=== PATIENT | female | born 1945 | race Caucasian/White ===

== ENCOUNTER 2017-06-16 07:43 | Inpatient (IN) | payer MEDICARE, MEDICAID ==
[~2017-06-16] VITALS: Ht 160 cm; Wt 81.2 kg
[2017-06-16] VITALS (10 sets, daily range): BP systolic 88–122; BP diastolic 35–71
[2017-06-16] MEDS ORDERED: Ipratropium 0.02% Inh Soln 2.5ml UD HHN ONE (08:00)
[2017-06-16] MEDS ORDERED: Vancomycin 1.5gm/D5W 250ml 325 ML IVPB ONE (08:00)
[2017-06-16] MEDS ORDERED: Cefepime HCl 2 GM in NS 110 ML IV SCH (08:00)
[2017-06-16] MEDS ORDERED: Acetaminophen 500mg (ES) tab ORAL ONE (08:00)
[2017-06-16] MEDS ORDERED: Albuterol ud Inhalation HHN ONE (08:00)
[2017-06-16] MEDS ORDERED: LORazepam Inj 2mg/ml 1ml IV ONE (08:30)
[2017-06-16 08:32] LABS: HEMATOCRIT 41.7 % (37.0-47.0); HEMOGLOBIN 13.7 G/DL (12.0-16.0); MEAN CORPUSCULAR VOLUME 96 FL (80-99); PLATELET COUNT 235 K/UL (150-450); RED BLOOD COUNT 4.34 M/UL (4.20-5.40); RED CELL DISTRIBUTION WIDTH 12.3 % (11.6-14.8); WHITE BLOOD COUNT 14.8 K/UL (4.8-10.8)
[2017-06-16 08:45] LABS: ANION GAP 4 mmol/L (5-15); BLOOD UREA NITROGEN 12 mg/dL (7-18); CALCIUM 7.9 MG/DL (8.5-10.1); CARBON DIOXIDE 35 MMOL/L (21-32); CHLORIDE 94 MMOL/L (98-107); CREATININE 0.6 MG/DL (0.55-1.30); POTASSIUM 3.6 MMOL/L (3.5-5.1); SODIUM 133 MMOL/L (136-145)
[2017-06-16 08:48] LABS: ALANINE AMINOTRANSFERASE 52 U/L (12-78); ALBUMIN 2.6 G/DL (3.4-5.0); ALBUMIN/GLOBULIN RATIO 0.6 (1.0-2.7); ALKALINE PHOSPHATASE 105 U/L (46-116); ASPARTATE AMINO TRANSFERASE 23 U/L (15-37); BILIRUBIN,TOTAL 0.9 MG/DL (0.2-1.0)
[2017-06-16] MEDS ORDERED: Cefepime 2gm ONE (09:01)
[2017-06-16 09:13] LABS: APPEARANCE,URINE CLEAR; BILIRUBIN, URINE NEGATIVE (NEGATIVE); GLUCOSE, URINE (UA) NEGATIVE (NEGATIVE); KETONES,URINE 2+ (NEGATIVE); LEUKOCYTE ESTERASE ,URINE NEGATIVE (NEGATIVE); NITRITE,URINE NEGATIVE (NEGATIVE); PH,URINE 6 (4.5-8.0); PROTEIN,URINE 1+ (NEGATIVE); UROBILINOGEN,URINE 4 MG/DL (0.0-1.0)
[2017-06-16 09:15] LABS: COLOR,URINE YELLOW
--- NOTE | 2017-06-16 09:38 | Emergency Room Report ---
History of Present Illness General Chief Complaint: Dyspnea/Respdistress Source: Patient, EMS Present Illness HPI Patient presents from a alf facility. She presents by EMS for shortness of breath and decreased oxygen saturation. She has a history of congestive heart failure, schizophrenia and GERD. Per report, the patient had a desaturation into the high 80s at the alf facility. The patient states she has had a cough and shortness of breath for the past 3 days. She also has had sputum production. She denies abdominal pain or chest pain. She denies dysuria or hematuria. She has no other complaints. Allergies: Coded Allergies: HALOPERIDOL (Verified Allergy, Unknown, 06/16/17) PREDNISONE (Verified Allergy, Unknown, 06/16/17) Patient History Past Medical History: see triage record, HTN, NE, CAD, CHF, COPD, GERD, psych hx Social History: Denies: smoking, alcohol use, drug use Reviewed Nursing Documentation: PMH: Agreed, PSxH: Agreed Review of Systems All Other Systems: negative except mentioned in HPI Physical Exam Vital Signs Date Time Temp Pulse Resp B/P (MAP) Pulse Ox O2 Delivery O2 Flow Rate FiO2 06/16/17 07:39 100.9 80 23 124/70 98 Non-Rebreather 15.0 06/16/17 08:11 100 Sp02 EP Interpretation: reviewed, normal General Appearance: no apparent distress, alert, GCS 15, non-toxic Head: normocephalic, atraumatic Eyes: bilateral eye normal inspection, bilateral eye PERRL ENT: hearing grossly normal, normal pharynx, no angioedema, normal voice Neck: full range of motion, supple/symm/no masses Respiratory: chest non-tender, respiratory distress, accessory muscle use, rales, rhonchi, speaking full sentences Cardiovascular #1: no edema, tachycardia, irregularly irregular Gastrointestinal: normal bowel sounds, non tender, soft, non-distended, no guarding, no rebound Rectal: deferred Musculoskeletal: back normal, normal range of motion Neurologic: alert, responsive, motor strength/tone normal, sensory intact, speech normal Psychiatric: judgement/insight normal, mood/affect normal, no suicidal/ homicidal ideation Skin: normal color, no rash, warm/dry, well hydrated Medical Decision Making Diagnostic Impression: Primary Impression: Respiratory distress Additional Impressions: CHF exacerbation Fever Sepsis COPD exacerbation Atrial fibrillation with RVR ER Course This patient is complicated. She presented in respiratory distress and febrile. Initially, I thought that this patient had pneumonia. However, the patient had very severe rales throughout her lung howard. She was given broad- spectrum antibiotics. She's also found to be in CHF based on chest x-ray. Given the fever, as given broad-spectrum antibiotics. She's also found to be in atrial fibrillation with a rapid ventricular rate. She has a history of COPD was also treated as a COPD exacerbation in addition to getting IV lasix for CHF exacerbation. The patient was also placed on BiPAP do to her tachypnea and work of breathing. She did have significant improvement in her tachypnea, heart rate and work of breathing after treatment. She is admitted to the ICU step down. This patient is critically ill. This patient required complex medical decision- making, aggressive intervention, extensive laboratory workup and monitoring. Critical care time: 40 minutes. Laboratory Tests Test 06/16/17 08:00 06/16/17 08:50 White Blood Count 14.8 K/UL (4.8-10.8) H Red Blood Count 4.34 M/UL (4.20-5.40) Hemoglobin 13.7 G/DL (12.0-16.0) Hematocrit 41.7 % (37.0-47.0) Mean Corpuscular Volume 96 FL (80-99) Mean Corpuscular Hemoglobin 31.5 PG (27.0-31.0) H Mean Corpuscular Hemoglobin Concent 32.7 G/DL (32.0-36.0) Red Cell Distribution Width 12.3 % (11.6-14.8) Platelet Count 235 K/UL (150-450) Mean Platelet Volume 6.0 FL (6.5-10.1) L Neutrophils (%) (Auto) % (45.0-75.0) Lymphocytes (%) (Auto) % (20.0-45.0) Monocytes (%) (Auto) % (1.0-10.0) Eosinophils (%) (Auto) % (0.0-3.0) Basophils (%) (Auto) % (0.0-2.0) Neutrophils % (Manual) Pending Lymphocytes % (Manual) Pending Platelet Estimate Pending Platelet Morphology Pending Sodium Level 133 MMOL/L (136-145) L Potassium Level 3.6 MMOL/L (3.5-5.1) Chloride Level 94 MMOL/L (98-107) L Carbon Dioxide Level 35 MMOL/L (21-32) H Anion Gap 4 mmol/L (5-15) L Blood Urea Nitrogen 12 mg/dL (7-18) Creatinine 0.6 MG/DL (0.55-1.30) Estimate Glomerular Filtration Rate mL/min (>60) Glucose Level 119 MG/DL (74-106) H Lactic Acid Level 1.70 mmol/L (0.66-2.22) Calcium Level 7.9 MG/DL (8.5-10.1) L Total Bilirubin 0.9 MG/DL (0.2-1.0) Aspartate Amino Transferase (AST) 23 U/L (15-37) Alanine Aminotransferase (ALT) 52 U/L (12-78) Alkaline Phosphatase 105 U/L (46-116) Troponin I 0.052 ng/mL (0.000-0.056) Total Protein 7.0 G/DL (6.4-8.2) Albumin 2.6 G/DL (3.4-5.0) L Globulin 4.4 g/dL Albumin/Globulin Ratio 0.6 (1.0-2.7) L Urine Color Yellow Urine Appearance Clear Urine pH 6 (4.5-8.0) Urine Specific [place] 1.015 (1.005-1.035) Urine Protein 1+ (NEGATIVE) H Urine Glucose (UA) Negative (NEGATIVE) Urine Ketones 2+ (NEGATIVE) H Urine Occult Blood Negative (NEGATIVE) Urine Nitrite Negative (NEGATIVE) Urine Bilirubin Negative (NEGATIVE) Urine Urobilinogen 4 MG/DL (0.0-1.0) H Urine Leukocyte Esterase Negative (NEGATIVE) Urine RBC Pending Urine WBC Pending Urine Squamous Epithelial Cells Pending Urine Bacteria Pending Microbiology Date/Time Source Procedure Growth Status 06/16/17 08:12 Nasal Nares Influenza Types A,B Antigen (LANCE) - Final Complete EKG Diagnostic Results Rate: tachycardiac Rhythm: other - A.fib ST Segments: no acute changes Other Impression A.fib w/RVR Rhythm Strip Diag. Results EP Interpretation: yes Rate: 120's Rhythm: no PVC's, other Other Impression A.fib w/RVR Chest X-Ray Diagnostic Results Chest X-Ray Diagnostic Results : Chest X-Ray Ordered: Yes # of Views/Limited/Complete: 1 View Indication: Shortness of Breath EP Interpretation: Yes Interpretation: other Impression: Other - Diffuse patchy opacities Last Vital Signs Date Time Temp Pulse Resp B/P (MAP) Pulse Ox O2 Delivery O2 Flow Rate FiO2 06/16/17 09:08 112 16 98 Facial 100 06/16/17 08:00 15.0 06/16/17 08:00 88/71 06/16/17 07:54 101.4 Disposition: ADMITTED INPATIENT Condition: Critical Referrals: [facility] INFANTE (PCP) KRISTY HUNT D.O. Jun 16, 2017 09:38
--- NOTE | 2017-06-16 12:49 | Diagnostic Imaging Report ---
Indication: Shortness of breath Technique: One view of the chest Comparison: none Findings: There is generalized mild interstitial prominence, and central bronchial wall thickening. There is slight blunting of left costophrenic sulcus. The heart is borderline enlarged. There is surgical hardware in the left humerus Impression: Generalized mild interstitial prominence with central bronchial wall thickening. Suspect on the basis of chronic/senescent changes, but mild interstitial congestion not completely excludable Cannot rule out small left pleural effusion
[2017-06-16] MEDS ORDERED: Albuterol/Ipratropium 3ml neb HHN PRN (13:00)
[2017-06-16] MEDS ORDERED: LORazepam Inj 2mg/ml 1ml IV PRN (13:00)
[2017-06-16] MEDS ORDERED: Nitroglycerin Subl 0.4mg tab SL PRN (13:00)
[2017-06-16] MEDS ORDERED: VENTOLIN HFA18 GM INH (15:14)
[2017-06-16] MEDS ORDERED: FOLIC ACID1 MG ORAL (15:14)
[2017-06-16] MEDS ORDERED: METOPROLOL TART25 MG ORAL ×2 (15:14→20:04)
[2017-06-16] MEDS ORDERED: FUROSEMIDE20 M1 ORAL (15:14)
[2017-06-16] MEDS ORDERED: FERROUS SULFAT325 M2 ORAL (15:14)
[2017-06-16] MEDS ORDERED: DIVALPROEX SOD500 M2 PO (15:14)
[2017-06-16] MEDS ORDERED: DULCOLAX10 MG RC (15:14)
[2017-06-16] MEDS ORDERED: PROTONIX40 MG ORAL (15:14)
[2017-06-16] MEDS ORDERED: LYRICA50 MG ORAL ×2 (15:14→20:04)
[2017-06-16] MEDS ORDERED: POTASSIUM CHLO10 ME2 PO (15:14)
[2017-06-16] MEDS ORDERED: MOM30 ML ORAL (15:14)
[2017-06-16] MEDS ORDERED: LEVOTHYROXINE125 MCG ORAL ×2 (15:14→20:16)
[2017-06-16] MEDS ORDERED: SENNA LAXATIVE1 EAC1 PO (15:14)
[2017-06-16] MEDS ORDERED: VITAMIN B122500 MCG PO (15:14)
[2017-06-16] MEDS ORDERED: TYLENOL EXTRA500 MG ORAL (15:14)
[2017-06-16] MEDS ORDERED: FLEET ENEMA133 M1 RC (15:14)
--- NOTE | 2017-06-16 15:52 | Cardiology Report ---
APPROVED REPORT EXAM: Two-dimensional and M-mode echocardiogram with Doppler and color Doppler. INDICATION LV FUNCTION M-Mode DIMENSIONS IVSd2.1 (0.7-1.1cm)Left Atrium (MM)4.7 (1.6-4.0cm) LVDd3.8 (3.5-5.6cm)Aortic Root3.2 (2.0-3.7cm) PWd1.9 (0.7-1.1cm)Aortic Cusp Exc.1.8 (1.5-2.0cm) IVSs2.0 cm LVDs2.7 (2.5-4.0cm) PWs2.0 cm Technically difficult study due to poor acoustical window and patient position. This study precludes analysis of LV wall motion and function. Mild left ventricular hypertrophy by 2-D. No evidence of pericardial effusion All other cardiac chamber size are within normal limits. Thickened mitral valve leaflets with normal excursion. Mitral annulus and aortic root calcification. Pulmonic valve are not well visualized . Normal tricuspid valve structure. IVC dilated at size 3.3with physiologic collapse . Subcostal views can not obtained. A color flow and spectral Doppler study was performed and revealed: Trace tricuspid regurgitation. Tricuspid systolic velocities suggests peak right ventricular systolic pressure of 20 mmHg . No Pulmonic regurgitation present.
[2017-06-16] MEDS ORDERED: Zosyn 3.375gm inj ONE ×2 (16:17→22:10)
[2017-06-16] MEDS: Piperacillin/Tazobactam 3.375 GM in NS 110 ML IVPB SCH ×2 (16:25→22:20)
[2017-06-16] MEDS ORDERED: ZOFRAN4 M3 ORAL (20:04)
[2017-06-16] MEDS ORDERED: SENNA-DOCUSATE1 EACH PO (20:04)
[2017-06-16] MEDS ORDERED: LACTULOSE20 GM/301 ORAL (20:04)
[2017-06-16] MEDS ORDERED: FERROUS SULFAT325 MG ORAL (20:04)
[2017-06-16] MEDS ORDERED: POTASSIUM CHLO10 MEQ ORAL (20:04)
[2017-06-16] MEDS ORDERED: LEVOTHYROXINE150 MCG ORAL (20:04)
[2017-06-16] MEDS ORDERED: NYSTATIN15 GM TOPIC (20:04)
[2017-06-16] MEDS ORDERED: ZYPREXA2.5 MG ORAL (20:04)
[2017-06-16] MEDS ORDERED: MAG-OXIDE400 M1 PO (20:04)
[2017-06-16] MEDS ORDERED: ADVAIR 100-501 EACH INH (20:04)
[2017-06-16] MEDS ORDERED: LORAZEPAM1 MG ORAL (20:04)
[2017-06-16] MEDS ORDERED: NORCO 5-325 TA1 EACH ORAL (20:04)
[2017-06-16] MEDS ORDERED: ACETAMINOPHEN325 M1 ORAL (20:18)
[2017-06-16] MEDS ORDERED: SENNA8.6 M2 PO (20:23)
[2017-06-16] MEDS: Theophylline ER 100mg ORAL SCH (22:19)
[2017-06-16] MEDS: Heparin 5000 units/ml inj SUBQ SCH (22:19)
--- NOTE | 2017-06-16 22:39 | History and Physical ---
History of Present Illness General Date patient seen: Jun 15, 2017 Reason for Hospitalization: Dyspnea/Respdistress Present Illness HPI 71 year old patient wtih PMHx of COPD, schizopherenia, MELVIN, BIPAP, congestive heart failure, schizophrenia presented from a detention facility for shortness of breath and decreased oxygen saturation. the patient had a desaturation into the high 80s at the detention facility. The patient states she has had a cough and shortness of breath for the past 3 days. She also has had sputum production. She was febrile in ER and had rapid afib. she is being transferred to [facility] for further evaluation. Allergies: Coded Allergies: HALOPERIDOL (Verified Allergy, Unknown, 06/16/17) PREDNISONE (Verified Allergy, Unknown, 06/16/17) Medication History Scheduled Albuterol Sulfate (Ventolin Hfa), 2 PUFFS INH EVERY 6 HOURS, (Reported) Divalproex Sodium (Divalproex Sodium Er), 500 MG PO Q12HR, (Reported) Ferrous Sulfate* (Ferrous Sulfate*), 325 MG ORAL THREE TIMES A DAY, (Reported) Folic Acid* (Folic Acid*), 1 MG ORAL DAILY, (Reported) Furosemide* (Lasix*), 20 MG ORAL DAILY, (Reported) Lactulose (Lactulose*), 30 ML ORAL BID, (Reported) Levothyroxine Sodium* (Levothyroxine Sodium*), 125 MCG ORAL DAILY, (Reported) Magnesium Hydroxide (Milk of Magnesia), 30 ML ORAL DAILY, (Reported) Metoprolol Tartrate* (Metoprolol Tartrate*), 25 MG ORAL EVERY 12 HOURS, ( Reported) Pantoprazole* (Protonix*), 40 MG ORAL BID, (Reported) Potassium Chloride* (K-Dur*), 10 MEQ ORAL DAILY, (Reported) Pregabalin (Lyrica), 50 MG ORAL DAILY, (Reported) Scheduled PRN Acetaminophen* (Tylenol Extra Strength*), 650 MG ORAL Q4HR PRN for Mild Pain ( Pain Scale 1-3), (Reported) Acetaminophen* (Acetaminophen 325MG Tablet*), 650 MG ORAL Q4H PRN for TEMP <101, (Reported) Na Phos,M-B/Na Phos,Di-Ba (Fleet Enema), 133 ML RC EVERY OTHER DAY PRN for Constipation, (Reported) Sennosides (Senna), 17.2 MG PO DAILY PRN for Constipation, (Reported) Miscellaneous Medications Bisacodyl (Dulcolax), 10 MG RC, (Reported) Cyanocobalamin (Vitamin B-12) (Vitamin B12), 100 MCG PO, (Reported) Patient History Healthcare decision maker Resuscitation status Advanced Directive on File Past Medical/Surgical History Past Medical/Surgical History: (1) COPD (chronic obstructive pulmonary disease) (2) CHF (congestive heart failure) (3) MELVIN (obstructive sleep apnea) Review of Systems Respiratory: Reports: shortness of breath, sputum All Other Systems: negative except mentioned in HPI Physical Exam General Appearance: WD/WN Lines, tubes and drains: peripheral HEENT: normocephalic, atraumatic Neck: non-tender, supple Respiratory/Chest: lungs clear, rhonchi - bilaterally Cardiovascular/Chest: normal peripheral pulses Abdomen: normal bowel sounds Genitourinary/Rectal: normal genital exam, normal prostate exam Extremities: normal range of motion Last 24 Hour Vital Signs Date Time Temp Pulse Resp B/P (MAP) Pulse Ox O2 Delivery O2 Flow Rate FiO2 06/16/17 21:16 120 26 98 Facial 45 06/16/17 19:17 126 29 96 Facial 45 06/16/17 19:00 132 27 103/35 94 Non-Rebreather 15.0 45 06/16/17 17:30 120 25 111/52 95 Non-Rebreather 15.0 45 06/16/17 16:50 125 23 93 Facial 45 06/16/17 15:30 124 22 111/44 93 Non-Rebreather 15.0 45 06/16/17 14:54 125 21 96 Facial 45 06/16/17 14:00 119 24 113/46 97 Non-Rebreather 15.0 45 06/16/17 13:00 106 20 92/47 93 Non-Rebreather 15.0 45 106 06/16/17 12:34 121 20 92 Facial 45 06/16/17 12:00 113 19 122/46 97 Non-Rebreather 15.0 45 06/16/17 10:37 15.0 45 06/16/17 10:30 127 20 98 Facial 45 06/16/17 10:00 19 110/52 94 Non-Rebreather 15.0 100 06/16/17 09:08 112 16 98 Facial 100 06/16/17 08:25 111 21 98 Bi-pap 100 06/16/17 08:14 125 21 98 Facial 100 06/16/17 08:11 125 25 98 Bi-pap 100 06/16/17 08:11 125 25 Bi-pap 100 06/16/17 08:00 121 22 Non-Rebreather 15.0 06/16/17 08:00 121 22 88/71 98 Non-Rebreather 15.0 06/16/17 08:00 100 06/16/17 07:54 101.4 06/16/17 07:39 100.9 80 23 124/70 98 Non-Rebreather 15.0 Laboratory Tests Test 06/16/17 08:00 06/16/17 08:50 06/16/17 10:05 White Blood Count 14.8 K/UL (4.8-10.8) H Red Blood Count 4.34 M/UL (4.20-5.40) Hemoglobin 13.7 G/DL (12.0-16.0) Hematocrit 41.7 % (37.0-47.0) Mean Corpuscular Volume 96 FL (80-99) Mean Corpuscular Hemoglobin 31.5 PG (27.0-31.0) H Mean Corpuscular Hemoglobin Concent 32.7 G/DL (32.0-36.0) Red Cell Distribution Width 12.3 % (11.6-14.8) Platelet Count 235 K/UL (150-450) Mean Platelet Volume 6.0 FL (6.5-10.1) L Neutrophils (%) (Auto) % (45.0-75.0) Lymphocytes (%) (Auto) % (20.0-45.0) Monocytes (%) (Auto) % (1.0-10.0) Eosinophils (%) (Auto) % (0.0-3.0) Basophils (%) (Auto) % (0.0-2.0) Differential Total Cells Counted 100 Neutrophils % (Manual) 79 % (45-75) H Lymphocytes % (Manual) 3 % (20-45) L Monocytes % (Manual) 14 % (1-10) H Eosinophils % (Manual) 0 % (0-3) Basophils % (Manual) 0 % (0-2) Band Neutrophils 4 % (0-8) Platelet Estimate Adequate Platelet Morphology Normal Red Blood Cell Morphology Normal Sodium Level 133 MMOL/L (136-145) L Potassium Level 3.6 MMOL/L (3.5-5.1) Chloride Level 94 MMOL/L (98-107) L Carbon Dioxide Level 35 MMOL/L (21-32) H Anion Gap 4 mmol/L (5-15) L Blood Urea Nitrogen 12 mg/dL (7-18) Creatinine 0.6 MG/DL (0.55-1.30) Estimat Glomerular Filtration Rate mL/min (>60) Glucose Level 119 MG/DL (74-106) H Lactic Acid Level 1.70 mmol/L (0.66-2.22) Calcium Level 7.9 MG/DL (8.5-10.1) L Total Bilirubin 0.9 MG/DL (0.2-1.0) Aspartate Amino Transf (AST/SGOT) 23 U/L (15-37) Alanine Aminotransferase (ALT/SGPT) 52 U/L (12-78) Alkaline Phosphatase 105 U/L (46-116) Troponin I 0.052 ng/mL (0.000-0.056) Total Protein 7.0 G/DL (6.4-8.2) Albumin 2.6 G/DL (3.4-5.0) L Globulin 4.4 g/dL Albumin/Globulin Ratio 0.6 (1.0-2.7) L Urine Color Yellow Urine Appearance Clear Urine pH 6 (4.5-8.0) Urine Specific [place] 1.015 (1.005-1.035) Urine Protein 1+ (NEGATIVE) H Urine Glucose (UA) Negative (NEGATIVE) Urine Ketones 2+ (NEGATIVE) H Urine Occult Blood Negative (NEGATIVE) Urine Nitrite Negative (NEGATIVE) Urine Bilirubin Negative (NEGATIVE) Urine Urobilinogen 4 MG/DL (0.0-1.0) H Urine Leukocyte Esterase Negative (NEGATIVE) Urine RBC 0-2 /HPF (0 - 2) Urine WBC 0-2 /HPF (0 - 2) Urine Squamous Epithelial Cells Few /LPF (NONE/OCC) Urine Bacteria Few /HPF (NONE) Urine Mucus Few /LPF (NONE/OCC) H Arterial Blood pH 7.410 (7.350-7.450) Arterial Blood Partial Pressure CO2 57.0 mmHg (35.0-45.0) *H Arterial Blood Partial Pressure O2 278.5 mmHg (75.0-100.0) H Arterial Blood HCO3 35.6 mmol/L (22.0-26.0) H Arterial Blood Oxygen Saturation 99.6 % (92.0-98.0) H Arterial Blood Base Excess 9.0 Nathan Test Positive Microbiology Date/Time Source Procedure Growth Status 06/16/17 08:12 Nasal Nares Influenza Types A,B Antigen (LANCE) - Final Complete Height (Feet): 5 Height (Inches): 4.00 Weight (Pounds): 180 Medications Current Medications Medications (Trade) Dose Ordered Sig/Marleni Route PRN Reason Start Time Stop Time Status Last Admin Dose Admin Albuterol/ Ipratropium (Albuterol/ Ipratropium) 3 ml Q4H PRN HHN dyspnea 06/16/17 13:00 06/21/17 12:59 Dextrose (Dextrose 50%) STAT PRN IV Hypoglycemia 06/16/17 13:00 07/16/17 12:59 Heparin Sodium (Porcine) (Heparin 5000 units/ml) 5,000 units EVERY 12 HOURS SUBQ 06/16/17 21:00 07/16/17 20:59 06/16/17 22:19 Ketorolac Tromethamine (Toradol 30mg) 30 mg Q8H PRN IV Moderate Pain (Pain Scale 4-6) 06/16/17 13:00 06/21/17 12:59 Lorazepam (Ativan 2mg/ml 1ml) 0.5 mg Q4H PRN IV For Anxiety 06/16/17 13:00 06/23/17 12:59 Morphine Sulfate (Morphine Sulfate) 2 mg Q4H PRN IVP Severe Pain (Pain Scale 7-10) 06/16/17 13:00 06/23/17 12:59 Nitroglycerin (Ntg) 0.4 mg Q5M X 3 DOSES PRN SL Prn Chest Pain 06/16/17 13:00 07/16/17 12:59 Ondansetron HCl (Zofran) 4 mg Q6H PRN IVP Nausea & Vomiting 06/16/17 13:00 07/16/17 12:59 Piperacillin Sod/ Tazobactam Sod 3.375 gm/Sodium Chloride 110 ml @ 220 mls/hr EVERY 8 HOURS IVPB 06/16/17 14:00 06/23/17 13:59 06/16/17 22:20 Promethazine HCl/ Codeine (Phenergan with Codeine) 5 ml Q6H PRN ORAL cough 06/16/17 13:00 07/16/17 12:59 Temazepam (Restoril) 15 mg HSPRN PRN ORAL Insomnia 06/16/17 21:00 06/23/17 20:59 Theophylline (Puma-Dur) 100 mg EVERY 12 HOURS ORAL 06/16/17 21:00 07/16/17 20:59 06/16/17 22:19 Assessment/Plan Problem List: (1) Respiratory distress ICD Codes: R06.03 - Acute respiratory distress SNOMED: 068018507 (2) CHF exacerbation ICD Codes: I50.9 - Heart failure, unspecified SNOMED: 47174498 (3) Atrial fibrillation with RVR ICD Codes: I48.91 - Unspecified atrial fibrillation SNOMED: 306644022848919 (4) COPD exacerbation ICD Codes: J44.1 - Chronic obstructive pulmonary disease with (acute) exacerbation SNOMED: 957377237582347 (5) Fever ICD Codes: R50.9 - Fever, unspecified SNOMED: 704261572 (6) MELVIN (obstructive sleep apnea) ICD Codes: G47.33 - Obstructive sleep apnea (adult) (pediatric) SNOMED: 15408715 Assessment/Plan respiratory treatment IV abx check sputum titrate fio2 cardizem cardio and ID to see. GURINDER ROY Jun 16, 2017 22:39
[2017-06-17] VITALS (12 sets, daily range): BP systolic 91–155; BP diastolic 36–88
[2017-06-17] MEDS ORDERED: Zosyn 3.375gm inj ONE (00:41)
[2017-06-17] MEDS ORDERED: dilTIAZem HCl 25mg/5ml Inj IVP ONE (01:15)
[2017-06-17] MEDS ORDERED: dilTIAZem HCl 125mg/25ml Inj IVPB ONE (02:17)
[2017-06-17] MEDS: Piperacillin/Tazobactam 3.375 GM in NS 110 ML IVPB SCH ×3 (05:49→21:18)
[2017-06-17] MEDS: Heparin 5000 units/ml inj SUBQ SCH ×2 (08:43→21:18)
[2017-06-17] MEDS: Theophylline ER 100mg ORAL SCH ×2 (09:00→21:18)
[2017-06-17] MEDS ORDERED: Pneumococcal Vaccine 25mcg/0.5ml IM ONE (09:00)
[2017-06-17] MEDS: Ketorolac 30mg Inj IV PRN ×2 (10:37→18:40)
--- NOTE | 2017-06-17 12:16 | Pulmonology Progress Note ---
Assessment/Plan Problems: (1) Respiratory distress (2) CHF exacerbation (3) Atrial fibrillation with RVR (4) COPD exacerbation (5) Fever (6) MELVIN (obstructive sleep apnea) Assessment/Plan afebrile doing better continue abx check cxr and bnp f/u cardio recommendations Subjective Interval Events: still on bipap, desaturated upon stopping BIPAP Allergies: Coded Allergies: HALOPERIDOL (Verified Allergy, Unknown, 06/16/17) PREDNISONE (Verified Allergy, Unknown, 06/16/17) Objective Last 24 Hour Vital Signs Date Time Temp Pulse Resp B/P (MAP) Pulse Ox O2 Delivery O2 Flow Rate FiO2 06/17/17 11:02 101 20 155/54 91 Bi-pap 45 06/17/17 10:54 120 21 92 Facial 45 06/17/17 09:36 101 19 97 Facial 45 06/17/17 08:00 98.2 133 20 111/54 90 Bi-pap 45 06/17/17 08:00 45 06/17/17 07:46 84 19 95 Facial 45 06/17/17 06:00 98.5 89 20 109/57 93 Bi-pap 45 06/17/17 05:19 71 18 96 Facial 45 06/17/17 05:05 101 06/17/17 04:00 15.0 45 06/17/17 04:00 98.3 105 20 103/61 95 Bi-pap 45 06/17/17 03:02 112 19 97 Facial 45 06/17/17 02:32 129 125/68 06/17/17 01:53 147 147/85 06/17/17 00:55 115 27 97 Facial 45 06/17/17 00:50 101.4 123 18 127/88 98 Bi-pap 06/17/17 00:50 98.9 129 22 127/88 97 Bi-pap 06/16/17 23:05 93 18 96 Facial 45 06/16/17 23:00 98.9 131 25 121/69 97 Bi-pap 06/16/17 21:16 120 26 98 Facial 45 06/16/17 21:00 98.9 130 26 115/56 97 Bi-pap 06/16/17 19:17 126 29 96 Facial 45 06/16/17 19:00 132 27 103/35 94 Non-Rebreather 15.0 45 06/16/17 17:30 120 25 111/52 95 Non-Rebreather 15.0 45 06/16/17 16:50 125 23 93 Facial 45 06/16/17 15:30 124 22 111/44 93 Non-Rebreather 15.0 45 06/16/17 14:54 125 21 96 Facial 45 06/16/17 14:00 119 24 113/46 97 Non-Rebreather 15.0 45 06/16/17 13:00 106 20 92/47 93 Non-Rebreather 15.0 45 106 06/16/17 12:34 121 20 92 Facial 45 Intake and Output 06/16/17 06/17/17 19:00 07:00 Intake Total 260 ml 211.0 ml Balance 260 ml 211.0 ml Intake IV Total 260 ml 91.0 ml Other 120 ml # Voids 2 # Bowel Movements 2 Objective General Appearance: Obese Lines, tubes and drains: peripheral HEENT: normocephalic, atraumatic Neck: non-tender, supple Respiratory/Chest: lungs clear, rhonchi - bilaterally Cardiovascular/Chest: normal peripheral pulses Abdomen: normal bowel sounds Genitourinary/Rectal: normal genital exam, normal prostate exam Extremities: normal range of motion Microbiology Date/Time Source Procedure Growth Status 06/16/17 08:12 Nasal Nares Influenza Types A,B Antigen (LANCE) - Final Complete Current Medications Medications (Trade) Dose Ordered Sig/Marleni Route PRN Reason Start Time Stop Time Status Last Admin Dose Admin Albuterol/ Ipratropium (Albuterol/ Ipratropium) 3 ml Q4H PRN HHN dyspnea 06/16/17 13:00 06/21/17 12:59 Dextrose (Dextrose 50%) STAT PRN IV Hypoglycemia 06/16/17 13:00 07/16/17 12:59 Diltiazem HCl 125 mg/Dextrose 125 ml @ 0 mls/hr Q24H IV 06/17/17 01:30 06/18/17 01:29 06/17/17 02:32 Heparin Sodium (Porcine) (Heparin 5000 units/ml) 5,000 units EVERY 12 HOURS SUBQ 06/16/17 21:00 07/16/17 20:59 06/17/17 08:43 Influenza Virus Vaccine Quadrival (Flu Vaccine Quadrivalent) 0.5 ml ONCE ONCE IM 06/17/17 09:00 06/17/17 09:01 UNV Ketorolac Tromethamine (Toradol 30mg) 30 mg Q8H PRN IV Moderate Pain (Pain Scale 4-6) 06/16/17 13:00 06/21/17 12:59 06/17/17 10:37 Lorazepam (Ativan 2mg/ml 1ml) 0.5 mg Q4H PRN IV For Anxiety 06/16/17 13:00 06/23/17 12:59 Morphine Sulfate (Morphine Sulfate) 2 mg Q4H PRN IVP Severe Pain (Pain Scale 7-10) 06/16/17 13:00 06/23/17 12:59 Nitroglycerin (Ntg) 0.4 mg Q5M X 3 DOSES PRN SL Prn Chest Pain 06/16/17 13:00 07/16/17 12:59 Ondansetron HCl (Zofran) 4 mg Q6H PRN IVP Nausea & Vomiting 06/16/17 13:00 07/16/17 12:59 Piperacillin Sod/ Tazobactam Sod 3.375 gm/Sodium Chloride 110 ml @ 220 mls/hr EVERY 8 HOURS IVPB 06/16/17 14:00 06/23/17 13:59 06/17/17 05:49 Pneumococcal Polyvalent Vaccine (Pneumovax) 0.5 ml ONCE ONCE IM 06/17/17 09:00 06/17/17 09:01 UNV Promethazine HCl/ Codeine (Phenergan with Codeine) 5 ml Q6H PRN ORAL cough 06/16/17 13:00 07/16/17 12:59 Temazepam (Restoril) 15 mg HSPRN PRN ORAL Insomnia 06/16/17 21:00 06/23/17 20:59 Theophylline (Puma-Dur) 100 mg EVERY 12 HOURS ORAL 06/16/17 21:00 07/16/17 20:59 06/16/17 22:19 GURINDER ROY Jun 17, 2017 12:16
[2017-06-17 13:28] LABS: HEMOGLOBIN 12.2 G/DL (12.0-16.0); MEAN CORPUSCULAR VOLUME 96 FL (80-99); PLATELET COUNT 214 K/UL (150-450); RED BLOOD COUNT 3.74 M/UL (4.20-5.40); RED CELL DISTRIBUTION WIDTH 11.8 % (11.6-14.8); WHITE BLOOD COUNT 12.2 K/UL (4.8-10.8)
[2017-06-17 13:45] LABS: ALANINE AMINOTRANSFERASE 30 U/L (12-78); ALBUMIN/GLOBULIN RATIO 0.5 (1.0-2.7); ALKALINE PHOSPHATASE 75 U/L (46-116); ANION GAP 5 mmol/L (5-15); ASPARTATE AMINO TRANSFERASE 7 U/L (15-37); BILIRUBIN,TOTAL 0.6 MG/DL (0.2-1.0); BLOOD UREA NITROGEN 11 mg/dL (7-18); CALCIUM 7.7 MG/DL (8.5-10.1); CARBON DIOXIDE 36 MMOL/L (21-32); CHLORIDE 97 MMOL/L (98-107); CREATININE 0.5 MG/DL (0.55-1.30); POTASSIUM 3.4 MMOL/L (3.5-5.1); SODIUM 138 MMOL/L (136-145)
--- NOTE | 2017-06-17 17:35 | Cardiology Progress Note ---
Assessment/Plan Assessment/Plan [id number] mat no need for Cardizem treat underlying pulm insuf hs of gib needing multiple transfusion dn duodenal artery embolization hs of chf /dhf ef previously 45-50 by report Objective Last 24 Hour Vital Signs Date Time Temp Pulse Resp B/P (MAP) Pulse Ox O2 Delivery O2 Flow Rate FiO2 06/17/17 16:00 45 06/17/17 16:00 70 20 91/36 92 Bi-pap 45 06/17/17 15:05 110 21 95 Facial 45 06/17/17 15:00 91 20 94/60 92 Bi-pap 45 06/17/17 14:00 88 20 105/36 94 Bi-pap 45 06/17/17 13:37 116 17 94 Facial 45 06/17/17 13:00 98.1 102 16 100/66 94 Bi-pap 45 06/17/17 12:00 101 20 101/40 91 Bi-pap 45 06/17/17 12:00 45 06/17/17 11:02 101 20 155/54 91 Bi-pap 45 06/17/17 10:54 120 21 92 Facial 45 06/17/17 09:36 101 19 97 Facial 45 06/17/17 08:00 98.2 133 20 111/54 90 Bi-pap 45 06/17/17 08:00 45 06/17/17 07:46 84 19 95 Facial 45 06/17/17 06:00 98.5 89 20 109/57 93 Bi-pap 45 06/17/17 05:19 71 18 96 Facial 45 06/17/17 05:05 101 06/17/17 04:00 15.0 45 06/17/17 04:00 98.3 105 20 103/61 95 Bi-pap 45 06/17/17 03:02 112 19 97 Facial 45 06/17/17 02:32 129 125/68 06/17/17 01:53 147 147/85 06/17/17 00:55 115 27 97 Facial 45 06/17/17 00:50 101.4 123 18 127/88 98 Bi-pap 06/17/17 00:50 98.9 129 22 127/88 97 Bi-pap 06/16/17 23:05 93 18 96 Facial 45 06/16/17 23:00 98.9 131 25 121/69 97 Bi-pap 06/16/17 21:16 120 26 98 Facial 45 06/16/17 21:00 98.9 130 26 115/56 97 Bi-pap 06/16/17 19:17 126 29 96 Facial 45 06/16/17 19:00 132 27 103/35 94 Non-Rebreather 15.0 45 Intake and Output 06/16/17 06/17/17 19:00 07:00 Intake Total 260 ml 211.0 ml Balance 260 ml 211.0 ml Intake IV Total 260 ml 91.0 ml Other 120 ml # Voids 2 # Bowel Movements 2 Laboratory Tests Test 06/17/17 13:00 White Blood Count 12.2 K/UL (4.8-10.8) H Red Blood Count 3.74 M/UL (4.20-5.40) L Hemoglobin 12.2 G/DL (12.0-16.0) Hematocrit 36.0 % (37.0-47.0) L Mean Corpuscular Volume 96 FL (80-99) Mean Corpuscular Hemoglobin 32.7 PG (27.0-31.0) H Mean Corpuscular Hemoglobin Concent 33.9 G/DL (32.0-36.0) Red Cell Distribution Width 11.8 % (11.6-14.8) Platelet Count 214 K/UL (150-450) Mean Platelet Volume 5.9 FL (6.5-10.1) L Neutrophils (%) (Auto) % (45.0-75.0) Lymphocytes (%) (Auto) % (20.0-45.0) Monocytes (%) (Auto) % (1.0-10.0) Eosinophils (%) (Auto) % (0.0-3.0) Basophils (%) (Auto) % (0.0-2.0) Differential Total Cells Counted 100 Neutrophils % (Manual) 87 % (45-75) H Lymphocytes % (Manual) 8 % (20-45) L Monocytes % (Manual) 5 % (1-10) Eosinophils % (Manual) 0 % (0-3) Basophils % (Manual) 0 % (0-2) Band Neutrophils 0 % (0-8) Platelet Estimate Adequate Platelet Morphology Normal Red Blood Cell Morphology Normal Sodium Level 138 MMOL/L (136-145) Potassium Level 3.4 MMOL/L (3.5-5.1) L Chloride Level 97 MMOL/L (98-107) L Carbon Dioxide Level 36 MMOL/L (21-32) H Anion Gap 5 mmol/L (5-15) Blood Urea Nitrogen 11 mg/dL (7-18) Creatinine 0.5 MG/DL (0.55-1.30) L Estimat Glomerular Filtration Rate mL/min (>60) Glucose Level 93 MG/DL (74-106) Calcium Level 7.7 MG/DL (8.5-10.1) L Total Bilirubin 0.6 MG/DL (0.2-1.0) Aspartate Amino Transf (AST/SGOT) 7 U/L (15-37) L Alanine Aminotransferase (ALT/SGPT) 30 U/L (12-78) Alkaline Phosphatase 75 U/L (46-116) Total Protein 6.2 G/DL (6.4-8.2) L Albumin 2.0 G/DL (3.4-5.0) L Globulin 4.2 g/dL Albumin/Globulin Ratio 0.5 (1.0-2.7) L Microbiology Date/Time Source Procedure Growth Status 06/16/17 08:12 Nasal Nares Influenza Types A,B Antigen (LANCE) - Final Complete TIFFANI RINCON Jun 17, 2017 17:35
--- NOTE | 2017-06-17 17:40 | Consultation ---
History of Present Illness General Date patient seen: Jun 17, 2017 Time patient seen: 17:28 Chief Complaint: Dyspnea/Respdistress Present Illness HPI 71 y/o F with hx of HTN, AR, CAD, CHF, COPD, GERD, schizophrenia, SNF resident is brought by EMS to ED on 06/16 for SOB and hypoxia into the 80s at SNF. ALso had productive cough and SOB for 3 days Denied abd pain, CP, urinary symptoms upon admission. Febrile up to 101.4. Requiring Bipap. Leukocytosis up to 14, now improving. + sick contacts. Allergies: Coded Allergies: HALOPERIDOL (Verified Allergy, Unknown, 06/16/17) PREDNISONE (Verified Allergy, Unknown, 06/16/17) Medication History Scheduled Albuterol Sulfate (Ventolin Hfa), 2 PUFFS INH EVERY 6 HOURS, (Reported) Divalproex Sodium (Divalproex Sodium Er), 500 MG PO Q12HR, (Reported) Ferrous Sulfate* (Ferrous Sulfate*), 325 MG ORAL THREE TIMES A DAY, (Reported) Folic Acid* (Folic Acid*), 1 MG ORAL DAILY, (Reported) Furosemide* (Lasix*), 20 MG ORAL DAILY, (Reported) Lactulose (Lactulose*), 30 ML ORAL BID, (Reported) Levothyroxine Sodium* (Levothyroxine Sodium*), 125 MCG ORAL DAILY, (Reported) Magnesium Hydroxide (Milk of Magnesia), 30 ML ORAL DAILY, (Reported) Metoprolol Tartrate* (Metoprolol Tartrate*), 25 MG ORAL EVERY 12 HOURS, ( Reported) Pantoprazole* (Protonix*), 40 MG ORAL BID, (Reported) Potassium Chloride* (K-Dur*), 10 MEQ ORAL DAILY, (Reported) Pregabalin (Lyrica), 50 MG ORAL DAILY, (Reported) Scheduled PRN Acetaminophen* (Tylenol Extra Strength*), 650 MG ORAL Q4HR PRN for Mild Pain ( Pain Scale 1-3), (Reported) Acetaminophen* (Acetaminophen 325MG Tablet*), 650 MG ORAL Q4H PRN for TEMP <101, (Reported) Na Phos,M-B/Na Phos,Di-Ba (Fleet Enema), 133 ML RC EVERY OTHER DAY PRN for Constipation, (Reported) Sennosides (Senna), 17.2 MG PO DAILY PRN for Constipation, (Reported) Miscellaneous Medications Bisacodyl (Dulcolax), 10 MG RC, (Reported) Cyanocobalamin (Vitamin B-12) (Vitamin B12), 100 MCG PO, (Reported) Patient History Healthcare decision maker Resuscitation status Full Code Advanced Directive on File No Patient History Narrative PMhx: as above Shx: Denies: smoking, alcohol use, drug use Fhx: non contributory Review of Systems ROS Narrative As per HPI, otherwise negative Physical Exam Physical Exam Narrative General Appearance: Obese Lines, tubes and drains: peripheral HEENT: normocephalic, atraumatic Neck: non-tender, supple Respiratory/Chest: lungs clear, rhonchi - bilaterally Cardiovascular/Chest: normal peripheral pulses Abdomen: normal bowel sounds Extremities: normal range of motion Last 24 Hour Vital Signs Date Time Temp Pulse Resp B/P (MAP) Pulse Ox O2 Delivery O2 Flow Rate FiO2 06/17/17 16:00 45 06/17/17 16:00 70 20 91/36 92 Bi-pap 45 06/17/17 15:05 110 21 95 Facial 45 06/17/17 15:00 91 20 94/60 92 Bi-pap 45 06/17/17 14:00 88 20 105/36 94 Bi-pap 45 06/17/17 13:37 116 17 94 Facial 45 06/17/17 13:00 98.1 102 16 100/66 94 Bi-pap 45 06/17/17 12:00 101 20 101/40 91 Bi-pap 45 06/17/17 12:00 45 06/17/17 11:02 101 20 155/54 91 Bi-pap 45 06/17/17 10:54 120 21 92 Facial 45 06/17/17 09:36 101 19 97 Facial 45 06/17/17 08:00 98.2 133 20 111/54 90 Bi-pap 45 06/17/17 08:00 45 06/17/17 07:46 84 19 95 Facial 45 06/17/17 06:00 98.5 89 20 109/57 93 Bi-pap 45 06/17/17 05:19 71 18 96 Facial 45 06/17/17 05:05 101 06/17/17 04:00 15.0 45 06/17/17 04:00 98.3 105 20 103/61 95 Bi-pap 45 06/17/17 03:02 112 19 97 Facial 45 06/17/17 02:32 129 125/68 06/17/17 01:53 147 147/85 06/17/17 00:55 115 27 97 Facial 45 06/17/17 00:50 101.4 123 18 127/88 98 Bi-pap 06/17/17 00:50 98.9 129 22 127/88 97 Bi-pap 06/16/17 23:05 93 18 96 Facial 45 06/16/17 23:00 98.9 131 25 121/69 97 Bi-pap 06/16/17 21:16 120 26 98 Facial 45 06/16/17 21:00 98.9 130 26 115/56 97 Bi-pap 06/16/17 19:17 126 29 96 Facial 45 06/16/17 19:00 132 27 103/35 94 Non-Rebreather 15.0 45 06/16/17 17:30 120 25 111/52 95 Non-Rebreather 15.0 45 Intake and Output 06/16/17 06/17/17 19:00 07:00 Intake Total 260 ml 211.0 ml Balance 260 ml 211.0 ml Intake IV Total 260 ml 91.0 ml Other 120 ml # Voids 2 # Bowel Movements 2 Laboratory Tests Test 06/17/17 13:00 White Blood Count 12.2 K/UL (4.8-10.8) H Red Blood Count 3.74 M/UL (4.20-5.40) L Hemoglobin 12.2 G/DL (12.0-16.0) Hematocrit 36.0 % (37.0-47.0) L Mean Corpuscular Volume 96 FL (80-99) Mean Corpuscular Hemoglobin 32.7 PG (27.0-31.0) H Mean Corpuscular Hemoglobin Concent 33.9 G/DL (32.0-36.0) Red Cell Distribution Width 11.8 % (11.6-14.8) Platelet Count 214 K/UL (150-450) Mean Platelet Volume 5.9 FL (6.5-10.1) L Neutrophils (%) (Auto) % (45.0-75.0) Lymphocytes (%) (Auto) % (20.0-45.0) Monocytes (%) (Auto) % (1.0-10.0) Eosinophils (%) (Auto) % (0.0-3.0) Basophils (%) (Auto) % (0.0-2.0) Differential Total Cells Counted 100 Neutrophils % (Manual) 87 % (45-75) H Lymphocytes % (Manual) 8 % (20-45) L Monocytes % (Manual) 5 % (1-10) Eosinophils % (Manual) 0 % (0-3) Basophils % (Manual) 0 % (0-2) Band Neutrophils 0 % (0-8) Platelet Estimate Adequate Platelet Morphology Normal Red Blood Cell Morphology Normal Sodium Level 138 MMOL/L (136-145) Potassium Level 3.4 MMOL/L (3.5-5.1) L Chloride Level 97 MMOL/L (98-107) L Carbon Dioxide Level 36 MMOL/L (21-32) H Anion Gap 5 mmol/L (5-15) Blood Urea Nitrogen 11 mg/dL (7-18) Creatinine 0.5 MG/DL (0.55-1.30) L Estimat Glomerular Filtration Rate mL/min (>60) Glucose Level 93 MG/DL (74-106) Calcium Level 7.7 MG/DL (8.5-10.1) L Total Bilirubin 0.6 MG/DL (0.2-1.0) Aspartate Amino Transf (AST/SGOT) 7 U/L (15-37) L Alanine Aminotransferase (ALT/SGPT) 30 U/L (12-78) Alkaline Phosphatase 75 U/L (46-116) Total Protein 6.2 G/DL (6.4-8.2) L Albumin 2.0 G/DL (3.4-5.0) L Globulin 4.2 g/dL Albumin/Globulin Ratio 0.5 (1.0-2.7) L Height (Feet): 5 Height (Inches): 3.00 Weight (Pounds): 179 Medications Current Medications Medications (Trade) Dose Ordered Sig/Marleni Route PRN Reason Start Time Stop Time Status Last Admin Dose Admin Albuterol/ Ipratropium (Albuterol/ Ipratropium) 3 ml Q4H PRN HHN dyspnea 06/16/17 13:00 06/21/17 12:59 Dextrose (Dextrose 50%) STAT PRN IV Hypoglycemia 06/16/17 13:00 07/16/17 12:59 Heparin Sodium (Porcine) (Heparin 5000 units/ml) 5,000 units EVERY 12 HOURS SUBQ 06/16/17 21:00 07/16/17 20:59 06/17/17 08:43 Influenza Virus Vaccine Quadrival (Flu Vaccine Quadrivalent) 0.5 ml ONCE ONCE IM 06/17/17 18:00 06/17/17 18:01 Ketorolac Tromethamine (Toradol 30mg) 30 mg Q8H PRN IV Moderate Pain (Pain Scale 4-6) 06/16/17 13:00 06/21/17 12:59 06/17/17 10:37 Lorazepam (Ativan 2mg/ml 1ml) 0.5 mg Q4H PRN IV For Anxiety 06/16/17 13:00 06/23/17 12:59 Morphine Sulfate (Morphine Sulfate) 2 mg Q4H PRN IVP Severe Pain (Pain Scale 7-10) 06/16/17 13:00 06/23/17 12:59 Nitroglycerin (Ntg) 0.4 mg Q5M X 3 DOSES PRN SL Prn Chest Pain 06/16/17 13:00 07/16/17 12:59 Ondansetron HCl (Zofran) 4 mg Q6H PRN IVP Nausea & Vomiting 06/16/17 13:00 07/16/17 12:59 Piperacillin Sod/ Tazobactam Sod 3.375 gm/Sodium Chloride 110 ml @ 220 mls/hr EVERY 8 HOURS IVPB 06/16/17 14:00 06/23/17 13:59 06/17/17 14:54 Pneumococcal Polyvalent Vaccine (Pneumovax) 0.5 ml ONCE ONCE IM 06/17/17 09:00 06/17/17 09:01 UNV Promethazine HCl/ Codeine (Phenergan with Codeine) 5 ml Q6H PRN ORAL cough 06/16/17 13:00 07/16/17 12:59 Temazepam (Restoril) 15 mg HSPRN PRN ORAL Insomnia 06/16/17 21:00 06/23/17 20:59 Theophylline (Puma-Dur) 100 mg EVERY 12 HOURS ORAL 06/16/17 21:00 07/16/17 20:59 06/16/17 22:19 Assessment/Plan Assessment/Plan Abx: IV Vanco x1 06/16 Cefepime x1 06/16 Levaquin x1 06/16 Zosyn 06/16- Assessment: Acute hypoxic/hypercapenic resp failure- possible PNA, r/o flu -CXR: There is generalized mild interstitial prominence, and central bronchial wall thickening. There is slight blunting of left costophrenic sulcus. -influenza rapid neg Fever/leukocytosis- improving HTN, AR, CAD, CHF, COPD, GERD, schizophrenia, SNF resident Plan: -Continue Zosyn #2 pending sp cx and start empiric Tamiflu pending repeat Influenza test -hold flu shot for now while on Tamiflu; give vaccine prior to discharge -f/u cx -Monitor CBC/BMP, temperatures -aspiration precautions Thank you for this consultation. Will continue to follow along with you. Discussed with JAMEE. Ange Grant M.D. Jun 17, 2017 17:40
[2017-06-17] MEDS ORDERED: Flu Vaccine Quadrivalent 0.5ml IM ONE (18:00)
--- NOTE | 2017-06-17 20:15 | Consultation ---
DATE OF CONSULTATION: 06/17/2017 NOTE: INCOMPLETE DICTATION. CARDIOLOGY CONSULTATION REFERRING PHYSICIAN: Fartun Gan M.D. and Bill Lane D.O. REASON FOR REFERRAL: Tachycardia. HISTORY OF PRESENT ILLNESS: This is an elderly female, who is really a poor historian. At the present time, information is obtained from the patient directly from my review of the patient's chart. The patient is a resident of convalescent facility. She has had hospitalizations elsewhere. There are some records in her chart regarding her prior hospitalization, which I have had a chance to review. The patient is admitted to the hospital because of shortness of breath. Josesito Paulino M.D. DR: DAVE JOB#: [id number] CC:
[2017-06-18] VITALS: BP 116/60
--- NOTE | 2017-06-18 02:15 | Consultation ---
DATE OF CONSULTATION: 06/17/2017 CARDIOLOGY CONSULTATION CONSULTING PHYSICIAN: Josesito Paulino M.D. REFERRING PHYSICIAN: Fartun Gan M.D. and Bill Lane D.O. REASON FOR REFERRAL: Tachycardia. HISTORY OF PRESENT ILLNESS: This is a 71-year-old female, who is a resident of a convalescent facility. The patient was transferred from the convalescent facility because of shortness of breath and decreased oxygen saturation and because of history of congestive heart failure, schizophrenia, and gastroesophageal reflux disease. Saturations dropped down in the high 80s apparently according to the emergency room physician as the patient herself is somewhat of a poor historian and is on BiPAP at this time. She has had a history of cough and shortness of breath for the past 3 days. She has a history of sputum production apparently. She does admit to me that she is short of breath despite being on BiPAP. She denies any chest pain at this time and denies any palpitations. PAST MEDICAL HISTORY: Positive according to the records from prior hospital that she has had a history of acute anemia, iron deficiency, secondary to gastrointestinal bleeding, status post packed red cells and FFP transfusion. Endoscopy apparently on two separate occasions shows grade B esophagitis, two large clots in the fundus and near antrum of the stomach, one antral clot that connected with the duodenal bulb across the pylorus wall also was noted. The patient underwent apparently duodenal artery embolization with four coils at that time and she apparently received multiple blood transfusions. H. pylori IgA was negative. She was treated with PPIs subsequently. She has a history of hypertension, apparently a history of cardiomyopathy, ejection fraction of 45% with history of chronic systolic and diastolic heart failure and has a history of multifocal atrial tachycardia, history of psychiatric disorder and she has had prior hypovolemic shock and apparently this hospitalization was performed at [facility]. In her records, it indicates the patient having lack of capacity to refuse psychiatric medications. She has a history of possibly sleep apnea and possibly history of coronary artery disease, although that is not completely clear to me and not clear from the records either. ALLERGIES: She is reportedly allergic to Haldol and prednisone. SOCIAL HISTORY: It is unknown whether the patient has had any smoking or alcohol intake previously. REVIEW OF SYSTEMS: At this time really unable to obtain, although with some gestures, the patient denies any abdominal pain. No nausea at this time, but she indicates she has had nausea before. No diarrhea and no bloody or black stools. GENITOURINARY: She has a Huertas catheter. PULMONARY: Positive for coughing. CONSTITUTIONAL: No fevers or chills. PHYSICAL EXAMINATION: GENERAL: Shows to be an elderly female, on BiPAP, responsive, and tries to communicate difficult to hear to understand. VITAL SIGNS: Blood pressure anywhere between 91/36 to 105/36, heart rates in the 70s, but has had heart rates all the way up to 130s earlier in the middle of the night. She is 98.1 degrees and she is saturating between 92% to 95% on BiPAP therapy. NECK: Supple. LUNGS: Show prolonged expiratory phase wheezing. Some rhonchi noted. CARDIAC: Irregular, not tachycardic at the present time. ABDOMEN: Soft and nontender. Positive bowel sounds. EXTREMITIES: She has no clubbing, cyanosis, or edema. NEUROLOGICAL: She is arousable and responsive. LABORATORY AND DIAGNOSTIC DATA: White count 12.2, hemoglobin 12.2, and platelet count of 218. PH of 7.41, pCO2 57, pO2 of 270 with a bicarbonate of 36. Sodium is 138, potassium 3.4, chloride 97, bicarbonate 36, BUN of 11, creatinine 0.5 and glucose of 93. Albumin of 2.0. Troponin 0.052. Lactic acid of 1.7. Her urinalysis is fairly unremarkable. She has had some imaging. A chest x-ray was performed that shows generalized interstitial prominence with central bronchial wall thickening. Mild edema is not excluded. An echocardiogram has been performed, technically difficult study with LV function not being able to be estimated and the patient's electrocardiogram is suggestive of probable sinus versus multifocal atrial tachycardia. Although the EKG is interpreted as atrial fibrillation, there is clearly atrial activity present with variable degrees of MA interval as well consistent with multifocal atrial tachycardia. ASSESSMENT: 1. Multifocal atrial tachycardia. 2. Respiratory insufficiency. 3. 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 4. History of gastrointestinal bleeding requiring multiple transfusions with visible blood clots, status post embolization of duodenal artery. 5. History of psychiatric disorder. 6. History of systemic hypertension. 7. Possible sepsis. PLAN: This patient was seen in cardiac consultation. The patient had initially been started on Cardizem because of concern of a possibility of atrial fibrillation, but clearly there is atrial activity and this is likely multifocal atrial tachycardia. The Cardizem drip will be discontinued. The patient will be treated with antibiotics as indicated by Dr. Gan and would feel that her MAT would probably get worse because of the beta-agonist inhalers should she require to be used and really no significant treatment is available for underlying multifocal atrial tachycardia. We will follow the patient along. Cardizem will be considered again if true atrial fibrillation does occur. Cardiac enzymes and thyroid function tests will be ordered as well. Josesito Paulino M.D. DR: DAVE JOB#: [id number] CC:
[2017-06-18 04:00] VITALS: BP 105/60
[2017-06-18 05:12] LABS: BASOPHILS % (AUTO) 0.7 % (0.0-2.0); HEMATOCRIT 38.1 % (37.0-47.0); LYMPHOCYTES % (AUTO) 10.5 % (20.0-45.0); MEAN CORPUSCULAR VOLUME 97 FL (80-99); MONOCYTES % (AUTO) 8.5 % (1.0-10.0); NEUTROPHILS % (AUTO) 80.3 % (45.0-75.0); PLATELET COUNT 192 K/UL (150-450); RED BLOOD COUNT 3.92 M/UL (4.20-5.40); RED CELL DISTRIBUTION WIDTH 12.5 % (11.6-14.8); WHITE BLOOD COUNT 10.3 K/UL (4.8-10.8)
[2017-06-18] MEDS: Piperacillin/Tazobactam 3.375 GM in NS 110 ML IVPB SCH (05:15)
[2017-06-18 05:56] LABS: ALANINE AMINOTRANSFERASE 20 U/L (12-78); ALBUMIN/GLOBULIN RATIO 0.5 (1.0-2.7); ALKALINE PHOSPHATASE 74 U/L (46-116); ANION GAP 6 mmol/L (5-15); ASPARTATE AMINO TRANSFERASE 12 U/L (15-37); BILIRUBIN,TOTAL 0.5 MG/DL (0.2-1.0); BLOOD UREA NITROGEN 15 mg/dL (7-18); CALCIUM 7.7 MG/DL (8.5-10.1); CARBON DIOXIDE 33 MMOL/L (21-32); CHLORIDE 99 MMOL/L (98-107); CREATININE 0.6 MG/DL (0.55-1.30); POTASSIUM 3.6 MMOL/L (3.5-5.1); SODIUM 137 MMOL/L (136-145)
[2017-06-18 08:00] VITALS: BP 110/61
[2017-06-18] MEDS: Heparin 5000 units/ml inj SUBQ SCH ×2 (08:24→20:35)
[2017-06-18] MEDS: Theophylline ER 100mg ORAL SCH ×2 (08:25→20:34)
[2017-06-18] MEDS: Ketorolac 30mg Inj IV PRN (11:20)
--- NOTE | 2017-06-18 11:30 | Infectious Diseases Prog Note ---
Assessment/Plan Assessment/Plan Abx: IV Vanco x1 1/ Cefepime x1 / Levaquin x1 / Zosyn 1/- Assessment: Acute hypoxic/hypercapenic resp failure- possible PNA, r/o flu -CXR: There is generalized mild interstitial prominence, and central bronchial wall thickening. There is slight blunting of left costophrenic sulcus. -influenza rapid neg x2 Fever/leukocytosis- improving, leukocytosis resolved HTN, [place], CAD, CHF, COPD, GERD, schizophrenia, SNF resident Plan: -Switch Zosyn #3/5 to Ceftriaxone for possible PNA/bacterial bronchitis pending sp cx and d/c empiric Tamiflu #2 -give Influenza vaccine prior to discharge -f/u cx -Monitor CBC/BMP, temperatures -aspiration precautions Thank you for this consultation. Will continue to follow along with you. Discussed with RN. Subjective Allergies: Coded Allergies: HALOPERIDOL (Verified Allergy, Unknown, 06/16/17) PREDNISONE (Verified Allergy, Unknown, 06/16/17) Subjective afebrile leukocytosis resolved remains on Bipap 2nd flu test neg Objective Vital Signs Last 24 Hour Vital Signs Date Time Temp Pulse Resp B/P (MAP) Pulse Ox O2 Delivery O2 Flow Rate FiO2 06/18/17 08:00 97.9 106 24 110/61 100 Bi-pap 45 06/18/17 08:00 45 06/18/17 07:49 129 06/18/17 06:50 65 21 94 Facial 45 06/18/17 05:09 69 19 97 Facial 45 06/18/17 04:00 45 06/18/17 04:00 70 06/18/17 04:00 98.1 82 18 105/60 95 Bi-pap 45 06/18/17 03:25 103 20 97 Facial 45 06/18/17 01:37 81 22 97 Facial 45 06/18/17 00:00 45 06/18/17 00:00 98.1 75 20 116/60 96 Bi-pap 45 06/18/17 00:00 86 06/17/17 22:40 80 22 96 Facial 45 06/17/17 21:16 108 20 98 Facial 45 06/17/17 20:00 45 06/17/17 20:00 98.2 114 19 107/74 92 Bi-pap 45 06/17/17 20:00 83 06/17/17 19:39 108 20 98 Facial 45 06/17/17 17:39 77 18 96 Facial 45 06/17/17 17:00 70 22 111/45 94 Bi-pap 45 06/17/17 16:00 106 06/17/17 16:00 45 06/17/17 16:00 70 20 91/36 92 Bi-pap 45 06/17/17 15:05 110 21 95 Facial 45 06/17/17 15:00 91 20 94/60 92 Bi-pap 45 06/17/17 14:00 88 20 105/36 94 Bi-pap 45 06/17/17 13:37 116 17 94 Facial 45 06/17/17 13:00 98.1 102 16 100/66 94 Bi-pap 45 06/17/17 12:00 101 20 101/40 91 Bi-pap 45 06/17/17 12:00 45 06/17/17 11:56 77 Height (Feet): 5 Height (Inches): 3.00 Weight (Pounds): 179 Objective General Appearance: Obese Lines, tubes and drains: peripheral HEENT: normocephalic, atraumatic Neck: non-tender, supple Respiratory/Chest: lungs clear, rhonchi - bilaterally Cardiovascular/Chest: normal peripheral pulses Abdomen: normal bowel sounds Extremities: normal range of motion Microbiology Date/Time Source Procedure Growth Status 06/16/17 08:00 Blood Blood Culture - Preliminary NO GROWTH AFTER 24 HOURS Resulted 06/16/17 07:55 Blood Blood Culture - Preliminary NO GROWTH AFTER 24 HOURS Resulted 06/17/17 18:30 Nasopharynx Influenza Types A,B Antigen (LANCE) - Final Complete 06/16/17 08:12 Nasal Nares Influenza Types A,B Antigen (LANCE) - Final Complete Laboratory Tests Test 06/17/17 13:00 06/18/17 04:00 White Blood Count 12.2 K/UL (4.8-10.8) H 10.3 K/UL (4.8-10.8) Red Blood Count 3.74 M/UL (4.20-5.40) L 3.92 M/UL (4.20-5.40) L Hemoglobin 12.2 G/DL (12.0-16.0) 13.0 G/DL (12.0-16.0) Hematocrit 36.0 % (37.0-47.0) L 38.1 % (37.0-47.0) Mean Corpuscular Volume 96 FL (80-99) 97 FL (80-99) Mean Corpuscular Hemoglobin 32.7 PG (27.0-31.0) H 33.2 PG (27.0-31.0) H Mean Corpuscular Hemoglobin Concent 33.9 G/DL (32.0-36.0) 34.2 G/DL (32.0-36.0) Red Cell Distribution Width 11.8 % (11.6-14.8) 12.5 % (11.6-14.8) Platelet Count 214 K/UL (150-450) 192 K/UL (150-450) Mean Platelet Volume 5.9 FL (6.5-10.1) L 6.5 FL (6.5-10.1) Neutrophils (%) (Auto) % (45.0-75.0) 80.3 % (45.0-75.0) H Lymphocytes (%) (Auto) % (20.0-45.0) 10.5 % (20.0-45.0) L Monocytes (%) (Auto) % (1.0-10.0) 8.5 % (1.0-10.0) Eosinophils (%) (Auto) % (0.0-3.0) 0.0 % (0.0-3.0) Basophils (%) (Auto) % (0.0-2.0) 0.7 % (0.0-2.0) Differential Total Cells Counted 100 Neutrophils % (Manual) 87 % (45-75) H Lymphocytes % (Manual) 8 % (20-45) L Monocytes % (Manual) 5 % (1-10) Eosinophils % (Manual) 0 % (0-3) Basophils % (Manual) 0 % (0-2) Band Neutrophils 0 % (0-8) Platelet Estimate Adequate Platelet Morphology Normal Red Blood Cell Morphology Normal Sodium Level 138 MMOL/L (136-145) 137 MMOL/L (136-145) Potassium Level 3.4 MMOL/L (3.5-5.1) L 3.6 MMOL/L (3.5-5.1) Chloride Level 97 MMOL/L (98-107) L 99 MMOL/L (98-107) Carbon Dioxide Level 36 MMOL/L (21-32) H 33 MMOL/L (21-32) H Anion Gap 5 mmol/L (5-15) 6 mmol/L (5-15) Blood Urea Nitrogen 11 mg/dL (7-18) 15 mg/dL (7-18) Creatinine 0.5 MG/DL (0.55-1.30) L 0.6 MG/DL (0.55-1.30) Estimat Glomerular Filtration Rate mL/min (>60) mL/min (>60) Glucose Level 93 MG/DL (74-106) 72 MG/DL (74-106) L Calcium Level 7.7 MG/DL (8.5-10.1) L 7.7 MG/DL (8.5-10.1) L Total Bilirubin 0.6 MG/DL (0.2-1.0) 0.5 MG/DL (0.2-1.0) Aspartate Amino Transf (AST/SGOT) 7 U/L (15-37) L 12 U/L (15-37) L Alanine Aminotransferase (ALT/SGPT) 30 U/L (12-78) 20 U/L (12-78) Alkaline Phosphatase 75 U/L (46-116) 74 U/L (46-116) Total Protein 6.2 G/DL (6.4-8.2) L 6.4 G/DL (6.4-8.2) Albumin 2.0 G/DL (3.4-5.0) L 2.0 G/DL (3.4-5.0) L Globulin 4.2 g/dL 4.4 g/dL Albumin/Globulin Ratio 0.5 (1.0-2.7) L 0.5 (1.0-2.7) L Pro-B-Type Natriuretic Peptide 3109 pg/mL (0-125) H Current Medications Medications (Trade) Dose Ordered Sig/Marleni Route PRN Reason Start Time Stop Time Status Last Admin Dose Admin Albuterol/ Ipratropium (Albuterol/ Ipratropium) 3 ml Q4H PRN HHN dyspnea 06/16/17 13:00 06/21/17 12:59 Dextrose (Dextrose 50%) STAT PRN IV Hypoglycemia 06/16/17 13:00 07/16/17 12:59 Heparin Sodium (Porcine) (Heparin 5000 units/ml) 5,000 units EVERY 12 HOURS SUBQ 06/16/17 21:00 07/16/17 20:59 06/18/17 08:24 Ketorolac Tromethamine (Toradol 30mg) 30 mg Q8H PRN IV Moderate Pain (Pain Scale 4-6) 06/16/17 13:00 06/21/17 12:59 06/17/17 18:40 Lorazepam (Ativan 2mg/ml 1ml) 0.5 mg Q4H PRN IV For Anxiety 06/16/17 13:00 06/23/17 12:59 Morphine Sulfate (Morphine Sulfate) 2 mg Q4H PRN IVP Severe Pain (Pain Scale 7-10) 06/16/17 13:00 06/23/17 12:59 Nitroglycerin (Ntg) 0.4 mg Q5M X 3 DOSES PRN SL Prn Chest Pain 06/16/17 13:00 07/16/17 12:59 Ondansetron HCl (Zofran) 4 mg Q6H PRN IVP Nausea & Vomiting 06/16/17 13:00 07/16/17 12:59 06/17/17 22:46 Oseltamivir Phosphate (Tamiflu) 30 mg TWICE A DAY ORAL 06/17/17 21:00 06/22/17 20:59 06/18/17 08:25 Piperacillin Sod/ Tazobactam Sod 3.375 gm/Sodium Chloride 110 ml @ 220 mls/hr EVERY 8 HOURS IVPB 06/16/17 14:00 06/23/17 13:59 06/18/17 05:15 Pneumococcal Polyvalent Vaccine (Pneumovax) 0.5 ml ONCE ONCE IM 06/17/17 09:00 06/17/17 09:01 UNV Promethazine HCl/ Codeine (Phenergan with Codeine) 5 ml Q6H PRN ORAL cough 06/16/17 13:00 07/16/17 12:59 Temazepam (Restoril) 15 mg HSPRN PRN ORAL Insomnia 06/16/17 21:00 06/23/17 20:59 Theophylline (Puma-Dur) 100 mg EVERY 12 HOURS ORAL 06/16/17 21:00 07/16/17 20:59 06/18/17 08:25 Ange Grant M.D. Jun 18, 2017 11:30
--- NOTE | 2017-06-18 11:45 | Diagnostic Imaging Report ---
Indication: Dyspnea Technique: One view of the chest Comparison: 06/16/2017 Findings: There is hazy airspace opacity throughout the left lung. Generalized mild chronic appearing interstitial prominence is seen throughout the right lung, appearing similar to prior study. The heart size is difficult to assess, probably borderline enlarged. Left arm surgical hardware is noted. Impression: Diffuse hazy airspace disease throughout the left lung. Note that this may in part be an artifact overlying soft tissue, however. Correlation with clinical findings is recommended
[2017-06-18 12:00] VITALS: BP 140/73
--- NOTE | 2017-06-18 13:17 | Pulmonology Progress Note ---
Assessment/Plan Problems: (1) Respiratory distress (2) CHF exacerbation (3) Atrial fibrillation with RVR (4) COPD exacerbation (5) Fever (6) MELVIN (obstructive sleep apnea) Assessment/Plan cxr reviewed US of chest afebrile doing better continue abx check cxr and bnp f/u cardio recommendations Subjective ROS Limited/Unobtainable: No Constitutional: Reports: no symptoms HEENT: Repors: no symptoms Respiratory: Reports: no symptoms Cardiovascular: Reports: no symptoms Gastrointestinal/Abdominal: Reports: no symptoms Allergies: Coded Allergies: HALOPERIDOL (Verified Allergy, Unknown, 06/16/17) PREDNISONE (Verified Allergy, Unknown, 06/16/17) Objective Last 24 Hour Vital Signs Date Time Temp Pulse Resp B/P (MAP) Pulse Ox O2 Delivery O2 Flow Rate FiO2 06/18/17 12:00 45 06/18/17 12:00 98.1 99 16 140/73 97 Bi-pap 45 06/18/17 08:00 97.9 106 24 110/61 100 Bi-pap 45 06/18/17 08:00 45 06/18/17 07:49 129 06/18/17 06:50 65 21 94 Facial 45 06/18/17 05:09 69 19 97 Facial 45 06/18/17 04:00 45 06/18/17 04:00 70 06/18/17 04:00 98.1 82 18 105/60 95 Bi-pap 45 06/18/17 03:25 103 20 97 Facial 45 06/18/17 01:37 81 22 97 Facial 45 06/18/17 00:00 45 06/18/17 00:00 98.1 75 20 116/60 96 Bi-pap 45 06/18/17 00:00 86 06/17/17 22:40 80 22 96 Facial 45 06/17/17 21:16 108 20 98 Facial 45 06/17/17 20:00 45 06/17/17 20:00 98.2 114 19 107/74 92 Bi-pap 45 06/17/17 20:00 83 06/17/17 19:39 108 20 98 Facial 45 06/17/17 17:39 77 18 96 Facial 45 06/17/17 17:00 70 22 111/45 94 Bi-pap 45 06/17/17 16:00 106 06/17/17 16:00 45 06/17/17 16:00 70 20 91/36 92 Bi-pap 45 06/17/17 15:05 110 21 95 Facial 45 06/17/17 15:00 91 20 94/60 92 Bi-pap 45 06/17/17 14:00 88 20 105/36 94 Bi-pap 45 06/17/17 13:37 116 17 94 Facial 45 Intake and Output 06/17/17 06/18/17 19:00 07:00 Intake Total 222.0 ml 440 ml Output Total 1600 ml 300 ml Balance -1378.0 ml 140 ml Intake IV Total 222.0 ml 440 ml Output Urine Total 1600 ml 300 ml Objective General Appearance: Obese Lines, tubes and drains: peripheral HEENT: normocephalic, atraumatic Neck: non-tender, supple Respiratory/Chest: lungs clear, rhonchi - bilaterally Cardiovascular/Chest: normal peripheral pulses Abdomen: normal bowel sounds Genitourinary/Rectal: normal genital exam, normal prostate exam Extremities: normal range of motion HEENT: normocephalic Respiratory/Chest: lungs clear Cardiovascular: normal peripheral pulses, normal rate Abdomen: normal bowel sounds, soft, non tender Genitourinary: normal external genitalia Extremities: no clubbing Skin: no rash Microbiology Date/Time Source Procedure Growth Status 06/16/17 08:00 Blood Blood Culture - Preliminary NO GROWTH AFTER 24 HOURS Resulted 06/16/17 07:55 Blood Blood Culture - Preliminary NO GROWTH AFTER 24 HOURS Resulted 06/17/17 18:30 Nasopharynx Influenza Types A,B Antigen (LANCE) - Final Complete 06/16/17 08:12 Nasal Nares Influenza Types A,B Antigen (LANCE) - Final Complete Laboratory Tests 06/18/17 04:00: White Blood Count 10.3, Red Blood Count 3.92L, Hemoglobin 13.0, Hematocrit 38.1 , Mean Corpuscular Volume 97, Mean Corpuscular Hemoglobin 33.2H, Mean Corpuscular Hemoglobin Concent 34.2, Red Cell Distribution Width 12.5, Platelet Count 192, Mean Platelet Volume 6.5, Neutrophils (%) (Auto) 80.3H, Lymphocytes ( %) (Auto) 10.5L, Monocytes (%) (Auto) 8.5, Eosinophils (%) (Auto) 0.0, Basophils (%) (Auto) 0.7, Sodium Level 137, Potassium Level 3.6, Chloride Level 99, Carbon Dioxide Level 33H, Anion Gap 6, Blood Urea Nitrogen 15, Creatinine 0.6, Estimat Glomerular Filtration Rate , Glucose Level 72L, Calcium Level 7.7L , Total Bilirubin 0.5, Aspartate Amino Transf (AST/SGOT) 12L, Alanine Aminotransferase (ALT/SGPT) 20, Alkaline Phosphatase 74, Pro-B-Type Natriuretic Peptide 3109H, Total Protein 6.4, Albumin 2.0L, Globulin 4.4, Albumin/Globulin Ratio 0.5L Current Medications Medications (Trade) Dose Ordered Sig/Marleni Route PRN Reason Start Time Stop Time Status Last Admin Dose Admin Albuterol/ Ipratropium (Albuterol/ Ipratropium) 3 ml Q4H PRN HHN dyspnea 06/16/17 13:00 06/21/17 12:59 Ceftriaxone Sodium 1 gm/ Dextrose 55 ml @ 110 mls/hr Q24H IVPB 06/18/17 14:00 06/25/17 23:59 Dextrose (Dextrose 50%) STAT PRN IV Hypoglycemia 06/16/17 13:00 07/16/17 12:59 Heparin Sodium (Porcine) (Heparin 5000 units/ml) 5,000 units EVERY 12 HOURS SUBQ 06/16/17 21:00 07/16/17 20:59 06/18/17 08:24 Ketorolac Tromethamine (Toradol 30mg) 30 mg Q8H PRN IV Moderate Pain (Pain Scale 4-6) 06/16/17 13:00 06/21/17 12:59 06/18/17 11:20 Lorazepam (Ativan 2mg/ml 1ml) 0.5 mg Q4H PRN IV For Anxiety 06/16/17 13:00 06/23/17 12:59 Morphine Sulfate (Morphine Sulfate) 2 mg Q4H PRN IVP Severe Pain (Pain Scale 7-10) 06/16/17 13:00 06/23/17 12:59 Nitroglycerin (Ntg) 0.4 mg Q5M X 3 DOSES PRN SL Prn Chest Pain 06/16/17 13:00 07/16/17 12:59 Ondansetron HCl (Zofran) 4 mg Q6H PRN IVP Nausea & Vomiting 06/16/17 13:00 07/16/17 12:59 06/18/17 12:28 Pneumococcal Polyvalent Vaccine (Pneumovax) 0.5 ml ONCE ONCE IM 06/17/17 09:00 06/17/17 09:01 UNV Promethazine HCl/ Codeine (Phenergan with Codeine) 5 ml Q6H PRN ORAL cough 06/16/17 13:00 07/16/17 12:59 Temazepam (Restoril) 15 mg HSPRN PRN ORAL Insomnia 06/16/17 21:00 06/23/17 20:59 Theophylline (Puma-Dur) 100 mg EVERY 12 HOURS ORAL 06/16/17 21:00 07/16/17 20:59 06/18/17 08:25 GURINDER ROY Jun 18, 2017 13:17
[2017-06-18] MEDS: Promethazine/Codeine 5ml UD ORAL PRN (13:29)
[2017-06-18] MEDS: cefTRIAXone 1 GM in D5W 55 ML IVPB SCH (14:01)
[2017-06-18 16:00] VITALS: BP 116/58
--- NOTE | 2017-06-18 18:14 | Cardiology Progress Note ---
Assessment/Plan Assessment/Plan 1. Multifocal atrial tachycardia. 2. Respiratory insufficiency. 3. 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 4. History of gastrointestinal bleeding requiring multiple transfusions with visible blood clots, status post embolization of duodenal artery. 5. History of psychiatric disorder. 6. History of systemic hypertension. 7. 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 Subjective Cardiovascular: Denies: chest pain, lightheadedness, palpitations Respiratory: Reports: shortness of breath Gastrointestinal/Abdominal: Denies: abdominal pain Genitourinary: Denies: burning Objective Last 24 Hour Vital Signs Date Time Temp Pulse Resp B/P (MAP) Pulse Ox O2 Delivery O2 Flow Rate FiO2 06/18/17 16:30 126 06/18/17 16:00 98.2 95 20 116/58 95 Bi-pap 45 06/18/17 13:04 69 19 97 Facial 45 06/18/17 12:00 45 06/18/17 12:00 98.1 99 16 140/73 97 Bi-pap 45 06/18/17 11:40 78 06/18/17 11:03 70 17 97 Facial 45 06/18/17 08:00 97.9 106 24 110/61 100 Bi-pap 45 06/18/17 08:00 45 06/18/17 07:49 129 06/18/17 06:50 65 21 94 Facial 45 06/18/17 05:09 69 19 97 Facial 45 06/18/17 04:00 45 06/18/17 04:00 70 06/18/17 04:00 98.1 82 18 105/60 95 Bi-pap 45 06/18/17 03:25 103 20 97 Facial 45 06/18/17 01:37 81 22 97 Facial 45 06/18/17 00:00 45 06/18/17 00:00 98.1 75 20 116/60 96 Bi-pap 45 06/18/17 00:00 86 06/17/17 22:40 80 22 96 Facial 45 06/17/17 21:16 108 20 98 Facial 45 06/17/17 20:00 45 06/17/17 20:00 98.2 114 19 107/74 92 Bi-pap 45 06/17/17 20:00 83 06/17/17 19:39 108 20 98 Facial 45 General Appearance: no apparent distress, alert Cardiovascular: tachycardia Respiratory/Chest: rhonchi - bilaterally, expiratory wheezing, inspiratory wheezing Abdomen: normal bowel sounds, non tender, soft Extremities: no swelling Intake and Output 06/17/17 06/18/17 19:00 07:00 Intake Total 222.0 ml 440 ml Output Total 1600 ml 300 ml Balance -1378.0 ml 140 ml Intake IV Total 222.0 ml 440 ml Output Urine Total 1600 ml 300 ml Laboratory Tests Test 06/18/17 04:00 White Blood Count 10.3 K/UL (4.8-10.8) Red Blood Count 3.92 M/UL (4.20-5.40) L Hemoglobin 13.0 G/DL (12.0-16.0) Hematocrit 38.1 % (37.0-47.0) Mean Corpuscular Volume 97 FL (80-99) Mean Corpuscular Hemoglobin 33.2 PG (27.0-31.0) H Mean Corpuscular Hemoglobin Concent 34.2 G/DL (32.0-36.0) Red Cell Distribution Width 12.5 % (11.6-14.8) Platelet Count 192 K/UL (150-450) Mean Platelet Volume 6.5 FL (6.5-10.1) Neutrophils (%) (Auto) 80.3 % (45.0-75.0) H Lymphocytes (%) (Auto) 10.5 % (20.0-45.0) L Monocytes (%) (Auto) 8.5 % (1.0-10.0) Eosinophils (%) (Auto) 0.0 % (0.0-3.0) Basophils (%) (Auto) 0.7 % (0.0-2.0) Sodium Level 137 MMOL/L (136-145) Potassium Level 3.6 MMOL/L (3.5-5.1) Chloride Level 99 MMOL/L (98-107) Carbon Dioxide Level 33 MMOL/L (21-32) H Anion Gap 6 mmol/L (5-15) Blood Urea Nitrogen 15 mg/dL (7-18) Creatinine 0.6 MG/DL (0.55-1.30) Estimat Glomerular Filtration Rate mL/min (>60) Glucose Level 72 MG/DL (74-106) L Calcium Level 7.7 MG/DL (8.5-10.1) L Total Bilirubin 0.5 MG/DL (0.2-1.0) Aspartate Amino Transf (AST/SGOT) 12 U/L (15-37) L Alanine Aminotransferase (ALT/SGPT) 20 U/L (12-78) Alkaline Phosphatase 74 U/L (46-116) Pro-B-Type Natriuretic Peptide 3109 pg/mL (0-125) H Total Protein 6.4 G/DL (6.4-8.2) Albumin 2.0 G/DL (3.4-5.0) L Globulin 4.4 g/dL Albumin/Globulin Ratio 0.5 (1.0-2.7) L Microbiology Date/Time Source Procedure Growth Status 06/16/17 08:00 Blood Blood Culture - Preliminary NO GROWTH AFTER 24 HOURS Resulted 06/16/17 07:55 Blood Blood Culture - Preliminary NO GROWTH AFTER 24 HOURS Resulted 06/18/17 09:10 Sputum Gram Stain - Final Resulted 06/18/17 09:10 Sputum Sputum Culture Pending Resulted 06/17/17 18:30 Nasopharynx Influenza Types A,B Antigen (LANCE) - Final Complete 06/16/17 08:12 Nasal Nares Influenza Types A,B Antigen (LANCE) - Final Complete TIFFANI RINCON Jun 18, 2017 18:14
[2017-06-18 20:00] VITALS: BP 118/44
[2017-06-18] MEDS: Morphine Sulfate 2mg/ml Inj IVP PRN (22:29)
[2017-06-19] VITALS: BP 127/73
[2017-06-19] MEDS: Promethazine/Codeine 5ml UD ORAL PRN ×2 (03:42→10:09)
[2017-06-19 04:00] VITALS: BP 110/79
[2017-06-19 08:00] VITALS: BP 121/62
[2017-06-19] MEDS: Theophylline ER 100mg ORAL SCH ×2 (08:20→20:01)
[2017-06-19 08:24] LABS: EOSINOPHILS % (AUTO) 0.3 % (0.0-3.0); HEMOGLOBIN 12.4 G/DL (12.0-16.0); MEAN CORPUSCULAR VOLUME 98 FL (80-99); NEUTROPHILS % (AUTO) 72.7 % (45.0-75.0); PLATELET COUNT 275 K/UL (150-450); RED CELL DISTRIBUTION WIDTH 12.2 % (11.6-14.8); WHITE BLOOD COUNT 8.5 K/UL (4.8-10.8)
[2017-06-19] MEDS: Heparin 5000 units/ml inj SUBQ SCH ×2 (08:25→20:02)
[2017-06-19 08:53] LABS: ALANINE AMINOTRANSFERASE 17 U/L (12-78); ALBUMIN/GLOBULIN RATIO 0.5 (1.0-2.7); ALKALINE PHOSPHATASE 62 U/L (46-116); ANION GAP 0 mmol/L (5-15); ASPARTATE AMINO TRANSFERASE 9 U/L (15-37); BILIRUBIN,TOTAL 0.5 MG/DL (0.2-1.0); BLOOD UREA NITROGEN 11 mg/dL (7-18); CALCIUM 7.4 MG/DL (8.5-10.1); CARBON DIOXIDE 39 MMOL/L (21-32); CHLORIDE 102 MMOL/L (98-107); CREATININE 0.6 MG/DL (0.55-1.30); POTASSIUM 3.5 MMOL/L (3.5-5.1); SODIUM 141 MMOL/L (136-145)
[2017-06-19 09:30] LABS: PHOSPHORUS 3.4 MG/DL (2.5-4.9)
[2017-06-19 12:00] VITALS: BP 123/56
[2017-06-19] MEDS: cefTRIAXone 1 GM in D5W 55 ML IVPB SCH (14:08)
--- NOTE | 2017-06-19 14:26 | Infectious Diseases Prog Note ---
Assessment/Plan Assessment/Plan Assessment: Acute hypoxic/hypercapenic resp failure- possible PNA, -CXR: There is generalized mild interstitial prominence, and central bronchial wall thickening. There is slight blunting of left costophrenic sulcus. -influenza rapid neg x2 Fever, SP leukocytosis- SP HTN [place] CAD CHF COPD GERD Schizophrenia SNF resident Plan: - cont Ceftriaxone d# 2 add Levaquin d# 1 for possible atypical PNA/bacterial bronchitis 06/18 SP Zosyn #3 and Tamiflu #2 -give Influenza vaccine prior to discharge -f/u cx -Monitor CBC/BMP, temperatures -aspiration precautions - U legionella Ag - BiPAP Subjective Allergies: Coded Allergies: HALOPERIDOL (Verified Allergy, Unknown, 06/16/17) PREDNISONE (Verified Allergy, Unknown, 06/16/17) Subjective BiPAP Objective Vital Signs Last 24 Hour Vital Signs Date Time Temp Pulse Resp B/P (MAP) Pulse Ox O2 Delivery O2 Flow Rate FiO2 06/19/17 12:42 108 28 95 Facial 45 06/19/17 11:05 69 21 97 Facial 45 06/19/17 09:30 69 23 94 Facial 45 06/19/17 08:51 121 06/19/17 08:00 97.9 84 23 121/62 93 Bi-pap 45 06/19/17 07:27 67 19 96 Facial 45 06/19/17 05:42 69 19 94 Facial 45 06/19/17 04:00 77 06/19/17 04:00 98.8 70 20 110/79 95 Bi-pap 45 06/19/17 03:55 63 19 93 Facial 45 06/19/17 00:00 116 06/19/17 00:00 98.9 102 32 127/73 94 Nasal Cannula 3.0 06/18/17 22:59 98.2 06/18/17 20:00 98.3 105 25 118/44 92 Nasal Cannula 3.0 06/18/17 20:00 119 06/18/17 16:30 126 06/18/17 16:00 98.2 95 20 116/58 95 Bi-pap 45 Height (Feet): 5 Height (Inches): 3.00 Weight (Pounds): 179 HEENT: normocephalic Respiratory/Chest: normal breath sounds Cardiovascular: regularly irregular Abdomen: soft, non tender Microbiology Date/Time Source Procedure Growth Status 06/18/17 09:10 Sputum Gram Stain - Final Resulted 06/18/17 09:10 Sputum Sputum Culture - Preliminary NO GROWTH AFTER 24 HOURS Resulted 06/17/17 18:30 Nasopharynx Influenza Types A,B Antigen (LANCE) - Final Complete Laboratory Tests Test 06/19/17 07:18 White Blood Count 8.5 K/UL (4.8-10.8) Red Blood Count 3.90 M/UL (4.20-5.40) L Hemoglobin 12.4 G/DL (12.0-16.0) Hematocrit 38.0 % (37.0-47.0) Mean Corpuscular Volume 98 FL (80-99) Mean Corpuscular Hemoglobin 31.8 PG (27.0-31.0) H Mean Corpuscular Hemoglobin Concent 32.6 G/DL (32.0-36.0) Red Cell Distribution Width 12.2 % (11.6-14.8) Platelet Count 275 K/UL (150-450) Mean Platelet Volume 5.7 FL (6.5-10.1) L Neutrophils (%) (Auto) 72.7 % (45.0-75.0) Lymphocytes (%) (Auto) 14.0 % (20.0-45.0) L Monocytes (%) (Auto) 12.0 % (1.0-10.0) H Eosinophils (%) (Auto) 0.3 % (0.0-3.0) Basophils (%) (Auto) 1.0 % (0.0-2.0) Sodium Level 141 MMOL/L (136-145) Potassium Level 3.5 MMOL/L (3.5-5.1) Chloride Level 102 MMOL/L (98-107) Carbon Dioxide Level 39 MMOL/L (21-32) H Anion Gap 0 mmol/L (5-15) L Blood Urea Nitrogen 11 mg/dL (7-18) Creatinine 0.6 MG/DL (0.55-1.30) Estimat Glomerular Filtration Rate mL/min (>60) Glucose Level 89 MG/DL (74-106) Calcium Level 7.4 MG/DL (8.5-10.1) L Phosphorus Level 3.4 MG/DL (2.5-4.9) Magnesium Level 1.8 MG/DL (1.8-2.4) Total Bilirubin 0.5 MG/DL (0.2-1.0) Aspartate Amino Transf (AST/SGOT) 9 U/L (15-37) L Alanine Aminotransferase (ALT/SGPT) 17 U/L (12-78) Alkaline Phosphatase 62 U/L (46-116) C-Reactive Protein, Quantitative 8.6 mg/dL (0.00-0.90) H Total Protein 6.1 G/DL (6.4-8.2) L Albumin 2.0 G/DL (3.4-5.0) L Globulin 4.1 g/dL Albumin/Globulin Ratio 0.5 (1.0-2.7) L Thyroid Stimulating Hormone (TSH) 2.690 uiU/mL (0.358-3.740) Current Medications Medications (Trade) Dose Ordered Sig/Marleni Route PRN Reason Start Time Stop Time Status Last Admin Dose Admin Albuterol/ Ipratropium (Albuterol/ Ipratropium) 3 ml Q4H PRN HHN dyspnea 06/16/17 13:00 06/21/17 12:59 Ceftriaxone Sodium 1 gm/ Dextrose 55 ml @ 110 mls/hr Q24H IVPB 06/18/17 14:00 06/25/17 23:59 06/19/17 14:08 Dextrose (Dextrose 50%) STAT PRN IV Hypoglycemia 06/16/17 13:00 07/16/17 12:59 Heparin Sodium (Porcine) (Heparin 5000 units/ml) 5,000 units EVERY 12 HOURS SUBQ 06/16/17 21:00 07/16/17 20:59 06/19/17 08:25 Ketorolac Tromethamine (Toradol 30mg) 30 mg Q8H PRN IV Moderate Pain (Pain Scale 4-6) 06/16/17 13:00 06/21/17 12:59 06/18/17 11:20 Lorazepam (Ativan 2mg/ml 1ml) 0.5 mg Q4H PRN IV For Anxiety 06/16/17 13:00 06/23/17 12:59 Morphine Sulfate (Morphine Sulfate) 2 mg Q4H PRN IVP Severe Pain (Pain Scale 7-10) 06/16/17 13:00 06/23/17 12:59 06/18/17 22:29 Nitroglycerin (Ntg) 0.4 mg Q5M X 3 DOSES PRN SL Prn Chest Pain 06/16/17 13:00 07/16/17 12:59 Ondansetron HCl (Zofran) 4 mg Q6H PRN IVP Nausea & Vomiting 06/16/17 13:00 07/16/17 12:59 06/18/17 20:34 Pneumococcal Polyvalent Vaccine (Pneumovax) 0.5 ml ONCE ONCE IM 06/17/17 09:00 06/17/17 09:01 UNV Promethazine HCl/ Codeine (Phenergan with Codeine) 5 ml Q6H PRN ORAL cough 06/16/17 13:00 07/16/17 12:59 06/19/17 10:09 Temazepam (Restoril) 15 mg HSPRN PRN ORAL Insomnia 06/16/17 21:00 06/23/17 20:59 Theophylline (P[place]-Dur) 100 mg EVERY 12 HOURS ORAL 06/16/17 21:00 07/16/17 20:59 06/19/17 08:20 REGINA ALVAREZ M.D. Jun 19, 2017 14:26
--- NOTE | 2017-06-19 15:42 | Cardiology Progress Note ---
Assessment/Plan Assessment/Plan 1. Multifocal atrial tachycardia. 2. Respiratory insufficiency. 3. 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 4. History of gastrointestinal bleeding requiring multiple transfusions with visible blood clots, status post embolization of duodenal artery. 5. History of psychiatric disorder. 6. History of systemic hypertension. 7. Possible sepsis trop in am tele reviewed mat noted pulm toliete bipap prn abx diuretic prn photogrammetric tech diff study bc neg so far Subjective ROS Limited/Unobtainable: Yes Subjective on bipap Objective Last 24 Hour Vital Signs Date Time Temp Pulse Resp B/P (MAP) Pulse Ox O2 Delivery O2 Flow Rate FiO2 06/19/17 15:15 129 19 96 Facial 45 06/19/17 12:42 108 28 95 Facial 45 06/19/17 12:00 81 06/19/17 12:00 97.5 67 17 123/56 92 Bi-pap 45 06/19/17 11:05 69 21 97 Facial 45 06/19/17 09:30 69 23 94 Facial 45 06/19/17 08:51 121 06/19/17 08:00 97.9 84 23 121/62 93 Bi-pap 45 06/19/17 07:27 67 19 96 Facial 45 06/19/17 05:42 69 19 94 Facial 45 06/19/17 04:00 77 06/19/17 04:00 98.8 70 20 110/79 95 Bi-pap 45 06/19/17 03:55 63 19 93 Facial 45 06/19/17 00:00 116 06/19/17 00:00 98.9 102 32 127/73 94 Nasal Cannula 3.0 06/18/17 22:59 98.2 06/18/17 20:00 98.3 105 25 118/44 92 Nasal Cannula 3.0 06/18/17 20:00 119 06/18/17 16:30 126 06/18/17 16:00 98.2 95 20 116/58 95 Bi-pap 45 General Appearance: alert Neck: supple Cardiovascular: normal rate, irregularly irregular Respiratory/Chest: decreased breath sounds Abdomen: normal bowel sounds, non tender, soft Extremities: no swelling Intake and Output 06/18/17 06/19/17 19:00 07:00 Intake Total 295 ml Output Total 400 ml 2 ml Balance -105 ml -2 ml Intake Oral 240 ml IV Total 55 ml Output Urine Total 400 ml 2 ml Laboratory Tests Test 06/19/17 07:18 White Blood Count 8.5 K/UL (4.8-10.8) Red Blood Count 3.90 M/UL (4.20-5.40) L Hemoglobin 12.4 G/DL (12.0-16.0) Hematocrit 38.0 % (37.0-47.0) Mean Corpuscular Volume 98 FL (80-99) Mean Corpuscular Hemoglobin 31.8 PG (27.0-31.0) H Mean Corpuscular Hemoglobin Concent 32.6 G/DL (32.0-36.0) Red Cell Distribution Width 12.2 % (11.6-14.8) Platelet Count 275 K/UL (150-450) Mean Platelet Volume 5.7 FL (6.5-10.1) L Neutrophils (%) (Auto) 72.7 % (45.0-75.0) Lymphocytes (%) (Auto) 14.0 % (20.0-45.0) L Monocytes (%) (Auto) 12.0 % (1.0-10.0) H Eosinophils (%) (Auto) 0.3 % (0.0-3.0) Basophils (%) (Auto) 1.0 % (0.0-2.0) Sodium Level 141 MMOL/L (136-145) Potassium Level 3.5 MMOL/L (3.5-5.1) Chloride Level 102 MMOL/L (98-107) Carbon Dioxide Level 39 MMOL/L (21-32) H Anion Gap 0 mmol/L (5-15) L Blood Urea Nitrogen 11 mg/dL (7-18) Creatinine 0.6 MG/DL (0.55-1.30) Estimat Glomerular Filtration Rate mL/min (>60) Glucose Level 89 MG/DL (74-106) Calcium Level 7.4 MG/DL (8.5-10.1) L Phosphorus Level 3.4 MG/DL (2.5-4.9) Magnesium Level 1.8 MG/DL (1.8-2.4) Total Bilirubin 0.5 MG/DL (0.2-1.0) Aspartate Amino Transf (AST/SGOT) 9 U/L (15-37) L Alanine Aminotransferase (ALT/SGPT) 17 U/L (12-78) Alkaline Phosphatase 62 U/L (46-116) C-Reactive Protein, Quantitative 8.6 mg/dL (0.00-0.90) H Total Protein 6.1 G/DL (6.4-8.2) L Albumin 2.0 G/DL (3.4-5.0) L Globulin 4.1 g/dL Albumin/Globulin Ratio 0.5 (1.0-2.7) L Thyroid Stimulating Hormone (TSH) 2.690 uiU/mL (0.358-3.740) Microbiology Date/Time Source Procedure Growth Status 06/18/17 09:10 Sputum Gram Stain - Final Resulted 06/18/17 09:10 Sputum Sputum Culture - Preliminary NO GROWTH AFTER 24 HOURS Resulted 06/17/17 18:30 Nasopharynx Influenza Types A,B Antigen (LANCE) - Final Complete TIFFANI RINCON Jun 19, 2017 15:42
[2017-06-19] MEDS ORDERED: Flu Vaccine Quadrivalent 0.5ml IM ONE (15:45)
[2017-06-19 16:00] VITALS: BP 113/63
--- NOTE | 2017-06-19 16:35 | Pulmonology Progress Note ---
Assessment/Plan Assessment/Plan ASSESSMENT Acute hypoxemic hypercapnic RF requiring BiPAP CHF exacerbation Possible sepsis possible PNA AF with RVR- was ruled out Multifocal AT COPD exacerbation HTN Hx of systolic and diastolic HF with EF 45-50% Hx of GI bleeding with embolization of duodenal artery MELVIN PLAN OF CARE ALBERTO BIPAP unable to wean so far O2 titrate to keep sat above 90% ABG in am Fup with CXR Pulmonary toilet Cardio follows fup troponin Spot diuresis ECHO technically difficult due to position of patient Initially started on Cardizem gtt due to A fib wih RVR after rhythm analyzed by cardio- no AFib noted, but multifocal AT off Cardizem gtt Abx ID follows influenza x 2 negative, bl cx negative, sputum,cx pending Aspiration precautions DVT prophylaxis US chest to eval for pleural effusion if enough fluid to tap case discussed and evaluated by supervising physician Subjective Allergies: Coded Allergies: HALOPERIDOL (Verified Allergy, Unknown, 06/16/17) PREDNISONE (Verified Allergy, Unknown, 06/16/17) Subjective remains on BiPAP tele with MAT Objective Last 24 Hour Vital Signs Date Time Temp Pulse Resp B/P (MAP) Pulse Ox O2 Delivery O2 Flow Rate FiO2 06/19/17 15:15 129 19 96 Facial 45 06/19/17 12:42 108 28 95 Facial 45 06/19/17 12:00 81 06/19/17 12:00 97.5 67 17 123/56 92 Bi-pap 45 06/19/17 11:05 69 21 97 Facial 45 06/19/17 09:30 69 23 94 Facial 45 06/19/17 08:51 121 06/19/17 08:00 97.9 84 23 121/62 93 Bi-pap 45 06/19/17 07:27 67 19 96 Facial 45 06/19/17 05:42 69 19 94 Facial 45 06/19/17 04:00 77 06/19/17 04:00 98.8 70 20 110/79 95 Bi-pap 45 06/19/17 03:55 63 19 93 Facial 45 06/19/17 00:00 116 06/19/17 00:00 98.9 102 32 127/73 94 Nasal Cannula 3.0 06/18/17 22:59 98.2 06/18/17 20:00 98.3 105 25 118/44 92 Nasal Cannula 3.0 06/18/17 20:00 119 Intake and Output 06/18/17 06/19/17 19:00 07:00 Intake Total 295 ml Output Total 400 ml 2 ml Balance -105 ml -2 ml Intake Oral 240 ml IV Total 55 ml Output Urine Total 400 ml 2 ml General Appearance: other - obese female on BiPAP HEENT: normocephalic, atraumatic, other - BiPAP mask ion 15/5 FiO2 45% Cardiovascular: tachycardia - MAT Abdomen: normal bowel sounds, soft, non tender - obese Neurologic/Psychiatric: abnormal gait, other - awake, poorly responsive Musculoskeletal: atrophy - BLE Microbiology Date/Time Source Procedure Growth Status 06/18/17 09:10 Sputum Gram Stain - Final Resulted 06/18/17 09:10 Sputum Sputum Culture - Preliminary NO GROWTH AFTER 24 HOURS Resulted 06/17/17 18:30 Nasopharynx Influenza Types A,B Antigen (LANCE) - Final Complete Laboratory Tests 06/19/17 07:18: White Blood Count 8.5, Red Blood Count 3.90L, Hemoglobin 12.4, Hematocrit 38.0, Mean Corpuscular Volume 98, Mean Corpuscular Hemoglobin 31.8H, Mean Corpuscular Hemoglobin Concent 32.6, Red Cell Distribution Width 12.2, Platelet Count 275, Mean Platelet Volume 5.7L, Neutrophils (%) (Auto) 72.7, Lymphocytes (%) (Auto) 14.0L, Monocytes (%) (Auto) 12.0H, Eosinophils (%) (Auto) 0.3, Basophils (%) ( Auto) 1.0, Sodium Level 141, Potassium Level 3.5, Chloride Level 102, Carbon Dioxide Level 39H, Anion Gap 0L, Blood Urea Nitrogen 11, Creatinine 0.6, Estimat Glomerular Filtration Rate , Glucose Level 89, Calcium Level 7.4L, Phosphorus Level 3.4, Magnesium Level 1.8, Total Bilirubin 0.5, Aspartate Amino Transf (AST/SGOT) 9L, Alanine Aminotransferase (ALT/SGPT) 17, Alkaline Phosphatase 62, C-Reactive Protein, Quantitative 8.6H, Total Protein 6.1L, Albumin 2.0L, Globulin 4.1, Albumin/Globulin Ratio 0.5L, Thyroid Stimulating Hormone (TSH) 2.690 Current Medications Medications (Trade) Dose Ordered Sig/Marleni Route PRN Reason Start Time Stop Time Status Last Admin Dose Admin Albuterol/ Ipratropium (Albuterol/ Ipratropium) 3 ml Q4H PRN HHN dyspnea 06/16/17 13:00 06/21/17 12:59 Ceftriaxone Sodium 1 gm/ Dextrose 55 ml @ 110 mls/hr Q24H IVPB 06/18/17 14:00 06/25/17 23:59 06/19/17 14:08 Dextrose (Dextrose 50%) STAT PRN IV Hypoglycemia 06/16/17 13:00 07/16/17 12:59 Heparin Sodium (Porcine) (Heparin 5000 units/ml) 5,000 units EVERY 12 HOURS SUBQ 06/16/17 21:00 07/16/17 20:59 06/19/17 08:25 Influenza Virus Vaccine Quadrival (Flu Vaccine Quadrivalent) 0.5 ml ONCE ONCE IM 06/19/17 15:45 06/19/17 15:46 UNV Ketorolac Tromethamine (Toradol 30mg) 30 mg Q8H PRN IV Moderate Pain (Pain Scale 4-6) 06/16/17 13:00 06/21/17 12:59 06/18/17 11:20 Levofloxacin 150 ml @ 100 mls/hr Q24H IVPB 06/19/17 16:00 06/26/17 15:59 06/19/17 16:12 Lorazepam (Ativan 2mg/ml 1ml) 0.5 mg Q4H PRN IV For Anxiety 06/16/17 13:00 06/23/17 12:59 Morphine Sulfate (Morphine Sulfate) 2 mg Q4H PRN IVP Severe Pain (Pain Scale 7-10) 06/16/17 13:00 06/23/17 12:59 06/18/17 22:29 Nitroglycerin (Ntg) 0.4 mg Q5M X 3 DOSES PRN SL Prn Chest Pain 06/16/17 13:00 07/16/17 12:59 Ondansetron HCl (Zofran) 4 mg Q6H PRN IVP Nausea & Vomiting 06/16/17 13:00 07/16/17 12:59 06/18/17 20:34 Pneumococcal Polyvalent Vaccine (Pneumovax) 0.5 ml ONCE ONCE IM 06/17/17 09:00 06/17/17 09:01 UNV Promethazine HCl/ Codeine (Phenergan with Codeine) 5 ml Q6H PRN ORAL cough 06/16/17 13:00 07/16/17 12:59 06/19/17 10:09 Temazepam (Restoril) 15 mg HSPRN PRN ORAL Insomnia 06/16/17 21:00 06/23/17 20:59 Theophylline ([place]) 100 mg EVERY 12 HOURS ORAL 06/16/17 21:00 07/16/17 20:59 06/19/17 08:20 Pernell ([facility])Sharon NP Jun 19, 2017 16:35
[2017-06-19] MEDS ORDERED: Albuterol/Ipratropium 3ml neb HHN PRN (17:00)
[2017-06-19] MEDS: Morphine Sulfate 2mg/ml Inj IVP PRN ×2 (17:36→22:48)
[2017-06-19 20:00] VITALS: BP 132/89
[2017-06-20] VITALS: BP 132/65
[2017-06-20] MEDS: Promethazine/Codeine 5ml UD ORAL PRN ×2 (01:51→19:59)
[2017-06-20 04:00] VITALS: BP 137/82
[2017-06-20 08:00] VITALS: BP 113/72
[2017-06-20] MEDS: Theophylline ER 100mg ORAL SCH (09:44)
[2017-06-20] MEDS: Heparin 5000 units/ml inj SUBQ SCH ×2 (09:45→20:01)
[2017-06-20 09:51] LABS: BASOPHILS % (AUTO) 1.4 % (0.0-2.0); EOSINOPHILS % (AUTO) 0.9 % (0.0-3.0); HEMATOCRIT 43.1 % (37.0-47.0); HEMOGLOBIN 13.9 G/DL (12.0-16.0); LYMPHOCYTES % (AUTO) 15.4 % (20.0-45.0); MEAN CORPUSCULAR VOLUME 98 FL (80-99); MONOCYTES % (AUTO) 9.5 % (1.0-10.0); NEUTROPHILS % (AUTO) 72.7 % (45.0-75.0); PLATELET COUNT 292 K/UL (150-450); RED CELL DISTRIBUTION WIDTH 12.4 % (11.6-14.8); WHITE BLOOD COUNT 9.6 K/UL (4.8-10.8)
[2017-06-20 10:07] LABS: ANION GAP 0 mmol/L (5-15); BLOOD UREA NITROGEN 7 mg/dL (7-18); CALCIUM 7.9 MG/DL (8.5-10.1); CARBON DIOXIDE 39 MMOL/L (21-32); CHLORIDE 101 MMOL/L (98-107); CREATININE 0.6 MG/DL (0.55-1.30); POTASSIUM 3.5 MMOL/L (3.5-5.1); SODIUM 140 MMOL/L (136-145)
[2017-06-20 12:00] VITALS: BP 130/65
--- NOTE | 2017-06-20 12:28 | Pulmonology Progress Note ---
Assessment/Plan Assessment/Plan ASSESSMENT Acute hypoxemic hypercapnic RF requiring BiPAP CHF exacerbation Possible sepsis possible PNA AF with RVR- was ruled out Multifocal AT COPD exacerbation HTN Hx of systolic and diastolic HF with EF 45-50% Hx of GI bleeding with embolization of duodenal artery MELVIN PLAN OF CARE ALBERTO BIPAP unable to wean so far O2 titrate to keep sat above 90% ABG in am Fup with CXR Pulmonary toilet Cardio follows fup troponin Spot diuresis ECHO technically difficult due to position of patient Initially started on Cardizem gtt due to A fib wih RVR after rhythm analyzed by cardio- no AFib noted, but multifocal AT off Cardizem gtt will stop Theophylline due to persistent tachycardia give additional KCL today Abx ID follows influenza x 2 negative, bl cx negative, sputum cx negative Aspiration precautions DVT prophylaxis US chest to eval for pleural effusion if enough fluid to tap case discussed and evaluated by supervising physician Subjective Allergies: Coded Allergies: HALOPERIDOL (Verified Allergy, Unknown, 06/16/17) PREDNISONE (Verified Allergy, Unknown, 06/16/17) Subjective remains on BiPAP tele with MAT, HR up to 160 Objective Last 24 Hour Vital Signs Date Time Temp Pulse Resp B/P (MAP) Pulse Ox O2 Delivery O2 Flow Rate FiO2 06/20/17 11:05 127 20 96 Facial 45 06/20/17 08:00 98.4 115 22 113/72 93 Bi-pap 45 06/20/17 08:00 138 06/20/17 07:31 101 21 95 Facial 45 06/20/17 04:00 137 06/20/17 04:00 98.4 85 24 137/82 94 Nasal Cannula 4.0 06/20/17 01:26 109 22 Nasal Cannula 3.0 32 06/20/17 00:00 98.4 103 24 132/65 92 Nasal Cannula 3.0 06/20/17 00:00 150 06/19/17 23:18 98.4 06/19/17 20:00 128 06/19/17 20:00 98.7 99 24 132/89 94 Nasal Cannula 3.0 06/19/17 16:00 64 06/19/17 16:00 97.7 94 21 113/63 94 Bi-pap 45 06/19/17 15:15 129 19 96 Facial 45 06/19/17 12:42 108 28 95 Facial 45 Intake and Output 06/19/17 06/20/17 19:00 07:00 Intake Total 480 ml Output Total 400 ml Balance 480 ml -400 ml Intake Oral 480 ml Output Urine Total 400 ml # Voids 3 Objective General Appearance: obese female on BiPAP 26/10/FiO2 45% HEENT: normocephalic, atraumatic, BiPAP mask on Cardiovascular: tachycardia - MAT Abdomen: normal bowel sounds, soft, non tender - obese Neurologic/Psychiatric: abnormal gait, other - awake, poorly responsive Musculoskeletal: atrophy - BLE Microbiology Date/Time Source Procedure Growth Status 06/18/17 09:10 Sputum Gram Stain - Final Complete 06/18/17 09:10 Sputum Sputum Culture - Final NORMAL UPPER RESPIRATORY KEELY PRESENT Complete 06/17/17 18:30 Nasopharynx Influenza Types A,B Antigen (LANCE) - Final Complete Laboratory Tests 06/20/17 04:00: Sodium Level 140, Potassium Level 3.5, Chloride Level 101, Carbon Dioxide Level 39H, Anion Gap 0L, Blood Urea Nitrogen 7, Creatinine 0.6, Estimat Glomerular Filtration Rate , Glucose Level 121H, Calcium Level 7.9L, Pro-B-Type Natriuretic Peptide 2463H 06/20/17 06:44: Arterial Blood pH 7.390, Arterial Blood Partial Pressure CO2 70.7*H, Arterial Blood Partial Pressure O2 64.2L, Arterial Blood HCO3 42.3H, Arterial Blood Oxygen Saturation 92.6, Arterial Blood Base Excess 14, Nathan Test Positive 06/20/17 08:30: White Blood Count 9.6, Red Blood Count 4.40, Hemoglobin 13.9, Hematocrit 43.1, Mean Corpuscular Volume 98, Mean Corpuscular Hemoglobin 31.5H, Mean Corpuscular Hemoglobin Concent 32.2, Red Cell Distribution Width 12.4, Platelet Count 292, Mean Platelet Volume 5.9L, Neutrophils (%) (Auto) 72.7, Lymphocytes (%) (Auto) 15.4L, Monocytes (%) (Auto) 9.5, Eosinophils (%) (Auto) 0.9, Basophils (%) (Auto ) 1.4 Current Medications Medications (Trade) Dose Ordered Sig/Marleni Route PRN Reason Start Time Stop Time Status Last Admin Dose Admin Albuterol/ Ipratropium (Albuterol/ Ipratropium) 3 ml Q4H PRN HHN dyspnea 06/19/17 17:00 06/24/17 16:59 Ceftriaxone Sodium 1 gm/ Dextrose 55 ml @ 110 mls/hr Q24H IVPB 06/18/17 14:00 06/25/17 23:59 06/19/17 14:08 Dextrose (Dextrose 50%) STAT PRN IV Hypoglycemia 06/16/17 13:00 07/16/17 12:59 Heparin Sodium (Porcine) (Heparin 5000 units/ml) 5,000 units EVERY 12 HOURS SUBQ 06/16/17 21:00 07/16/17 20:59 06/20/17 09:45 Influenza Virus Vaccine Quadrival (Flu Vaccine Quadrivalent) 0.5 ml ONCE ONCE IM 06/19/17 15:45 06/19/17 15:46 UNV Ketorolac Tromethamine (Toradol 30mg) 30 mg Q8H PRN IV Moderate Pain (Pain Scale 4-6) 06/16/17 13:00 06/21/17 12:59 06/18/17 11:20 Levofloxacin 150 ml @ 100 mls/hr Q24H IVPB 06/19/17 16:00 06/26/17 15:59 06/19/17 16:12 Lorazepam (Ativan 2mg/ml 1ml) 0.5 mg Q4H PRN IV For Anxiety 06/16/17 13:00 06/23/17 12:59 Morphine Sulfate (Morphine Sulfate) 2 mg Q4H PRN IVP Severe Pain (Pain Scale 7-10) 06/16/17 13:00 06/23/17 12:59 06/19/17 22:48 Nitroglycerin (Ntg) 0.4 mg Q5M X 3 DOSES PRN SL Prn Chest Pain 06/16/17 13:00 07/16/17 12:59 Ondansetron HCl (Zofran) 4 mg Q6H PRN IVP Nausea & Vomiting 06/16/17 13:00 07/16/17 12:59 06/19/17 20:01 Pneumococcal Polyvalent Vaccine (Pneumovax) 0.5 ml ONCE ONCE IM 06/17/17 09:00 06/17/17 09:01 UNV Promethazine HCl/ Codeine (Phenergan with Codeine) 5 ml Q6H PRN ORAL cough 06/16/17 13:00 07/16/17 12:59 06/20/17 01:51 Temazepam (Restoril) 15 mg HSPRN PRN ORAL Insomnia 06/16/17 21:00 06/23/17 20:59 Pernell ([facility])Sharon NP Jun 20, 2017 12:28
[2017-06-20] MEDS: cefTRIAXone 1 GM in D5W 55 ML IVPB SCH (13:01)
--- NOTE | 2017-06-20 14:19 | Cardiology Progress Note ---
Assessment/Plan Assessment/Plan 1. Multifocal atrial tachycardia. 2. Respiratory insufficiency. 3. 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 4. History of gastrointestinal bleeding requiring multiple transfusions with visible blood clots, status post embolization of duodenal artery. 5. History of psychiatric disorder. 6. History of systemic hypertension. 7. Possible sepsis tele reviewed mat noted intermittently pulm toliete bipap prn abx diuretic today certified technician diff study bc neg so far Subjective Cardiovascular: Denies: chest pain, lightheadedness Respiratory: Reports: shortness of breath Gastrointestinal/Abdominal: Denies: abdominal pain Genitourinary: Denies: burning Subjective off bipap Objective Last 24 Hour Vital Signs Date Time Temp Pulse Resp B/P (MAP) Pulse Ox O2 Delivery O2 Flow Rate FiO2 06/20/17 12:00 98.0 106 23 130/65 97 Bi-pap 45 06/20/17 11:05 127 20 96 Facial 45 06/20/17 08:00 98.4 115 22 113/72 93 Bi-pap 45 06/20/17 08:00 138 06/20/17 07:31 101 21 95 Facial 45 06/20/17 04:00 137 06/20/17 04:00 98.4 85 24 137/82 94 Nasal Cannula 4.0 06/20/17 01:26 109 22 Nasal Cannula 3.0 32 06/20/17 00:00 98.4 103 24 132/65 92 Nasal Cannula 3.0 06/20/17 00:00 150 06/19/17 23:18 98.4 06/19/17 20:00 128 06/19/17 20:00 98.7 99 24 132/89 94 Nasal Cannula 3.0 06/19/17 16:00 64 06/19/17 16:00 97.7 94 21 113/63 94 Bi-pap 45 06/19/17 15:15 129 19 96 Facial 45 General Appearance: alert, obese Cardiovascular: normal rate, tachycardia, irregularly irregular Respiratory/Chest: rhonchi - bilaterally, expiratory wheezing Abdomen: normal bowel sounds, soft Extremities: no swelling Intake and Output 06/19/17 06/20/17 19:00 07:00 Intake Total 480 ml Output Total 400 ml Balance 480 ml -400 ml Intake Oral 480 ml Output Urine Total 400 ml # Voids 3 Laboratory Tests Test 06/20/17 04:00 1/7/18 06:44 06/20/17 08:30 Sodium Level 140 MMOL/L (136-145) Potassium Level 3.5 MMOL/L (3.5-5.1) Chloride Level 101 MMOL/L (98-107) Carbon Dioxide Level 39 MMOL/L (21-32) H Anion Gap 0 mmol/L (5-15) L Blood Urea Nitrogen 7 mg/dL (7-18) Creatinine 0.6 MG/DL (0.55-1.30) Estimat Glomerular Filtration Rate mL/min (>60) Glucose Level 121 MG/DL (74-106) H Calcium Level 7.9 MG/DL (8.5-10.1) L Pro-B-Type Natriuretic Peptide 2463 pg/mL (0-125) H Arterial Blood pH 7.390 (7.350-7.450) Arterial Blood Partial Pressure CO2 70.7 mmHg (35.0-45.0) *H Arterial Blood Partial Pressure O2 64.2 mmHg (75.0-100.0) L Arterial Blood HCO3 42.3 mmol/L (22.0-26.0) H Arterial Blood Oxygen Saturation 92.6 % (92.0-98.0) Arterial Blood Base Excess 14 Nathan Test Positive White Blood Count 9.6 K/UL (4.8-10.8) Red Blood Count 4.40 M/UL (4.20-5.40) Hemoglobin 13.9 G/DL (12.0-16.0) Hematocrit 43.1 % (37.0-47.0) Mean Corpuscular Volume 98 FL (80-99) Mean Corpuscular Hemoglobin 31.5 PG (27.0-31.0) H Mean Corpuscular Hemoglobin Concent 32.2 G/DL (32.0-36.0) Red Cell Distribution Width 12.4 % (11.6-14.8) Platelet Count 292 K/UL (150-450) Mean Platelet Volume 5.9 FL (6.5-10.1) L Neutrophils (%) (Auto) 72.7 % (45.0-75.0) Lymphocytes (%) (Auto) 15.4 % (20.0-45.0) L Monocytes (%) (Auto) 9.5 % (1.0-10.0) Eosinophils (%) (Auto) 0.9 % (0.0-3.0) Basophils (%) (Auto) 1.4 % (0.0-2.0) Microbiology Date/Time Source Procedure Growth Status 06/18/17 09:10 Sputum Gram Stain - Final Complete 06/18/17 09:10 Sputum Sputum Culture - Final NORMAL UPPER RESPIRATORY KEELY PRESENT Complete 06/17/17 18:30 Nasopharynx Influenza Types A,B Antigen (LANCE) - Final Complete TIFFANI RINCON Jun 20, 2017 14:19
[2017-06-20] MEDS: Morphine Sulfate 2mg/ml Inj IVP PRN ×2 (15:47→21:16)
[2017-06-20 16:00] VITALS: BP 115/78
[2017-06-20 19:57] VITALS: BP 135/80
[2017-06-21] VITALS: BP 126/75
[2017-06-21 04:00] VITALS: BP 122/78
[2017-06-21 06:37] LABS: BASOPHILS % (AUTO) 1.4 % (0.0-2.0); HEMATOCRIT 39.1 % (37.0-47.0); HEMOGLOBIN 13.1 G/DL (12.0-16.0); LYMPHOCYTES % (AUTO) 22.7 % (20.0-45.0); MEAN CORPUSCULAR VOLUME 98 FL (80-99); MONOCYTES % (AUTO) 12.1 % (1.0-10.0); NEUTROPHILS % (AUTO) 63.8 % (45.0-75.0); PLATELET COUNT 289 K/UL (150-450); RED BLOOD COUNT 3.98 M/UL (4.20-5.40); RED CELL DISTRIBUTION WIDTH 12.4 % (11.6-14.8); WHITE BLOOD COUNT 9.4 K/UL (4.8-10.8)
[2017-06-21 06:51] LABS: ANION GAP 2 mmol/L (5-15); BLOOD UREA NITROGEN 8 mg/dL (7-18); CARBON DIOXIDE 38 MMOL/L (21-32); CHLORIDE 100 MMOL/L (98-107); CREATININE 0.6 MG/DL (0.55-1.30); SODIUM 140 MMOL/L (136-145)
[2017-06-21] MEDS: Morphine Sulfate 2mg/ml Inj IVP PRN ×2 (07:53→22:51)
[2017-06-21 08:00] VITALS: BP 111/50
[2017-06-21] MEDS: Heparin 5000 units/ml inj SUBQ SCH ×2 (09:17→20:28)
--- NOTE | 2017-06-21 10:05 | Infectious Diseases Prog Note ---
Assessment/Plan Assessment/Plan Acute hypoxic/hypercapenic resp failure- possible PNA, -CXR 06/18: Diffuse hazy airspace disease throughout the left lung. Note that this may in part be an artifact overlying soft tissue, however -CXR: There is generalized mild interstitial prominence, and central bronchial wall thickening. There is slight blunting of left costophrenic sulcus. -influenza rapid neg x2 -sp cx Normal frank Fever, SP leukocytosis- SP HTN DE CAD CHF COPD GERD Schizophrenia SNF resident Plan: - cont Ceftriaxone d# 4/5 add Levaquin d# 3/5 for possible atypical PNA/ bacterial bronchitis 06/18 SP Zosyn #3 and Tamiflu #2 -give Influenza vaccine prior to discharge -f/u cx -Monitor CBC/BMP, temperatures -aspiration precautions -legionella ag urine Subjective Allergies: Coded Allergies: HALOPERIDOL (Verified Allergy, Unknown, 06/16/17) PREDNISONE (Verified Allergy, Unknown, 06/16/17) Subjective afebrile no leukocytosis on 3l NC Objective Vital Signs Last 24 Hour Vital Signs Date Time Temp Pulse Resp B/P (MAP) Pulse Ox O2 Delivery O2 Flow Rate FiO2 06/21/17 08:00 78 06/21/17 08:00 98.2 99 20 111/50 96 Nasal Cannula 3.0 06/21/17 07:25 97 20 99 Bi-pap 4.0 36 06/21/17 07:20 97 22 97 Nasal Cannula 4.0 36 06/21/17 07:20 97 22 Nasal Cannula 4.0 36 06/21/17 04:00 116 06/21/17 04:00 98.3 114 20 122/78 95 Nasal Cannula 3.0 06/21/17 00:00 104 06/21/17 00:00 98.2 110 20 126/75 95 Nasal Cannula 3.0 06/20/17 21:46 98.2 06/20/17 20:00 106 06/20/17 19:57 98.2 116 20 135/80 98 Nasal Cannula 3.0 06/20/17 19:00 110 24 Nasal Cannula 3.0 32 06/20/17 16:00 149 06/20/17 16:00 98.8 95 22 115/78 95 Nasal Cannula 3.0 06/20/17 12:00 98.0 106 23 130/65 97 Bi-pap 45 06/20/17 12:00 103 06/20/17 11:05 127 20 96 Facial 45 Height (Feet): 5 Height (Inches): 3.00 Weight (Pounds): 179 Objective General Appearance: Obese Lines, tubes and drains: peripheral HEENT: normocephalic, atraumatic Neck: non-tender, supple Respiratory/Chest: lungs clear, rhonchi - bilaterally Cardiovascular/Chest: normal peripheral pulses Abdomen: normal bowel sounds Extremities: normal range of motion Laboratory Tests Test 06/21/17 04:50 White Blood Count 9.4 K/UL (4.8-10.8) Red Blood Count 3.98 M/UL (4.20-5.40) L Hemoglobin 13.1 G/DL (12.0-16.0) Hematocrit 39.1 % (37.0-47.0) Mean Corpuscular Volume 98 FL (80-99) Mean Corpuscular Hemoglobin 33.0 PG (27.0-31.0) H Mean Corpuscular Hemoglobin Concent 33.6 G/DL (32.0-36.0) Red Cell Distribution Width 12.4 % (11.6-14.8) Platelet Count 289 K/UL (150-450) Mean Platelet Volume 5.6 FL (6.5-10.1) L Neutrophils (%) (Auto) 63.8 % (45.0-75.0) Lymphocytes (%) (Auto) 22.7 % (20.0-45.0) Monocytes (%) (Auto) 12.1 % (1.0-10.0) H Eosinophils (%) (Auto) 0.0 % (0.0-3.0) Basophils (%) (Auto) 1.4 % (0.0-2.0) Sodium Level 140 MMOL/L (136-145) Potassium Level 4.0 MMOL/L (3.5-5.1) Chloride Level 100 MMOL/L (98-107) Carbon Dioxide Level 38 MMOL/L (21-32) H Anion Gap 2 mmol/L (5-15) L Blood Urea Nitrogen 8 mg/dL (7-18) Creatinine 0.6 MG/DL (0.55-1.30) Estimat Glomerular Filtration Rate mL/min (>60) Glucose Level 92 MG/DL (74-106) Calcium Level 8.0 MG/DL (8.5-10.1) L Current Medications Medications (Trade) Dose Ordered Sig/Marleni Route PRN Reason Start Time Stop Time Status Last Admin Dose Admin Albuterol/ Ipratropium (Albuterol/ Ipratropium) 3 ml Q4H PRN HHN dyspnea 06/19/17 17:00 06/24/17 16:59 06/21/17 07:14 Ceftriaxone Sodium 1 gm/ Dextrose 55 ml @ 110 mls/hr Q24H IVPB 06/18/17 14:00 06/25/17 23:59 06/20/17 13:01 Dextrose (Dextrose 50%) STAT PRN IV Hypoglycemia 06/16/17 13:00 07/16/17 12:59 Heparin Sodium (Porcine) (Heparin 5000 units/ml) 5,000 units EVERY 12 HOURS SUBQ 06/16/17 21:00 07/16/17 20:59 06/21/17 09:17 Influenza Virus Vaccine Quadrival (Flu Vaccine Quadrivalent) 0.5 ml ONCE ONCE IM 06/19/17 15:45 06/19/17 15:46 UNV Ketorolac Tromethamine (Toradol 30mg) 30 mg Q8H PRN IV Moderate Pain (Pain Scale 4-6) 06/16/17 13:00 06/21/17 12:59 06/18/17 11:20 Levofloxacin 150 ml @ 100 mls/hr Q24H IVPB 06/19/17 16:00 06/26/17 15:59 06/20/17 15:30 Lorazepam (Ativan 2mg/ml 1ml) 0.5 mg Q4H PRN IV For Anxiety 06/16/17 13:00 06/23/17 12:59 Morphine Sulfate (Morphine Sulfate) 2 mg Q4H PRN IVP Severe Pain (Pain Scale 7-10) 06/16/17 13:00 06/23/17 12:59 06/21/17 07:53 Nitroglycerin (Ntg) 0.4 mg Q5M X 3 DOSES PRN SL Prn Chest Pain 06/16/17 13:00 07/16/17 12:59 Ondansetron HCl (Zofran) 4 mg Q6H PRN IVP Nausea & Vomiting 06/16/17 13:00 07/16/17 12:59 06/20/17 12:55 Pneumococcal Polyvalent Vaccine (Pneumovax) 0.5 ml ONCE ONCE IM 06/17/17 09:00 06/17/17 09:01 UNV Promethazine HCl/ Codeine (Phenergan with Codeine) 5 ml Q6H PRN ORAL cough 06/16/17 13:00 07/16/17 12:59 06/20/17 19:59 Temazepam (Restoril) 15 mg HSPRN PRN ORAL Insomnia 06/16/17 21:00 06/23/17 20:59 Ange Grant M.D. Jun 21, 2017 10:05
--- NOTE | 2017-06-21 11:42 | Pulmonology Progress Note ---
Assessment/Plan Problems: (1) Respiratory distress (2) CHF exacerbation (3) Atrial fibrillation with RVR (4) COPD exacerbation (5) Fever (6) MELVIN (obstructive sleep apnea) Assessment/Plan cxr reviewed on 06/21 feelign much better afebrile doing better continue abx pt ot, med/surg f/u cardio recommendations Subjective ROS Limited/Unobtainable: No Interval Events: feeling better, Allergies: Coded Allergies: HALOPERIDOL (Verified Allergy, Unknown, 06/16/17) PREDNISONE (Verified Allergy, Unknown, 06/16/17) Objective Last 24 Hour Vital Signs Date Time Temp Pulse Resp B/P (MAP) Pulse Ox O2 Delivery O2 Flow Rate FiO2 06/21/17 08:00 78 06/21/17 08:00 98.2 99 20 111/50 96 Nasal Cannula 3.0 06/21/17 07:25 97 20 99 Bi-pap 4.0 36 06/21/17 07:20 97 22 97 Nasal Cannula 4.0 36 06/21/17 07:20 97 22 Nasal Cannula 4.0 36 06/21/17 04:00 116 06/21/17 04:00 98.3 114 20 122/78 95 Nasal Cannula 3.0 06/21/17 00:00 104 06/21/17 00:00 98.2 110 20 126/75 95 Nasal Cannula 3.0 06/20/17 21:46 98.2 06/20/17 20:00 106 06/20/17 19:57 98.2 116 20 135/80 98 Nasal Cannula 3.0 06/20/17 19:00 110 24 Nasal Cannula 3.0 32 06/20/17 16:00 149 06/20/17 16:00 98.8 95 22 115/78 95 Nasal Cannula 3.0 06/20/17 12:00 98.0 106 23 130/65 97 Bi-pap 45 06/20/17 12:00 103 Intake and Output 06/20/17 06/21/17 19:00 07:00 Intake Total 955 ml Output Total 500 ml 575 ml Balance 455 ml -575 ml Intake Oral 750 ml IV Total 205 ml Output Urine Total 500 ml 575 ml # Bowel Movements 1 Objective General Appearance: Obese Lines, tubes and drains: peripheral HEENT: normocephalic, atraumatic Neck: non-tender, supple Respiratory/Chest: lungs clear, rhonchi - bilaterally Cardiovascular/Chest: normal peripheral pulses Abdomen: normal bowel sounds Genitourinary/Rectal: normal genital exam, normal prostate exam Extremities: normal range of motion Laboratory Tests 06/21/17 04:50: White Blood Count 9.4, Red Blood Count 3.98L, Hemoglobin 13.1, Hematocrit 39.1, Mean Corpuscular Volume 98, Mean Corpuscular Hemoglobin 33.0H, Mean Corpuscular Hemoglobin Concent 33.6, Red Cell Distribution Width 12.4, Platelet Count 289, Mean Platelet Volume 5.6L, Neutrophils (%) (Auto) 63.8, Lymphocytes (%) (Auto) 22.7, Monocytes (%) (Auto) 12.1H, Eosinophils (%) (Auto) 0.0, Basophils (%) ( Auto) 1.4, Sodium Level 140, Potassium Level 4.0, Chloride Level 100, Carbon Dioxide Level 38H, Anion Gap 2L, Blood Urea Nitrogen 8, Creatinine 0.6, Estimat Glomerular Filtration Rate , Glucose Level 92, Calcium Level 8.0L Current Medications Medications (Trade) Dose Ordered Sig/Marleni Route PRN Reason Start Time Stop Time Status Last Admin Dose Admin Albuterol/ Ipratropium (Albuterol/ Ipratropium) 3 ml Q4H PRN HHN dyspnea 06/19/17 17:00 06/24/17 16:59 06/21/17 07:14 Ceftriaxone Sodium 1 gm/ Dextrose 55 ml @ 110 mls/hr Q24H IVPB 06/18/17 14:00 06/25/17 23:59 06/20/17 13:01 Dextrose (Dextrose 50%) STAT PRN IV Hypoglycemia 06/16/17 13:00 07/16/17 12:59 Heparin Sodium (Porcine) (Heparin 5000 units/ml) 5,000 units EVERY 12 HOURS SUBQ 06/16/17 21:00 07/16/17 20:59 06/21/17 09:17 Influenza Virus Vaccine Quadrival (Flu Vaccine Quadrivalent) 0.5 ml ONCE ONCE IM 06/19/17 15:45 06/19/17 15:46 UNV Ketorolac Tromethamine (Toradol 30mg) 30 mg Q8H PRN IV Moderate Pain (Pain Scale 4-6) 06/16/17 13:00 06/21/17 12:59 1/5/18 11:20 Levofloxacin 150 ml @ 100 mls/hr Q24H IVPB 06/19/17 16:00 06/26/17 15:59 06/20/17 15:30 Lorazepam (Ativan 2mg/ml 1ml) 0.5 mg Q4H PRN IV For Anxiety 06/16/17 13:00 06/23/17 12:59 Morphine Sulfate (Morphine Sulfate) 2 mg Q4H PRN IVP Severe Pain (Pain Scale 7-10) 06/16/17 13:00 06/23/17 12:59 06/21/17 07:53 Nitroglycerin (Ntg) 0.4 mg Q5M X 3 DOSES PRN SL Prn Chest Pain 06/16/17 13:00 07/16/17 12:59 Ondansetron HCl (Zofran) 4 mg Q6H PRN IVP Nausea & Vomiting 06/16/17 13:00 07/16/17 12:59 06/20/17 12:55 Pneumococcal Polyvalent Vaccine (Pneumovax) 0.5 ml ONCE ONCE IM 06/17/17 09:00 06/17/17 09:01 UNV Promethazine HCl/ Codeine (Phenergan with Codeine) 5 ml Q6H PRN ORAL cough 06/16/17 13:00 07/16/17 12:59 06/20/17 19:59 Temazepam (Restoril) 15 mg HSPRN PRN ORAL Insomnia 06/16/17 21:00 06/23/17 20:59 GURINDER ROY Jun 21, 2017 11:42
[2017-06-21 12:00] VITALS: BP 136/87
[2017-06-21] MEDS ORDERED: Pneumococcal Vaccine 25mcg/0.5ml IM ONE (13:15)
[2017-06-21] MEDS ORDERED: LORazepam Inj 2mg/ml 1ml IV PRN (14:00)
[2017-06-21] MEDS ORDERED: Nitroglycerin Subl 0.4mg tab SL PRN (14:00)
[2017-06-21] MEDS ORDERED: Flu Vaccine Quadrivalent 0.5ml IM ONE (14:30)
[2017-06-21] MEDS: cefTRIAXone 1 GM in D5W 55 ML IVPB SCH (15:44)
[2017-06-21] MEDS: Albuterol/Ipratropium 3ml neb HHN PRN ×2 (15:52→20:46)
[2017-06-21 20:00] VITALS: BP 132/61
--- NOTE | 2017-06-21 21:47 | Diagnostic Imaging Report ---
Indication:pleural effusion Technique: Grayscale and duplex Doppler imaging of the chest performed. Comparison: None Findings: There is no pleural effusion significant enough to warrant therapeutic or diagnostic thoracentesis. IMPRESSION: No significant pleural effusion
--- NOTE | 2017-06-21 21:48 | Diagnostic Imaging Report ---
Indication: Dyspnea Comparison: 06/19/2017 A single view chest radiograph was obtained. Findings: Vascular congestion demonstrated with prominent central hilar vessels and cardiomegaly. Interstitial edema suspected. Bones are osteopenic. IMPRESSION: No change. Interstitial edema suspected
[2017-06-22] VITALS (7 sets, daily range): BP systolic 107–135; BP diastolic 56–85
[2017-06-22] MEDS: Promethazine/Codeine 5ml UD ORAL PRN ×2 (04:07→16:40)
[2017-06-22] MEDS: Albuterol/Ipratropium 3ml neb HHN PRN ×2 (08:53→20:19)
[2017-06-22] MEDS: Heparin 5000 units/ml inj SUBQ SCH ×2 (09:27→20:06)
--- NOTE | 2017-06-22 12:22 | Infectious Diseases Prog Note ---
Assessment/Plan Assessment/Plan Acute hypoxic/hypercapenic resp failure- possible PNA, -CXR 06/18: Diffuse hazy airspace disease throughout the left lung. Note that this may in part be an artifact overlying soft tissue, however -CXR: There is generalized mild interstitial prominence, and central bronchial wall thickening. There is slight blunting of left costophrenic sulcus. -influenza rapid neg x2 -sp cx Normal frank -Bcx neg Fever, SP leukocytosis- SP HTN [place] CAD CHF COPD GERD Schizophrenia SNF resident Plan: - cont Ceftriaxone d# 5/ and Levaquin d# 4/5 for possible atypical PNA/ bacterial bronchitis 06/18 SP Zosyn #3 and Tamiflu #2 -Monitor CBC/BMP, temperatures -aspiration precautions -legionella ag urine Subjective Allergies: Coded Allergies: HALOPERIDOL (Verified Allergy, Unknown, 06/16/17) PREDNISONE (Verified Allergy, Unknown, 06/16/17) Subjective afebrile no leukocytosis on 3l NC Objective Vital Signs Last 24 Hour Vital Signs Date Time Temp Pulse Resp B/P (MAP) Pulse Ox O2 Delivery O2 Flow Rate FiO2 06/22/17 08:54 80 22 Nasal Cannula 2.0 28 06/22/17 08:53 80 22 96 Nasal Cannula 2.0 28 06/22/17 08:00 98.1 77 18 131/66 93 Nasal Cannula 4.0 06/22/17 04:00 98.9 85 18 130/80 95 Nasal Cannula 4.0 06/22/17 00:00 98.2 84 18 119/85 94 Nasal Cannula 4.0 06/21/17 23:21 98.4 06/21/17 20:31 87 24 99 Nasal Cannula 2.0 28 06/21/17 20:21 83 22 94 Nasal Cannula 4.0 36 06/21/17 20:00 98.4 73 18 132/61 94 Nasal Cannula 2.0 06/21/17 19:00 94 20 Nasal Cannula 4.0 36 06/21/17 16:09 79 22 99 Nasal Cannula 2.0 28 06/21/17 15:53 76 20 97 Nasal Cannula 4.0 36 Height (Feet): 5 Height (Inches): 3.00 Weight (Pounds): 179 Objective General Appearance: Obese Lines, tubes and drains: peripheral HEENT: normocephalic, atraumatic Neck: non-tender, supple Respiratory/Chest: lungs clear, rhonchi - bilaterally Cardiovascular/Chest: normal peripheral pulses Abdomen: normal bowel sounds Extremities: normal range of motion Current Medications Medications (Trade) Dose Ordered Sig/Marleni Route PRN Reason Start Time Stop Time Status Last Admin Dose Admin Albuterol/ Ipratropium (Albuterol/ Ipratropium) 3 ml Q4H PRN HHN dyspnea 06/21/17 14:00 06/24/17 13:59 06/22/17 08:53 Ceftriaxone Sodium 1 gm/ Dextrose 55 ml @ 110 mls/hr Q24H IVPB 06/21/17 14:00 06/25/17 23:59 06/21/17 15:44 Dextrose (Dextrose 50%) STAT PRN IV Hypoglycemia 06/22/17 14:00 07/16/17 13:59 Heparin Sodium (Porcine) (Heparin 5000 units/ml) 5,000 units EVERY 12 HOURS SUBQ 06/21/17 21:00 07/16/17 20:59 06/22/17 09:27 Influenza Virus Vaccine Quadrival (Flu Vaccine Quadrivalent) 0.5 ml ONCE ONCE IM 06/21/17 13:15 06/22/18 15:46 UNV Levofloxacin 150 ml @ 100 mls/hr Q24H IVPB 06/21/17 16:00 06/26/17 15:59 06/21/17 17:37 Lorazepam (Ativan 2mg/ml 1ml) 0.5 mg Q4H PRN IV For Anxiety 06/21/17 14:00 06/23/17 13:59 Morphine Sulfate (Morphine Sulfate) 2 mg Q4H PRN IVP Severe Pain (Pain Scale 7-10) 06/21/17 14:00 06/23/17 13:59 06/21/17 22:51 Nitroglycerin (Ntg) 0.4 mg Q5M X 3 DOSES PRN SL Prn Chest Pain 06/21/17 14:00 07/16/17 13:59 Ondansetron HCl (Zofran) 4 mg Q6H PRN IVP Nausea & Vomiting 06/21/17 14:00 07/16/17 13:59 06/22/17 09:25 Pneumococcal Polyvalent Vaccine (Pneumovax) 0.5 ml ONCE ONCE IM 06/21/17 13:15 06/22/18 09:01 UNV Promethazine HCl/ Codeine (Phenergan with Codeine) 5 ml Q6H PRN ORAL cough 06/21/17 14:00 07/16/17 13:59 06/22/17 04:07 Temazepam (Restoril) 15 mg HSPRN PRN ORAL Insomnia 06/21/17 21:00 06/23/17 20:59 06/22/17 01:10 Ange Grant M.D. Jun 22, 2017 12:22
--- NOTE | 2017-06-22 14:48 | Diagnostic Imaging Report ---
Indication: Shortness of breath Technique: AP chest Comparison: 06/18/2017 Findings: Patient positioning limits evaluation. Cardiac silhouette is prominent. Bilateral interstitial opacities are noted. Nodular airspace opacities are seen of the left lung. Rotation limits evaluation but there is apparent left lung volume loss. Degenerative changes of the spine are noted. Impression: Patient rotation limiting evaluation. Apparent increased density and volume loss in the left lung. Partial lung collapse or pleural effusion cannot be excluded. Repeat examination recommended. Redemonstration of bilateral interstitial and left lung nodular airspace edema/infiltrates. Clinical correlation/follow-up recommended.
[2017-06-22] MEDS: cefTRIAXone 1 GM in D5W 55 ML IVPB SCH (15:00)
[2017-06-22] MEDS ORDERED: Tubing IV Secondary IV ONE (17:34)
[2017-06-22] MEDS ORDERED: NS 500ML ONE (17:34)
[2017-06-22] MEDS: Morphine Sulfate 2mg/ml Inj IVP PRN (18:38)
--- NOTE | 2017-06-22 20:47 | Pulmonology Progress Note ---
Assessment/Plan Problems: (1) Respiratory distress (2) CHF exacerbation (3) Atrial fibrillation with RVR (4) COPD exacerbation (5) Fever (6) MELVIN (obstructive sleep apnea) Assessment/Plan no new complains Feeling much better Afebrile Doing better Continue abx PT/OT, Med/surg F/U cardio recommendations dc planning in process Subjective ROS Limited/Unobtainable: No Constitutional: Reports: fatigue Allergies: Coded Allergies: HALOPERIDOL (Verified Allergy, Unknown, 06/16/17) PREDNISONE (Verified Allergy, Unknown, 06/16/17) Objective Last 24 Hour Vital Signs Date Time Temp Pulse Resp B/P (MAP) Pulse Ox O2 Delivery O2 Flow Rate FiO2 06/22/17 20:23 85 24 99 Nasal Cannula 2.0 28 06/22/17 20:20 82 22 95 Nasal Cannula 2.0 28 06/22/17 20:20 85 22 Nasal Cannula 2.0 28 06/22/17 20:00 98.1 75 22 131/69 95 06/22/17 19:08 98.2 06/22/17 16:00 98.2 75 23 123/56 91 06/22/17 12:00 98.2 81 20 107/56 93 06/22/17 08:54 80 22 Nasal Cannula 2.0 28 06/22/17 08:53 80 22 96 Nasal Cannula 2.0 28 06/22/17 08:00 98.1 77 18 131/66 93 Nasal Cannula 4.0 06/22/17 04:00 98.9 85 18 130/80 95 Nasal Cannula 4.0 06/22/17 00:00 98.2 84 18 119/85 94 Nasal Cannula 4.0 Intake and Output 06/21/17 06/22/17 19:00 07:00 Intake Total 480 ml 400 ml Output Total 400 ml Balance 80 ml 400 ml Intake Oral 480 ml 400 ml Output Urine Total 400 ml # Voids 8 # Bowel Movements 1 General Appearance: no acute distress HEENT: normocephalic, atraumatic, PERRL Respiratory/Chest: lungs clear, normal breath sounds, no respiratory distress Breasts: no masses Cardiovascular: normal peripheral pulses, normal rate, regular rhythm, no JVD Abdomen: normal bowel sounds, soft, non tender, no organomegaly, non distended , no mass Genitourinary: normal external genitalia Extremities: no cyanosis Skin: no rash, no lesions 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, no motor/sensory deficits Current Medications Medications (Trade) Dose Ordered Sig/Marleni Route PRN Reason Start Time Stop Time Status Last Admin Dose Admin Albuterol/ Ipratropium (Albuterol/ Ipratropium) 3 ml Q4H PRN HHN dyspnea 06/21/17 14:00 06/24/17 13:59 06/22/17 20:19 Ceftriaxone Sodium 1 gm/ Dextrose 55 ml @ 110 mls/hr Q24H IVPB 06/21/17 14:00 06/25/17 23:59 06/22/17 15:00 Dextrose (Dextrose 50%) STAT PRN IV Hypoglycemia 06/22/17 14:00 07/16/17 13:59 Heparin Sodium (Porcine) (Heparin 5000 units/ml) 5,000 units EVERY 12 HOURS SUBQ 06/21/17 21:00 07/16/17 20:59 06/22/17 20:06 Levofloxacin 150 ml @ 100 mls/hr Q24H IVPB 06/21/17 16:00 06/26/17 15:59 06/22/17 17:07 Lorazepam (Ativan 2mg/ml 1ml) 0.5 mg Q4H PRN IV For Anxiety 06/21/17 14:00 06/23/17 13:59 Morphine Sulfate (Morphine Sulfate) 2 mg Q4H PRN IVP Severe Pain (Pain Scale 7-10) 06/21/17 14:00 06/23/17 13:59 06/22/17 18:38 Nitroglycerin (Ntg) 0.4 mg Q5M X 3 DOSES PRN SL Prn Chest Pain 06/21/17 14:00 07/16/17 13:59 Ondansetron HCl (Zofran) 4 mg Q6H PRN IVP Nausea & Vomiting 06/21/17 14:00 07/16/17 13:59 06/22/17 09:25 Promethazine HCl/ Codeine (Phenergan with Codeine) 5 ml Q6H PRN ORAL cough 06/21/17 14:00 07/16/17 13:59 06/22/17 16:40 Temazepam (Restoril) 15 mg HSPRN PRN ORAL Insomnia 06/21/17 21:00 06/23/17 20:59 06/22/17 01:10 GURINDER ROY Jun 22, 2017 20:47
[2017-06-23] MEDS: Promethazine/Codeine 5ml UD ORAL PRN ×2 (00:41→10:26)
[2017-06-23 04:20] VITALS: BP 162/58
[2017-06-23 08:15] VITALS: BP 103/58
[2017-06-23] MEDS: Heparin 5000 units/ml inj SUBQ SCH ×2 (09:23→20:19)
[2017-06-23 11:59] VITALS: BP 129/70
--- NOTE | 2017-06-23 12:18 | Infectious Diseases Prog Note ---
Assessment/Plan Assessment/Plan Acute hypoxic/hypercapenic resp failure- possible PNA, -CXR 06/18: Diffuse hazy airspace disease throughout the left lung. Note that this may in part be an artifact overlying soft tissue, however -CXR: There is generalized mild interstitial prominence, and central bronchial wall thickening. There is slight blunting of left costophrenic sulcus. -influenza rapid neg x2 -sp cx Normal frank -Bcx neg Fever, SP leukocytosis- SP HTN DC CAD CHF COPD GERD Schizophrenia SNF resident Plan: - cont Levaquin d# / (switch to PO) for possible atypical PNA/bacterial bronchitis; ok to discharge back to SNF 06/22 SP Ceftriaxone #5 06/18 SP Zosyn #3 and Tamiflu #2 -Monitor CBC/BMP, temperatures -aspiration precautions -f/u legionella ag urine Subjective Allergies: Coded Allergies: HALOPERIDOL (Verified Allergy, Unknown, 06/16/17) PREDNISONE (Verified Allergy, Unknown, 06/16/17) Subjective afebrile no leukocytosis on 3l NC for discharge today Objective Vital Signs Last 24 Hour Vital Signs Date Time Temp Pulse Resp B/P (MAP) Pulse Ox O2 Delivery O2 Flow Rate FiO2 06/23/17 11:59 97.7 83 19 129/70 97 Nasal Cannula 2.0 06/23/17 08:15 97.9 78 20 103/58 95 Nasal Cannula 2.0 06/23/17 07:28 76 24 Nasal Cannula 3.0 32 06/23/17 06:54 06/23/17 04:20 98.5 85 20 162/58 92 Room Air 06/22/17 23:55 97.7 85 20 135/81 97 06/22/17 20:23 85 24 99 Nasal Cannula 2.0 28 06/22/17 20:20 82 22 95 Nasal Cannula 2.0 28 06/22/17 20:20 85 22 Nasal Cannula 2.0 28 06/22/17 20:00 98.1 75 22 131/69 95 06/22/17 19:08 98.2 06/22/17 16:00 98.2 75 23 123/56 91 Height (Feet): 5 Height (Inches): 3.00 Weight (Pounds): 179 Objective General Appearance: Obese Lines, tubes and drains: peripheral HEENT: normocephalic, atraumatic Neck: non-tender, supple Respiratory/Chest: lungs clear, rhonchi - bilaterally Cardiovascular/Chest: normal peripheral pulses Abdomen: normal bowel sounds Extremities: normal range of motion Current Medications Medications (Trade) Dose Ordered Sig/Marleni Route PRN Reason Start Time Stop Time Status Last Admin Dose Admin Albuterol/ Ipratropium (Albuterol/ Ipratropium) 3 ml Q4H PRN HHN dyspnea 06/21/17 14:00 06/24/17 13:59 06/22/17 20:19 Ceftriaxone Sodium 1 gm/ Dextrose 55 ml @ 110 mls/hr Q24H IVPB 06/21/17 14:00 06/25/17 23:59 06/22/17 15:00 Dextrose (Dextrose 50%) STAT PRN IV Hypoglycemia 06/22/17 14:00 07/16/17 13:59 Heparin Sodium (Porcine) (Heparin 5000 units/ml) 5,000 units EVERY 12 HOURS SUBQ 06/21/17 21:00 07/16/17 20:59 06/23/17 09:23 Levofloxacin (Levaquin) 750 mg DAILY ORAL 06/23/17 09:00 06/24/17 09:01 06/23/17 10:03 Lorazepam (Ativan 2mg/ml 1ml) 0.5 mg Q4H PRN IV For Anxiety 06/21/17 14:00 06/23/17 13:59 Morphine Sulfate (Morphine Sulfate) 2 mg Q4H PRN IVP Severe Pain (Pain Scale 7-10) 06/21/17 14:00 06/23/17 13:59 06/22/17 18:38 Nitroglycerin (Ntg) 0.4 mg Q5M X 3 DOSES PRN SL Prn Chest Pain 06/21/17 14:00 07/16/17 13:59 Ondansetron HCl (Zofran ODT) 4 mg Q6H PRN ORAL Nausea & Vomiting 06/23/17 12:00 07/23/17 11:59 Promethazine HCl/ Codeine (Phenergan with Codeine) 5 ml Q6H PRN ORAL cough 06/21/17 14:00 07/16/17 13:59 06/23/17 10:26 Temazepam (Restoril) 15 mg HSPRN PRN ORAL Insomnia 06/21/17 21:00 06/23/17 20:59 06/22/17 21:11 Ange Grant M.D. Jun 23, 2017 12:18
[2017-06-23] MEDS: Albuterol/Ipratropium 3ml neb HHN PRN (13:47)
[2017-06-23] MEDS ORDERED: NS 500ML ONE (15:24)
[2017-06-23 16:00] VITALS: BP 108/53
--- NOTE | 2017-06-23 17:09 | Pulmonology Progress Note ---
Assessment/Plan Problems: (1) Respiratory distress (2) CHF exacerbation (3) Atrial fibrillation with RVR (4) COPD exacerbation (5) Fever (6) MELVIN (obstructive sleep apnea) Assessment/Plan no new complains Afebrile Doing better Continue abx PT/OT, Med/surg F/U cardio recommendations dc planning in progress Subjective Interval Events: no new comlains Allergies: Coded Allergies: HALOPERIDOL (Verified Allergy, Unknown, 06/16/17) PREDNISONE (Verified Allergy, Unknown, 06/16/17) Objective Last 24 Hour Vital Signs Date Time Temp Pulse Resp B/P (MAP) Pulse Ox O2 Delivery O2 Flow Rate FiO2 06/23/17 13:47 80 20 95 Nasal Cannula 2.0 06/23/17 11:59 97.7 83 19 129/70 97 Nasal Cannula 2.0 06/23/17 08:15 97.9 78 20 103/58 95 Nasal Cannula 2.0 06/23/17 07:28 76 24 Nasal Cannula 3.0 32 06/23/17 06:54 06/23/17 04:20 98.5 85 20 162/58 92 Room Air 06/22/17 23:55 97.7 85 20 135/81 97 06/22/17 20:23 85 24 99 Nasal Cannula 2.0 28 06/22/17 20:20 82 22 95 Nasal Cannula 2.0 28 06/22/17 20:20 85 22 Nasal Cannula 2.0 28 06/22/17 20:00 98.1 75 22 131/69 95 06/22/17 19:08 98.2 Intake and Output 06/22/17 06/23/17 19:00 07:00 Intake Total 360 ml Balance 360 ml Intake Oral 360 ml # Voids 7 2 # Bowel Movements 1 Objective General Appearance: Obese Lines, tubes and drains: peripheral HEENT: normocephalic, atraumatic Neck: non-tender, supple Respiratory/Chest: lungs clear, rhonchi - bilaterally Cardiovascular/Chest: normal peripheral pulses Abdomen: normal bowel sounds Genitourinary/Rectal: normal genital exam, normal prostate exam Extremities: normal range of motion Current Medications Medications (Trade) Dose Ordered Sig/Marleni Route PRN Reason Start Time Stop Time Status Last Admin Dose Admin Albuterol/ Ipratropium (Albuterol/ Ipratropium) 3 ml Q4H PRN HHN dyspnea 06/21/17 14:00 06/24/17 13:59 06/23/17 13:47 Dextrose (Dextrose 50%) STAT PRN IV Hypoglycemia 06/22/17 14:00 07/16/17 13:59 Heparin Sodium (Porcine) (Heparin 5000 units/ml) 5,000 units EVERY 12 HOURS SUBQ 06/21/17 21:00 07/16/17 20:59 06/23/17 09:23 Levofloxacin (Levaquin) 750 mg DAILY ORAL 06/23/17 09:00 06/24/17 09:01 06/23/17 10:03 Nitroglycerin (Ntg) 0.4 mg Q5M X 3 DOSES PRN SL Prn Chest Pain 06/21/17 14:00 07/16/17 13:59 Ondansetron HCl (Zofran ODT) 4 mg Q6H PRN ORAL Nausea & Vomiting 06/23/17 12:00 07/23/17 11:59 06/23/17 12:28 Promethazine HCl/ Codeine (Phenergan with Codeine) 5 ml Q6H PRN ORAL cough 06/21/17 14:00 07/16/17 13:59 06/23/17 10:26 Temazepam (Restoril) 15 mg HSPRN PRN ORAL Insomnia 06/21/17 21:00 06/23/17 20:59 06/22/17 21:11 GURINDER ROY Jun 23, 2017 17:09
[2017-06-23] MEDS: Morphine Sulfate 2mg/ml Inj IVP PRN (18:48)
[2017-06-23 20:38] VITALS: BP 112/49
[2017-06-24] VITALS: BP 107/38
[2017-06-24] MEDS: Albuterol/Ipratropium 3ml neb HHN PRN (00:16)
[2017-06-24] MEDS: Promethazine/Codeine 5ml UD ORAL PRN (03:41)
[2017-06-24 04:19] VITALS: BP 130/70
[2017-06-24 08:11] VITALS: BP 100/59
[2017-06-24] MEDS: Heparin 5000 units/ml inj SUBQ SCH (08:48)
[2017-06-24] MEDS: Morphine Sulfate 2mg/ml Inj IVP PRN (10:27)
[2017-06-24 11:50] VITALS: BP 117/68
[2017-06-24] MEDS ORDERED: PROMETHAZINE-C118 M1 ORAL (13:04)
[2017-06-24] MEDS ORDERED: DUONEB 0.5-3(2.53 ML HHN (13:05)
[2017-06-24] MEDS ORDERED: HEPARIN SO5000 UNIT2 SUBQ (13:05)
[2017-06-24] MEDS ORDERED: NORCO 10-325 T1 EACH ORAL (13:05)
[2017-06-24] MEDS ORDERED: NITRO-BID1 GM TOPIC (13:07)
[2017-06-24] MEDS ORDERED: NITROSTAT0.4 M1 SL (13:08)
[2017-06-24] MEDS ORDERED: ZOFRAN ODT4 MG ORAL (13:08)
--- NOTE | 2017-06-24 17:01 | Infectious Diseases Prog Note ---
Assessment/Plan Assessment/Plan Acute hypoxic/hypercapenic resp failure- possible PNA, -CXR 06/18: Diffuse hazy airspace disease throughout the left lung. Note that this may in part be an artifact overlying soft tissue, however -CXR: There is generalized mild interstitial prominence, and central bronchial wall thickening. There is slight blunting of left costophrenic sulcus. -influenza rapid neg x2 -sp cx Normal frank -Bcx neg Fever, SP leukocytosis- SP HTN [place] CAD CHF COPD GERD Schizophrenia SNF resident Plan: - Ok to discharge to SNF off abx 06/23 SP Levaquin #5 06/22 SP Ceftriaxone #5 06/18 SP Zosyn #3 and Tamiflu #2 -Monitor CBC/BMP, temperatures -aspiration precautions Subjective Allergies: Coded Allergies: HALOPERIDOL (Verified Allergy, Unknown, 06/16/17) PREDNISONE (Verified Allergy, Unknown, 06/16/17) Subjective afebrile no leukocytosis for discharge today Objective Vital Signs Last 24 Hour Vital Signs Date Time Temp Pulse Resp B/P (MAP) Pulse Ox O2 Delivery O2 Flow Rate FiO2 06/24/17 11:50 98.1 75 23 117/68 97 Nasal Cannula 2.0 06/24/17 10:57 97.3 06/24/17 08:11 97.3 65 21 100/59 97 Nasal Cannula 2.0 06/24/17 07:35 Nasal Cannula 3.0 32 06/24/17 07:25 71 20 Nasal Cannula 3.0 32 06/24/17 04:19 98.1 80 19 130/70 97 06/24/17 00:23 62 18 98 Nasal Cannula 2.0 28 06/24/17 00:18 69 18 92 Nasal Cannula 3.0 32 06/24/17 00:00 97.9 85 17 107/38 92 06/23/17 20:38 Nasal Cannula 3.0 32 06/23/17 20:38 98.3 77 17 112/49 94 06/23/17 20:36 69 20 Nasal Cannula 3.0 32 Height (Feet): 5 Height (Inches): 3.00 Weight (Pounds): 179 Objective not done as patient already discharged Ange Grant M.D. Jun 24, 2017 17:01
--- NOTE | 2017-06-24 20:19 | Pulmonology Progress Note ---
Assessment/Plan Problems: (1) Respiratory distress (2) CHF exacerbation (3) Atrial fibrillation with RVR (4) COPD exacerbation (5) Fever (6) MELVIN (obstructive sleep apnea) Assessment/Plan no new complains Afebrile Doing better Continue abx PT/OT, Med/surg F/U cardio recommendations DC TO SHORT TERM SNIF Subjective ROS Limited/Unobtainable: No Allergies: Coded Allergies: HALOPERIDOL (Verified Allergy, Unknown, 06/16/17) PREDNISONE (Verified Allergy, Unknown, 06/16/17) Objective Last 24 Hour Vital Signs Date Time Temp Pulse Resp B/P (MAP) Pulse Ox O2 Delivery O2 Flow Rate FiO2 06/24/17 11:50 98.1 75 23 117/68 97 Nasal Cannula 2.0 06/24/17 10:57 97.3 06/24/17 08:11 97.3 65 21 100/59 97 Nasal Cannula 2.0 06/24/17 07:35 Nasal Cannula 3.0 32 06/24/17 07:25 71 20 Nasal Cannula 3.0 32 06/24/17 04:19 98.1 80 19 130/70 97 06/24/17 00:23 62 18 98 Nasal Cannula 2.0 28 06/24/17 00:18 69 18 92 Nasal Cannula 3.0 32 06/24/17 00:00 97.9 85 17 107/38 92 06/23/17 20:38 Nasal Cannula 3.0 32 06/23/17 20:38 98.3 77 17 112/49 94 06/23/17 20:36 69 20 Nasal Cannula 3.0 32 Intake and Output 06/23/17 06/24/17 19:00 07:00 Intake Total 600 ml 240 ml Balance 600 ml 240 ml Intake Oral 600 ml 240 ml # Voids 2 1 General Appearance: WD/WN HEENT: normocephalic, atraumatic Respiratory/Chest: chest wall non-tender, lungs clear Breasts: no masses Cardiovascular: normal peripheral pulses Abdomen: normal bowel sounds, soft, non tender Genitourinary: normal external genitalia Skin: no rash 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
--- NOTE | 2017-06-25 14:38 | Discharge Summary ---
Discharge Summary Hospital Course Date of Admission Jun 16, 2017 at 09:00 Date of Discharge Jun 24, 2017 at 14:00 Admitting Diagnosis DYSPNEA/PNEUMONIA HPI Katiana Gurrola is a 71 year old female who was admitted on Jun 16, 2017 at 09: 00 for Dyspnea/Pneumonia Hospital Course [id number] Discharge Discharge Disposition Patient was discharged to SNF/Subacute Facility(03) Discharge Diagnoses: Marquita Dias NP Jun 25, 2017 14:38
--- NOTE | 2017-06-26 02:45 | Discharge Summary 2 SIG ---
DATE OF ADMISSION: 06/16/2017 DATE OF DISCHARGE: 06/24/2017 CONSULTANTS: 1. Josesito Paulino M.D. 2. Ange Grant M.D. BRIEF HOSPITAL COURSE: The patient is a 71-year-old female with medical history of COPD, schizophrenia, obstructive sleep apnea, on BiPAP, and congestive heart failure, presented from [facility] facility for complaints of shortness of breath and decreased O2 saturation. The patient had O2 saturation on high 80s at the [facility] facility. She was complaining of cough and shortness of breath for the past three days and also had sputum production. On evaluation at ED, the patient was febrile. Temperature was 100.9. Chest x-ray done showed interstitial prominence with central bronchial wall thickening. She was given IV Lasix and breathing treatment. She was also placed on BiPAP. She was found to be in atrial fibrillation with rapid ventricular response. Troponin was 0.052. She was initially started on Cardizem and was admitted to [facility]. She underwent cardiac evaluation with Dr. Paulino. EKG was interpreted as atrial fibrillation although there was clear atrial activity present with viable decrease of NV interval as well as consistent with multifocal atrial tachycardia. Cardizem drip was discontinued. Echocardiogram done showed technically difficult study with LV function not being able to be estimated. There was no evidence of pericardial effusion. Previous ejection fraction 45% to 50%. She was given diuretics. She was continued on BiPAP and was started empirically on Zosyn and Tamiflu. Influenza screen was negative. Zosyn and Tamiflu was discontinued and was given ceftriaxone and Levaquin for possible atypical pneumonia. Blood cultures did not isolate any growth. Sputum culture with normal upper respiratory frank. She had a chest ultrasound done. There was no significant pleural effusion. She received five days of Levaquin and ceftriaxone. She was then taken off antibiotic treatment. She was eventually discharged back to [facility]. FINAL DIAGNOSES: 1. Acute respiratory failure requiring BiPAP possible pneumonia. 2. Acute on chronic systolic and diastolic heart failure. 3. Atrial fibrillation with rapid ventricular response. 4. Acute chronic obstructive pulmonary disease exacerbation. 5. Obstructive sleep apnea. 6. Possible pneumonia. 7. Coronary artery disease. 8. Hypertension. 9. Gastroesophageal reflux disease. 10. Schizophrenia. 11. Multifocal atrial tachycardia. 12. Psychiatric disorder. DISPOSITION: The patient was discharged to [facility]. DISCHARGE MEDICATIONS: Refer to medication list. Fartun Gan M.D. I have been assigned to dictate discharge summary on this account and I was not involved in the patient's management. Marquita Dias N.P. DR: KUMAR JOB#: [id number] CC: DORIS
--- NOTE | 2017-06-26 16:21 | Cardiology Report ---
APPROVED REPORT EKG Measurement Heart [id number] Atrial fibrillation with rapid ventricular response Inferior-posterior infarct, age undetermined Abnormal ECG
== END 2017-06-24 14:00 | DRG 189 ==
LOC: EDBD 07:43 → EDBEDREQ 08:00 → EMR 08:36 → 2W 09:00 → EDBEDREQ 22:26 → 2W 06-17 02:46 → 4E 06-21 13:14
PROC: 5A09457 Assistance with Respiratory Ventilation, 24-96 Consecutive Hours, Continuous Positive Airway Pressure (ICD-10-PCS; principal; 2017-06-16)
DX: J96.01 Acute respiratory failure with hypoxia (principal); I50.43 Acute on chronic combined systolic (congestive) and diastolic (congestive) heart failure; J18.9 Pneumonia, unspecified organism; J44.0 Chronic obstructive pulmonary disease with (acute) lower respiratory infection; J44.1 Chronic obstructive pulmonary disease with (acute) exacerbation; J96.02 Acute respiratory failure with hypercapnia; I48.91 Unspecified atrial fibrillation; F20.9 Schizophrenia, unspecified; G47.33 Obstructive sleep apnea (adult) (pediatric); I25.2 Old myocardial infarction; K21.9 Gastro-esophageal reflux disease without esophagitis; Z23 Encounter for immunization
CPT/HCPCS: 36415; 36600; 71045; 76604; 80048; 80053; 81003; 82803; 83605; 83735; 83880; 84100; 84443; 84484; 85007; 85025; 86140; 86710; 87040; 87070; 87081; 87205; 90630; 93005; 93306; 94640; 94660; 94664; J2405; J7620; J8499

== ENCOUNTER 2017-11-28 16:14 | Inpatient (IN) | payer MEDICARE, MEDICAID ==
[~2017-11-28] VITALS: Ht 162.6 cm; Wt 132.4 kg
[~2017-11-28 16:14] MED LIST: ACETAMINOPHEN325 M1 ORAL; ADVAIR 100-501 EACH INH; DIVALPROEX SOD500 M2 PO; DULCOLAX10 MG RC; DUONEB 0.5-3(2.53 ML HHN; FERROUS SULFAT325 M2 ORAL; FERROUS SULFAT325 MG ORAL; FLEET ENEMA133 M1 RC; FOLIC ACID1 MG ORAL; FUROSEMIDE20 M1 ORAL; HEPARIN SO5000 UNIT2 SUBQ; LACTULOSE20 GM/301 ORAL; LEVOTHYROXINE125 MCG ORAL; LEVOTHYROXINE150 MCG ORAL; LORAZEPAM1 MG ORAL; LYRICA50 MG ORAL; MAG-OXIDE400 M1 PO; METOPROLOL TART25 MG ORAL; MOM30 ML ORAL; NITRO-BID1 GM TOPIC; NITROSTAT0.4 M1 SL; NORCO 10-325 T1 EACH ORAL; NORCO 5-325 TA1 EACH ORAL; NYSTATIN15 GM TOPIC; POTASSIUM CHLO10 ME2 PO; POTASSIUM CHLO10 MEQ ORAL; PROMETHAZINE-C118 M1 ORAL; PROTONIX40 MG ORAL; SENNA LAXATIVE1 EAC1 PO; SENNA-DOCUSATE1 EACH PO; SENNA8.6 M2 PO; TYLENOL EXTRA500 MG ORAL; VENTOLIN HFA18 GM INH; VITAMIN B122500 MCG PO; ZOFRAN ODT4 MG ORAL; ZOFRAN4 M3 ORAL; ZYPREXA2.5 MG ORAL
[2017-11-28 16:16] VITALS: BP 129/78
[2017-11-28] MEDS ORDERED: LEVOTHYROXINE75 MCG ORAL ×2 (16:26→17:56)
[2017-11-28] MEDS ORDERED: DEPAKOTE ER500 MG ORAL (16:26)
[2017-11-28] MEDS ORDERED: SENNA8.6 M2 PO ×2 (16:26→17:56)
[2017-11-28] MEDS ORDERED: [UNRECOGNIZED DRUG - OTHER] PO (16:26)
[2017-11-28] MEDS ORDERED: LOVENOX10 MG SUBQ (16:26)
[2017-11-28] MEDS ORDERED: RISPERDAL2 MG ORAL (16:26)
[2017-11-28] MEDS ORDERED: CARDIZEM60 MG ORAL (16:26)
[2017-11-28] MEDS ORDERED: PREDNISONE5 M4 PO (16:26)
[2017-11-28] MEDS ORDERED: Ipratropium 0.02% Inh Soln 2.5ml UD HHN ONE (17:00)
[2017-11-28] MEDS ORDERED: Albuterol ud Inhalation HHN ONE (17:00)
[2017-11-28] MEDS ORDERED: Ascorbic Acid 500mg tab ORAL ONE (17:00)
[2017-11-28 17:20] LABS: BASOPHILS % (AUTO) 1.8 % (0.0-2.0); HEMATOCRIT 41.4 % (37.0-47.0); HEMOGLOBIN 13.8 G/DL (12.0-16.0); LYMPHOCYTES % (AUTO) 32.6 % (20.0-45.0); MEAN CORPUSCULAR VOLUME 94 FL (80-99); NEUTROPHILS % (AUTO) 56.6 % (45.0-75.0); PLATELET COUNT 201 K/UL (150-450); RED CELL DISTRIBUTION WIDTH 13.1 % (11.6-14.8); WHITE BLOOD COUNT 6.9 K/UL (4.8-10.8)
[2017-11-28 17:33] LABS: ANION GAP 6 mmol/L (5-15); BLOOD UREA NITROGEN 16 mg/dL (7-18); CALCIUM 8.8 MG/DL (8.5-10.1); CARBON DIOXIDE 31 MMOL/L (21-32); CHLORIDE 104 MMOL/L (98-107); CREATININE 0.6 MG/DL (0.55-1.30); POTASSIUM 4.3 MMOL/L (3.5-5.1); SODIUM 141 MMOL/L (136-145)
[2017-11-28 17:35] LABS: INR 0.9 (0.9-1.1)
[2017-11-28] MEDS ORDERED: DIVALPROEX SOD500 MG PO (17:40)
[2017-11-28] MEDS ORDERED: TEMAZEPAM15 MG ORAL (17:42)
[2017-11-28] MEDS ORDERED: LORAZEPAM1 MG ORAL (17:45)
[2017-11-28] MEDS ORDERED: SYNTHROID200 MC1 IV (17:56)
[2017-11-28] MEDS ORDERED: PREDNISONE10 MG ORAL (18:00)
[2017-11-28] MEDS ORDERED: PROMETH-CODEIN 65 ML PO (18:03)
[2017-11-28 18:04] LABS: ALANINE AMINOTRANSFERASE 23 U/L (12-78); ALBUMIN/GLOBULIN RATIO 0.9 (1.0-2.7); ALKALINE PHOSPHATASE 49 U/L (46-116); ASPARTATE AMINO TRANSFERASE 16 U/L (15-37); BILIRUBIN,TOTAL 0.3 MG/DL (0.2-1.0); CKMB 0.5 NG/ML (0.0-3.6); CREATINE KINASE 24 U/L (26-308)
[2017-11-28 18:10] LABS: APPEARANCE,URINE CLEAR; BILIRUBIN, URINE NEGATIVE (NEGATIVE); COLOR,URINE PALE YELLOW; GLUCOSE, URINE (UA) NEGATIVE (NEGATIVE); KETONES,URINE NEGATIVE (NEGATIVE); LEUKOCYTE ESTERASE ,URINE NEGATIVE (NEGATIVE); NITRITE,URINE NEGATIVE (NEGATIVE); PH,URINE 7 (4.5-8.0); PROTEIN,URINE NEGATIVE (NEGATIVE); UROBILINOGEN,URINE NORMAL MG/DL (0.0-1.0)
[2017-11-28] MEDS ORDERED: cefTRIAXone 1 GM in NS 55 ML IVPB ONE (18:15)
[2017-11-28 18:40] VITALS: BP 114/43
[2017-11-28 19:15] VITALS: BP 112/58
--- NOTE | 2017-11-28 19:55 | Emergency Room Report ---
History of Present Illness General Chief Complaint: Edema Source: Patient, Medical Record Present Illness HPI Patient is a 72-year-old female [facility] after increased difficulty breathing for the past 2 weeks. Patient gradual onset of symptoms. Patient was noted to have increased swelling to both legs. Patient recently been taken off of diuretics. Patient reported having some increased discomfort to her right leg as well as increased weeping from the area. Allergies: Coded Allergies: HALOPERIDOL (Verified Allergy, Unknown, 06/16/17) PREDNISONE (Verified Allergy, Unknown, 06/16/17) Patient History Past Medical History: see triage record Reviewed Nursing Documentation: PMH: Agreed; PSxH: Agreed Nursing Documentation-PMH Past Medical History: No History, Except For Hx Cardiac Problems: Yes - Heart Failure Hx Hypertension: Yes Hx COPD: Yes Hx Cancer: No Hx Gastrointestinal Problems: Yes - GERD without Esophagitis Hx Neurological Problems: Yes Hx Peripheral Neuropathy: Yes Review of Systems All Other Systems: negative except mentioned in HPI Physical Exam Vital Signs Date Time Temp Pulse Resp B/P (MAP) Pulse Ox O2 Delivery O2 Flow Rate FiO2 11/28/17 16:12 97.9 100 18 129/78 96 Nasal Cannula 2.0 97.9 11/28/17 17:46 32 Sp02 EP Interpretation: reviewed, normal General Appearance: normal inspection, well appearing, no apparent distress, alert, GCS 15, non-toxic, obese Head: normocephalic, atraumatic ENT: normal ENT inspection, hearing grossly normal, normal voice Neck: normal inspection, full range of motion, supple, no bony tend Respiratory: normal inspection, no respiratory distress, no retraction, wheezing Cardiovascular #1: regular rate, rhythm, edema - 3+ Gastrointestinal: normal inspection, normal bowel sounds, non tender, soft, no guarding, no hernia Genitourinary: no CVA tenderness Musculoskeletal: normal inspection, back normal, normal range of motion Neurologic: normal inspection, alert, oriented x3, responsive, wait staff III-XII nml as tested, speech normal Psychiatric: normal inspection, judgement/insight normal, mood/affect normal Skin: no rash, other - right foot with slight erythema and serous drainage Medical Decision Making Diagnostic Impression: Primary Impression: CHF (congestive heart failure) Additional Impression: COPD (chronic obstructive pulmonary disease) ER Course Patient presented for shortness of breath. Differential included but was not limited to anemia, pneumonia, pneumothorax, myocardial infarction, pericardial effusion, congestive heart failure. Because of complexity of patient's case laboratory testing and imaging studies were ordered.Laboratory studies showed normal white blood count. Patient noted to have some difficulty breathing was given breathing treatment. Given [place] for pain. Dr. Bill Lane was contacted for inpatient management. Labs Test 11/28/17 16:25 11/28/17 17:30 11/28/17 17:38 11/28/17 20:30 White Blood Count 6.9 K/UL (4.8-10.8) Red Blood Count 4.40 M/UL (4.20-5.40) Hemoglobin 13.8 G/DL (12.0-16.0) Hematocrit 41.4 % (37.0-47.0) Mean Corpuscular Volume 94 FL (80-99) Mean Corpuscular Hemoglobin 31.3 PG (27.0-31.0) Mean Corpuscular Hemoglobin Concent 33.3 G/DL (32.0-36.0) Red Cell Distribution Width 13.1 % (11.6-14.8) Platelet Count 201 K/UL (150-450) Mean Platelet Volume 6.1 FL (6.5-10.1) Neutrophils (%) (Auto) 56.6 % (45.0-75.0) Lymphocytes (%) (Auto) 32.6 % (20.0-45.0) Monocytes (%) (Auto) 9.0 % (1.0-10.0) Eosinophils (%) (Auto) 0.0 % (0.0-3.0) Basophils (%) (Auto) 1.8 % (0.0-2.0) Prothrombin Time 9.8 SEC (9.30-11.50) Prothromb Time International Ratio 0.9 (0.9-1.1) Activated Partial Thromboplast Time 25 SEC (23-33) Sodium Level 141 MMOL/L (136-145) Potassium Level 4.3 MMOL/L (3.5-5.1) Chloride Level 104 MMOL/L (98-107) Carbon Dioxide Level 31 MMOL/L (21-32) Anion Gap 6 mmol/L (5-15) Blood Urea Nitrogen 16 mg/dL (7-18) Creatinine 0.6 MG/DL (0.55-1.30) Estimat Glomerular Filtration Rate mL/min (>60) Glucose Level 105 MG/DL (74-106) Calcium Level 8.8 MG/DL (8.5-10.1) Total Bilirubin 0.3 MG/DL (0.2-1.0) Aspartate Amino Transf (AST/SGOT) 16 U/L (15-37) Alanine Aminotransferase (ALT/SGPT) 23 U/L (12-78) Alkaline Phosphatase 49 U/L (46-116) Total Creatine Kinase 24 U/L (26-308) Creatine Kinase MB 0.5 NG/ML (0.0-3.6) Creatine Kinase MB Relative Index 2.0 C-Reactive Protein, Quantitative < 0.4 mg/dL (0.00-0.90) Pro-B-Type Natriuretic Peptide 132 pg/mL (0-125) Total Protein 6.4 G/DL (6.4-8.2) Albumin 3.0 G/DL (3.4-5.0) Globulin 3.4 g/dL Albumin/Globulin Ratio 0.9 (1.0-2.7) Urine Color Pale yellow Urine Appearance Clear Urine pH 7 (4.5-8.0) Urine Specific [place] 1.010 (1.005-1.035) Urine Protein Negative (NEGATIVE) Urine Glucose (UA) Negative (NEGATIVE) Urine Ketones Negative (NEGATIVE) Urine Occult Blood Negative (NEGATIVE) Urine Nitrite Negative (NEGATIVE) Urine Bilirubin Negative (NEGATIVE) Urine Urobilinogen Normal MG/DL (0.0-1.0) Urine Leukocyte Esterase Negative (NEGATIVE) Lactic Acid Level 1.00 mmol/L (0.4-2.0) EKG Diagnostic Results Rate: normal Rhythm: NSR ST Segments: no acute changes Last Vital Signs Date Time Temp Pulse Resp B/P (MAP) Pulse Ox O2 Delivery O2 Flow Rate FiO2 11/28/17 18:40 97.9 100 21 114/43 100 Nasal Cannula 3.0 32 97.9 Status: unchanged Disposition: ADMITTED INPATIENT Condition: Serious Referrals: Bill Lane DO (PCP) Quinten Lovett MD Nov 28, 2017 19:55
[2017-11-28] MEDS ORDERED: Norco 5mg/325mg tab ORAL ONE (20:00)
[2017-11-28] MEDS ORDERED: HYDROcodone/Acetamin 10/325 tab ORAL PRN (20:15)
[2017-11-28] MEDS ORDERED: Miralax 17gm pkt ORAL PRN (20:15)
[2017-11-28 20:39] VITALS: BP 110/56
[2017-11-28] MEDS: Depakote 500mg tab ORAL SCH (21:31)
[2017-11-28] MEDS: dilTIAZem HCl 60mg tab ORAL SCH (21:31)
[2017-11-28] MEDS: Heparin 5000 units/ml inj SUBQ SCH (21:34)
[2017-11-28] MEDS: Ketorolac 30mg Inj IV PRN (22:52)
[2017-11-29] VITALS: BP 110/46
[2017-11-29] MEDS: Albuterol/Ipratropium 3ml neb HHN PRN ×2 (00:41→13:18)
[2017-11-29 04:00] VITALS: BP 108/51
[2017-11-29 06:29] LABS: BASOPHILS % (AUTO) 1.6 % (0.0-2.0); EOSINOPHILS % (AUTO) 1.4 % (0.0-3.0); HEMATOCRIT 39.7 % (37.0-47.0); HEMOGLOBIN 12.8 G/DL (12.0-16.0); LYMPHOCYTES % (AUTO) 34.2 % (20.0-45.0); MEAN CORPUSCULAR VOLUME 95 FL (80-99); MONOCYTES % (AUTO) 10.2 % (1.0-10.0); NEUTROPHILS % (AUTO) 52.6 % (45.0-75.0); PLATELET COUNT 198 K/UL (150-450); RED BLOOD COUNT 4.19 M/UL (4.20-5.40); RED CELL DISTRIBUTION WIDTH 12.8 % (11.6-14.8); WHITE BLOOD COUNT 7.1 K/UL (4.8-10.8)
[2017-11-29] MEDS: Levothyroxine 25mcg tab ORAL SCH (06:44)
[2017-11-29] MEDS: dilTIAZem HCl 60mg tab ORAL SCH ×3 (06:44→21:24)
[2017-11-29 06:48] LABS: ANION GAP 2 mmol/L (5-15); CARBON DIOXIDE 38 MMOL/L (21-32); CHLORIDE 103 MMOL/L (98-107); PHOSPHORUS 5.1 MG/DL (2.5-4.9); POTASSIUM 3.7 MMOL/L (3.5-5.1); SODIUM 143 MMOL/L (136-145)
[2017-11-29 06:49] LABS: ALBUMIN 2.6 G/DL (3.4-5.0); BLOOD UREA NITROGEN 19 mg/dL (7-18); CREATININE 0.8 MG/DL (0.55-1.30)
[2017-11-29 08:00] VITALS: BP 100/50
[2017-11-29] MEDS: Depakote 500mg tab ORAL SCH ×2 (08:13→21:14)
[2017-11-29] MEDS: Ketorolac 30mg Inj IV PRN ×3 (08:15→21:21)
[2017-11-29] MEDS: Heparin 5000 units/ml inj SUBQ SCH ×2 (08:16→21:17)
--- NOTE | 2017-11-29 11:37 | Consultation ---
History of Present Illness General Date patient seen: Nov 29, 2017 Chief Complaint: Edema Present Illness HPI 72 y/o F with hx of CHF, CAD/PA, schizophrenia, GERD, peripheral neuropathy, HTN , COPD presents to ED on 11/28 with increasing SOB, LE edema for 2 weeks. + R leg discomfort and weeping. OF note, recently taken off diuretics. Of note, patient admitted here on June 16-2017 with SOB, hypoxia, cough- found to have acute hypoxic and hypercapneic resp failure and PNA. Allergies: Coded Allergies: HALOPERIDOL (Verified Allergy, Unknown, 06/16/17) Medication History Scheduled Diltiazem Hcl* (Cardizem*), 60 MG ORAL EVERY 8 HOURS, (Reported) Divalproex Sodium (Divalproex Sodium), 500 MG PO BID, (Reported) Enoxaparin* (Lovenox*), 30 MG SUBQ DAILY, (Reported) Heparin Sod (Porcine) (Heparin Sodium*), 5,000 UNITS SUBQ EVERY 12 HOURS, ( Reported) Levothyroxine Sodium (Levothyroxine Sodium), 25 MCG IV DAILY, (Reported) Levothyroxine Sodium* (Levothyroxine Sodium*), 25 MCG ORAL DAILY, (Reported) Levothyroxine Sodium* (Levothyroxine Sodium*), 75 MCG ORAL DAILY, (Reported) Prednisone* (Prednisone*), 30 MG ORAL DAILY, (Reported) Risperidone* (Risperdal*), 2 MG ORAL DAILY, (Reported) Sennosides (Senna), 17.2 MG PO QHS, (Reported) [riperidone], 4 MG PO HS, (Reported) Scheduled PRN Acetaminophen* (Tylenol Extra Strength*), 650 MG ORAL Q4HR PRN for Mild Pain ( Pain Scale 1-3), (Reported) Acetaminophen* (Acetaminophen 325MG Tablet*), 650 MG ORAL Q4H PRN for TEMP <101, (Reported) Hydrocodone Bit/Acetaminophen 10-325* (Norman 10-325*), 1 TAB ORAL Q4H PRN for For Pain, (Reported) Lorazepam* (Lorazepam*), 1 MG ORAL Q6HR PRN for For Anxiety, (Reported) Nitroglycerin (Nitrostat), 0.4 MG SL Q5M X3 DOSES PRN for CHEST PAIN, (Reported) Ondansetron Odt* (Zofran Odt*), 4 MG ORAL Q6H PRN for Nausea & Vomiting, ( Reported) Promethazine HCl/Codeine (Prometh-Codein 6.25-10 mg/5 ml), 10 ML PO Q8HR PRN for For Cough, (Reported) Temazepam (Temazepam*), 15 MG ORAL BEDTIME PRN for Insomnia, (Reported) Miscellaneous Medications Ipratropium/Albuterol Sulfate (DuoNeb 0.5-3(2.5)mg/3ml), 3 ML HHN, (Reported) Patient History Healthcare decision maker Samir Doyle Resuscitation status Full Code Advanced Directive on File Patient History Narrative Pmhx: as above Shx: reviewed Fhx: non contributory Review of Systems All Other Systems: negative except mentioned in HPI Physical Exam Physical Exam Narrative General Appearance: normal inspection, well appearing, no apparent distress, alert, GCS 15, non-toxic, obese HEENT: normocephalic, atraumatic, normal ENT inspection Neck: normal inspection, full range of motion, supple, no bony tend Respiratory: normal inspection, no respiratory distress, no retraction, wheezing Cardiovascular : regular rate, rhythm, edema - 3+ Gastrointestinal: normal inspection, normal bowel sounds, non tender, soft, no guarding, no hernia Genitourinary: no CVA tenderness Musculoskeletal: normal inspection, back normal, normal range of motion Skin: no rash, other - right foot with slight erythema and serous drainage Last 24 Hour Vital Signs Date Time Temp Pulse Resp B/P (MAP) Pulse Ox O2 Delivery O2 Flow Rate FiO2 11/29/17 08:45 97.8 11/29/17 08:15 97.8 11/29/17 08:00 98.6 89 18 100/50 95 Nasal Cannula 3.0 32 98.6 11/29/17 06:44 103 108/51 11/29/17 04:00 103 11/29/17 04:00 97.8 78 18 108/51 95 Nasal Cannula 3.0 32 97.8 11/29/17 00:51 85 20 99 Nasal Cannula 3.0 32 11/29/17 00:41 88 20 97 Nasal Cannula 3.0 32 11/29/17 00:00 72 11/29/17 00:00 97.9 85 18 110/46 100 Nasal Cannula 3.0 32 97.9 11/28/17 21:31 100 114/43 11/28/17 20:50 97.8 85 18 110/56 100 Nasal Cannula 3.0 32 208.0 11/28/17 20:39 85 18 110/56 100 Nasal Cannula 3.0 32 11/28/17 20:05 Nasal Cannula 3.0 32 11/28/17 20:05 85 20 Nasal Cannula 3.0 32 11/28/17 20:05 97 Nasal Cannula 3.0 32 11/28/17 20:00 97.8 11/28/17 19:15 98.0 97 18 112/58 100 Nasal Cannula 3.0 32 98.0 11/28/17 18:40 97.9 100 21 114/43 100 Nasal Cannula 3.0 32 97.9 11/28/17 17:46 91 21 Nasal Cannula 3.0 32 11/28/17 17:46 91 21 100 Nasal Cannula 3.0 32 11/28/17 17:09 96 12 Nasal Cannula 2.0 11/28/17 16:16 97.9 100 18 129/78 96 Nasal Cannula 2.0 97.9 11/28/17 16:12 97.9 100 18 129/78 96 Nasal Cannula 2.0 97.9 Intake and Output 11/28/17 11/29/17 19:00 07:00 Intake Total 55 ml Output Total 1500 ml 3000 ml Balance -1445 ml -3000 ml Intake IV Total 55 ml Output Urine Total 1500 ml 3000 ml # Bowel Movements 1 Laboratory Tests Test 11/28/17 16:25 11/28/17 17:30 11/28/17 17:38 11/28/17 20:30 White Blood Count 6.9 K/UL (4.8-10.8) Red Blood Count 4.40 M/UL (4.20-5.40) Hemoglobin 13.8 G/DL (12.0-16.0) Hematocrit 41.4 % (37.0-47.0) Mean Corpuscular Volume 94 FL (80-99) Mean Corpuscular Hemoglobin 31.3 PG (27.0-31.0) H Mean Corpuscular Hemoglobin Concent 33.3 G/DL (32.0-36.0) Red Cell Distribution Width 13.1 % (11.6-14.8) Platelet Count 201 K/UL (150-450) Mean Platelet Volume 6.1 FL (6.5-10.1) L Neutrophils (%) (Auto) 56.6 % (45.0-75.0) Lymphocytes (%) (Auto) 32.6 % (20.0-45.0) Monocytes (%) (Auto) 9.0 % (1.0-10.0) Eosinophils (%) (Auto) 0.0 % (0.0-3.0) Basophils (%) (Auto) 1.8 % (0.0-2.0) Prothrombin Time 9.8 SEC (9.30-11.50) Prothromb Time International Ratio 0.9 (0.9-1.1) Activated Partial Thromboplast Time 25 SEC (23-33) Sodium Level 141 MMOL/L (136-145) Potassium Level 4.3 MMOL/L (3.5-5.1) Chloride Level 104 MMOL/L (98-107) Carbon Dioxide Level 31 MMOL/L (21-32) Anion Gap 6 mmol/L (5-15) Blood Urea Nitrogen 16 mg/dL (7-18) Creatinine 0.6 MG/DL (0.55-1.30) Estimat Glomerular Filtration Rate mL/min (>60) Glucose Level 105 MG/DL (74-106) Calcium Level 8.8 MG/DL (8.5-10.1) Total Bilirubin 0.3 MG/DL (0.2-1.0) Aspartate Amino Transf (AST/SGOT) 16 U/L (15-37) Alanine Aminotransferase (ALT/SGPT) 23 U/L (12-78) Alkaline Phosphatase 49 U/L (46-116) Total Creatine Kinase 24 U/L (26-308) L Creatine Kinase MB 0.5 NG/ML (0.0-3.6) Creatine Kinase MB Relative Index 2.0 Troponin I 0.000 ng/mL (0.000-0.056) 0.000 ng/mL (0.000-0.056) C-Reactive Protein, Quantitative < 0.4 mg/dL (0.00-0.90) Pro-B-Type Natriuretic Peptide 132 pg/mL (0-125) H Total Protein 6.4 G/DL (6.4-8.2) Albumin 3.0 G/DL (3.4-5.0) L Globulin 3.4 g/dL Albumin/Globulin Ratio 0.9 (1.0-2.7) L Urine Color Pale yellow Urine Appearance Clear Urine pH 7 (4.5-8.0) Urine Specific [place] 1.010 (1.005-1.035) Urine Protein Negative (NEGATIVE) Urine Glucose (UA) Negative (NEGATIVE) Urine Ketones Negative (NEGATIVE) Urine Occult Blood Negative (NEGATIVE) Urine Nitrite Negative (NEGATIVE) Urine Bilirubin Negative (NEGATIVE) Urine Urobilinogen Normal MG/DL (0.0-1.0) Urine Leukocyte Esterase Negative (NEGATIVE) Lactic Acid Level 1.00 mmol/L (0.4-2.0) Test 11/29/17 05:25 White Blood Count 7.1 K/UL (4.8-10.8) Red Blood Count 4.19 M/UL (4.20-5.40) L Hemoglobin 12.8 G/DL (12.0-16.0) Hematocrit 39.7 % (37.0-47.0) Mean Corpuscular Volume 95 FL (80-99) Mean Corpuscular Hemoglobin 30.5 PG (27.0-31.0) Mean Corpuscular Hemoglobin Concent 32.2 G/DL (32.0-36.0) Red Cell Distribution Width 12.8 % (11.6-14.8) Platelet Count 198 K/UL (150-450) Mean Platelet Volume 6.3 FL (6.5-10.1) L Neutrophils (%) (Auto) 52.6 % (45.0-75.0) Lymphocytes (%) (Auto) 34.2 % (20.0-45.0) Monocytes (%) (Auto) 10.2 % (1.0-10.0) H Eosinophils (%) (Auto) 1.4 % (0.0-3.0) Basophils (%) (Auto) 1.6 % (0.0-2.0) Sodium Level 143 MMOL/L (136-145) Potassium Level 3.7 MMOL/L (3.5-5.1) Chloride Level 103 MMOL/L (98-107) Carbon Dioxide Level 38 MMOL/L (21-32) H Anion Gap 2 mmol/L (5-15) L Blood Urea Nitrogen 19 mg/dL (7-18) H Creatinine 0.8 MG/DL (0.55-1.30) Estimat Glomerular Filtration Rate mL/min (>60) Glucose Level 84 MG/DL (74-106) Calcium Level 8.0 MG/DL (8.5-10.1) L Phosphorus Level 5.1 MG/DL (2.5-4.9) H Troponin I 0.000 ng/mL (0.000-0.056) Albumin 2.6 G/DL (3.4-5.0) L Height (Feet): 5 Height (Inches): 4.00 Weight (Pounds): 260 Medications Current Medications Medications (Trade) Dose Ordered Sig/Marleni Route PRN Reason Start Time Stop Time Status Last Admin Dose Admin Acetaminophen (Tylenol) 650 mg Q4H PRN ORAL Fever 11/28/17 20:15 12/28/17 20:14 11/29/17 04:00 Acetaminophen/ Hydrocodone Bitart (Norm[place] 10/325) 1 tab Q4H PRN ORAL For Pain 11/28/17 20:15 12/05/17 20:14 Albuterol/ Ipratropium (Albuterol/ Ipratropium) 3 ml Q4H PRN HHN Shortness of Breath 11/28/17 20:15 12/03/17 20:14 11/29/17 00:41 Dextrose (Dextrose 50%) STAT PRN IV Hypoglycemia 11/28/17 20:15 12/28/17 20:14 Diltiazem HCl (Cardizem) 60 mg EVERY 8 HOURS ORAL 11/28/17 22:00 12/28/17 21:59 11/29/17 06:44 Divalproex Sodium (Depakote) 500 mg Q12HR ORAL 11/28/17 21:00 12/28/17 20:59 11/29/17 08:13 Furosemide (Lasix) 40 mg EVERY 8 HOURS IV 11/28/17 22:00 12/28/17 21:59 11/29/17 06:44 Heparin Sodium (Porcine) (Heparin 5000 units/ml) 5,000 units EVERY 12 HOURS SUBQ 11/28/17 21:00 12/28/17 20:59 11/29/17 08:16 Ketorolac Tromethamine (Toradol 30mg) 15 mg Q6H PRN IV For severe pain >7 11/28/17 22:30 12/03/17 22:29 11/29/17 08:15 Levothyroxine Sodium (Synthroid) 25 mcg ACBREAKFAST ORAL 11/29/17 06:30 12/29/17 06:29 11/29/17 06:44 Ondansetron HCl (Zofran) 4 mg Q6H PRN IVP Nausea & Vomiting 11/28/17 20:15 12/28/17 20:14 Ondansetron HCl (Zofran) 4 mg Q6H PRN IVP Nausea & Vomiting 11/28/17 20:15 12/28/17 20:14 Polyethylene Glycol (Miralax) 17 gm DAILYPRN PRN ORAL Constipation 11/28/17 20:15 12/28/17 20:14 Risperidone (RisperDAL) 2 mg DAILY ORAL 11/29/17 09:00 12/29/17 08:59 11/29/17 08:13 Temazepam (Restoril) 15 mg HSPRN PRN ORAL Insomnia 11/28/17 20:15 12/05/17 20:14 11/29/17 02:25 Assessment/Plan Assessment/Plan Abx: Ceftriaxone x1 11/28 Assessment: SOB CHF exacerbation -CXR: Cardiomegaly with pulmonary vascular congestion/mild interstitial edema. B/l LE edema- no cellulitis at present Afebrile, no leukocytosis hx of acute resp failure and PNA 06/2017 -sp cx normal frank CHF GERD peripheral neuropathy HTN COPD CAD/PA schizophrenia Plan: -Continue to monitor off abx 06/23 SP Levaquin #5 06/22 SP Ceftriaxone #5 06/18/17 SP Zosyn #3 and Tamiflu #2 -f/u cx -Monitor CBC/CMP, temperatures -aspiration precautions -f/u v duplex Thank you for this consultation. Will continue to follow along with you. Discussed with Ange Salamanca M.D. Nov 29, 2017 11:37
[2017-11-29 12:00] VITALS: BP 100/63
--- NOTE | 2017-11-29 12:25 | Consultation ---
History of Present Illness General Date patient seen: Nov 29, 2017 Chief Complaint: Edema Present Illness HPI 72-year-old female with hx of CHF, COPD, morbid obesity, hypothyroid, [facility] of increased difficulty breathing for the past 2 weeks wtih gradual onset of symptoms. She has recently been taken off of diuretics. Patient reported having some increased discomfort to her right leg as well as increased weeping from the area. She is diagnosed to have decompensated heart failure and admitted to telemetry for further management. she is sitting up in the chair, seems slightly SOB. no cough or fever reported. Allergies: Coded Allergies: HALOPERIDOL (Verified Allergy, Unknown, 06/16/17) Medication History Scheduled Diltiazem Hcl* (Cardizem*), 60 MG ORAL EVERY 8 HOURS, (Reported) Divalproex Sodium (Divalproex Sodium), 500 MG PO BID, (Reported) Enoxaparin* (Lovenox*), 30 MG SUBQ DAILY, (Reported) Heparin Sod (Porcine) (Heparin Sodium*), 5,000 UNITS SUBQ EVERY 12 HOURS, ( Reported) Levothyroxine Sodium (Levothyroxine Sodium), 25 MCG IV DAILY, (Reported) Levothyroxine Sodium* (Levothyroxine Sodium*), 25 MCG ORAL DAILY, (Reported) Levothyroxine Sodium* (Levothyroxine Sodium*), 75 MCG ORAL DAILY, (Reported) Prednisone* (Prednisone*), 30 MG ORAL DAILY, (Reported) Risperidone* (Risperdal*), 2 MG ORAL DAILY, (Reported) Sennosides (Senna), 17.2 MG PO QHS, (Reported) [riperidone], 4 MG PO HS, (Reported) Scheduled PRN Acetaminophen* (Tylenol Extra Strength*), 650 MG ORAL Q4HR PRN for Mild Pain ( Pain Scale 1-3), (Reported) Acetaminophen* (Acetaminophen 325MG Tablet*), 650 MG ORAL Q4H PRN for TEMP <101, (Reported) Hydrocodone Bit/Acetaminophen 10-325* ([place] 10-325*), 1 TAB ORAL Q4H PRN for For Pain, (Reported) Lorazepam* (Lorazepam*), 1 MG ORAL Q6HR PRN for For Anxiety, (Reported) Nitroglycerin (Nitrostat), 0.4 MG SL Q5M X3 DOSES PRN for CHEST PAIN, (Reported) Ondansetron Odt* (Zofran Odt*), 4 MG ORAL Q6H PRN for Nausea & Vomiting, ( Reported) Promethazine HCl/Codeine (Prometh-Codein 6.25-10 mg/5 ml), 10 ML PO Q8HR PRN for For Cough, (Reported) Temazepam (Temazepam*), 15 MG ORAL BEDTIME PRN for Insomnia, (Reported) Miscellaneous Medications Ipratropium/Albuterol Sulfate (DuoNeb 0.5-3(2.5)mg/3ml), 3 ML HHN, (Reported) Patient History Healthcare decision maker Samir Doyle Resuscitation status Full Code Advanced Directive on File Past Medical/Surgical History Past Medical/Surgical History: (1) MELVIN (obstructive sleep apnea) (2) COPD (chronic obstructive pulmonary disease) (3) CHF (congestive heart failure) Review of Systems All Other Systems: negative except mentioned in HPI Physical Exam General Appearance: morbidly obese Lines, tubes and drains: peripheral HEENT: normocephalic, atraumatic Neck: non-tender, normal alignment Respiratory/Chest: rhonchi - left, rhonchi - right Cardiovascular/Chest: normal rate Abdomen: normal bowel sounds, non tender Genitourinary/Rectal: normal genital exam, normal rectal exam Extremities: severe edema Skin Exam: rash 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 II-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 grossly normal Last 24 Hour Vital Signs Date Time Temp Pulse Resp B/P (MAP) Pulse Ox O2 Delivery O2 Flow Rate FiO2 11/29/17 08:45 97.8 11/29/17 08:15 97.8 11/29/17 08:00 98.6 89 18 100/50 95 Nasal Cannula 3.0 32 98.6 11/29/17 06:44 103 108/51 11/29/17 04:00 103 11/29/17 04:00 97.8 78 18 108/51 95 Nasal Cannula 3.0 32 97.8 11/29/17 00:51 85 20 99 Nasal Cannula 3.0 32 11/29/17 00:41 88 20 97 Nasal Cannula 3.0 32 11/29/17 00:00 72 11/29/17 00:00 97.9 85 18 110/46 100 Nasal Cannula 3.0 32 97.9 11/28/17 21:31 100 114/43 11/28/17 20:50 97.8 85 18 110/56 100 Nasal Cannula 3.0 32 208.0 11/28/17 20:39 85 18 110/56 100 Nasal Cannula 3.0 32 11/28/17 20:05 Nasal Cannula 3.0 32 11/28/17 20:05 85 20 Nasal Cannula 3.0 32 11/28/17 20:05 97 Nasal Cannula 3.0 32 11/28/17 20:00 97.8 11/28/17 19:15 98.0 97 18 112/58 100 Nasal Cannula 3.0 32 98.0 11/28/17 18:40 97.9 100 21 114/43 100 Nasal Cannula 3.0 32 97.9 11/28/17 17:46 91 21 Nasal Cannula 3.0 32 11/28/17 17:46 91 21 100 Nasal Cannula 3.0 32 11/28/17 17:09 96 12 Nasal Cannula 2.0 11/28/17 16:16 97.9 100 18 129/78 96 Nasal Cannula 2.0 97.9 11/28/17 16:12 97.9 100 18 129/78 96 Nasal Cannula 2.0 97.9 Intake and Output 11/28/17 11/29/17 19:00 07:00 Intake Total 55 ml Output Total 1500 ml 3000 ml Balance -1445 ml -3000 ml Intake IV Total 55 ml Output Urine Total 1500 ml 3000 ml # Bowel Movements 1 Laboratory Tests Test 11/28/17 16:25 11/28/17 17:30 11/28/17 17:38 11/28/17 20:30 White Blood Count 6.9 K/UL (4.8-10.8) Red Blood Count 4.40 M/UL (4.20-5.40) Hemoglobin 13.8 G/DL (12.0-16.0) Hematocrit 41.4 % (37.0-47.0) Mean Corpuscular Volume 94 FL (80-99) Mean Corpuscular Hemoglobin 31.3 PG (27.0-31.0) H Mean Corpuscular Hemoglobin Concent 33.3 G/DL (32.0-36.0) Red Cell Distribution Width 13.1 % (11.6-14.8) Platelet Count 201 K/UL (150-450) Mean Platelet Volume 6.1 FL (6.5-10.1) L Neutrophils (%) (Auto) 56.6 % (45.0-75.0) Lymphocytes (%) (Auto) 32.6 % (20.0-45.0) Monocytes (%) (Auto) 9.0 % (1.0-10.0) Eosinophils (%) (Auto) 0.0 % (0.0-3.0) Basophils (%) (Auto) 1.8 % (0.0-2.0) Prothrombin Time 9.8 SEC (9.30-11.50) Prothromb Time International Ratio 0.9 (0.9-1.1) Activated Partial Thromboplast Time 25 SEC (23-33) Sodium Level 141 MMOL/L (136-145) Potassium Level 4.3 MMOL/L (3.5-5.1) Chloride Level 104 MMOL/L (98-107) Carbon Dioxide Level 31 MMOL/L (21-32) Anion Gap 6 mmol/L (5-15) Blood Urea Nitrogen 16 mg/dL (7-18) Creatinine 0.6 MG/DL (0.55-1.30) Estimat Glomerular Filtration Rate mL/min (>60) Glucose Level 105 MG/DL (74-106) Calcium Level 8.8 MG/DL (8.5-10.1) Total Bilirubin 0.3 MG/DL (0.2-1.0) Aspartate Amino Transf (AST/SGOT) 16 U/L (15-37) Alanine Aminotransferase (ALT/SGPT) 23 U/L (12-78) Alkaline Phosphatase 49 U/L (46-116) Total Creatine Kinase 24 U/L (26-308) L Creatine Kinase MB 0.5 NG/ML (0.0-3.6) Creatine Kinase MB Relative Index 2.0 Troponin I 0.000 ng/mL (0.000-0.056) 0.000 ng/mL (0.000-0.056) C-Reactive Protein, Quantitative < 0.4 mg/dL (0.00-0.90) Pro-B-Type Natriuretic Peptide 132 pg/mL (0-125) H Total Protein 6.4 G/DL (6.4-8.2) Albumin 3.0 G/DL (3.4-5.0) L Globulin 3.4 g/dL Albumin/Globulin Ratio 0.9 (1.0-2.7) L Urine Color Pale yellow Urine Appearance Clear Urine pH 7 (4.5-8.0) Urine Specific [place] 1.010 (1.005-1.035) Urine Protein Negative (NEGATIVE) Urine Glucose (UA) Negative (NEGATIVE) Urine Ketones Negative (NEGATIVE) Urine Occult Blood Negative (NEGATIVE) Urine Nitrite Negative (NEGATIVE) Urine Bilirubin Negative (NEGATIVE) Urine Urobilinogen Normal MG/DL (0.0-1.0) Urine Leukocyte Esterase Negative (NEGATIVE) Lactic Acid Level 1.00 mmol/L (0.4-2.0) Test 11/29/17 05:25 White Blood Count 7.1 K/UL (4.8-10.8) Red Blood Count 4.19 M/UL (4.20-5.40) L Hemoglobin 12.8 G/DL (12.0-16.0) Hematocrit 39.7 % (37.0-47.0) Mean Corpuscular Volume 95 FL (80-99) Mean Corpuscular Hemoglobin 30.5 PG (27.0-31.0) Mean Corpuscular Hemoglobin Concent 32.2 G/DL (32.0-36.0) Red Cell Distribution Width 12.8 % (11.6-14.8) Platelet Count 198 K/UL (150-450) Mean Platelet Volume 6.3 FL (6.5-10.1) L Neutrophils (%) (Auto) 52.6 % (45.0-75.0) Lymphocytes (%) (Auto) 34.2 % (20.0-45.0) Monocytes (%) (Auto) 10.2 % (1.0-10.0) H Eosinophils (%) (Auto) 1.4 % (0.0-3.0) Basophils (%) (Auto) 1.6 % (0.0-2.0) Sodium Level 143 MMOL/L (136-145) Potassium Level 3.7 MMOL/L (3.5-5.1) Chloride Level 103 MMOL/L (98-107) Carbon Dioxide Level 38 MMOL/L (21-32) H Anion Gap 2 mmol/L (5-15) L Blood Urea Nitrogen 19 mg/dL (7-18) H Creatinine 0.8 MG/DL (0.55-1.30) Estimat Glomerular Filtration Rate mL/min (>60) Glucose Level 84 MG/DL (74-106) Calcium Level 8.0 MG/DL (8.5-10.1) L Phosphorus Level 5.1 MG/DL (2.5-4.9) H Troponin I 0.000 ng/mL (0.000-0.056) Albumin 2.6 G/DL (3.4-5.0) L Height (Feet): 5 Height (Inches): 4.00 Weight (Pounds): 260 Medications Current Medications Medications (Trade) Dose Ordered Sig/Marleni Route PRN Reason Start Time Stop Time Status Last Admin Dose Admin Acetaminophen (Tylenol) 650 mg Q4H PRN ORAL Fever 11/28/17 20:15 12/28/17 20:14 11/29/17 04:00 Acetaminophen/ Hydrocodone Bitart ([place] 10/325) 1 tab Q4H PRN ORAL For Pain 11/28/17 20:15 12/05/17 20:14 Albuterol/ Ipratropium (Albuterol/ Ipratropium) 3 ml Q4H PRN HHN Shortness of Breath 11/28/17 20:15 12/03/17 20:14 11/29/17 00:41 Dextrose (Dextrose 50%) STAT PRN IV Hypoglycemia 11/28/17 20:15 12/28/17 20:14 Diltiazem HCl (Cardizem) 60 mg EVERY 8 HOURS ORAL 11/28/17 22:00 12/28/17 21:59 11/29/17 06:44 Divalproex Sodium (Depakote) 500 mg Q12HR ORAL 11/28/17 21:00 12/28/17 20:59 11/29/17 08:13 Furosemide (Lasix) 40 mg EVERY 8 HOURS IV 11/28/17 22:00 12/28/17 21:59 11/29/17 06:44 Heparin Sodium (Porcine) (Heparin 5000 units/ml) 5,000 units EVERY 12 HOURS SUBQ 11/28/17 21:00 12/28/17 20:59 11/29/17 08:16 Ketorolac Tromethamine (Toradol 30mg) 15 mg Q6H PRN IV For severe pain >7 11/28/17 22:30 12/03/17 22:29 11/29/17 08:15 Levothyroxine Sodium (Synthroid) 25 mcg ACBREAKFAST ORAL 11/29/17 06:30 12/29/17 06:29 11/29/17 06:44 Ondansetron HCl (Zofran) 4 mg Q6H PRN IVP Nausea & Vomiting 11/28/17 20:15 12/28/17 20:14 Ondansetron HCl (Zofran) 4 mg Q6H PRN IVP Nausea & Vomiting 11/28/17 20:15 12/28/17 20:14 Polyethylene Glycol (Miralax) 17 gm DAILYPRN PRN ORAL Constipation 11/28/17 20:15 12/28/17 20:14 Risperidone (RisperDAL) 2 mg DAILY ORAL 11/29/17 09:00 12/29/17 08:59 11/29/17 08:13 Temazepam (Restoril) 15 mg HSPRN PRN ORAL Insomnia 11/28/17 20:15 12/05/17 20:14 11/29/17 02:25 Assessment/Plan Problem List: (1) COPD (chronic obstructive pulmonary disease) ICD Codes: J44.9 - Chronic obstructive pulmonary disease, unspecified SNOMED: 99076199 (2) Peripheral edema ICD Codes: R60.9 - Edema, unspecified SNOMED: 416869015 (3) CHF (congestive heart failure) ICD Codes: I50.9 - Heart failure, unspecified SNOMED: 23285615 (4) Cellulitis ICD Codes: L03.90 - Cellulitis, unspecified SNOMED: 887849849 (5) MELVIN (obstructive sleep apnea) ICD Codes: G47.33 - Obstructive sleep apnea (adult) (pediatric) SNOMED: 13316246 Assessment/Plan respiratory treatment venous doppler of legs diuretics check echo IV abx and ID evaluation dvt prophylaxis monitor heart rate. Fartun Gan MD Nov 29, 2017 12:25
--- NOTE | 2017-11-29 12:29 | Cardiology Report ---
APPROVED REPORT EKG Measurement Heart [id number] Sinus rhythm with premature atrial complexes Otherwise normal ECG
[2017-11-29 16:00] VITALS: BP 95/56
--- NOTE | 2017-11-29 17:55 | Diagnostic Imaging Report ---
Indication: Dyspnea Comparison: 06/21/2017 A single view chest radiograph was obtained. Findings: Stable cardiomegaly. There is pulmonary vascular congestion/mild interstitial edema. No definite focal airspace consolidation, pleural effusion or pneumothorax. Degenerative changes of the spine. No acute osseous abnormality. IMPRESSION: Cardiomegaly with pulmonary vascular congestion/mild interstitial edema. Study obtained via the emergency department however patient admitted to the hospital at time of dictation of the final report.
--- NOTE | 2017-11-29 19:15 | History and Physical Report ---
DATE OF ADMISSION: 11/28/2017 CONSULTANTS: 1. Fartun Gan M.D. 2. Iván Bernstein M.D. 3. Jose Daniel Rico M.D. 4. Beni Hicks M.D. CHIEF COMPLAINT: Chest pain, wheeze, bilateral extremity edema, back pain, and leg pain. BRIEF HISTORY: This is a 72-year-old female from [facility] presented with the above-mentioned diagnosis, chest pain, substernal, no radiation, no loss of consciousness, intermittent. The patient came in; diagnosed with chest pain, wheeze and bilateral lower extremity edema; admitted to telemetry for further care. Currently calm, O2 NC, slight short of breath in bed, complains of slight general pain 6/10. No complaints otherwise. REVIEW OF SYSTEMS: Slight chest pain. Slight short of breath. No nausea, vomiting, or diarrhea. PAST MEDICAL HISTORY: Edema, obesity, leg pain, back pain, and hypertension. PAST SURGICAL HISTORY: Gallbladder, appendectomy, hysterectomy, thyroid. ALLERGIES: Haldol. SOCIAL HISTORY: Positive smoking. No alcohol. No intravenous drug abuse. FAMILY HISTORY: Noncontributory. PHYSICAL EXAMINATION: GENERAL: Slightly anxious in bed, oriented x2, in no acute distress. VITAL SIGNS: Temperature is 97, pulse 103, respiratory rate 18, blood pressure 108/51. CARDIOVASCULAR: No murmur. LUNGS: Distant. Poor exchange. ABDOMEN: Bowel sounds distant. EXTREMITIES: No cyanosis, clubbing, 1+ edema. NEUROLOGIC: The patient moves all extremities, slightly weak. LABORATORY DATA: Labs at this time show CBC is normal. BMP shows CO2 38, BUN 19, calcium 8.0, phosphorus 5.1. Troponin 0.00. Albumin 2.6. INR is 0.9. PTT 25. Urinalysis is negative. MEDICATIONS: Include Risperdal, Synthroid, Toradol, Cardizem, Lasix, Depakote, heparin, [place], dextrose, Zofran, MiraLax, Tylenol, and albuterol. ASSESSMENT: Chest pain, bilateral lower extremity edema, obesity, leg pain, back pain and hypertension. PLAN: 1. O2 and pulmonary treatment . 2. Antibiotics per Infectious Disease. 3. Wound care. 4. Blood pressure and pain control. 5. OT/PT, dietary followup. 6. CBC and BMP in the morning. Bill Lane D.O. DR: DINAH JOB#: [id number] CC:
[2017-11-29 21:00] VITALS: BP 116/67
[2017-11-30] VITALS (7 sets, daily range): BP systolic 97–118; BP diastolic 52–66
[2017-11-30] MEDS: Levothyroxine 25mcg tab ORAL SCH (06:08)
[2017-11-30] MEDS: dilTIAZem HCl 60mg tab ORAL SCH ×3 (06:08→21:56)
[2017-11-30 06:51] LABS: BASOPHILS % (AUTO) 1.1 % (0.0-2.0); EOSINOPHILS % (AUTO) 1.8 % (0.0-3.0); HEMATOCRIT 38.6 % (37.0-47.0); HEMOGLOBIN 12.7 G/DL (12.0-16.0); LYMPHOCYTES % (AUTO) 24.6 % (20.0-45.0); MEAN CORPUSCULAR VOLUME 94 FL (80-99); MONOCYTES % (AUTO) 8.8 % (1.0-10.0); NEUTROPHILS % (AUTO) 63.6 % (45.0-75.0); PLATELET COUNT 186 K/UL (150-450); WHITE BLOOD COUNT 6.7 K/UL (4.8-10.8)
[2017-11-30 07:36] LABS: ANION GAP 3 mmol/L (5-15); BLOOD UREA NITROGEN 16 mg/dL (7-18); CARBON DIOXIDE 34 MMOL/L (21-32); CHLORIDE 102 MMOL/L (98-107); CREATININE 0.7 MG/DL (0.55-1.30); SODIUM 139 MMOL/L (136-145)
[2017-11-30] MEDS: Depakote 500mg tab ORAL SCH ×2 (08:10→21:04)
[2017-11-30] MEDS: Heparin 5000 units/ml inj SUBQ SCH ×2 (08:12→21:05)
--- NOTE | 2017-11-30 08:31 | Consultation ---
History of Present Illness General Date patient seen: Nov 30, 2017 Chief Complaint: Present Illness Allergies: Coded Allergies: HALOPERIDOL (Verified Allergy, Unknown, 06/16/17) Medication History Scheduled Diltiazem Hcl* (Cardizem*), 60 MG ORAL EVERY 8 HOURS, (Reported) Divalproex Sodium (Divalproex Sodium), 500 MG PO BID, (Reported) Enoxaparin* (Lovenox*), 30 MG SUBQ DAILY, (Reported) Heparin Sod (Porcine) (Heparin Sodium*), 5,000 UNITS SUBQ EVERY 12 HOURS, ( Reported) Levothyroxine Sodium (Levothyroxine Sodium), 25 MCG IV DAILY, (Reported) Levothyroxine Sodium* (Levothyroxine Sodium*), 25 MCG ORAL DAILY, (Reported) Levothyroxine Sodium* (Levothyroxine Sodium*), 75 MCG ORAL DAILY, (Reported) Prednisone* (Prednisone*), 30 MG ORAL DAILY, (Reported) Risperidone* (Risperdal*), 2 MG ORAL DAILY, (Reported) Sennosides (Senna), 17.2 MG PO QHS, (Reported) [riperidone], 4 MG PO HS, (Reported) Scheduled PRN Acetaminophen* (Tylenol Extra Strength*), 650 MG ORAL Q4HR PRN for Mild Pain ( Pain Scale 1-3), (Reported) Acetaminophen* (Acetaminophen 325MG Tablet*), 650 MG ORAL Q4H PRN for TEMP <101, (Reported) Hydrocodone Bit/Acetaminophen 10-325* ([place] 10-325*), 1 TAB ORAL Q4H PRN for For Pain, (Reported) Lorazepam* (Lorazepam*), 1 MG ORAL Q6HR PRN for For Anxiety, (Reported) Nitroglycerin (Nitrostat), 0.4 MG SL Q5M X3 DOSES PRN for CHEST PAIN, (Reported) Ondansetron Odt* (Zofran Odt*), 4 MG ORAL Q6H PRN for Nausea & Vomiting, ( Reported) Promethazine HCl/Codeine (Prometh-Codein 6.25-10 mg/5 ml), 10 ML PO Q8HR PRN for For Cough, (Reported) Temazepam (Temazepam*), 15 MG ORAL BEDTIME PRN for Insomnia, (Reported) Miscellaneous Medications Ipratropium/Albuterol Sulfate (DuoNeb 0.5-3(2.5)mg/3ml), 3 ML HHN, (Reported) Patient History Healthcare decision maker Samir Doyle Resuscitation status Full Code Advanced Directive on File Physical Exam Last 24 Hour Vital Signs Date Time Temp Pulse Resp B/P (MAP) Pulse Ox O2 Delivery O2 Flow Rate FiO2 11/30/17 07:56 97.5 80 18 104/53 93 Nasal Cannula 2.0 97.5 11/30/17 06:08 75 115/59 11/30/17 04:00 97.9 75 18 115/59 93 Nasal Cannula 3.0 32 97.9 11/30/17 04:00 74 11/30/17 00:00 98.0 70 18 115/54 93 Nasal Cannula 3.0 32 98.0 11/30/17 00:00 72 11/29/17 21:24 74 116/67 11/29/17 21:00 97.9 74 20 116/67 95 Nasal Cannula 3.0 32 97.9 11/29/17 20:00 110 11/29/17 19:17 Nasal Cannula 3.0 32 11/29/17 19:17 96 Nasal Cannula 3.0 32 11/29/17 19:17 81 20 Nasal Cannula 3.0 32 11/29/17 16:00 98.9 82 18 95/56 97 Nasal Cannula 3.0 32 98.9 11/29/17 16:00 80 11/29/17 14:24 77 112/68 11/29/17 13:27 73 20 99 Nasal Cannula 3.0 32 11/29/17 13:18 71 20 98 Nasal Cannula 3.0 32 11/29/17 12:00 98.0 99 19 100/63 96 Nasal Cannula 3.0 32 98.0 11/29/17 12:00 81 11/29/17 08:45 97.8 Intake and Output 11/29/17 11/30/17 19:00 07:00 Intake Total 1000 ml 240 ml Output Total 1300 ml 700 ml Balance -300 ml -460 ml Intake Oral 240 ml Other 1000 ml Output Urine Total 1300 ml 700 ml Laboratory Tests Test 11/30/17 06:25 White Blood Count 6.7 K/UL (4.8-10.8) Red Blood Count 4.10 M/UL (4.20-5.40) L Hemoglobin 12.7 G/DL (12.0-16.0) Hematocrit 38.6 % (37.0-47.0) Mean Corpuscular Volume 94 FL (80-99) Mean Corpuscular Hemoglobin 31.1 PG (27.0-31.0) H Mean Corpuscular Hemoglobin Concent 33.0 G/DL (32.0-36.0) Red Cell Distribution Width 13.0 % (11.6-14.8) Platelet Count 186 K/UL (150-450) Mean Platelet Volume 6.2 FL (6.5-10.1) L Neutrophils (%) (Auto) 63.6 % (45.0-75.0) Lymphocytes (%) (Auto) 24.6 % (20.0-45.0) Monocytes (%) (Auto) 8.8 % (1.0-10.0) Eosinophils (%) (Auto) 1.8 % (0.0-3.0) Basophils (%) (Auto) 1.1 % (0.0-2.0) Sodium Level 139 MMOL/L (136-145) Potassium Level 4.0 MMOL/L (3.5-5.1) Chloride Level 102 MMOL/L (98-107) Carbon Dioxide Level 34 MMOL/L (21-32) H Anion Gap 3 mmol/L (5-15) L Blood Urea Nitrogen 16 mg/dL (7-18) Creatinine 0.7 MG/DL (0.55-1.30) Estimat Glomerular Filtration Rate mL/min (>60) Glucose Level 85 MG/DL (74-106) Calcium Level 8.0 MG/DL (8.5-10.1) L Troponin I 0.000 ng/mL (0.000-0.056) Height (Feet): 5 Height (Inches): 4.00 Weight (Pounds): 288 Medications Current Medications Medications (Trade) Dose Ordered Sig/Marleni Route PRN Reason Start Time Stop Time Status Last Admin Dose Admin Acetaminophen (Tylenol) 650 mg Q4H PRN ORAL Fever 11/28/17 20:15 12/28/17 20:14 11/29/17 04:00 Acetaminophen/ Hydrocodone Bitart ([place] 10) 1 tab Q4H PRN ORAL For Pain 11/28/17 20:15 12/05/17 20:14 11/30/17 02:01 Albuterol/ Ipratropium (Albuterol/ Ipratropium) 3 ml Q4H PRN HHN Shortness of Breath 11/28/17 20:15 12/03/17 20:14 11/29/17 13:18 Dextrose (Dextrose 50%) 25 ml STAT PRN IV Hypoglycemia 11/29/17 17:30 12/28/17 20:14 Dextrose (Dextrose 50%) 50 ml STAT PRN IV Hypoglycemia 11/29/17 17:30 12/29/17 17:29 Diltiazem HCl (Cardizem) 60 mg EVERY 8 HOURS ORAL 11/28/17 22:00 12/28/17 21:59 11/30/17 06:08 Divalproex Sodium (Depakote) 500 mg Q12HR ORAL 11/28/17 21:00 12/28/17 20:59 11/30/17 08:10 Furosemide (Lasix) 40 mg DAILY IV 11/30/17 09:00 12/28/17 21:59 11/30/17 08:10 Heparin Sodium (Porcine) (Heparin 5000 units/ml) 5,000 units EVERY 12 HOURS SUBQ 11/28/17 21:00 12/28/17 20:59 11/30/17 08:12 Ketorolac Tromethamine (Toradol 30mg) 15 mg Q6H PRN IV For severe pain >7 11/28/17 22:30 12/03/17 22:29 11/29/17 21:21 Levothyroxine Sodium (Synthroid) 25 mcg ACBREAKFAST ORAL 11/29/17 06:30 12/29/17 06:29 11/30/17 06:08 Nicotine (Nicoderm) 1 patch Q24H TDERMAL 11/29/17 18:00 12/29/17 17:59 11/29/17 18:08 Ondansetron HCl (Zofran) 4 mg Q6H PRN IVP Nausea & Vomiting 11/28/17 20:15 12/28/17 20:14 Polyethylene Glycol (Miralax) 17 gm DAILYPRN PRN ORAL Constipation 11/28/17 20:15 12/28/17 20:14 Risperidone (RisperDAL) 2 mg DAILY ORAL 11/29/17 09:00 12/29/17 08:59 11/30/17 08:09 Temazepam (Restoril) 15 mg HSPRN PRN ORAL Insomnia 11/28/17 20:15 12/05/17 20:14 11/29/17 02:25 Assessment/Plan Assessment/Plan (1) Morbid obesity (2) Lumbago (3) Peripheral neuropathy (4) COPD (5) CHF seen dictated David Odom Nov 30, 2017 08:31
[2017-11-30] MEDS: Albuterol/Ipratropium 3ml neb HHN PRN ×2 (09:19→17:36)
--- NOTE | 2017-11-30 11:36 | Diagnostic Imaging Report ---
Indication: Back pain Technique: 3 views of the lumbar spine Comparison: None Findings: There is mild anterior offset of L4 on L5. The remainder the bony alignment is normal. The vertebral body heights are preserved. The disc spaces are preserved. The bones are osteoporotic. No definite acute fractures. On the AP view, vascular embolization coils are noted in the midline Impression: No acute process
--- NOTE | 2017-11-30 12:22 | Pulmonology Progress Note ---
Assessment/Plan Problems: (1) COPD (chronic obstructive pulmonary disease) (2) Peripheral edema (3) CHF (congestive heart failure) (4) Cellulitis (5) MELVIN (obstructive sleep apnea) Assessment/Plan respiratory treatment diuresed 4500 cc yesterday doing better continue abx for cellulitis dvt prophylaxis. Subjective ROS Limited/Unobtainable: No Interval Events: doing better Constitutional: Reports: no symptoms HEENT: Repors: no symptoms Respiratory: Reports: no symptoms Allergies: Coded Allergies: HALOPERIDOL (Verified Allergy, Unknown, 06/16/17) Objective Last 24 Hour Vital Signs Date Time Temp Pulse Resp B/P (MAP) Pulse Ox O2 Delivery O2 Flow Rate FiO2 11/30/17 12:01 97.3 70 19 106/66 96 97.3 11/30/17 09:18 75 18 99 Nasal Cannula 3.0 32 11/30/17 09:10 76 18 96 Nasal Cannula 3.0 32 11/30/17 07:56 97.5 80 18 104/53 93 Nasal Cannula 2.0 97.5 11/30/17 07:39 93 11/30/17 07:02 95 Nasal Cannula 3.0 32 11/30/17 07:02 78 18 Nasal Cannula 3.0 32 11/30/17 07:02 Nasal Cannula 3.0 32 11/30/17 06:08 75 115/59 11/30/17 04:00 97.9 75 18 115/59 93 Nasal Cannula 3.0 32 97.9 11/30/17 04:00 74 11/30/17 00:00 98.0 70 18 115/54 93 Nasal Cannula 3.0 32 98.0 11/30/17 00:00 72 11/29/17 21:24 74 116/67 18 21:00 97.9 74 20 116/67 95 Nasal Cannula 3.0 32 97.9 11/29/17 20:00 110 11/29/17 19:17 Nasal Cannula 3.0 32 11/29/17 19:17 96 Nasal Cannula 3.0 32 11/29/17 19:17 81 20 Nasal Cannula 3.0 32 11/29/17 16:00 98.9 82 18 95/56 97 Nasal Cannula 3.0 32 98.9 11/29/17 16:00 80 11/29/17 14:24 77 112/68 11/29/17 13:27 73 20 99 Nasal Cannula 3.0 32 11/29/17 13:18 71 20 98 Nasal Cannula 3.0 32 Intake and Output 11/29/17 11/30/17 19:00 07:00 Intake Total 1000 ml 240 ml Output Total 1300 ml 700 ml Balance -300 ml -460 ml Intake Oral 240 ml Other 1000 ml Output Urine Total 1300 ml 700 ml General Appearance: WD/WN HEENT: normocephalic Respiratory/Chest: chest wall non-tender, lungs clear, normal breath sounds Cardiovascular: normal peripheral pulses, normal rate Abdomen: normal bowel sounds, soft, non tender Genitourinary: normal external genitalia Extremities: other - pedal edema Microbiology Date/Time Source Procedure Growth Status 11/28/17 17:40 Blood Blood Culture - Preliminary NO GROWTH AFTER 24 HOURS Resulted 11/28/17 17:30 Blood Blood Culture - Preliminary NO GROWTH AFTER 24 HOURS Resulted Laboratory Tests 11/30/17 06:25: White Blood Count 6.7, Red Blood Count 4.10L, Hemoglobin 12.7, Hematocrit 38.6, Mean Corpuscular Volume 94, Mean Corpuscular Hemoglobin 31.1H, Mean Corpuscular Hemoglobin Concent 33.0, Red Cell Distribution Width 13.0, Platelet Count 186, Mean Platelet Volume 6.2L, Neutrophils (%) (Auto) 63.6, Lymphocytes (%) (Auto) 24.6, Monocytes (%) (Auto) 8.8, Eosinophils (%) (Auto) 1.8, Basophils (%) (Auto ) 1.1, Sodium Level 139, Potassium Level 4.0, Chloride Level 102, Carbon Dioxide Level 34H, Anion Gap 3L, Blood Urea Nitrogen 16, Creatinine 0.7, Estimat Glomerular Filtration Rate , Glucose Level 85, Calcium Level 8.0L, Troponin I 0.000 Current Medications Medications (Trade) Dose Ordered Sig/Marleni Route PRN Reason Start Time Stop Time Status Last Admin Dose Admin Acetaminophen (Tylenol) 650 mg Q4H PRN ORAL Fever 11/28/17 20:15 12/28/17 20:14 11/29/17 04:00 Acetaminophen/ Hydrocodone Bitart ([place] 10/325) 1 tab Q4H PRN ORAL For Pain 11/28/17 20:15 12/05/17 20:14 11/30/17 02:01 Albuterol/ Ipratropium (Albuterol/ Ipratropium) 3 ml Q4H PRN HHN Shortness of Breath 11/28/17 20:15 12/03/17 20:14 11/30/17 09:19 Dextrose (Dextrose 50%) 25 ml STAT PRN IV Hypoglycemia 11/29/17 17:30 12/28/17 20:14 Dextrose (Dextrose 50%) 50 ml STAT PRN IV Hypoglycemia 11/29/17 17:30 12/29/17 17:29 Diltiazem HCl (Cardizem) 60 mg EVERY 8 HOURS ORAL 11/28/17 22:00 12/28/17 21:59 11/30/17 06:08 Divalproex Sodium (Depakote) 500 mg Q12HR ORAL 11/28/17 21:00 12/28/17 20:59 11/30/17 08:10 Furosemide (Lasix) 40 mg DAILY IV 11/30/17 09:00 12/28/17 21:59 11/30/17 08:10 Heparin Sodium (Porcine) (Heparin 5000 units/ml) 5,000 units EVERY 12 HOURS SUBQ 11/28/17 21:00 12/28/17 20:59 11/30/17 08:12 Ketorolac Tromethamine (Toradol 30mg) 15 mg Q6H PRN IV For severe pain >7 11/28/17 22:30 12/03/17 22:29 11/29/17 21:21 Levothyroxine Sodium (Synthroid) 25 mcg ACBREAKFAST ORAL 11/29/17 06:30 12/29/17 06:29 11/30/17 06:08 Lidocaine (Lidoderm 5% PATCH) 1 patch DAILY TDERMAL 11/30/17 09:00 12/30/17 08:59 11/30/17 09:39 Nicotine (Nicoderm) 1 patch Q24H TDERMAL 11/29/17 18:00 12/29/17 17:59 11/29/17 18:08 Ondansetron HCl (Zofran) 4 mg Q6H PRN IVP Nausea & Vomiting 11/28/17 20:15 12/28/17 20:14 Polyethylene Glycol (Miralax) 17 gm DAILYPRN PRN ORAL Constipation 11/28/17 20:15 12/28/17 20:14 Risperidone (RisperDAL) 2 mg DAILY ORAL 11/29/17 09:00 12/29/17 08:59 11/30/17 08:09 Temazepam (Restoril) 15 mg HSPRN PRN ORAL Insomnia 11/28/17 20:15 12/05/17 20:14 11/29/17 02:25 Fartun Gan MD Nov 30, 2017 12:22
--- NOTE | 2017-11-30 12:33 | Infectious Diseases Prog Note ---
Assessment/Plan Assessment/Plan Abx: Ceftriaxone x1 11/28 Assessment: SOB CHF exacerbation -CXR: Cardiomegaly with pulmonary vascular congestion/mild interstitial edema. B/l LE edema- no cellulitis at present Afebrile, no leukocytosis hx of acute resp failure and PNA 06/2017 -sp cx normal frank CHF GERD peripheral neuropathy HTN COPD CAD/MN schizophrenia Plan: -Continue to monitor off abx 06/23 SP Levaquin #5 06/22 SP Ceftriaxone #5 06/18/17 SP Zosyn #3 and Tamiflu #2 -f/u cx -Monitor CBC/CMP, temperatures -aspiration precautions -f/u v duplex Thank you for this consultation. Will continue to follow along with you. Discussed with RN. Subjective Allergies: Coded Allergies: HALOPERIDOL (Verified Allergy, Unknown, 06/16/17) Subjective afebrile no leukocytosis Objective Vital Signs Last 24 Hour Vital Signs Date Time Temp Pulse Resp B/P (MAP) Pulse Ox O2 Delivery O2 Flow Rate FiO2 11/30/17 12:01 97.3 70 19 106/66 96 97.3 11/30/17 11:32 77 11/30/17 09:18 75 18 99 Nasal Cannula 3.0 32 11/30/17 09:10 76 18 96 Nasal Cannula 3.0 32 11/30/17 07:56 97.5 80 18 104/53 93 Nasal Cannula 2.0 97.5 11/30/17 07:39 93 11/30/17 07:02 95 Nasal Cannula 3.0 32 11/30/17 07:02 78 18 Nasal Cannula 3.0 32 11/30/17 07:02 Nasal Cannula 3.0 32 11/30/17 06:08 75 115/59 11/30/17 04:00 97.9 75 18 115/59 93 Nasal Cannula 3.0 32 97.9 11/30/17 04:00 74 11/30/17 00:00 98.0 70 18 115/54 93 Nasal Cannula 3.0 32 98.0 11/30/17 00:00 72 11/29/17 21:24 74 116/67 11/29/17 21:00 97.9 74 20 116/67 95 Nasal Cannula 3.0 32 97.9 11/29/17 20:00 110 11/29/17 19:17 Nasal Cannula 3.0 32 11/29/17 19:17 96 Nasal Cannula 3.0 32 11/29/17 19:17 81 20 Nasal Cannula 3.0 32 11/29/17 16:00 98.9 82 18 95/56 97 Nasal Cannula 3.0 32 98.9 11/29/17 16:00 80 11/29/17 14:24 77 112/68 11/29/17 13:27 73 20 99 Nasal Cannula 3.0 32 11/29/17 13:18 71 20 98 Nasal Cannula 3.0 32 Height (Feet): 5 Height (Inches): 4.00 Weight (Pounds): 288 Objective General Appearance: normal inspection, well appearing, no apparent distress, alert, GCS 15, non-toxic, obese HEENT: normocephalic, atraumatic, normal ENT inspection Neck: normal inspection, full range of motion, supple, no bony tend Respiratory: normal inspection, no respiratory distress, no retraction, wheezing Cardiovascular : regular rate, rhythm, edema - 3+ Gastrointestinal: normal inspection, normal bowel sounds, non tender, soft, no guarding, no hernia Genitourinary: no CVA tenderness Musculoskeletal: normal inspection, back normal, normal range of motion Skin: no rash, other - right foot with slight erythema and serous drainage Microbiology Date/Time Source Procedure Growth Status 11/28/17 17:40 Blood Blood Culture - Preliminary NO GROWTH AFTER 24 HOURS Resulted 11/28/17 17:30 Blood Blood Culture - Preliminary NO GROWTH AFTER 24 HOURS Resulted Laboratory Tests Test 11/30/17 06:25 White Blood Count 6.7 K/UL (4.8-10.8) Red Blood Count 4.10 M/UL (4.20-5.40) L Hemoglobin 12.7 G/DL (12.0-16.0) Hematocrit 38.6 % (37.0-47.0) Mean Corpuscular Volume 94 FL (80-99) Mean Corpuscular Hemoglobin 31.1 PG (27.0-31.0) H Mean Corpuscular Hemoglobin Concent 33.0 G/DL (32.0-36.0) Red Cell Distribution Width 13.0 % (11.6-14.8) Platelet Count 186 K/UL (150-450) Mean Platelet Volume 6.2 FL (6.5-10.1) L Neutrophils (%) (Auto) 63.6 % (45.0-75.0) Lymphocytes (%) (Auto) 24.6 % (20.0-45.0) Monocytes (%) (Auto) 8.8 % (1.0-10.0) Eosinophils (%) (Auto) 1.8 % (0.0-3.0) Basophils (%) (Auto) 1.1 % (0.0-2.0) Sodium Level 139 MMOL/L (136-145) Potassium Level 4.0 MMOL/L (3.5-5.1) Chloride Level 102 MMOL/L (98-107) Carbon Dioxide Level 34 MMOL/L (21-32) H Anion Gap 3 mmol/L (5-15) L Blood Urea Nitrogen 16 mg/dL (7-18) Creatinine 0.7 MG/DL (0.55-1.30) Estimat Glomerular Filtration Rate mL/min (>60) Glucose Level 85 MG/DL (74-106) Calcium Level 8.0 MG/DL (8.5-10.1) L Troponin I 0.000 ng/mL (0.000-0.056) Current Medications Medications (Trade) Dose Ordered Sig/Marleni Route PRN Reason Start Time Stop Time Status Last Admin Dose Admin Acetaminophen (Tylenol) 650 mg Q4H PRN ORAL Fever 11/28/17 20:15 12/28/17 20:14 11/29/17 04:00 Acetaminophen/ Hydrocodone Bitart ([place] 10/325) 1 tab Q4H PRN ORAL For Pain 11/28/17 20:15 12/05/17 20:14 11/30/17 02:01 Albuterol/ Ipratropium (Albuterol/ Ipratropium) 3 ml Q4H PRN HHN Shortness of Breath 11/28/17 20:15 12/03/17 20:14 11/30/17 09:19 Dextrose (Dextrose 50%) 25 ml STAT PRN IV Hypoglycemia 11/29/17 17:30 12/28/17 20:14 Dextrose (Dextrose 50%) 50 ml STAT PRN IV Hypoglycemia 11/29/17 17:30 12/29/17 17:29 Diltiazem HCl (Cardizem) 60 mg EVERY 8 HOURS ORAL 11/28/17 22:00 12/28/17 21:59 11/30/17 06:08 Divalproex Sodium (Depakote) 500 mg Q12HR ORAL 11/28/17 21:00 12/28/17 20:59 11/30/17 08:10 Furosemide (Lasix) 40 mg DAILY IV 11/30/17 09:00 12/28/17 21:59 11/30/17 08:10 Heparin Sodium (Porcine) (Heparin 5000 units/ml) 5,000 units EVERY 12 HOURS SUBQ 11/28/17 21:00 12/28/17 20:59 11/30/17 08:12 Ketorolac Tromethamine (Toradol 30mg) 15 mg Q6H PRN IV For severe pain >7 11/28/17 22:30 12/03/17 22:29 11/29/17 21:21 Levothyroxine Sodium (Synthroid) 25 mcg ACBREAKFAST ORAL 11/29/17 06:30 12/29/17 06:29 11/30/17 06:08 Lidocaine (Lidoderm 5% PATCH) 1 patch DAILY TDERMAL 11/30/17 09:00 12/30/17 08:59 11/30/17 09:39 Nicotine (Nicoderm) 1 patch Q24H TDERMAL 11/29/17 18:00 12/29/17 17:59 11/29/17 18:08 Ondansetron HCl (Zofran) 4 mg Q6H PRN IVP Nausea & Vomiting 11/28/17 20:15 12/28/17 20:14 Polyethylene Glycol (Miralax) 17 gm DAILYPRN PRN ORAL Constipation 11/28/17 20:15 12/28/17 20:14 Risperidone (RisperDAL) 2 mg DAILY ORAL 11/29/17 09:00 12/29/17 08:59 11/30/17 08:09 Temazepam (Restoril) 15 mg HSPRN PRN ORAL Insomnia 11/28/17 20:15 12/05/17 20:14 11/29/17 02:25 Ange Grant M.D. Nov 30, 2017 12:33
[2017-11-30] MEDS ORDERED: Ketorolac 30mg Inj IV PRN (13:30)
[2017-11-30] MEDS ORDERED: Miralax 17gm pkt ORAL PRN (13:30)
--- NOTE | 2017-11-30 14:44 | General Progress Note ---
Assessment/Plan Problem List: (1) Chest pain ICD Codes: R07.9 - Chest pain, unspecified SNOMED: 87883395 (2) Obese ICD Codes: E66.9 - Obesity, unspecified SNOMED: 762899791, 357055195 (3) HTN (hypertension) ICD Codes: I10 - Essential (primary) hypertension SNOMED: 95393830 (4) COPD (chronic obstructive pulmonary disease) ICD Codes: J44.9 - Chronic obstructive pulmonary disease, unspecified SNOMED: 14569201 (5) CHF (congestive heart failure) ICD Codes: I50.9 - Heart failure, unspecified SNOMED: 12698703 (6) Cellulitis ICD Codes: L03.90 - Cellulitis, unspecified SNOMED: 122401255 (7) Peripheral edema ICD Codes: R60.9 - Edema, unspecified SNOMED: 539646966 Status: unchanged Assessment/Plan ot pt diet o2 pulm tx abx wound care cbc bmp in am Subjective Constitutional: Reports: weakness Allergies: Coded Allergies: HALOPERIDOL (Verified Allergy, Unknown, 06/16/17) All Systems: reviewed and negative except above Subjective o2nc sleepy Objective Last 24 Hour Vital Signs Date Time Temp Pulse Resp B/P (MAP) Pulse Ox O2 Delivery O2 Flow Rate FiO2 11/30/17 14:00 78 97/52 11/30/17 13:51 98.2 78 18 97/52 94 98.2 11/30/17 12:01 97.3 70 19 106/66 96 97.3 11/30/17 11:32 77 11/30/17 09:18 75 18 99 Nasal Cannula 3.0 32 11/30/17 09:10 76 18 96 Nasal Cannula 3.0 32 11/30/17 07:56 97.5 80 18 104/53 93 Nasal Cannula 2.0 97.5 11/30/17 07:39 93 11/30/17 07:02 95 Nasal Cannula 3.0 32 11/30/17 07:02 78 18 Nasal Cannula 3.0 32 11/30/17 07:02 Nasal Cannula 3.0 32 11/30/17 06:08 75 115/59 11/30/17 04:00 97.9 75 18 115/59 93 Nasal Cannula 3.0 32 97.9 11/30/17 04:00 74 6/19/18 00:00 98.0 70 18 115/54 93 Nasal Cannula 3.0 32 98.0 11/30/17 00:00 72 11/29/17 21:24 74 116/67 11/29/17 21:00 97.9 74 20 116/67 95 Nasal Cannula 3.0 32 97.9 11/29/17 20:00 110 11/29/17 19:17 Nasal Cannula 3.0 32 11/29/17 19:17 96 Nasal Cannula 3.0 32 11/29/17 19:17 81 20 Nasal Cannula 3.0 32 11/29/17 16:00 98.9 82 18 95/56 97 Nasal Cannula 3.0 32 98.9 11/29/17 16:00 80 Intake and Output 11/29/17 11/30/17 19:00 07:00 Intake Total 1000 ml 240 ml Output Total 1300 ml 700 ml Balance -300 ml -460 ml Intake Oral 240 ml Other 1000 ml Output Urine Total 1300 ml 700 ml Laboratory Tests 11/30/17 06:25: White Blood Count 6.7, Red Blood Count 4.10L, Hemoglobin 12.7, Hematocrit 38.6, Mean Corpuscular Volume 94, Mean Corpuscular Hemoglobin 31.1H, Mean Corpuscular Hemoglobin Concent 33.0, Red Cell Distribution Width 13.0, Platelet Count 186, Mean Platelet Volume 6.2L, Neutrophils (%) (Auto) 63.6, Lymphocytes (%) (Auto) 24.6, Monocytes (%) (Auto) 8.8, Eosinophils (%) (Auto) 1.8, Basophils (%) (Auto ) 1.1, Sodium Level 139, Potassium Level 4.0, Chloride Level 102, Carbon Dioxide Level 34H, Anion Gap 3L, Blood Urea Nitrogen 16, Creatinine 0.7, Estimat Glomerular Filtration Rate , Glucose Level 85, Calcium Level 8.0L, Troponin I 0.000 Height (Feet): 5 Height (Inches): 4.00 Weight (Pounds): 288 General Appearance: lethargic EENT: normal ENT inspection Neck: normal alignment Cardiovascular: normal peripheral pulses, normal rate, regular rhythm Respiratory/Chest: chest wall non-tender, decreased breath sounds Abdomen: normal bowel sounds, non tender, soft Extremities: normal inspection Edema: 1+ Arm (L), 1+ Arm (R), 1+ Leg (L), 1+ Leg (R), 1+ Pedal (L), 1+ Pedal ( R), 1+ Generalized Edema: trace edema Neurologic: motor weakness Skin: normal pigmentation, warm/dry Bill Lane DO Nov 30, 2017 14:44
[2017-11-30] MEDS: HYDROcodone/Acetamin 10/325 tab ORAL PRN ×2 (16:54→21:04)
--- NOTE | 2017-11-30 22:00 | Consultation ---
DATE OF CONSULTATION: 11/30/2017 PAIN MANAGEMENT CONSULTATION CONSULTING PHYSICIAN: Beni Hicks M.D. REFERRING PHYSICIAN: Bill Lane D.O. PHYSICIAN COMMUNITY SERVICE DIRECTOR: Nilesh Asher CHIEF COMPLAINT: Low back pain. HISTORY OF PRESENT ILLNESS: This is a 72-year-old female, who is being seen on the Medical/Surgical floor of [facility] for initial pain management consultation. The patient was admitted under the care of Dr. Lane due to chest pain and we were consulted as the patient was complaining of low back pain. She describes the pain as a sharp, stabbing pain in her lower back. She also has lower extremity pain due to severe CHF causing edema, causing neuropathy as well. We were consulted so the patient will have adequate pain control while here in the hospital. The patient is on [place] 10/325 mg one tablet every 4 hours as needed for severe pain, which has been tolerating her pain well, reducing her pain to a tolerable level. Discussed with the patient about ordering an x-ray of lumbar spine as well as a Lidoderm patch to be applied to low back at the site of the pain 12 hours on and 12 hours off. The patient seems to understand and agrees. Due to the patient's pain, which she rates 10/10, we were consulted so that the patient will have adequate control while here in the hospital. PAST MEDICAL HISTORY: CHF, hypertension, COPD, GERD, and peripheral neuropathy. PAST SURGICAL HISTORY: Gallbladder removal, appendectomy, hysterectomy, and thyroidectomy. SOCIAL HISTORY: She is a smoker. Denies alcohol and IV drug abuse. MEDICATIONS: Cardizem, divalproex, Lovenox, heparin, levothyroxine, prednisone, Risperdal, Senna, Tylenol, [place], Ativan, nitroglycerin, Zofran, promethazine, and temazepam. ALLERGIES: Haloperidol. REVIEW OF SYSTEMS: Denies rash, fever, chills, sweating, dizziness, drowsiness, blurred vision, sore throat, or change in weight. No nausea, vomiting, diarrhea, or blood in the stool or urine. No bowel or bladder incontinence. No dysuria. She is complaining of low back pain. PHYSICAL EXAMINATION: GENERAL: Alert, awake, oriented x3. VITAL SIGNS: Blood pressure 104/53, heart rate is 80, oxygen saturation 98%, respiratory rate 18, and temperature 97.5 degrees Fahrenheit. HEENT: PERRLA. NECK: Range of motion is full in all directions. No tenderness to paracervical muscles. No adenopathy. LUNGS: Decreased breath sounds bilaterally. HEART: Regular. ABDOMEN: Obese. BACK: Range of motion is decreased in flexion and extension due to the patient's condition with tenderness to paraspinal muscles. No tenderness in trapezius or rhomboid muscles. EXTREMITIES: Upper extremity range of motion is full in all directions. No cyanosis. No clubbing. No edema. Sensory is intact. Reflexes are not obtainable. No adenopathy. Lower extremity range of motion is reduced due to the patient's pain and condition. Motor unable to obtain at this time due to the patient's pain. No cyanosis. No clubbing. Severe edema noted in bilateral lower extremities. Sensory is reduced. Reflexes are not obtainable. No adenopathy. ASSESSMENT AND PLAN: This is a 72-year-old female with morbid obesity, lumbago, peripheral neuropathy, chronic obstructive pulmonary disease, and congestive heart failure. The patient will be continued on [place] at this time. We will start the patient on Lidoderm patch to be applied to the back at the site of the pain 12 hours on and 12 hours off. An x-ray of the lumbar spine to rule out any further pathology in the lower back. The patient was discussed with Dr. Hicks and Dr. Hicks concurred. We will follow the patient. Thank you very much for the courtesy of this consultation. Beni Hicks M.D. GLORY Asher DR: DEDE JOB#: [id number] CC:
[2017-12-01] VITALS: BP 98/52
[2017-12-01 04:00] VITALS: BP 102/58
[2017-12-01] MEDS: dilTIAZem HCl 60mg tab ORAL SCH ×2 (05:47→14:00)
[2017-12-01] MEDS ORDERED: Levothyroxine 25mcg tab ORAL SCH (06:30)
[2017-12-01 06:36] LABS: BASOPHILS % (AUTO) 1.8 % (0.0-2.0); EOSINOPHILS % (AUTO) 0.2 % (0.0-3.0); HEMATOCRIT 38.9 % (37.0-47.0); HEMOGLOBIN 12.6 G/DL (12.0-16.0); LYMPHOCYTES % (AUTO) 24.3 % (20.0-45.0); MEAN CORPUSCULAR VOLUME 94 FL (80-99); MONOCYTES % (AUTO) 10.5 % (1.0-10.0); NEUTROPHILS % (AUTO) 63.2 % (45.0-75.0); PLATELET COUNT 147 K/UL (150-450); RED BLOOD COUNT 4.13 M/UL (4.20-5.40); RED CELL DISTRIBUTION WIDTH 12.6 % (11.6-14.8); WHITE BLOOD COUNT 5.2 K/UL (4.8-10.8)
[2017-12-01 07:05] LABS: ALANINE AMINOTRANSFERASE 101 U/L (12-78); ALBUMIN 2.6 G/DL (3.4-5.0); ALBUMIN/GLOBULIN RATIO 0.8 (1.0-2.7); ALKALINE PHOSPHATASE 81 U/L (46-116); ANION GAP -1 mmol/L (5-15); ASPARTATE AMINO TRANSFERASE 112 U/L (15-37); BILIRUBIN,TOTAL 0.6 MG/DL (0.2-1.0); BLOOD UREA NITROGEN 15 mg/dL (7-18); CARBON DIOXIDE 38 MMOL/L (21-32); CHLORIDE 102 MMOL/L (98-107); CREATININE 0.7 MG/DL (0.55-1.30); PHOSPHORUS 3.4 MG/DL (2.5-4.9); POTASSIUM 4.2 MMOL/L (3.5-5.1); SODIUM 139 MMOL/L (136-145)
--- NOTE | 2017-12-01 07:57 | General Progress Note ---
Assessment/Plan Assessment/Plan (1) Morbid obesity (2) Lumbago (3) Peripheral neuropathy (4) COPD (5) CHF Patient to be continued on [place]. D/w Dr. Hicks and he concurred. Subjective Date patient seen: Dec 01, 2017 Time patient seen: 07:30 - am Allergies: Coded Allergies: HALOPERIDOL (Verified Allergy, Unknown, 06/16/17) Subjective REVIEW OF SYSTEMS: Denies rash, fever, chills, sweating, dizziness, drowsiness, blurred vision, sore throat, or change in weight. No nausea, vomiting, diarrhea, or blood in the stool or urine. No bowel or bladder incontinence. No dysuria. She is complaining of low back pain. SUBJECTIVE: She is in bed and reports continued back pain which has been reduced and tolerated on the norco. xray was reviewed. Objective Last 24 Hour Vital Signs Date Time Temp Pulse Resp B/P (MAP) Pulse Ox O2 Delivery O2 Flow Rate FiO2 12/01/17 07:44 96 Nasal Cannula 3.0 32 12/01/17 07:44 82 18 Nasal Cannula 3.0 32 12/01/17 07:44 Nasal Cannula 3.0 32 12/01/17 05:47 71 97/59 12/01/17 04:00 98.4 79 16 102/58 95 Nasal Cannula 2.0 98.4 12/01/17 00:00 98.8 70 15 98/52 96 Nasal Cannula 2.0 98.8 11/30/17 22:03 98.3 11/30/17 21:56 69 97/55 11/30/17 21:04 98.3 11/30/17 20:05 80 20 Nasal Cannula 3.0 32 11/30/17 20:05 96 Nasal Cannula 3.0 32 11/30/17 20:05 Nasal Cannula 3.0 32 11/30/17 20:00 98.3 89 20 99/61 95 Nasal Cannula 2.0 98.3 11/30/17 17:47 79 18 98 Nasal Cannula 2.0 28 11/30/17 17:37 90 20 92 Nasal Cannula 1.0 24 11/30/17 16:54 98.4 11/30/17 15:44 98.4 80 18 118/53 93 98.4 11/30/17 14:00 78 97/52 11/30/17 13:51 98.2 78 18 97/52 94 98.2 11/30/17 12:01 97.3 70 19 106/66 96 97.3 11/30/17 11:32 77 11/30/17 09:18 75 18 99 Nasal Cannula 3.0 32 11/30/17 09:10 76 18 96 Nasal Cannula 3.0 32 11/30/17 07:56 97.5 80 18 104/53 93 Nasal Cannula 2.0 97.5 Intake and Output 11/30/17 12/01/17 19:00 07:00 Intake Total 220 ml 540 ml Output Total 1850 ml 1000 ml Balance -1630 ml -460 ml Intake Oral 220 ml 540 ml Output Urine Total 1850 ml 700 ml Stool Total 300 ml Laboratory Tests 12/01/17 05:30: White Blood Count 5.2, Red Blood Count 4.13L, Hemoglobin 12.6, Hematocrit 38.9, Mean Corpuscular Volume 94, Mean Corpuscular Hemoglobin 30.6, Mean Corpuscular Hemoglobin Concent 32.4, Red Cell Distribution Width 12.6, Platelet Count 147L, Mean Platelet Volume 5.9L, Neutrophils (%) (Auto) 63.2, Lymphocytes (%) (Auto) 24.3, Monocytes (%) (Auto) 10.5H, Eosinophils (%) (Auto) 0.2, Basophils (%) ( Auto) 1.8, Sodium Level 139, Potassium Level 4.2, Chloride Level 102, Carbon Dioxide Level 38H, Anion Gap -1L, Blood Urea Nitrogen 15, Creatinine 0.7, Estimat Glomerular Filtration Rate , Glucose Level 84, Calcium Level 8.0L, Phosphorus Level 3.4, Magnesium Level 2.1, Total Bilirubin 0.6, Aspartate Amino Transf (AST/SGOT) 112H, Alanine Aminotransferase (ALT/SGPT) 101H, Alkaline Phosphatase 81, Total Protein 5.7L, Albumin 2.6L, Globulin 3.1, Albumin/ Globulin Ratio 0.8L Height (Feet): 5 Height (Inches): 4.00 Weight (Pounds): 290 Objective GENERAL: Alert, awake, oriented x3. LUNGS: Decreased breath sounds bilaterally. HEART: Regular. ABDOMEN: Obese. EXTREMITIES: No cyanosis. No clubbing. edema noted. NEURO: No changes. Procedure: XRAY L Spine Ltd Indication: Back pain Impression: No acute process David Odom Dec 01, 2017 07:57
[2017-12-01 08:15] VITALS: BP 99/56
[2017-12-01] MEDS: Depakote 500mg tab ORAL SCH ×2 (08:59→20:45)
[2017-12-01] MEDS: Heparin 5000 units/ml inj SUBQ SCH ×2 (09:01→20:46)
[2017-12-01] MEDS: Albuterol/Ipratropium 3ml neb HHN PRN (10:19)
[2017-12-01 12:01] VITALS: BP 108/56
--- NOTE | 2017-12-01 14:15 | Pulmonology Progress Note ---
Assessment/Plan Problems: (1) COPD (chronic obstructive pulmonary disease) (2) Peripheral edema (3) CHF (congestive heart failure) (4) Cellulitis (5) MELVIN (obstructive sleep apnea) Assessment/Plan respiratory treatment diuresing well check electrolytes f/u BNP doing better continue abx for cellulitis dvt prophylaxis. Subjective ROS Limited/Unobtainable: No Constitutional: Reports: no symptoms HEENT: Repors: no symptoms Respiratory: Reports: no symptoms Allergies: Coded Allergies: HALOPERIDOL (Verified Allergy, Unknown, 06/16/17) Objective Last 24 Hour Vital Signs Date Time Temp Pulse Resp B/P (MAP) Pulse Ox O2 Delivery O2 Flow Rate FiO2 12/01/17 14:00 73 108/56 12/01/17 12:01 98.5 73 20 108/56 95 Nasal Cannula 98.5 12/01/17 10:24 73 18 97 Nasal Cannula 2.0 28 12/01/17 10:19 76 20 90 Nasal Cannula 2.0 28 12/01/17 09:58 98.5 12/01/17 09:28 98.5 12/01/17 08:15 98.5 70 20 99/56 96 Nasal Cannula 2.0 98.5 12/01/17 07:44 96 Nasal Cannula 3.0 32 12/01/17 07:44 82 18 Nasal Cannula 3.0 32 12/01/17 07:44 Nasal Cannula 3.0 32 12/01/17 05:47 71 97/59 12/01/17 04:00 98.4 79 16 102/58 95 Nasal Cannula 2.0 98.4 12/01/17 00:00 98.8 70 15 98/52 96 Nasal Cannula 2.0 98.8 11/30/17 22:03 98.3 11/30/17 21:56 69 97/55 11/30/17 21:04 98.3 11/30/17 20:05 80 20 Nasal Cannula 3.0 32 11/30/17 20:05 96 Nasal Cannula 3.0 32 11/30/17 20:05 Nasal Cannula 3.0 32 11/30/17 20:00 98.3 89 20 99/61 95 Nasal Cannula 2.0 98.3 11/30/17 17:47 79 18 98 Nasal Cannula 2.0 28 11/30/17 17:37 90 20 92 Nasal Cannula 1.0 24 11/30/17 16:54 98.4 11/30/17 15:44 98.4 80 18 118/53 93 98.4 Intake and Output 11/30/17 12/01/17 19:00 07:00 Intake Total 220 ml 540 ml Output Total 1850 ml 1000 ml Balance -1630 ml -460 ml Intake Oral 220 ml 540 ml Output Urine Total 1850 ml 700 ml Stool Total 300 ml General Appearance: WD/WN HEENT: normocephalic Respiratory/Chest: chest wall non-tender, lungs clear Breasts: no masses Cardiovascular: normal peripheral pulses Abdomen: normal bowel sounds, no organomegaly Extremities: no cyanosis, no clubbing Microbiology Date/Time Source Procedure Growth Status 11/28/17 17:40 Blood Blood Culture - Preliminary NO GROWTH AFTER 48 HOURS Resulted 11/28/17 17:30 Blood Blood Culture - Preliminary NO GROWTH AFTER 48 HOURS Resulted 11/28/17 15:30 Nasal Nares MRSA Culture - Final NO METHICILLIN RESISTANT STAPH AUREUS... Complete 11/28/17 15:30 Rectum VRE Culture - Final NO VANCOMYCIN RESISTANT ENTEROCOCCUS ... Complete Laboratory Tests 12/01/17 05:30: White Blood Count 5.2, Red Blood Count 4.13L, Hemoglobin 12.6, Hematocrit 38.9, Mean Corpuscular Volume 94, Mean Corpuscular Hemoglobin 30.6, Mean Corpuscular Hemoglobin Concent 32.4, Red Cell Distribution Width 12.6, Platelet Count 147L, Mean Platelet Volume 5.9L, Neutrophils (%) (Auto) 63.2, Lymphocytes (%) (Auto) 24.3, Monocytes (%) (Auto) 10.5H, Eosinophils (%) (Auto) 0.2, Basophils (%) ( Auto) 1.8, Sodium Level 139, Potassium Level 4.2, Chloride Level 102, Carbon Dioxide Level 38H, Anion Gap -1L, Blood Urea Nitrogen 15, Creatinine 0.7, Estimat Glomerular Filtration Rate , Glucose Level 84, Calcium Level 8.0L, Phosphorus Level 3.4, Magnesium Level 2.1, Total Bilirubin 0.6, Aspartate Amino Transf (AST/SGOT) 112H, Alanine Aminotransferase (ALT/SGPT) 101H, Alkaline Phosphatase 81, Total Protein 5.7L, Albumin 2.6L, Globulin 3.1, Albumin/ Globulin Ratio 0.8L Current Medications Medications (Trade) Dose Ordered Sig/Marleni Route PRN Reason Start Time Stop Time Status Last Admin Dose Admin Acetaminophen (Tylenol) 650 mg Q4H PRN ORAL Fever 11/30/17 13:30 12/28/17 13:29 Acetaminophen/ Hydrocodone Bitart ([place] 10/325) 1 tab Q4H PRN ORAL For Pain 11/30/17 13:30 12/05/17 13:29 11/30/17 21:04 Albuterol/ Ipratropium (Albuterol/ Ipratropium) 3 ml Q4H PRN HHN Shortness of Breath 11/30/17 13:30 12/03/17 13:29 12/01/17 10:19 Dextrose (Dextrose 50%) 25 ml STAT PRN IV Hypoglycemia 11/30/17 13:30 12/28/17 13:29 Dextrose (Dextrose 50%) 50 ml STAT PRN IV Hypoglycemia 11/30/17 13:30 12/29/17 13:29 Diltiazem HCl (Cardizem) 60 mg EVERY 8 HOURS ORAL 11/30/17 14:00 12/28/17 21:59 Divalproex Sodium (Depakote) 500 mg Q12HR ORAL 11/30/17 21:00 12/28/17 20:59 12/01/17 08:59 Furosemide (Lasix) 40 mg DAILY IV 12/01/17 09:00 12/28/17 21:59 12/01/17 08:59 Heparin Sodium (Porcine) (Heparin 5000 units/ml) 5,000 units EVERY 12 HOURS SUBQ 11/30/17 21:00 12/28/17 20:59 12/01/17 09:01 Ketorolac Tromethamine (Toradol 30mg) 15 mg Q6H PRN IV For severe pain >7 11/30/17 13:30 12/03/17 13:29 12/01/17 09:28 Levothyroxine Sodium (Synthroid) 25 mcg ACBREAKFAST ORAL 12/01/17 06:30 12/29/17 06:29 12/01/17 06:40 Lidocaine (Lidoderm 5% PATCH) 1 patch DAILY TDERMAL 12/01/17 09:00 12/30/17 08:59 12/01/17 09:00 Nicotine (Nicoderm) 1 patch Q24H TDERMAL 11/30/17 18:00 12/29/17 17:59 11/30/17 17:31 Ondansetron HCl (Zofran) 4 mg Q6H PRN IVP Nausea & Vomiting 11/30/17 13:30 12/28/17 13:29 Polyethylene Glycol (Miralax) 17 gm DAILYPRN PRN ORAL Constipation 11/30/17 13:30 12/28/17 13:29 Risperidone (RisperDAL) 2 mg DAILY ORAL 12/01/17 09:00 12/29/17 08:59 12/01/17 08:59 Temazepam (Restoril) 15 mg HSPRN PRN ORAL Insomnia 11/30/17 20:15 12/05/17 20:14 11/30/17 22:46 Fartun Gan MD Dec 01, 2017 14:15
--- NOTE | 2017-12-01 15:16 | General Progress Note ---
Assessment/Plan Problem List: (1) Chest pain ICD Codes: R07.9 - Chest pain, unspecified SNOMED: 29630390 (2) Obese ICD Codes: E66.9 - Obesity, unspecified SNOMED: 815141693, 963393493 (3) HTN (hypertension) ICD Codes: I10 - Essential (primary) hypertension SNOMED: 40804750 (4) COPD (chronic obstructive pulmonary disease) ICD Codes: J44.9 - Chronic obstructive pulmonary disease, unspecified SNOMED: 99166079 (5) CHF (congestive heart failure) ICD Codes: I50.9 - Heart failure, unspecified SNOMED: 64505268 (6) Cellulitis ICD Codes: L03.90 - Cellulitis, unspecified SNOMED: 111798415 (7) Peripheral edema ICD Codes: R60.9 - Edema, unspecified SNOMED: 176861336 Status: stable, progressing Assessment/Plan ot pt diet o2 pulm tx abx wound caredc if clear Subjective Constitutional: Reports: weakness Allergies: Coded Allergies: HALOPERIDOL (Verified Allergy, Unknown, 06/16/17) All Systems: reviewed and negative except above Subjective o2nc sleepy Objective Last 24 Hour Vital Signs Date Time Temp Pulse Resp B/P (MAP) Pulse Ox O2 Delivery O2 Flow Rate FiO2 12/01/17 14:00 73 108/56 12/01/17 12:01 98.5 73 20 108/56 95 Nasal Cannula 98.5 12/01/17 10:24 73 18 97 Nasal Cannula 2.0 28 12/01/17 10:19 76 20 90 Nasal Cannula 2.0 28 12/01/17 09:58 98.5 12/01/17 09:28 98.5 12/01/17 08:15 98.5 70 20 99/56 96 Nasal Cannula 2.0 98.5 12/01/17 07:44 96 Nasal Cannula 3.0 32 12/01/17 07:44 82 18 Nasal Cannula 3.0 32 12/01/17 07:44 Nasal Cannula 3.0 32 12/01/17 05:47 71 97/59 12/01/17 04:00 98.4 79 16 102/58 95 Nasal Cannula 2.0 98.4 12/01/17 00:00 98.8 70 15 98/52 96 Nasal Cannula 2.0 98.8 11/30/17 22:03 98.3 6/19/18 21:56 69 97/55 11/30/17 21:04 98.3 11/30/17 20:05 80 20 Nasal Cannula 3.0 32 11/30/17 20:05 96 Nasal Cannula 3.0 32 11/30/17 20:05 Nasal Cannula 3.0 32 11/30/17 20:00 98.3 89 20 99/61 95 Nasal Cannula 2.0 98.3 11/30/17 17:47 79 18 98 Nasal Cannula 2.0 28 11/30/17 17:37 90 20 92 Nasal Cannula 1.0 24 11/30/17 16:54 98.4 11/30/17 15:44 98.4 80 18 118/53 93 98.4 Intake and Output 11/30/17 12/01/17 19:00 07:00 Intake Total 220 ml 540 ml Output Total 1850 ml 1000 ml Balance -1630 ml -460 ml Intake Oral 220 ml 540 ml Output Urine Total 1850 ml 700 ml Stool Total 300 ml Laboratory Tests 12/01/17 05:30: White Blood Count 5.2, Red Blood Count 4.13L, Hemoglobin 12.6, Hematocrit 38.9, Mean Corpuscular Volume 94, Mean Corpuscular Hemoglobin 30.6, Mean Corpuscular Hemoglobin Concent 32.4, Red Cell Distribution Width 12.6, Platelet Count 147L, Mean Platelet Volume 5.9L, Neutrophils (%) (Auto) 63.2, Lymphocytes (%) (Auto) 24.3, Monocytes (%) (Auto) 10.5H, Eosinophils (%) (Auto) 0.2, Basophils (%) ( Auto) 1.8, Sodium Level 139, Potassium Level 4.2, Chloride Level 102, Carbon Dioxide Level 38H, Anion Gap -1L, Blood Urea Nitrogen 15, Creatinine 0.7, Estimat Glomerular Filtration Rate , Glucose Level 84, Calcium Level 8.0L, Phosphorus Level 3.4, Magnesium Level 2.1, Total Bilirubin 0.6, Aspartate Amino Transf (AST/SGOT) 112H, Alanine Aminotransferase (ALT/SGPT) 101H, Alkaline Phosphatase 81, Total Protein 5.7L, Albumin 2.6L, Globulin 3.1, Albumin/ Globulin Ratio 0.8L Height (Feet): 5 Height (Inches): 4.00 Weight (Pounds): 292 General Appearance: lethargic EENT: normal ENT inspection Neck: normal alignment Cardiovascular: normal peripheral pulses, normal rate, regular rhythm Respiratory/Chest: chest wall non-tender, lungs clear, normal breath sounds Abdomen: normal bowel sounds, non tender, soft Extremities: normal inspection Edema: 1+ Arm (L), 1+ Arm (R), 1+ Leg (L), 1+ Leg (R), 1+ Pedal (L), 1+ Pedal ( R), 1+ Generalized Edema: trace edema Neurologic: motor weakness Skin: normal pigmentation, warm/dry Bill Lane DO Dec 01, 2017 15:16
[2017-12-01] MEDS ORDERED: ACETAMINOPHEN325 M1 ORAL (15:38)
[2017-12-01] MEDS ORDERED: LIDODERM700 M1 TOPIC (15:41)
--- NOTE | 2017-12-01 15:46 | Cardiology Report ---
APPROVED REPORT EXAM: Two-dimensional and M-mode echocardiogram with Doppler and color Doppler. INDICATION Left Ventricular Function M-Mode DIMENSIONS IVSd1.4 (0.7-1.1cm)Left Atrium (MM)4.5 (1.6-4.0cm) LVDd2.8 (3.5-5.6cm)Aortic Root2.6 (2.0-3.7cm) PWd3.0 (0.7-1.1cm)Aortic Cusp Exc.1.0 (1.5-2.0cm) LVDs1.5 (2.5-4.0cm) PWs2.4 cm Technically difficult study due to patient body habitus. Study quality precludes accurate assessment of regional wall motion. Normal left ventricular chamber size, systolic function and wall motion. Left ventricular ejection fraction estimated to be 55 %. Mild left ventricular hypertrophy. Anterior Echo-free space, may be due to pericardial fat or effusion. Mild left atrial enlargement. Right cardiac chamber sizes are within normal limits. Aortic valve calcification with decreased cusp excursion c/w aortic stenosis. Mildly thickened mitral valve leaflets with normal excursion. Mild mitral annulus and aortic root calcification. Pulmonic valve not well visualized. Normal tricuspid valve structure. IVC dilated at 2.7 cm with partial physiological collapse, estimated RAP is 20 mmHg. A color flow and spectral Doppler study was performed and revealed: Trace aortic insufficiency. Peak aortic valve gradient of 16 mmHg and a mean of 9 mmHg. Aortic valve area 1.4 cm2 calculated by continuity equation. Mild mitral regurgitation. Mitral diastolic velocities suggest mild left ventricular diastolic dysfunction (Vitaly I). Trace tricuspid regurgitation. Tricuspid systolic velocities suggests peak right ventricular systolic pressure of 42 mmHg, consistent with mild pulmonary hypertension.
[2017-12-01] MEDS ORDERED: NICODERM 7MG/24H1 EA TD (15:47)
[2017-12-01] MEDS ORDERED: NICOTINE PATCH1 EAC5 TD ×2 (15:47)
[2017-12-01] MEDS ORDERED: POLYETHYLENE GL17 GM ORAL (15:48)
[2017-12-01 16:00] VITALS: BP 123/75
--- NOTE | 2017-12-01 16:02 | Infectious Diseases Prog Note ---
Assessment/Plan Assessment/Plan Abx: Ceftriaxone x1 11/28 Assessment: SOB; improving CHF exacerbation -CXR: Cardiomegaly with pulmonary vascular congestion/mild interstitial edema. B/l LE edema- edema improved, now signs of R leg cellulitis,mild Afebrile, no leukocytosis hx of acute resp failure and PNA 06/2017 -sp cx normal frank CHF GERD peripheral neuropathy HTN COPD CAD/VA schizophrenia Plan: -Start PO Keflex 500mg qid for 5 days; ok to discharge from ID perspective -11/28 SP Ceftriaxone x1 06/23 SP Levaquin #5 06/22 SP Ceftriaxone #5 06/18/17 SP Zosyn #3 and Tamiflu #2 -f/u cx -Monitor CBC/CMP, temperatures -aspiration precautions -f/u v duplex Thank you for this consultation. Will continue to follow along with you. Discussed with RN. Subjective Allergies: Coded Allergies: HALOPERIDOL (Verified Allergy, Unknown, 06/16/17) Subjective afebrile no leukocytosis Bcx NTD Objective Vital Signs Last 24 Hour Vital Signs Date Time Temp Pulse Resp B/P (MAP) Pulse Ox O2 Delivery O2 Flow Rate FiO2 12/01/17 14:00 73 108/56 12/01/17 12:01 98.5 73 20 108/56 95 Nasal Cannula 98.5 12/01/17 10:24 73 18 97 Nasal Cannula 2.0 28 12/01/17 10:19 76 20 90 Nasal Cannula 2.0 28 12/01/17 09:58 98.5 12/01/17 09:28 98.5 12/01/17 08:15 98.5 70 20 99/56 96 Nasal Cannula 2.0 98.5 12/01/17 07:44 96 Nasal Cannula 3.0 32 12/01/17 07:44 82 18 Nasal Cannula 3.0 32 12/01/17 07:44 Nasal Cannula 3.0 32 12/01/17 05:47 71 97/59 12/01/17 04:00 98.4 79 16 102/58 95 Nasal Cannula 2.0 98.4 12/01/17 00:00 98.8 70 15 98/52 96 Nasal Cannula 2.0 98.8 11/30/17 22:03 98.3 11/30/17 21:56 69 97/55 11/30/17 21:04 98.3 11/30/17 20:05 80 20 Nasal Cannula 3.0 32 11/30/17 20:05 96 Nasal Cannula 3.0 32 11/30/17 20:05 Nasal Cannula 3.0 32 11/30/17 20:00 98.3 89 20 99/61 95 Nasal Cannula 2.0 98.3 11/30/17 17:47 79 18 98 Nasal Cannula 2.0 28 11/30/17 17:37 90 20 92 Nasal Cannula 1.0 24 11/30/17 16:54 98.4 Height (Feet): 5 Height (Inches): 4.00 Weight (Pounds): 292 Objective General Appearance: normal inspection, well appearing, no apparent distress, alert, GCS 15, non-toxic, obese HEENT: normocephalic, atraumatic, normal ENT inspection Neck: normal inspection, full range of motion, supple, no bony tend Respiratory: normal inspection, no respiratory distress, no retraction, wheezing Cardiovascular : regular rate, rhythm, edema - 3+ Gastrointestinal: normal inspection, normal bowel sounds, non tender, soft, no guarding, no hernia Genitourinary: no CVA tenderness Musculoskeletal: normal inspection, back normal, normal range of motion Skin: no rash, other - b/l LE swelling (improved); R leg with mild erythema, warmth Microbiology Date/Time Source Procedure Growth Status 11/28/17 17:40 Blood Blood Culture - Preliminary NO GROWTH AFTER 48 HOURS Resulted 11/28/17 17:30 Blood Blood Culture - Preliminary NO GROWTH AFTER 48 HOURS Resulted Laboratory Tests Test 12/01/17 05:30 White Blood Count 5.2 K/UL (4.8-10.8) Red Blood Count 4.13 M/UL (4.20-5.40) L Hemoglobin 12.6 G/DL (12.0-16.0) Hematocrit 38.9 % (37.0-47.0) Mean Corpuscular Volume 94 FL (80-99) Mean Corpuscular Hemoglobin 30.6 PG (27.0-31.0) Mean Corpuscular Hemoglobin Concent 32.4 G/DL (32.0-36.0) Red Cell Distribution Width 12.6 % (11.6-14.8) Platelet Count 147 K/UL (150-450) L Mean Platelet Volume 5.9 FL (6.5-10.1) L Neutrophils (%) (Auto) 63.2 % (45.0-75.0) Lymphocytes (%) (Auto) 24.3 % (20.0-45.0) Monocytes (%) (Auto) 10.5 % (1.0-10.0) H Eosinophils (%) (Auto) 0.2 % (0.0-3.0) Basophils (%) (Auto) 1.8 % (0.0-2.0) Sodium Level 139 MMOL/L (136-145) Potassium Level 4.2 MMOL/L (3.5-5.1) Chloride Level 102 MMOL/L (98-107) Carbon Dioxide Level 38 MMOL/L (21-32) H Anion Gap -1 mmol/L (5-15) L Blood Urea Nitrogen 15 mg/dL (7-18) Creatinine 0.7 MG/DL (0.55-1.30) Estimat Glomerular Filtration Rate mL/min (>60) Glucose Level 84 MG/DL (74-106) Calcium Level 8.0 MG/DL (8.5-10.1) L Phosphorus Level 3.4 MG/DL (2.5-4.9) Magnesium Level 2.1 MG/DL (1.8-2.4) Total Bilirubin 0.6 MG/DL (0.2-1.0) Aspartate Amino Transf (AST/SGOT) 112 U/L (15-37) H Alanine Aminotransferase (ALT/SGPT) 101 U/L (12-78) H Alkaline Phosphatase 81 U/L (46-116) Total Protein 5.7 G/DL (6.4-8.2) L Albumin 2.6 G/DL (3.4-5.0) L Globulin 3.1 g/dL Albumin/Globulin Ratio 0.8 (1.0-2.7) L Current Medications Medications (Trade) Dose Ordered Sig/Marleni Route PRN Reason Start Time Stop Time Status Last Admin Dose Admin Acetaminophen (Tylenol) 650 mg Q4H PRN ORAL Fever 11/30/17 13:30 12/28/17 13:29 Acetaminophen/ Hydrocodone Bitart ([place] 10/325) 1 tab Q4H PRN ORAL For Pain 11/30/17 13:30 12/05/17 13:29 11/30/17 21:04 Albuterol/ Ipratropium (Albuterol/ Ipratropium) 3 ml Q4H PRN HHN Shortness of Breath 11/30/17 13:30 12/03/17 13:29 12/01/17 10:19 Dextrose (Dextrose 50%) 25 ml STAT PRN IV Hypoglycemia 11/30/17 13:30 12/28/17 13:29 Dextrose (Dextrose 50%) 50 ml STAT PRN IV Hypoglycemia 11/30/17 13:30 12/29/17 13:29 Diltiazem HCl (Cardizem) 60 mg EVERY 8 HOURS ORAL 11/30/17 14:00 12/28/17 21:59 Divalproex Sodium (Depakote) 500 mg Q12HR ORAL 11/30/17 21:00 12/28/17 20:59 12/01/17 08:59 Furosemide (Lasix) 40 mg DAILY IV 12/01/17 09:00 12/28/17 21:59 12/01/17 08:59 Heparin Sodium (Porcine) (Heparin 5000 units/ml) 5,000 units EVERY 12 HOURS SUBQ 11/30/17 21:00 12/28/17 20:59 12/01/17 09:01 Ketorolac Tromethamine (Toradol 30mg) 15 mg Q6H PRN IV For severe pain >7 11/30/17 13:30 12/03/17 13:29 12/01/17 09:28 Levothyroxine Sodium (Synthroid) 25 mcg ACBREAKFAST ORAL 12/01/17 06:30 12/29/17 06:29 12/01/17 06:40 Lidocaine (Lidoderm 5% PATCH) 1 patch DAILY TDERMAL 12/01/17 09:00 12/30/17 08:59 12/01/17 09:00 Nicotine (Nicoderm) 1 patch Q24H TDERMAL 11/30/17 18:00 12/29/17 17:59 11/30/17 17:31 Ondansetron HCl (Zofran) 4 mg Q6H PRN IVP Nausea & Vomiting 11/30/17 13:30 12/28/17 13:29 Polyethylene Glycol (Miralax) 17 gm DAILYPRN PRN ORAL Constipation 11/30/17 13:30 12/28/17 13:29 Risperidone (RisperDAL) 2 mg DAILY ORAL 12/01/17 09:00 12/29/17 08:59 12/01/17 08:59 Temazepam (Restoril) 15 mg HSPRN PRN ORAL Insomnia 11/30/17 20:15 12/05/17 20:14 11/30/17 22:46 Ange Grant M.D. Dec 01, 2017 16:01
[2017-12-01] MEDS: HYDROcodone/Acetamin 10/325 tab ORAL PRN (16:58)
[2017-12-01] MEDS ORDERED: CEPHALEXIN500 MG ORAL ×2 (17:09→17:22)
[2017-12-01] MEDS ORDERED: Promethazine/Codeine 5ml UD ORAL PRN (17:30)
[2017-12-01 20:00] VITALS: BP 104/75
--- NOTE | 2017-12-02 08:24 | Discharge Summary ---
Discharge Summary Discharge Summary _ DATE OF ADMISSION: 11/28/2017 DATE OF DISCHARGE: 12/01/2017 REASON FOR ADMISSION: 72 years old female with past medical history significant for hypertension, COPD ,GERD, peripheral neuropathy, morbid obesity, schizophrenia, presented from the retirement facility for evaluation due to shortness of breath. Patient gradually ,over the last 2 weeks, developed shortness of breath and increased bilateral lower extremity edema. Patient apparently was on diuretic regimen, which recently was stopped. Upon evaluation in emergency room , patient was afebrile, no leukocytosis . Troponin was negative, pro BNP 132 . EKG revealed normal sinus rhythm with premature atrial compresses. Urinalysis was negative. Chest x-ray revealed cardiomegaly and pulmonary vascular congestion. Patient was admitted with diagnosis of congestive heart failure, COPD, hypertension, peripheral edema. CONSULTANTS: pulmonary Dr. Gan ID specialist Dr. Bernstein Pain specialist Dr. Hicks [facility]: Patient admitted on telemetry floor. Supplemental oxygen provided as needed to keep pulse oximetry above 92%. Pulmonary toilet provided as needed. Patient started on IV diuresis. Cardiorenal parameters and volumes were closely monitored. Echocardiogram revealed preserved ejection fraction of 55%, evidence of aortic stenosis, mild mitral regurgitation and right ventricular systolic pressure of 42 consistent with mild pulmonary hypertension. Patient likely had obstructive sleep apnea. Recommended sleep study as outpatient. Venous duplex bilateral lower extremity was ordered, but patient declined. Blood pressure was managed with Cardizem and remained stable. DVT, GI prophylaxis provided. Infectious disease specialist followed for possible cellulitis . Patient had a mild cellulitis right lower extremity. Blood cultures were negative. Patient started on oral antibiotics and to be complete at the retirement [facility] for total duration of therapy for 5 days. Pain specialist followed . Pain management was addressed and provided as per pain specialist recommendations. Pain was controlled. Psychiatric medications resumed. Supportive care provided Patient was working with a physical and occupational therapists. Fall precautions were maintained. Patient was stabilized and was ready for discharge back to retirement facility FINAL DIAGNOSES: CHF exacerbation Peripheral edema Mild cellulitis right lower extremity COPD Hypertension Likely obstructive sleep apnea Morbid obesity Lumbago Peripheral neuropathy DISCHARGE MEDICATIONS: See Medication Reconciliation list. DISCHARGE INSTRUCTIONS: Patient was discharged to retirement facility. Follow up with medical doctor at the facility. I have been assigned to dictate discharge summary for this account. I was not involved in the patient's management. Sharon Gimenez NP Dec 02, 2017 08:24
== END 2017-12-01 21:15 | DRG 292 ==
LOC: EDBD 16:14 → EMR 16:59 → EDBEDREQ 19:13 → 2E 19:53 → 4W 11-30 13:25
DX: I11.0 Hypertensive heart disease with heart failure (principal); L03.115 Cellulitis of right lower limb; I50.9 Heart failure, unspecified; G47.33 Obstructive sleep apnea (adult) (pediatric); J44.9 Chronic obstructive pulmonary disease, unspecified; E66.01 Morbid (severe) obesity due to excess calories; M54.5 Low back pain; G62.9 Polyneuropathy, unspecified; I25.10 Atherosclerotic heart disease of native coronary artery without angina pectoris; I25.2 Old myocardial infarction; F20.9 Schizophrenia, unspecified; K21.9 Gastro-esophageal reflux disease without esophagitis; Z88.8 Allergy status to other drugs, medicaments and biological substances; E03.9 Hypothyroidism, unspecified; F17.200 Nicotine dependence, unspecified, uncomplicated; I35.0 Nonrheumatic aortic (valve) stenosis; I34.0 Nonrheumatic mitral (valve) insufficiency; I27.20 Pulmonary hypertension, unspecified
CPT/HCPCS: 36415; 71045; 72020; 80048; 80053; 80069; 81003; 82550; 82553; 83605; 83735; 83880; 84100; 84484; 85025; 85610; 85730; 86140; 87040; 87081; 93005; 93306; 94640; 94664; 94760; 97803; 99285; J7620

== ENCOUNTER 2018-04-05 16:39 | Inpatient (IN) | payer MEDICARE, OTHER ==
[~2018-04-05] VITALS: Ht 162.6 cm; Wt 115.7 kg
[~2018-04-05 16:39] MED LIST changes: +CARDIZEM60 MG ORAL; +CEPHALEXIN500 MG ORAL; +DEPAKOTE ER500 MG ORAL; +DIVALPROEX SOD500 MG PO; +LEVOTHYROXINE75 MCG ORAL; +LIDODERM700 M1 TOPIC; +LOVENOX10 MG SUBQ; +NICODERM 7MG/24H1 EA TD; +NICOTINE PATCH1 EAC5 TD; +POLYETHYLENE GL17 GM ORAL; +PREDNISONE10 MG ORAL; +PREDNISONE5 M4 PO; +PROMETH-CODEIN 65 ML PO; +RISPERDAL2 MG ORAL; +SYNTHROID200 MC1 IV; +TEMAZEPAM15 MG ORAL; +[UNRECOGNIZED DRUG - OTHER] PO
[2018-04-05 16:43] VITALS: BP 141/70
[2018-04-05] MEDS ORDERED: Ipratropium 0.02% Inh Soln 2.5ml UD HHN ONE (16:45)
[2018-04-05] MEDS ORDERED: Albuterol ud Inhalation HHN ONE (16:45)
[2018-04-05] MEDS ORDERED: Morphine Sulfate 2mg/ml Inj IVP ONE (16:45)
[2018-04-05] MEDS ORDERED: LEVOTHYROXINE75 MCG ORAL (16:51)
[2018-04-05] MEDS ORDERED: FUROSEMIDE20 M1 ORAL (16:51)
[2018-04-05] MEDS ORDERED: NORCO 5-325 TA1 EACH ORAL (16:51)
[2018-04-05] MEDS ORDERED: DILTIAZEM HCL60 MG PO (16:51)
--- NOTE | 2018-04-05 17:11 | Emergency Room Report ---
History of Present Illness General Chief Complaint: Abnormal Labs Source: Patient, EMS Present Illness HPI Patient was sent in by her private physician. Apparently her white count is 14, 000 and her TSH is high. The patient is complaining about some shortness of breath and back pain. She has chronic back pain. There is no nausea vomiting diarrhea. She denies any dysuria. The patient has a history of smoking in the past. Pain rated 8/10 in lower back, constant. She also has a history of schizophrenia. Allergies: Coded Allergies: HALOPERIDOL (Verified Allergy, Unknown, 06/16/17) Patient History Past Medical History: see triage record Social History: Denies: smoking - Prior Social History Narrative prison facility Reviewed Nursing Documentation: PMH: Agreed; PSxH: Agreed Nursing Documentation-PMH Hx Cardiac Problems: Yes - Heart Failure Hx Hypertension: Yes Hx COPD: Yes Hx Cancer: No History Of Psychiatric Problem: Yes - schizo Hx Peripheral Neuropathy: Yes Review of Systems All Other Systems: negative except mentioned in HPI Physical Exam Vital Signs Date Time Temp Pulse Resp B/P (MAP) Pulse Ox O2 Delivery O2 Flow Rate FiO2 04/05/18 16:33 98.0 83 24 141/70 93 Nasal Cannula 3.0 98.1 Sp02 EP Interpretation: reviewed, abnormal - low as interpreted by me (90% RA) General Appearance: well appearing, no apparent distress, GCS 15 Head: normocephalic Eyes: bilateral eye normal inspection, bilateral eye PERRL ENT: moist mucus membranes Neck: supple Respiratory: wheezing, expiration Cardiovascular #1: tachycardia Cardiovascular #2: 2+ radial (R) Gastrointestinal: normal inspection, normal bowel sounds, non tender, no mass, non-distended, overweight Genitourinary: no CVA tenderness Musculoskeletal: back normal, gait/station normal, normal range of motion Neurologic: alert, motor strength/tone normal, DTRs symmetric - decreased, sensory intact, oriented - X2 Psychiatric: no suicidal/homicidal ideation - flat affect Skin: normal inspection, warm/dry Medical Decision Making Diagnostic Impression: Primary Impression: UTI (urinary tract infection) Qualified Codes: N39.0 - Urinary tract infection, site not specified Additional Impressions: COPD exacerbation Pleural effusion, left Elevated WBC count Qualified Codes: D72.828 - Other elevated white blood cell count ER Course Patient presents with alleged abnormal labs with tachycardia and wheezing. DDX : pneumonia, UTI, sepsis, hypothyroidism, electrolyte abnormality, PE, AMI amongst others. Evaluation with EKG, CXR, labs. Treatment with breathing treatments and IV hydration. EKG ST with PACs. CXR with L effusion, cannot exclude infiltrate. WBC elevated. Increase bicarb. Pyuria. Thyroid function essentially normal with minimally low T3. Lactate high normal. Antibiotics begun for urine and possible lung infiltrate. Patient BP transiently low. Fluid bolus with improvement. Variable tachycardia. EKG repeated: NSR with PACs, rate 99, NSSTTW changes. Admit tele Dr. Lane. Laboratory Tests Test 04/05/18 17:25 04/05/18 18:20 04/05/18 19:30 White Blood Count 15.4 K/UL (4.8-10.8) H Red Blood Count 4.63 M/UL (4.20-5.40) Hemoglobin 15.5 G/DL (12.0-16.0) Hematocrit 43.1 % (37.0-47.0) Mean Corpuscular Volume 93 FL (80-99) Mean Corpuscular Hemoglobin 33.5 PG (27.0-31.0) H Mean Corpuscular Hemoglobin Concent 35.9 G/DL (32.0-36.0) Red Cell Distribution Width 11.9 % (11.6-14.8) Platelet Count 168 K/UL (150-450) Mean Platelet Volume 6.7 FL (6.5-10.1) Neutrophils (%) (Auto) 69.7 % (45.0-75.0) Lymphocytes (%) (Auto) 20.1 % (20.0-45.0) Monocytes (%) (Auto) 7.0 % (1.0-10.0) Eosinophils (%) (Auto) 2.3 % (0.0-3.0) Basophils (%) (Auto) 1.0 % (0.0-2.0) Prothrombin Time 10.0 SEC (9.30-11.50) Prothrombin Time INR 0.9 (0.9-1.1) PTT 22 SEC (23-33) L Sodium Level 136 MMOL/L (136-145) Potassium Level 4.5 MMOL/L (3.5-5.1) Chloride Level 97 MMOL/L (98-107) L Carbon Dioxide Level 37 MMOL/L (21-32) H Anion Gap 2 mmol/L (5-15) L Blood Urea Nitrogen 20 mg/dL (7-18) H Creatinine 0.7 MG/DL (0.55-1.30) Estimate Glomerular Filtration Rate mL/min (>60) Glucose Level 141 MG/DL (74-106) H Lactic Acid Level 2.00 mmol/L (0.4-2.0) 1.30 mmol/L (0.66-2.22) Calcium Level 8.7 MG/DL (8.5-10.1) Total Bilirubin 0.7 MG/DL (0.2-1.0) Aspartate Amino Transferase (AST) 11 U/L (15-37) L Alanine Aminotransferase (ALT) 37 U/L (12-78) Alkaline Phosphatase 58 U/L (46-116) Total Creatine Kinase 13 U/L (26-308) L Troponin I 0.002 ng/mL (0.000-0.056) Pro-B-Type Natriuretic Peptide 174 pg/mL (0-125) H Total Protein 5.5 G/DL (6.4-8.2) L Albumin 2.6 G/DL (3.4-5.0) L Globulin 2.9 g/dL Albumin/Globulin Ratio 0.9 (1.0-2.7) L Thyroid Stimulating Hormone (TSH) 2.941 uiU/mL (0.358-3.740) Free Thyroxine 0.83 NG/DL (0.76-1.46) Free Triiodothyronine 1.8 pg/mL (2.3-4.2) L Urine Color Yellow Urine Appearance Clear Urine pH 7 (4.5-8.0) Urine Specific [place] 1.015 (1.005-1.035) Urine Protein Negative (NEGATIVE) Urine Glucose (UA) Negative (NEGATIVE) Urine Ketones 1+ (NEGATIVE) H Urine Blood 5+ (NEGATIVE) H Urine Nitrite Negative (NEGATIVE) Urine Bilirubin Negative (NEGATIVE) Urine Urobilinogen Normal MG/DL (0.0-1.0) Urine Leukocyte Esterase 2+ (NEGATIVE) H Urine RBC 10-15 /HPF (0 - 2) H Urine WBC 20-30 /HPF (0 - 2) H Urine Squamous Epithelial Cells Occasional /LPF Urine Bacteria Few /HPF (NONE) EKG Diagnostic Results Rate: tachycardiac ST Segments: no acute changes Rhythm Strip Diag. Results EP Interpretation: yes Rhythm: no PVC's, no ectopy Chest X-Ray Diagnostic Results Chest X-Ray Diagnostic Results : Chest X-Ray Ordered: Yes # of Views/Limited/Complete: 1 View Indication: Other Interpretation: no pneumothorax, other - L pleural effusion, sl inc cor. atelectasis, surgery L upper arm Impression: Other Electronically Signed by: Electronically signed by Kenrick Norton MD Last Vital Signs Date Time Temp Pulse Resp B/P (MAP) Pulse Ox O2 Delivery O2 Flow Rate FiO2 04/05/18 20:45 106 22 97/36 97 Nasal Cannula 3.0 04/05/18 18:36 98.6 98.6 04/05/18 17:12 32 Status: improved Disposition: ADMITTED INPATIENT Condition: Serious Kenrick Norton MD Apr 05, 2018 17:11
[2018-04-05 17:40] LABS: HEMATOCRIT 43.1 % (37.0-47.0); HEMOGLOBIN 15.5 G/DL (12.0-16.0); MEAN CORPUSCULAR VOLUME 93 FL (80-99); PLATELET COUNT 168 K/UL (150-450); RED BLOOD COUNT 4.63 M/UL (4.20-5.40); RED CELL DISTRIBUTION WIDTH 11.9 % (11.6-14.8); WHITE BLOOD COUNT 15.4 K/UL (4.8-10.8)
[2018-04-05 17:44] LABS: EOSINOPHILS % (AUTO) 2.3 % (0.0-3.0); LYMPHOCYTES % (AUTO) 20.1 % (20.0-45.0); NEUTROPHILS % (AUTO) 69.7 % (45.0-75.0)
[2018-04-05 17:50] LABS: INR 0.9 (0.9-1.1)
[2018-04-05 17:55] LABS: ANION GAP 2 mmol/L (5-15); BLOOD UREA NITROGEN 20 mg/dL (7-18); CALCIUM 8.7 MG/DL (8.5-10.1); CARBON DIOXIDE 37 MMOL/L (21-32); CHLORIDE 97 MMOL/L (98-107); CREATININE 0.7 MG/DL (0.55-1.30); POTASSIUM 4.5 MMOL/L (3.5-5.1); SODIUM 136 MMOL/L (136-145)
[2018-04-05 18:11] LABS: ALANINE AMINOTRANSFERASE 37 U/L (12-78); ALBUMIN 2.6 G/DL (3.4-5.0); ALBUMIN/GLOBULIN RATIO 0.9 (1.0-2.7); ALKALINE PHOSPHATASE 58 U/L (46-116); ASPARTATE AMINO TRANSFERASE 11 U/L (15-37); BILIRUBIN,TOTAL 0.7 MG/DL (0.2-1.0); CREATINE KINASE 13 U/L (26-308)
[2018-04-05 18:36] VITALS: BP 95/58
[2018-04-05 18:40] LABS: APPEARANCE,URINE CLEAR; BILIRUBIN, URINE NEGATIVE (NEGATIVE); COLOR,URINE YELLOW; GLUCOSE, URINE (UA) NEGATIVE (NEGATIVE); KETONES,URINE 1+ (NEGATIVE); LEUKOCYTE ESTERASE ,URINE 2+ (NEGATIVE); NITRITE,URINE NEGATIVE (NEGATIVE); PH,URINE 7 (4.5-8.0); PROTEIN,URINE NEGATIVE (NEGATIVE); UROBILINOGEN,URINE NORMAL MG/DL (0.0-1.0)
[2018-04-05] MEDS ORDERED: Albuterol/Ipratropium 3ml neb HHN PRN (19:45)
[2018-04-05] MEDS ORDERED: Miralax 17gm pkt ORAL PRN (19:45)
[2018-04-05] MEDS ORDERED: Nitroglycerin Subl 0.4mg tab SL PRN (19:45)
[2018-04-05] MEDS ORDERED: cefTRIAXone 1 GM in D5W 55 ML IVPB ONE (19:45)
[2018-04-05 20:45] VITALS: BP 97/36
[2018-04-05] MEDS ORDERED: Sodium Chloride 500ML 500 ML IV ONE (20:45)
[2018-04-05] MEDS: Cefepime HCl 2 GM in D5W 110 ML IV SCH (21:46)
[2018-04-05] MEDS: dilTIAZem HCl 60mg tab ORAL SCH (21:48)
[2018-04-05] MEDS: Vancomycin 750mg/NS 250ml IVPB SCH (21:49)
[2018-04-05] MEDS: Heparin 5000 units/ml inj SUBQ SCH (21:50)
[2018-04-06] VITALS: BP 79/55
[2018-04-06] MEDS ORDERED: Vancomycin 1 GM in D5W 275 ML IV SCH (00:30)
[2018-04-06] MEDS: LORazepam 1mg tab ORAL PRN ×2 (00:58→19:50)
[2018-04-06 04:00] VITALS: BP 101/69
[2018-04-06] MEDS: dilTIAZem HCl 60mg tab ORAL SCH ×2 (06:06→13:58)
[2018-04-06 08:00] VITALS: BP 134/76
[2018-04-06] MEDS: Cefepime HCl 2 GM in D5W 110 ML IV SCH (08:30)
--- NOTE | 2018-04-06 08:38 | Diagnostic Imaging Report ---
Indication: Shortness of breath Technique: One view of the chest Comparison: 11/28/2017 Findings: Left basilar opacity, not evident previously, likely reflects atelectasis, pleural fluid, or combination of both. The heart is borderline enlarged. The aorta is tortuous and calcified. Surgical hardware is seen in the left shoulder Impression: Left basilar opacity, likely atelectasis, pleural fluid, or combination of both
[2018-04-06] MEDS ORDERED: Depakote 500mg tab ORAL SCH (09:00)
[2018-04-06] MEDS: Vancomycin 750mg/NS 250ml IVPB SCH (09:24)
[2018-04-06] MEDS: Heparin 5000 units/ml inj SUBQ SCH ×2 (09:27→20:53)
--- NOTE | 2018-04-06 11:11 | Consultation ---
History of Present Illness General Date patient seen: Apr 06, 2018 Chief Complaint: Abnormal Labs Present Illness HPI 72-year-old female with hx of CHF, COPD, morbid obesity, hypothyroid, brought in by EMS from alf with CC of difficulty breathing . She had leukocytosis. and bilateral infiltrate on CXR and is admitted for further work up. she is sitting up in the chair, seems slightly SOB and tachycardic. Allergies: Coded Allergies: HALOPERIDOL (Verified Allergy, Unknown, 06/16/17) Medication History Scheduled Cephalexin* (Keflex*), 500 MG ORAL QID, (Reported) Diltiazem Hcl (Diltiazem Hcl), 60 MG PO Q8HR, (Reported) Diltiazem Hcl* (Cardizem*), 60 MG ORAL EVERY 8 HOURS, (Reported) Divalproex Sodium (Divalproex Sodium), 500 MG PO BID, (Reported) Enoxaparin* (Lovenox*), 30 MG SUBQ DAILY, (Reported) Furosemide* (Lasix*), 20 MG ORAL DAILY, (Reported) Heparin Sod (Porcine) (Heparin Sodium*), 5,000 UNITS SUBQ EVERY 12 HOURS, ( Reported) Levothyroxine Sodium (Levothyroxine Sodium), 25 MCG IV DAILY, (Reported) Levothyroxine Sodium* (Levothyroxine Sodium*), 25 MCG ORAL DAILY, (Reported) Levothyroxine Sodium* (Levothyroxine Sodium*), 75 MCG ORAL DAILY, (Reported) Levothyroxine Sodium* (Levothyroxine Sodium*), 25 MCG ORAL DAILY, (Reported) Lidocaine (Lidoderm), 1 PATCH TOPIC DAILY, (Reported) Nicotine (Nicotine Patch), 1 EA TD DAILY, (Reported) Nicotine (Nicotine Patch), 1 EACH TD DAILY, (Reported) Polyethylene Glycol 3350* (Polyethylene Glycol 3350*), 17 GM ORAL DAILY, ( Reported) Prednisone* (Prednisone*), 30 MG ORAL DAILY, (Reported) Risperidone* (Risperdal*), 2 MG ORAL DAILY, (Reported) Sennosides (Senna), 17.2 MG PO QHS, (Reported) [riperidone], 4 MG PO HS, (Reported) Scheduled PRN Acetaminophen* (Tylenol Extra Strength*), 650 MG ORAL Q4HR PRN for Mild Pain ( Pain Scale 1-3), (Reported) Acetaminophen* (Acetaminophen 325MG Tablet*), 650 MG ORAL Q4H PRN for TEMP <101, (Reported) Acetaminophen* (Acetaminophen 325MG Tablet*), 650 MG ORAL Q4H PRN for For Pain, (Reported) Hydrocodone Bit/Acetaminophen 10-325* (Arnold 10-325*), 1 TAB ORAL Q4H PRN for For Pain, (Reported) Hydrocodone Bit/Acetaminophen 5-325* (Arnold 5-325*), 1 TAB ORAL EVERY 12 HOURS PRN for For Pain, (Reported) Lorazepam* (Lorazepam*), 1 MG ORAL Q6HR PRN for For Anxiety, (Reported) Nicotine (Nicotine Patch), 1 EA TD DAILY PRN for 21mg, (Reported) Nitroglycerin (Nitrostat), 0.4 MG SL Q5M X3 DOSES PRN for CHEST PAIN, (Reported) Ondansetron Odt* (Zofran Odt*), 4 MG ORAL Q6H PRN for Nausea & Vomiting, ( Reported) Promethazine HCl/Codeine (Prometh-Codein 6.25-10 mg/5 ml), 10 ML PO Q8HR PRN for For Cough, (Reported) Temazepam (Temazepam*), 15 MG ORAL BEDTIME PRN for Insomnia, (Reported) Miscellaneous Medications Ipratropium/Albuterol Sulfate (DuoNeb 0.5-3(2.5)mg/3ml), 3 ML HHN, (Reported) Nicotine (Nicotine Patch), 1 EACH TD, (Reported) Patient History Healthcare decision maker Resuscitation status Full Code Advanced Directive on File Past Medical/Surgical History Past Medical/Surgical History: (1) MELVIN (obstructive sleep apnea) (2) Obese (3) HTN (hypertension) (4) COPD (chronic obstructive pulmonary disease) Review of Systems Respiratory: Reports: orthopnea All Other Systems: negative except mentioned in HPI Physical Exam General Appearance: WD/WN, obese Lines, tubes and drains: peripheral HEENT: normocephalic, atraumatic Neck: non-tender, normal alignment Respiratory/Chest: rhonchi - bilaterally, rhonchi - right Cardiovascular/Chest: normal peripheral pulses, normal rate Abdomen: normal bowel sounds, non tender, soft Genitourinary/Rectal: normal genital exam, normal rectal exam Extremities: normal range of motion, non-tender Skin Exam: normal pigmentation 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 Last 24 Hour Vital Signs Date Time Temp Pulse Resp B/P (MAP) Pulse Ox O2 Delivery O2 Flow Rate FiO2 04/06/18 08:00 100 04/06/18 08:00 97.9 87 19 134/76 (95) 98 97.9 04/06/18 07:45 73 20 Nasal Cannula 2.0 28 04/06/18 07:45 95 Nasal Cannula 2.0 28 04/06/18 07:45 Nasal Cannula 2.0 28 04/06/18 06:06 96 101/69 04/06/18 04:00 98.0 89 19 101/69 (80) 97 98.0 04/06/18 04:00 96 04/06/18 01:30 98.6 04/06/18 00:00 97.9 74 18 79/55 (63) 94 97.9 04/06/18 00:00 85 04/05/18 22:00 Room Air 04/05/18 21:48 106 97/36 04/05/18 21:25 98.6 106 22 97/36 97 Nasal Cannula 3.0 32 98.6 04/05/18 20:45 106 22 97/36 97 Nasal Cannula 3.0 04/05/18 18:36 98.6 132 18 95/58 90 Nasal Cannula 3.0 98.6 04/05/18 17:59 98.6 04/05/18 17:29 98.1 04/05/18 17:12 135 32 99 Nasal Cannula 3.0 32 04/05/18 17:00 120 28 96 Nasal Cannula 3.0 32 04/05/18 17:00 118 31 Nasal Cannula 3.0 32 04/05/18 17:00 36 04/05/18 16:43 98.1 125 24 141/70 93 Nasal Cannula 3.0 98.1 04/05/18 16:33 98.0 83 24 141/70 93 Nasal Cannula 3.0 98.1 Intake and Output 04/05/18 04/06/18 19:00 07:00 Intake Total 480 ml Output Total 200 ml Balance -200 ml 480 ml Intake Oral 480 ml Output Urine Total 200 ml # Voids 1 Laboratory Tests Test 04/05/18 17:25 04/05/18 18:20 10/23/18 19:30 White Blood Count 15.4 K/UL (4.8-10.8) H Red Blood Count 4.63 M/UL (4.20-5.40) Hemoglobin 15.5 G/DL (12.0-16.0) Hematocrit 43.1 % (37.0-47.0) Mean Corpuscular Volume 93 FL (80-99) Mean Corpuscular Hemoglobin 33.5 PG (27.0-31.0) H Mean Corpuscular Hemoglobin Concent 35.9 G/DL (32.0-36.0) Red Cell Distribution Width 11.9 % (11.6-14.8) Platelet Count 168 K/UL (150-450) Mean Platelet Volume 6.7 FL (6.5-10.1) Neutrophils (%) (Auto) 69.7 % (45.0-75.0) Lymphocytes (%) (Auto) 20.1 % (20.0-45.0) Monocytes (%) (Auto) 7.0 % (1.0-10.0) Eosinophils (%) (Auto) 2.3 % (0.0-3.0) Basophils (%) (Auto) 1.0 % (0.0-2.0) Prothrombin Time 10.0 SEC (9.30-11.50) Prothromb Time International Ratio 0.9 (0.9-1.1) Activated Partial Thromboplast Time 22 SEC (23-33) L Sodium Level 136 MMOL/L (136-145) Potassium Level 4.5 MMOL/L (3.5-5.1) Chloride Level 97 MMOL/L (98-107) L Carbon Dioxide Level 37 MMOL/L (21-32) H Anion Gap 2 mmol/L (5-15) L Blood Urea Nitrogen 20 mg/dL (7-18) H Creatinine 0.7 MG/DL (0.55-1.30) Estimat Glomerular Filtration Rate mL/min (>60) Glucose Level 141 MG/DL (74-106) H Lactic Acid Level 2.00 mmol/L (0.4-2.0) 1.30 mmol/L (0.66-2.22) Calcium Level 8.7 MG/DL (8.5-10.1) Total Bilirubin 0.7 MG/DL (0.2-1.0) Aspartate Amino Transf (AST/SGOT) 11 U/L (15-37) L Alanine Aminotransferase (ALT/SGPT) 37 U/L (12-78) Alkaline Phosphatase 58 U/L (46-116) Total Creatine Kinase 13 U/L (26-308) L Troponin I 0.002 ng/mL (0.000-0.056) Pro-B-Type Natriuretic Peptide 174 pg/mL (0-125) H Total Protein 5.5 G/DL (6.4-8.2) L Albumin 2.6 G/DL (3.4-5.0) L Globulin 2.9 g/dL Albumin/Globulin Ratio 0.9 (1.0-2.7) L Thyroid Stimulating Hormone (TSH) 2.941 uiU/mL (0.358-3.740) Free Thyroxine 0.83 NG/DL (0.76-1.46) Free Triiodothyronine 1.8 pg/mL (2.3-4.2) L Urine Color Yellow Urine Appearance Clear Urine pH 7 (4.5-8.0) Urine Specific [place] 1.015 (1.005-1.035) Urine Protein Negative (NEGATIVE) Urine Glucose (UA) Negative (NEGATIVE) Urine Ketones 1+ (NEGATIVE) H Urine Blood 5+ (NEGATIVE) H Urine Nitrite Negative (NEGATIVE) Urine Bilirubin Negative (NEGATIVE) Urine Urobilinogen Normal MG/DL (0.0-1.0) Urine Leukocyte Esterase 2+ (NEGATIVE) H Urine RBC 10-15 /HPF (0 - 2) H Urine WBC 20-30 /HPF (0 - 2) H Urine Squamous Epithelial Cells Occasional /LPF Urine Bacteria Few /HPF (NONE) Microbiology Date/Time Source Procedure Growth Status 04/05/18 18:20 Urine,Clean Catch Urine Culture - Preliminary NO GROWTH Resulted 04/05/18 18:40 Rectum VRE Culture Pending Resulted 04/05/18 18:40 Rectum - Preliminary Resulted Height (Feet): 5 Height (Inches): 4.00 Weight (Pounds): 255 Medications Current Medications Medications (Trade) Dose Ordered Sig/Marleni Route PRN Reason Start Time Stop Time Status Last Admin Dose Admin Acetaminophen (Tylenol) 650 mg Q4H PRN ORAL fever 04/05/18 19:45 05/05/18 19:44 04/06/18 00:59 Albuterol/ Ipratropium (Albuterol/ Ipratropium) 3 ml Q4H PRN HHN Shortness of Breath 04/05/18 19:45 04/10/18 19:44 Cefepime HCl 2 gm/ Dextrose 110 ml @ 220 mls/hr EVERY 12 HOURS IV 04/05/18 21:00 04/12/18 20:59 04/06/18 08:30 Digoxin (Lanoxin) 0.5 mg ONCE ORAL 04/06/18 11:00 04/06/18 12:00 Diltiazem HCl (Cardizem) 60 mg Q8HR ORAL 04/05/18 22:00 05/05/18 21:59 04/06/18 06:06 Divalproex Sodium (Depakote) 500 mg BID ORAL 04/06/18 09:00 05/06/18 08:59 04/06/18 09:24 Heparin Sodium (Porcine) (Heparin 5000 units/ml) 5,000 units EVERY 12 HOURS SUBQ 04/05/18 21:00 05/05/18 20:59 04/06/18 09:27 Levothyroxine Sodium (Synthroid) 75 mcg Q24H ORAL 04/06/18 06:30 05/06/18 06:29 04/06/18 06:06 Lorazepam (Ativan) 1 mg Q6H PRN ORAL For Anxiety 04/05/18 19:45 04/12/18 19:44 04/06/18 00:58 Morphine Sulfate (Morphine Sulfate) 2 mg Q4H PRN IVP Moderate Pain (Pain Scale 4-6) 04/05/18 19:45 04/12/18 19:44 Nitroglycerin (Ntg) 0.4 mg Q5M PRN SL Prn Chest Pain 04/05/18 19:45 05/05/18 19:44 Ondansetron HCl (Zofran) 4 mg Q6H PRN IVP Nausea & Vomiting 04/05/18 19:45 05/05/18 19:44 Polyethylene Glycol (Miralax) 17 gm DAILYPRN PRN ORAL Constipation 04/05/18 19:45 05/05/18 19:44 Risperidone (RisperDAL) 2 mg DAILY ORAL 04/06/18 09:00 05/06/18 08:59 04/06/18 09:24 Temazepam (Restoril) 15 mg HSPRN PRN ORAL Insomnia 04/05/18 19:45 04/12/18 19:44 04/06/18 00:58 Vancomycin HCl (Vanco rx to dose) 1 ea DAILY PRN MISC PER PHARM 04/05/18 20:00 05/05/18 19:59 Vancomycin/Sodium Chloride 250 ml @ 166.667 mls/hr Q12HR IVPB 04/05/18 21:00 04/10/18 20:59 04/06/18 09:24 Assessment/Plan Problem List: (1) Aspiration pneumonia ICD Codes: J69.0 - Pneumonitis due to inhalation of food and vomit SNOMED: 957316297 (2) Sepsis ICD Codes: A41.9 - Sepsis, unspecified organism SNOMED: 93810476 (3) COPD exacerbation ICD Codes: J44.1 - Chronic obstructive pulmonary disease with (acute) exacerbation SNOMED: 924291041 (4) Obese ICD Codes: E66.9 - Obesity, unspecified SNOMED: 363629072, 132936569 (5) HTN (hypertension) ICD Codes: I10 - Essential (primary) hypertension SNOMED: 25307895 (6) MELVIN (obstructive sleep apnea) ICD Codes: G47.33 - Obstructive sleep apnea (adult) (pediatric) SNOMED: 72559970 Assessment/Plan respiratory treatment IV abx check sputum cultures titrate fio2 to sat of 92% dvt prophylaxis Echo a few month ago showed EF of 55% tachycardia is secondary to sepsis Fartun Gan MD Apr 06, 2018 11:11
[2018-04-06 11:47] VITALS: BP 110/57
[2018-04-06 13:43] LABS: BASOPHILS % (AUTO) 0.8 % (0.0-2.0); EOSINOPHILS % (AUTO) 0.5 % (0.0-3.0); HEMATOCRIT 39.1 % (37.0-47.0); HEMOGLOBIN 13.8 G/DL (12.0-16.0); LYMPHOCYTES % (AUTO) 23.7 % (20.0-45.0); MEAN CORPUSCULAR VOLUME 91 FL (80-99); MONOCYTES % (AUTO) 8.6 % (1.0-10.0); NEUTROPHILS % (AUTO) 66.4 % (45.0-75.0); PLATELET COUNT 148 K/UL (150-450); RED BLOOD COUNT 4.29 M/UL (4.20-5.40); RED CELL DISTRIBUTION WIDTH 12.4 % (11.6-14.8); WHITE BLOOD COUNT 8.3 K/UL (4.8-10.8)
[2018-04-06] MEDS ORDERED: dilTIAZem HCl 30mg tab ORAL SCH (14:00)
[2018-04-06 14:01] LABS: ALANINE AMINOTRANSFERASE 28 U/L (12-78); ALBUMIN 2.2 G/DL (3.4-5.0); ALBUMIN/GLOBULIN RATIO 0.9 (1.0-2.7); ALKALINE PHOSPHATASE 46 U/L (46-116); ANION GAP 1 mmol/L (5-15); ASPARTATE AMINO TRANSFERASE 10 U/L (15-37); BILIRUBIN,TOTAL 0.6 MG/DL (0.2-1.0); BLOOD UREA NITROGEN 15 mg/dL (7-18); CALCIUM 8.4 MG/DL (8.5-10.1); CARBON DIOXIDE 40 MMOL/L (21-32); CHLORIDE 101 MMOL/L (98-107); CREATININE 0.6 MG/DL (0.55-1.30); POTASSIUM 3.9 MMOL/L (3.5-5.1); SODIUM 142 MMOL/L (136-145)
[2018-04-06 16:00] VITALS: BP 112/55
[2018-04-06 16:35] LABS: APPEARANCE,URINE CLEAR; BILIRUBIN, URINE NEGATIVE (NEGATIVE); COLOR,URINE PALE YELLOW; GLUCOSE, URINE (UA) NEGATIVE (NEGATIVE); KETONES,URINE NEGATIVE (NEGATIVE); LEUKOCYTE ESTERASE ,URINE NEGATIVE (NEGATIVE); NITRITE,URINE NEGATIVE (NEGATIVE); PH,URINE 7 (4.5-8.0); PROTEIN,URINE NEGATIVE (NEGATIVE); UROBILINOGEN,URINE NORMAL MG/DL (0.0-1.0)
--- NOTE | 2018-04-06 17:43 | Consultation ---
Consult Note Consult Note # [id number] Iván Bernstein MD Apr 06, 2018 17:43
--- NOTE | 2018-04-06 18:25 | Cardiology Report ---
APPROVED REPORT EKG Measurement Heart [id number] Sinus rhythm with premature atrial complexes Otherwise normal ECG
--- NOTE | 2018-04-06 18:26 | Cardiology Report ---
APPROVED REPORT EKG Measurement Heart [id number] [place] 142P [id number] Sinus tachycardia with premature supraventricular complexes Possible Anterolateral infarct, age undetermined Abnormal ECG
--- NOTE | 2018-04-06 19:13 | Cardiology Progress Note ---
Assessment/Plan Assessment/Plan The patient is seen and examined, full consult report is dictated. Objective Last 24 Hour Vital Signs Date Time Temp Pulse Resp B/P (MAP) Pulse Ox O2 Delivery O2 Flow Rate FiO2 04/06/18 16:00 98.2 95 20 112/55 (74) 95 04/06/18 15:38 129 04/06/18 13:58 95 110/57 04/06/18 11:47 98.1 95 20 110/57 (74) 98.1 04/06/18 11:35 112 04/06/18 11:31 135 04/06/18 09:00 Nasal Cannula 2.0 04/06/18 08:00 100 04/06/18 08:00 97.9 87 19 134/76 (95) 98 97.9 04/06/18 07:45 73 20 Nasal Cannula 2.0 28 04/06/18 07:45 95 Nasal Cannula 2.0 28 04/06/18 07:45 Nasal Cannula 2.0 28 04/06/18 06:06 96 101/69 04/06/18 04:00 98.0 89 19 101/69 (80) 97 98.0 04/06/18 04:00 96 04/06/18 01:30 98.6 04/06/18 00:00 97.9 74 18 79/55 (63) 94 97.9 04/06/18 00:00 85 04/05/18 22:00 Room Air 04/05/18 21:48 106 97/36 04/05/18 21:25 98.6 106 22 97/36 97 Nasal Cannula 3.0 32 98.6 04/05/18 20:45 106 22 97/36 97 Nasal Cannula 3.0 Intake and Output 04/05/18 04/06/18 19:00 07:00 Intake Total 480 ml Output Total 200 ml Balance -200 ml 480 ml Intake Oral 480 ml Output Urine Total 200 ml # Voids 1 Laboratory Tests Test 04/05/18 19:30 04/06/18 13:20 04/06/18 16:00 Lactic Acid Level 1.30 mmol/L (0.66-2.22) White Blood Count 8.3 K/UL (4.8-10.8) Red Blood Count 4.29 M/UL (4.20-5.40) Hemoglobin 13.8 G/DL (12.0-16.0) Hematocrit 39.1 % (37.0-47.0) Mean Corpuscular Volume 91 FL (80-99) Mean Corpuscular Hemoglobin 32.2 PG (27.0-31.0) H Mean Corpuscular Hemoglobin Concent 35.4 G/DL (32.0-36.0) Red Cell Distribution Width 12.4 % (11.6-14.8) Platelet Count 148 K/UL (150-450) L Mean Platelet Volume 6.7 FL (6.5-10.1) Neutrophils (%) (Auto) 66.4 % (45.0-75.0) Lymphocytes (%) (Auto) 23.7 % (20.0-45.0) Monocytes (%) (Auto) 8.6 % (1.0-10.0) Eosinophils (%) (Auto) 0.5 % (0.0-3.0) Basophils (%) (Auto) 0.8 % (0.0-2.0) Sodium Level 142 MMOL/L (136-145) Potassium Level 3.9 MMOL/L (3.5-5.1) Chloride Level 101 MMOL/L (98-107) Carbon Dioxide Level 40 MMOL/L (21-32) H Anion Gap 1 mmol/L (5-15) L Blood Urea Nitrogen 15 mg/dL (7-18) Creatinine 0.6 MG/DL (0.55-1.30) Estimat Glomerular Filtration Rate mL/min (>60) Glucose Level 105 MG/DL (74-106) Calcium Level 8.4 MG/DL (8.5-10.1) L Total Bilirubin 0.6 MG/DL (0.2-1.0) Aspartate Amino Transf (AST/SGOT) 10 U/L (15-37) L Alanine Aminotransferase (ALT/SGPT) 28 U/L (12-78) Alkaline Phosphatase 46 U/L (46-116) Total Protein 4.6 G/DL (6.4-8.2) L Albumin 2.2 G/DL (3.4-5.0) L Globulin 2.4 g/dL Albumin/Globulin Ratio 0.9 (1.0-2.7) L Urine Color Pale yellow Urine Appearance Clear Urine pH 7 (4.5-8.0) Urine Specific [place] 1.010 (1.005-1.035) Urine Protein Negative (NEGATIVE) Urine Glucose (UA) Negative (NEGATIVE) Urine Ketones Negative (NEGATIVE) Urine Blood Negative (NEGATIVE) Urine Nitrite Negative (NEGATIVE) Urine Bilirubin Negative (NEGATIVE) Urine Urobilinogen Normal MG/DL (0.0-1.0) Urine Leukocyte Esterase Negative (NEGATIVE) Urine RBC 0-2 /HPF (0 - 2) Urine WBC 0 /HPF (0 - 2) Urine Squamous Epithelial Cells Occasional /LPF Urine Bacteria None /HPF (NONE) Microbiology Date/Time Source Procedure Growth Status 04/05/18 18:20 Urine,Clean Catch Urine Culture - Preliminary NO GROWTH Resulted 04/05/18 18:40 Rectum VRE Culture Pending Resulted 04/05/18 18:40 Rectum - Preliminary Resulted Jose Daniel Grajeda MD Apr 06, 2018 19:13
[2018-04-06] MEDS ORDERED: Digoxin 0.5mg/2ml Inj IVP SCH (19:38)
[2018-04-06 20:00] VITALS: BP 97/64
[2018-04-06] MEDS: Depakote 500mg tab ORAL SCH (20:51)
[2018-04-06] MEDS ORDERED: Promethazine/Codeine 5ml UD ORAL PRN (21:15)
[2018-04-06] MEDS: dilTIAZem HCl 90mg tab ORAL SCH (22:04)
[2018-04-06] MEDS ORDERED: NS 250 ML IVPB ONE (22:30)
--- NOTE | 2018-04-06 22:30 | History and Physical Report ---
DATE OF ADMISSION: 04/05/2018 DATE AND TIME SEEN: 04/06/2018 at 1 p.m. CONSULTANTS: 1. Fartun Gan M.D. 2. Iván Bernstein M.D. 3. Juwan Valladares M.D. 4. Filipe Yen M.D. 5. Jose Daniel Grajeda M.D. CHIEF COMPLAINT: Hypoxia, sepsis, short of breath, and tachycardia. BRIEF HISTORY: This is a 72-year-old female from [facility], presented with increased shortness of breath, was hypoxic and had elevated white count of 14 in the alf, sent to [place] with diagnosis as above, admitted to telemetry for further care. Currently O2 NC, slight short of breath. Slightly weak. No complaint otherwise. REVIEW OF SYSTEMS: No chest pain. Slight short of breath. No nausea, vomiting, or diarrhea. PAST MEDICAL HISTORY: CHF, COPD, MELVIN, hypertension, and obesity. PAST SURGICAL HISTORY: None. ALLERGIES: Haldol. SOCIAL HISTORY: No smoking. No alcohol. No intravenous drug abuse. FAMILY HISTORY: Noncontributory. PHYSICAL EXAMINATION: GENERAL: Slight short of breath. O2 NC in place. Oriented x2, in no acute distress. VITAL SIGNS: Temperature is 98 degrees, pulse 95, respirations 20, and blood pressure 110/57. CARDIOVASCULAR: No murmur. LUNGS: Poor exchange. ABDOMEN: Bowel sounds distant. EXTREMITIES: No cyanosis, clubbing, or edema. NEUROLOGIC: The patient moves all extremities, slightly weak. LABORATORY AND DIAGNOSTIC DATA: White count yesterday 15, today is pending. Otherwise, CBC is normal. BMP is pending. INR 0.9. PTT 22. Urinalysis shows 2+ leukocyte esterase. MEDICATIONS: Include , diltiazem, digoxin, Risperdal, levothyroxine, vancomycin, cefepime, morphine, temazepam, Zofran. ASSESSMENT: Shortness of breath, hypoxia, urinary tract infection, sepsis, congestive heart failure, chronic obstructive pulmonary disease, obstructive sleep apnea, hypertension, hypothyroid, tachycardia, and obesity. PLAN: 1. O2 and pulmonary treatment. 2. Antibiotics per Infectious Disease. 3. Blood pressure control. 4. Dietary followup. 5. OT/PT. 6. CBC and BMP in morning. 7. We will continue to follow the patient medically. Bill Lane D.O. DR: CHELI JOB#: [id number] CC:
--- NOTE | 2018-04-06 23:15 | Consultation ---
DATE OF CONSULTATION: 04/06/2018 INFECTIOUS DISEASE CONSULTATION CONSULTING PHYSICIAN: Iván Bernstein M.D. REFERRING PHYSICIAN: Bill Lane D.O. REASON FOR CONSULTATION: Evaluation of the patient for pneumonia, COPD exacerbation, and antibiotic management. HISTORY OF PRESENT ILLNESS: The patient is a 72-year-old female with multiple medical problems, who came to the hospital due to confusion and shortness of breath. The patient at the time of admission was found to have leukocytosis. Infectious Disease consultation has been requested for further evaluation of the patient's antibiotic management. PAST MEDICAL HISTORY: 1. Bilateral lower extremity edema. 2. History of CHF. 3. GERD. 4. Peripheral neuropathy. 5. Hypertension. 6. COPD. 7. CAD/MO. 8. Schizophrenia. ALLERGIES: Haloperidol. MEDICATIONS: Cefepime and vancomycin. FAMILY HISTORY: Not contributing. REVIEW OF SYSTEMS: Ten-point review was done, except what was mentioned has been negative. The patient abdominal pain and dysuria. PHYSICAL EXAMINATION: VITAL SIGNS: Temperature 98.2 degrees, pulse 86, respiratory rate 18, and blood pressure 112/55. HEENT: No pale conjunctivae. No icterus. NECK: No lymphadenopathy. CHEST: Mild bilateral wheezes. HEART: S1 and S2. ABDOMEN: Soft. EXTREMITIES: No cyanosis. NEUROLOGIC: Awake LABORATORY AND DIAGNOSTIC DATA: White blood cells on admission , hemoglobin 13.8, and platelets 148,000. UA unremarkable. BUN 15, creatinine 0.6, and ALT and AST are unremarkable. Urine culture pending. Chest x-ray shows left basilar opacity, likely atelectasis and pleural effusion, examination of both. ASSESSMENT: The patient is a 72-year-old female with: 1. Shortness of breath. 2. Chronic obstructive pulmonary disease exacerbation/pneumonia. 3. Leukocytosis, improved. 4. Afebrile. PLAN: 1. We will start the patient on Levaquin, day #1/5, we will hold vancomycin and cefepime. 2. CBC and BMP. 3. Monitor cultures. 4. Monitor chest x-ray. 5. Based on the patient's clinical course and labs, we will do further recommendation. Thank you, Dr. Bill Lane, for allowing me to participate in the care of this patient. I will follow the patient with you during this hospitalization. Iván Bernstein M.D. DR: TAMANNA JOB#: [id number] CC:
--- NOTE | 2018-04-06 23:15 | Consultation ---
DATE OF CONSULTATION: 04/06/2018 CARDIOLOGY CONSULTATION CONSULTING PHYSICIAN: Jose Daniel Grajeda M.D. REFERRING PHYSICIAN: Bill Lane D.O. REASON FOR CONSULTATION: Management of supraventricular tachycardia. HISTORY OF PRESENT ILLNESS: The patient is a very pleasant 72-year-old lady, resident of a nursing facility under the care of Dr. Lane, who was sent to this hospital for evaluation of shortness of breath with associated productive cough, leukocytosis, and hypothyroidism. The patient apparently is bedbound due to chronic low back pain. At the time of arrival to the hospital, she had complaints of shortness of breath as well as productive cough. Denied any fever or chills. She denied any chest pain or diaphoresis or nausea or vomiting. She was a longstanding smoker in the past and is suffering from morbid obesity. She denied any obesity hyperventilation syndrome and claimed that she does not use any CPAP mask at night time. PAST MEDICAL HISTORY: 1. History of chronic obstructive pulmonary disease. 2. History of hypertension. 3. History of heart failure per records. 4. History of schizophrenia. 5. History of peripheral neuropathy. 6. History of morbid obesity. PAST SURGICAL HISTORY: None. ALLERGIES: Haloperidol. SOCIAL HISTORY: Smoked for many years, one pack per day. Denies any alcohol or illicit drug use. REVIEW OF SYSTEMS: HEENT: Denies any headache, diplopia, or blurred vision. CONSTITUTIONAL: Denies any fever, chills, night sweats, or weight loss. CARDIOVASCULAR: Denies any chest pain. She had shortness of breath. No PND, orthopnea, leg swelling, or palpitations. PULMONARY: Productive cough and shortness of breath, but no hemoptysis. GASTROINTESTINAL: Denies any nausea, vomiting, diarrhea, constipation, abdominal pain, or GI bleed. GENITOURINARY: Denies any hematuria, dysuria, or incontinence. NEUROLOGIC: Denies any motor dysfunction, sensory deficit, or altered speech. MUSCULOSKELETAL: Denies any myalgia, arthralgia. She does not ambulate and she is bedbound due to chronic lower back pain. MEDICATIONS: List of medications in the nursing facility including acetaminophen 650 mg q.4 hours p.r.n. mild pain and temperature above 101, Keflex 500 mg four times a day for five days, diltiazem 60 mg q.8 hours, divalproex sodium 500 mg twice daily, Lovenox 30 mg subcutaneous daily, Lasix 20 mg p.o. daily, heparin sodium 5000 units subcutaneously q.12 hours, [place] 10/325 one tablet q.4 hours p.r.n. pain, DuoNeb 3 mL HHN q.4 hours, levothyroxine 25 mcg by mouth daily, Lidoderm 1 patch topical daily patch, lorazepam 1 mg q.6 hours as needed anxiety, nicotine one patch transdermal daily, nitroglycerin 0.4 mg sublingual q.5 minutes x3 dose p.r.n. chest pain, Zofran 4 mg q.6 hours p.r.n. nausea and vomiting, MiraLAX 17 g p.o. daily, prednisone 30 mg p.o. daily, promethazine and codeine 6.25/10 mL by mouth q.8 hours p.r.n. cough, Risperdal 2 mg p.o. daily, sennosides 17.2 mg p.o. at bedtime, temazepam 15 mg p.o. at bedtime p.r.n. insomnia, and Risperdal as mentioned. PHYSICAL EXAMINATION: VITAL SIGNS: Blood pressure at the time of arrival to the hospital was 141/70, pulse of 83, respirations 24, pulse oximetry of 92% on nasal cannula, and temperature 98.2 degrees Fahrenheit. GENERAL: The patient is a very unfortunate 72-year-old lady, in no apparent respiratory distress. HEENT: Atraumatic and normocephalic. Anicteric. Pupils are equal, round, and reactive to light and accommodation. Extraocular muscles intact. NECK: JVP cannot be assessed due to obesity and short neck. No carotid bruit. Carotid upstrokes 2+ bilaterally. CARDIOVASCULAR: Normal S1, S2. Irregularly irregular. A 2/6 mid systolic murmur at the left sternal border. LUNGS: Diminished breath sounds at both bases. ABDOMEN: Obese. Do not appreciate hepatosplenomegaly. Soft. Positive bowel sounds. EXTREMITIES: There is 2+ to 3+ bilateral lower extremity edema. LABORATORY AND DIAGNOSTIC DATA: Laboratory findings, sodium 136, potassium 4.5, chloride 97, bicarbonate 37, BUN 20, creatinine 0.7, glucose 141, and calcium is 8.7. Troponin I was 0.002. BNP was 174. INR was 1.9. WBC 15.4, hemoglobin of 15.5, hematocrit of 43.1, and platelet count is 168,000. Chest x-ray showed left basilar opacity likely atelectasis combination of both, associated cardiomegaly, and senescent changes (increased interstitial markings). A 12-lead electrocardiogram shows multifocal atrial tachycardia at a rate of 109 with evidence of RVH and nonspecific ST and T-wave abnormalities. ASSESSMENT AND PLAN: 1. Most likely multifocal atrial tachycardia, although one of the ECGs is more atrial tachycardia. This is most likely secondary to underlying chronic obstructive pulmonary disease. A 2D echocardiography for assessment of cardiac structure most likely dealing with biatrial enlargement of this patient. 2. History of chronic obstructive pulmonary disease with possible left pleural effusion. Pulmonary followup. 3. Suspect obesity hypoventilation syndrome. 4. A 2D echocardiogram, which showed light pulmonary artery pressure as well as the status of right atrial and right ventricular cavity size. Further therapeutic and diagnostic decision will be based on the results of 2D echocardiography. I would like to thank, Dr. Lane, for allowing me to participate in the care of this patient. Jose Daniel Grajeda M.D. DR: MOISE JOB#: [id number] CC:
[2018-04-07] VITALS: BP 121/70
[2018-04-07] MEDS: Morphine Sulfate 2mg/ml Inj IVP PRN ×3 (03:16→20:58)
[2018-04-07 04:00] VITALS: BP 98/50
[2018-04-07] MEDS: dilTIAZem HCl 90mg tab ORAL SCH ×3 (06:41→23:18)
--- NOTE | 2018-04-07 07:45 | Consultation ---
DATE OF CONSULTATION: 04/07/2018 ENDOCRINOLOGY CONSULTATION CONSULTING PHYSICIAN: Juwan Valladares M.D. REFERRING PHYSICIAN: Bill Lane D.O. REASON FOR CONSULTATION: Hypothyroidism. HISTORY OF PRESENT ILLNESS: The patient is a 72-year-old female patient of Dr. Bill Lane, lives in a alf facility, presented to the hospital with shortness of breath, cough, and hypothyroidism. The patient has been bed-bound due to chronic low back pain. Her shortness of breath has been improving. History of smoking in the past. PAST MEDICAL HISTORY: 1. COPD. 2. Hypertension. 3. Heart failure. 4. Schizophrenia. 5. Peripheral neuropathy. 6. Morbid obesity. 7. Hypothyroidism. PAST SURGICAL HISTORY: None. ALLERGIES: To PCN SOCIAL HISTORY: Smokes for many years, one pack a day. No alcohol or drug use. REVIEW OF SYSTEMS: As per HPI. LABORATORY VALUES: WBC 8, hemoglobin 13, hematocrit 39, and platelets of 148. Sodium 142, potassium 3.9, chloride 101, bicarb 40, BUN 15, creatinine 0.6, glucose of 105. TSH is 2.9. PHYSICAL EXAMINATION: GENERAL: She is awake. VITAL SIGNS: Blood pressure is 140/82, pulse 70, temperature 98.2, and respiratory rate of 18. HEENT: Pupils are equal and reactive to light. Sclerae anicteric. NECK: No JVD. HEART: Regular. LUNGS: Clear. ABDOMEN: Positive bowel sounds. EXTREMITIES: Positive for edema. DIAGNOSES: 1. CHF. 2. COPD. 3. Hypothyroidism. 4. Possible pneumonia. DISCUSSION: 1. Continue antibiotic. 2. Cardiology follows. 3. Continue levothyroxine 75 mcg daily. TSH is at target. 4. I will follow the patient. Juwan Valladares M.D. DR: JAMEE/KAY JOB#: [id number] CC: DORIS
[2018-04-07 08:00] VITALS: BP 100/52
[2018-04-07] MEDS: Depakote 500mg tab ORAL SCH ×2 (08:36→20:59)
[2018-04-07] MEDS: Heparin 5000 units/ml inj SUBQ SCH ×2 (08:39→21:00)
[2018-04-07 10:29] LABS: BASOPHILS % (AUTO) 0.7 % (0.0-2.0); HEMATOCRIT 41.7 % (37.0-47.0); HEMOGLOBIN 14.3 G/DL (12.0-16.0); MEAN CORPUSCULAR VOLUME 94 FL (80-99); MONOCYTES % (AUTO) 8.9 % (1.0-10.0); NEUTROPHILS % (AUTO) 71.3 % (45.0-75.0); PLATELET COUNT 143 K/UL (150-450); RED BLOOD COUNT 4.45 M/UL (4.20-5.40); RED CELL DISTRIBUTION WIDTH 12.9 % (11.6-14.8); WHITE BLOOD COUNT 9.7 K/UL (4.8-10.8)
[2018-04-07 11:02] LABS: ANION GAP -1 mmol/L (5-15); BLOOD UREA NITROGEN 11 mg/dL (7-18); CALCIUM 8.3 MG/DL (8.5-10.1); CHLORIDE 101 MMOL/L (98-107); CREATININE 0.6 MG/DL (0.55-1.30); POTASSIUM 3.8 MMOL/L (3.5-5.1); SODIUM 141 MMOL/L (136-145)
[2018-04-07 11:05] LABS: CARBON DIOXIDE 41 MMOL/L (21-32)
--- NOTE | 2018-04-07 11:34 | Pulmonology Progress Note ---
Assessment/Plan Problems: (1) Aspiration pneumonia (2) Sepsis (3) COPD exacerbation (4) Obese (5) HTN (hypertension) (6) MELVIN (obstructive sleep apnea) Assessment/Plan respiratory treatment continue abx check sputum and urine cultures on Cardizem echo ordered, still pending Subjective ROS Limited/Unobtainable: No Interval Events: c/o headache Constitutional: Reports: no symptoms HEENT: Repors: no symptoms Allergies: Coded Allergies: HALOPERIDOL (Verified Allergy, Unknown, 06/16/17) Objective Last 24 Hour Vital Signs Date Time Temp Pulse Resp B/P (MAP) Pulse Ox O2 Delivery O2 Flow Rate FiO2 04/07/18 09:00 Nasal Cannula 2.0 04/07/18 08:00 98.5 95 20 100/52 (68) 95 04/07/18 08:00 98 04/07/18 06:41 120 133/69 04/07/18 04:00 97.2 85 19 98/50 (66) 95 04/07/18 04:00 101 04/07/18 00:00 98.1 67 19 121/70 (87) 97 04/06/18 23:29 90 04/06/18 22:04 115 101/67 04/06/18 21:00 Nasal Cannula 2.0 04/06/18 20:51 74 04/06/18 20:00 98.0 74 19 97/64 (75) 95 04/06/18 19:38 95 20 Nasal Cannula 2.0 28 04/06/18 19:38 Nasal Cannula 2.0 28 04/06/18 19:38 95 Nasal Cannula 2.0 28 04/06/18 19:00 102 04/06/18 16:00 98.2 95 20 112/55 (74) 95 04/06/18 15:38 129 04/06/18 13:58 95 110/57 04/06/18 11:47 98.1 95 20 110/57 (74) 98.1 04/06/18 11:35 112 Intake and Output 04/06/18 04/07/18 19:00 07:00 Intake Total 830 ml 560 ml Output Total 1000 ml 950 ml Balance -170 ml -390 ml Intake Oral 720 ml 360 ml IV Total 110 ml 200 ml Output Urine Total 1000 ml 950 ml # Bowel Movements 1 General Appearance: WD/WN Respiratory/Chest: chest wall non-tender, lungs clear, chest wall tender Breasts: no masses Cardiovascular: normal peripheral pulses Abdomen: normal bowel sounds Genitourinary: normal external genitalia Skin: no rash Neurologic/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 Complete 04/05/18 18:20 Urine,Clean Catch Urine Culture - Preliminary Gram Negative Bacillus 1 Resulted 04/05/18 18:40 Rectum VRE Culture - Final NO VANCOMYCIN RESISTANT ENTEROCOCCUS ... Complete 04/05/18 18:40 Rectum - Final NO CARBAPENEM-RESISTANT ENTEROBACTERI... Complete Laboratory Tests 04/06/18 13:20: White Blood Count 8.3, Red Blood Count 4.29, Hemoglobin 13.8, Hematocrit 39.1, Mean Corpuscular Volume 91, Mean Corpuscular Hemoglobin 32.2H, Mean Corpuscular Hemoglobin Concent 35.4, Red Cell Distribution Width 12.4, Platelet Count 148L, Mean Platelet Volume 6.7, Neutrophils (%) (Auto) 66.4, Lymphocytes (%) (Auto) 23.7, Monocytes (%) (Auto) 8.6, Eosinophils (%) (Auto) 0.5, Basophils (%) (Auto ) 0.8, Sodium Level 142, Potassium Level 3.9, Chloride Level 101, Carbon Dioxide Level 40H, Anion Gap 1L, Blood Urea Nitrogen 15, Creatinine 0.6, Estimat Glomerular Filtration Rate , Glucose Level 105, Calcium Level 8.4L, Total Bilirubin 0.6, Aspartate Amino Transf (AST/SGOT) 10L, Alanine Aminotransferase (ALT/SGPT) 28, Alkaline Phosphatase 46, Total Protein 4.6L, Albumin 2.2L, Globulin 2.4, Albumin/Globulin Ratio 0.9L 04/06/18 16:00: Urine Color Pale yellow, Urine Appearance Clear, Urine pH 7, Urine Specific [place] 1.010, Urine Protein Negative, Urine Glucose (UA) Negative, Urine Ketones Negative, Urine Blood Negative, Urine Nitrite Negative, Urine Bilirubin Negative, Urine Urobilinogen Normal, Urine Leukocyte Esterase Negative, Urine RBC 0-2, Urine WBC 0, Urine Squamous Epithelial Cells Occasional, Urine Bacteria None 04/07/18 10:00: White Blood Count 9.7, Red Blood Count 4.45, Hemoglobin 14.3, Hematocrit 41.7, Mean Corpuscular Volume 94, Mean Corpuscular Hemoglobin 32.2H, Mean Corpuscular Hemoglobin Concent 34.4, Red Cell Distribution Width 12.9, Platelet Count 143L, Mean Platelet Volume 6.4L, Neutrophils (%) (Auto) 71.3, Lymphocytes (%) (Auto) 19.0L, Monocytes (%) (Auto) 8.9, Eosinophils (%) (Auto) 0.0, Basophils (%) (Auto ) 0.7, Sodium Level 141, Potassium Level 3.8, Chloride Level 101, Carbon Dioxide Level 41*H, Anion Gap -1L, Blood Urea Nitrogen 11, Creatinine 0.6, Estimat Glomerular Filtration Rate , Glucose Level 114H, Calcium Level 8.3L Current Medications Medications (Trade) Dose Ordered Sig/Marleni Route PRN Reason Start Time Stop Time Status Last Admin Dose Admin Acetaminophen (Tylenol) 650 mg Q4H PRN ORAL fever 04/05/18 19:45 05/05/18 19:44 04/06/18 00:59 Albuterol/ Ipratropium (Albuterol/ Ipratropium) 3 ml Q4H PRN HHN Shortness of Breath 04/05/18 19:45 04/10/18 19:44 Diltiazem HCl (Cardizem) 90 mg Q8HR ORAL 04/06/18 22:00 05/06/18 21:59 04/07/18 06:41 Divalproex Sodium (Depakote) 500 mg Q12HR ORAL 04/06/18 21:00 05/06/18 08:59 04/07/18 08:36 Heparin Sodium (Porcine) (Heparin 5000 units/ml) 5,000 units EVERY 12 HOURS SUBQ 04/05/18 21:00 05/05/18 20:59 04/07/18 08:39 Levofloxacin 150 ml @ 100 mls/hr Q24H IVPB 04/06/18 18:30 04/13/18 18:29 04/06/18 18:53 Levothyroxine Sodium (Synthroid) 75 mcg Q24H ORAL 04/06/18 06:30 05/06/18 06:29 04/07/18 06:40 Lorazepam (Ativan) 1 mg Q6H PRN ORAL For Anxiety 04/05/18 19:45 04/12/18 19:44 04/06/18 19:50 Morphine Sulfate (Morphine Sulfate) 2 mg Q4H PRN IVP Moderate Pain (Pain Scale 4-6) 04/05/18 19:45 04/12/18 19:44 04/07/18 03:16 Nitroglycerin (Ntg) 0.4 mg Q5M PRN SL Prn Chest Pain 04/05/18 19:45 05/05/18 19:44 Ondansetron HCl (Zofran) 4 mg Q6H PRN IVP Nausea & Vomiting 04/05/18 19:45 05/05/18 19:44 Polyethylene Glycol (Miralax) 17 gm DAILYPRN PRN ORAL Constipation 04/05/18 19:45 05/05/18 19:44 Promethazine HCl/ Codeine (Phenergan with Codeine) 5 ml Q6H PRN ORAL For Cough 04/06/18 21:15 05/06/18 21:14 Risperidone (RisperDAL) 2 mg DAILY ORAL 04/06/18 09:00 05/06/18 08:59 04/07/18 08:36 Temazepam (Restoril) 15 mg HSPRN PRN ORAL Insomnia 04/05/18 19:45 04/12/18 19:44 04/06/18 22:05 Fartun Gan MD Apr 07, 2018 11:34
[2018-04-07 12:00] VITALS: BP 99/56
--- NOTE | 2018-04-07 13:05 | General Progress Note ---
Assessment/Plan Problem List: (1) CHF (congestive heart failure) ICD Codes: I50.9 - Heart failure, unspecified SNOMED: 93108645 (2) COPD exacerbation ICD Codes: J44.1 - Chronic obstructive pulmonary disease with (acute) exacerbation SNOMED: 512554831 (3) UTI (urinary tract infection) ICD Codes: N39.0 - Urinary tract infection, site not specified SNOMED: 39748792 Qualifiers: Qualified Codes: N39.0 - Urinary tract infection, site not specified (4) MELVIN (obstructive sleep apnea) ICD Codes: G47.33 - Obstructive sleep apnea (adult) (pediatric) SNOMED: 00532967 (5) HTN (hypertension) ICD Codes: I10 - Essential (primary) hypertension SNOMED: 23790157 (6) Obese ICD Codes: E66.9 - Obesity, unspecified SNOMED: 457560360, 019007612 (7) Sepsis ICD Codes: A41.9 - Sepsis, unspecified organism SNOMED: 48558727 Status: unchanged Assessment/Plan o2 pulm tx abx ot pt diet cbc bmp am Subjective Constitutional: Reports: weakness Respiratory: Reports: shortness of breath Allergies: Coded Allergies: HALOPERIDOL (Verified Allergy, Unknown, 06/16/17) All Systems: reviewed and negative except above Subjective o2nc Objective Last 24 Hour Vital Signs Date Time Temp Pulse Resp B/P (MAP) Pulse Ox O2 Delivery O2 Flow Rate FiO2 04/07/18 09:00 Nasal Cannula 2.0 04/07/18 08:00 98.5 95 20 100/52 (68) 95 04/07/18 08:00 98 04/07/18 06:41 120 133/69 04/07/18 04:00 97.2 85 19 98/50 (66) 95 04/07/18 04:00 101 04/07/18 00:00 98.1 67 19 121/70 (87) 97 04/06/18 23:29 90 04/06/18 22:04 115 101/67 04/06/18 21:00 Nasal Cannula 2.0 04/06/18 20:51 74 04/06/18 20:00 98.0 74 19 97/64 (75) 95 04/06/18 19:38 95 20 Nasal Cannula 2.0 28 04/06/18 19:38 Nasal Cannula 2.0 28 04/06/18 19:38 95 Nasal Cannula 2.0 28 04/06/18 19:00 102 04/06/18 16:00 98.2 95 20 112/55 (74) 95 04/06/18 15:38 129 04/06/18 13:58 95 110/57 Intake and Output 04/06/18 04/07/18 19:00 07:00 Intake Total 830 ml 560 ml Output Total 1000 ml 950 ml Balance -170 ml -390 ml Intake Oral 720 ml 360 ml IV Total 110 ml 200 ml Output Urine Total 1000 ml 950 ml # Bowel Movements 1 Laboratory Tests 04/06/18 13:20: White Blood Count 8.3, Red Blood Count 4.29, Hemoglobin 13.8, Hematocrit 39.1, Mean Corpuscular Volume 91, Mean Corpuscular Hemoglobin 32.2H, Mean Corpuscular Hemoglobin Concent 35.4, Red Cell Distribution Width 12.4, Platelet Count 148L, Mean Platelet Volume 6.7, Neutrophils (%) (Auto) 66.4, Lymphocytes (%) (Auto) 23.7, Monocytes (%) (Auto) 8.6, Eosinophils (%) (Auto) 0.5, Basophils (%) (Auto ) 0.8, Sodium Level 142, Potassium Level 3.9, Chloride Level 101, Carbon Dioxide Level 40H, Anion Gap 1L, Blood Urea Nitrogen 15, Creatinine 0.6, Estimat Glomerular Filtration Rate , Glucose Level 105, Calcium Level 8.4L, Total Bilirubin 0.6, Aspartate Amino Transf (AST/SGOT) 10L, Alanine Aminotransferase (ALT/SGPT) 28, Alkaline Phosphatase 46, Total Protein 4.6L, Albumin 2.2L, Globulin 2.4, Albumin/Globulin Ratio 0.9L 04/06/18 16:00: Urine Color Pale yellow, Urine Appearance Clear, Urine pH 7, Urine Specific [place] 1.010, Urine Protein Negative, Urine Glucose (UA) Negative, Urine Ketones Negative, Urine Blood Negative, Urine Nitrite Negative, Urine Bilirubin Negative, Urine Urobilinogen Normal, Urine Leukocyte Esterase Negative, Urine RBC 0-2, Urine WBC 0, Urine Squamous Epithelial Cells Occasional, Urine Bacteria None 04/07/18 10:00: White Blood Count 9.7, Red Blood Count 4.45, Hemoglobin 14.3, Hematocrit 41.7, Mean Corpuscular Volume 94, Mean Corpuscular Hemoglobin 32.2H, Mean Corpuscular Hemoglobin Concent 34.4, Red Cell Distribution Width 12.9, Platelet Count 143L, Mean Platelet Volume 6.4L, Neutrophils (%) (Auto) 71.3, Lymphocytes (%) (Auto) 19.0L, Monocytes (%) (Auto) 8.9, Eosinophils (%) (Auto) 0.0, Basophils (%) (Auto ) 0.7, Sodium Level 141, Potassium Level 3.8, Chloride Level 101, Carbon Dioxide Level 41*H, Anion Gap -1L, Blood Urea Nitrogen 11, Creatinine 0.6, Estimat Glomerular Filtration Rate , Glucose Level 114H, Calcium Level 8.3L Height (Feet): 5 Height (Inches): 4.00 Weight (Pounds): 255 General Appearance: lethargic EENT: normal ENT inspection Neck: normal alignment Cardiovascular: normal peripheral pulses, normal rate, regular rhythm Respiratory/Chest: chest wall non-tender, lungs clear, normal breath sounds Abdomen: normal bowel sounds, non tender, soft Extremities: normal inspection Edema: no edema noted Arm (L), no edema noted Arm (R), no edema noted Leg (L), no edema noted Leg (R), no edema noted Pedal (L), no edema noted Pedal (R), no edema noted Generalized Neurologic: responsive, motor weakness Skin: normal pigmentation, warm/dry Bill Lane DO Apr 07, 2018 13:05
[2018-04-07 16:00] VITALS: BP 101/56
--- NOTE | 2018-04-07 18:16 | Infectious Diseases Prog Note ---
Assessment/Plan Assessment/Plan . ASSESSMENT: The patient is a 72-year-old female with: COPD exacerbation/pneumonia. 04/05 CXR: left basilar opacity, likely atelectasis and pleural effusion, examination of both SP SOB Leukocytosis, Sp Afebrile UCx : GNR : Colonizer no need to Rx Bilateral lower extremity edema. History of CHF. GERD. Peripheral neuropathy. Hypertension. COPD. CAD/[place]. Schizophrenia PLAN: Cont patient on Levaquin, day # 2 , SP Vancomycin and cefepime x 1 d CBC and BMP Monitor culture Monitor chest x-ray Subjective Allergies: Coded Allergies: HALOPERIDOL (Verified Allergy, Unknown, 06/16/17) Subjective Comfortable Objective Vital Signs Last 24 Hour Vital Signs Date Time Temp Pulse Resp B/P (MAP) Pulse Ox O2 Delivery O2 Flow Rate FiO2 04/07/18 16:00 91 04/07/18 14:29 92 102/50 04/07/18 12:00 98.6 94 20 99/56 (70) 96 04/07/18 12:00 94 04/07/18 09:41 81 20 Nasal Cannula 2.0 28 04/07/18 09:41 94 Nasal Cannula 2.0 28 04/07/18 09:41 Nasal Cannula 2.0 28 04/07/18 09:00 Nasal Cannula 2.0 04/07/18 08:00 98.5 95 20 100/52 (68) 95 04/07/18 08:00 98 04/07/18 06:41 120 133/69 04/07/18 04:00 97.2 85 19 98/50 (66) 95 04/07/18 04:00 101 04/07/18 00:00 98.1 67 19 121/70 (87) 97 04/06/18 23:29 90 04/06/18 22:04 115 101/67 04/06/18 21:00 Nasal Cannula 2.0 04/06/18 20:51 74 04/06/18 20:00 98.0 74 19 97/64 (75) 95 04/06/18 19:38 95 20 Nasal Cannula 2.0 28 04/06/18 19:38 Nasal Cannula 2.0 28 04/06/18 19:38 95 Nasal Cannula 2.0 28 04/06/18 19:00 102 Height (Feet): 5 Height (Inches): 4.00 Weight (Pounds): 255 HEENT: anicteric Respiratory/Chest: normal breath sounds Cardiovascular: regularly irregular Abdomen: no organomegaly Microbiology Date/Time Source Procedure Growth Status 04/05/18 17:25 Blood Blood Culture - Preliminary NO GROWTH AFTER 24 HOURS Resulted 04/05/18 17:15 Blood Blood Culture - Preliminary NO GROWTH AFTER 24 HOURS Resulted 04/05/18 18:40 Nasal Nares MRSA Culture - Final NO METHICILLIN RESISTANT STAPH AUREUS... Complete 04/05/18 18:20 Urine,Clean Catch Urine Culture - Preliminary Gram Negative Bacillus 1 Resulted 04/05/18 18:40 Rectum VRE Culture - Final NO VANCOMYCIN RESISTANT ENTEROCOCCUS ... Complete 04/05/18 18:40 Rectum - Final NO CARBAPENEM-RESISTANT ENTEROBACTERI... Complete Laboratory Tests Test 04/07/18 10:00 White Blood Count 9.7 K/UL (4.8-10.8) Red Blood Count 4.45 M/UL (4.20-5.40) Hemoglobin 14.3 G/DL (12.0-16.0) Hematocrit 41.7 % (37.0-47.0) Mean Corpuscular Volume 94 FL (80-99) Mean Corpuscular Hemoglobin 32.2 PG (27.0-31.0) H Mean Corpuscular Hemoglobin Concent 34.4 G/DL (32.0-36.0) Red Cell Distribution Width 12.9 % (11.6-14.8) Platelet Count 143 K/UL (150-450) L Mean Platelet Volume 6.4 FL (6.5-10.1) L Neutrophils (%) (Auto) 71.3 % (45.0-75.0) Lymphocytes (%) (Auto) 19.0 % (20.0-45.0) L Monocytes (%) (Auto) 8.9 % (1.0-10.0) Eosinophils (%) (Auto) 0.0 % (0.0-3.0) Basophils (%) (Auto) 0.7 % (0.0-2.0) Sodium Level 141 MMOL/L (136-145) Potassium Level 3.8 MMOL/L (3.5-5.1) Chloride Level 101 MMOL/L (98-107) Carbon Dioxide Level 41 MMOL/L (21-32) *H Anion Gap -1 mmol/L (5-15) L Blood Urea Nitrogen 11 mg/dL (7-18) Creatinine 0.6 MG/DL (0.55-1.30) Estimat Glomerular Filtration Rate mL/min (>60) Glucose Level 114 MG/DL (74-106) H Calcium Level 8.3 MG/DL (8.5-10.1) L Current Medications Medications (Trade) Dose Ordered Sig/Marleni Route PRN Reason Start Time Stop Time Status Last Admin Dose Admin Acetaminophen (Tylenol) 650 mg Q4H PRN ORAL fever 04/05/18 19:45 05/05/18 19:44 04/07/18 11:34 Albuterol/ Ipratropium (Albuterol/ Ipratropium) 3 ml Q4H PRN HHN Shortness of Breath 04/05/18 19:45 04/10/18 19:44 Diltiazem HCl (Cardizem) 90 mg Q8HR ORAL 04/06/18 22:00 05/06/18 21:59 04/07/18 14:29 Divalproex Sodium (Depakote) 500 mg Q12HR ORAL 04/06/18 21:00 05/06/18 08:59 04/07/18 08:36 Heparin Sodium (Porcine) (Heparin 5000 units/ml) 5,000 units EVERY 12 HOURS SUBQ 04/05/18 21:00 05/05/18 20:59 04/07/18 08:39 Levofloxacin 150 ml @ 100 mls/hr Q24H IVPB 04/06/18 18:30 04/13/18 18:29 04/06/18 18:53 Levothyroxine Sodium (Synthroid) 75 mcg Q24H ORAL 04/06/18 06:30 05/06/18 06:29 04/07/18 06:40 Lorazepam (Ativan) 1 mg Q6H PRN ORAL For Anxiety 04/05/18 19:45 04/12/18 19:44 04/06/18 19:50 Morphine Sulfate (Morphine Sulfate) 2 mg Q4H PRN IVP Moderate Pain (Pain Scale 4-6) 04/05/18 19:45 04/12/18 19:44 04/07/18 15:40 Nitroglycerin (Ntg) 0.4 mg Q5M PRN SL Prn Chest Pain 04/05/18 19:45 05/05/18 19:44 Ondansetron HCl (Zofran) 4 mg Q6H PRN IVP Nausea & Vomiting 04/05/18 19:45 05/05/18 19:44 Polyethylene Glycol (Miralax) 17 gm DAILYPRN PRN ORAL Constipation 04/05/18 19:45 05/05/18 19:44 Promethazine HCl/ Codeine (Phenergan with Codeine) 5 ml Q6H PRN ORAL For Cough 04/06/18 21:15 05/06/18 21:14 Risperidone (RisperDAL) 2 mg DAILY ORAL 04/06/18 09:00 05/06/18 08:59 04/07/18 08:36 Temazepam (Restoril) 15 mg HSPRN PRN ORAL Insomnia 04/05/18 19:45 04/12/18 19:44 04/06/18 22:05 Iván Bernstein MD Apr 07, 2018 18:16
[2018-04-07 20:00] VITALS: BP 99/53
--- NOTE | 2018-04-07 20:15 | Consultation ---
DATE OF CONSULTATION: 04/06/2018 PSYCHOTHERAPY CONSULTATION PROGRESS NOTE CONSULTING PHYSICIAN: Keyla Conde M.D. TREATING ATTENDING PHYSICIAN: Bill Lane D.O. HISTORY OF PRESENT ILLNESS: The patient is a 72-year-old female patient from [facility]. The patient was admitted to the hospital, has had elevated white cell count. The patient has a long-term history of mental illness. She has had some some confusion and disorganization in the thought process and for these reasons, she was referred for psychotherapeutic services. This clinician assessed the patient. The patient is irritable and agitated. The patient has been tired and confused. She has poor insight into her mental illness and her current medical condition. She states that she is having some difficulty sleeping at this time. The patient is irritable. The patient does have a history of schizoaffective disorder and has been taking psychotropic medications in the past. The patient denies suicidal or homicidal thoughts of ideations. Denies any auditory or visual hallucinations. Still slightly confused, disorganized and . PAST MEDICAL HISTORY: Includes history of heart failure, hypertension and COPD. ALLERGIES: The patient has no known drug allergies. SUBSTANCE ABUSE HISTORY: There is no indication of alcohol use, illicit substance use, or smoking cigarettes. PSYCHIATRIC HISTORY: The patient has a history of schizoaffective disorder and has been treated with psychotropic medications in the past. SOCIAL HISTORY: This is a 72-year-old female patient from . Financially sustained through [facility]. MENTAL STATUS EVALUATION: The patient is alert and oriented to person and place. Mood is irritable. Affect blunted. Thought process disorganized. She has poor attention and concentration. Poor insight, judgment, and impulse control. DIAGNOSES: Schizoaffective disorder, bipolar type. PLAN: This clinician assessed this patient. Redirecting the patient's disorganized thought process. Provided the patient with reality orientation. Provided supportive psychotherapy to help with the patient's anxiety. Encouraging the patient to participate in treatment milieu. Continue with behavioral management. This clinician has reviewed the patient's chart and discussed treatment with treatment team. Keyla Conde PsyD. DR: LAURY JOB#: [id number] CC:
--- NOTE | 2018-04-07 21:45 | Consultation ---
DATE OF CONSULTATION: 04/07/2018 INITIAL PSYCHIATRIC CONSULTATION CONSULTING PHYSICIAN: Filipe Yen M.D. REFERRING PHYSICIAN: Bill Lane D.O. HISTORY OF PRESENT ILLNESS: This is a 72-year-old female patient. She was admitted to [facility] secondary to hypoxia, sepsis, shortness of breath and tachycardia, but this patient was admitted initially with the psychiatric consultation requested for this patient to be seen because this patient does have a psychiatric history. Per chart, previous history of paranoid schizophrenia and altered mental status and to have daily psychiatric consultation for this patient. The patient does have some slight confusion and disorganized thought process on interview, but she appears to be pleasant, calm, cooperative, but slightly disorganized. Apparently, her cognition has declined below baseline secondary to stress from her medical illness. PAST MEDICAL HISTORY: As far as her medical history, she has history of congestive heart failure, COPD, hypertension and obesity. ALLERGIES: Haldol. MEDICATIONS: Psychotropic medications on admission, she is on a psychotropic medication regimen consisting of Depakote 500 mg twice a day, Risperdal 2 mg daily, and she is also on Ativan 1 mg every 6 hours p.r.n. anxiety and agitation. SUBSTANCE ABUSE HISTORY: No history of any drug and alcohol use. FAMILY PSYCHIATRIC HISTORY: Denies. PAIN ASSESSMENT: 08/21. DEVELOPMENTAL PROBLEMS: Denies. FAMILY PSYCHIATRIC HISTORY: No known family psychiatric history. SOCIAL HISTORY: This patient is currently living in [facility] and financially supported by [facility] and Medicare. PSYCHIATRIC HISTORY: History of paranoid schizophrenia. STRENGTHS: She is motivated to get better. She is healthy. WEAKNESSES: She is impulsive and she has minimal support system from liabilities. MENTAL STATUS EXAMINATION: This is a 72-year-old female patient. Appearance is slightly disheveled. Attitude, irritable and agitated. Affect, guarded and restricted. Intellect is poor because she does not know current events, does not know the last four presidents. Mood depressed and anxious. Motor activity, psychomotor retardation. Her attention span is poor. The patient could not spell world backwards or do serial 7's. Orientation x2. She is oriented to person and place, but not to time and situation. Speech is low volume and slightly disorganized. Thought process, disorganized. Thought content, slight paranoia. Her perception is poor. She has auditory hallucinations. Her abstract reasoning is poor because she has concrete thinking. She does not understand proverbs. Insight is poor because she does not recognize having a psychiatric disorder. Judgment is poor because she seemed to not understand the consequences of her actions. Her short-term memory is 2/3 of word recall. Poor short-term memory. Long-term memory is poor. She does not recall long-term things in her life such as high school that she went to. SECONDARY DIAGNOSIS: Schizoaffective, bipolar type. MEDICAL DIAGNOSES: COPD, congestive heart failure, pleural effusion, hypertension, obstructive sleep apnea, urinary tract infection, psychosocial stressors. Financial and functional parameters are moderate. PLAN: The patient appears to be relatively calm on a current psych med regimen she is on now, although her cognition has declined below baseline. So, I am going to continue her on Depakote 500 mg twice a day, Risperdal 2 mg daily, Ativan 1 mg every 6 hours p.r.n. anxiety and agitation, but also provided 20 minutes of cognitive behavioral therapy. We will help identify the patient's automatic negative thoughts and help her to covert the negative thoughts to more positive thinking. Chart is reviewed. Discussed with staff. The patient is seen and assessed at bedside. Filipe Yen M.D. DR: ADRIANA JOB#: [id number] CC:
--- NOTE | 2018-04-07 23:45 | Cardiology Progress Note ---
Assessment/Plan Assessment/Plan 1. Most likely multifocal atrial tachycardia, secondary to underlying chronic obstructive pulmonary disease. 2D echocardiography shows normal LV systolic function. 2. History of chronic obstructive pulmonary disease with possible left pleural effusion. Pulmonary followup. 3. Suspect obesity hypoventilation syndrome. Subjective Subjective Sinus rhythm at 78. Objective Last 24 Hour Vital Signs Date Time Temp Pulse Resp B/P (MAP) Pulse Ox O2 Delivery O2 Flow Rate FiO2 04/07/18 23:18 93 107/62 04/07/18 21:00 Nasal Cannula 2.0 04/07/18 20:00 105 04/07/18 20:00 98.7 83 20 99/53 (68) 96 04/07/18 19:57 95 Nasal Cannula 2.0 28 04/07/18 19:57 Nasal Cannula 2.0 28 04/07/18 19:56 84 20 Nasal Cannula 2.0 28 04/07/18 16:00 98.2 98 20 101/56 (71) 96 04/07/18 16:00 91 04/07/18 14:29 92 102/50 04/07/18 12:00 98.6 94 20 99/56 (70) 96 04/07/18 12:00 94 04/07/18 09:41 81 20 Nasal Cannula 2.0 28 04/07/18 09:41 94 Nasal Cannula 2.0 28 04/07/18 09:41 Nasal Cannula 2.0 28 04/07/18 09:00 Nasal Cannula 2.0 04/07/18 08:00 98.5 95 20 100/52 (68) 95 04/07/18 08:00 98 04/07/18 06:41 120 133/69 04/07/18 04:00 97.2 85 19 98/50 (66) 95 04/07/18 04:00 101 04/07/18 00:00 98.1 67 19 121/70 (87) 97 Intake and Output 04/06/18 04/07/18 19:00 07:00 Intake Total 830 ml 560 ml Output Total 1000 ml 950 ml Balance -170 ml -390 ml Intake Oral 720 ml 360 ml IV Total 110 ml 200 ml Output Urine Total 1000 ml 950 ml # Bowel Movements 1 2D Echo: LVEF 55%, Mold LVH, Mild LAE, RVSP 32 mmHg Laboratory Tests Test 04/07/18 10:00 White Blood Count 9.7 K/UL (4.8-10.8) Red Blood Count 4.45 M/UL (4.20-5.40) Hemoglobin 14.3 G/DL (12.0-16.0) Hematocrit 41.7 % (37.0-47.0) Mean Corpuscular Volume 94 FL (80-99) Mean Corpuscular Hemoglobin 32.2 PG (27.0-31.0) H Mean Corpuscular Hemoglobin Concent 34.4 G/DL (32.0-36.0) Red Cell Distribution Width 12.9 % (11.6-14.8) Platelet Count 143 K/UL (150-450) L Mean Platelet Volume 6.4 FL (6.5-10.1) L Neutrophils (%) (Auto) 71.3 % (45.0-75.0) Lymphocytes (%) (Auto) 19.0 % (20.0-45.0) L Monocytes (%) (Auto) 8.9 % (1.0-10.0) Eosinophils (%) (Auto) 0.0 % (0.0-3.0) Basophils (%) (Auto) 0.7 % (0.0-2.0) Sodium Level 141 MMOL/L (136-145) Potassium Level 3.8 MMOL/L (3.5-5.1) Chloride Level 101 MMOL/L (98-107) Carbon Dioxide Level 41 MMOL/L (21-32) *H Anion Gap -1 mmol/L (5-15) L Blood Urea Nitrogen 11 mg/dL (7-18) Creatinine 0.6 MG/DL (0.55-1.30) Estimat Glomerular Filtration Rate mL/min (>60) Glucose Level 114 MG/DL (74-106) H Calcium Level 8.3 MG/DL (8.5-10.1) L Microbiology Date/Time Source Procedure Growth Status 04/05/18 17:25 Blood Blood Culture - Preliminary NO GROWTH AFTER 24 HOURS Resulted 04/05/18 17:15 Blood Blood Culture - Preliminary NO GROWTH AFTER 24 HOURS Resulted 04/05/18 18:40 Nasal Nares MRSA Culture - Final NO METHICILLIN RESISTANT STAPH AUREUS... Complete 04/05/18 18:20 Urine,Clean Catch Urine Culture - Preliminary Gram Negative Bacillus 1 Resulted 04/05/18 18:40 Rectum VRE Culture - Final NO VANCOMYCIN RESISTANT ENTEROCOCCUS ... Complete 04/05/18 18:40 Rectum - Final NO CARBAPENEM-RESISTANT ENTEROBACTERI... Complete Objective HEENT: Atraumatic and normocephalic. Anicteric. Pupils are equal, round, and reactive to light and accommodation. Extraocular muscles intact. NECK: JVP cannot be assessed due to obesity and short neck. No carotid bruit. Carotid upstrokes 2+ bilaterally. CARDIOVASCULAR: Normal S1, S2. Irregularly irregular. A 2/6 mid systolic murmur at the left sternal border. LUNGS: Diminished breath sounds at both bases. ABDOMEN: Obese. Do not appreciate hepatosplenomegaly. Soft. Positive bowel sounds. EXTREMITIES: There is 2+ to 3+ bilateral lower extremity edema. Jose Daniel Grajeda MD Apr 07, 2018 23:45
[2018-04-08] VITALS: BP 106/53
[2018-04-08] MEDS: Morphine Sulfate 2mg/ml Inj IVP PRN ×3 (01:17→15:03)
[2018-04-08] MEDS: LORazepam 1mg tab ORAL PRN ×3 (02:59→21:10)
[2018-04-08 04:00] VITALS: BP 106/53
[2018-04-08] MEDS: dilTIAZem HCl 90mg tab ORAL SCH ×3 (05:32→21:10)
[2018-04-08 08:00] VITALS: BP 133/64
[2018-04-08] MEDS: Depakote 500mg tab ORAL SCH ×2 (08:29→21:10)
[2018-04-08 08:32] LABS: BASOPHILS % (AUTO) 0.8 % (0.0-2.0); HEMATOCRIT 38.8 % (37.0-47.0); HEMOGLOBIN 13.7 G/DL (12.0-16.0); LYMPHOCYTES % (AUTO) 18.3 % (20.0-45.0); MEAN CORPUSCULAR VOLUME 94 FL (80-99); MONOCYTES % (AUTO) 8.5 % (1.0-10.0); NEUTROPHILS % (AUTO) 72.4 % (45.0-75.0); PLATELET COUNT 135 K/UL (150-450); RED BLOOD COUNT 4.14 M/UL (4.20-5.40); RED CELL DISTRIBUTION WIDTH 12.4 % (11.6-14.8); WHITE BLOOD COUNT 8.7 K/UL (4.8-10.8)
[2018-04-08] MEDS: Heparin 5000 units/ml inj SUBQ SCH ×2 (08:33→21:09)
[2018-04-08 09:09] LABS: ALANINE AMINOTRANSFERASE 51 U/L (12-78); ALBUMIN 2.3 G/DL (3.4-5.0); ALBUMIN/GLOBULIN RATIO 0.9 (1.0-2.7); ALKALINE PHOSPHATASE 55 U/L (46-116); ASPARTATE AMINO TRANSFERASE 32 U/L (15-37); BILIRUBIN,TOTAL 1.3 MG/DL (0.2-1.0); BLOOD UREA NITROGEN 8 mg/dL (7-18); CALCIUM 8.2 MG/DL (8.5-10.1); CARBON DIOXIDE 39 MMOL/L (21-32); CHLORIDE 100 MMOL/L (98-107); CREATININE 0.5 MG/DL (0.55-1.30); PHOSPHORUS 2.4 MG/DL (2.5-4.9); SODIUM 141 MMOL/L (136-145)
[2018-04-08 09:12] LABS: BILIRUBIN,DIRECT 0.4 MG/DL (0.0-0.3)
--- NOTE | 2018-04-08 11:44 | General Progress Note ---
Assessment/Plan Problem List: (1) CHF (congestive heart failure) ICD Codes: I50.9 - Heart failure, unspecified SNOMED: 57414824 (2) COPD exacerbation ICD Codes: J44.1 - Chronic obstructive pulmonary disease with (acute) exacerbation SNOMED: 983463382 (3) UTI (urinary tract infection) ICD Codes: N39.0 - Urinary tract infection, site not specified SNOMED: 10371342 Qualifiers: Qualified Codes: N39.0 - Urinary tract infection, site not specified (4) MELVIN (obstructive sleep apnea) ICD Codes: G47.33 - Obstructive sleep apnea (adult) (pediatric) SNOMED: 73056153 (5) HTN (hypertension) ICD Codes: I10 - Essential (primary) hypertension SNOMED: 54519148 (6) Obese ICD Codes: E66.9 - Obesity, unspecified SNOMED: 503949178, 201320767 (7) Sepsis ICD Codes: A41.9 - Sepsis, unspecified organism SNOMED: 07925822 Status: unchanged Assessment/Plan o2 pulm tx abx ot pt diet cbc bmp am ms transfer if clear Subjective Constitutional: Reports: weakness Respiratory: Reports: shortness of breath Allergies: Coded Allergies: HALOPERIDOL (Verified Allergy, Unknown, 06/16/17) All Systems: reviewed and negative except above Subjective o2nc Objective Last 24 Hour Vital Signs Date Time Temp Pulse Resp B/P (MAP) Pulse Ox O2 Delivery O2 Flow Rate FiO2 04/08/18 09:00 Nasal Cannula 2.0 04/08/18 08:00 99.0 79 18 133/64 (87) 94 04/08/18 07:52 105 04/08/18 05:32 99 106/53 04/08/18 04:00 99 04/08/18 04:00 98.5 96 20 106/53 (70) 95 04/08/18 00:00 91 04/08/18 00:00 98.8 96 20 106/53 (70) 96 04/07/18 23:18 93 107/62 04/07/18 21:00 Nasal Cannula 2.0 04/07/18 20:00 105 04/07/18 20:00 98.7 83 20 99/53 (68) 96 04/07/18 19:57 95 Nasal Cannula 2.0 28 04/07/18 19:57 Nasal Cannula 2.0 28 04/07/18 19:56 84 20 Nasal Cannula 2.0 28 04/07/18 16:00 98.2 98 20 101/56 (71) 96 04/07/18 16:00 91 04/07/18 14:29 92 102/50 04/07/18 12:00 98.6 94 20 99/56 (70) 96 04/07/18 12:00 94 Intake and Output 04/07/18 04/08/18 18:59 06:59 Intake Total 240 ml 150 ml Output Total 500 ml Balance -260 ml 150 ml Intake Oral 240 ml IV Total 150 ml Output Urine Total 500 ml Laboratory Tests 04/08/18 07:25: White Blood Count 8.7, Red Blood Count 4.14L, Hemoglobin 13.7, Hematocrit 38.8, Mean Corpuscular Volume 94, Mean Corpuscular Hemoglobin 33.0H, Mean Corpuscular Hemoglobin Concent 35.2, Red Cell Distribution Width 12.4, Platelet Count 135L, Mean Platelet Volume 6.4L, Neutrophils (%) (Auto) 72.4, Lymphocytes (%) (Auto) 18.3L, Monocytes (%) (Auto) 8.5, Eosinophils (%) (Auto) 0.0, Basophils (%) (Auto ) 0.8, Sodium Level 141, Potassium Level 4.0, Chloride Level 100, Carbon Dioxide Level 39H, Blood Urea Nitrogen 8, Creatinine 0.5L, Estimat Glomerular Filtration Rate , Glucose Level 90, Calcium Level 8.2L, Phosphorus Level 2.4L, Magnesium Level 2.1, Total Bilirubin 1.3H, Direct Bilirubin 0.4H, Aspartate Amino Transf (AST/SGOT) 32, Alanine Aminotransferase (ALT/SGPT) 51, Alkaline Phosphatase 55, Total Protein 5.0L, Albumin 2.3L, Globulin 2.7, Albumin/ Globulin Ratio 0.9L Height (Feet): 5 Height (Inches): 4.00 Weight (Pounds): 255 General Appearance: lethargic EENT: normal ENT inspection Neck: normal alignment Cardiovascular: normal peripheral pulses, normal rate, regular rhythm Respiratory/Chest: chest wall non-tender, lungs clear, normal breath sounds Abdomen: normal bowel sounds, non tender, soft Extremities: normal inspection Edema: no edema noted Arm (L), no edema noted Arm (R), no edema noted Leg (L), no edema noted Leg (R), no edema noted Pedal (L), no edema noted Pedal (R), no edema noted Generalized Neurologic: motor weakness Skin: normal pigmentation, warm/dry Bill Lane DO Apr 08, 2018 11:44
[2018-04-08 12:00] VITALS: BP 106/74
--- NOTE | 2018-04-08 12:40 | Pulmonology Progress Note ---
Assessment/Plan Problems: (1) Aspiration pneumonia (2) Sepsis (3) COPD exacerbation (4) Obese (5) HTN (hypertension) (6) MELVIN (obstructive sleep apnea) Assessment/Plan still tachy, sinus, might be because of agitation respiratory treatment continue abx check sputum and urine cultures on Cardizem afebrile Subjective ROS Limited/Unobtainable: No Constitutional: Reports: no symptoms HEENT: Repors: no symptoms Respiratory: Reports: no symptoms Allergies: Coded Allergies: HALOPERIDOL (Verified Allergy, Unknown, 06/16/17) Objective Last 24 Hour Vital Signs Date Time Temp Pulse Resp B/P (MAP) Pulse Ox O2 Delivery O2 Flow Rate FiO2 04/08/18 12:00 98.4 106 19 106/74 (85) 95 04/08/18 09:36 Nasal Cannula 2.0 28 04/08/18 09:36 95 Nasal Cannula 2.0 28 04/08/18 09:36 77 20 Nasal Cannula 2.0 28 04/08/18 09:00 Nasal Cannula 2.0 04/08/18 08:00 99.0 79 18 133/64 (87) 94 04/08/18 07:52 105 04/08/18 05:32 99 106/53 04/08/18 04:00 99 04/08/18 04:00 98.5 96 20 106/53 (70) 95 04/08/18 00:00 91 04/08/18 00:00 98.8 96 20 106/53 (70) 96 04/07/18 23:18 93 107/62 04/07/18 21:00 Nasal Cannula 2.0 04/07/18 20:00 105 04/07/18 20:00 98.7 83 20 99/53 (68) 96 04/07/18 19:57 95 Nasal Cannula 2.0 28 04/07/18 19:57 Nasal Cannula 2.0 28 04/07/18 19:56 84 20 Nasal Cannula 2.0 28 04/07/18 16:00 98.2 98 20 101/56 (71) 96 04/07/18 16:00 91 04/07/18 14:29 92 102/50 Intake and Output 04/07/18 04/08/18 18:59 06:59 Intake Total 240 ml 150 ml Output Total 500 ml Balance -260 ml 150 ml Intake Oral 240 ml IV Total 150 ml Output Urine Total 500 ml General Appearance: WD/WN HEENT: normocephalic, atraumatic Respiratory/Chest: chest wall non-tender, lungs clear Cardiovascular: normal peripheral pulses, normal rate Abdomen: soft, non tender, no organomegaly, no scars Extremities: no cyanosis Microbiology Date/Time Source Procedure Growth Status 04/05/18 17:25 Blood Blood Culture - Preliminary NO GROWTH AFTER 48 HOURS Resulted 04/05/18 17:15 Blood Blood Culture - Preliminary NO GROWTH AFTER 48 HOURS Resulted 04/05/18 18:40 Nasal Nares MRSA Culture - Final NO METHICILLIN RESISTANT STAPH AUREUS... Complete 04/05/18 18:20 Urine,Clean Catch Urine Culture - Preliminary Pseudomonas Aeruginosa - Mdr Resulted 04/05/18 18:40 Rectum VRE Culture - Final NO VANCOMYCIN RESISTANT ENTEROCOCCUS ... Complete 04/05/18 18:40 Rectum - Final NO CARBAPENEM-RESISTANT ENTEROBACTERI... Complete Laboratory Tests 04/08/18 07:25: White Blood Count 8.7, Red Blood Count 4.14L, Hemoglobin 13.7, Hematocrit 38.8, Mean Corpuscular Volume 94, Mean Corpuscular Hemoglobin 33.0H, Mean Corpuscular Hemoglobin Concent 35.2, Red Cell Distribution Width 12.4, Platelet Count 135L, Mean Platelet Volume 6.4L, Neutrophils (%) (Auto) 72.4, Lymphocytes (%) (Auto) 18.3L, Monocytes (%) (Auto) 8.5, Eosinophils (%) (Auto) 0.0, Basophils (%) (Auto ) 0.8, Sodium Level 141, Potassium Level 4.0, Chloride Level 100, Carbon Dioxide Level 39H, Blood Urea Nitrogen 8, Creatinine 0.5L, Estimat Glomerular Filtration Rate , Glucose Level 90, Calcium Level 8.2L, Phosphorus Level 2.4L, Magnesium Level 2.1, Total Bilirubin 1.3H, Direct Bilirubin 0.4H, Aspartate Amino Transf (AST/SGOT) 32, Alanine Aminotransferase (ALT/SGPT) 51, Alkaline Phosphatase 55, Total Protein 5.0L, Albumin 2.3L, Globulin 2.7, Albumin/ Globulin Ratio 0.9L Current Medications Medications (Trade) Dose Ordered Sig/Marleni Route PRN Reason Start Time Stop Time Status Last Admin Dose Admin Acetaminophen (Tylenol) 650 mg Q4H PRN ORAL fever 04/05/18 19:45 05/05/18 19:44 04/07/18 11:34 Albuterol/ Ipratropium (Albuterol/ Ipratropium) 3 ml Q4H PRN HHN Shortness of Breath 04/05/18 19:45 04/10/18 19:44 Diltiazem HCl (Cardizem) 90 mg Q8HR ORAL 04/06/18 22:00 05/06/18 21:59 04/08/18 05:32 Divalproex Sodium (Depakote) 500 mg Q12HR ORAL 04/06/18 21:00 05/06/18 08:59 04/08/18 08:29 Heparin Sodium (Porcine) (Heparin 5000 units/ml) 5,000 units EVERY 12 HOURS SUBQ 04/05/18 21:00 05/05/18 20:59 04/08/18 08:33 Levofloxacin 150 ml @ 100 mls/hr Q24H IVPB 04/06/18 18:30 04/13/18 18:29 04/07/18 18:26 Levothyroxine Sodium (Synthroid) 75 mcg Q24H ORAL 04/06/18 06:30 05/06/18 06:29 04/08/18 05:32 Lorazepam (Ativan) 1 mg Q6H PRN ORAL For Anxiety 04/05/18 19:45 04/12/18 19:44 04/08/18 02:59 Morphine Sulfate (Morphine Sulfate) 2 mg Q4H PRN IVP Moderate Pain (Pain Scale 4-6) 04/05/18 19:45 04/12/18 19:44 04/08/18 05:32 Nitroglycerin (Ntg) 0.4 mg Q5M PRN SL Prn Chest Pain 04/05/18 19:45 05/05/18 19:44 Ondansetron HCl (Zofran) 4 mg Q6H PRN IVP Nausea & Vomiting 04/05/18 19:45 05/05/18 19:44 Polyethylene Glycol (Miralax) 17 gm DAILYPRN PRN ORAL Constipation 04/05/18 19:45 05/05/18 19:44 Promethazine HCl/ Codeine (Phenergan with Codeine) 5 ml Q6H PRN ORAL For Cough 04/06/18 21:15 05/06/18 21:14 Risperidone (RisperDAL) 2 mg DAILY ORAL 04/06/18 09:00 05/06/18 08:59 04/08/18 08:29 Temazepam (Restoril) 15 mg HSPRN PRN ORAL Insomnia 04/05/18 19:45 04/12/18 19:44 04/08/18 00:16 Fartun Gan MD Apr 08, 2018 12:40
[2018-04-08 16:00] VITALS: BP 124/70
--- NOTE | 2018-04-08 16:13 | Cardiology Report ---
APPROVED REPORT EKG Measurement Heart [id number] OR 178P-18 [id number] Sinus tachycardia Otherwise normal ECG
--- NOTE | 2018-04-08 16:15 | Cardiology Report ---
APPROVED REPORT EKG Measurement Heart [id number] Atrial fibrillation with rapid ventricular response Abnormal ECG
[2018-04-08 20:00] VITALS: BP 132/68
--- NOTE | 2018-04-08 20:25 | Infectious Diseases Prog Note ---
Assessment/Plan Assessment/Plan . ASSESSMENT: The patient is a 72-year-old female with: COPD exacerbation/pneumonia. 04/05 CXR: left basilar opacity, likely atelectasis and pleural effusion, examination of both SP SOB Leukocytosis, Sp Afebrile UCx : PSA Colonizer no need to Rx Bilateral lower extremity edema. History of CHF. GERD. Peripheral neuropathy. Hypertension. COPD. CAD/KS. Schizophrenia PLAN: Cont patient on Levaquin, day # 3 /5, SP Vancomycin and cefepime x 1 d CBC and BMP Monitor culture Monitor chest x-ray Subjective Constitutional: Denies: no symptoms, fever, chills, fatigue, anorexia, drenching sweats, other Allergies: Coded Allergies: HALOPERIDOL (Verified Allergy, Unknown, 06/16/17) Subjective Comfortable Objective Vital Signs Last 24 Hour Vital Signs Date Time Temp Pulse Resp B/P (MAP) Pulse Ox O2 Delivery O2 Flow Rate FiO2 04/08/18 20:00 115 04/08/18 19:45 Nasal Cannula 2.0 28 04/08/18 19:45 95 Nasal Cannula 2.0 28 04/08/18 19:45 69 20 Nasal Cannula 2.0 28 04/08/18 16:21 93 04/08/18 16:00 97.9 101 18 124/70 (88) 96 04/08/18 13:24 116 106/74 04/08/18 12:00 116 04/08/18 12:00 98.4 106 19 106/74 (85) 95 04/08/18 09:36 Nasal Cannula 2.0 28 04/08/18 09:36 95 Nasal Cannula 2.0 28 04/08/18 09:36 77 20 Nasal Cannula 2.0 28 04/08/18 09:00 Nasal Cannula 2.0 04/08/18 08:00 99.0 79 18 133/64 (87) 94 04/08/18 07:52 105 04/08/18 05:32 99 106/53 04/08/18 04:00 99 04/08/18 04:00 98.5 96 20 106/53 (70) 95 04/08/18 00:00 91 04/08/18 00:00 98.8 96 20 106/53 (70) 96 04/07/18 23:18 93 107/62 04/07/18 21:00 Nasal Cannula 2.0 Height (Feet): 5 Height (Inches): 4.00 Weight (Pounds): 255 HEENT: anicteric Respiratory/Chest: normal breath sounds Cardiovascular: regularly irregular Abdomen: no organomegaly Laboratory Tests Test 04/08/18 07:25 White Blood Count 8.7 K/UL (4.8-10.8) Red Blood Count 4.14 M/UL (4.20-5.40) L Hemoglobin 13.7 G/DL (12.0-16.0) Hematocrit 38.8 % (37.0-47.0) Mean Corpuscular Volume 94 FL (80-99) Mean Corpuscular Hemoglobin 33.0 PG (27.0-31.0) H Mean Corpuscular Hemoglobin Concent 35.2 G/DL (32.0-36.0) Red Cell Distribution Width 12.4 % (11.6-14.8) Platelet Count 135 K/UL (150-450) L Mean Platelet Volume 6.4 FL (6.5-10.1) L Neutrophils (%) (Auto) 72.4 % (45.0-75.0) Lymphocytes (%) (Auto) 18.3 % (20.0-45.0) L Monocytes (%) (Auto) 8.5 % (1.0-10.0) Eosinophils (%) (Auto) 0.0 % (0.0-3.0) Basophils (%) (Auto) 0.8 % (0.0-2.0) Sodium Level 141 MMOL/L (136-145) Potassium Level 4.0 MMOL/L (3.5-5.1) Chloride Level 100 MMOL/L (98-107) Carbon Dioxide Level 39 MMOL/L (21-32) H Blood Urea Nitrogen 8 mg/dL (7-18) Creatinine 0.5 MG/DL (0.55-1.30) L Estimat Glomerular Filtration Rate mL/min (>60) Glucose Level 90 MG/DL (74-106) Calcium Level 8.2 MG/DL (8.5-10.1) L Phosphorus Level 2.4 MG/DL (2.5-4.9) L Magnesium Level 2.1 MG/DL (1.8-2.4) Total Bilirubin 1.3 MG/DL (0.2-1.0) H Direct Bilirubin 0.4 MG/DL (0.0-0.3) H Aspartate Amino Transf (AST/SGOT) 32 U/L (15-37) Alanine Aminotransferase (ALT/SGPT) 51 U/L (12-78) Alkaline Phosphatase 55 U/L (46-116) Total Protein 5.0 G/DL (6.4-8.2) L Albumin 2.3 G/DL (3.4-5.0) L Globulin 2.7 g/dL Albumin/Globulin Ratio 0.9 (1.0-2.7) L Current Medications Medications (Trade) Dose Ordered Sig/Marleni Route PRN Reason Start Time Stop Time Status Last Admin Dose Admin Acetaminophen (Tylenol) 650 mg Q4H PRN ORAL fever 04/05/18 19:45 05/05/18 19:44 04/07/18 11:34 Albuterol/ Ipratropium (Albuterol/ Ipratropium) 3 ml Q4H PRN HHN Shortness of Breath 04/05/18 19:45 04/10/18 19:44 Diltiazem HCl (Cardizem) 90 mg Q8HR ORAL 04/06/18 22:00 05/06/18 21:59 04/08/18 13:24 Divalproex Sodium (Depakote) 500 mg Q12HR ORAL 04/06/18 21:00 05/06/18 08:59 04/08/18 08:29 Heparin Sodium (Porcine) (Heparin 5000 units/ml) 5,000 units EVERY 12 HOURS SUBQ 04/05/18 21:00 05/05/18 20:59 04/08/18 08:33 Levofloxacin 150 ml @ 100 mls/hr Q24H IVPB 04/06/18 18:30 04/13/18 18:29 04/08/18 18:11 Levothyroxine Sodium (Synthroid) 75 mcg Q24H ORAL 04/06/18 06:30 05/06/18 06:29 04/08/18 05:32 Lorazepam (Ativan) 1 mg Q6H PRN ORAL For Anxiety 04/05/18 19:45 04/12/18 19:44 04/08/18 13:24 Morphine Sulfate (Morphine Sulfate) 2 mg Q4H PRN IVP Moderate Pain (Pain Scale 4-6) 04/05/18 19:45 04/12/18 19:44 04/08/18 15:03 Nitroglycerin (Ntg) 0.4 mg Q5M PRN SL Prn Chest Pain 04/05/18 19:45 05/05/18 19:44 Ondansetron HCl (Zofran) 4 mg Q6H PRN IVP Nausea & Vomiting 04/05/18 19:45 05/05/18 19:44 Polyethylene Glycol (Miralax) 17 gm DAILYPRN PRN ORAL Constipation 04/05/18 19:45 05/05/18 19:44 Promethazine HCl/ Codeine (Phenergan with Codeine) 5 ml Q6H PRN ORAL For Cough 04/06/18 21:15 05/06/18 21:14 Risperidone (RisperDAL) 2 mg DAILY ORAL 04/06/18 09:00 05/06/18 08:59 04/08/18 08:29 Temazepam (Restoril) 15 mg HSPRN PRN ORAL Insomnia 04/05/18 19:45 04/12/18 19:44 04/08/18 00:16 Iván Bernstein MD Apr 08, 2018 20:25
--- NOTE | 2018-04-08 21:15 | Progress Note ---
DATE: 04/08/2018 HISTORY OF PRESENT ILLNESS: The patient is a female patient, 72 years old. She is at [facility]. She has hypoxia, sepsis, shortness of breath, and tachycardia. She does have decline in cognition below her baseline worsened by stressors, medical illnesses, and altered mental status. That is why, her attending physician has requested daily psychiatric consultation for this patient. MENTAL STATUS EXAMINATION: This is a female patient who is 72 years old. Appearance is disheveled. Attitude, irritable and agitated. Affect, guarded and restricted. Intellect poor. Mood depressed and anxious. Motor activity, psychomotor agitation. Attention span is poor. Orientation x2. Speech is pressured. Thought process, disorganized and illogical. Thought content, auditory hallucinations and paranoid delusions. Insight and judgment is poor. DIAGNOSIS: Schizoaffective, bipolar type. PLAN: Plan for this patient is to treat her with a psychotropic medication regimen consisting of Risperdal 2 mg p.o. daily, then Depakote 500 mg q.12 h. to help stabilize her mood, and also Ativan 1 mg every 6 hours p.r.n. anxiety and agitation. Provided with 20 minutes of cognitive behavioral therapy to help this patient identify automatic negative thoughts and help her convert those negative thoughts to more positive thoughts to reduce depression, anxiety, and suicidality. That was 20 minutes of cognitive behavioral therapy. Seen and assessed at bedside. Chart was reviewed. Discussed with staff. Seen and assessed in her room. Filipe Yen M.D. DR: PAT JOB#: [id number] CC:
[2018-04-09] VITALS: BP 125/71
--- NOTE | 2018-04-09 03:01 | Progress Note ---
DATE: 04/07/2018 NOTE: POOR AUDIO PSYCHOTHERAPY CONSULTATION PROGRESS NOTE TREATING ATTENDING PHYSICIAN: Bill Lane D.O. CHIEF COMPLAINT: The patient is a 72-year-old female patient history of mental illness. The patient is confused, disorganized anxiety, irritability and agitation. suicidal or homicidal ASSESSMENT: Today, discussed with the patient . Keyla Conde PsyD. DR: DARIEN JOB#: [id number] CC:
[2018-04-09 04:00] VITALS: BP 129/61
[2018-04-09] MEDS: dilTIAZem HCl 90mg tab ORAL SCH ×3 (05:31→21:08)
[2018-04-09 07:19] LABS: ANION GAP 0 mmol/L (5-15); BLOOD UREA NITROGEN 7 mg/dL (7-18); CALCIUM 8.5 MG/DL (8.5-10.1); CARBON DIOXIDE 40 MMOL/L (21-32); CHLORIDE 103 MMOL/L (98-107); CREATININE 0.5 MG/DL (0.55-1.30); POTASSIUM 3.6 MMOL/L (3.5-5.1); SODIUM 143 MMOL/L (136-145)
--- NOTE | 2018-04-09 07:26 | Pulmonology Progress Note ---
Assessment/Plan Assessment/Plan ASSESSMENT sepsis COPD with exacerbation PNA, poss aspiration PNA Tachycardia, probably multifocal A tach MELVIN vs obesity hypoventilation syndrome HTN Obesity schizophrenia bipolar type PLAN OF CARE Tele O2 HHN prn Empiric abx blood cx negative, urine cx colonizer ID follows a/tussive prn swallow eval fup with CXR Cardizem for BP management, monitor HR cardio follows ECHO with pEF DVT prophylaxis PT/OT psych meds optimized as per psych outpt sleep study recommended case discussed and evaluated by supervising physician Subjective Allergies: Coded Allergies: HALOPERIDOL (Verified Allergy, Unknown, 06/16/17) Subjective remains tachycardic no chest pain no resp distress intermittent cough with eating Objective Last 24 Hour Vital Signs Date Time Temp Pulse Resp B/P (MAP) Pulse Ox O2 Delivery O2 Flow Rate FiO2 04/09/18 05:31 95 129/61 04/09/18 04:00 98.4 63 18 129/61 (83) 98 04/09/18 04:00 95 04/09/18 00:00 97.0 94 18 125/71 (89) 97 04/09/18 00:00 99 04/08/18 21:10 115 132/68 04/08/18 21:00 Nasal Cannula 2.0 04/08/18 20:00 97.6 100 20 132/68 (89) 95 04/08/18 20:00 115 04/08/18 19:45 Nasal Cannula 2.0 28 04/08/18 19:45 95 Nasal Cannula 2.0 28 04/08/18 19:45 69 20 Nasal Cannula 2.0 28 04/08/18 16:21 93 04/08/18 16:00 97.9 101 18 124/70 (88) 96 04/08/18 13:24 116 106/74 04/08/18 12:00 116 04/08/18 12:00 98.4 106 19 106/74 (85) 95 04/08/18 09:36 Nasal Cannula 2.0 28 04/08/18 09:36 95 Nasal Cannula 2.0 28 04/08/18 09:36 77 20 Nasal Cannula 2.0 28 04/08/18 09:00 Nasal Cannula 2.0 04/08/18 08:00 99.0 79 18 133/64 (87) 94 04/08/18 07:52 105 Intake and Output 04/08/18 04/09/18 19:00 07:00 Intake Total 280 ml Output Total 1000 ml Balance 280 ml -1000 ml Free Water 100 ml Tube Feeding 180 ml Output Urine Total 1000 ml # Voids 3 General Appearance: no acute distress HEENT: normocephalic, atraumatic Respiratory/Chest: crackles/rales - few scatttered crackles Cardiovascular: no JVD, tachycardia - ST with frequent PAC Abdomen: normal bowel sounds, soft, non tender Extremities: no edema, pedal pulses normal Neurologic/Psychiatric: abnormal gait, alert, responsive Musculoskeletal: atrophy - BLE Laboratory Tests 04/09/18 06:00: White Blood Count [Pending], Red Blood Count [Pending], Hemoglobin [Pending], Hematocrit [Pending], Mean Corpuscular Volume [Pending], Mean Corpuscular Hemoglobin [Pending], Mean Corpuscular Hemoglobin Concent [Pending], Red Cell Distribution Width [Pending], Platelet Count [Pending], Mean Platelet Volume [ Pending], Neutrophils (%) (Auto) [Pending], Lymphocytes (%) (Auto) [Pending], Monocytes (%) (Auto) [Pending], Eosinophils (%) (Auto) [Pending], Basophils (%) (Auto) [Pending], Sodium Level 143, Potassium Level 3.6, Chloride Level 103, Carbon Dioxide Level 40H, Anion Gap 0L, Blood Urea Nitrogen 7, Creatinine 0.5L, Estimat Glomerular Filtration Rate , Glucose Level 98, Calcium Level 8.5 Current Medications Medications (Trade) Dose Ordered Sig/Marleni Route PRN Reason Start Time Stop Time Status Last Admin Dose Admin Acetaminophen (Tylenol) 650 mg Q4H PRN ORAL fever 04/05/18 19:45 05/05/18 19:44 04/07/18 11:34 Albuterol/ Ipratropium (Albuterol/ Ipratropium) 3 ml Q4H PRN HHN Shortness of Breath 04/05/18 19:45 04/10/18 19:44 Diltiazem HCl (Cardizem) 90 mg Q8HR ORAL 04/06/18 22:00 05/06/18 21:59 04/09/18 05:31 Divalproex Sodium (Depakote) 500 mg Q12HR ORAL 04/06/18 21:00 05/06/18 08:59 04/08/18 21:10 Heparin Sodium (Porcine) (Heparin 5000 units/ml) 5,000 units EVERY 12 HOURS SUBQ 04/05/18 21:00 05/05/18 20:59 04/08/18 21:09 Levofloxacin 150 ml @ 100 mls/hr Q24H IVPB 04/06/18 18:30 04/13/18 18:29 04/08/18 18:11 Levothyroxine Sodium (Synthroid) 75 mcg Q24H ORAL 04/06/18 06:30 05/06/18 06:29 04/09/18 05:31 Lorazepam (Ativan) 1 mg Q6H PRN ORAL For Anxiety 04/05/18 19:45 04/12/18 19:44 04/08/18 21:10 Morphine Sulfate (Morphine Sulfate) 2 mg Q4H PRN IVP Moderate Pain (Pain Scale 4-6) 04/05/18 19:45 04/12/18 19:44 04/08/18 15:03 Nitroglycerin (Ntg) 0.4 mg Q5M PRN SL Prn Chest Pain 04/05/18 19:45 05/05/18 19:44 Ondansetron HCl (Zofran) 4 mg Q6H PRN IVP Nausea & Vomiting 04/05/18 19:45 05/05/18 19:44 Polyethylene Glycol (Miralax) 17 gm DAILYPRN PRN ORAL Constipation 04/05/18 19:45 05/05/18 19:44 Promethazine HCl/ Codeine (Phenergan with Codeine) 5 ml Q6H PRN ORAL For Cough 04/06/18 21:15 05/06/18 21:14 Risperidone (RisperDAL) 2 mg DAILY ORAL 04/06/18 09:00 05/06/18 08:59 04/08/18 08:29 Temazepam (Restoril) 15 mg HSPRN PRN ORAL Insomnia 04/05/18 19:45 04/12/18 19:44 04/08/18 00:16 Sharon Gimenez NP Apr 09, 2018 07:26
[2018-04-09 07:34] LABS: BASOPHILS % (AUTO) 0.8 % (0.0-2.0); EOSINOPHILS % (AUTO) 0.1 % (0.0-3.0); HEMATOCRIT 38.9 % (37.0-47.0); HEMOGLOBIN 13.7 G/DL (12.0-16.0); LYMPHOCYTES % (AUTO) 22.3 % (20.0-45.0); MEAN CORPUSCULAR VOLUME 94 FL (80-99); NEUTROPHILS % (AUTO) 66.8 % (45.0-75.0); PLATELET COUNT 137 K/UL (150-450); RED BLOOD COUNT 4.16 M/UL (4.20-5.40); RED CELL DISTRIBUTION WIDTH 12.6 % (11.6-14.8); WHITE BLOOD COUNT 6.9 K/UL (4.8-10.8)
[2018-04-09 08:00] VITALS: BP 130/63
--- NOTE | 2018-04-09 08:03 | General Progress Note ---
Assessment/Plan Problem List: (1) CHF (congestive heart failure) ICD Codes: I50.9 - Heart failure, unspecified SNOMED: 64898056 (2) COPD exacerbation ICD Codes: J44.1 - Chronic obstructive pulmonary disease with (acute) exacerbation SNOMED: 774847414 (3) UTI (urinary tract infection) ICD Codes: N39.0 - Urinary tract infection, site not specified SNOMED: 48784156 Qualifiers: Qualified Codes: N39.0 - Urinary tract infection, site not specified (4) MELVIN (obstructive sleep apnea) ICD Codes: G47.33 - Obstructive sleep apnea (adult) (pediatric) SNOMED: 83319184 (5) HTN (hypertension) ICD Codes: I10 - Essential (primary) hypertension SNOMED: 48728890 (6) Obese ICD Codes: E66.9 - Obesity, unspecified SNOMED: 778674474, 239460252 (7) Sepsis ICD Codes: A41.9 - Sepsis, unspecified organism SNOMED: 54709281 Status: stable, progressing Assessment/Plan o2 pulm tx abx ot pt diet cbc bmp am dc plan Subjective Constitutional: Reports: weakness Respiratory: Reports: shortness of breath Allergies: Coded Allergies: HALOPERIDOL (Verified Allergy, Unknown, 06/16/17) All Systems: reviewed and negative except above Subjective sleepy o2nc Objective Last 24 Hour Vital Signs Date Time Temp Pulse Resp B/P (MAP) Pulse Ox O2 Delivery O2 Flow Rate FiO2 04/09/18 05:31 95 129/61 04/09/18 04:00 98.4 63 18 129/61 (83) 98 04/09/18 04:00 95 04/09/18 00:00 97.0 94 18 125/71 (89) 97 04/09/18 00:00 99 04/08/18 21:10 115 132/68 04/08/18 21:00 Nasal Cannula 2.0 04/08/18 20:00 97.6 100 20 132/68 (89) 95 04/08/18 20:00 115 04/08/18 19:45 Nasal Cannula 2.0 28 04/08/18 19:45 95 Nasal Cannula 2.0 28 04/08/18 19:45 69 20 Nasal Cannula 2.0 28 04/08/18 16:21 93 04/08/18 16:00 97.9 101 18 124/70 (88) 96 04/08/18 13:24 116 106/74 04/08/18 12:00 116 04/08/18 12:00 98.4 106 19 106/74 (85) 95 04/08/18 09:36 Nasal Cannula 2.0 28 04/08/18 09:36 95 Nasal Cannula 2.0 28 04/08/18 09:36 77 20 Nasal Cannula 2.0 28 04/08/18 09:00 Nasal Cannula 2.0 Intake and Output 04/08/18 04/09/18 19:00 07:00 Intake Total 280 ml Output Total 1000 ml Balance 280 ml -1000 ml Free Water 100 ml Tube Feeding 180 ml Output Urine Total 1000 ml # Voids 3 Laboratory Tests 04/09/18 06:00: White Blood Count 6.9, Red Blood Count 4.16L, Hemoglobin 13.7, Hematocrit 38.9, Mean Corpuscular Volume 94, Mean Corpuscular Hemoglobin 32.9H, Mean Corpuscular Hemoglobin Concent 35.1, Red Cell Distribution Width 12.6, Platelet Count 137L, Mean Platelet Volume 6.4L, Neutrophils (%) (Auto) 66.8, Lymphocytes (%) (Auto) 22.3, Monocytes (%) (Auto) 10.0, Eosinophils (%) (Auto) 0.1, Basophils (%) (Auto ) 0.8, Sodium Level 143, Potassium Level 3.6, Chloride Level 103, Carbon Dioxide Level 40H, Anion Gap 0L, Blood Urea Nitrogen 7, Creatinine 0.5L, Estimat Glomerular Filtration Rate , Glucose Level 98, Calcium Level 8.5 Height (Feet): 5 Height (Inches): 4.00 Weight (Pounds): 255 General Appearance: lethargic EENT: normal ENT inspection Neck: normal alignment Cardiovascular: normal peripheral pulses, normal rate, regular rhythm Respiratory/Chest: chest wall non-tender, decreased breath sounds Abdomen: normal bowel sounds, non tender, soft Extremities: normal inspection Edema: no edema noted Arm (L), no edema noted Arm (R), no edema noted Leg (L), no edema noted Leg (R), no edema noted Pedal (L), no edema noted Pedal (R), no edema noted Generalized Neurologic: motor weakness Skin: normal pigmentation, warm/dry Bill Lane DO Apr 09, 2018 08:03
[2018-04-09] MEDS: Depakote 500mg tab ORAL SCH ×2 (08:43→21:08)
[2018-04-09] MEDS: Heparin 5000 units/ml inj SUBQ SCH ×2 (08:49→21:08)
--- NOTE | 2018-04-09 08:55 | General Progress Note ---
Assessment/Plan Problem List: (1) Hypothyroidism ICD Codes: E03.9 - Hypothyroidism, unspecified SNOMED: 46206769 (2) COPD (chronic obstructive pulmonary disease) ICD Codes: J44.9 - Chronic obstructive pulmonary disease, unspecified SNOMED: 21800470 (3) HTN (hypertension) ICD Codes: I10 - Essential (primary) hypertension SNOMED: 16967528 Assessment/Plan continue Levothyroxine 75 mcg daily repeat TSH, free T4 in 4 weeks I sign off Subjective Allergies: Coded Allergies: HALOPERIDOL (Verified Allergy, Unknown, 06/16/17) All Systems: reviewed and negative except above Subjective events noted Objective Last 24 Hour Vital Signs Date Time Temp Pulse Resp B/P (MAP) Pulse Ox O2 Delivery O2 Flow Rate FiO2 04/09/18 08:00 98.4 108 22 130/63 (85) 95 04/09/18 05:31 95 129/61 04/09/18 04:00 98.4 63 18 129/61 (83) 98 04/09/18 04:00 95 04/09/18 00:00 97.0 94 18 125/71 (89) 97 04/09/18 00:00 99 04/08/18 21:10 115 132/68 04/08/18 21:00 Nasal Cannula 2.0 04/08/18 20:00 97.6 100 20 132/68 (89) 95 04/08/18 20:00 115 04/08/18 19:45 Nasal Cannula 2.0 28 04/08/18 19:45 95 Nasal Cannula 2.0 28 04/08/18 19:45 69 20 Nasal Cannula 2.0 28 04/08/18 16:21 93 04/08/18 16:00 97.9 101 18 124/70 (88) 96 04/08/18 13:24 116 106/74 04/08/18 12:00 116 04/08/18 12:00 98.4 106 19 106/74 (85) 95 04/08/18 09:36 Nasal Cannula 2.0 28 04/08/18 09:36 95 Nasal Cannula 2.0 28 04/08/18 09:36 77 20 Nasal Cannula 2.0 28 04/08/18 09:00 Nasal Cannula 2.0 Intake and Output 04/08/18 04/09/18 19:00 07:00 Intake Total 280 ml Output Total 1000 ml Balance 280 ml -1000 ml Free Water 100 ml Tube Feeding 180 ml Output Urine Total 1000 ml # Voids 3 Laboratory Tests 04/09/18 06:00: White Blood Count 6.9, Red Blood Count 4.16L, Hemoglobin 13.7, Hematocrit 38.9, Mean Corpuscular Volume 94, Mean Corpuscular Hemoglobin 32.9H, Mean Corpuscular Hemoglobin Concent 35.1, Red Cell Distribution Width 12.6, Platelet Count 137L, Mean Platelet Volume 6.4L, Neutrophils (%) (Auto) 66.8, Lymphocytes (%) (Auto) 22.3, Monocytes (%) (Auto) 10.0, Eosinophils (%) (Auto) 0.1, Basophils (%) (Auto ) 0.8, Sodium Level 143, Potassium Level 3.6, Chloride Level 103, Carbon Dioxide Level 40H, Anion Gap 0L, Blood Urea Nitrogen 7, Creatinine 0.5L, Estimat Glomerular Filtration Rate , Glucose Level 98, Calcium Level 8.5 Height (Feet): 5 Height (Inches): 4.00 Weight (Pounds): 255 General Appearance: no apparent distress Neck: normal alignment Cardiovascular: normal rate Respiratory/Chest: decreased breath sounds Abdomen: normal bowel sounds Objective Current Medications Medications (Trade) Dose Ordered Sig/Marleni Route PRN Reason Start Time Stop Time Status Last Admin Dose Admin Acetaminophen (Tylenol) 650 mg Q4H PRN ORAL fever 04/05/18 19:45 05/05/18 19:44 04/07/18 11:34 Albuterol/ Ipratropium (Albuterol/ Ipratropium) 3 ml Q4H PRN HHN Shortness of Breath 04/05/18 19:45 04/10/18 19:44 Diltiazem HCl (Cardizem) 90 mg Q8HR ORAL 04/06/18 22:00 05/06/18 21:59 04/09/18 05:31 Divalproex Sodium (Depakote) 500 mg Q12HR ORAL 04/06/18 21:00 05/06/18 08:59 04/09/18 08:43 Heparin Sodium (Porcine) (Heparin 5000 units/ml) 5,000 units EVERY 12 HOURS SUBQ 04/05/18 21:00 05/05/18 20:59 04/09/18 08:49 Levofloxacin 150 ml @ 100 mls/hr Q24H IVPB 04/06/18 18:30 04/13/18 18:29 04/08/18 18:11 Levothyroxine Sodium (Synthroid) 75 mcg Q24H ORAL 04/06/18 06:30 05/06/18 06:29 04/09/18 05:31 Lorazepam (Ativan) 1 mg Q6H PRN ORAL For Anxiety 04/05/18 19:45 04/12/18 19:44 04/08/18 21:10 Morphine Sulfate (Morphine Sulfate) 2 mg Q4H PRN IVP Moderate Pain (Pain Scale 4-6) 04/05/18 19:45 04/12/18 19:44 04/08/18 15:03 Nitroglycerin (Ntg) 0.4 mg Q5M PRN SL Prn Chest Pain 04/05/18 19:45 05/05/18 19:44 Ondansetron HCl (Zofran) 4 mg Q6H PRN IVP Nausea & Vomiting 04/05/18 19:45 05/05/18 19:44 Polyethylene Glycol (Miralax) 17 gm DAILYPRN PRN ORAL Constipation 04/05/18 19:45 05/05/18 19:44 Promethazine HCl/ Codeine (Phenergan with Codeine) 5 ml Q6H PRN ORAL For Cough 04/06/18 21:15 05/06/18 21:14 Risperidone (RisperDAL) 2 mg DAILY ORAL 04/06/18 09:00 05/06/18 08:59 04/09/18 08:43 Temazepam (Restoril) 15 mg HSPRN PRN ORAL Insomnia 04/05/18 19:45 04/12/18 19:44 04/08/18 00:16 Juwan Valladares MD Apr 09, 2018 08:55
--- NOTE | 2018-04-09 10:22 | Infectious Diseases Prog Note ---
Assessment/Plan Assessment/Plan . ASSESSMENT: The patient is a 72-year-old female with: COPD exacerbation/pneumonia. 04/05 CXR: left basilar opacity, likely atelectasis and pleural effusion, examination of both SP SOB Leukocytosis, Sp Afebrile UCx : PSA Colonizer no need to Rx Bilateral lower extremity edema. History of CHF. GERD. Peripheral neuropathy. Hypertension. COPD. CAD/GA. Schizophrenia PLAN: Cont patient on Levaquin, day # 4 /5, SP Vancomycin and cefepime x 1 d CBC and BMP Monitor culture Monitor chest x-ray Subjective Allergies: Coded Allergies: HALOPERIDOL (Verified Allergy, Unknown, 06/16/17) Subjective afebrile Comfortable Objective Vital Signs Last 24 Hour Vital Signs Date Time Temp Pulse Resp B/P (MAP) Pulse Ox O2 Delivery O2 Flow Rate FiO2 04/09/18 09:00 Nasal Cannula 2.0 04/09/18 08:00 98.4 108 22 130/63 (85) 95 04/09/18 07:10 Nasal Cannula 2.0 28 04/09/18 07:10 87 18 Nasal Cannula 2.0 28 04/09/18 07:10 96 Nasal Cannula 2.0 28 04/09/18 05:31 95 129/61 04/09/18 04:00 98.4 63 18 129/61 (83) 98 04/09/18 04:00 95 04/09/18 00:00 97.0 94 18 125/71 (89) 97 04/09/18 00:00 99 04/08/18 21:10 115 132/68 04/08/18 21:00 Nasal Cannula 2.0 04/08/18 20:00 97.6 100 20 132/68 (89) 95 04/08/18 20:00 115 04/08/18 19:45 Nasal Cannula 2.0 28 04/08/18 19:45 95 Nasal Cannula 2.0 28 04/08/18 19:45 69 20 Nasal Cannula 2.0 28 04/08/18 16:21 93 04/08/18 16:00 97.9 101 18 124/70 (88) 96 04/08/18 13:24 116 106/74 04/08/18 12:00 116 04/08/18 12:00 98.4 106 19 106/74 (85) 95 Height (Feet): 5 Height (Inches): 4.00 Weight (Pounds): 255 HEENT: anicteric Respiratory/Chest: normal breath sounds Cardiovascular: regular rhythm Abdomen: soft, non tender Laboratory Tests Test 04/09/18 06:00 White Blood Count 6.9 K/UL (4.8-10.8) Red Blood Count 4.16 M/UL (4.20-5.40) L Hemoglobin 13.7 G/DL (12.0-16.0) Hematocrit 38.9 % (37.0-47.0) Mean Corpuscular Volume 94 FL (80-99) Mean Corpuscular Hemoglobin 32.9 PG (27.0-31.0) H Mean Corpuscular Hemoglobin Concent 35.1 G/DL (32.0-36.0) Red Cell Distribution Width 12.6 % (11.6-14.8) Platelet Count 137 K/UL (150-450) L Mean Platelet Volume 6.4 FL (6.5-10.1) L Neutrophils (%) (Auto) 66.8 % (45.0-75.0) Lymphocytes (%) (Auto) 22.3 % (20.0-45.0) Monocytes (%) (Auto) 10.0 % (1.0-10.0) Eosinophils (%) (Auto) 0.1 % (0.0-3.0) Basophils (%) (Auto) 0.8 % (0.0-2.0) Sodium Level 143 MMOL/L (136-145) Potassium Level 3.6 MMOL/L (3.5-5.1) Chloride Level 103 MMOL/L (98-107) Carbon Dioxide Level 40 MMOL/L (21-32) H Anion Gap 0 mmol/L (5-15) L Blood Urea Nitrogen 7 mg/dL (7-18) Creatinine 0.5 MG/DL (0.55-1.30) L Estimat Glomerular Filtration Rate mL/min (>60) Glucose Level 98 MG/DL (74-106) Calcium Level 8.5 MG/DL (8.5-10.1) Current Medications Medications (Trade) Dose Ordered Sig/Marleni Route PRN Reason Start Time Stop Time Status Last Admin Dose Admin Acetaminophen (Tylenol) 650 mg Q4H PRN ORAL fever 04/05/18 19:45 05/05/18 19:44 10/25/18 11:34 Albuterol/ Ipratropium (Albuterol/ Ipratropium) 3 ml Q4H PRN HHN Shortness of Breath 04/05/18 19:45 04/10/18 19:44 Diltiazem HCl (Cardizem) 90 mg Q8HR ORAL 04/06/18 22:00 05/06/18 21:59 04/09/18 05:31 Divalproex Sodium (Depakote) 500 mg Q12HR ORAL 04/06/18 21:00 05/06/18 08:59 04/09/18 08:43 Heparin Sodium (Porcine) (Heparin 5000 units/ml) 5,000 units EVERY 12 HOURS SUBQ 04/05/18 21:00 05/05/18 20:59 04/09/18 08:49 Levofloxacin 150 ml @ 100 mls/hr Q24H IVPB 04/06/18 18:30 04/13/18 18:29 04/08/18 18:11 Levothyroxine Sodium (Synthroid) 75 mcg Q24H ORAL 04/06/18 06:30 05/06/18 06:29 04/09/18 05:31 Lorazepam (Ativan) 1 mg Q6H PRN ORAL For Anxiety 04/05/18 19:45 04/12/18 19:44 04/08/18 21:10 Morphine Sulfate (Morphine Sulfate) 2 mg Q4H PRN IVP Moderate Pain (Pain Scale 4-6) 04/05/18 19:45 04/12/18 19:44 04/08/18 15:03 Nitroglycerin (Ntg) 0.4 mg Q5M PRN SL Prn Chest Pain 04/05/18 19:45 05/05/18 19:44 Ondansetron HCl (Zofran) 4 mg Q6H PRN IVP Nausea & Vomiting 04/05/18 19:45 05/05/18 19:44 Polyethylene Glycol (Miralax) 17 gm DAILYPRN PRN ORAL Constipation 04/05/18 19:45 05/05/18 19:44 Promethazine HCl/ Codeine (Phenergan with Codeine) 5 ml Q6H PRN ORAL For Cough 04/06/18 21:15 05/06/18 21:14 Risperidone (RisperDAL) 2 mg DAILY ORAL 04/06/18 09:00 05/06/18 08:59 04/09/18 08:43 Temazepam (Restoril) 15 mg HSPRN PRN ORAL Insomnia 04/05/18 19:45 04/12/18 19:44 04/08/18 00:16 Iván Bernstein MD Apr 09, 2018 10:22
[2018-04-09] MEDS ORDERED: Albuterol/Ipratropium 3ml neb HHN PRN (11:45)
[2018-04-09 12:00] VITALS: BP 115/73
[2018-04-09 16:00] VITALS: BP 110/58
--- NOTE | 2018-04-09 19:30 | Progress Note ---
DATE: 04/09/2018 NOTE: "POOR AUDIO QUALITY" SUBJECTIVE: The patient is a 72-year-old patient with COPD very confused, disorganized, mood labile confusion, disorganized thought process, and mood lability. She has pressured speech and mood lability. MENTAL STATUS EXAMINATION: This patient is a 72-year-old female. Appearance is disheveled. Attitude, irritable and agitated. Affect, guarded and restricted. Intellect poor. Mood, depressed and anxious. Motor activity, psychomotor agitation. Attention span is poor. Orientation x2. Speech is low volume and slurred. Thought process, disorganized and illogical. Thought content, auditory hallucinations and paranoid delusions. Insight and judgment is poor. DIAGNOSIS: Schizoaffective, bipolar type. PLAN: Treat her with Risperdal 2 mg daily, Depakote 500 mg twice a day, and Ativan 1 mg every 6 hours p.r.n. anxiety and agitation. Provided her with 20 minutes of cognitive behavioral therapy helped her identify automatic negative thoughts and helped her to convert those negative thoughts to more positive thoughts to reduce depression, anxiety, and suicidality. Twenty minutes of cognitive behavioral therapy provided. Chart was reviewed. Discussed with staff. Seen and assessed in her room. Filipe Yen M.D. DR: ERIC JOB#: [id number] CC:
[2018-04-09 20:00] VITALS: BP 101/49
[2018-04-09] MEDS: LORazepam 1mg tab ORAL PRN (21:08)
[2018-04-10] VITALS: BP 114/63
[2018-04-10 04:00] VITALS: BP 110/68
[2018-04-10] MEDS: dilTIAZem HCl 90mg tab ORAL SCH ×3 (05:46→21:00)
[2018-04-10 07:04] LABS: BASOPHILS % (AUTO) 0.7 % (0.0-2.0); EOSINOPHILS % (AUTO) 0.2 % (0.0-3.0); HEMATOCRIT 38.2 % (37.0-47.0); HEMOGLOBIN 13.3 G/DL (12.0-16.0); LYMPHOCYTES % (AUTO) 17.7 % (20.0-45.0); MEAN CORPUSCULAR VOLUME 93 FL (80-99); MONOCYTES % (AUTO) 11.1 % (1.0-10.0); NEUTROPHILS % (AUTO) 70.4 % (45.0-75.0); PLATELET COUNT 133 K/UL (150-450); RED BLOOD COUNT 4.09 M/UL (4.20-5.40); RED CELL DISTRIBUTION WIDTH 12.5 % (11.6-14.8); WHITE BLOOD COUNT 7.3 K/UL (4.8-10.8)
[2018-04-10 07:24] LABS: ANION GAP 1 mmol/L (5-15); BLOOD UREA NITROGEN 9 mg/dL (7-18); CALCIUM 8.3 MG/DL (8.5-10.1); CARBON DIOXIDE 33 MMOL/L (21-32); CHLORIDE 104 MMOL/L (98-107); CREATININE 0.5 MG/DL (0.55-1.30); POTASSIUM 3.4 MMOL/L (3.5-5.1); SODIUM 138 MMOL/L (136-145)
[2018-04-10 08:00] VITALS: BP 103/56
--- NOTE | 2018-04-10 08:06 | Pulmonology Progress Note ---
Assessment/Plan Assessment/Plan ASSESSMENT sepsis COPD with exacerbation PNA, poss aspiration PNA Tachycardia, probably multifocal A tach MELVIN vs obesity hypoventilation syndrome HTN Obesity schizophrenia bipolar type PLAN OF CARE Tele O2 HHN prn empiric abx blood cx negative, urine cx colonizer ID follows a/tussive prn swallow eval in am fup with CXR in am Cardizem for BP management, monitor HR cardio follows ECHO with pEF DVT prophylaxis replace K PT/OT psych meds optimized as per psych outpt sleep study recommended if no further tachycardioa can be transferred to [place] - if OK with cardio case discussed and evaluated by supervising physician Subjective Allergies: Coded Allergies: HALOPERIDOL (Verified Allergy, Unknown, 06/16/17) Subjective this am no tachy CO2 decreasing K-3.4 no chest pain no resp distress intermittent cough with eating Objective Last 24 Hour Vital Signs Date Time Temp Pulse Resp B/P (MAP) Pulse Ox O2 Delivery O2 Flow Rate FiO2 04/10/18 07:45 95 Nasal Cannula 2.0 28 04/10/18 07:45 88 18 Nasal Cannula 2.0 04/10/18 07:45 Nasal Cannula 2.0 28 04/10/18 05:46 117 110/68 04/10/18 04:00 98.0 100 20 110/68 (82) 94 04/10/18 04:00 117 04/10/18 00:00 114 04/10/18 00:00 98.3 106 20 114/63 (80) 92 04/09/18 23:19 Nasal Cannula 2.0 28 04/09/18 21:08 96 101/49 04/09/18 21:00 84 18 Nasal Cannula 2.0 28 04/09/18 21:00 93 Nasal Cannula 2.0 28 04/09/18 21:00 Nasal Cannula 2.0 04/09/18 20:00 98.4 96 20 101/49 (66) 92 04/09/18 20:00 118 04/09/18 16:09 122 04/09/18 16:00 98.6 110 22 110/58 (75) 95 04/09/18 14:24 118 115/73 04/09/18 12:00 98.0 118 20 115/73 (87) 94 04/09/18 11:54 125 04/09/18 09:00 Nasal Cannula 2.0 Intake and Output 04/09/18 04/10/18 19:00 07:00 Intake Total 720 ml Output Total 600 ml Balance 120 ml Intake Oral 720 ml Output Urine Total 600 ml # Voids 4 # Bowel Movements 1 2 Objective General Appearance: no acute distress HEENT: normocephalic, atraumatic Respiratory/Chest: few scattered crackles Cardiovascular: no JVD, tachycardia - ST with frequent PAC Abdomen: normal bowel sounds, soft, non tender Extremities: no edema, pedal pulses normal Neurologic/Psychiatric: abnormal gait, alert, responsive Musculoskeletal: atrophy - BLE Laboratory Tests 04/10/18 05:10: White Blood Count 7.3, Red Blood Count 4.09L, Hemoglobin 13.3, Hematocrit 38.2, Mean Corpuscular Volume 93, Mean Corpuscular Hemoglobin 32.5H, Mean Corpuscular Hemoglobin Concent 34.8, Red Cell Distribution Width 12.5, Platelet Count 133L, Mean Platelet Volume 6.2L, Neutrophils (%) (Auto) 70.4, Lymphocytes (%) (Auto) 17.7L, Monocytes (%) (Auto) 11.1H, Eosinophils (%) (Auto) 0.2, Basophils (%) ( Auto) 0.7, Sodium Level 138, Potassium Level 3.4L, Chloride Level 104, Carbon Dioxide Level 33H, Anion Gap 1L, Blood Urea Nitrogen 9, Creatinine 0.5L, Estimat Glomerular Filtration Rate , Glucose Level 93, Calcium Level 8.3L Current Medications Medications (Trade) Dose Ordered Sig/Marleni Route PRN Reason Start Time Stop Time Status Last Admin Dose Admin Acetaminophen (Tylenol) 650 mg Q4H PRN ORAL fever 04/05/18 19:45 05/05/18 19:44 04/07/18 11:34 Albuterol/ Ipratropium (Albuterol/ Ipratropium) 3 ml Q4H PRN HHN Shortness of Breath 04/09/18 11:45 04/14/18 11:44 Diltiazem HCl (Cardizem) 90 mg Q8HR ORAL 04/06/18 22:00 05/06/18 21:59 04/10/18 05:46 Divalproex Sodium (Depakote) 500 mg Q12HR ORAL 04/06/18 21:00 05/06/18 08:59 04/09/18 21:08 Heparin Sodium (Porcine) (Heparin 5000 units/ml) 5,000 units EVERY 12 HOURS SUBQ 04/05/18 21:00 05/05/18 20:59 04/09/18 21:08 Levofloxacin (Levaquin) 750 mg Q24H ORAL 04/09/18 17:00 04/13/18 18:29 04/09/18 17:20 Levothyroxine Sodium (Synthroid) 75 mcg Q24H ORAL 04/06/18 06:30 05/06/18 06:29 04/10/18 05:46 Lorazepam (Ativan) 1 mg Q6H PRN ORAL For Anxiety 04/05/18 19:45 04/12/18 19:44 04/09/18 21:08 Morphine Sulfate (Morphine Sulfate) 2 mg Q4H PRN IVP Moderate Pain (Pain Scale 4-6) 04/05/18 19:45 04/12/18 19:44 04/08/18 15:03 Nitroglycerin (Ntg) 0.4 mg Q5M PRN SL Prn Chest Pain 04/05/18 19:45 05/05/18 19:44 Ondansetron HCl (Zofran) 4 mg Q6H PRN IVP Nausea & Vomiting 04/05/18 19:45 05/05/18 19:44 Polyethylene Glycol (Miralax) 17 gm DAILYPRN PRN ORAL Constipation 04/05/18 19:45 05/05/18 19:44 Promethazine HCl/ Codeine (Phenergan with Codeine) 5 ml Q6H PRN ORAL For Cough 04/06/18 21:15 05/06/18 21:14 Risperidone (RisperDAL) 2 mg DAILY ORAL 04/06/18 09:00 05/06/18 08:59 04/09/18 08:43 Temazepam (Restoril) 15 mg HSPRN PRN ORAL Insomnia 04/05/18 19:45 04/12/18 19:44 04/08/18 00:16 Sharon Gimenez NP Apr 10, 2018 08:06
[2018-04-10] MEDS: LORazepam 1mg tab ORAL PRN (08:16)
[2018-04-10] MEDS: Depakote 500mg tab ORAL SCH ×2 (08:16→20:46)
[2018-04-10] MEDS: Heparin 5000 units/ml inj SUBQ SCH ×2 (08:21→20:49)
--- NOTE | 2018-04-10 08:41 | General Progress Note ---
Assessment/Plan Problem List: (1) CHF (congestive heart failure) ICD Codes: I50.9 - Heart failure, unspecified SNOMED: 17281705 (2) COPD exacerbation ICD Codes: J44.1 - Chronic obstructive pulmonary disease with (acute) exacerbation SNOMED: 772792154 (3) UTI (urinary tract infection) ICD Codes: N39.0 - Urinary tract infection, site not specified SNOMED: 92267896 Qualifiers: Qualified Codes: N39.0 - Urinary tract infection, site not specified (4) MELVIN (obstructive sleep apnea) ICD Codes: G47.33 - Obstructive sleep apnea (adult) (pediatric) SNOMED: 79051837 (5) HTN (hypertension) ICD Codes: I10 - Essential (primary) hypertension SNOMED: 85018971 (6) Obese ICD Codes: E66.9 - Obesity, unspecified SNOMED: 677797255, 135475448 (7) Sepsis ICD Codes: A41.9 - Sepsis, unspecified organism SNOMED: 57090524 Status: unchanged Assessment/Plan o2 pulm tx abx ot pt diet cbc bmp am dc plan Subjective Constitutional: Reports: weakness Respiratory: Reports: shortness of breath Allergies: Coded Allergies: HALOPERIDOL (Verified Allergy, Unknown, 06/16/17) All Systems: reviewed and negative except above Subjective sleepy o2nc Objective Last 24 Hour Vital Signs Date Time Temp Pulse Resp B/P (MAP) Pulse Ox O2 Delivery O2 Flow Rate FiO2 04/10/18 07:45 95 Nasal Cannula 2.0 04/10/18 07:45 88 18 Nasal Cannula 2.0 04/10/18 07:45 Nasal Cannula 2.0 04/10/18 05:46 117 110/68 04/10/18 04:00 98.0 100 20 110/68 (82) 94 04/10/18 04:00 117 04/10/18 00:00 114 04/10/18 00:00 98.3 106 20 114/63 (80) 92 04/09/18 23:19 Nasal Cannula 2.0 04/09/18 21:08 96 101/49 04/09/18 21:00 84 18 Nasal Cannula 2.0 04/09/18 21:00 93 Nasal Cannula 2.0 04/09/18 21:00 Nasal Cannula 2.0 04/09/18 20:00 98.4 96 20 101/49 (66) 92 04/09/18 20:00 118 04/09/18 16:09 122 04/09/18 16:00 98.6 110 22 110/58 (75) 95 04/09/18 14:24 118 115/73 04/09/18 12:00 98.0 118 20 115/73 (87) 94 04/09/18 11:54 125 04/09/18 09:00 Nasal Cannula 2.0 Intake and Output 04/09/18 04/10/18 19:00 07:00 Intake Total 720 ml Output Total 600 ml Balance 120 ml Intake Oral 720 ml Output Urine Total 600 ml # Voids 4 # Bowel Movements 1 2 Laboratory Tests 04/10/18 05:10: White Blood Count 7.3, Red Blood Count 4.09L, Hemoglobin 13.3, Hematocrit 38.2, Mean Corpuscular Volume 93, Mean Corpuscular Hemoglobin 32.5H, Mean Corpuscular Hemoglobin Concent 34.8, Red Cell Distribution Width 12.5, Platelet Count 133L, Mean Platelet Volume 6.2L, Neutrophils (%) (Auto) 70.4, Lymphocytes (%) (Auto) 17.7L, Monocytes (%) (Auto) 11.1H, Eosinophils (%) (Auto) 0.2, Basophils (%) ( Auto) 0.7, Sodium Level 138, Potassium Level 3.4L, Chloride Level 104, Carbon Dioxide Level 33H, Anion Gap 1L, Blood Urea Nitrogen 9, Creatinine 0.5L, Estimat Glomerular Filtration Rate , Glucose Level 93, Calcium Level 8.3L Height (Feet): 5 Height (Inches): 4.00 Weight (Pounds): 255 General Appearance: lethargic EENT: normal ENT inspection Neck: normal alignment Cardiovascular: normal peripheral pulses, normal rate, regular rhythm Respiratory/Chest: chest wall non-tender, decreased breath sounds Abdomen: normal bowel sounds, non tender, soft Extremities: normal inspection Edema: no edema noted Arm (L), no edema noted Arm (R), no edema noted Leg (L), no edema noted Leg (R), no edema noted Pedal (L), no edema noted Pedal (R), no edema noted Generalized Neurologic: motor weakness Skin: normal pigmentation, warm/dry Bill Lane DO Apr 10, 2018 08:41
[2018-04-10] MEDS ORDERED: Morphine Sulfate 2mg/ml Inj IVP PRN ×2 (10:00)
[2018-04-10] MEDS ORDERED: LORazepam 1mg tab ORAL PRN (10:00)
[2018-04-10 12:00] VITALS: BP 108/67
[2018-04-10 16:00] VITALS: BP 126/73
--- NOTE | 2018-04-10 17:49 | Cardiology Progress Note ---
Assessment/Plan Assessment/Plan 1. Most likely multifocal atrial tachycardia, secondary to underlying chronic obstructive pulmonary disease. 2D echocardiography shows normal LV systolic function. 2. History of chronic obstructive pulmonary disease with possible left pleural effusion. Pulmonary followup. 3. Suspect obesity hypoventilation syndrome. Subjective Subjective Sinus bradycardia at 57. Objective Last 24 Hour Vital Signs Date Time Temp Pulse Resp B/P (MAP) Pulse Ox O2 Delivery O2 Flow Rate FiO2 04/10/18 16:45 112 04/10/18 16:00 97.9 125 20 126/73 (90) 93 04/10/18 14:04 99 108/67 04/10/18 12:01 109 04/10/18 12:00 97.1 99 18 108/67 (81) 95 04/10/18 09:00 Nasal Cannula 2.0 04/10/18 08:00 96.8 57 18 103/56 (72) 96 04/10/18 07:57 85 04/10/18 07:45 95 Nasal Cannula 2.0 04/10/18 07:45 88 18 Nasal Cannula 2.0 04/10/18 07:45 Nasal Cannula 2.0 04/10/18 05:46 117 110/68 04/10/18 04:00 98.0 100 20 110/68 (82) 94 04/10/18 04:00 117 04/10/18 00:00 114 04/10/18 00:00 98.3 106 20 114/63 (80) 92 04/09/18 23:19 Nasal Cannula 2.0 28 04/09/18 21:08 96 101/49 04/09/18 21:00 84 18 Nasal Cannula 2.0 04/09/18 21:00 93 Nasal Cannula 2.0 04/09/18 21:00 Nasal Cannula 2.0 04/09/18 20:00 98.4 96 20 101/49 (66) 92 04/09/18 20:00 118 Intake and Output 04/09/18 04/10/18 18:59 06:59 Intake Total 720 ml Output Total 600 ml Balance 120 ml Intake Oral 720 ml Output Urine Total 600 ml # Voids 4 # Bowel Movements 1 2 2D Echo: LVEF 55%, Mold LVH, Mild LAE, RVSP 32 mmHg Laboratory Tests Test 04/10/18 05:10 White Blood Count 7.3 K/UL (4.8-10.8) Red Blood Count 4.09 M/UL (4.20-5.40) L Hemoglobin 13.3 G/DL (12.0-16.0) Hematocrit 38.2 % (37.0-47.0) Mean Corpuscular Volume 93 FL (80-99) Mean Corpuscular Hemoglobin 32.5 PG (27.0-31.0) H Mean Corpuscular Hemoglobin Concent 34.8 G/DL (32.0-36.0) Red Cell Distribution Width 12.5 % (11.6-14.8) Platelet Count 133 K/UL (150-450) L Mean Platelet Volume 6.2 FL (6.5-10.1) L Neutrophils (%) (Auto) 70.4 % (45.0-75.0) Lymphocytes (%) (Auto) 17.7 % (20.0-45.0) L Monocytes (%) (Auto) 11.1 % (1.0-10.0) H Eosinophils (%) (Auto) 0.2 % (0.0-3.0) Basophils (%) (Auto) 0.7 % (0.0-2.0) Sodium Level 138 MMOL/L (136-145) Potassium Level 3.4 MMOL/L (3.5-5.1) L Chloride Level 104 MMOL/L (98-107) Carbon Dioxide Level 33 MMOL/L (21-32) H Anion Gap 1 mmol/L (5-15) L Blood Urea Nitrogen 9 mg/dL (7-18) Creatinine 0.5 MG/DL (0.55-1.30) L Estimat Glomerular Filtration Rate mL/min (>60) Glucose Level 93 MG/DL (74-106) Calcium Level 8.3 MG/DL (8.5-10.1) L Objective HEENT: Atraumatic and normocephalic. Anicteric. Pupils are equal, round, and reactive to light and accommodation. Extraocular muscles intact. NECK: JVP cannot be assessed due to obesity and short neck. No carotid bruit. Carotid upstrokes 2+ bilaterally. CARDIOVASCULAR: Normal S1, S2. Regularly rhythm. A 2/6 mid systolic murmur at the left sternal border. LUNGS: Diminished breath sounds at both bases. ABDOMEN: Obese. Do not appreciate hepatosplenomegaly. Soft. Positive bowel sounds. EXTREMITIES: There is 2+ to 3+ bilateral lower extremity edema. Jose Daniel Grajeda MD Apr 10, 2018 17:49
--- NOTE | 2018-04-10 18:15 | Progress Note ---
DATE: 04/10/2018 SUBJECTIVE: This is a 72-year-old female patient with sepsis and COPD. She continued to be confused and disorganized. She has mood lability worsened by the stress of her medical illness so attending physician has requested daily psychiatric consultation. MENTAL STATUS EXAM: This is a 72-year-old female. Appearance is disheveled. Attitude, irritable and agitated. Affect guarded and restricted. Intellect poor. Mood, depressed and anxious. Motor activity, psychomotor agitation. Attention span is poor. Orientation x2. Speech is pressured. Thought process, disorganized and illogical. Thought content, auditory hallucinations and paranoid delusions. Insight and judgment is poor. DIAGNOSIS: Schizoaffective, bipolar type. PLAN: Treat her with Risperdal 2 mg daily, Depakote 500 mg q.12 h., Ativan 1 mg p.r.n. anxiety and agitation. Also, provide her with 20 minutes of cognitive behavioral therapy to identify automatic negative thoughts and help her convert those negative thoughts to more positive thoughts to reduce depression and anxiety. Chart reviewed. Discussed with staff. Seen and assessed in the room. Filipe Yen M.D. DR: ADRIANA JOB#: [id number] CC:
--- NOTE | 2018-04-10 18:45 | Progress Note ---
DATE: 04/10/2018 SUBJECTIVE: This is a 72-year-old female patient with sepsis and COPD, but she has altered mental status as a result that is why, her attending has requested daily psychiatric consultation. MENTAL STATUS EXAMINATION: This is a 72-year-old female. Appearance is disheveled. Attitude, irritable and agitated. Affect, guarded and restricted. Intellect poor. Mood, depressed and anxious. Motor activity, psychomotor agitation. Attention span is poor. Orientation x2. Speech is pressured. Thought process, disorganized and illogical. Thought content, auditory hallucinations and paranoid delusions. Insight and judgment is poor. DIAGNOSIS: Schizoaffective, bipolar type. PLAN: Risperdal 2 mg daily, Depakote 500 mg q.12 hours, Ativan 1 mg every 6 hours p.r.n. anxiety and agitation. Provide her with 20 minutes of cognitive behavioral therapy to help this patient identify automatic negative thoughts and help her convert those negative thoughts to more positive thoughts to reduce depression, anxiety, and suicidality. Chart was reviewed. Discussed with staff. Seen and assessed in her room. Filipe Yen M.D. DR: ADRIANA JOB#: [id number] CC:
[2018-04-10 20:00] VITALS: BP 105/77
[2018-04-11] VITALS: BP 119/69
[2018-04-11 04:00] VITALS: BP 110/66
[2018-04-11] MEDS: dilTIAZem HCl 90mg tab ORAL SCH ×2 (05:30→14:44)
[2018-04-11 07:55] VITALS: BP 119/65
[2018-04-11] MEDS: Depakote 500mg tab ORAL SCH (08:30)
[2018-04-11] MEDS: Heparin 5000 units/ml inj SUBQ SCH (08:31)
--- NOTE | 2018-04-11 10:12 | Infectious Diseases Prog Note ---
Assessment/Plan Assessment/Plan . ASSESSMENT: The patient is a 72-year-old female with: COPD exacerbation/pneumonia. 04/05 CXR: left basilar opacity, likely atelectasis and pleural effusion, examination of both SP SOB Leukocytosis, Sp Afebrile UCx : PSA Colonizer no need to Rx Bilateral lower extremity edema. History of CHF. GERD. Peripheral neuropathy. Hypertension. COPD. CAD/[place]. Schizophrenia PLAN: Monitor pt off of AB Rx 04/11 SP Levaquin, day # 5 /, SP Vancomycin and cefepime x 1 d CBC and BMP Monitor culture Monitor chest x-ray Subjective Constitutional: Denies: no symptoms, fever, chills, fatigue, anorexia, drenching sweats, other Allergies: Coded Allergies: HALOPERIDOL (Verified Allergy, Unknown, 06/16/17) Subjective afebrile Comfortable Objective Vital Signs Last 24 Hour Vital Signs Date Time Temp Pulse Resp B/P (MAP) Pulse Ox O2 Delivery O2 Flow Rate FiO2 04/11/18 09:56 83 18 Nasal Cannula 2.0 04/11/18 09:56 96 Nasal Cannula 2.0 28 04/11/18 09:56 Nasal Cannula 2.0 28 04/11/18 09:00 Nasal Cannula 2.0 04/11/18 07:55 98.6 105 20 119/65 (83) 95 04/11/18 07:42 98 04/11/18 05:30 85 110/66 04/11/18 04:00 85 04/11/18 04:00 97.8 89 18 110/66 (81) 96 04/11/18 00:00 93 04/11/18 00:00 98.1 83 20 119/69 (86) 94 04/10/18 21:00 81 105/77 04/10/18 21:00 Nasal Cannula 2.0 04/10/18 20:17 81 18 Nasal Cannula 2.0 28 04/10/18 20:17 Nasal Cannula 2.0 28 04/10/18 20:17 95 Nasal Cannula 2.0 28 04/10/18 20:00 124 04/10/18 20:00 98.0 110 20 105/77 (86) 94 04/10/18 16:45 112 04/10/18 16:00 97.9 125 20 126/73 (90) 93 04/10/18 14:04 99 108/67 04/10/18 12:01 109 04/10/18 12:00 97.1 99 18 108/67 (81) 95 Height (Feet): 5 Height (Inches): 4.00 Weight (Pounds): 255 HEENT: atraumatic Respiratory/Chest: normal breath sounds Cardiovascular: normal rate Abdomen: no organomegaly Current Medications Medications (Trade) Dose Ordered Sig/Marleni Route PRN Reason Start Time Stop Time Status Last Admin Dose Admin Acetaminophen (Tylenol) 650 mg Q4H PRN ORAL fever 04/05/18 19:45 05/05/18 19:44 04/07/18 11:34 Albuterol/ Ipratropium (Albuterol/ Ipratropium) 3 ml Q4H PRN HHN Shortness of Breath 04/09/18 11:45 04/14/18 11:44 Diltiazem HCl (Cardizem) 90 mg Q8HR ORAL 04/06/18 22:00 05/06/18 21:59 04/11/18 05:30 Divalproex Sodium (Depakote) 500 mg Q12HR ORAL 04/06/18 21:00 05/06/18 08:59 04/11/18 08:30 Heparin Sodium (Porcine) (Heparin 5000 units/ml) 5,000 units EVERY 12 HOURS SUBQ 04/05/18 21:00 05/05/18 20:59 04/11/18 08:31 Levofloxacin (Levaquin) 750 mg Q24H ORAL 04/09/18 17:00 04/13/18 18:29 04/10/18 17:14 Levothyroxine Sodium (Synthroid) 75 mcg Q24H ORAL 04/06/18 06:30 05/06/18 06:29 04/11/18 05:30 Lorazepam (Ativan) 1 mg Q6H PRN ORAL For Anxiety 04/10/18 10:00 04/17/18 09:59 04/10/18 20:47 Morphine Sulfate (Morphine Sulfate) 2 mg Q4H PRN IVP PAIN 4-10 04/10/18 10:00 04/17/18 09:59 Nitroglycerin (Ntg) 0.4 mg Q5M PRN SL Prn Chest Pain 04/05/18 19:45 05/05/18 19:44 Ondansetron HCl (Zofran) 4 mg Q6H PRN IVP Nausea & Vomiting 04/05/18 19:45 05/05/18 19:44 Polyethylene Glycol (Miralax) 17 gm DAILYPRN PRN ORAL Constipation 04/05/18 19:45 05/05/18 19:44 Promethazine HCl/ Codeine (Phenergan with Codeine) 5 ml Q6H PRN ORAL For Cough 04/06/18 21:15 05/06/18 21:14 Risperidone (RisperDAL) 2 mg DAILY ORAL 04/06/18 09:00 05/06/18 08:59 04/11/18 08:30 Temazepam (Restoril) 15 mg HSPRN PRN ORAL Insomnia 04/10/18 21:00 04/17/18 20:59 Iván Bernstein MD Apr 11, 2018 10:12
[2018-04-11 10:20] LABS: BASOPHILS % (AUTO) 0.8 % (0.0-2.0); EOSINOPHILS % (AUTO) 0.7 % (0.0-3.0); HEMATOCRIT 38.8 % (37.0-47.0); HEMOGLOBIN 13.3 G/DL (12.0-16.0); MEAN CORPUSCULAR VOLUME 93 FL (80-99); MONOCYTES % (AUTO) 10.6 % (1.0-10.0); NEUTROPHILS % (AUTO) 75.9 % (45.0-75.0); PLATELET COUNT 150 K/UL (150-450); RED BLOOD COUNT 4.19 M/UL (4.20-5.40); RED CELL DISTRIBUTION WIDTH 12.2 % (11.6-14.8)
[2018-04-11 10:37] LABS: ANION GAP 4 mmol/L (5-15); BLOOD UREA NITROGEN 12 mg/dL (7-18); CALCIUM 8.6 MG/DL (8.5-10.1); CARBON DIOXIDE 34 MMOL/L (21-32); CHLORIDE 102 MMOL/L (98-107); CREATININE 0.5 MG/DL (0.55-1.30); POTASSIUM 3.9 MMOL/L (3.5-5.1); SODIUM 140 MMOL/L (136-145)
--- NOTE | 2018-04-11 11:49 | Pulmonology Progress Note ---
Assessment/Plan Problems: (1) Aspiration pneumonia (2) Sepsis (3) COPD exacerbation (4) Obese (5) HTN (hypertension) (6) MELVIN (obstructive sleep apnea) Assessment/Plan looks better respiratory treatment continue abx check sputum and urine cultures on Cardizem afebrile Subjective ROS Limited/Unobtainable: No Constitutional: Reports: no symptoms HEENT: Repors: no symptoms Respiratory: Reports: no symptoms Allergies: Coded Allergies: HALOPERIDOL (Verified Allergy, Unknown, 06/16/17) Objective Last 24 Hour Vital Signs Date Time Temp Pulse Resp B/P (MAP) Pulse Ox O2 Delivery O2 Flow Rate FiO2 04/11/18 09:56 83 18 Nasal Cannula 2.0 28 04/11/18 09:56 96 Nasal Cannula 2.0 28 04/11/18 09:56 Nasal Cannula 2.0 28 04/11/18 09:00 Nasal Cannula 2.0 04/11/18 07:55 98.6 105 20 119/65 (83) 95 04/11/18 07:42 98 04/11/18 05:30 85 110/66 04/11/18 04:00 85 04/11/18 04:00 97.8 89 18 110/66 (81) 96 04/11/18 00:00 93 04/11/18 00:00 98.1 83 20 119/69 (86) 94 04/10/18 21:00 81 105/77 04/10/18 21:00 Nasal Cannula 2.0 04/10/18 20:17 81 18 Nasal Cannula 2.0 28 04/10/18 20:17 Nasal Cannula 2.0 28 04/10/18 20:17 95 Nasal Cannula 2.0 28 04/10/18 20:00 124 04/10/18 20:00 98.0 110 20 105/77 (86) 94 04/10/18 16:45 112 04/10/18 16:00 97.9 125 20 126/73 (90) 93 04/10/18 14:04 99 108/67 04/10/18 12:01 109 04/10/18 12:00 97.1 99 18 108/67 (81) 95 Intake and Output 04/10/18 04/11/18 19:00 07:00 Intake Total 390 ml Output Total 300 ml Balance 90 ml Intake Oral 390 ml Output Urine Total 300 ml # Voids 1 5 # Bowel Movements 11 1 General Appearance: WD/WN HEENT: normocephalic, atraumatic Respiratory/Chest: chest wall non-tender, lungs clear Breasts: no masses Cardiovascular: normal peripheral pulses Abdomen: normal bowel sounds, soft, non tender Genitourinary: normal external genitalia Extremities: no cyanosis, no clubbing Skin: no rash Microbiology Date/Time Source Procedure Growth Status 04/10/18 23:00 Sputum Gram Stain - Final Resulted 04/10/18 23:00 Sputum Sputum Culture Pending Resulted Laboratory Tests 04/11/18 10:05: White Blood Count 7.0, Red Blood Count 4.19L, Hemoglobin 13.3, Hematocrit 38.8, Mean Corpuscular Volume 93, Mean Corpuscular Hemoglobin 31.9H, Mean Corpuscular Hemoglobin Concent 34.3, Red Cell Distribution Width 12.2, Platelet Count 150, Mean Platelet Volume 7.1, Neutrophils (%) (Auto) 75.9H, Lymphocytes (%) (Auto) 12.0L, Monocytes (%) (Auto) 10.6H, Eosinophils (%) (Auto) 0.7, Basophils (%) ( Auto) 0.8, Sodium Level 140, Potassium Level 3.9, Chloride Level 102, Carbon Dioxide Level 34H, Anion Gap 4L, Blood Urea Nitrogen 12, Creatinine 0.5L, Estimat Glomerular Filtration Rate , Glucose Level 111H, Calcium Level 8.6 Current Medications Medications (Trade) Dose Ordered Sig/Marleni Route PRN Reason Start Time Stop Time Status Last Admin Dose Admin Acetaminophen (Tylenol) 650 mg Q4H PRN ORAL fever 04/05/18 19:45 05/05/18 19:44 04/07/18 11:34 Albuterol/ Ipratropium (Albuterol/ Ipratropium) 3 ml Q4H PRN HHN Shortness of Breath 04/09/18 11:45 04/14/18 11:44 Diltiazem HCl (Cardizem) 90 mg Q8HR ORAL 04/06/18 22:00 05/06/18 21:59 04/11/18 05:30 Divalproex Sodium (Depakote) 500 mg Q12HR ORAL 04/06/18 21:00 05/06/18 08:59 04/11/18 08:30 Heparin Sodium (Porcine) (Heparin 5000 units/ml) 5,000 units EVERY 12 HOURS SUBQ 04/05/18 21:00 05/05/18 20:59 04/11/18 08:31 Levothyroxine Sodium (Synthroid) 75 mcg Q24H ORAL 04/06/18 06:30 05/06/18 06:29 04/11/18 05:30 Lorazepam (Ativan) 1 mg Q6H PRN ORAL For Anxiety 04/10/18 10:00 04/17/18 09:59 04/10/18 20:47 Morphine Sulfate (Morphine Sulfate) 2 mg Q4H PRN IVP PAIN 4-10 04/10/18 10:00 04/17/18 09:59 Nitroglycerin (Ntg) 0.4 mg Q5M PRN SL Prn Chest Pain 04/05/18 19:45 05/05/18 19:44 Ondansetron HCl (Zofran) 4 mg Q6H PRN IVP Nausea & Vomiting 04/05/18 19:45 05/05/18 19:44 Polyethylene Glycol (Miralax) 17 gm DAILYPRN PRN ORAL Constipation 04/05/18 19:45 05/05/18 19:44 Promethazine HCl/ Codeine (Phenergan with Codeine) 5 ml Q6H PRN ORAL For Cough 04/06/18 21:15 05/06/18 21:14 Risperidone (RisperDAL) 2 mg DAILY ORAL 04/06/18 09:00 05/06/18 08:59 04/11/18 08:30 Temazepam (Restoril) 15 mg HSPRN PRN ORAL Insomnia 04/10/18 21:00 04/17/18 20:59 Fartun Gan MD Apr 11, 2018 11:49
[2018-04-11 12:00] VITALS: BP 111/71
--- NOTE | 2018-04-11 13:06 | Diagnostic Imaging Report ---
Indication: Dyspnea Comparison: 04/05/2018 A single view chest radiograph was obtained. Findings: Mild vascular congestion may be present. Heart is enlarged. Bones are osteopenic. Left costophrenic angle is blunted. IMPRESSION: Possible mild CHF. Correlate clinically
--- NOTE | 2018-04-11 13:36 | General Progress Note ---
Assessment/Plan Problem List: (1) CHF (congestive heart failure) ICD Codes: I50.9 - Heart failure, unspecified SNOMED: 29992806 (2) COPD exacerbation ICD Codes: J44.1 - Chronic obstructive pulmonary disease with (acute) exacerbation SNOMED: 800817016 (3) UTI (urinary tract infection) ICD Codes: N39.0 - Urinary tract infection, site not specified SNOMED: 74629695 Qualifiers: Qualified Codes: N39.0 - Urinary tract infection, site not specified (4) MELVIN (obstructive sleep apnea) ICD Codes: G47.33 - Obstructive sleep apnea (adult) (pediatric) SNOMED: 81234449 (5) HTN (hypertension) ICD Codes: I10 - Essential (primary) hypertension SNOMED: 89930263 (6) Obese ICD Codes: E66.9 - Obesity, unspecified SNOMED: 330089135, 688498544 (7) Sepsis ICD Codes: A41.9 - Sepsis, unspecified organism SNOMED: 91924901 Status: stable, progressing Assessment/Plan o2 pulm tx abx ot pt diet dc if clear Subjective Constitutional: Reports: weakness Allergies: Coded Allergies: HALOPERIDOL (Verified Allergy, Unknown, 06/16/17) All Systems: reviewed and negative except above Subjective sleepy o2nc Objective Last 24 Hour Vital Signs Date Time Temp Pulse Resp B/P (MAP) Pulse Ox O2 Delivery O2 Flow Rate FiO2 04/11/18 12:00 98.4 89 20 111/71 (84) 94 04/11/18 11:42 100 04/11/18 09:56 83 18 Nasal Cannula 2.0 28 04/11/18 09:56 96 Nasal Cannula 2.0 28 04/11/18 09:56 Nasal Cannula 2.0 28 04/11/18 09:00 Nasal Cannula 2.0 04/11/18 07:55 98.6 105 20 119/65 (83) 95 04/11/18 07:42 98 04/11/18 05:30 85 110/66 04/11/18 04:00 85 04/11/18 04:00 97.8 89 18 110/66 (81) 96 04/11/18 00:00 93 04/11/18 00:00 98.1 83 20 119/69 (86) 94 04/10/18 21:00 81 105/77 04/10/18 21:00 Nasal Cannula 2.0 04/10/18 20:17 81 18 Nasal Cannula 2.0 28 04/10/18 20:17 Nasal Cannula 2.0 28 04/10/18 20:17 95 Nasal Cannula 2.0 04/10/18 20:00 124 04/10/18 20:00 98.0 110 20 105/77 (86) 94 04/10/18 16:45 112 04/10/18 16:00 97.9 125 20 126/73 (90) 93 04/10/18 14:04 99 108/67 Intake and Output 04/10/18 04/11/18 19:00 07:00 Intake Total 390 ml Output Total 300 ml Balance 90 ml Intake Oral 390 ml Output Urine Total 300 ml # Voids 1 5 # Bowel Movements 11 1 Laboratory Tests 04/11/18 10:05: White Blood Count 7.0, Red Blood Count 4.19L, Hemoglobin 13.3, Hematocrit 38.8, Mean Corpuscular Volume 93, Mean Corpuscular Hemoglobin 31.9H, Mean Corpuscular Hemoglobin Concent 34.3, Red Cell Distribution Width 12.2, Platelet Count 150, Mean Platelet Volume 7.1, Neutrophils (%) (Auto) 75.9H, Lymphocytes (%) (Auto) 12.0L, Monocytes (%) (Auto) 10.6H, Eosinophils (%) (Auto) 0.7, Basophils (%) ( Auto) 0.8, Sodium Level 140, Potassium Level 3.9, Chloride Level 102, Carbon Dioxide Level 34H, Anion Gap 4L, Blood Urea Nitrogen 12, Creatinine 0.5L, Estimat Glomerular Filtration Rate , Glucose Level 111H, Calcium Level 8.6 Height (Feet): 5 Height (Inches): 4.00 Weight (Pounds): 255 General Appearance: lethargic EENT: normal ENT inspection Neck: normal alignment Cardiovascular: normal peripheral pulses, normal rate, regular rhythm Respiratory/Chest: chest wall non-tender, lungs clear, normal breath sounds Abdomen: normal bowel sounds, non tender, soft Extremities: normal inspection Edema: no edema noted Arm (L), no edema noted Arm (R), no edema noted Leg (L), no edema noted Leg (R), no edema noted Pedal (L), no edema noted Pedal (R), no edema noted Generalized Neurologic: motor weakness Skin: normal pigmentation, warm/dry Bill Lane DO Apr 11, 2018 13:36
[2018-04-11 16:00] VITALS: BP 126/62
--- NOTE | 2018-04-11 18:16 | Cardiology Progress Note ---
Assessment/Plan Assessment/Plan 1. Most likely multifocal atrial tachycardia, secondary to underlying chronic obstructive pulmonary disease. 2D echocardiography shows normal LV systolic function. Clear from the cardiology standpoint for DC. 2. History of chronic obstructive pulmonary disease with possible left pleural effusion. 3. Suspect obesity hypoventilation syndrome. Subjective Subjective Sinus bradycardia at 89. Objective Last 24 Hour Vital Signs Date Time Temp Pulse Resp B/P (MAP) Pulse Ox O2 Delivery O2 Flow Rate FiO2 04/11/18 16:00 98.2 101 20 126/62 (83) 97 04/11/18 14:44 89 111/71 04/11/18 12:00 98.4 89 20 111/71 (84) 94 04/11/18 11:42 100 04/11/18 09:56 83 18 Nasal Cannula 2.0 28 04/11/18 09:56 96 Nasal Cannula 2.0 28 04/11/18 09:56 Nasal Cannula 2.0 28 04/11/18 09:00 Nasal Cannula 2.0 04/11/18 07:55 98.6 105 20 119/65 (83) 95 04/11/18 07:42 98 04/11/18 05:30 85 110/66 04/11/18 04:00 85 04/11/18 04:00 97.8 89 18 110/66 (81) 96 04/11/18 00:00 93 04/11/18 00:00 98.1 83 20 119/69 (86) 94 04/10/18 21:00 81 105/77 04/10/18 21:00 Nasal Cannula 2.0 04/10/18 20:17 81 18 Nasal Cannula 2.0 28 04/10/18 20:17 Nasal Cannula 2.0 28 04/10/18 20:17 95 Nasal Cannula 2.0 28 04/10/18 20:00 124 04/10/18 20:00 98.0 110 20 105/77 (86) 94 Intake and Output 04/10/18 04/11/18 18:59 06:59 Intake Total 390 ml Output Total 300 ml Balance 90 ml Intake Oral 390 ml Output Urine Total 300 ml # Voids 1 5 # Bowel Movements 11 1 2D Echo: LVEF 55%, Mold LVH, Mild LAE, RVSP 32 mmHg Laboratory Tests Test 04/11/18 10:05 White Blood Count 7.0 K/UL (4.8-10.8) Red Blood Count 4.19 M/UL (4.20-5.40) L Hemoglobin 13.3 G/DL (12.0-16.0) Hematocrit 38.8 % (37.0-47.0) Mean Corpuscular Volume 93 FL (80-99) Mean Corpuscular Hemoglobin 31.9 PG (27.0-31.0) H Mean Corpuscular Hemoglobin Concent 34.3 G/DL (32.0-36.0) Red Cell Distribution Width 12.2 % (11.6-14.8) Platelet Count 150 K/UL (150-450) Mean Platelet Volume 7.1 FL (6.5-10.1) Neutrophils (%) (Auto) 75.9 % (45.0-75.0) H Lymphocytes (%) (Auto) 12.0 % (20.0-45.0) L Monocytes (%) (Auto) 10.6 % (1.0-10.0) H Eosinophils (%) (Auto) 0.7 % (0.0-3.0) Basophils (%) (Auto) 0.8 % (0.0-2.0) Sodium Level 140 MMOL/L (136-145) Potassium Level 3.9 MMOL/L (3.5-5.1) Chloride Level 102 MMOL/L (98-107) Carbon Dioxide Level 34 MMOL/L (21-32) H Anion Gap 4 mmol/L (5-15) L Blood Urea Nitrogen 12 mg/dL (7-18) Creatinine 0.5 MG/DL (0.55-1.30) L Estimat Glomerular Filtration Rate mL/min (>60) Glucose Level 111 MG/DL (74-106) H Calcium Level 8.6 MG/DL (8.5-10.1) Microbiology Date/Time Source Procedure Growth Status 04/10/18 23:00 Sputum Gram Stain - Final Resulted 04/10/18 23:00 Sputum Sputum Culture Pending Resulted Objective HEENT: Atraumatic and normocephalic. Anicteric. Pupils are equal, round, and reactive to light and accommodation. Extraocular muscles intact. NECK: JVP cannot be assessed due to obesity and short neck. No carotid bruit. Carotid upstrokes 2+ bilaterally. CARDIOVASCULAR: Normal S1, S2. Regularly rhythm. A 2/6 mid systolic murmur at the left sternal border. LUNGS: Diminished breath sounds at both bases. ABDOMEN: Obese. Do not appreciate hepatosplenomegaly. Soft. Positive bowel sounds. EXTREMITIES: There is 1+ bilateral lower extremity edema. Jose Daniel Grajeda MD Apr 11, 2018 18:16
--- NOTE | 2018-04-11 20:45 | Progress Note ---
DATE: 04/11/2018 "NOTE: POOR AUDIO QUALITY" SUBJECTIVE: This is a 72-year-old female patient with sepsis, , and COPD. She has low energy and . MENTAL STATUS EXAMINATION: This is a 72-year-old female. Appearance is disheveled. Attitude, irritable. Affect is guarded . Orientation x2. Speech is low volume and slurred. Thought process, disorganized and illogical. Thought content, auditory hallucinations and paranoid delusions. Insight and judgment are poor. DIAGNOSIS: Schizoaffective disorder, bipolar type. PLAN: This clinician assessed this patient. . Filipe Yen M.D. DR: MELVI JOB#: [id number] CC:
--- NOTE | 2018-04-11 23:45 | Progress Note ---
DATE: 04/11/2018 NOTE: "VERY POOR AUDIO QUALITY" SUBJECTIVE: The patient is a female patient. She was admitted to the hospital. She has sepsis, COPD, confusion, disorganized thought process, and decline of cognition below her baseline. That is why her attending physician has requested daily psychiatric consultation. She does have some depression, confusion, mood lability, decline in cognition below her baseline. That is why, she does require daily psychiatric consultation. She has COPD, mood lability. That is why, her attending has requested daily psychiatric consultation due to her mood lability. MENTAL STATUS EXAMINATION: A 72-year-old female. Appearance is disheveled. Attitude, irritable and agitated. Affect, guarded and restricted. Intellect poor. Mood is depressed and anxious. Motor activity, psychomotor agitation. Attention span is poor. Orientation x2. Speech is pressured. Thought process, disorganized and illogical. Thought content, auditory hallucinations and paranoid delusions. Insight and judgment is poor. DIAGNOSIS: Schizoaffective, bipolar type. PLAN: I will treat her with Risperdal 2 mg daily, Depakote 500 mg q.12 hours, Ativan 1 mg q.6 hours p.r.n. anxiety and agitation. Provided her with 20 minutes of supportive psychotherapy. Encouraged to interact appropriately with staff and other patients. Twenty minutes of cognitive behavioral therapy provided to help her identify automatic negative thoughts and help her to convert those negative thoughts to more positive thinking to reduce depression and anxiety. Filipe Yen M.D. DR: MYRON JOB#: [id number] CC:
--- NOTE | 2018-04-12 12:25 | Discharge Summary ---
Discharge Summary Discharge Summary _ DATE OF ADMISSION: 04/05/2018 DATE OF DISCHARGE: 04/11/2018 REASON FOR ADMISSION: 72 years old female with past medical history of hypertension, COPD, schizophrenia, peripheral neuropathy, history of smoking, was sent for evaluation from the care home facility due to elevated white blood count and high TSH. Patient reported some shortness of breath and chronic back pain, 8 out of 10 , constant with intermittent relief. She denied dysuria . Upon evaluation vital signs were stable . Patient was placed on supplemental 3L of oxygen via nasal cannula, saturating 92% . Patient initially was hypotensive and required fluid bolus , blood pressure responded to fluid challenge. Troponin negative .EKG revealed sinus tachycardia with frequent premature atrial complexes. Chest x-ray revealed left effusion , possible infiltrate laboratory . Laboratory workup revealed elevated white blood count 15.4 , stable hemoglobin and hematocrit . Bicarbonate 37. TSH within normal limits 2.941. Urinalysis with evidence of pyuria. Patient admitted with diagnoses of COPD exacerbation, probable sepsis, leukocytosis, likely aspiration pneumonia , tachycardia. CONSULTANTS: unemployment insurance hearing officer Dr. Grajeda pulmonary Dr. Gan ID specialist Dr. Bernstein psychiatrist Dr. Yen Blueprint Tracer Dr. Valladares [facility] COURSE: Patient admitted to telemetry floor. Supplemental oxygen provided as needed to keep pulse oximetry above 92%. Pulmonary toilet provided around the clock and as needed. Patient was on empiric antibiotic. Blood culture were negative Urine culture with pseudomonas MDR, colony count 10-20 , likely colonizer as per infectious disease specialist. Sputum culture was negative. Patient was on empiric antibiotic for pneumonia. Antitussive provided as needed. Patient was followed up with the chest x-ray. Bedside swallow evaluation revealed worsening oropharyngeal dysphagia. Diet started as per speech therapist recommendations with strict aspiration/ reflux precautions with one-to-one supervision during feeding. Recommended video swallow evaluation, which could be done as outpatient. Blood pressure was managed with Cardizem, which helped with control of heart rate is well. Tachycardia resolved. Per unemployment insurance hearing officer patient probably have multifocal atrial tachycardia, secondary to underlying COPD. Heart rate and telemetry strips were closely monitored. Echocardiogram revealed preserved ejection fraction. Book Jogger cleared patient for discharge. DVT prophylaxis provided. Renal parameters and electrolytes were closely monitored. Nephrotoxins were avoided. Electrolytes, particularly potassium , replaced. Infectious disease specialist closely followed . Patient completed 5 days of Levaquin. The infectious disease specialist recommended to monitor patient off antibiotics and observe closely; no fever, no leukocytosis. Blueprint Tracer followed patient for hypothyroidism. Since repeated TSH was within normal limits, same dose of levothyroxine was continued . Recommended to repeat TSH and free T4 in 4 weeks. Psychiatrist closely followed and diagnosed patient with schizoaffective disorder bipolar type. Psychiatric medication regimen was optimized. Supportive psychotherapy provided. Patient clinically improved and was ready for discharge to care home facility for continuation of care Patient was working with physical and occupational therapists. Fall precautions maintained. Outpatient sleep study was recommended. FINAL DIAGNOSES: Sepsis Aspiration pneumonia COPD with exacerbation Tachycardia , probably multifocal atrial tachycardia Obstructive sleep apnea versus obesity hypoventilation syndrome Hypertension Obesity Schizophrenia bipolar type DISCHARGE MEDICATIONS: See Medication Reconciliation list. DISCHARGE INSTRUCTIONS: Patient was discharged to the care home facility. Follow up with medical doctor at the facility. Sharon Gimenez NP Apr 12, 2018 12:25
--- NOTE | 2018-04-12 13:29 | Cardiology Report ---
APPROVED REPORT EXAM: Two-dimensional and M-mode echocardiogram with Doppler and color Doppler. INDICATION PALPITATION M-Mode DIMENSIONS IVSd2.0 (0.7-1.1cm)Left Atrium (MM)5.5 (1.6-4.0cm) LVDd5.9 (3.5-5.6cm)Aortic Root3.4 (2.0-3.7cm) PWd2.1 (0.7-1.1cm)Aortic Cusp Exc.1.5 (1.5-2.0cm) IVSs1.9 cm LVDs4.2 (2.5-4.0cm) PWs2.4 cm Normal left ventricular chamber size, systolic function and wall motion. Study quality precludes accurate assessment of regional wall motion. Left ventricular ejection fraction estimated to be 55-60 %. Mild to moderate left ventricular hypertrophy by 2-D. No evidence of pericardial effusion. Mild left atrial enlargement . Right cardiac chamber sizes not well visualized . Heavily Focal aortic valve sclerosis with adequate cusp excursion. Mildly Thickened mitral valve leaflets with normal excursion. Mitral annulus and aortic root calcification. Normal pulmonic valve structure. tricuspid valve structure not well visualized . IVC dilated at 2.5 cm and non- collapsing with respiration ,suggestive to increase RA pressure . A color flow and spectral Doppler study was performed and revealed: No aortic insufficiency. Mild mitral regurgitation. Left ventricular diastolic function can not determined due to arrythmia . Tricuspid systolic velocities suggests peak right ventricular systolic pressure of 32 mmHg,
== END 2018-04-11 17:35 | DRG 871 ==
LOC: EDBD 16:39 → EMR 17:22 → 2E 17:23 → EDBEDREQSVC 17:29 → EDBEDREQ 17:30 → 2E 04-06 07:17
DX: A41.9 Sepsis, unspecified organism (principal); J69.0 Pneumonitis due to inhalation of food and vomit; J44.1 Chronic obstructive pulmonary disease with (acute) exacerbation; I47.1 Supraventricular tachycardia; N39.0 Urinary tract infection, site not specified; E66.2 Morbid (severe) obesity with alveolar hypoventilation; Z68.41 Body mass index [BMI] 40.0-44.9, adult; G47.33 Obstructive sleep apnea (adult) (pediatric); I11.0 Hypertensive heart disease with heart failure; Z88.8 Allergy status to other drugs, medicaments and biological substances; E03.9 Hypothyroidism, unspecified; Z87.891 Personal history of nicotine dependence; G62.9 Polyneuropathy, unspecified; I25.10 Atherosclerotic heart disease of native coronary artery without angina pectoris; K21.9 Gastro-esophageal reflux disease without esophagitis; I25.2 Old myocardial infarction; F20.9 Schizophrenia, unspecified; G89.29 Other chronic pain; M54.5 Low back pain; F25.0 Schizoaffective disorder, bipolar type; R09.02 Hypoxemia
CPT/HCPCS: 36415; 71045; 80048; 80053; 81001; 81003; 82248; 82550; 82962; 83605; 83735; 83880; 84100; 84439; 84443; 84481; 84484; 85025; 85610; 85730; 87040; 87070; 87081; 87086; 87181; 87205; 93005; 93306; 94640; 94664; 94760; 96374; 96375; 97803; 99285; J2405; J8499

== ENCOUNTER 2019-07-15 20:41 | Inpatient (IN) | payer MEDICARE, OTHER ==
[~2019-07-15] VITALS: Ht 165.1 cm; Wt 140.2 kg
[~2019-07-15 20:41] MED LIST changes: +BENADRYL25 MG ORAL; +CEFAZOLIN1 GM/50 ML IVPB; +COLACE100 MG ORAL; +DILTIAZEM HCL60 MG PO; +GABAPENTIN300 MG ORAL; +LIPITOR20 MG ORAL; +LOVENOX10 M4 SUBQ; +MILK OF MA400 MG/51 ORAL; +MIRALAX17 G2 ORAL; +NAMENDA5 MG ORAL; +NITRO0.4 SL; +PREDNISONE20 MG ORAL; +RESTORIL30 MG ORAL; +SERTRALINE HCL50 MG ORAL; +SYNTHROID125 MCG ORAL
[2019-07-15 20:50] VITALS: BP 110/76
--- NOTE | 2019-07-15 20:50 | NUR ---
ED Nurse Note: Pt brought in by ambulance from [facility] c/o 03/23 sharp lwoer back pain. Pt stated she was at for same reason and was discharged around 5 days ago. Pt denies fall or injury. Patient ao4 vss. attached to monitor. bed locked at lowest position; side rails raised. will continue to monitor.
--- NOTE | 2019-07-15 20:56 | Emergency Room Report ---
History of Present Illness General Chief Complaint: Back Pain-No Injury Source: Patient Present Illness HPI 73 years old female with past medical history of COPD, hypertension, schizophrenia, peripheral neuropathy, history of smoking, history of abdominal cellulitis, morbid obesity, presents with right upper back pain, patient was coughing over the past few days and 5 days ago she felt a pop and ever since then she is been having sharp back pain aggravated with movement alleviated with rest severity is moderate, intermittent, patient denies any perianal numbness no focal weakness, no bladder retention/incontinence patient presents for evaluation Allergies: Coded Allergies: HALOPERIDOL (Verified Allergy, Unknown, 06/16/17) Patient History Past Medical History: see triage record Last Menstrual Period: na Reviewed Nursing Documentation: PMH: Agreed; PSxH: Agreed Nursing Documentation-PMH Hx Cardiac Problems: Yes Hx Hypertension: Yes Hx COPD: Yes Hx Cancer: No Hx Gastrointestinal Problems: Yes Hx Neurological Problems: No Hx Peripheral Neuropathy: Yes Hx Neurologic Surgery: No Review of Systems All Other Systems: negative except mentioned in HPI Physical Exam Vital Signs Date Time Temp Pulse Resp B/P (MAP) Pulse Ox O2 Delivery O2 Flow Rate FiO2 07/15/19 20:44 97.5 86 8 110/76 (87) 96 Nasal Cannula 4.0 Sp02 EP Interpretation: reviewed, normal General Appearance: well appearing, alert, moderate distress, obese Head: normocephalic, atraumatic Eyes: bilateral eye PERRL, bilateral eye EOMI ENT: uvula midline, moist mucus membranes Neck: supple, thyroid normal, supple/symm/no masses Respiratory: lungs clear, no respiratory distress, no retraction, no accessory muscle use Cardiovascular #1: normal peripheral pulses, regular rate, rhythm, no edema, no gallop, no murmur Gastrointestinal: non tender, soft, no guarding, no rebound Musculoskeletal: other - Tenderness to palpation right upper back, laterally, no midline tenderness no step-offs Neurologic: alert, oriented x3 Psychiatric: mood/affect normal Skin: no rash, warm/dry Medical Decision Making Diagnostic Impression: Primary Impression: Back pain Qualified Codes: M54.6 - Pain in thoracic spine ER Course 73-year-old female presents with right upper back pain, intractable pain, and cough, will admit patient for pain control, intractable back pain Patient admitted to Dr. Lane for pain control Laboratory Tests Test 07/15/19 21:15 White Blood Count 14.0 K/UL (4.8-10.8) H Red Blood Count 4.76 M/UL (4.20-5.40) Hemoglobin 13.7 G/DL (12.0-16.0) Hematocrit 44.1 % (37.0-47.0) Mean Corpuscular Volume 93 FL (80-99) Mean Corpuscular Hemoglobin 28.7 PG (27.0-31.0) Mean Corpuscular Hemoglobin Concent 31.0 G/DL (32.0-36.0) L Red Cell Distribution Width 14.0 % (11.6-14.8) Platelet Count 174 K/UL (150-450) Mean Platelet Volume 6.8 FL (6.5-10.1) Neutrophils (%) (Auto) 81.1 % (45.0-75.0) H Lymphocytes (%) (Auto) 9.9 % (20.0-45.0) L Monocytes (%) (Auto) 7.9 % (1.0-10.0) Eosinophils (%) (Auto) 0.8 % (0.0-3.0) Basophils (%) (Auto) 0.3 % (0.0-2.0) Sodium Level 137 MMOL/L (136-145) Potassium Level 4.3 MMOL/L (3.5-5.1) Chloride Level 98 MMOL/L (98-107) Carbon Dioxide Level 37 MMOL/L (21-32) H Anion Gap 2 mmol/L (5-15) L Blood Urea Nitrogen 14 mg/dL (7-18) Creatinine 0.7 MG/DL (0.55-1.30) Estimate Glomerular Filtration Rate mL/min (>60) Glucose Level 153 MG/DL (74-106) H Calcium Level 8.4 MG/DL (8.5-10.1) L Phosphorus Level 3.8 MG/DL (2.5-4.9) Magnesium Level 2.1 MG/DL (1.8-2.4) Total Bilirubin 0.8 MG/DL (0.2-1.0) Aspartate Amino Transferase (AST) 25 U/L (15-37) Alanine Aminotransferase (ALT) 40 U/L (12-78) Alkaline Phosphatase 65 U/L (46-116) Pro-B-Type Natriuretic Peptide 385 pg/mL (0-125) H Total Protein 5.9 G/DL (6.4-8.2) L Albumin 2.8 G/DL (3.4-5.0) L Globulin 3.1 g/dL Albumin/Globulin Ratio 0.9 (1.0-2.7) L Lipase 101 U/L (73-393) EKG Diagnostic Results EKG Time: 21:16 EP Interpretation: Sinus tachycardia, rate 129, QTc 495, no acute ST elevations , normal axis Rhythm Strip Diag. Results Rhythm Strip Time: 22:41 EP Interpretation: yes Rate: 108 Rhythm: other - Sinus tachycardia Chest X-Ray Diagnostic Results Chest X-Ray Diagnostic Results : Chest X-Ray Ordered: Yes # of Views/Limited/Complete: 1 View Indication: Other - Cough EP Interpretation: Yes Interpretation: no consolidation, no effusion, no pneumothorax, no acute cardiopulmonary disease Impression: No acute disease Electronically Signed by: Timmy Moreno MD Last Vital Signs Date Time Temp Pulse Resp B/P (MAP) Pulse Ox O2 Delivery O2 Flow Rate FiO2 07/15/19 20:44 97.5 86 8 110/76 (87) 96 Nasal Cannula 4.0 Disposition: ADMITTED INPATIENT Condition: Stable Timmy Moreno MD Jul 15, 2019 20:56
[2019-07-15] MEDS ORDERED: Morphine Sulfate 4mg/ml Inj (IV USE ONLY) IVP ONE ×2 (21:00→21:45)
--- NOTE | 2019-07-15 21:00 | NUR ---
ED Nurse Note: UNABLE TO COLLECT URINE; PATIENT STATES SHE WILL PROVIDE URINE WHEN ABLE. OFFERED STRAIGHT CATH; PT REFUSED
--- NOTE | 2019-07-15 21:15 | NUR ---
ED Nurse Note: iv access established. blood collected; sent down to lab.
[2019-07-15] MEDS ORDERED: Ketorolac 30mg Inj IV ONE (21:45)
[2019-07-15] MEDS ORDERED: DiphenhydrAMINE 50mg/ml Inj IVP ONE (21:45)
--- NOTE | 2019-07-15 22:00 | NUR ---
ED Nurse Note: medicated patient; tolerated well. will continue to monitor.
[2019-07-15 22:08] LABS: ANION GAP 2 mmol/L (5-15); BLOOD UREA NITROGEN 14 mg/dL (7-18); CALCIUM 8.4 MG/DL (8.5-10.1); CARBON DIOXIDE 37 MMOL/L (21-32); CHLORIDE 98 MMOL/L (98-107); CREATININE 0.7 MG/DL (0.55-1.30); POTASSIUM 4.3 MMOL/L (3.5-5.1); SODIUM 137 MMOL/L (136-145)
[2019-07-15] MEDS ORDERED: LORazepam Inj 2mg/ml 1ml IV ONE (22:15)
[2019-07-15 22:18] LABS: ALANINE AMINOTRANSFERASE 40 U/L (12-78); ALBUMIN 2.8 G/DL (3.4-5.0); ALBUMIN/GLOBULIN RATIO 0.9 (1.0-2.7); ALKALINE PHOSPHATASE 65 U/L (46-116); ASPARTATE AMINO TRANSFERASE 25 U/L (15-37); BILIRUBIN,TOTAL 0.8 MG/DL (0.2-1.0); PHOSPHORUS 3.8 MG/DL (2.5-4.9)
--- NOTE | 2019-07-15 22:22 | Diagnostic Imaging Report ---
EXAM: XR Chest, 1 View CLINICAL HISTORY: COUGH TECHNIQUE: Frontal view of the chest. COMPARISON: 06/24/19 FINDINGS: Lungs: Hypoventilatory lungs. Prominence of the central bronchovascular structures. Pleural space: No significant abnormality. No pneumothorax. Heart: Stable cardiomediastinal silhouette. Mediastinum: See above. Bones/joints: No acute osseous abnormality. Tubes, lines and devices: Telemetry leads overlie the patient. IMPRESSION: Limited hypoventilatory exam. Prominence of the central bronchovascular structures may be in part due to low lung volumes.
[2019-07-15 22:29] LABS: BASOPHILS % (AUTO) 0.3 % (0.0-2.0); EOSINOPHILS % (AUTO) 0.8 % (0.0-3.0); HEMATOCRIT 44.1 % (37.0-47.0); HEMOGLOBIN 13.7 G/DL (12.0-16.0); LYMPHOCYTES % (AUTO) 9.9 % (20.0-45.0); MEAN CORPUSCULAR VOLUME 93 FL (80-99); MONOCYTES % (AUTO) 7.9 % (1.0-10.0); NEUTROPHILS % (AUTO) 81.1 % (45.0-75.0); PLATELET COUNT 174 K/UL (150-450); RED BLOOD COUNT 4.76 M/UL (4.20-5.40)
[2019-07-15 23:00] VITALS: BP 118/80
--- NOTE | 2019-07-15 23:25 | NUR ---
TRANSFER TO FLOOR: Patient transferred to [place] [id number] as ordered, per SUMA CANO. Report given to GARY MANCUSO. PATIENT STABLE FOR TRANSFER. TRANSFERRED TO UNIT VIA GURNEY WITH [facility]. PATIENT SENT WITH BELONGINGS LIST AND ADMISSION PACKET
--- NOTE | 2019-07-15 23:35 | NUR ---
NURSE NOTES: Pt received from ER on oxygen, no c/o pain, a/o X 4, able to make needs known, bed bound, will get admitting orders from doctor, will collect urine, will continue to monitor. Addendum: 07/16/19 at 0147 by MERA YODER RN Vitals 98.5, 96HR, 25rr, 117/58, 94 O2
[2019-07-16] MEDS ORDERED: ASPIRIN81 M3 PO (00:37)
[2019-07-16] MEDS ORDERED: DILTIAZEM HCL30 MG PO (00:37)
[2019-07-16] MEDS ORDERED: SENNA8.6 M2 PO (00:37)
[2019-07-16] MEDS ORDERED: PANTOPRAZOLE SO40 MG ORAL (00:37)
[2019-07-16] MEDS ORDERED: NORCO 5-325 TA1 EACH ORAL (00:37)
[2019-07-16] MEDS ORDERED: BUDESONIDE0.5 MG/2 M IH (00:37)
[2019-07-16] MEDS ORDERED: ACETYLCYST100 MG/1 M INH (00:37)
[2019-07-16] MEDS ORDERED: GUAIFENESI100 MG/5 M ORAL (00:37)
[2019-07-16] MEDS ORDERED: AMBIEN5 MG ORAL (00:51)
[2019-07-16] MEDS ORDERED: Ketorolac 30mg Inj IV PRN (02:15)
[2019-07-16] MEDS ORDERED: Morphine Sulfate 4mg/ml Inj (IV USE ONLY) IVP PRN (02:15)
[2019-07-16 04:00] VITALS: BP 137/69
[2019-07-16] MEDS ORDERED: guaiFENesin 100mg/5ml Liq ud ORAL PRN (07:00)
[2019-07-16] MEDS ORDERED: Zolpidem 5mg tab ORAL PRN (07:00)
--- NOTE | 2019-07-16 07:03 | NUR ---
NURSE NOTES: Per Dr Lane, continue all meds and orders and diet from SNF, [facility] bmp in am, call Elvia for orders.
--- NOTE | 2019-07-16 07:15 | NUR ---
HAND-OFF: Report given to JAMEE Jasmine.
--- NOTE | 2019-07-16 07:40 | NUR ---
NURSE NOTES: received patient in bed, asleep, no sign of respiratory distress in NC 2L/min. R upper breast area saline locked IV access. Bed locked at the lowest position possible, call light within easy reach, siderails up x3. Will continue to monitor patient and follow up with the plan of care.
[2019-07-16 08:00] VITALS: BP 100/57
[2019-07-16] MEDS: Docusate 100mg cap ORAL SCH ×2 (08:29→18:00)
[2019-07-16] MEDS: Memantine 5 MG TAB ORAL SCH ×2 (08:30→18:00)
[2019-07-16] MEDS: Enoxaparin 40mg Inj SUBQ SCH ×2 (08:30→20:25)
[2019-07-16] MEDS: Aspirin Baby 81mg ORAL SCH (08:30)
[2019-07-16] MEDS: Albuterol/Ipratropium 3ml neb HHN PRN ×2 (08:34→22:46)
[2019-07-16] MEDS: Sertraline 50mg tab ORAL SCH (08:51)
[2019-07-16] MEDS: Budesonide HHN 0.25mg/2ml ud HHN SCH ×2 (09:05→22:29)
[2019-07-16 09:26] LABS: BASOPHILS % (AUTO) 0.8 % (0.0-2.0); HEMATOCRIT 38.9 % (37.0-47.0); HEMOGLOBIN 13.1 G/DL (12.0-16.0); MEAN CORPUSCULAR VOLUME 89 FL (80-99); MONOCYTES % (AUTO) 6.8 % (1.0-10.0); NEUTROPHILS % (AUTO) 80.4 % (45.0-75.0); PLATELET COUNT 170 K/UL (150-450); RED BLOOD COUNT 4.38 M/UL (4.20-5.40)
[2019-07-16 10:01] LABS: ANION GAP 1 mmol/L (5-15); BLOOD UREA NITROGEN 12 mg/dL (7-18); CALCIUM 8.3 MG/DL (8.5-10.1); CARBON DIOXIDE 38 MMOL/L (21-32); CHLORIDE 98 MMOL/L (98-107); CREATININE 0.6 MG/DL (0.55-1.30); POTASSIUM 4.2 MMOL/L (3.5-5.1); SODIUM 137 MMOL/L (136-145)
[2019-07-16 12:00] VITALS: BP 107/68
[2019-07-16] MEDS ORDERED: dilTIAZem HCl 30mg tab ORAL SCH (12:00)
[2019-07-16] MEDS: HYDROcodone/Acetamin 5/325 tab ORAL PRN ×2 (12:33→20:21)
[2019-07-16] MEDS: NovoLOG Insulin Flexpen SUBQ SCH ×3 (12:36→21:00)
--- NOTE | 2019-07-16 13:28 | Consultation ---
History of Present Illness General Date patient seen: Jul 16, 2019 Time patient seen: 01:00 - pm Chief Complaint: Back pain Referring physician: Domingo Reason for Consultation: Pain Management Present Illness HPI REVIEW OF SYSTEMS: Denies rash, fever, chills, sweating, dizziness, drowsiness, blurred vision, sore throat, or change in weight. No nausea, vomiting, diarrhea, or blood in the stool or urine. No bowel or bladder incontinence. No dysuria. She is complaining of low back pain. SUBJECTIVE: Patient is a known patient from previous admission and has been admitted under the care of Dr. Lane due to cough. She continues to c/o back pain and was started on norco 5/325mg Q6h PRN severe pain with minimal relief due to this we were consulted so patient has adequate pain control while here in the hospital. Allergies: Coded Allergies: HALOPERIDOL (Verified Allergy, Unknown, 06/16/17) Medication History Scheduled Acetylcysteine* (Acetylcysteine*), 400 MG INH Q8HR, (Reported) Aspirin (Aspirin), 81 MG PO DAILY, (Reported) Atorvastatin Calcium* (Lipitor*), 20 MG ORAL DAILY, (Reported) Budesonide (Budesonide), 0.5 MG IH Q12HR, (Reported) Cefazolin Sodium/Dextrose,Iso (Cefazolin 1 Gm-D5w Bag), 1 GM IVPB Q8HR, ( Reported) Diltiazem Hcl (Diltiazem Hcl), 30 MG PO Q6HR, (Reported) Docusate Sodium* (Colace*), 100 MG ORAL THREE TIMES A DAY, (Reported) Docusate Sodium* (Colace*), 100 MG ORAL TWICE A DAY, (Reported) Enoxaparin* (Lovenox*), 40 MG SUBQ EVERY 12 HOURS, (Reported) Gabapentin* (Gabapentin*), 300 MG ORAL THREE TIMES A DAY, (Reported) Heparin Sod (Porcine) (Heparin Sodium*), 5,000 UNITS SUBQ EVERY 12 HOURS, ( Reported) Ipratropium/Albuterol Sulfate (DuoNeb 0.5-3(2.5)mg/3ml), 3 ML HHN Q4HR, ( Reported) Lactulose (Lactulose*), 30 ML ORAL BID, (Reported) Levothyroxine Sodium* (Synthroid*), 125 MCG ORAL DAILY, (Reported) Magnesium Hydroxide* (Milk Of Magnesia*), 30 ML ORAL DAILY, (Reported) Memantine Hcl* (Namenda*), 5 MG ORAL TWICE A DAY, (Reported) Pantoprazole* (Pantoprazole*), 40 MG ORAL BEFORE BREAKFAST, (Reported) Polyethylene Glycol 3350* (Miralax*), 17 GM ORAL BEDTIME, (Reported) Prednisone* (Prednisone*), 20 MG ORAL DAILY, (Reported) Prednisone* (Prednisone*), 20 MG ORAL DAILY, (Reported) Sennosides (Senna), 8.6 MG PO QHS, (Reported) Sertraline Hcl* (Zoloft*), 50 MG ORAL DAILY, (Reported) Scheduled PRN Acetaminophen* (Acetaminophen 325MG Tablet*), 650 MG ORAL Q6H PRN for Mild Pain/ Temp > 100.5, (Reported) Diphenhydramine Hcl* (Benadryl*), 25 MG ORAL Q6H PRN for Itching, (Reported) Guaifenesin* (Guaifenesin*), 10 ML ORAL Q4H PRN for FOR COUGH, (Reported) Hydrocodone Bit/Acetaminophen 5-325* (Robinson 5-325*), 1 TAB ORAL Q6H PRN for Severe Pain (Pain Scale 7-10), (Reported) Ipratropium/Albuterol Sulfate (DuoNeb 0.5-3(2.5)mg/3ml), 3 ML HHN Q4HR PRN for shortness of breath, (Reported) Nitroglycerin 0.4MG table* (Nitroglycerin*), 0.4 MG SL .Q5MIN X 3 DOSES PRN for CHEST PAIN, (Reported) Temazepam (Restoril*), 30 MG ORAL BEDTIME PRN for Insomnia, (Reported) Zolpidem Tartrate* (Ambien*), 5 MG ORAL BEDTIME PRN for Insomnia, (Reported) Patient History Healthcare decision maker Resuscitation status Full Code Advanced Directive on File Past Medical/Surgical History Past Medical/Surgical History: (1) Peripheral edema (2) Chest pain (3) CHF (congestive heart failure) (4) Obese (5) Hypothyroidism (6) MELVIN (obstructive sleep apnea) (7) Cellulitis (8) COPD (chronic obstructive pulmonary disease) Physical Exam Physical Exam Narrative GENERAL: Alert, awake, oriented x3. LUNGS: Decreased breath sounds bilaterally. HEART: Regular. ABDOMEN: Obese. EXTREMITIES: No cyanosis. No clubbing. edema noted. NEURO: Weakness noted b/L LE Last 24 Hour Vital Signs Date Time Temp Pulse Resp B/P (MAP) Pulse Ox O2 Delivery O2 Flow Rate FiO2 07/16/19 12:41 96 07/16/19 12:00 98.8 95 22 107/68 (81) 92 07/16/19 09:20 86 20 96 Nasal Cannula 2.0 88 20 95 07/16/19 08:44 86 20 96 Nasal Cannula 2.0 88 22 92 07/16/19 08:30 Nasal Cannula 2.0 07/16/19 08:00 98.8 92 22 100/57 (71) 92 07/16/19 04:00 98.5 85 24 137/69 (91) 94 07/16/19 00:14 Nasal Cannula 2.0 07/15/19 23:25 97.5 88 18 118/80 96 Nasal Cannula 4.0 07/15/19 23:00 97.5 88 18 118/80 96 Nasal Cannula 4.0 07/15/19 22:37 97.5 07/15/19 22:37 97.5 07/15/19 21:52 97.5 07/15/19 20:50 97.5 86 18 110/76 96 Room Air 07/15/19 20:44 97.5 86 8 110/76 (87) 96 Nasal Cannula 4.0 Intake and Output 07/15/19 07/16/19 19:00 07:00 Intake Total 240 ml Balance 240 ml Intake Oral 240 ml # Bowel Movements 1 Laboratory Tests Test 07/15/19 21:15 07/16/19 09:05 White Blood Count 14.0 K/UL (4.8-10.8) H 12.0 K/UL (4.8-10.8) H Red Blood Count 4.76 M/UL (4.20-5.40) 4.38 M/UL (4.20-5.40) Hemoglobin 13.7 G/DL (12.0-16.0) 13.1 G/DL (12.0-16.0) Hematocrit 44.1 % (37.0-47.0) 38.9 % (37.0-47.0) Mean Corpuscular Volume 93 FL (80-99) 89 FL (80-99) Mean Corpuscular Hemoglobin 28.7 PG (27.0-31.0) 29.9 PG (27.0-31.0) Mean Corpuscular Hemoglobin Concent 31.0 G/DL (32.0-36.0) L 33.6 G/DL (32.0-36.0) Red Cell Distribution Width 14.0 % (11.6-14.8) 13.0 % (11.6-14.8) Platelet Count 174 K/UL (150-450) 170 K/UL (150-450) Mean Platelet Volume 6.8 FL (6.5-10.1) 5.5 FL (6.5-10.1) L Neutrophils (%) (Auto) 81.1 % (45.0-75.0) H 80.4 % (45.0-75.0) H Lymphocytes (%) (Auto) 9.9 % (20.0-45.0) L 11.0 % (20.0-45.0) L Monocytes (%) (Auto) 7.9 % (1.0-10.0) 6.8 % (1.0-10.0) Eosinophils (%) (Auto) 0.8 % (0.0-3.0) 1.0 % (0.0-3.0) Basophils (%) (Auto) 0.3 % (0.0-2.0) 0.8 % (0.0-2.0) Sodium Level 137 MMOL/L (136-145) 137 MMOL/L (136-145) Potassium Level 4.3 MMOL/L (3.5-5.1) 4.2 MMOL/L (3.5-5.1) Chloride Level 98 MMOL/L (98-107) 98 MMOL/L (98-107) Carbon Dioxide Level 37 MMOL/L (21-32) H 38 MMOL/L (21-32) H Anion Gap 2 mmol/L (5-15) L 1 mmol/L (5-15) L Blood Urea Nitrogen 14 mg/dL (7-18) 12 mg/dL (7-18) Creatinine 0.7 MG/DL (0.55-1.30) 0.6 MG/DL (0.55-1.30) Estimat Glomerular Filtration Rate mL/min (>60) mL/min (>60) Glucose Level 153 MG/DL (74-106) H 130 MG/DL (74-106) H Calcium Level 8.4 MG/DL (8.5-10.1) L 8.3 MG/DL (8.5-10.1) L Phosphorus Level 3.8 MG/DL (2.5-4.9) Magnesium Level 2.1 MG/DL (1.8-2.4) Total Bilirubin 0.8 MG/DL (0.2-1.0) Aspartate Amino Transf (AST/SGOT) 25 U/L (15-37) Alanine Aminotransferase (ALT/SGPT) 40 U/L (12-78) Alkaline Phosphatase 65 U/L (46-116) Pro-B-Type Natriuretic Peptide 385 pg/mL (0-125) H Total Protein 5.9 G/DL (6.4-8.2) L Albumin 2.8 G/DL (3.4-5.0) L Globulin 3.1 g/dL Albumin/Globulin Ratio 0.9 (1.0-2.7) L Lipase 101 U/L (73-393) Microbiology Date/Time Source Procedure Growth Status 07/15/19 23:30 Rectum Received Height (Feet): 5 Height (Inches): 5.00 Weight (Pounds): 400 Medications Current Medications Medications (Trade) Dose Ordered Sig/Marleni Route PRN Reason Start Time Stop Time Status Last Admin Dose Admin Acetaminophen (Tylenol) 650 mg Q6H PRN ORAL Mild Pain/Temp > 100.5 07/16/19 07:00 08/15/19 06:59 Acetaminophen/ Hydrocodone Bitart (Robinson 5/325) 1 tab Q6H PRN ORAL Severe Pain (Pain Scale 7-10) 07/16/19 07:00 07/23/19 06:59 07/16/19 12:33 Acetylcysteine (Mucomyst) 400 mg Q8HRT INH 07/16/19 07:30 08/15/19 07:29 Albuterol/ Ipratropium (Albuterol/ Ipratropium) 3 ml Q4HR PRN HHN shortness of breath 07/16/19 07:00 07/21/19 06:59 07/16/19 08:34 Aspirin (ASA) 81 mg DAILY ORAL 07/16/19 09:00 08/15/19 08:59 07/16/19 08:30 Budesonide (Pulmicort) 0.5 mg Q12HRT HHN 07/16/19 10:00 08/15/19 09:59 07/16/19 09:05 Dextrose (Dextrose 50%) 25 ml Q30M PRN IV Hypoglycemia 07/16/19 07:30 08/15/19 07:29 Dextrose (Dextrose 50%) 50 ml Q30M PRN IV Hypoglycemia 07/16/19 07:30 08/15/19 07:29 Diltiazem HCl (Cardizem) 30 mg Q6HR ORAL 07/16/19 12:00 08/15/19 11:59 Docusate Sodium (Colace) 100 mg TWICE A DAY ORAL 07/16/19 09:00 08/15/19 08:59 07/16/19 08:29 Enoxaparin Sodium (Lovenox) 40 mg EVERY 12 HOURS SUBQ 07/16/19 09:00 08/15/19 08:59 07/16/19 08:30 Gabapentin (Neurontin) 300 mg THREE TIMES A DAY ORAL 07/16/19 09:00 08/15/19 08:59 07/16/19 12:33 Guaifenesin (Robitussin) 200 mg Q4H PRN ORAL FOR COUGH 07/16/19 07:00 08/15/19 06:59 Insulin Aspart (NovoLOG) BEFORE MEALS AND HS SUBQ 07/16/19 11:30 08/15/19 11:29 07/16/19 12:36 Memantine (Namenda) 5 mg BID ORAL 07/16/19 09:00 08/15/19 08:59 07/16/19 08:30 Ondansetron HCl (Zofran) 4 mg PRN PRN IVP Nausea & Vomiting 07/16/19 02:15 Pantoprazole (Protonix) 40 mg BEFORE BREAKFAST ORAL 07/17/19 06:30 08/16/19 06:29 Sennosides (Senokot) 8.6 mg QHS ORAL 07/16/19 21:00 08/15/19 20:59 Sertraline HCl (Zoloft) 50 mg DAILY ORAL 07/16/19 09:00 08/15/19 08:59 07/16/19 08:51 Zolpidem Tartrate (Ambien) 5 mg BEDTIME PRN ORAL Insomnia 07/16/19 07:00 07/23/19 06:59 Assessment/Plan Assessment/Plan: (1) Morbid obesity (2) Lumbago (3) Peripheral neuropathy (4) COPD (5) CHF Patient to be continued on Robinson. D/w Dr. Hicks and he concurred. David Odom Jul 16, 2019 13:28
[2019-07-16] MEDS: Morphine Sulfate 2mg/ml Inj(IV/IM USE ONLY) IVP PRN (14:08)
--- NOTE | 2019-07-16 15:15 | History and Physical Report ---
DATE OF ADMISSION: 07/15/2019 DATE AND TIME SEEN: 07/16/2019 at 8 a.m. CONSULTANTS: 1. Fartun Gan M.D. 2. Beni Hicks M.D. 3. Dr. Nash. 4. Brian Foley M.D. 5. Filipe Yen M.D. CHIEF COMPLAINT: Intractable back pain. HISTORY OF PRESENT ILLNESS: The patient is a 73-year-old female from [facility], who presents with two-day increased back pain, became unbearable, came to [place] and diagnosed with above, admitted to medical floor for further treatment. Currently, O2 NC, slight short of breath in bed, complaining of back pain, 01/21. No complaint. REVIEW OF SYSTEMS: No chest pain. Slight short of breath. No nausea, vomiting, or diarrhea. PAST MEDICAL HISTORY: Diabetes, hypertension, obesity, back pain, peripheral edema, CHF, COPD, hypothyroid, and arthritis. PAST SURGICAL HISTORY: Gallbladder, appendectomy, and hysterectomy. ALLERGIES: Haldol. MEDICATIONS: Include pantoprazole, potassium, insulin, aspirin, enoxaparin, gabapentin, memantine, sertraline, Tylenol, hydrocodone, albuterol, zolpidem, ketorolac, and lorazepam. SOCIAL HISTORY: No smoking. No alcohol. No intravenous drug use. FAMILY HISTORY: Noncontributory. PHYSICAL EXAMINATION: GENERAL: Slightly anxious, O2 in place, slight short of breath in bed. VITAL SIGNS: Temperature is 98 degrees, pulse 85, respirations 24, and blood pressure 137/69. CARDIOVASCULAR: No murmur. LUNGS: Poor air exchange. ABDOMEN: Bowel sounds distant. EXTREMITIES: No cyanosis or clubbing. 1+ edema. NEUROLOGIC: The patient is moving all extremities, slightly weak. LABORATORY AND DIAGNOSTIC DATA: Labs at this time show white count 14, otherwise CBC is normal. BMP show glucose 153, calcium 8.4. Albumin 2.8. ASSESSMENT: 1. Intractable back pain. 2. Shortness of breath. 3. Edema. 4. Malnutrition. 5. Diabetes. 6. Hypertension. 7. Obesity. 8. Back pain. 9. Congestive heart failure. 10. Chronic obstructive pulmonary disease. 11. Hypothyroid. 12. Arthritis. PLAN: 1. Blood pressure, blood sugar, and pain control. 2. O2 and pulmonary treatment. 3. Dietary followup. 4. Resume home medications. 5. PT and dietary evaluation. 6. CBC and BMP in the morning. Bill Lane D.O. DR: CHELI JOB#: [id number] CC:
[2019-07-16 16:00] VITALS: BP_SYST 107; BP_SYST 98; BP_DIAS 65; BP_DIAS 68
[2019-07-16] MEDS: dilTIAZem HCl 30mg tab ORAL SCH (17:50)
--- NOTE | 2019-07-16 19:36 | NUR ---
NURSE NOTES: not given 1800 meds as patient complained all day long of pain but finally could sleep in late afternoon. Day and night charge nurse aware and witnessed patient asleep. Notified NOC JAMEE Guerrier.
--- NOTE | 2019-07-16 19:37 | NUR ---
HAND-OFF: Report given to JAMEE Guerrier.
--- NOTE | 2019-07-16 19:40 | NUR ---
NURSE NOTES: Received patient on bed awake and verbally responsive. with venturi mask at 10lpm.with c/o pain on the lower back. reiterated to call or ask for assistance. needs attended and met.bed locked and in lowest position. call light and light button within easy reach. will continue to monitor.
[2019-07-16 20:00] VITALS: BP 149/68
[2019-07-16] MEDS: Sennosides 8.6mg tab ORAL SCH (20:21)
[2019-07-17] VITALS: BP 110/72
--- NOTE | 2019-07-17 01:30 | NUR ---
NURSE NOTES: patient c/o pain on the lower back. norco Q6 was given 5 hours ago. took out mso4 for breakthrough pain. went to the room and the iv line is out. returned mso4 to the [facility]. at 0230 administered norco q6h. re-inserted iv line at 0300.patient is currently sleeping.
[2019-07-17] MEDS: Morphine Sulfate 2mg/ml Inj(IV/IM USE ONLY) IVP PRN ×5 (01:35→21:58)
[2019-07-17] MEDS: HYDROcodone/Acetamin 5/325 tab ORAL PRN ×3 (02:35→16:34)
[2019-07-17] MEDS: Albuterol/Ipratropium 3ml neb HHN PRN ×4 (03:43→23:28)
[2019-07-17 04:00] VITALS: BP 109/69
[2019-07-17] MEDS: dilTIAZem HCl 30mg tab ORAL SCH ×4 (06:24→17:56)
[2019-07-17] MEDS: NovoLOG Insulin Flexpen SUBQ SCH ×4 (06:24→21:00)
--- NOTE | 2019-07-17 07:26 | NUR ---
HAND-OFF: Report given to sarwat hoover.
[2019-07-17 08:00] VITALS: BP 97/59
[2019-07-17] MEDS: Sertraline 50mg tab ORAL SCH (08:00)
[2019-07-17] MEDS: Aspirin Baby 81mg ORAL SCH (08:00)
[2019-07-17] MEDS: Docusate 100mg cap ORAL SCH ×2 (08:00→17:55)
[2019-07-17] MEDS: Memantine 5 MG TAB ORAL SCH ×2 (08:00→17:55)
--- NOTE | 2019-07-17 08:00 | NUR ---
NURSE NOTES: PT AXOX3, CALM, RESTING IN BED. PT CONTINUES TO YELL "IT HURTS! IT HURTS!". PT EDUCATED ON PRN SCHEDULE OF NORCO AND MORPHINE FOR BREAKTHROUGH PAIN. PT IN SEMI-FLOWERS'S POSITION WITH HOB ELEVATED. ON VENTURI MASK 10L, SATURATING 94-96%. WILL CONTINUE TO MONITOR.
[2019-07-17] MEDS: Enoxaparin 40mg Inj SUBQ SCH ×2 (08:01→21:05)
--- NOTE | 2019-07-17 08:49 | General Progress Note ---
Assessment/Plan Assessment/Plan: (1) Morbid obesity (2) Lumbago (3) Peripheral neuropathy (4) COPD (5) CHF Patient will be continued on Petersburg and Morphine D/w Dr. Hicks and he concurred. Subjective Date patient seen: Jul 17, 2019 Time patient seen: 08:15 - am Constitutional: Reports: weakness HEENT: Reports: no symptoms Cardiovascular: Reports: no symptoms Respiratory: Reports: no symptoms Gastrointestinal/Abdominal: Reports: no symptoms Genitourinary: Reports: no symptoms Neurologic/Psychiatric: Reports: no symptoms Endocrine: Reports: no symptoms Hematologic/Lymphatic: Reports: no symptoms Allergies: Coded Allergies: HALOPERIDOL (Verified Allergy, Unknown, 06/16/17) Subjective In bed no signs of pain or distress Pain is tolerated on the Petersburg and Morphine No new complaints at this time. Objective Last 24 Hour Vital Signs Date Time Temp Pulse Resp B/P (MAP) Pulse Ox O2 Delivery O2 Flow Rate FiO2 07/17/19 06:24 109 123/70 07/17/19 04:00 98.7 88 20 109/69 (82) 94 07/17/19 03:43 98 20 94 Venturi Mask 10.0 45 96 20 92 07/17/19 00:00 98.0 92 22 110/72 (85) 95 07/17/19 00:00 98 108/60 07/16/19 22:46 98 20 82 Venturi Mask 10.0 45 97 20 80 07/16/19 22:29 80 20 96 Venturi Mask 12.0 50 78 20 95 07/16/19 21:00 Venturi Mask 10.0 07/16/19 20:00 97.6 66 20 149/68 (95) 96 07/16/19 18:50 Venturi Mask 10.0 45 07/16/19 16:05 98 22 97 Venturi Mask 10.0 45 99 22 91 07/16/19 16:00 98.7 107 22 98/65 (76) 100 07/16/19 14:38 98.8 07/16/19 13:03 98.8 07/16/19 12:41 96 07/16/19 12:00 95 107/68 07/16/19 12:00 98.8 95 22 107/68 (81) 92 07/16/19 09:20 86 20 96 Nasal Cannula 2.0 88 20 95 07/16/19 09:00 Venturi Mask 10.0 Intake and Output 07/16/19 07/17/19 19:00 07:00 Intake Total 480 ml 480 ml Balance 480 ml 480 ml Intake Oral 480 ml 480 ml # Voids 5 2 Laboratory Tests 07/16/19 09:05: White Blood Count 12.0H, Red Blood Count 4.38, Hemoglobin 13.1, Hematocrit 38.9 , Mean Corpuscular Volume 89, Mean Corpuscular Hemoglobin 29.9, Mean Corpuscular Hemoglobin Concent 33.6, Red Cell Distribution Width 13.0, Platelet Count 170, Mean Platelet Volume 5.5L, Neutrophils (%) (Auto) 80.4H, Lymphocytes (%) (Auto) 11.0L, Monocytes (%) (Auto) 6.8, Eosinophils (%) (Auto) 1.0, Basophils (%) (Auto) 0.8, Sodium Level 137, Potassium Level 4.2, Chloride Level 98, Carbon Dioxide Level 38H, Anion Gap 1L, Blood Urea Nitrogen 12, Creatinine 0.6, Estimat Glomerular Filtration Rate , Glucose Level 130H, Calcium Level 8.3L 07/17/19 08:00: White Blood Count [Pending], Red Blood Count [Pending], Hemoglobin [Pending], Hematocrit [Pending], Mean Corpuscular Volume [Pending], Mean Corpuscular Hemoglobin [Pending], Mean Corpuscular Hemoglobin Concent [Pending], Red Cell Distribution Width [Pending], Platelet Count [Pending], Mean Platelet Volume [ Pending], Neutrophils (%) (Auto) [Pending], Lymphocytes (%) (Auto) [Pending], Monocytes (%) (Auto) [Pending], Eosinophils (%) (Auto) [Pending], Basophils (%) (Auto) [Pending], Sodium Level [Pending], Potassium Level [Pending], Chloride Level [Pending], Carbon Dioxide Level [Pending], Blood Urea Nitrogen [Pending], Creatinine [Pending], Estimat Glomerular Filtration Rate [Pending], Glucose Level [Pending], Calcium Level [Pending] Height (Feet): 5 Height (Inches): 5.00 Weight (Pounds): 400 General Appearance: no apparent distress, alert EENT: PERRL/EOMI, normal ENT inspection Neck: non-tender, normal alignment Cardiovascular: normal rate, regular rhythm Respiratory/Chest: decreased breath sounds Abdomen: non tender, soft Extremities: non-tender Edema: mild edema Neurologic: abnormal gait, alert Skin: warm/dry David Odom Jul 17, 2019 08:49
[2019-07-17] MEDS: LORazepam 0.5mg tab ORAL PRN ×2 (08:52→16:33)
--- NOTE | 2019-07-17 09:01 | Consultation ---
DATE OF CONSULTATION: 07/16/2019 NOTE: VERY POOR AUDIO INITIAL PSYCHIATRIC CONSULTATION HISTORY OF PRESENT ILLNESS: The patient is a 73-year-old female patient problems with insomnia. She is anxious and depressed. She talks about not being able to sleep well at night and would like something to improve her sleep. She is overlying diagnosis of depression, but essentially this patient was actually admitted to the hospital secondary to, she came in with right upper back pain and coughing over the past five days. she started having sharp back pain that was aggravated with movement and alleviated . She has increased depression and anxiety and that is the reason why daily psychiatric consultation is requested. PAST MEDICAL HISTORY: She has a history of COPD and peripheral neuropathy. She has hypertension. She also has a history of obstructive sleep apnea, hypertension, hypothyroidism, elevated status post aspiration pneumonia. ALLERGIES: To Haldol. MEDICATIONS: As far as this patient's psychotropic medications on admission, at this point this patient is on a medication regimen consisting of Zoloft 50 mg daily. She is on Namenda 5 mg twice a day and she also has one time dose of Ativan. SUBSTANCE ABUSE HISTORY: Denies drug and alcohol use. FAMILY PSYCHIATRIC HISTORY: Denies pain. . SOCIAL HISTORY: She is financially supported by [employer] and Medicare. She is currently living in [facility]. Financially supported by [employer] and Medicare. No known legal problems. STRENGTHS: She is motivated to get better. PSYCHIATRIC HISTORY: History of major depressive disorder, mild, recurrent, rule out generalized anxiety disorder, rule out dementia with psychosis, and rule out pseudodementia as well. MEDICAL PROBLEMS: She has a history of congestive heart failure, COPD, obstructive sleep apnea, pneumonia, chest pain, leukocytosis, cellulitis. Psychosocial stressors - financial. Functional impairment is severe. PLAN: Continue to treat this patient with medication regimen consisting of Zoloft at a dose of 50 mg daily, Namenda 5 mg twice a day, but since this patient is complaining of insomnia, he must be on a starting dose of trazodone at a dose of for insomnia as well as depression. MENTAL STATUS EXAMINATION: This is a 73-year-old female. Appearance is disheveled. Attitude, irritable and agitated. Affect, guarded and restricted. Intellect is poor because she has no current events . Mood, depressed and anxious. Motor activity, psychomotor agitation. Attention span is poor. orientation x3. . Speech, low volume, slurred. Thought process, disorganized and illogical. Thought content, denies auditory or visual hallucinations or delusions and perception is poor because she denies perception auditory hallucination and delusions paranoid delusions. Abstract reasoning is poor because she does not understand proverbs, only has concrete thinking. Insight is poor because psych disorder. Judgment is poor because she cannot make medical decisions for herself. She denies any current suicidal or homicidal ideation. Short-term memory, 2/3 word recall after 5 minute delay with poor short-term memory. Long-term memory is intact because she is able to recall long-term events in her life such as high school she went to. Her gait is normal. No abnormal movements . DIAGNOSES: 1. Major depressive disorder, mild, recurrent with psychotic features. 2. Rule out dementia with psychosis. 3. Medical includes COPD, congestive heart failure. 4. Psychosocial stressors, financial. 5. Functional impairment, severe. PLAN: Treat the patient with medication regimen consisting of, continue Zoloft 50 mg daily and continue Namenda 5 mg twice a day and also . I am going to continue on Neurontin 300 mg three times a day, Namenda 5 mg twice a day, and Ativan as needed treatment with Remeron 15 mg nightly and Ativan 1 mg every six hours p.r.n. agitation. Provided with 20 minutes of cognitive behavioral therapy to help identify automatic negative thoughts and help her convert the negative thoughts to more positive thoughts to reduce depression, anxiety, and suicidality. Twenty minutes of cognitive behavioral therapy was provided to help identify automatic negative thoughts and convert negative thoughts to positive thoughts to reduce depression, anxiety, and mood lability. I would like to thank Dr. Bill Lane for this interesting consultation. Chart reviewed with staff. The patient is seen and assessed at bedside. Filipe Yen M.D. DR: Leanna JOB#: [id number] CC:
--- NOTE | 2019-07-17 09:01 | Progress Note ---
NOTE: VERY POOR AUDIO PSYCHOTHERAPY CONSULTATION PROGRESS NOTE CONSULTING PHYSICIAN: Keyla Conde PsyD. TREATING ATTENDING PHYSICIAN: Bill Lane D.O. HISTORY OF PRESENT ILLNESS: This patient is a 73-year-old female patient. She is including major depression with psychotic features. This patient is admitted to [facility] for cough and back pain. She has been anxious and has been feeling depressed. For these reasons, she was referred for psychotherapeutic services. This clinician assessed the patient. . At this time, the patient . PAST MEDICAL HISTORY: Includes history of COPD, hypertension, neuropathy, and morbid obesity. ALLERGIES: The patient has allergies to Haldol. SUBSTANCE ABUSE HISTORY: There is no indication of alcohol use or illicit substance use. PAST PSYCHIATRIC HISTORY: She has a history of major depression and psychosis and has been treated with psychotropic medications in the past. SOCIAL HISTORY: The patient is a 73-year-old female patient from nursing facility. The patient is financially sustained by [employer] . MENTAL STATUS EXAMINATION: She is awake, alert, and oriented to person, place, and time. Mood is anxious. Affect is congruent. Thought process disorganized. Thought content is poor attention and concentration. Poor insight, judgment, and impulse control. DIAGNOSES: 1. Major depressive disorder, recurrent, moderate without psychotic features. 2. Hypertension, neuropathy, obesity, . 3. Psychosocial stressors are moderate. TODAY, I ASSESSED THE PATIENT AND PROVIDED THE PATIENT WITH: psychotic disorder. psychotherapy. coping skills . Plan is to maintain medication compliance with positive coping skills and stabilizing her thoughts and behavior. Psychotherapy service for this patient is 45 minutes. This clinician has reviewed the patient's chart and discussed the treatment with treatment team. Keyla Conde PsyD. DR: Ketty JOB#: [id number] CC:
[2019-07-17 09:08] LABS: ANION GAP 1 mmol/L (5-15); BLOOD UREA NITROGEN 11 mg/dL (7-18); CALCIUM 8.4 MG/DL (8.5-10.1); CARBON DIOXIDE 37 MMOL/L (21-32); CHLORIDE 100 MMOL/L (98-107); CREATININE 0.6 MG/DL (0.55-1.30); SODIUM 138 MMOL/L (136-145)
--- NOTE | 2019-07-17 09:30 | NUR ---
PT NOTE Received MD order for PT evaluation. Attempted to see patient for PT evaluation however patient declined to participate due to pain. Will re-attempt later as schedule permits, Luis Carlos MANCUSO notified.
--- NOTE | 2019-07-17 09:34 | General Progress Note ---
Assessment/Plan Problem List: (1) Elevated WBC count ICD Codes: D72.829 - Elevated white blood cell count, unspecified SNOMED: 241091490, 049051386 (2) HTN (hypertension) ICD Codes: I10 - Essential (primary) hypertension SNOMED: 44443352 (3) Back pain ICD Codes: M54.9 - Dorsalgia, unspecified SNOMED: 216971838 Qualifiers: Qualified Codes: M54.6 - Pain in thoracic spine (4) Cough ICD Codes: R05 - Cough SNOMED: 61193369 (5) COPD (chronic obstructive pulmonary disease) ICD Codes: J44.9 - Chronic obstructive pulmonary disease, unspecified SNOMED: 83231974 (6) CHF (congestive heart failure) ICD Codes: I50.9 - Heart failure, unspecified SNOMED: 12583664 (7) Hypothyroidism ICD Codes: E03.9 - Hypothyroidism, unspecified SNOMED: 46366920 (8) Obese ICD Codes: E66.9 - Obesity, unspecified SNOMED: 289334667, 748676488 (9) Peripheral edema ICD Codes: R60.9 - Edema, unspecified SNOMED: 491210550 Status: unchanged Assessment/Plan: pt dit o2 pulm tx bp bs control cbc bmp in am aru eval Subjective Constitutional: Reports: weakness Allergies: Coded Allergies: HALOPERIDOL (Verified Allergy, Unknown, 06/16/17) All Systems: reviewed and negative except above Subjective pulm tx sleepy Objective Last 24 Hour Vital Signs Date Time Temp Pulse Resp B/P (MAP) Pulse Ox O2 Delivery O2 Flow Rate FiO2 07/17/19 09:25 96 Venturi Mask 10.0 45 07/17/19 09:24 84 20 97 Venturi Mask 10.0 40 85 20 96 07/17/19 08:00 99.6 88 22 97/59 (72) 97 07/17/19 06:24 109 123/70 07/17/19 04:00 98.7 88 20 109/69 (82) 94 07/17/19 03:43 98 20 94 Venturi Mask 10.0 45 96 20 92 07/17/19 00:00 98.0 92 22 110/72 (85) 95 07/17/19 00:00 98 108/60 07/16/19 22:46 98 20 82 Venturi Mask 10.0 45 97 20 80 07/16/19 22:29 80 20 96 Venturi Mask 12.0 50 78 20 95 07/16/19 21:00 Venturi Mask 10.0 07/16/19 20:00 97.6 66 20 149/68 (95) 96 07/16/19 18:50 Venturi Mask 10.0 45 07/16/19 16:05 98 22 97 Venturi Mask 10.0 45 99 22 91 07/16/19 16:00 98.7 107 22 98/65 (76) 100 07/16/19 14:38 98.8 07/16/19 13:03 98.8 07/16/19 12:41 96 07/16/19 12:00 95 107/68 07/16/19 12:00 98.8 95 22 107/68 (81) 92 Intake and Output 07/16/19 07/17/19 19:00 07:00 Intake Total 480 ml 480 ml Balance 480 ml 480 ml Intake Oral 480 ml 480 ml # Voids 5 2 Laboratory Tests 07/17/19 08:00: Sodium Level 138, Potassium Level 4.0, Chloride Level 100, Carbon Dioxide Level 37H, Anion Gap 1L, Blood Urea Nitrogen 11, Creatinine 0.6, Estimat Glomerular Filtration Rate , Glucose Level 128H, Calcium Level 8.4L Height (Feet): 5 Height (Inches): 5.00 Weight (Pounds): 400 General Appearance: lethargic EENT: normal ENT inspection Neck: normal alignment Cardiovascular: normal peripheral pulses, normal rate, regular rhythm Respiratory/Chest: chest wall non-tender, lungs clear, normal breath sounds Abdomen: normal bowel sounds, non tender, soft Extremities: normal inspection Edema: no edema noted Arm (L), no edema noted Arm (R), no edema noted Leg (L), no edema noted Leg (R), no edema noted Pedal (L), no edema noted Pedal (R), no edema noted Generalized Neurologic: motor weakness Skin: normal pigmentation, warm/dry Bill Lane DO Jul 17, 2019 09:34
[2019-07-17 09:50] LABS: BASOPHILS % (AUTO) 0.4 % (0.0-2.0); EOSINOPHILS % (AUTO) 1.1 % (0.0-3.0); HEMATOCRIT 39.2 % (37.0-47.0); HEMOGLOBIN 13.3 G/DL (12.0-16.0); LYMPHOCYTES % (AUTO) 9.8 % (20.0-45.0); MEAN CORPUSCULAR VOLUME 88 FL (80-99); NEUTROPHILS % (AUTO) 80.6 % (45.0-75.0); PLATELET COUNT 167 K/UL (150-450); RED BLOOD COUNT 4.44 M/UL (4.20-5.40); RED CELL DISTRIBUTION WIDTH 13.2 % (11.6-14.8); WHITE BLOOD COUNT 12.6 K/UL (4.8-10.8)
[2019-07-17] MEDS: Budesonide HHN 0.25mg/2ml ud HHN SCH ×2 (10:00→23:27)
[2019-07-17 12:00] VITALS: BP 136/84
--- NOTE | 2019-07-17 13:06 | Consultation ---
History of Present Illness General Date patient seen: Jul 17, 2019 Chief Complaint: Back Pain-No Injury Referring physician: Domingo Reason for Consultation: Pain Management Present Illness HPI 73-year-old female with hx of CHF, COPD, MELVIN, morbid obesity, hypothyroid, brought in by EMS from [facility] with CC of intractable back pain. She had some leukocytosis and some congestion and atelectasis on CXR. She is admitted for further work up. she is sitting up in the chair, seems slightly SOB and on venturi mask saturating around 94% Allergies: Coded Allergies: HALOPERIDOL (Verified Allergy, Unknown, 06/16/17) Medication History Scheduled Acetylcysteine* (Acetylcysteine*), 400 MG INH Q8HR, (Reported) Aspirin (Aspirin), 81 MG PO DAILY, (Reported) Atorvastatin Calcium* (Lipitor*), 20 MG ORAL DAILY, (Reported) Budesonide (Budesonide), 0.5 MG IH Q12HR, (Reported) Cefazolin Sodium/Dextrose,Iso (Cefazolin 1 Gm-D5w Bag), 1 GM IVPB Q8HR, ( Reported) Diltiazem Hcl (Diltiazem Hcl), 30 MG PO Q6HR, (Reported) Docusate Sodium* (Colace*), 100 MG ORAL THREE TIMES A DAY, (Reported) Docusate Sodium* (Colace*), 100 MG ORAL TWICE A DAY, (Reported) Enoxaparin* (Lovenox*), 40 MG SUBQ EVERY 12 HOURS, (Reported) Gabapentin* (Gabapentin*), 300 MG ORAL THREE TIMES A DAY, (Reported) Heparin Sod (Porcine) (Heparin Sodium*), 5,000 UNITS SUBQ EVERY 12 HOURS, ( Reported) Ipratropium/Albuterol Sulfate (DuoNeb 0.5-3(2.5)mg/3ml), 3 ML HHN Q4HR, ( Reported) Lactulose (Lactulose*), 30 ML ORAL BID, (Reported) Levothyroxine Sodium* (Synthroid*), 125 MCG ORAL DAILY, (Reported) Magnesium Hydroxide* (Milk Of Magnesia*), 30 ML ORAL DAILY, (Reported) Memantine Hcl* (Namenda*), 5 MG ORAL TWICE A DAY, (Reported) Pantoprazole* (Pantoprazole*), 40 MG ORAL BEFORE BREAKFAST, (Reported) Polyethylene Glycol 3350* (Miralax*), 17 GM ORAL BEDTIME, (Reported) Prednisone* (Prednisone*), 20 MG ORAL DAILY, (Reported) Prednisone* (Prednisone*), 20 MG ORAL DAILY, (Reported) Sennosides (Senna), 8.6 MG PO QHS, (Reported) Sertraline Hcl* (Zoloft*), 50 MG ORAL DAILY, (Reported) Scheduled PRN Acetaminophen* (Acetaminophen 325MG Tablet*), 650 MG ORAL Q6H PRN for Mild Pain/ Temp > 100.5, (Reported) Diphenhydramine Hcl* (Benadryl*), 25 MG ORAL Q6H PRN for Itching, (Reported) Guaifenesin* (Guaifenesin*), 10 ML ORAL Q4H PRN for FOR COUGH, (Reported) Hydrocodone Bit/Acetaminophen 5-325* ([place] 5-325*), 1 TAB ORAL Q6H PRN for Severe Pain (Pain Scale 7-10), (Reported) Ipratropium/Albuterol Sulfate (DuoNeb 0.5-3(2.5)mg/3ml), 3 ML HHN Q4HR PRN for shortness of breath, (Reported) Nitroglycerin 0.4MG table* (Nitroglycerin*), 0.4 MG SL .Q5MIN X 3 DOSES PRN for CHEST PAIN, (Reported) Temazepam (Restoril*), 30 MG ORAL BEDTIME PRN for Insomnia, (Reported) Zolpidem Tartrate* (Ambien*), 5 MG ORAL BEDTIME PRN for Insomnia, (Reported) Patient History Healthcare decision maker Resuscitation status Full Code Advanced Directive on File Past Medical/Surgical History Past Medical/Surgical History: (1) CAD (coronary artery disease) (2) Schizophrenia (3) Morbid obesity (4) COPD (chronic obstructive pulmonary disease) (5) Hypothyroidism (6) Peripheral edema (7) MELVIN (obstructive sleep apnea) (8) HTN (hypertension) Review of Systems Respiratory: Reports: shortness of breath All Other Systems: negative except mentioned in HPI Physical Exam General Appearance: morbidly obese Lines, tubes and drains: peripheral HEENT: normocephalic, atraumatic Neck: non-tender, normal alignment, supple Respiratory/Chest: chest wall non-tender, normal breath sounds Breasts: no masses Cardiovascular/Chest: normal rate Genitourinary/Rectal: heme negative stool Extremities: normal range of motion Last 24 Hour Vital Signs Date Time Temp Pulse Resp B/P (MAP) Pulse Ox O2 Delivery O2 Flow Rate FiO2 07/17/19 12:27 101 136/84 07/17/19 12:00 99.4 101 22 136/84 (101) 96 07/17/19 11:52 79 20 97 Venturi Mask 10.0 40 76 20 96 07/17/19 09:25 96 Venturi Mask 10.0 45 07/17/19 09:24 84 20 97 Venturi Mask 10.0 40 85 20 96 07/17/19 09:00 Venturi Mask 10.0 07/17/19 08:00 99.6 88 22 97/59 (72) 97 07/17/19 06:24 109 123/70 07/17/19 04:00 98.7 88 20 109/69 (82) 94 07/17/19 03:43 98 20 94 Venturi Mask 10.0 45 96 20 92 07/17/19 00:00 98.0 92 22 110/72 (85) 95 07/17/19 00:00 98 108/60 07/16/19 22:46 98 20 82 Venturi Mask 10.0 45 97 20 80 07/16/19 22:29 80 20 96 Venturi Mask 12.0 50 78 20 95 07/16/19 21:00 Venturi Mask 10.0 07/16/19 20:00 97.6 66 20 149/68 (95) 96 07/16/19 18:50 Venturi Mask 10.0 45 07/16/19 16:05 98 22 97 Venturi Mask 10.0 45 99 22 91 07/16/19 16:00 98.7 107 22 98/65 (76) 100 07/16/19 14:38 98.8 07/16/19 13:03 98.8 Intake and Output 07/16/19 07/17/19 19:00 07:00 Intake Total 480 ml 480 ml Balance 480 ml 480 ml Intake Oral 480 ml 480 ml # Voids 5 2 Laboratory Tests Test 07/17/19 08:00 07/17/19 09:20 Sodium Level 138 MMOL/L (136-145) Potassium Level 4.0 MMOL/L (3.5-5.1) Chloride Level 100 MMOL/L (98-107) Carbon Dioxide Level 37 MMOL/L (21-32) H Anion Gap 1 mmol/L (5-15) L Blood Urea Nitrogen 11 mg/dL (7-18) Creatinine 0.6 MG/DL (0.55-1.30) Estimat Glomerular Filtration Rate mL/min (>60) Glucose Level 128 MG/DL (74-106) H Calcium Level 8.4 MG/DL (8.5-10.1) L White Blood Count 12.6 K/UL (4.8-10.8) H Red Blood Count 4.44 M/UL (4.20-5.40) Hemoglobin 13.3 G/DL (12.0-16.0) Hematocrit 39.2 % (37.0-47.0) Mean Corpuscular Volume 88 FL (80-99) Mean Corpuscular Hemoglobin 29.9 PG (27.0-31.0) Mean Corpuscular Hemoglobin Concent 33.8 G/DL (32.0-36.0) Red Cell Distribution Width 13.2 % (11.6-14.8) Platelet Count 167 K/UL (150-450) Mean Platelet Volume 6.1 FL (6.5-10.1) L Neutrophils (%) (Auto) 80.6 % (45.0-75.0) H Lymphocytes (%) (Auto) 9.8 % (20.0-45.0) L Monocytes (%) (Auto) 8.0 % (1.0-10.0) Eosinophils (%) (Auto) 1.1 % (0.0-3.0) Basophils (%) (Auto) 0.4 % (0.0-2.0) Height (Feet): 5 Height (Inches): 5.00 Weight (Pounds): 400 Medications Current Medications Medications (Trade) Dose Ordered Sig/Marleni Route PRN Reason Start Time Stop Time Status Last Admin Dose Admin Acetaminophen (Tylenol) 650 mg Q6H PRN ORAL Mild Pain/Temp > 100.5 07/16/19 07:00 08/15/19 06:59 Acetaminophen/ Hydrocodone Bitart ([place] 5/325) 1 tab Q6H PRN ORAL Severe Pain (Pain Scale 7-10) 07/16/19 07:00 07/23/19 06:59 07/17/19 08:52 Acetylcysteine (Mucomyst) 400 mg Q8HRT INH 07/16/19 07:30 08/15/19 07:29 07/17/19 07:00 Albuterol/ Ipratropium (Albuterol/ Ipratropium) 3 ml Q4HR PRN HHN shortness of breath 07/16/19 07:00 07/21/19 06:59 07/17/19 09:26 Aspirin (ASA) 81 mg DAILY ORAL 07/16/19 09:00 08/15/19 08:59 07/17/19 08:00 Budesonide (Pulmicort) 0.5 mg Q12HRT HHN 07/16/19 10:00 08/15/19 09:59 07/17/19 10:00 Dextrose (Dextrose 50%) 25 ml Q30M PRN IV Hypoglycemia 07/16/19 07:30 08/15/19 07:29 Dextrose (Dextrose 50%) 50 ml Q30M PRN IV Hypoglycemia 07/16/19 07:30 08/15/19 07:29 Diltiazem HCl (Cardizem) 30 mg Q6HR ORAL 07/16/19 18:00 08/15/19 11:59 07/17/19 12:27 Docusate Sodium (Colace) 100 mg TWICE A DAY ORAL 07/16/19 09:00 08/15/19 08:59 07/17/19 08:00 Enoxaparin Sodium (Lovenox) 40 mg EVERY 12 HOURS SUBQ 07/16/19 09:00 08/15/19 08:59 07/17/19 08:01 Gabapentin (Neurontin) 300 mg THREE TIMES A DAY ORAL 07/16/19 09:00 08/15/19 08:59 07/17/19 12:27 Guaifenesin (Robitussin) 200 mg Q4H PRN ORAL FOR COUGH 07/16/19 07:00 08/15/19 06:59 Insulin Aspart (NovoLOG) BEFORE MEALS AND HS SUBQ 07/16/19 11:30 08/15/19 11:29 07/16/19 12:36 Lorazepam (Ativan) 0.5 mg Q6H PRN ORAL For Anxiety 07/16/19 14:00 07/23/19 13:59 07/17/19 08:52 Memantine (Namenda) 5 mg BID ORAL 07/16/19 09:00 08/15/19 08:59 07/17/19 08:00 Mirtazapine (Remeron) 15 mg BEDTIME ORAL 07/16/19 21:00 08/15/19 20:59 07/16/19 20:21 Morphine Sulfate (Morphine Sulfate) 2 mg Q4H PRN IVP Severe Breakthru Pain (>7) 07/16/19 13:45 07/23/19 13:44 07/17/19 10:33 Ondansetron HCl (Zofran) 4 mg PRN PRN IVP Nausea & Vomiting 07/16/19 02:15 Pantoprazole (Protonix) 40 mg BEFORE BREAKFAST ORAL 07/17/19 06:30 08/16/19 06:29 07/17/19 06:23 Sennosides (Senokot) 8.6 mg QHS ORAL 07/16/19 21:00 08/15/19 20:59 07/16/19 20:21 Sertraline HCl (Zoloft) 50 mg DAILY ORAL 07/16/19 09:00 08/15/19 08:59 07/17/19 08:00 Zolpidem Tartrate (Ambien) 5 mg BEDTIME PRN ORAL Insomnia 07/16/19 07:00 07/23/19 06:59 Assessment/Plan Problem List: (1) COPD (chronic obstructive pulmonary disease) ICD Codes: J44.9 - Chronic obstructive pulmonary disease, unspecified SNOMED: 17503851 (2) Peripheral edema ICD Codes: R60.9 - Edema, unspecified SNOMED: 299007150 (3) MELVIN (obstructive sleep apnea) ICD Codes: G47.33 - Obstructive sleep apnea (adult) (pediatric) SNOMED: 61644298 (4) Schizophrenia ICD Codes: F20.9 - Schizophrenia, unspecified SNOMED: 95277188 (5) Morbid obesity ICD Codes: E66.01 - Morbid (severe) obesity due to excess calories SNOMED: 022144866 (6) HTN (hypertension) ICD Codes: I10 - Essential (primary) hypertension SNOMED: 80567838 (7) Hypothyroidism ICD Codes: E03.9 - Hypothyroidism, unspecified SNOMED: 31700136 Assessment/Plan: titrate fio2 to sat of 92% check BNP and CXR in am pain management respiratory treatment sputum for c/s dvt prophylaxis. Fartun Gan MD Jul 17, 2019 13:06
[2019-07-17] MEDS ORDERED: Promethazine/Codeine 5ml UD ORAL PRN (13:08)
--- NOTE | 2019-07-17 15:15 | Progress Note ---
DATE: 07/17/2019 SUBJECTIVE: This is a 73-year-old female patient. She continues to have some mild depression, confusion, mood lability, significant decline in cognition below her baseline. That is why, she does require daily psychiatric consultation. This is a 73-year-old female patient who has anxiety and depression, but she also has problems with sleep. She came in because she had cough and back pain, but she is endorsing that she has depression, anxiety, and problems with sleep and she is still perseverating a little difficulty sleeping throughout her hospital course. MENTAL STATUS EXAMINATION: This is a 73-year-old female. Appearance is disheveled. Attitude, irritable and agitated. Affect, guarded and restricted. Intellect, poor. Mood, depressed and anxious. Motor activity, psychomotor agitation. Attention span is poor. Orientation x2. Speech is pressured. Insight and judgment is poor. DIAGNOSIS: Major depressive disorder, mild, recurrent with psychotic features, rule out dementia with psychosis. PLAN: Plan for this patient is to treat her with a psychotropic medication regimen consisting of Zoloft 50 mg daily, Remeron 15 at bedtime, Namenda 5 mg twice a day. Provide her with 20 minutes of cognitive behavioral therapy to help her identify automatic negative thoughts and help her convert her negative thoughts to more positive thoughts to reduce depression, anxiety, and mood lability. Chart reviewed. Discussed with staff. Seen and assessed at the bedside. She will continued to be followed by Psychiatry per request of her attending physician. Filipe Yen M.D. DR: MONTRELL JOB#: [id number] CC:
[2019-07-17 16:00] VITALS: BP 101/61
--- NOTE | 2019-07-17 19:20 | NUR ---
NURSE NOTES: Received patient in bed. Patient is awake, A/O x4. Venturi mask in place, respirations unlabored. Patient denies pain. IV in the Left upper arm with no redness or swelling. Purewick in place.
--- NOTE | 2019-07-17 19:27 | NUR ---
HAND-OFF: Report given to Ángel DAVEY RN.
[2019-07-17 20:00] VITALS: BP 126/62
[2019-07-17] MEDS: Theophylline ER 100mg ORAL SCH (21:03)
[2019-07-17] MEDS: Sennosides 8.6mg tab ORAL SCH (21:03)
[2019-07-18] VITALS: BP 155/87
[2019-07-18] MEDS: dilTIAZem HCl 30mg tab ORAL SCH ×5 (01:24→18:40)
[2019-07-18] MEDS: HYDROcodone/Acetamin 5/325 tab ORAL PRN ×2 (01:25→07:43)
[2019-07-18 04:00] VITALS: BP 121/66
[2019-07-18] MEDS: Morphine Sulfate 2mg/ml Inj(IV/IM USE ONLY) IVP PRN ×5 (04:40→22:18)
[2019-07-18] MEDS: NovoLOG Insulin Flexpen SUBQ SCH ×4 (06:30→20:19)
--- NOTE | 2019-07-18 07:19 | NUR ---
HAND-OFF: Report given to Luis Carlos MANCUSO.
[2019-07-18] MEDS: LORazepam 0.5mg tab ORAL PRN (07:43)
[2019-07-18] MEDS: Albuterol/Ipratropium 3ml neb HHN PRN ×3 (07:49→23:31)
[2019-07-18 08:00] VITALS: BP 105/57
--- NOTE | 2019-07-18 08:00 | NUR ---
NURSE NOTES: PT AXOX3, RESTING IN BED. PT COMPLAINS OF BACK PAIN AND STATES SHE WANTS PAIN MEDICATION. RN EDUCATED PT ON PRN SCHEDULE OF NORCO AND IV MORPHINE. RN ADMINISTERED PRN NORCO ORDERED. IN NO APPARENT DISTRESS AT THIS TIME. BED IN LOWEST POSITION WITH BEDSIDE RAILS X3 RASED. CALL LIGHT WITHIN REACH. WILL CONTINUE TO MONITOR.
[2019-07-18] MEDS: Aspirin Baby 81mg ORAL SCH (08:38)
[2019-07-18] MEDS: Theophylline ER 100mg ORAL SCH ×2 (08:38→20:17)
[2019-07-18] MEDS: Docusate 100mg cap ORAL SCH ×2 (08:38→17:12)
[2019-07-18] MEDS: Memantine 5 MG TAB ORAL SCH ×2 (08:39→17:12)
[2019-07-18] MEDS: Sertraline 50mg tab ORAL SCH (08:39)
[2019-07-18] MEDS: Enoxaparin 40mg Inj SUBQ SCH (08:40)
[2019-07-18 08:42] LABS: BASOPHILS % (AUTO) 1.1 % (0.0-2.0); EOSINOPHILS % (AUTO) 1.5 % (0.0-3.0); HEMATOCRIT 39.3 % (37.0-47.0); HEMOGLOBIN 13.2 G/DL (12.0-16.0); LYMPHOCYTES % (AUTO) 12.1 % (20.0-45.0); MEAN CORPUSCULAR VOLUME 89 FL (80-99); MONOCYTES % (AUTO) 8.5 % (1.0-10.0); NEUTROPHILS % (AUTO) 76.8 % (45.0-75.0); PLATELET COUNT 193 K/UL (150-450); RED BLOOD COUNT 4.42 M/UL (4.20-5.40); RED CELL DISTRIBUTION WIDTH 13.7 % (11.6-14.8)
--- NOTE | 2019-07-18 08:50 | NUR ---
PT NOTE Attempted to see patient for PT evaluation however patient declined to participate due to c/o fatigue stating "I'm too tired.". Will re-attempt later as schedule permits, Luis Carlos RN notified.
[2019-07-18 09:01] LABS: ALANINE AMINOTRANSFERASE 65 U/L (12-78); ALBUMIN 2.7 G/DL (3.4-5.0); ALBUMIN/GLOBULIN RATIO 0.8 (1.0-2.7); ALKALINE PHOSPHATASE 76 U/L (46-116); ANION GAP 4 mmol/L (5-15); ASPARTATE AMINO TRANSFERASE 27 U/L (15-37); BILIRUBIN,TOTAL 0.8 MG/DL (0.2-1.0); BLOOD UREA NITROGEN 8 mg/dL (7-18); CALCIUM 8.8 MG/DL (8.5-10.1); CARBON DIOXIDE 37 MMOL/L (21-32); CHLORIDE 99 MMOL/L (98-107); CREATININE 0.7 MG/DL (0.55-1.30); SODIUM 140 MMOL/L (136-145)
--- NOTE | 2019-07-18 09:01 | General Progress Note ---
Assessment/Plan Assessment/Plan: (1) Morbid obesity (2) Lumbago (3) Peripheral neuropathy (4) COPD (5) CHF Patient will be continued on [place] and Morphine D/w Dr. Hicks and he concurred. Subjective Date patient seen: Jul 18, 2019 Time patient seen: 08:00 - am Constitutional: Reports: weakness HEENT: Reports: no symptoms Cardiovascular: Reports: no symptoms Respiratory: Reports: shortness of breath Gastrointestinal/Abdominal: Reports: no symptoms Genitourinary: Reports: no symptoms Neurologic/Psychiatric: Reports: no symptoms Endocrine: Reports: no symptoms Hematologic/Lymphatic: Reports: no symptoms Allergies: Coded Allergies: HALOPERIDOL (Verified Allergy, Unknown, 06/16/17) Subjective Patient continues to c/o pain which has been tolerated on the [place] and Morphine as needed. She has no new complaints at this time. Objective Last 24 Hour Vital Signs Date Time Temp Pulse Resp B/P (MAP) Pulse Ox O2 Delivery O2 Flow Rate FiO2 07/18/19 08:00 97.0 87 17 105/57 (73) 95 07/18/19 07:12 96 Venturi Mask 10.0 45 07/18/19 07:12 97 20 99 Venturi Mask 10.0 45 93 20 96 07/18/19 05:52 95 121/66 07/18/19 04:00 98.9 95 18 121/66 (84) 92 07/18/19 01:24 101 126/62 07/18/19 00:00 99.2 115 22 155/87 (109) 93 07/17/19 23:35 118 20 95 Venturi Mask 10.0 45 112 20 94 07/17/19 23:00 114 20 98 Venturi Mask 10.0 45 112 20 96 07/17/19 21:00 Venturi Mask 10.0 07/17/19 20:00 95 Venturi Mask 10.0 45 07/17/19 20:00 99.0 101 16 126/62 (83) 93 07/17/19 17:56 97 101/61 07/17/19 16:00 98.7 97 22 101/61 (74) 94 07/17/19 15:49 92 20 97 Venturi Mask 10.0 40 90 20 95 07/17/19 12:27 101 136/84 07/17/19 12:00 99.4 101 22 136/84 (101) 96 07/17/19 11:52 79 20 97 Venturi Mask 10.0 40 76 20 96 07/17/19 09:25 96 Venturi Mask 10.0 45 07/17/19 09:24 84 20 97 Venturi Mask 10.0 40 85 20 96 Intake and Output 07/17/19 07/18/19 19:00 07:00 Intake Total 480 ml 120 ml Output Total 800 ml Balance 480 ml -680 ml Intake Oral 480 ml Other 120 ml Output Urine Total 800 ml # Voids 2 # Bowel Movements 1 Laboratory Tests 07/17/19 09:20: White Blood Count 12.6H, Red Blood Count 4.44, Hemoglobin 13.3, Hematocrit 39.2 , Mean Corpuscular Volume 88, Mean Corpuscular Hemoglobin 29.9, Mean Corpuscular Hemoglobin Concent 33.8, Red Cell Distribution Width 13.2, Platelet Count 167, Mean Platelet Volume 6.1L, Neutrophils (%) (Auto) 80.6H, Lymphocytes (%) (Auto) 9.8L, Monocytes (%) (Auto) 8.0, Eosinophils (%) (Auto) 1.1, Basophils (%) (Auto) 0.4 07/18/19 07:55: White Blood Count 11.0H, Red Blood Count 4.42, Hemoglobin 13.2, Hematocrit 39.3 , Mean Corpuscular Volume 89, Mean Corpuscular Hemoglobin 30.0, Mean Corpuscular Hemoglobin Concent 33.7, Red Cell Distribution Width 13.7, Platelet Count 193, Mean Platelet Volume 5.9L, Neutrophils (%) (Auto) 76.8H, Lymphocytes (%) (Auto) 12.1L, Monocytes (%) (Auto) 8.5, Eosinophils (%) (Auto) 1.5, Basophils (%) (Auto) 1.1, Sodium Level [Pending], Potassium Level [Pending], Chloride Level [Pending], Carbon Dioxide Level [Pending], Blood Urea Nitrogen [ Pending], Creatinine [Pending], Estimat Glomerular Filtration Rate [Pending], Glucose Level [Pending], Calcium Level [Pending], Total Bilirubin [Pending], Aspartate Amino Transf (AST/SGOT) [Pending], Alanine Aminotransferase (ALT/SGPT ) [Pending], Alkaline Phosphatase [Pending], Pro-B-Type Natriuretic Peptide [ Pending], Total Protein [Pending], Albumin [Pending], Globulin [Pending] Height (Feet): 5 Height (Inches): 5.00 Weight (Pounds): 400 General Appearance: no apparent distress, alert EENT: PERRL/EOMI, normal ENT inspection Neck: non-tender, normal alignment Cardiovascular: normal rate, regular rhythm Respiratory/Chest: decreased breath sounds Abdomen: non tender, soft Edema: mild edema Neurologic: alert, oriented x 3 Skin: warm/dry David Odom Jul 18, 2019 09:01
--- NOTE | 2019-07-18 09:54 | NUR ---
RADIOLOGY DEPT., CHEST X-RAY DONE.-P.DYE
[2019-07-18] MEDS: Budesonide HHN 0.25mg/2ml ud HHN SCH ×2 (10:47→22:09)
--- NOTE | 2019-07-18 11:44 | Pulmonology Progress Note ---
Assessment/Plan Problems: (1) COPD (chronic obstructive pulmonary disease) (2) Peripheral edema (3) MELVIN (obstructive sleep apnea) (4) Schizophrenia (5) Morbid obesity (6) HTN (hypertension) (7) Hypothyroidism Assessment/Plan back pain not controlled yet, she is asking for fentanyl patch respiratory treatment continue supplemental oxygen symptomatic treatment titrate fio2 to sat of 92% Subjective ROS Limited/Unobtainable: No Constitutional: Reports: no symptoms HEENT: Repors: no symptoms Allergies: Coded Allergies: HALOPERIDOL (Verified Allergy, Unknown, 06/16/17) Objective Last 24 Hour Vital Signs Date Time Temp Pulse Resp B/P (MAP) Pulse Ox O2 Delivery O2 Flow Rate FiO2 07/18/19 10:47 105 20 97 Venturi Mask 10.0 45 103 20 96 07/18/19 09:00 Venturi Mask 10.0 07/18/19 08:00 97.0 87 17 105/57 (73) 95 07/18/19 07:12 96 Venturi Mask 10.0 45 07/18/19 07:12 97 20 99 Venturi Mask 10.0 45 93 20 96 07/18/19 05:52 95 121/66 07/18/19 04:00 98.9 95 18 121/66 (84) 92 07/18/19 01:24 101 126/62 07/18/19 00:00 99.2 115 22 155/87 (109) 93 07/17/19 23:35 118 20 95 Venturi Mask 10.0 45 112 20 94 07/17/19 23:00 114 20 98 Venturi Mask 10.0 45 112 20 96 07/17/19 21:00 Venturi Mask 10.0 07/17/19 20:00 95 Venturi Mask 10.0 45 07/17/19 20:00 99.0 101 16 126/62 (83) 93 07/17/19 17:56 97 101/61 07/17/19 16:00 98.7 97 22 101/61 (74) 94 07/17/19 15:49 92 20 97 Venturi Mask 10.0 40 90 20 95 07/17/19 12:27 101 136/84 07/17/19 12:00 99.4 101 22 136/84 (101) 96 07/17/19 11:52 79 20 97 Venturi Mask 10.0 40 76 20 96 Intake and Output 07/17/19 07/18/19 18:59 06:59 Intake Total 480 ml 120 ml Output Total 800 ml Balance 480 ml -680 ml Intake Oral 480 ml Other 120 ml Output Urine Total 800 ml # Voids 2 # Bowel Movements 1 General Appearance: WD/WN HEENT: normocephalic, atraumatic Respiratory/Chest: chest wall non-tender, lungs clear Breasts: no masses Cardiovascular: normal peripheral pulses, regular rhythm Abdomen: normal bowel sounds, no organomegaly Genitourinary: normal external genitalia Extremities: no clubbing Microbiology Date/Time Source Procedure Growth Status 07/15/19 23:30 Nasal Nares MRSA Culture - Final Staphylococcus Aureus - Mrsa Complete 07/15/19 23:30 Rectum - Final NO CARBAPENEM-RESISTANT ENTEROBACTERI... Complete 07/15/19 23:30 Rectum VRE Culture - Final Enterococcus Faecium - Vre Complete Laboratory Tests 07/18/19 07:55: White Blood Count 11.0H, Red Blood Count 4.42, Hemoglobin 13.2, Hematocrit 39.3 , Mean Corpuscular Volume 89, Mean Corpuscular Hemoglobin 30.0, Mean Corpuscular Hemoglobin Concent 33.7, Red Cell Distribution Width 13.7, Platelet Count 193, Mean Platelet Volume 5.9L, Neutrophils (%) (Auto) 76.8H, Lymphocytes (%) (Auto) 12.1L, Monocytes (%) (Auto) 8.5, Eosinophils (%) (Auto) 1.5, Basophils (%) (Auto) 1.1, Sodium Level 140, Potassium Level 4.0, Chloride Level 99, Carbon Dioxide Level 37H, Anion Gap 4L, Blood Urea Nitrogen 8, Creatinine 0.7, Estimat Glomerular Filtration Rate , Glucose Level 140H, Calcium Level 8.8 , Total Bilirubin 0.8, Aspartate Amino Transf (AST/SGOT) 27, Alanine Aminotransferase (ALT/SGPT) 65, Alkaline Phosphatase 76, Pro-B-Type Natriuretic Peptide 367H, Total Protein 6.2L, Albumin 2.7L, Globulin 3.5, Albumin/Globulin Ratio 0.8L Current Medications Medications (Trade) Dose Ordered Sig/Marleni Route PRN Reason Start Time Stop Time Status Last Admin Dose Admin Acetaminophen (Tylenol) 650 mg Q6H PRN ORAL Mild Pain/Temp > 100.5 07/16/19 07:00 08/15/19 06:59 Acetaminophen/ Hydrocodone Bitart ([place] 5/325) 1 tab Q6H PRN ORAL Severe Pain (Pain Scale 7-10) 07/16/19 07:00 07/23/19 06:59 07/18/19 07:43 Acetylcysteine (Mucomyst) 400 mg Q8HRT INH 07/16/19 07:30 08/15/19 07:29 07/18/19 07:12 Albuterol/ Ipratropium (Albuterol/ Ipratropium) 3 ml Q4HR PRN HHN shortness of breath 07/16/19 07:00 07/21/19 06:59 07/18/19 07:49 Aspirin (ASA) 81 mg DAILY ORAL 07/16/19 09:00 08/15/19 08:59 07/18/19 08:38 Budesonide (Pulmicort) 0.5 mg Q12HRT HHN 07/16/19 10:00 08/15/19 09:59 07/18/19 10:47 Dextrose (Dextrose 50%) 25 ml Q30M PRN IV Hypoglycemia 07/16/19 07:30 08/15/19 07:29 Dextrose (Dextrose 50%) 50 ml Q30M PRN IV Hypoglycemia 07/16/19 07:30 08/15/19 07:29 Diltiazem HCl (Cardizem) 30 mg Q6HR ORAL 07/16/19 18:00 08/15/19 11:59 07/18/19 05:52 Docusate Sodium (Colace) 100 mg TWICE A DAY ORAL 07/16/19 09:00 08/15/19 08:59 07/18/19 08:38 Enoxaparin Sodium (Lovenox) 40 mg EVERY 12 HOURS SUBQ 07/16/19 09:00 08/15/19 08:59 07/18/19 08:40 Gabapentin (Neurontin) 300 mg THREE TIMES A DAY ORAL 07/16/19 09:00 08/15/19 08:59 07/18/19 08:39 Guaifenesin (Robitussin) 200 mg Q4H PRN ORAL FOR COUGH 07/16/19 07:00 08/15/19 06:59 Insulin Aspart (NovoLOG) BEFORE MEALS AND HS SUBQ 07/16/19 11:30 08/15/19 11:29 07/16/19 12:36 Lorazepam (Ativan) 0.5 mg Q6H PRN ORAL For Anxiety 07/16/19 14:00 07/23/19 13:59 07/18/19 07:43 Memantine (Namenda) 5 mg BID ORAL 07/16/19 09:00 08/15/19 08:59 07/18/19 08:39 Mirtazapine (Remeron) 15 mg BEDTIME ORAL 07/16/19 21:00 08/15/19 20:59 07/17/19 21:03 Morphine Sulfate (Morphine Sulfate) 2 mg Q4H PRN IVP Severe Breakthru Pain (>7) 07/16/19 13:45 07/23/19 13:44 07/18/19 08:39 Ondansetron HCl (Zofran) 4 mg PRN PRN IVP Nausea & Vomiting 07/16/19 02:15 Pantoprazole (Protonix) 40 mg BEFORE BREAKFAST ORAL 07/17/19 06:30 08/16/19 06:29 07/18/19 05:49 Promethazine HCl/ Codeine (Phenergan with Codeine) 5 ml Q4H PRN ORAL For Cough 07/17/19 13:08 08/16/19 13:07 Sennosides (Senokot) 8.6 mg QHS ORAL 07/16/19 21:00 08/15/19 20:59 07/17/19 21:03 Sertraline HCl (Zoloft) 50 mg DAILY ORAL 07/16/19 09:00 08/15/19 08:59 07/18/19 08:39 Theophylline ([place]uma-Dur) 100 mg EVERY 12 HOURS ORAL 07/17/19 21:00 08/16/19 20:59 07/18/19 08:38 Zolpidem Tartrate (Ambien) 5 mg BEDTIME PRN ORAL Insomnia 07/16/19 07:00 07/23/19 06:59 Fartun Gan MD Jul 18, 2019 11:43
[2019-07-18] MEDS ORDERED: Naloxone 0.4mg/ml Inj IV PRN (11:45)
--- NOTE | 2019-07-18 11:59 | Diagnostic Imaging Report ---
Indication: Dyspnea Comparison: 07/15/2019 A single view chest radiograph was obtained. Findings: There is moderate prominence of pulmonary vascularity with cardiomegaly. This is advanced somewhat since the last exam. Aorta is calcified and ectatic. There is a new left perihilar infiltrate suspected currently. Please correlate clinically. Bones are osteopenic. IMPRESSION: Suspected left perihilar infiltrate. Correlate clinically. Slightly worsening CHF
[2019-07-18 12:00] VITALS: BP 115/66
--- NOTE | 2019-07-18 12:41 | Consultation ---
History of Present Illness General Date patient seen: Jul 18, 2019 Chief Complaint: Back Pain-No Injury Referring physician: Domingo Reason for Consultation: Pain Management Present Illness HPI 73 y/o F with hx of CHF, COPD, MELVIN, MDD, s/p cholecystectomy, s/p appendectomy, s/p hysterectomy, peripheral neuropathy, HTN, aspiration PNA, morbid obesity, hypothyroidism presented to ED on 07/15 with intractable back pain, congestion, cough and leukocytosis. Of note, patient was admitted here [facility] 06/24-06/27 for back pain, abd wall cellulitis and L mastitis. Denied f/c, chest pain, diarrhea, SOB, n/v/d. 06/27 Assessment: Abdominal wall cellulitis (L side) and L mastitis Abdominal pain, nausea, vomiting -06/24 CXR: Cardiomegaly and hiatal hernia. No evidence of bowel perforation. Abd US: No acute findings in the abdomen. Hepatomegaly. KUB: Nonobstructive but nonspecific bowel gas pattern. Large amount of stool may represent constipation. Back pain Afebrile No leukocytosis -06/24 Bcx NTD morbid obesity CAD/MS CHF HTN hypothryoidism hx of abdominal wall cellulitis MDD w/ psychotic features peripheral neuropathy s/p cholecystectomy s/p hysterectomy s/p appendectomy tobacco abuse HLD Dm2 COPD [place] resident Plan: -Cont IV Ancef #2 for cellulitis -f/u cx -Monitor CBC/CMP, temperatures Thank you for this consultation. Will continue to follow along with you. Discussed with RN Allergies: Coded Allergies: HALOPERIDOL (Verified Allergy, Unknown, 06/16/17) Medication History Scheduled Acetylcysteine* (Acetylcysteine*), 400 MG INH Q8HR, (Reported) Aspirin (Aspirin), 81 MG PO DAILY, (Reported) Atorvastatin Calcium* (Lipitor*), 20 MG ORAL DAILY, (Reported) Budesonide (Budesonide), 0.5 MG IH Q12HR, (Reported) Cefazolin Sodium/Dextrose,Iso (Cefazolin 1 Gm-D5w Bag), 1 GM IVPB Q8HR, ( Reported) Diltiazem Hcl (Diltiazem Hcl), 30 MG PO Q6HR, (Reported) Docusate Sodium* (Colace*), 100 MG ORAL THREE TIMES A DAY, (Reported) Docusate Sodium* (Colace*), 100 MG ORAL TWICE A DAY, (Reported) Enoxaparin* (Lovenox*), 40 MG SUBQ EVERY 12 HOURS, (Reported) Gabapentin* (Gabapentin*), 300 MG ORAL THREE TIMES A DAY, (Reported) Heparin Sod (Porcine) (Heparin Sodium*), 5,000 UNITS SUBQ EVERY 12 HOURS, ( Reported) Ipratropium/Albuterol Sulfate (DuoNeb 0.5-3(2.5)mg/3ml), 3 ML HHN Q4HR, ( Reported) Lactulose (Lactulose*), 30 ML ORAL BID, (Reported) Levothyroxine Sodium* (Synthroid*), 125 MCG ORAL DAILY, (Reported) Magnesium Hydroxide* (Milk Of Magnesia*), 30 ML ORAL DAILY, (Reported) Memantine Hcl* (Namenda*), 5 MG ORAL TWICE A DAY, (Reported) Pantoprazole* (Pantoprazole*), 40 MG ORAL BEFORE BREAKFAST, (Reported) Polyethylene Glycol 3350* (Miralax*), 17 GM ORAL BEDTIME, (Reported) Prednisone* (Prednisone*), 20 MG ORAL DAILY, (Reported) Prednisone* (Prednisone*), 20 MG ORAL DAILY, (Reported) Sennosides (Senna), 8.6 MG PO QHS, (Reported) Sertraline Hcl* (Zoloft*), 50 MG ORAL DAILY, (Reported) Scheduled PRN Acetaminophen* (Acetaminophen 325MG Tablet*), 650 MG ORAL Q6H PRN for Mild Pain/ Temp > 100.5, (Reported) Diphenhydramine Hcl* (Benadryl*), 25 MG ORAL Q6H PRN for Itching, (Reported) Guaifenesin* (Guaifenesin*), 10 ML ORAL Q4H PRN for FOR COUGH, (Reported) Hydrocodone Bit/Acetaminophen 5-325* ([place] 5-325*), 1 TAB ORAL Q6H PRN for Severe Pain (Pain Scale 7-10), (Reported) Ipratropium/Albuterol Sulfate (DuoNeb 0.5-3(2.5)mg/3ml), 3 ML HHN Q4HR PRN for shortness of breath, (Reported) Nitroglycerin 0.4MG table* (Nitroglycerin*), 0.4 MG SL .Q5MIN X 3 DOSES PRN for CHEST PAIN, (Reported) Temazepam (Restoril*), 30 MG ORAL BEDTIME PRN for Insomnia, (Reported) Zolpidem Tartrate* (Ambien*), 5 MG ORAL BEDTIME PRN for Insomnia, (Reported) Patient History Healthcare decision maker Resuscitation status Full Code Advanced Directive on File Patient History Narrative Pmhx: as above Fhx: non contriburory Shx: She is financially supported by [employer] and Medicare. She is currently living in [facility]. Financially supported by [employer] and Medicare. No known legal problems. No smoking. No alcohol. No intravenous drug use. Physical Exam Physical Exam Narrative GENERAL: Slightly anxious, O2 in place, slight short of breath in bed.. CARDIOVASCULAR: No murmur. LUNGS: Poor air exchange. ABDOMEN: Bowel sounds distant. EXTREMITIES: No cyanosis or clubbing. 1+ edema. NEUROLOGIC: The patient is moving all extremities, slightly weak. Last 24 Hour Vital Signs Date Time Temp Pulse Resp B/P (MAP) Pulse Ox O2 Delivery O2 Flow Rate FiO2 07/18/19 12:00 97.9 90 20 115/66 (82) 94 07/18/19 10:47 105 20 97 Venturi Mask 10.0 45 103 20 96 07/18/19 09:00 Venturi Mask 10.0 07/18/19 08:00 97.0 87 17 105/57 (73) 95 07/18/19 07:12 96 Venturi Mask 10.0 45 07/18/19 07:12 97 20 99 Venturi Mask 10.0 45 93 20 96 07/18/19 05:52 95 121/66 07/18/19 04:00 98.9 95 18 121/66 (84) 92 07/18/19 01:24 101 126/62 07/18/19 00:00 99.2 115 22 155/87 (109) 93 07/17/19 23:35 118 20 95 Venturi Mask 10.0 45 112 20 94 07/17/19 23:00 114 20 98 Venturi Mask 10.0 45 112 20 96 07/17/19 21:00 Venturi Mask 10.0 07/17/19 20:00 95 Venturi Mask 10.0 45 07/17/19 20:00 99.0 101 16 126/62 (83) 93 07/17/19 17:56 97 101/61 07/17/19 16:00 98.7 97 22 101/61 (74) 94 07/17/19 15:49 92 20 97 Venturi Mask 10.0 40 90 20 95 07/17/19 12:27 101 136/84 Intake and Output 07/17/19 07/18/19 19:00 07:00 Intake Total 480 ml 120 ml Output Total 800 ml Balance 480 ml -680 ml Intake Oral 480 ml Other 120 ml Output Urine Total 800 ml # Voids 2 # Bowel Movements 1 Laboratory Tests Test 07/18/19 07:55 White Blood Count 11.0 K/UL (4.8-10.8) H Red Blood Count 4.42 M/UL (4.20-5.40) Hemoglobin 13.2 G/DL (12.0-16.0) Hematocrit 39.3 % (37.0-47.0) Mean Corpuscular Volume 89 FL (80-99) Mean Corpuscular Hemoglobin 30.0 PG (27.0-31.0) Mean Corpuscular Hemoglobin Concent 33.7 G/DL (32.0-36.0) Red Cell Distribution Width 13.7 % (11.6-14.8) Platelet Count 193 K/UL (150-450) Mean Platelet Volume 5.9 FL (6.5-10.1) L Neutrophils (%) (Auto) 76.8 % (45.0-75.0) H Lymphocytes (%) (Auto) 12.1 % (20.0-45.0) L Monocytes (%) (Auto) 8.5 % (1.0-10.0) Eosinophils (%) (Auto) 1.5 % (0.0-3.0) Basophils (%) (Auto) 1.1 % (0.0-2.0) Sodium Level 140 MMOL/L (136-145) Potassium Level 4.0 MMOL/L (3.5-5.1) Chloride Level 99 MMOL/L (98-107) Carbon Dioxide Level 37 MMOL/L (21-32) H Anion Gap 4 mmol/L (5-15) L Blood Urea Nitrogen 8 mg/dL (7-18) Creatinine 0.7 MG/DL (0.55-1.30) Estimat Glomerular Filtration Rate mL/min (>60) Glucose Level 140 MG/DL (74-106) H Calcium Level 8.8 MG/DL (8.5-10.1) Total Bilirubin 0.8 MG/DL (0.2-1.0) Aspartate Amino Transf (AST/SGOT) 27 U/L (15-37) Alanine Aminotransferase (ALT/SGPT) 65 U/L (12-78) Alkaline Phosphatase 76 U/L (46-116) Pro-B-Type Natriuretic Peptide 367 pg/mL (0-125) H Total Protein 6.2 G/DL (6.4-8.2) L Albumin 2.7 G/DL (3.4-5.0) L Globulin 3.5 g/dL Albumin/Globulin Ratio 0.8 (1.0-2.7) L Height (Feet): 5 Height (Inches): 5.00 Weight (Pounds): 400 Medications Current Medications Medications (Trade) Dose Ordered Sig/Marleni Route PRN Reason Start Time Stop Time Status Last Admin Dose Admin Acetaminophen (Tylenol) 650 mg Q6H PRN ORAL Mild Pain/Temp > 100.5 07/16/19 07:00 08/15/19 06:59 Acetaminophen/ Hydrocodone Bitart ([place] 5/325) 1 tab Q6H PRN ORAL Severe Pain (Pain Scale 7-10) 07/16/19 07:00 07/23/19 06:59 07/18/19 07:43 Acetylcysteine (Mucomyst) 400 mg Q8HRT INH 07/16/19 07:30 08/15/19 07:29 07/18/19 07:12 Albuterol/ Ipratropium (Albuterol/ Ipratropium) 3 ml Q4HR PRN HHN shortness of breath 07/16/19 07:00 07/21/19 06:59 07/18/19 07:49 Aspirin (ASA) 81 mg DAILY ORAL 07/16/19 09:00 08/15/19 08:59 07/18/19 08:38 Budesonide (Pulmicort) 0.5 mg Q12HRT HHN 07/16/19 10:00 08/15/19 09:59 07/18/19 10:47 Dextrose (Dextrose 50%) 25 ml Q30M PRN IV Hypoglycemia 07/16/19 07:30 08/15/19 07:29 Dextrose (Dextrose 50%) 50 ml Q30M PRN IV Hypoglycemia 07/16/19 07:30 08/15/19 07:29 Diltiazem HCl (Cardizem) 30 mg Q6HR ORAL 07/16/19 18:00 08/15/19 11:59 07/18/19 05:52 Docusate Sodium (Colace) 100 mg TWICE A DAY ORAL 07/16/19 09:00 08/15/19 08:59 07/18/19 08:38 Enoxaparin Sodium (Lovenox) 40 mg EVERY 12 HOURS SUBQ 07/16/19 09:00 08/15/19 08:59 07/18/19 08:40 Fentanyl (Duragesic) 1 patch Q72H TDERMAL 07/18/19 11:45 07/25/19 11:44 UNV Gabapentin (Neurontin) 300 mg THREE TIMES A DAY ORAL 07/16/19 09:00 08/15/19 08:59 07/18/19 08:39 Guaifenesin (Robitussin) 200 mg Q4H PRN ORAL FOR COUGH 07/16/19 07:00 08/15/19 06:59 Insulin Aspart (NovoLOG) BEFORE MEALS AND HS SUBQ 07/16/19 11:30 08/15/19 11:29 07/16/19 12:36 Lorazepam (Ativan) 0.5 mg Q6H PRN ORAL For Anxiety 07/16/19 14:00 07/23/19 13:59 07/18/19 07:43 Memantine (Namenda) 5 mg BID ORAL 07/16/19 09:00 08/15/19 08:59 07/18/19 08:39 Mirtazapine (Remeron) 15 mg BEDTIME ORAL 07/16/19 21:00 08/15/19 20:59 07/17/19 21:03 Miscellaneous Medication (fentaNYL Destruction) 1 ea Q72H MISC 07/18/19 11:45 08/17/19 11:44 UNV Morphine Sulfate (Morphine Sulfate) 2 mg Q4H PRN IVP Severe Breakthru Pain (>7) 07/16/19 13:45 07/23/19 13:44 07/18/19 08:39 Naloxone HCl (Narcan) 0.1 mg PRN IV Sedation scale 3 or 4 07/18/19 11:45 UNV Ondansetron HCl (Zofran) 4 mg PRN PRN IVP Nausea & Vomiting 07/16/19 02:15 Pantoprazole (Protonix) 40 mg BEFORE BREAKFAST ORAL 07/17/19 06:30 08/16/19 06:29 07/18/19 05:49 Promethazine HCl/ Codeine (Phenergan with Codeine) 5 ml Q4H PRN ORAL For Cough 07/17/19 13:08 08/16/19 13:07 Sennosides (Senokot) 8.6 mg QHS ORAL 07/16/19 21:00 08/15/19 20:59 07/17/19 21:03 Sertraline HCl (Zoloft) 50 mg DAILY ORAL 07/16/19 09:00 08/15/19 08:59 07/18/19 08:39 Theophylline ([place]-Dur) 100 mg EVERY 12 HOURS ORAL 07/17/19 21:00 08/16/19 20:59 07/18/19 08:38 Zolpidem Tartrate (Ambien) 5 mg BEDTIME PRN ORAL Insomnia 07/16/19 07:00 07/23/19 06:59 Assessment/Plan Assessment/Plan: Abx: none Assessment: Sepsis Early PNA -07/18 CXR: Suspected left perihilar infiltrate. Correlate clinically. Slightly worsening CH -07/15 CXR: Limited hypoventilatory exam. Prominence of the central bronchovascular structures may be in part due to low lung volumes. Leukocytosis, improving Afebrile REcent Abdominal wall cellulitis (L side) and L mastitis; still ongoing CHF exacerbation Intractable Back pain MELVIN hx of aspiration PNA morbid obesity CAD/MS CHF HTN hypothryoidism hx of abdominal wall cellulitis MDD w/ psychotic features peripheral neuropathy s/p cholecystectomy s/p hysterectomy s/p appendectomy tobacco abuse HLD Dm2 COPD [place] resident VRE and MRSA colonized Plan: -Start empiric IV Vancomycin and Ceftriaxone for PNA and cellulitis -f/u cx -Monitor CBC/CMP, temperatares -sp cx, influenza sc -aspiration precautions Thank you for consulting [facility]. Will continue to follow along with you. Discussed with Ange Salamanca M.D. Jul 18, 2019 12:41
--- NOTE | 2019-07-18 13:15 | General Progress Note ---
Assessment/Plan Problem List: (1) HTN (hypertension) ICD Codes: I10 - Essential (primary) hypertension SNOMED: 82033841 (2) COPD (chronic obstructive pulmonary disease) ICD Codes: J44.9 - Chronic obstructive pulmonary disease, unspecified SNOMED: 85635910 (3) Hypothyroidism ICD Codes: E03.9 - Hypothyroidism, unspecified SNOMED: 03847048 (4) Peripheral edema ICD Codes: R60.9 - Edema, unspecified SNOMED: 259422209 Status: unchanged Assessment/Plan: pt dit o2 pulm tx bp bs control cbc bmp in am aru eval Subjective Constitutional: Reports: weakness Allergies: Coded Allergies: HALOPERIDOL (Verified Allergy, Unknown, 06/16/17) All Systems: reviewed and negative except above Subjective o2mask, c/o lbp Objective Last 24 Hour Vital Signs Date Time Temp Pulse Resp B/P (MAP) Pulse Ox O2 Delivery O2 Flow Rate FiO2 07/18/19 12:41 90 115/66 07/18/19 12:00 97.9 90 20 115/66 (82) 94 07/18/19 10:47 105 20 97 Venturi Mask 10.0 45 103 20 96 07/18/19 09:00 Venturi Mask 10.0 07/18/19 08:00 97.0 87 17 105/57 (73) 95 07/18/19 07:12 96 Venturi Mask 10.0 45 07/18/19 07:12 97 20 99 Venturi Mask 10.0 45 93 20 96 07/18/19 05:52 95 121/66 07/18/19 04:00 98.9 95 18 121/66 (84) 92 07/18/19 01:24 101 126/62 07/18/19 00:00 99.2 115 22 155/87 (109) 93 07/17/19 23:35 118 20 95 Venturi Mask 10.0 45 112 20 94 07/17/19 23:00 114 20 98 Venturi Mask 10.0 45 112 20 96 07/17/19 21:00 Venturi Mask 10.0 07/17/19 20:00 95 Venturi Mask 10.0 45 07/17/19 20:00 99.0 101 16 126/62 (83) 93 07/17/19 17:56 97 101/61 07/17/19 16:00 98.7 97 22 101/61 (74) 94 07/17/19 15:49 92 20 97 Venturi Mask 10.0 40 90 20 95 Intake and Output 07/17/19 07/18/19 19:00 07:00 Intake Total 480 ml 120 ml Output Total 800 ml Balance 480 ml -680 ml Intake Oral 480 ml Other 120 ml Output Urine Total 800 ml # Voids 2 # Bowel Movements 1 Laboratory Tests 07/18/19 07:55: White Blood Count 11.0H, Red Blood Count 4.42, Hemoglobin 13.2, Hematocrit 39.3 , Mean Corpuscular Volume 89, Mean Corpuscular Hemoglobin 30.0, Mean Corpuscular Hemoglobin Concent 33.7, Red Cell Distribution Width 13.7, Platelet Count 193, Mean Platelet Volume 5.9L, Neutrophils (%) (Auto) 76.8H, Lymphocytes (%) (Auto) 12.1L, Monocytes (%) (Auto) 8.5, Eosinophils (%) (Auto) 1.5, Basophils (%) (Auto) 1.1, Sodium Level 140, Potassium Level 4.0, Chloride Level 99, Carbon Dioxide Level 37H, Anion Gap 4L, Blood Urea Nitrogen 8, Creatinine 0.7, Estimat Glomerular Filtration Rate , Glucose Level 140H, Calcium Level 8.8 , Total Bilirubin 0.8, Aspartate Amino Transf (AST/SGOT) 27, Alanine Aminotransferase (ALT/SGPT) 65, Alkaline Phosphatase 76, Pro-B-Type Natriuretic Peptide 367H, Total Protein 6.2L, Albumin 2.7L, Globulin 3.5, Albumin/Globulin Ratio 0.8L Height (Feet): 5 Height (Inches): 5.00 Weight (Pounds): 400 General Appearance: lethargic EENT: normal ENT inspection Neck: normal alignment Cardiovascular: normal peripheral pulses, normal rate, regular rhythm Respiratory/Chest: chest wall non-tender, lungs clear, normal breath sounds Abdomen: normal bowel sounds, non tender, soft Extremities: normal inspection Edema: no edema noted Arm (L), no edema noted Arm (R), no edema noted Leg (L), no edema noted Leg (R), no edema noted Pedal (L), no edema noted Pedal (R), no edema noted Generalized Neurologic: responsive, motor weakness Skin: normal pigmentation, warm/dry Bill Lane DO Jul 18, 2019 13:15
[2019-07-18] MEDS: cefTRIAXone 1 GM in D5W 55 ML IVPB SCH (14:15)
[2019-07-18] MEDS: Vancomycin 1.5gm/NS Premix q24h IVPB SCH (15:11)
[2019-07-18 15:40] VITALS: BP 104/65
--- NOTE | 2019-07-18 15:46 | NUR ---
NURSE NOTES: PT POSITIVE FOR MRSA NARES AND VRE RECTUM. DR NOVOA SAW PT AT BEDSIDE WITH NEW ORDERS FOR IV ANTIBIOTICS.
--- NOTE | 2019-07-18 16:45 | Progress Note ---
DATE: 07/18/2019 SUBJECTIVE: This is a 73-year-old female patient. She still has lot of psychomotor agitation, irritability, and mood lability worsened by stress of her medical illness that is why her attending physician has requested daily psychiatric consultation. MENTAL STATUS EXAMINATION: This is a 73-year-old female. Appearance is disheveled. Attitude, irritable and agitated. Affect, guarded and restricted. Intellect poor. Mood, depressed and anxious. Motor activity, psychomotor agitation. Attention span is poor. Orientation x2. Speech is pressured. Thought process, disorganized and illogical. Insight and judgment is poor. DIAGNOSIS: Paranoid schizophrenia acute exacerbation. PLAN: Plan for this patient is to treat with medication regimen consisting of Zoloft 50 mg a day, Remeron 15 at bedtime, Ativan 0.5 mg every 6 hours p.r.n. anxiety and agitation, Neurontin 300 mg three times a day, and Namenda 5 twice a day. A 20 minutes of cognitive behavioral therapy to help her identify her automatic negative thoughts and help convert those negative thoughts to more positive thoughts to reduce depression, anxiety, mood lability. Chart reviewed and discussed with staff. Seen and assessed at bedside. Filipe Yen M.D. DR: Shine JOB#: [id number] CC:
--- NOTE | 2019-07-18 17:32 | Cardiology Progress Note ---
Assessment/Plan Assessment/Plan [id number] Objective Last 24 Hour Vital Signs Date Time Temp Pulse Resp B/P (MAP) Pulse Ox O2 Delivery O2 Flow Rate FiO2 07/18/19 17:11 107 104/65 07/18/19 15:40 98.1 107 20 104/65 (78) 98 07/18/19 14:12 106 20 98 Venturi Mask 10.0 45 110 20 95 07/18/19 12:41 90 115/66 07/18/19 12:00 97.9 90 20 115/66 (82) 94 07/18/19 10:47 105 20 97 Venturi Mask 10.0 45 103 20 96 07/18/19 09:00 Venturi Mask 10.0 07/18/19 08:00 97.0 87 17 105/57 (73) 95 07/18/19 07:12 96 Venturi Mask 10.0 45 07/18/19 07:12 97 20 99 Venturi Mask 10.0 45 93 20 96 07/18/19 05:52 95 121/66 07/18/19 04:00 98.9 95 18 121/66 (84) 92 07/18/19 01:24 101 126/62 07/18/19 00:00 99.2 115 22 155/87 (109) 93 07/17/19 23:35 118 20 95 Venturi Mask 10.0 45 112 20 94 07/17/19 23:00 114 20 98 Venturi Mask 10.0 45 112 20 96 07/17/19 21:00 Venturi Mask 10.0 07/17/19 20:00 95 Venturi Mask 10.0 45 07/17/19 20:00 99.0 101 16 126/62 (83) 93 07/17/19 17:56 97 101/61 Intake and Output 07/17/19 07/18/19 19:00 07:00 Intake Total 480 ml 120 ml Output Total 800 ml Balance 480 ml -680 ml Intake Oral 480 ml Other 120 ml Output Urine Total 800 ml # Voids 2 # Bowel Movements 1 Laboratory Tests Test 07/18/19 07:55 White Blood Count 11.0 K/UL (4.8-10.8) H Red Blood Count 4.42 M/UL (4.20-5.40) Hemoglobin 13.2 G/DL (12.0-16.0) Hematocrit 39.3 % (37.0-47.0) Mean Corpuscular Volume 89 FL (80-99) Mean Corpuscular Hemoglobin 30.0 PG (27.0-31.0) Mean Corpuscular Hemoglobin Concent 33.7 G/DL (32.0-36.0) Red Cell Distribution Width 13.7 % (11.6-14.8) Platelet Count 193 K/UL (150-450) Mean Platelet Volume 5.9 FL (6.5-10.1) L Neutrophils (%) (Auto) 76.8 % (45.0-75.0) H Lymphocytes (%) (Auto) 12.1 % (20.0-45.0) L Monocytes (%) (Auto) 8.5 % (1.0-10.0) Eosinophils (%) (Auto) 1.5 % (0.0-3.0) Basophils (%) (Auto) 1.1 % (0.0-2.0) Sodium Level 140 MMOL/L (136-145) Potassium Level 4.0 MMOL/L (3.5-5.1) Chloride Level 99 MMOL/L (98-107) Carbon Dioxide Level 37 MMOL/L (21-32) H Anion Gap 4 mmol/L (5-15) L Blood Urea Nitrogen 8 mg/dL (7-18) Creatinine 0.7 MG/DL (0.55-1.30) Estimat Glomerular Filtration Rate mL/min (>60) Glucose Level 140 MG/DL (74-106) H Calcium Level 8.8 MG/DL (8.5-10.1) Total Bilirubin 0.8 MG/DL (0.2-1.0) Aspartate Amino Transf (AST/SGOT) 27 U/L (15-37) Alanine Aminotransferase (ALT/SGPT) 65 U/L (12-78) Alkaline Phosphatase 76 U/L (46-116) Pro-B-Type Natriuretic Peptide 367 pg/mL (0-125) H Total Protein 6.2 G/DL (6.4-8.2) L Albumin 2.7 G/DL (3.4-5.0) L Globulin 3.5 g/dL Albumin/Globulin Ratio 0.8 (1.0-2.7) L Microbiology Date/Time Source Procedure Growth Status 07/18/19 16:00 Nasopharynx - Final Complete 07/18/19 16:00 Nasopharynx - Final Complete 07/17/19 16:30 Sputum Gram Stain - Final Resulted 07/17/19 16:30 Sputum Sputum Culture Pending Resulted 07/15/19 23:30 Nasal Nares MRSA Culture - Final Staphylococcus Aureus - Mrsa Complete 07/15/19 23:30 Rectum - Final NO CARBAPENEM-RESISTANT ENTEROBACTERI... Complete 07/15/19 23:30 Rectum VRE Culture - Final Enterococcus Faecium - Vre Complete Josesito Paulino MD Jul 18, 2019 17:32
--- NOTE | 2019-07-18 19:17 | NUR ---
HAND-OFF: Report given to David HUTSON RN.
--- NOTE | 2019-07-18 19:24 | NUR ---
NURSE NOTES: Received patient asleep in bed, easily arousable. Venturi mask in place, respirations unlabored, no s/s of acute distress. IV access patent running TKO 5ml, site asymptomatic. Patient dry, purewick in place.
[2019-07-18 20:00] VITALS: BP 136/89
[2019-07-18] MEDS: Sennosides 8.6mg tab ORAL SCH (20:17)
--- NOTE | 2019-07-18 22:30 | Consultation ---
DATE OF CONSULTATION: 07/18/2019 CARDIAC CONSULTATION CONSULTING PHYSICIAN: Josesito Paulino M.D. REFERRING PHYSICIAN: Bill Lane D.O. REASON FOR REFERRAL: Hypertension. HISTORY OF PRESENT ILLNESS: I was called a few days ago in regard to the patient's elevated blood pressure. Medications were reviewed. Medication was adjusted. The patient has now been followed up. The patient has history of multiple medical problems as delineated below. She was admitted to the hospital because of shortness of breath and as mentioned, some significant elevated blood pressure readings and therefore, this consultation was requested. She does have shortness of breath. She is not active. She is in the bed most of the time. She has shortness of breath with minimal activity in the bed. She has shortness of breath that wakes her up at night and she has palpitations at times. No dizziness on standing because she does not really stand. She has no pain in the chest, but she has occasional burning in the stomach as well. PAST MEDICAL HISTORY: From prior hospitalization and discharge summaries were collected and include history of abdominal wall cellulitis, mastitis, abdominal pain with nausea and vomiting, constipation, morbid obesity, history of coronary artery disease/DE of unknown details, hypertension, hypothyroidism, peripheral neuropathy, lumbar degenerative joint disease, spondylosis, radiculopathy as well as diabetes mellitus and COPD. She was also felt to have multifocal atrial tachycardia secondary to underlying COPD. Previously has had normal left ventricular systolic function. She also has obesity hypoventilation and that was suspected as well. She has history of schizophrenia as well as reported history of some kind of heart failure, but as mentioned previously, echocardiogram was showing normal ejection fraction. The patient has had hospitalization at [facility] back in June 2019, and she was felt to have had atrial fibrillation with rapid ventricular response. There are no electrocardiograms for review in this chart at this time. MEDICATIONS: At this time include ceftriaxone, vancomycin, aspirin 81 mg, Pulmicort, Cardizem 30 mg q.6 hours, Colace, DuoNebs, Lovenox, fentanyl patch, gabapentin, [place], insulin sliding scale, Namenda, Remeron as well as morphine and Protonix, promethazine, Zoloft 50 mg, and theophylline every 12 hours as well as Ambien. ALLERGIES: She is allergic to Haldol. SOCIAL HISTORY: She smoked for many years, one pack per day. She does not drink alcoholic beverages or use drugs. REVIEW OF SYSTEMS: GASTROINTESTINAL: Positive for nausea and vomiting. No diarrhea. She has constipation. No black or bloody stools. GENITOURINARY: Negative. PULMONARY: Positive for coughing and wheezing. CONSTITUTIONAL: She feels chills. No fevers. NEUROLOGIC: She is not ambulatory. PHYSICAL EXAMINATION: GENERAL: Shows a morbidly obese elderly female, on a face mask oxygen supplementation, respiratory distress. VITAL SIGNS: Blood pressure has been 104/65 to 115/66. She has had readings as low as 97/59 and as high as 155/87. NECK: Supple. LUNGS: To the extent able to examine posteriorly and laterally, appears to have some rhonchi. No wheezes at this time. CARDIAC: Regular rate and rhythm. No heaves or thrills. ABDOMEN: Soft, obese. Positive bowel sounds. EXTREMITIES: There is no edema. NEUROLOGICAL: She is awake, alert, and responsive. LABORATORY AND DIAGNOSTIC DATA: White count of 11, hemoglobin 13.2, and platelet count 193,000. Chemistries, sodium 140, potassium 4.0, chloride 99, bicarb 37, BUN of 8, creatinine 0.7, and glucose of 140. ProBNP only 367. Albumin of 3.7. TSH not checked. Her chest x-ray most recently showed on the , today, that she has left perihilar infiltrate and possibly some worsening congestive heart failure, at least according to the chest x-ray. ASSESSMENT AND PLAN: Dr. Lane, this patient was seen in cardiac consultation. The patient has been started on some Cardizem. I will cut the dose of that medication down to twice a day. An EKG will be ordered for further evaluation of her rhythm. She has had some atrial fibrillation before according to the [facility] records. I do not see her being on any anticoagulation at this time and I am certainly not sure how accurate that history is just on that history and physical from the other hospital. She has never had that on any of the hospitalizations here at the [facility] and it is possible that anticoagulation may not be indicated. EKG will be ordered. Further recommendations as become necessary. Josesito Paulino M.D. DR: Cole JOB#: [id number] CC:
[2019-07-19] VITALS: BP 124/70
[2019-07-19] MEDS: Vancomycin 1.5gm/NS Premix q24h IVPB SCH (02:17)
[2019-07-19] MEDS: Albuterol/Ipratropium 3ml neb HHN PRN ×4 (02:54→23:50)
[2019-07-19] MEDS: Morphine Sulfate 2mg/ml Inj(IV/IM USE ONLY) IVP PRN ×3 (03:13→14:46)
[2019-07-19] MEDS: LORazepam 0.5mg tab ORAL PRN ×3 (03:19→18:02)
[2019-07-19 04:00] VITALS: BP 120/61
--- NOTE | 2019-07-19 05:50 | NUR ---
NURSE NOTES: Patient asked for PRN breathing treatment. Called RT, to be endorsed to oncoming RT shift.
[2019-07-19] MEDS: NovoLOG Insulin Flexpen SUBQ SCH ×4 (06:22→21:00)
--- NOTE | 2019-07-19 07:19 | NUR ---
HAND-OFF: Report given to JAMEE Hernandez.
[2019-07-19 08:00] VITALS: BP 128/73
[2019-07-19 08:21] LABS: BASOPHILS % (AUTO) 0.8 % (0.0-2.0); EOSINOPHILS % (AUTO) 0.5 % (0.0-3.0); HEMATOCRIT 40.1 % (37.0-47.0); HEMOGLOBIN 13.7 G/DL (12.0-16.0); LYMPHOCYTES % (AUTO) 7.3 % (20.0-45.0); MEAN CORPUSCULAR VOLUME 88 FL (80-99); MONOCYTES % (AUTO) 8.9 % (1.0-10.0); NEUTROPHILS % (AUTO) 82.5 % (45.0-75.0); PLATELET COUNT 215 K/UL (150-450); RED BLOOD COUNT 4.57 M/UL (4.20-5.40); RED CELL DISTRIBUTION WIDTH 13.4 % (11.6-14.8); WHITE BLOOD COUNT 12.7 K/UL (4.8-10.8)
[2019-07-19 08:36] LABS: ANION GAP 6 mmol/L (5-15); BLOOD UREA NITROGEN 8 mg/dL (7-18); CARBON DIOXIDE 34 MMOL/L (21-32); CHLORIDE 98 MMOL/L (98-107); CREATININE 0.6 MG/DL (0.55-1.30); POTASSIUM 4.1 MMOL/L (3.5-5.1); SODIUM 138 MMOL/L (136-145)
--- NOTE | 2019-07-19 09:03 | General Progress Note ---
Assessment/Plan Assessment/Plan: (1) Morbid obesity (2) Lumbago (3) Peripheral neuropathy (4) COPD (5) CHF Patient will be continued on [place] and Morphine D/w Dr. Hicks and he concurred. Subjective Date patient seen: Jul 19, 2019 Time patient seen: 07:45 - am Allergies: Coded Allergies: HALOPERIDOL (Verified Allergy, Unknown, 06/16/17) Subjective Constitutional: Reports: weakness HEENT: Reports: no symptoms Cardiovascular: Reports: no symptoms Respiratory: Reports: shortness of breath Gastrointestinal/Abdominal: Reports: no symptoms Genitourinary: Reports: no symptoms Neurologic/Psychiatric: Reports: no symptoms Endocrine: Reports: no symptoms Hematologic/Lymphatic: Reports: no symptoms Subjective Patient pain has been stable and tolerated on the Cast[place] and Morphine. No new complaints at this time. Objective Last 24 Hour Vital Signs Date Time Temp Pulse Resp B/P (MAP) Pulse Ox O2 Delivery O2 Flow Rate FiO2 07/19/19 04:00 98.1 101 24 120/61 (80) 98 07/19/19 03:43 99.0 07/19/19 02:55 111 22 98 Venturi Mask 12.0 50 109 24 96 07/19/19 00:00 99.0 80 24 124/70 (88) 98 07/18/19 23:31 107 20 98 Venturi Mask 12.0 50 104 22 97 07/18/19 22:09 109 22 97 Venturi Mask 12.0 50 107 24 96 07/18/19 21:46 Venturi Mask 10.0 07/18/19 20:00 99.0 110 25 136/89 (105) 98 07/18/19 20:00 93 Venturi Mask 12.0 50 07/18/19 18:40 107 104/65 07/18/19 17:11 107 104/65 07/18/19 15:40 98.1 107 20 104/65 (78) 98 07/18/19 14:12 106 20 98 Venturi Mask 10.0 45 110 20 95 07/18/19 12:41 90 115/66 07/18/19 12:00 97.9 90 20 115/66 (82) 94 07/18/19 10:47 105 20 97 Venturi Mask 10.0 45 103 20 96 Intake and Output 07/18/19 07/19/19 19:00 07:00 Intake Total 1310.0 ml Output Total 600 ml Balance 1310.0 ml -600 ml Intake Oral 980 ml IV Total 330.0 ml Output Urine Total 600 ml # Voids 4 Laboratory Tests 07/19/19 07:30: White Blood Count 12.7H, Red Blood Count 4.57, Hemoglobin 13.7, Hematocrit 40.1 , Mean Corpuscular Volume 88, Mean Corpuscular Hemoglobin 30.1, Mean Corpuscular Hemoglobin Concent 34.3, Red Cell Distribution Width 13.4, Platelet Count 215, Mean Platelet Volume 5.7L, Neutrophils (%) (Auto) 82.5H, Lymphocytes (%) (Auto) 7.3L, Monocytes (%) (Auto) 8.9, Eosinophils (%) (Auto) 0.5, Basophils (%) (Auto) 0.8, Sodium Level 138, Potassium Level 4.1, Chloride Level 98, Carbon Dioxide Level 34H, Anion Gap 6, Blood Urea Nitrogen 8, Creatinine 0.6 , Estimat Glomerular Filtration Rate , Glucose Level 134H, Calcium Level 9.0 Height (Feet): 5 Height (Inches): 5.00 Weight (Pounds): 398 Objective General Appearance: no apparent distress, alert EENT: PERRL/EOMI, normal ENT inspection Neck: non-tender, normal alignment Cardiovascular: normal rate, regular rhythm Respiratory/Chest: decreased breath sounds Abdomen: non tender, soft Edema: mild edema Neurologic: alert, oriented x 3 Skin: warm/dry David Odom Jul 19, 2019 09:03
[2019-07-19] MEDS: Theophylline ER 100mg ORAL SCH ×2 (09:11→22:06)
[2019-07-19] MEDS: Sertraline 50mg tab ORAL SCH (09:11)
[2019-07-19] MEDS: Docusate 100mg cap ORAL SCH ×2 (09:11→17:22)
[2019-07-19] MEDS: Memantine 5 MG TAB ORAL SCH ×2 (09:11→17:22)
[2019-07-19] MEDS: dilTIAZem HCl 30mg tab ORAL SCH ×2 (09:12→17:23)
[2019-07-19] MEDS: Aspirin Baby 81mg ORAL SCH (09:12)
[2019-07-19] MEDS: Enoxaparin 40mg Inj SUBQ SCH (09:13)
--- NOTE | 2019-07-19 09:46 | NUR ---
NURSE NOTES: pt in bed with ventri mask @10L. Breathing regular and unlabored. pain med given as needed. HOB elevated. bed in lowest position. call light within reach at all time. will continue to monitor
--- NOTE | 2019-07-19 09:55 | NUR ---
PT EVALUATION/DISCHARGE NOTE Patient seen for PT evaluation. Patient dependent with all functional mobility, at baseline level of function. Skilled inpatient PT intervention not indicated, patient discharged from PT, Mary MANCUSO notified. Addendum: 07/19/19 at 1250 by SHAY CAMPOS PT Amended: Links added.
[2019-07-19] MEDS: Budesonide HHN 0.25mg/2ml ud HHN SCH ×2 (10:02→21:40)
--- NOTE | 2019-07-19 10:15 | General Progress Note ---
Assessment/Plan Problem List: (1) HTN (hypertension) ICD Codes: I10 - Essential (primary) hypertension SNOMED: 63149963 (2) COPD (chronic obstructive pulmonary disease) ICD Codes: J44.9 - Chronic obstructive pulmonary disease, unspecified SNOMED: 39130839 (3) Hypothyroidism ICD Codes: E03.9 - Hypothyroidism, unspecified SNOMED: 77929666 (4) Peripheral edema ICD Codes: R60.9 - Edema, unspecified SNOMED: 366899442 Status: unchanged Assessment/Plan: pt dit o2 pulm tx bp bs control cbc bmp in am Subjective Constitutional: Reports: weakness Allergies: Coded Allergies: HALOPERIDOL (Verified Allergy, Unknown, 06/16/17) All Systems: reviewed and negative except above Subjective o2mask, c/o lbp Objective Last 24 Hour Vital Signs Date Time Temp Pulse Resp B/P (MAP) Pulse Ox O2 Delivery O2 Flow Rate FiO2 07/19/19 09:42 98.1 07/19/19 09:12 82 128/73 07/19/19 09:00 Venturi Mask 10.0 07/19/19 08:10 104 22 96 Venturi Mask 12.0 50 102 22 94 07/19/19 08:00 99.0 82 21 128/73 (91) 94 07/19/19 07:59 94 Venturi Mask 12.0 50 07/19/19 04:00 98.1 101 24 120/61 (80) 98 07/19/19 02:55 111 22 98 Venturi Mask 12.0 50 109 24 96 07/19/19 00:00 99.0 80 24 124/70 (88) 98 07/18/19 23:31 107 20 98 Venturi Mask 12.0 50 104 22 97 07/18/19 22:09 109 22 97 Venturi Mask 12.0 50 107 24 96 07/18/19 21:46 Venturi Mask 10.0 07/18/19 20:00 99.0 110 25 136/89 (105) 98 07/18/19 20:00 93 Venturi Mask 12.0 50 07/18/19 18:40 107 104/65 07/18/19 17:11 107 104/65 07/18/19 15:40 98.1 107 20 104/65 (78) 98 07/18/19 14:12 106 20 98 Venturi Mask 10.0 45 110 20 95 2/4/20 12:41 90 115/66 07/18/19 12:00 97.9 90 20 115/66 (82) 94 07/18/19 10:47 105 20 97 Venturi Mask 10.0 45 103 20 96 Intake and Output 07/18/19 07/19/19 19:00 07:00 Intake Total 1310.0 ml Output Total 600 ml Balance 1310.0 ml -600 ml Intake Oral 980 ml IV Total 330.0 ml Output Urine Total 600 ml # Voids 4 Laboratory Tests 07/19/19 07:30: White Blood Count 12.7H, Red Blood Count 4.57, Hemoglobin 13.7, Hematocrit 40.1 , Mean Corpuscular Volume 88, Mean Corpuscular Hemoglobin 30.1, Mean Corpuscular Hemoglobin Concent 34.3, Red Cell Distribution Width 13.4, Platelet Count 215, Mean Platelet Volume 5.7L, Neutrophils (%) (Auto) 82.5H, Lymphocytes (%) (Auto) 7.3L, Monocytes (%) (Auto) 8.9, Eosinophils (%) (Auto) 0.5, Basophils (%) (Auto) 0.8, Sodium Level 138, Potassium Level 4.1, Chloride Level 98, Carbon Dioxide Level 34H, Anion Gap 6, Blood Urea Nitrogen 8, Creatinine 0.6 , Estimat Glomerular Filtration Rate , Glucose Level 134H, Calcium Level 9.0 Height (Feet): 5 Height (Inches): 5.00 Weight (Pounds): 398 General Appearance: lethargic EENT: normal ENT inspection Neck: normal alignment Cardiovascular: normal peripheral pulses, normal rate, regular rhythm Respiratory/Chest: chest wall non-tender, lungs clear, normal breath sounds Abdomen: normal bowel sounds, non tender, soft Extremities: normal inspection Edema: no edema noted Arm (L), no edema noted Arm (R), no edema noted Leg (L), no edema noted Leg (R), no edema noted Pedal (L), no edema noted Pedal (R), no edema noted Generalized Neurologic: responsive, motor weakness Skin: normal pigmentation, warm/dry Bill Lane DO Jul 19, 2019 10:15
--- NOTE | 2019-07-19 10:41 | NUR ---
CASE MANAGEMENT:DISCHARGE PLAN FOLLOW UP FOLLOW UP CALL TO [facility] SPOKE WITH TAURUS. STATES DON WILL REVIEW CLINICALS AND CALL BACK WITH ANSWER IN RE TO ACCEPTANCE Addendum: 07/19/19 at 1254 by EZRA SALCEDO LVN LVN FOLLOW UP TO [facility]. PER GRISEL, PATIENT ACCEPTED TO RETURN. 8-A SKILLED Addendum: 07/19/19 at 1546 by EZRA SALCEDO LVN LVN PATIENT CLEARED FOR DISCHARGE TRANSPORTATION SCHEDULED WITH [facility] @ EXT [id number] WITH AN ETA @ 1630 PM PRE DILSHAD
--- NOTE | 2019-07-19 11:56 | Pulmonology Progress Note ---
Assessment/Plan Assessment/Plan ASSESSMENT Intractable back pain COPD probably PNA pleuritic CP MELVIN Hypertension History of smoking Morbid obesity Peripheral neuropathy Hypertension Hypothyroidism Peripheral edema Diabetes mellitus Schizophrenia PLAN OF CARE MS floor O2 HHN PRN continue budesonide inhaler trial of theophylline antitussive prn CXR noted : Suspected left perihilar infiltrate. slightly worsening CHF SCX if able abx as per ID , Venous Duplex BLE check troponin and ECG DVT prophylaxis BiPAP at night + PRN BP management with Cardizem BS management with SSRI pain management as per pain specialist recommendation GI prophylaxis PT case discussed and evaluated by supervising physician Subjective Allergies: Coded Allergies: HALOPERIDOL (Verified Allergy, Unknown, 06/16/17) Subjective reports chest pain with deep breathing leukocytosis worse today CXR 07/18 with suspected left perihilar infiltrate. Objective Last 24 Hour Vital Signs Date Time Temp Pulse Resp B/P (MAP) Pulse Ox O2 Delivery O2 Flow Rate FiO2 07/19/19 10:17 101 20 98 Venturi Mask 12.0 50 102 20 96 07/19/19 09:42 98.1 07/19/19 09:12 82 128/73 07/19/19 09:00 Venturi Mask 10.0 07/19/19 08:15 104 22 96 Venturi Mask 12.0 50 102 22 94 07/19/19 08:10 104 22 96 Venturi Mask 12.0 50 102 22 94 07/19/19 08:00 99.0 82 21 128/73 (91) 94 07/19/19 07:59 94 Venturi Mask 12.0 50 07/19/19 04:00 98.1 101 24 120/61 (80) 98 07/19/19 02:55 111 22 98 Venturi Mask 12.0 50 109 24 96 07/19/19 00:00 99.0 80 24 124/70 (88) 98 07/18/19 23:31 107 20 98 Venturi Mask 12.0 50 104 22 97 07/18/19 22:09 109 22 97 Venturi Mask 12.0 50 107 24 96 07/18/19 21:46 Venturi Mask 10.0 07/18/19 20:00 99.0 110 25 136/89 (105) 98 07/18/19 20:00 93 Venturi Mask 12.0 50 07/18/19 18:40 107 104/65 07/18/19 17:11 107 104/65 2/4/20 15:40 98.1 107 20 104/65 (78) 98 07/18/19 14:12 106 20 98 Venturi Mask 10.0 45 110 20 95 07/18/19 12:41 90 115/66 07/18/19 12:00 97.9 90 20 115/66 (82) 94 Intake and Output 07/18/19 07/19/19 19:00 07:00 Intake Total 1310.0 ml Output Total 600 ml Balance 1310.0 ml -600 ml Intake Oral 980 ml IV Total 330.0 ml Output Urine Total 600 ml # Voids 4 General Appearance: no acute distress, other - awake, alert, oriented morbidly obese female HEENT: normocephalic, atraumatic, anicteric, mucous membranes moist Respiratory/Chest: no accessory muscle use, crackles/rales - scattered crackles at bases Cardiovascular: normal rate, regular rhythm Abdomen: soft, non tender - obese Extremities: other - +1-2 BLE edema Neurologic/Psychiatric: abnormal gait, alert, oriented x 3, responsive Microbiology Date/Time Source Procedure Growth Status 07/18/19 16:00 Nasopharynx - Final Complete 07/18/19 16:00 Nasopharynx - Final Complete 07/17/19 16:30 Sputum Gram Stain - Final Complete 07/17/19 16:30 Sputum Sputum Culture - Final NORMAL UPPER RESPIRATORY KEELY PRESENT Complete Laboratory Tests 07/19/19 07:30: White Blood Count 12.7H, Red Blood Count 4.57, Hemoglobin 13.7, Hematocrit 40.1 , Mean Corpuscular Volume 88, Mean Corpuscular Hemoglobin 30.1, Mean Corpuscular Hemoglobin Concent 34.3, Red Cell Distribution Width 13.4, Platelet Count 215, Mean Platelet Volume 5.7L, Neutrophils (%) (Auto) 82.5H, Lymphocytes (%) (Auto) 7.3L, Monocytes (%) (Auto) 8.9, Eosinophils (%) (Auto) 0.5, Basophils (%) (Auto) 0.8, Sodium Level 138, Potassium Level 4.1, Chloride Level 98, Carbon Dioxide Level 34H, Anion Gap 6, Blood Urea Nitrogen 8, Creatinine 0.6 , Estimat Glomerular Filtration Rate , Glucose Level 134H, Calcium Level 9.0 Current Medications Medications (Trade) Dose Ordered Sig/Marleni Route PRN Reason Start Time Stop Time Status Last Admin Dose Admin Acetaminophen (Tylenol) 650 mg Q6H PRN ORAL Mild Pain/Temp > 100.5 07/16/19 07:00 08/15/19 06:59 Acetaminophen/ Hydrocodone Bitart (Bradley 5/325) 1 tab Q6H PRN ORAL Severe Pain (Pain Scale 7-10) 07/16/19 07:00 07/23/19 06:59 07/18/19 07:43 Acetylcysteine (Mucomyst) 400 mg Q8HRT INH 07/16/19 07:30 08/15/19 07:29 07/19/19 08:00 Albuterol/ Ipratropium (Albuterol/ Ipratropium) 3 ml Q4HR PRN HHN shortness of breath 07/16/19 07:00 07/21/19 06:59 07/19/19 07:59 Aspirin (ASA) 81 mg DAILY ORAL 07/16/19 09:00 08/15/19 08:59 07/19/19 09:12 Budesonide (Pulmicort) 0.5 mg Q12HRT HHN 07/16/19 10:00 08/15/19 09:59 07/19/19 10:02 Ceftriaxone Sodium 1 gm/ Dextrose 55 ml @ 110 mls/hr Q24H IVPB 07/18/19 14:00 07/25/19 13:59 07/18/19 14:15 Dextrose (Dextrose 50%) 25 ml Q30M PRN IV Hypoglycemia 07/16/19 07:30 08/15/19 07:29 Dextrose (Dextrose 50%) 50 ml Q30M PRN IV Hypoglycemia 07/16/19 07:30 08/15/19 07:29 Diltiazem HCl (Cardizem) 30 mg BID ORAL 07/18/19 18:00 08/17/19 17:59 07/19/19 09:12 Docusate Sodium (Colace) 100 mg TWICE A DAY ORAL 07/16/19 09:00 08/15/19 08:59 07/19/19 09:11 Enoxaparin Sodium (Lovenox) 40 mg DAILY SUBQ 07/19/19 09:00 08/18/19 08:59 07/19/19 09:13 Fentanyl (Duragesic) 1 patch Q72H TDERMAL 07/18/19 14:00 07/25/19 13:59 07/18/19 14:25 Gabapentin (Neurontin) 300 mg THREE TIMES A DAY ORAL 07/16/19 09:00 08/15/19 08:59 07/19/19 09:11 Guaifenesin (Robitussin) 200 mg Q4H PRN ORAL FOR COUGH 07/16/19 07:00 08/15/19 06:59 Insulin Aspart (NovoLOG) BEFORE MEALS AND HS SUBQ 07/16/19 11:30 08/15/19 11:29 07/16/19 12:36 Lorazepam (Ativan) 0.5 mg Q6H PRN ORAL For Anxiety 07/16/19 14:00 07/23/19 13:59 07/19/19 09:12 Memantine (Namenda) 5 mg BID ORAL 07/16/19 09:00 08/15/19 08:59 07/19/19 09:11 Mirtazapine (Remeron) 15 mg BEDTIME ORAL 07/16/19 21:00 08/15/19 20:59 07/18/19 20:17 Miscellaneous Medication (fentaNYL Destruction) 1 ea Q72H MISC 07/21/19 13:59 08/20/19 13:58 Morphine Sulfate (Morphine Sulfate) 2 mg Q4H PRN IVP Severe Breakthru Pain (>7) 07/16/19 13:45 07/23/19 13:44 07/19/19 09:12 Naloxone HCl (Narcan) 0.1 mg PRN PRN IV Sedation scale 3 or 4 07/18/19 11:45 08/17/19 11:44 Pantoprazole (Protonix) 40 mg BEFORE BREAKFAST ORAL 07/17/19 06:30 08/16/19 06:29 07/19/19 06:25 Promethazine HCl/ Codeine (Phenergan with Codeine) 5 ml Q4H PRN ORAL For Cough 07/17/19 13:08 08/16/19 13:07 Sennosides (Senokot) 8.6 mg QHS ORAL 07/16/19 21:00 08/15/19 20:59 07/18/19 20:17 Sertraline HCl (Zoloft) 50 mg DAILY ORAL 07/16/19 09:00 08/15/19 08:59 07/19/19 09:11 Theophylline (Puma-Dur) 100 mg EVERY 12 HOURS ORAL 07/17/19 21:00 08/16/19 20:59 07/19/19 09:11 Vancomycin HCl (Vanco rx to dose) 1 ea DAILY PRN MISC Per rx protocol 07/18/19 13:00 08/17/19 12:59 Vancomycin/Sodium Chloride 275 ml @ 137.5 mls/ hr Q12HR@0300,1500 IVPB 07/18/19 15:00 07/23/19 14:59 07/19/19 02:17 Zolpidem Tartrate (Ambien) 5 mg BEDTIME PRN ORAL Insomnia 07/16/19 07:00 07/23/19 06:59 Sharon Gimenez NURSING ASSISTANT Jul 19, 2019 11:56
[2019-07-19 12:00] VITALS: BP 127/72
[2019-07-19] MEDS ORDERED: ROCEPHIN 11 GM/50 ML IVPB (13:32)
[2019-07-19] MEDS ORDERED: VANCOMYCIN1.5 GM/300 IV (13:34)
[2019-07-19] MEDS: cefTRIAXone 1 GM in D5W 55 ML IVPB SCH (13:42)
[2019-07-19] MEDS ORDERED: MIRTAZAPINE15 M3 ORAL (13:44)
--- NOTE | 2019-07-19 13:46 | Infectious Diseases Prog Note ---
Assessment/Plan Assessment/Plan Assessment: Sepsis Early PNA -07/18 CXR: Suspected left perihilar infiltrate. Correlate clinically. Slightly worsening CH -07/15 CXR: Limited hypoventilatory exam. Prominence of the central bronchovascular structures may be in part due to low lung volumes. -influenza sc neg, sp cx normal resp frank Leukocytosis, improving Afebrile REcent Abdominal wall cellulitis (L side) and L mastitis; still ongoing CHF exacerbation Intractable Back pain MELVIN hx of aspiration PNA morbid obesity CAD/TN CHF HTN hypothryoidism hx of abdominal wall cellulitis MDD w/ psychotic features peripheral neuropathy s/p cholecystectomy s/p hysterectomy s/p appendectomy tobacco abuse HLD Dm2 COPD OK resident VRE and MRSA colonized Plan: -D/c empiric IV Vancomycin #2 -Continue Ceftriaxone #2/7 for PNA and cellulitis -f/u cx -Monitor CBC/CMP, temperatares -aspiration precautions Thank you for consulting [facility]. Will continue to follow along with you. Discussed with RN. Subjective Allergies: Coded Allergies: HALOPERIDOL (Verified Allergy, Unknown, 06/16/17) Objective Vital Signs Last 24 Hour Vital Signs Date Time Temp Pulse Resp B/P (MAP) Pulse Ox O2 Delivery O2 Flow Rate FiO2 07/19/19 10:17 101 20 98 Venturi Mask 12.0 50 102 20 96 07/19/19 09:42 98.1 07/19/19 09:12 82 128/73 07/19/19 09:00 Venturi Mask 10.0 07/19/19 08:15 104 22 96 Venturi Mask 12.0 50 102 22 94 07/19/19 08:10 104 22 96 Venturi Mask 12.0 50 102 22 94 07/19/19 08:00 99.0 82 21 128/73 (91) 94 07/19/19 07:59 94 Venturi Mask 12.0 50 07/19/19 04:00 98.1 101 24 120/61 (80) 98 07/19/19 02:55 111 22 98 Venturi Mask 12.0 50 109 24 96 07/19/19 00:00 99.0 80 24 124/70 (88) 98 07/18/19 23:31 107 20 98 Venturi Mask 12.0 50 104 22 97 07/18/19 22:09 109 22 97 Venturi Mask 12.0 50 107 24 96 07/18/19 21:46 Venturi Mask 10.0 07/18/19 20:00 99.0 110 25 136/89 (105) 98 07/18/19 20:00 93 Venturi Mask 12.0 50 07/18/19 18:40 107 104/65 07/18/19 17:11 107 104/65 07/18/19 15:40 98.1 107 20 104/65 (78) 98 07/18/19 14:12 106 20 98 Venturi Mask 10.0 45 110 20 95 Height (Feet): 5 Height (Inches): 5.00 Weight (Pounds): 398 Objective GENERAL: Slightly anxious, O2 in place, slight short of breath in bed.. CARDIOVASCULAR: No murmur. LUNGS: Poor air exchange. ABDOMEN: Bowel sounds distant. EXTREMITIES: No cyanosis or clubbing. 1+ edema. NEUROLOGIC: The patient is moving all extremities, slightly weak. Microbiology Date/Time Source Procedure Growth Status 07/18/19 16:00 Nasopharynx - Final Complete 07/18/19 16:00 Nasopharynx - Final Complete 07/17/19 16:30 Sputum Gram Stain - Final Complete 07/17/19 16:30 Sputum Sputum Culture - Final NORMAL UPPER RESPIRATORY FRANK PRESENT Complete Laboratory Tests Test 07/19/19 07:30 White Blood Count 12.7 K/UL (4.8-10.8) H Red Blood Count 4.57 M/UL (4.20-5.40) Hemoglobin 13.7 G/DL (12.0-16.0) Hematocrit 40.1 % (37.0-47.0) Mean Corpuscular Volume 88 FL (80-99) Mean Corpuscular Hemoglobin 30.1 PG (27.0-31.0) Mean Corpuscular Hemoglobin Concent 34.3 G/DL (32.0-36.0) Red Cell Distribution Width 13.4 % (11.6-14.8) Platelet Count 215 K/UL (150-450) Mean Platelet Volume 5.7 FL (6.5-10.1) L Neutrophils (%) (Auto) 82.5 % (45.0-75.0) H Lymphocytes (%) (Auto) 7.3 % (20.0-45.0) L Monocytes (%) (Auto) 8.9 % (1.0-10.0) Eosinophils (%) (Auto) 0.5 % (0.0-3.0) Basophils (%) (Auto) 0.8 % (0.0-2.0) Sodium Level 138 MMOL/L (136-145) Potassium Level 4.1 MMOL/L (3.5-5.1) Chloride Level 98 MMOL/L (98-107) Carbon Dioxide Level 34 MMOL/L (21-32) H Anion Gap 6 mmol/L (5-15) Blood Urea Nitrogen 8 mg/dL (7-18) Creatinine 0.6 MG/DL (0.55-1.30) Estimat Glomerular Filtration Rate mL/min (>60) Glucose Level 134 MG/DL (74-106) H Calcium Level 9.0 MG/DL (8.5-10.1) Troponin I 0.000 ng/mL (0.000-0.056) Current Medications Medications (Trade) Dose Ordered Sig/Marleni Route PRN Reason Start Time Stop Time Status Last Admin Dose Admin Acetaminophen (Tylenol) 650 mg Q6H PRN ORAL Mild Pain/Temp > 100.5 07/16/19 07:00 08/15/19 06:59 Acetaminophen/ Hydrocodone Bitart ([place] 5/325) 1 tab Q6H PRN ORAL Severe Pain (Pain Scale 7-10) 07/16/19 07:00 07/23/19 06:59 07/18/19 07:43 Acetylcysteine (Mucomyst) 400 mg Q8HRT INH 07/16/19 07:30 08/15/19 07:29 07/19/19 08:00 Albuterol/ Ipratropium (Albuterol/ Ipratropium) 3 ml Q4HR PRN HHN shortness of breath 07/16/19 07:00 07/21/19 06:59 07/19/19 07:59 Aspirin (ASA) 81 mg DAILY ORAL 07/16/19 09:00 08/15/19 08:59 07/19/19 09:12 Budesonide (Pulmicort) 0.5 mg Q12HRT HHN 07/16/19 10:00 08/15/19 09:59 07/19/19 10:02 Ceftriaxone Sodium 1 gm/ Dextrose 55 ml @ 110 mls/hr Q24H IVPB 07/18/19 14:00 07/25/19 13:59 07/18/19 14:15 Dextrose (Dextrose 50%) 25 ml Q30M PRN IV Hypoglycemia 07/16/19 07:30 08/15/19 07:29 Dextrose (Dextrose 50%) 50 ml Q30M PRN IV Hypoglycemia 07/16/19 07:30 08/15/19 07:29 Diltiazem HCl (Cardizem) 30 mg BID ORAL 07/18/19 18:00 08/17/19 17:59 07/19/19 09:12 Docusate Sodium (Colace) 100 mg TWICE A DAY ORAL 07/16/19 09:00 08/15/19 08:59 07/19/19 09:11 Enoxaparin Sodium (Lovenox) 40 mg DAILY SUBQ 07/19/19 09:00 08/18/19 08:59 07/19/19 09:13 Fentanyl (Duragesic) 1 patch Q72H TDERMAL 07/18/19 14:00 07/25/19 13:59 07/18/19 14:25 Gabapentin (Neurontin) 300 mg THREE TIMES A DAY ORAL 07/16/19 09:00 08/15/19 08:59 07/19/19 09:11 Guaifenesin (Robitussin) 200 mg Q4H PRN ORAL FOR COUGH 07/16/19 07:00 08/15/19 06:59 Insulin Aspart (NovoLOG) BEFORE MEALS AND HS SUBQ 07/16/19 11:30 08/15/19 11:29 07/16/19 12:36 Lorazepam (Ativan) 0.5 mg Q6H PRN ORAL For Anxiety 07/16/19 14:00 07/23/19 13:59 07/19/19 09:12 Memantine (Namenda) 5 mg BID ORAL 07/16/19 09:00 08/15/19 08:59 07/19/19 09:11 Mirtazapine (Remeron) 15 mg BEDTIME ORAL 07/16/19 21:00 08/15/19 20:59 07/18/19 20:17 Miscellaneous Medication (fentaNYL Destruction) 1 ea Q72H MISC 07/21/19 13:59 08/20/19 13:58 Morphine Sulfate (Morphine Sulfate) 2 mg Q4H PRN IVP Severe Breakthru Pain (>7) 07/16/19 13:45 07/23/19 13:44 07/19/19 09:12 Naloxone HCl (Narcan) 0.1 mg PRN PRN IV Sedation scale 3 or 4 07/18/19 11:45 08/17/19 11:44 Pantoprazole (Protonix) 40 mg BEFORE BREAKFAST ORAL 07/17/19 06:30 08/16/19 06:29 07/19/19 06:25 Promethazine HCl/ Codeine (Phenergan with Codeine) 5 ml Q4H PRN ORAL For Cough 07/17/19 13:08 08/16/19 13:07 Sennosides (Senokot) 8.6 mg QHS ORAL 07/16/19 21:00 08/15/19 20:59 07/18/19 20:17 Sertraline HCl (Zoloft) 50 mg DAILY ORAL 07/16/19 09:00 08/15/19 08:59 07/19/19 09:11 Theophylline (Puma-Dur) 100 mg EVERY 12 HOURS ORAL 07/17/19 21:00 08/16/19 20:59 07/19/19 09:11 Vancomycin HCl (Vanco rx to dose) 1 ea DAILY PRN MISC Per rx protocol 07/18/19 13:00 08/17/19 12:59 Vancomycin/Sodium Chloride 275 ml @ 137.5 mls/ hr Q12HR@0300,1500 IVPB 07/18/19 15:00 07/23/19 14:59 07/19/19 02:17 Zolpidem Tartrate (Ambien) 5 mg BEDTIME PRN ORAL Insomnia 07/16/19 07:00 07/23/19 06:59 Ange Grant M.D. Jul 19, 2019 13:46
[2019-07-19 16:00] VITALS: BP 132/80
--- NOTE | 2019-07-19 16:00 | Progress Note ---
DATE: 07/19/2019 SUBJECTIVE: This is a 73-year-old female with cough and back pain. Some confusion, disorganized thought process, and decline in cognition below baseline. That is why, her attending physician has requested daily psychiatric consultation. MENTAL STATUS EXAMINATION: This is a 73-year-old female. Appearance is disheveled. Attitude, irritable and agitated. Affect guarded and restricted. Intellect poor. Mood, depressed and anxious. Motor activity, psychomotor agitation. Attention span is poor. Orientation x2. Speech is pressured. Thought process, disorganized and illogical. Insight and judgment is poor. DIAGNOSIS: Bipolar 2. PLAN: Treat the patient with Namenda 5 mg twice a day, Zoloft 50 mg a day, Remeron 15 at bedtime, Ativan 0.5 mg every 6 hours p.r.n. anxiety and agitation. 20 minutes of insight-oriented psychotherapy and cognitive behavioral therapy to help identify automatic negative thoughts, help her convert negative thoughts to more positive thoughts to reduce depression, anxiety, mood lability. Chart reviewed. Discussed with staff. Seen and assessed at bedside. Filipe Yen M.D. DR: MONTRELL JOB#: [id number] CC:
--- NOTE | 2019-07-19 17:02 | NUR ---
NURSE NOTES: on simple mask @5L with o2sat 93%. Breathing regular and unlabored. denies pain at this time. will continue to monitor Addendum: 07/19/19 at 1737 by JOHN CARABALLO RN NURSE NOTES: noted with discharge order to [facility] ([facility]). pt is unable to tolerate with NC at this time. DAVID Herrera of Dr. Gan made aware and received order to titrate to simple mask @ 5L. pt will be monitored another day.
--- NOTE | 2019-07-19 17:04 | NUR ---
CASE MANAGEMENT:REVIEW SI;SEPSIS. PNA. CHF EXACERBATION. 98.6 105 22 128/73 91% 12L VENTURI FIO2 @ 50% WBC 12.7 IS;ROCEPHIN IV Q24 HRS RUBINA-DUR PO Q12 HRS DUO NEB HHN Q4 HRS MUCOMYST INH Q8HRT PULMICORT HHN Q12 HRS MED SURG STATUS DCP;[facility]
--- NOTE | 2019-07-19 17:52 | NUR ---
NURSE NOTES: EKG result reported to Dr. Paulino. will follow up accordingly. Addendum: 07/19/19 at 1935 by JOHN CARABALLO RN NNO given from Dr. paulino
[2019-07-19] MEDS: HYDROcodone/Acetamin 5/325 tab ORAL PRN (18:48)
--- NOTE | 2019-07-19 19:35 | NUR ---
HAND-OFF: Report given to JAMEE Ferreira.
[2019-07-19 20:00] VITALS: BP 128/74
--- NOTE | 2019-07-19 20:27 | NUR ---
NURSE NOTES: Pt is in bed, awake and verbal. No acute distress noted. Pt is on simple mask at 5L. NO SOB. Pt will be repositioned frequently. Fall precaution in place. Bed locked low in position,side rails up and call light within reach. Pt will be monitored.
[2019-07-19] MEDS: Sennosides 8.6mg tab ORAL SCH (22:06)
[2019-07-20] VITALS: BP 126/78
[2019-07-20] MEDS: HYDROcodone/Acetamin 5/325 tab ORAL PRN ×2 (00:48→06:49)
[2019-07-20] MEDS: Albuterol/Ipratropium 3ml neb HHN PRN ×5 (02:54→23:25)
--- NOTE | 2019-07-20 03:59 | NUR ---
NURSE NOTES: Pt is in bed, asleep. No acute distress noted. Pt is receiving breathing treatment around the clock. Pt is on 5L simple mask currently.
[2019-07-20 04:00] VITALS: BP 140/66
[2019-07-20] MEDS: NovoLOG Insulin Flexpen SUBQ SCH ×4 (05:50→21:00)
--- NOTE | 2019-07-20 07:10 | NUR ---
HAND-OFF: Report given to Mary Portillo RN.Informed incoming nursethat patient is high fall risk.
--- NOTE | 2019-07-20 07:14 | NUR ---
NURSE NOTES: pt in bed with simple mask @5L. Breathing regular and unlabored. denies current pain at this time. HOB elevated for aspiration precaution. bed in lowest position. iv intact and patent. will continue to monitor
[2019-07-20 08:00] VITALS: BP 152/92
[2019-07-20] MEDS: Theophylline ER 100mg ORAL SCH ×2 (08:24→21:39)
[2019-07-20] MEDS: Aspirin Baby 81mg ORAL SCH (08:24)
[2019-07-20] MEDS: Sertraline 50mg tab ORAL SCH (08:24)
[2019-07-20] MEDS: Memantine 5 MG TAB ORAL SCH ×2 (08:24→17:13)
[2019-07-20] MEDS: Docusate 100mg cap ORAL SCH ×2 (08:24→17:13)
[2019-07-20] MEDS: dilTIAZem HCl 30mg tab ORAL SCH ×2 (08:24→17:13)
[2019-07-20] MEDS: Enoxaparin 40mg Inj SUBQ SCH (08:29)
[2019-07-20 08:37] LABS: BASOPHILS % (AUTO) 0.9 % (0.0-2.0); EOSINOPHILS % (AUTO) 1.1 % (0.0-3.0); HEMATOCRIT 38.4 % (37.0-47.0); HEMOGLOBIN 13.2 G/DL (12.0-16.0); LYMPHOCYTES % (AUTO) 8.4 % (20.0-45.0); MEAN CORPUSCULAR VOLUME 88 FL (80-99); MONOCYTES % (AUTO) 10.1 % (1.0-10.0); NEUTROPHILS % (AUTO) 79.5 % (45.0-75.0); PLATELET COUNT 229 K/UL (150-450); RED BLOOD COUNT 4.37 M/UL (4.20-5.40); RED CELL DISTRIBUTION WIDTH 13.4 % (11.6-14.8); WHITE BLOOD COUNT 10.9 K/UL (4.8-10.8)
[2019-07-20 08:56] LABS: ANION GAP 3 mmol/L (5-15); BLOOD UREA NITROGEN 10 mg/dL (7-18); CARBON DIOXIDE 36 MMOL/L (21-32); CHLORIDE 97 MMOL/L (98-107); CREATININE 0.6 MG/DL (0.55-1.30); POTASSIUM 3.8 MMOL/L (3.5-5.1); SODIUM 136 MMOL/L (136-145)
[2019-07-20] MEDS ORDERED: HYDROcodone/Acetamin 7.5/325 tab ORAL PRN (10:15)
[2019-07-20] MEDS ORDERED: HYDROcodone/Acetamin 5/325 tab ORAL PRN ×2 (10:30→16:15)
--- NOTE | 2019-07-20 10:41 | General Progress Note ---
Assessment/Plan Assessment/Plan: (1) Morbid obesity (2) Lumbago (3) Peripheral neuropathy (4) COPD (5) CHF Patient will be continued on [place] increased to 7.5/325mg and an RX was written for patient in anticipation for discharge. We will discontinued Morphine and Fentanyl patch. D/w Dr. Hicks and he concurred. Subjective Date patient seen: Jul 20, 2019 Time patient seen: 09:00 - am Allergies: Coded Allergies: HALOPERIDOL (Verified Allergy, Unknown, 06/16/17) Subjective Constitutional: Reports: weakness HEENT: Reports: no symptoms Cardiovascular: Reports: no symptoms Respiratory: Reports: shortness of breath Gastrointestinal/Abdominal: Reports: no symptoms Genitourinary: Reports: no symptoms Neurologic/Psychiatric: Reports: no symptoms Endocrine: Reports: no symptoms Hematologic/Lymphatic: Reports: no symptoms Subjective Patient is in bed and was started on Fentanyl patch 12mcg/hr Q72Hrs as per another health care practitioner. At this time patient reports increased SOB waiting for a breathing treatment. It was d/w her about long acting opioid medication causing increased effect of respiratory depression. She seems to understand the need to have it discontinued. Objective Last 24 Hour Vital Signs Date Time Temp Pulse Resp B/P (MAP) Pulse Ox O2 Delivery O2 Flow Rate FiO2 07/20/19 09:00 Simple Mask 5.0 07/20/19 08:24 104 152/92 07/20/19 08:00 98.7 104 21 152/92 (112) 96 07/20/19 07:23 93 Simple Mask 8.0 40 07/20/19 07:23 106 22 95 Simple Mask 8.0 40 107 24 93 07/20/19 07:19 97.7 07/20/19 04:00 97.7 97 20 140/66 (90) 96 07/20/19 02:54 96 22 98 Simple Mask 8.0 40 92 22 94 07/20/19 00:00 98.8 80 20 126/78 (94) 94 07/19/19 23:51 98 22 97 Simple Mask 8.0 40 96 22 93 07/19/19 21:41 99 20 98 Venturi Mask 12.0 50 96 20 94 07/19/19 21:00 Simple Mask 5.0 07/19/19 20:00 99.0 75 20 128/74 (92) 93 07/19/19 17:23 109 132/80 07/19/19 16:51 91 Simple Mask 5.0 40 07/19/19 16:00 98.4 109 21 132/80 (97) 93 07/19/19 15:16 98.6 07/19/19 14:51 100 24 95 Venturi Mask 12.0 50 90 22 91 07/19/19 12:00 98.6 105 21 127/72 (90) 94 Intake and Output 07/19/19 07/20/19 19:00 07:00 Intake Total 800 ml Output Total 1000 ml 400 ml Balance -200 ml -400 ml Intake Oral 800 ml Output Urine Total 1000 ml 400 ml Laboratory Tests 07/20/19 07:35: White Blood Count 10.9H, Red Blood Count 4.37, Hemoglobin 13.2, Hematocrit 38.4 , Mean Corpuscular Volume 88, Mean Corpuscular Hemoglobin 30.3, Mean Corpuscular Hemoglobin Concent 34.4, Red Cell Distribution Width 13.4, Platelet Count 229, Mean Platelet Volume 5.4L, Neutrophils (%) (Auto) 79.5H, Lymphocytes (%) (Auto) 8.4L, Monocytes (%) (Auto) 10.1H, Eosinophils (%) (Auto) 1.1, Basophils (%) (Auto) 0.9, Sodium Level 136, Potassium Level 3.8, Chloride Level 97L, Carbon Dioxide Level 36H, Anion Gap 3L, Blood Urea Nitrogen 10, Creatinine 0.6, Estimat Glomerular Filtration Rate , Glucose Level 150H, Calcium Level 9.0 Height (Feet): 5 Height (Inches): 5.00 Weight (Pounds): 398 Objective General Appearance: no apparent distress, alert EENT: PERRL/EOMI, normal ENT inspection Neck: non-tender, normal alignment Cardiovascular: normal rate, regular rhythm Respiratory/Chest: decreased breath sounds Abdomen: non tender, soft Edema: mild edema Neurologic: alert, oriented x 3 Skin: warm/dry David Odom Jul 20, 2019 10:41
[2019-07-20] MEDS: Budesonide HHN 0.25mg/2ml ud HHN SCH ×2 (10:42→21:35)
[2019-07-20] MEDS: LORazepam 0.5mg tab ORAL PRN (11:14)
--- NOTE | 2019-07-20 11:49 | NUR ---
NURSE NOTES: destructed fentanyl patch from pt. pharmacy made aware
--- NOTE | 2019-07-20 11:52 | Infectious Diseases Prog Note ---
Assessment/Plan Assessment/Plan Assessment: Sepsis Early PNA -07/18 CXR: Suspected left perihilar infiltrate. Correlate clinically. Slightly worsening CH -07/15 CXR: Limited hypoventilatory exam. Prominence of the central bronchovascular structures may be in part due to low lung volumes. -influenza sc neg, sp cx normal resp frank Leukocytosis, improving Afebrile REcent Abdominal wall cellulitis (L side) and L mastitis; still ongoing CHF exacerbation Intractable Back pain MELVIN hx of aspiration PNA morbid obesity CAD/RI CHF HTN hypothryoidism hx of abdominal wall cellulitis MDD w/ psychotic features peripheral neuropathy s/p cholecystectomy s/p hysterectomy s/p appendectomy tobacco abuse HLD Dm2 COPD OK resident VRE and MRSA colonized Plan: -Continue Ceftriaxone #3/7 for PNA and cellulitis -/ SP IV Vancomycin #2 -f/u cx -Monitor CBC/CMP, temperatares -aspiration precautions Thank you for consulting [facility]. Will continue to follow along with you. Discussed with RN. Subjective Allergies: Coded Allergies: HALOPERIDOL (Verified Allergy, Unknown, 06/16/17) Subjective afebrile wbc improving Objective Vital Signs Last 24 Hour Vital Signs Date Time Temp Pulse Resp B/P (MAP) Pulse Ox O2 Delivery O2 Flow Rate FiO2 07/20/19 10:42 101 20 97 Simple Mask 5.0 40 98 20 92 07/20/19 09:00 Simple Mask 5.0 07/20/19 08:24 104 152/92 07/20/19 08:00 98.7 104 21 152/92 (112) 96 07/20/19 07:23 93 Simple Mask 8.0 40 07/20/19 07:23 106 22 95 Simple Mask 8.0 40 107 24 93 07/20/19 07:19 97.7 07/20/19 04:00 97.7 97 20 140/66 (90) 96 07/20/19 02:54 96 22 98 Simple Mask 8.0 40 92 22 94 07/20/19 00:00 98.8 80 20 126/78 (94) 94 07/19/19 23:51 98 22 97 Simple Mask 8.0 40 96 22 93 07/19/19 21:41 99 20 98 Venturi Mask 12.0 50 96 20 94 07/19/19 21:00 Simple Mask 5.0 07/19/19 20:00 99.0 75 20 128/74 (92) 93 07/19/19 17:23 109 132/80 07/19/19 16:51 91 Simple Mask 5.0 40 07/19/19 16:00 98.4 109 21 132/80 (97) 93 07/19/19 15:16 98.6 07/19/19 14:51 100 24 95 Venturi Mask 12.0 50 90 22 91 07/19/19 12:00 98.6 105 21 127/72 (90) 94 Height (Feet): 5 Height (Inches): 5.00 Weight (Pounds): 398 Objective GENERAL: Slightly anxious, O2 in place, slight short of breath in bed.. CARDIOVASCULAR: No murmur. LUNGS: Poor air exchange. ABDOMEN: Bowel sounds distant. EXTREMITIES: No cyanosis or clubbing. 1+ edema. NEUROLOGIC: The patient is moving all extremities, slightly weak. Microbiology Date/Time Source Procedure Growth Status 07/18/19 16:00 Nasopharynx - Final Complete 07/18/19 16:00 Nasopharynx - Final Complete 07/17/19 16:30 Sputum Gram Stain - Final Complete 07/17/19 16:30 Sputum Sputum Culture - Final NORMAL UPPER RESPIRATORY FRANK PRESENT Complete Laboratory Tests Test 07/20/19 07:35 White Blood Count 10.9 K/UL (4.8-10.8) H Red Blood Count 4.37 M/UL (4.20-5.40) Hemoglobin 13.2 G/DL (12.0-16.0) Hematocrit 38.4 % (37.0-47.0) Mean Corpuscular Volume 88 FL (80-99) Mean Corpuscular Hemoglobin 30.3 PG (27.0-31.0) Mean Corpuscular Hemoglobin Concent 34.4 G/DL (32.0-36.0) Red Cell Distribution Width 13.4 % (11.6-14.8) Platelet Count 229 K/UL (150-450) Mean Platelet Volume 5.4 FL (6.5-10.1) L Neutrophils (%) (Auto) 79.5 % (45.0-75.0) H Lymphocytes (%) (Auto) 8.4 % (20.0-45.0) L Monocytes (%) (Auto) 10.1 % (1.0-10.0) H Eosinophils (%) (Auto) 1.1 % (0.0-3.0) Basophils (%) (Auto) 0.9 % (0.0-2.0) Sodium Level 136 MMOL/L (136-145) Potassium Level 3.8 MMOL/L (3.5-5.1) Chloride Level 97 MMOL/L (98-107) L Carbon Dioxide Level 36 MMOL/L (21-32) H Anion Gap 3 mmol/L (5-15) L Blood Urea Nitrogen 10 mg/dL (7-18) Creatinine 0.6 MG/DL (0.55-1.30) Estimat Glomerular Filtration Rate mL/min (>60) Glucose Level 150 MG/DL (74-106) H Calcium Level 9.0 MG/DL (8.5-10.1) Current Medications Medications (Trade) Dose Ordered Sig/Marleni Route PRN Reason Start Time Stop Time Status Last Admin Dose Admin Acetaminophen (Tylenol) 650 mg Q6H PRN ORAL Mild Pain/Temp > 100.5 07/16/19 07:00 08/15/19 06:59 Acetaminophen/ Hydrocodone Bitart ([place] 5/325) 1 tab Q6H PRN ORAL Moderate Pain (Pain Scale 4-6) 07/20/19 10:30 07/21/19 13:59 Acetaminophen/ Hydrocodone Bitart ([place] 7.5/325) 1 tab Q4H PRN ORAL Severe Pain (Pain Scale 7-10) 07/20/19 10:15 07/27/19 10:14 07/20/19 11:43 Acetylcysteine (Mucomyst) 400 mg Q8HRT INH 07/16/19 07:30 08/15/19 07:29 07/20/19 07:21 Albuterol/ Ipratropium (Albuterol/ Ipratropium) 3 ml Q4HR PRN HHN shortness of breath 07/16/19 07:00 07/21/19 06:59 07/20/19 07:23 Aspirin (ASA) 81 mg DAILY ORAL 07/16/19 09:00 08/15/19 08:59 07/20/19 08:24 Budesonide (Pulmicort) 0.5 mg Q12HRT HHN 07/16/19 10:00 08/15/19 09:59 2/6/20 10:42 Ceftriaxone Sodium 1 gm/ Dextrose 55 ml @ 110 mls/hr Q24H IVPB 07/18/19 14:00 07/25/19 13:59 07/19/19 13:42 Dextrose (Dextrose 50%) 25 ml Q30M PRN IV Hypoglycemia 07/16/19 07:30 08/15/19 07:29 Dextrose (Dextrose 50%) 50 ml Q30M PRN IV Hypoglycemia 07/16/19 07:30 08/15/19 07:29 Diltiazem HCl (Cardizem) 30 mg BID ORAL 07/18/19 18:00 08/17/19 17:59 07/20/19 08:24 Docusate Sodium (Colace) 100 mg TWICE A DAY ORAL 07/16/19 09:00 08/15/19 08:59 07/20/19 08:24 Enoxaparin Sodium (Lovenox) 40 mg DAILY SUBQ 07/19/19 09:00 08/18/19 08:59 07/20/19 08:29 Gabapentin (Neurontin) 300 mg THREE TIMES A DAY ORAL 07/16/19 09:00 08/15/19 08:59 07/20/19 08:24 Guaifenesin (Robitussin) 200 mg Q4H PRN ORAL FOR COUGH 07/16/19 07:00 08/15/19 06:59 Insulin Aspart (NovoLOG) BEFORE MEALS AND HS SUBQ 07/16/19 11:30 08/15/19 11:29 07/16/19 12:36 Lorazepam (Ativan) 0.5 mg Q6H PRN ORAL For Anxiety 07/16/19 14:00 07/23/19 13:59 07/20/19 11:14 Memantine (Namenda) 5 mg BID ORAL 07/16/19 09:00 08/15/19 08:59 07/20/19 08:24 Mirtazapine (Remeron) 15 mg BEDTIME ORAL 07/16/19 21:00 08/15/19 20:59 07/19/19 22:07 Morphine Sulfate (Morphine Sulfate) 2 mg Q4H PRN IVP Severe Breakthru Pain (>7) 07/16/19 13:45 07/21/19 13:59 07/19/19 14:46 Naloxone HCl (Narcan) 0.1 mg PRN PRN IV Sedation scale 3 or 4 07/18/19 11:45 08/17/19 11:44 Pantoprazole (Protonix) 40 mg BEFORE BREAKFAST ORAL 07/17/19 06:30 08/16/19 06:29 07/19/19 11:48 Promethazine HCl/ Codeine (Phenergan with Codeine) 5 ml Q4H PRN ORAL For Cough 07/17/19 13:08 08/16/19 13:07 Sennosides (Senokot) 8.6 mg QHS ORAL 07/16/19 21:00 08/15/19 20:59 07/19/19 22:06 Sertraline HCl (Zoloft) 50 mg DAILY ORAL 07/16/19 09:00 08/15/19 08:59 07/20/19 08:24 Theophylline (Puma-Dur) 100 mg EVERY 12 HOURS ORAL 07/17/19 21:00 08/16/19 20:59 07/20/19 08:24 Zolpidem Tartrate (Ambien) 5 mg BEDTIME PRN ORAL Insomnia 07/16/19 07:00 07/23/19 06:59 07/19/19 22:06 Ange Grant M.D. Jul 20, 2019 11:52
[2019-07-20 12:00] VITALS: BP 121/77
--- NOTE | 2019-07-20 12:24 | General Progress Note ---
Assessment/Plan Problem List: (1) HTN (hypertension) ICD Codes: I10 - Essential (primary) hypertension SNOMED: 95670223 (2) COPD (chronic obstructive pulmonary disease) ICD Codes: J44.9 - Chronic obstructive pulmonary disease, unspecified SNOMED: 24224135 (3) Hypothyroidism ICD Codes: E03.9 - Hypothyroidism, unspecified SNOMED: 92685447 (4) Peripheral edema ICD Codes: R60.9 - Edema, unspecified SNOMED: 344408052 Status: stable, progressing Assessment/Plan: pt dit o2 pulm tx bp bs control cbc bmp in am dc plan Subjective Constitutional: Reports: weakness Allergies: Coded Allergies: HALOPERIDOL (Verified Allergy, Unknown, 06/16/17) All Systems: reviewed and negative except above Subjective pulm tx c/o lbp Objective Last 24 Hour Vital Signs Date Time Temp Pulse Resp B/P (MAP) Pulse Ox O2 Delivery O2 Flow Rate FiO2 07/20/19 10:42 101 20 97 Simple Mask 5.0 40 98 20 92 07/20/19 09:00 Simple Mask 5.0 07/20/19 08:24 104 152/92 07/20/19 08:00 98.7 104 21 152/92 (112) 96 07/20/19 07:23 93 Simple Mask 8.0 40 07/20/19 07:23 106 22 95 Simple Mask 8.0 40 107 24 93 07/20/19 07:19 97.7 07/20/19 04:00 97.7 97 20 140/66 (90) 96 07/20/19 02:54 96 22 98 Simple Mask 8.0 40 92 22 94 07/20/19 00:00 98.8 80 20 126/78 (94) 94 07/19/19 23:51 98 22 97 Simple Mask 8.0 40 96 22 93 07/19/19 21:41 99 20 98 Venturi Mask 12.0 50 96 20 94 07/19/19 21:00 Simple Mask 5.0 07/19/19 20:00 99.0 75 20 128/74 (92) 93 07/19/19 17:23 109 132/80 07/19/19 16:51 91 Simple Mask 5.0 40 07/19/19 16:00 98.4 109 21 132/80 (97) 93 07/19/19 15:16 98.6 07/19/19 14:51 100 24 95 Venturi Mask 12.0 50 90 22 91 Intake and Output 07/19/19 07/20/19 19:00 07:00 Intake Total 800 ml Output Total 1000 ml 400 ml Balance -200 ml -400 ml Intake Oral 800 ml Output Urine Total 1000 ml 400 ml Laboratory Tests 07/20/19 07:35: White Blood Count 10.9H, Red Blood Count 4.37, Hemoglobin 13.2, Hematocrit 38.4 , Mean Corpuscular Volume 88, Mean Corpuscular Hemoglobin 30.3, Mean Corpuscular Hemoglobin Concent 34.4, Red Cell Distribution Width 13.4, Platelet Count 229, Mean Platelet Volume 5.4L, Neutrophils (%) (Auto) 79.5H, Lymphocytes (%) (Auto) 8.4L, Monocytes (%) (Auto) 10.1H, Eosinophils (%) (Auto) 1.1, Basophils (%) (Auto) 0.9, Sodium Level 136, Potassium Level 3.8, Chloride Level 97L, Carbon Dioxide Level 36H, Anion Gap 3L, Blood Urea Nitrogen 10, Creatinine 0.6, Estimat Glomerular Filtration Rate , Glucose Level 150H, Calcium Level 9.0 Height (Feet): 5 Height (Inches): 5.00 Weight (Pounds): 398 General Appearance: lethargic EENT: normal ENT inspection Neck: normal alignment Cardiovascular: normal peripheral pulses, normal rate, regular rhythm Respiratory/Chest: chest wall non-tender, lungs clear, normal breath sounds Abdomen: normal bowel sounds, non tender, soft Neurologic: responsive, motor weakness Skin: normal pigmentation, warm/dry Bill Lane DO Jul 20, 2019 12:24
[2019-07-20] MEDS: cefTRIAXone 1 GM in D5W 55 ML IVPB SCH (13:24)
--- NOTE | 2019-07-20 13:47 | Pulmonology Progress Note ---
Assessment/Plan Problems: (1) COPD (chronic obstructive pulmonary disease) (2) Peripheral edema (3) MELVIN (obstructive sleep apnea) (4) Schizophrenia (5) Morbid obesity (6) HTN (hypertension) (7) Hypothyroidism Assessment/Plan more short of breath repeat cxr, and BNP respiratory treatment continue supplemental oxygen symptomatic treatment titrate fio2 to sat of 92% Subjective ROS Limited/Unobtainable: No Interval Events: still short of breath, on face mask Allergies: Coded Allergies: HALOPERIDOL (Verified Allergy, Unknown, 06/16/17) Objective Last 24 Hour Vital Signs Date Time Temp Pulse Resp B/P (MAP) Pulse Ox O2 Delivery O2 Flow Rate FiO2 07/20/19 12:13 98.7 07/20/19 12:00 98.6 110 22 121/77 (92) 97 07/20/19 10:42 101 20 97 Simple Mask 5.0 40 98 20 92 07/20/19 09:00 Simple Mask 5.0 07/20/19 08:24 104 152/92 07/20/19 08:00 98.7 104 21 152/92 (112) 96 07/20/19 07:23 93 Simple Mask 8.0 40 07/20/19 07:23 106 22 95 Simple Mask 8.0 40 107 24 93 07/20/19 07:19 97.7 07/20/19 04:00 97.7 97 20 140/66 (90) 96 07/20/19 02:54 96 22 98 Simple Mask 8.0 40 92 22 94 07/20/19 00:00 98.8 80 20 126/78 (94) 94 07/19/19 23:51 98 22 97 Simple Mask 8.0 40 96 22 93 07/19/19 21:41 99 20 98 Venturi Mask 12.0 50 96 20 94 07/19/19 21:00 Simple Mask 5.0 07/19/19 20:00 99.0 75 20 128/74 (92) 93 07/19/19 17:23 109 132/80 07/19/19 16:51 91 Simple Mask 5.0 40 07/19/19 16:00 98.4 109 21 132/80 (97) 93 07/19/19 15:16 98.6 07/19/19 14:51 100 24 95 Venturi Mask 12.0 50 90 22 91 Intake and Output 07/19/19 07/20/19 19:00 07:00 Intake Total 800 ml Output Total 1000 ml 400 ml Balance -200 ml -400 ml Intake Oral 800 ml Output Urine Total 1000 ml 400 ml General Appearance: WD/WN HEENT: normocephalic Respiratory/Chest: chest wall non-tender, lungs clear Breasts: no masses Cardiovascular: normal peripheral pulses Abdomen: normal bowel sounds, soft, non tender Genitourinary: normal external genitalia Extremities: no cyanosis Skin: no rash 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 Microbiology Date/Time Source Procedure Growth Status 07/18/19 16:00 Nasopharynx - Final Complete 07/18/19 16:00 Nasopharynx - Final Complete 07/17/19 16:30 Sputum Gram Stain - Final Complete 07/17/19 16:30 Sputum Sputum Culture - Final NORMAL UPPER RESPIRATORY KEELY PRESENT Complete Laboratory Tests 07/20/19 07:35: White Blood Count 10.9H, Red Blood Count 4.37, Hemoglobin 13.2, Hematocrit 38.4 , Mean Corpuscular Volume 88, Mean Corpuscular Hemoglobin 30.3, Mean Corpuscular Hemoglobin Concent 34.4, Red Cell Distribution Width 13.4, Platelet Count 229, Mean Platelet Volume 5.4L, Neutrophils (%) (Auto) 79.5H, Lymphocytes (%) (Auto) 8.4L, Monocytes (%) (Auto) 10.1H, Eosinophils (%) (Auto) 1.1, Basophils (%) (Auto) 0.9, Sodium Level 136, Potassium Level 3.8, Chloride Level 97L, Carbon Dioxide Level 36H, Anion Gap 3L, Blood Urea Nitrogen 10, Creatinine 0.6, Estimat Glomerular Filtration Rate , Glucose Level 150H, Calcium Level 9.0 Current Medications Medications (Trade) Dose Ordered Sig/Marleni Route PRN Reason Start Time Stop Time Status Last Admin Dose Admin Acetaminophen (Tylenol) 650 mg Q6H PRN ORAL Mild Pain/Temp > 100.5 07/16/19 07:00 08/15/19 06:59 Acetaminophen/ Hydrocodone Bitart ([place] 5/325) 1 tab Q6H PRN ORAL Moderate Pain (Pain Scale 4-6) 07/20/19 10:30 07/21/19 13:59 Acetaminophen/ Hydrocodone Bitart ([place] 7.5/325) 1 tab Q4H PRN ORAL Severe Pain (Pain Scale 7-10) 07/20/19 10:15 07/27/19 10:14 07/20/19 11:43 Acetylcysteine (Mucomyst) 400 mg Q8HRT INH 07/16/19 07:30 08/15/19 07:29 07/20/19 07:21 Albuterol/ Ipratropium (Albuterol/ Ipratropium) 3 ml Q4HR PRN HHN shortness of breath 07/16/19 07:00 07/21/19 06:59 07/20/19 07:23 Aspirin (ASA) 81 mg DAILY ORAL 07/16/19 09:00 08/15/19 08:59 07/20/19 08:24 Budesonide (Pulmicort) 0.5 mg Q12HRT HHN 07/16/19 10:00 08/15/19 09:59 07/20/19 10:42 Ceftriaxone Sodium 1 gm/ Dextrose 55 ml @ 110 mls/hr Q24H IVPB 07/18/19 14:00 07/25/19 13:59 07/20/19 13:24 Dextrose (Dextrose 50%) 25 ml Q30M PRN IV Hypoglycemia 07/16/19 07:30 08/15/19 07:29 Dextrose (Dextrose 50%) 50 ml Q30M PRN IV Hypoglycemia 07/16/19 07:30 08/15/19 07:29 Diltiazem HCl (Cardizem) 30 mg BID ORAL 07/18/19 18:00 08/17/19 17:59 07/20/19 08:24 Docusate Sodium (Colace) 100 mg TWICE A DAY ORAL 07/16/19 09:00 08/15/19 08:59 07/20/19 08:24 Enoxaparin Sodium (Lovenox) 40 mg DAILY SUBQ 07/19/19 09:00 08/18/19 08:59 07/20/19 08:29 Gabapentin (Neurontin) 300 mg THREE TIMES A DAY ORAL 07/16/19 09:00 08/15/19 08:59 07/20/19 13:24 Guaifenesin (Robitussin) 200 mg Q4H PRN ORAL FOR COUGH 07/16/19 07:00 08/15/19 06:59 Insulin Aspart (NovoLOG) BEFORE MEALS AND HS SUBQ 07/16/19 11:30 08/15/19 11:29 07/16/19 12:36 Lorazepam (Ativan) 0.5 mg Q6H PRN ORAL For Anxiety 07/16/19 14:00 07/23/19 13:59 07/20/19 11:14 Memantine (Namenda) 5 mg BID ORAL 07/16/19 09:00 08/15/19 08:59 07/20/19 08:24 Mirtazapine (Remeron) 15 mg BEDTIME ORAL 07/16/19 21:00 08/15/19 20:59 07/19/19 22:07 Morphine Sulfate (Morphine Sulfate) 2 mg Q4H PRN IVP Severe Breakthru Pain (>7) 07/16/19 13:45 07/21/19 13:59 07/19/19 14:46 Naloxone HCl (Narcan) 0.1 mg PRN PRN IV Sedation scale 3 or 4 07/18/19 11:45 08/17/19 11:44 Pantoprazole (Protonix) 40 mg BEFORE BREAKFAST ORAL 07/17/19 06:30 08/16/19 06:29 07/19/19 11:48 Promethazine HCl/ Codeine (Phenergan with Codeine) 5 ml Q4H PRN ORAL For Cough 07/17/19 13:08 08/16/19 13:07 Sennosides (Senokot) 8.6 mg QHS ORAL 07/16/19 21:00 08/15/19 20:59 07/19/19 22:06 Sertraline HCl (Zoloft) 50 mg DAILY ORAL 07/16/19 09:00 08/15/19 08:59 07/20/19 08:24 Theophylline (Puma-Dur) 100 mg EVERY 12 HOURS ORAL 07/17/19 21:00 08/16/19 20:59 07/20/19 08:24 Zolpidem Tartrate (Ambien) 5 mg BEDTIME PRN ORAL Insomnia 07/16/19 07:00 07/23/19 06:59 07/19/19 22:06 Fartun Gan MD Jul 20, 2019 13:47
--- NOTE | 2019-07-20 14:29 | NUR ---
RADIOLOGY DEPT., CHEST X-RAY PERFORMED BY CHARLES GARSIA
--- NOTE | 2019-07-20 14:40 | Diagnostic Imaging Report ---
Indication: Dyspnea Comparison: 07/18/2019 A single view chest radiograph was obtained. Findings: Interval development of complete left hemithorax. There is some volume loss associated with this indicating a component of atelectasis the previous film was notable for a perihilar density. The heart is enlarged. There is also evidence of mild pulmonary vascular congestion. Aorta is calcified. IMPRESSION: Complete opacification of left hemithorax at least partly due to atelectasis. Some volume loss noted. Congestive heart failure.
--- NOTE | 2019-07-20 15:44 | NUR ---
HAND-OFF: Report given to Transferred pt to Tele, Report given to JAMEE Pal. pt has no belongings.
--- NOTE | 2019-07-20 15:45 | NUR ---
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 CALL LIGHT WITH IN REACH, RAILS UP X 3,BED ALARM ON FOR SAFETY REASONS, BED AT LOWEST POSITION, IV INTACT AND PATENT, WILL CONTINUE TELEMONITOR.
[2019-07-20 16:00] VITALS: BP 140/61
[2019-07-20] MEDS ORDERED: guaiFENesin 100mg/5ml Liq ud ORAL PRN (16:15)
[2019-07-20] MEDS ORDERED: Morphine Sulfate 2mg/ml Inj(IV/IM USE ONLY) IVP PRN (16:16)
[2019-07-20] MEDS ORDERED: Promethazine/Codeine 5ml UD ORAL PRN (16:16)
[2019-07-20] MEDS ORDERED: Naloxone 0.4mg/ml Inj IV PRN (16:16)
[2019-07-20] MEDS: HYDROcodone/Acetamin 7.5/325 tab ORAL PRN (18:01)
--- NOTE | 2019-07-20 19:42 | NUR ---
HAND-OFF: Report given to GEORGI MANCUSO.
--- NOTE | 2019-07-20 19:43 | Cardiology Progress Note ---
Assessment/Plan Assessment/Plan copd ajith obesity htn atelectassis hhn oxygen cpap abx tele reviewed ekg echo not ed tds dvt ppx steroids Subjective Cardiovascular: Denies: chest pain Respiratory: Reports: cough, shortness of breath, sputum Gastrointestinal/Abdominal: Reports: abdominal pain Genitourinary: Denies: burning Objective Last 24 Hour Vital Signs Date Time Temp Pulse Resp B/P (MAP) Pulse Ox O2 Delivery O2 Flow Rate FiO2 07/20/19 17:13 103 140/61 07/20/19 16:00 97.9 103 20 140/61 (87) 94 07/20/19 15:48 109 22 96 Simple Mask 8.0 40 110 22 95 07/20/19 12:13 98.7 07/20/19 12:00 98.6 110 22 121/77 (92) 97 07/20/19 10:42 101 20 97 Simple Mask 5.0 40 98 20 92 07/20/19 09:00 Simple Mask 5.0 07/20/19 08:24 104 152/92 07/20/19 08:00 98.7 104 21 152/92 (112) 96 07/20/19 07:23 93 Simple Mask 8.0 40 07/20/19 07:23 106 22 95 Simple Mask 8.0 40 107 24 93 07/20/19 07:19 97.7 07/20/19 04:00 97.7 97 20 140/66 (90) 96 07/20/19 02:54 96 22 98 Simple Mask 8.0 40 92 22 94 07/20/19 00:00 98.8 80 20 126/78 (94) 94 07/19/19 23:51 98 22 97 Simple Mask 8.0 40 96 22 93 07/19/19 21:41 99 20 98 Venturi Mask 12.0 50 96 20 94 07/19/19 21:00 Simple Mask 5.0 07/19/19 20:00 99.0 75 20 128/74 (92) 93 General Appearance: no apparent distress, alert, obese Neck: supple Cardiovascular: normal rate Respiratory/Chest: decreased breath sounds, rhonchi - bilaterally Abdomen: normal bowel sounds, non tender, soft Extremities: moderate edema Intake and Output 07/19/19 07/20/19 19:00 07:00 Intake Total 800 ml Output Total 1000 ml 400 ml Balance -200 ml -400 ml Intake Oral 800 ml Output Urine Total 1000 ml 400 ml Laboratory Tests Test 07/20/19 07:35 White Blood Count 10.9 K/UL (4.8-10.8) H Red Blood Count 4.37 M/UL (4.20-5.40) Hemoglobin 13.2 G/DL (12.0-16.0) Hematocrit 38.4 % (37.0-47.0) Mean Corpuscular Volume 88 FL (80-99) Mean Corpuscular Hemoglobin 30.3 PG (27.0-31.0) Mean Corpuscular Hemoglobin Concent 34.4 G/DL (32.0-36.0) Red Cell Distribution Width 13.4 % (11.6-14.8) Platelet Count 229 K/UL (150-450) Mean Platelet Volume 5.4 FL (6.5-10.1) L Neutrophils (%) (Auto) 79.5 % (45.0-75.0) H Lymphocytes (%) (Auto) 8.4 % (20.0-45.0) L Monocytes (%) (Auto) 10.1 % (1.0-10.0) H Eosinophils (%) (Auto) 1.1 % (0.0-3.0) Basophils (%) (Auto) 0.9 % (0.0-2.0) Sodium Level 136 MMOL/L (136-145) Potassium Level 3.8 MMOL/L (3.5-5.1) Chloride Level 97 MMOL/L (98-107) L Carbon Dioxide Level 36 MMOL/L (21-32) H Anion Gap 3 mmol/L (5-15) L Blood Urea Nitrogen 10 mg/dL (7-18) Creatinine 0.6 MG/DL (0.55-1.30) Estimat Glomerular Filtration Rate mL/min (>60) Glucose Level 150 MG/DL (74-106) H Calcium Level 9.0 MG/DL (8.5-10.1) Microbiology Date/Time Source Procedure Growth Status 07/18/19 16:00 Nasopharynx - Final Complete 07/18/19 16:00 Nasopharynx - Final Complete Josesito Paulino MD Jul 20, 2019 19:43
--- NOTE | 2019-07-20 19:57 | NUR ---
NURSE NOTES: Received pt from JAMEE Stinson. Pt awake alert, and talkative. Bed in lowest position. Call light within reach. Will continue to monitor.
[2019-07-20 20:00] VITALS: BP 109/75
[2019-07-20] MEDS: Sennosides 8.6mg tab ORAL SCH (21:40)
[2019-07-20] MEDS: Zolpidem 5mg tab ORAL PRN (21:45)
--- NOTE | 2019-07-20 22:15 | Progress Note ---
DATE: 07/20/2019 SUBJECTIVE: This is a 73-year-old female patient. The patient has back pain, confusion, disorganized thought process that is why her attending physician has requested daily psychiatric consultation because she has increased mood lability and disorganized thought process worsened by stress of her medical illness. MENTAL STATUS EXAMINATION: The patient is a 73-year-old female. Appearance is disheveled. Attitude, irritable and agitated. Affect, guarded and restricted. Intellect poor. Mood, depressed and anxious. Motor activity, psychomotor agitation. Attention span is poor. Orientation x2. Speech is low volume and slurred. Insight and judgment is poor. DIAGNOSIS: Bipolar 2. PLAN: Treat her patient with Namenda 5 mg twice a day, Zoloft 50 mg a day, Remeron 15 at bedtime, Ativan 0.5 mg every 6 hours p.r.n. anxiety and agitation. A 20 minutes of insight-oriented psychotherapy and cognitive behavioral therapy to help identify automatic negative thoughts, help convert negative thoughts to more positive thoughts to reduce depression, anxiety, mood lability. Chart reviewed. Discussed with staff. Seen and assessed at bedside. Filipe Yen M.D. DR: Shine JOB#: [id number] CC:
[2019-07-21] VITALS: BP 124/65
[2019-07-21] MEDS: Albuterol/Ipratropium 3ml neb HHN PRN ×2 (03:33→07:19)
[2019-07-21] MEDS: HYDROcodone/Acetamin 7.5/325 tab ORAL PRN ×5 (03:50→21:22)
[2019-07-21 04:00] VITALS: BP 134/58
[2019-07-21] MEDS: NovoLOG Insulin Flexpen SUBQ SCH ×4 (06:30→20:56)
[2019-07-21 06:53] LABS: BASOPHILS % (AUTO) 1.5 % (0.0-2.0); EOSINOPHILS % (AUTO) 1.6 % (0.0-3.0); HEMATOCRIT 36.9 % (37.0-47.0); HEMOGLOBIN 12.7 G/DL (12.0-16.0); LYMPHOCYTES % (AUTO) 12.5 % (20.0-45.0); MEAN CORPUSCULAR VOLUME 88 FL (80-99); MONOCYTES % (AUTO) 11.7 % (1.0-10.0); NEUTROPHILS % (AUTO) 72.8 % (45.0-75.0); PLATELET COUNT 240 K/UL (150-450); RED CELL DISTRIBUTION WIDTH 13.5 % (11.6-14.8); WHITE BLOOD COUNT 8.4 K/UL (4.8-10.8)
[2019-07-21 07:09] LABS: ALANINE AMINOTRANSFERASE 31 U/L (12-78); ALBUMIN 2.5 G/DL (3.4-5.0); ALBUMIN/GLOBULIN RATIO 0.7 (1.0-2.7); ALKALINE PHOSPHATASE 59 U/L (46-116); ANION GAP 3 mmol/L (5-15); ASPARTATE AMINO TRANSFERASE 18 U/L (15-37); BILIRUBIN,TOTAL 0.5 MG/DL (0.2-1.0); BLOOD UREA NITROGEN 8 mg/dL (7-18); CALCIUM 8.8 MG/DL (8.5-10.1); CARBON DIOXIDE 36 MMOL/L (21-32); CHLORIDE 98 MMOL/L (98-107); CREATININE 0.6 MG/DL (0.55-1.30); POTASSIUM 3.7 MMOL/L (3.5-5.1); SODIUM 137 MMOL/L (136-145)
--- NOTE | 2019-07-21 07:50 | NUR ---
HAND-OFF: Report given to JAMEE Sosa. Pt stable.
[2019-07-21 08:00] VITALS: BP 132/72
--- NOTE | 2019-07-21 08:00 | NUR ---
NURSE NOTES: Patient stable AOx4 complaining of shortness of breath. Breathing treatment just given. RR even with audible Rhonchi and increased WOB. Pt on bariatric bed. Patient changed, turned and bed bath given at this time. Side rails up x2, call light within reach, bed low and locked. Will continue to monitor.
[2019-07-21] MEDS: Aspirin Baby 81mg ORAL SCH (08:37)
[2019-07-21] MEDS: Docusate 100mg cap ORAL SCH ×2 (08:37→17:01)
[2019-07-21] MEDS: Memantine 5 MG TAB ORAL SCH ×2 (08:38→17:01)
[2019-07-21] MEDS: Sertraline 50mg tab ORAL SCH (08:38)
[2019-07-21] MEDS: Theophylline ER 100mg ORAL SCH ×2 (08:38→20:55)
[2019-07-21] MEDS: dilTIAZem HCl 30mg tab ORAL SCH ×4 (08:39→20:55)
[2019-07-21] MEDS: Enoxaparin 40mg Inj SUBQ SCH (08:40)
--- NOTE | 2019-07-21 09:09 | NUR ---
RADIOLOGY DEPT., CHEST X-RAY DONE.-P.DYE
--- NOTE | 2019-07-21 09:19 | NUR ---
CASE MANAGEMENT:REVIEW 07/21/19 SI: PNA. COPD. CHF 98.1 118 22 132/72 93% ON 8L/40% VIA MASK CO2+36 GLUCOSE+142 BNP+445 IS: IV ROCEPHIN Q24 ASA PO QD ZOLOFT PO QD PROTONIX PO QAM MUCOMYST INH Q8HRS PULMICORT HHN Q12HRS REMERON PO QHS RUBINA-DUR PO Q12 CARDIZEM PO BID : NOW ON TELEMETRY DCP: PATIENT IS FROM [facility]
--- NOTE | 2019-07-21 10:12 | General Progress Note ---
Assessment/Plan Problem List: (1) HTN (hypertension) ICD Codes: I10 - Essential (primary) hypertension SNOMED: 71328179 (2) COPD (chronic obstructive pulmonary disease) ICD Codes: J44.9 - Chronic obstructive pulmonary disease, unspecified SNOMED: 82186130 (3) Hypothyroidism ICD Codes: E03.9 - Hypothyroidism, unspecified SNOMED: 27525569 (4) Peripheral edema ICD Codes: R60.9 - Edema, unspecified SNOMED: 585424513 Status: stable, progressing Assessment/Plan: pt dit o2 pulm tx bp bs control cbc bmp in am dc plan Subjective Constitutional: Reports: weakness Allergies: Coded Allergies: HALOPERIDOL (Verified Allergy, Unknown, 06/16/17) All Systems: reviewed and negative except above Subjective pulm tx c/o lbp Objective Last 24 Hour Vital Signs Date Time Temp Pulse Resp B/P (MAP) Pulse Ox O2 Delivery O2 Flow Rate FiO2 07/21/19 09:00 Simple Mask 5.0 07/21/19 08:39 118 132/72 07/21/19 08:00 128 07/21/19 08:00 98.1 118 22 132/72 (92) 93 07/21/19 07:23 68 20 97 Simple Mask 8.0 40 62 20 94 07/21/19 07:23 94 Simple Mask 8.0 40 07/21/19 04:29 131 07/21/19 04:00 98.1 92 18 134/58 (83) 98 07/21/19 00:00 97.9 131 18 124/65 (84) 97 07/21/19 00:00 110 07/20/19 23:26 70 20 98 Simple Mask 8.0 40 65 20 95 07/20/19 21:36 98 20 96 Simple Mask 5.0 40 95 20 92 07/20/19 21:00 Simple Mask 5.0 07/20/19 20:00 97.6 104 18 109/75 (86) 98 07/20/19 20:00 113 07/20/19 19:39 95 Simple Mask 8.0 40 07/20/19 19:37 109 22 97 Simple Mask 8.0 40 107 22 94 07/20/19 17:13 103 140/61 07/20/19 16:00 97.9 103 20 140/61 (87) 94 07/20/19 15:48 109 22 96 Simple Mask 8.0 40 110 22 95 07/20/19 12:13 98.7 07/20/19 12:00 98.6 110 22 121/77 (92) 97 07/20/19 10:42 101 20 97 Simple Mask 5.0 40 98 20 92 Intake and Output 07/20/19 07/21/19 19:00 07:00 Output Total 300 ml Balance -300 ml Output Urine Total 300 ml # Voids 3 Laboratory Tests 07/21/19 05:30: White Blood Count 8.4, Red Blood Count 4.20, Hemoglobin 12.7, Hematocrit 36.9L, Mean Corpuscular Volume 88, Mean Corpuscular Hemoglobin 30.3, Mean Corpuscular Hemoglobin Concent 34.5, Red Cell Distribution Width 13.5, Platelet Count 240, Mean Platelet Volume 5.6L, Neutrophils (%) (Auto) 72.8, Lymphocytes (%) (Auto) 12.5L, Monocytes (%) (Auto) 11.7H, Eosinophils (%) (Auto) 1.6, Basophils (%) ( Auto) 1.5, Sodium Level 137, Potassium Level 3.7, Chloride Level 98, Carbon Dioxide Level 36H, Anion Gap 3L, Blood Urea Nitrogen 8, Creatinine 0.6, Estimat Glomerular Filtration Rate , Glucose Level 142H, Calcium Level 8.8, Total Bilirubin 0.5, Aspartate Amino Transf (AST/SGOT) 18, Alanine Aminotransferase ( ALT/SGPT) 31, Alkaline Phosphatase 59, Pro-B-Type Natriuretic Peptide 445H, Total Protein 6.3L, Albumin 2.5L, Globulin 3.8, Albumin/Globulin Ratio 0.7L Height (Feet): 5 Height (Inches): 5.00 Weight (Pounds): 398 General Appearance: lethargic EENT: normal ENT inspection Neck: normal alignment Cardiovascular: normal peripheral pulses, normal rate, regular rhythm Respiratory/Chest: chest wall non-tender, lungs clear, normal breath sounds Abdomen: normal bowel sounds, non tender, soft Extremities: normal inspection Edema: no edema noted Arm (L), no edema noted Arm (R), no edema noted Leg (L), no edema noted Leg (R), no edema noted Pedal (L), no edema noted Pedal (R), no edema noted Generalized Neurologic: motor weakness Skin: normal pigmentation, warm/dry Bill Lane DO Jul 21, 2019 10:12
[2019-07-21] MEDS: Budesonide HHN 0.25mg/2ml ud HHN SCH ×2 (10:15→21:55)
--- NOTE | 2019-07-21 10:27 | NUR ---
NURSE NOTES: Dr. Paulino notified that patient is in afib with HR 143 and as highest as 168. Orders recieved for EKG and BP
--- NOTE | 2019-07-21 11:08 | NUR ---
NURSE NOTES: Patient found to be in afib with rvr on 12 lead EKG. Order received for Cardizem 10mg IVP. Will give andreina
[2019-07-21] MEDS ORDERED: dilTIAZem HCl 25mg/5ml Inj IVP SCH (11:15)
--- NOTE | 2019-07-21 11:41 | Pulmonology Progress Note ---
Assessment/Plan Problems: (1) Collapse of left lung (2) COPD (chronic obstructive pulmonary disease) (3) Peripheral edema (4) MELVIN (obstructive sleep apnea) (5) Schizophrenia (6) Morbid obesity (7) HTN (hypertension) (8) Hypothyroidism Assessment/Plan cxr reviewed, Left lung is totally opacified => positional therapy at right => repeat cxr in am add some laxis respiratory treatment continue supplemental oxygen symptomatic treatment titrate fio2 to sat of 92% Subjective Interval Events: still short of breath Allergies: Coded Allergies: HALOPERIDOL (Verified Allergy, Unknown, 06/16/17) Objective Last 24 Hour Vital Signs Date Time Temp Pulse Resp B/P (MAP) Pulse Ox O2 Delivery O2 Flow Rate FiO2 07/21/19 11:34 121 112/78 07/21/19 10:34 90 20 96 Simple Mask 8.0 40 07/21/19 10:17 96 20 97 Simple Mask 5.0 40 90 20 94 07/21/19 09:00 Simple Mask 5.0 07/21/19 08:39 118 132/72 07/21/19 08:00 128 07/21/19 08:00 98.1 118 22 132/72 (92) 93 07/21/19 07:23 68 20 97 Simple Mask 8.0 40 62 20 94 07/21/19 07:23 94 Simple Mask 8.0 40 07/21/19 04:29 131 07/21/19 04:00 98.1 92 18 134/58 (83) 98 07/21/19 00:00 97.9 131 18 124/65 (84) 97 07/21/19 00:00 110 07/20/19 23:26 70 20 98 Simple Mask 8.0 40 65 20 95 07/20/19 21:36 98 20 96 Simple Mask 5.0 40 95 20 92 07/20/19 21:00 Simple Mask 5.0 07/20/19 20:00 97.6 104 18 109/75 (86) 98 07/20/19 20:00 113 07/20/19 19:39 95 Simple Mask 8.0 40 07/20/19 19:37 109 22 97 Simple Mask 8.0 40 107 22 94 07/20/19 17:13 103 140/61 07/20/19 16:00 97.9 103 20 140/61 (87) 94 07/20/19 15:48 109 22 96 Simple Mask 8.0 40 110 22 95 07/20/19 12:13 98.7 07/20/19 12:00 98.6 110 22 121/77 (92) 97 Intake and Output 07/20/19 07/21/19 18:59 06:59 Output Total 300 ml Balance -300 ml Output Urine Total 300 ml # Voids 3 General Appearance: other - extreme overweight HEENT: normocephalic Respiratory/Chest: chest wall non-tender Breasts: no masses Cardiovascular: normal peripheral pulses Abdomen: soft, non tender Genitourinary: normal external genitalia Extremities: no cyanosis Skin: no rash Microbiology Date/Time Source Procedure Growth Status 07/18/19 16:00 Nasopharynx - Final Complete 07/18/19 16:00 Nasopharynx - Final Complete Laboratory Tests 07/21/19 05:30: White Blood Count 8.4, Red Blood Count 4.20, Hemoglobin 12.7, Hematocrit 36.9L, Mean Corpuscular Volume 88, Mean Corpuscular Hemoglobin 30.3, Mean Corpuscular Hemoglobin Concent 34.5, Red Cell Distribution Width 13.5, Platelet Count 240, Mean Platelet Volume 5.6L, Neutrophils (%) (Auto) 72.8, Lymphocytes (%) (Auto) 12.5L, Monocytes (%) (Auto) 11.7H, Eosinophils (%) (Auto) 1.6, Basophils (%) ( Auto) 1.5, Sodium Level 137, Potassium Level 3.7, Chloride Level 98, Carbon Dioxide Level 36H, Anion Gap 3L, Blood Urea Nitrogen 8, Creatinine 0.6, Estimat Glomerular Filtration Rate , Glucose Level 142H, Calcium Level 8.8, Total Bilirubin 0.5, Aspartate Amino Transf (AST/SGOT) 18, Alanine Aminotransferase ( ALT/SGPT) 31, Alkaline Phosphatase 59, Pro-B-Type Natriuretic Peptide 445H, Total Protein 6.3L, Albumin 2.5L, Globulin 3.8, Albumin/Globulin Ratio 0.7L Current Medications Medications (Trade) Dose Ordered Sig/Marleni Route PRN Reason Start Time Stop Time Status Last Admin Dose Admin Acetaminophen (Tylenol) 650 mg Q6H PRN ORAL Mild Pain/Temp > 100.5 07/20/19 16:14 08/19/19 16:13 Acetaminophen/ Hydrocodone Bitart ([place] 5/325) 1 tab Q6H PRN ORAL Moderate Pain (Pain Scale 4-6) 07/20/19 16:15 07/27/19 16:14 07/20/19 21:44 Acetaminophen/ Hydrocodone Bitart ([place] 7.5/325) 1 tab Q4H PRN ORAL Severe Pain (Pain Scale 7-10) 07/20/19 16:15 07/27/19 16:14 07/21/19 08:46 Acetylcysteine (Mucomyst) 400 mg Q8HRT INH 07/20/19 23:00 08/15/19 07:29 07/21/19 07:19 Albuterol/ Ipratropium (Albuterol/ Ipratropium) 3 ml Q4H PRN HHN shortness of breath 07/20/19 16:20 07/25/19 16:19 07/21/19 07:19 Aspirin (ASA) 81 mg DAILY ORAL 07/21/19 09:00 08/15/19 08:59 07/21/19 08:37 Budesonide (Pulmicort) 0.5 mg Q12HRT HHN 07/20/19 22:00 08/15/19 09:59 07/21/19 10:15 Ceftriaxone Sodium 1 gm/ Dextrose 55 ml @ 110 mls/hr Q24H IVPB 07/21/19 14:00 07/25/19 13:59 Dextrose (Dextrose 50%) 25 ml Q30M PRN IV Hypoglycemia 07/20/19 16:30 08/15/19 07:29 Dextrose (Dextrose 50%) 50 ml Q30M PRN IV Hypoglycemia 07/20/19 16:30 08/15/19 07:29 Diltiazem HCl (Cardizem) 10 mg ONCE IVP 07/21/19 11:15 07/21/19 12:00 07/21/19 11:34 Diltiazem HCl (Cardizem) 30 mg BID ORAL 07/20/19 18:00 08/17/19 17:59 07/21/19 08:39 Docusate Sodium (Colace) 100 mg TWICE A DAY ORAL 07/20/19 18:00 08/15/19 08:59 07/21/19 08:37 Enoxaparin Sodium (Lovenox) 40 mg DAILY SUBQ 07/21/19 09:00 08/18/19 08:59 07/21/19 08:40 Gabapentin (Neurontin) 300 mg THREE TIMES A DAY ORAL 07/20/19 18:00 08/15/19 08:59 07/21/19 08:37 Guaifenesin (Robitussin) 200 mg Q4H PRN ORAL FOR COUGH 07/20/19 16:15 08/19/19 16:14 Insulin Aspart (NovoLOG) BEFORE MEALS AND HS SUBQ 07/20/19 16:30 08/15/19 11:29 Lorazepam (Ativan) 0.5 mg Q6H PRN ORAL For Anxiety 07/20/19 16:16 07/27/19 16:15 Memantine (Namenda) 5 mg BID ORAL 07/20/19 18:00 08/15/19 08:59 07/21/19 08:38 Mirtazapine (Remeron) 15 mg BEDTIME ORAL 07/20/19 21:00 08/15/19 20:59 07/20/19 21:40 Morphine Sulfate (Morphine Sulfate) 2 mg Q4H PRN IVP Severe Breakthru Pain (>7) 07/20/19 16:16 07/27/19 16:15 Naloxone HCl (Narcan) 0.1 mg PRN PRN IV Sedation scale 3 or 4 07/20/19 16:16 07/27/19 16:15 Pantoprazole (Protonix) 40 mg BEFORE BREAKFAST ORAL 07/21/19 06:30 08/16/19 06:29 Promethazine HCl/ Codeine (Phenergan with Codeine) 5 ml Q4H PRN ORAL For Cough 07/20/19 16:16 08/19/19 16:15 Sennosides (Senokot) 8.6 mg QHS ORAL 07/20/19 21:00 08/15/19 20:59 07/20/19 21:40 Sertraline HCl (Zoloft) 50 mg DAILY ORAL 07/21/19 09:00 08/15/19 08:59 07/21/19 08:38 Theophylline ([place]-Dur) 100 mg EVERY 12 HOURS ORAL 07/20/19 21:00 08/16/19 20:59 07/21/19 08:38 Zolpidem Tartrate (Ambien) 5 mg BEDTIME PRN ORAL Insomnia 07/20/19 16:17 07/27/19 16:16 07/20/19 21:45 Fartun Gan MD Jul 21, 2019 11:41
[2019-07-21 12:00] VITALS: BP 119/82
--- NOTE | 2019-07-21 12:15 | NUR ---
NURSE NOTES: Dr. Paulino informed that no significant change was seen in pt condition. New orders received.
--- NOTE | 2019-07-21 12:53 | Diagnostic Imaging Report ---
Indication: Dyspnea Comparison: 07/20/2019 A single view chest radiograph was obtained. Findings: There is no change. There is complete opacification of the left hemithorax. The right lung show some vascular prominence. IMPRESSION: Opacified left hemithorax unchanged. Pulmonary vascular congestion suspected
--- NOTE | 2019-07-21 13:00 | NUR ---
NURSE NOTES: Patient complaining of numbness to RT leg. Leg reposition but numbness persists. When hand placed on patient she reported only feeling pressure but no sensation. Patient did not feel pain stimuli to BL feet. Dr. Lane, Dr. Gan and Dr. Nash aware.
--- NOTE | 2019-07-21 13:38 | NUR ---
RD ASSESSMENT & RECOMMENDATIONS SEE CARE ACTIVITY FOR COMPLETE ASSESSMENT DAILY ESTIMATED NEEDS: Needs based on Obesity, pulmonary, cardiac /Adj wt 81kg 20-23 kcals/kg 8544-2833 total kcals 1-1.5 g protein/kg 81-122 g total protein 20-25 mL/kg 0432-7337 total fluid mLs NUTRITION DIAGNOSIS: 1) Morbid obesity R/T lifestyle factors? excessive energy? as evidenced by BMI >50, pt is 283% of Gre[place] Body Weight. CURRENT DIET:FARA, CCHO MED/ mech soft ground PO DIET RECOMMENDATIONS: Cardiac/ CCHO LOW, texture per [employer] ADDITIONAL RECOMMENDATIONS: 1) Calibrated bedscale wt for accurate CBW ABLE- pt on bariatric bed 2) Consider [employer] eval for appropriate texture 3) Rec HgA1C for eval 4) Monitor BM regularity: pt c/o constipation, last recorded BM on 2/3 - pt on Colace BID + Senokot qhs
[2019-07-21] MEDS: cefTRIAXone 1 GM in D5W 55 ML IVPB SCH (13:47)
[2019-07-21] MEDS ORDERED: fentaNYL Destruction MISC SCH (13:59)
--- NOTE | 2019-07-21 14:00 | NUR ---
NURSE NOTES: Patient refused turning and cleaning x2 stating she is hurting too much and does not want to be in pain.
--- NOTE | 2019-07-21 15:00 | Progress Note ---
DATE: 07/21/2019 SUBJECTIVE: This is a 73-year-old female patient. This patient is confused and disorganized. She has altered mental status, disorganized thought process, decline in cognition below baseline. That is why, her attending physician has requested daily psychiatric consultation. She has decline in cognition below baseline. She has confusion, pain, disorganized thought process. MENTAL STATUS EXAMINATION: This is a 73-year-old female. Appearance is disheveled. Attitude, irritable and agitated. Affect, guarded and restricted. Intellect poor. Mood, depressed and anxious. Motor activity, psychomotor agitation. Attention span is poor. Orientation x2. Speech is slightly pressured. Thought process, disorganized and illogical. Insight and judgment is poor. DIAGNOSIS: Bipolar 2. PLAN: Treat her with Namenda 5 mg twice a day, Zoloft 50 mg daily, Remeron 15 at bedtime, Ativan 0.5 mg every 6 hours p.r.n. anxiety and agitation. A 20 minutes of cognitive behavioral therapy to help identify automatic negative thoughts, help her convert negative thoughts to more positive thoughts to reduce depression, anxiety, mood lability, help her have more adaptive behavioral pattern and better impulse control on the unit. Chart reviewed. Discussed with staff. Seen and assessed at bedside. Filipe Yen M.D. DR: MONTRELL JOB#: [id number] CC:
[2019-07-21] MEDS: Levalbuterol Inh UD 1.25mg/0.5ml HHN SCH ×3 (15:25→23:05)
[2019-07-21 16:00] VITALS: BP 107/60
--- NOTE | 2019-07-21 16:18 | Diagnostic Imaging Report ---
Indication: Evaluation of the pleural effusion dyspnea Technique: Grayscale and duplex Doppler imaging of the chest performed. Comparison: None Findings: There is no pleural effusion on either side. IMPRESSION: No pleural effusion
--- NOTE | 2019-07-21 19:28 | Infectious Diseases Prog Note ---
Assessment/Plan Assessment/Plan Assessment: Sepsis Early PNA CHF L lung collapse -07/21 US Chest:No pleural effusion -07/20 CXR: Complete opacification of left hemithorax at least partly due to atelectasis. Some volume loss noted.Congestive heart failure. -07/18 CXR: Suspected left perihilar infiltrate. Correlate clinically. Slightly worsening CH -07/15 CXR: Limited hypoventilatory exam. Prominence of the central bronchovascular structures may be in part due to low lung volumes. -influenza sc neg, sp cx normal resp frank Leukocytosis, SP Afebrile REcent Abdominal wall cellulitis (L side) and L mastitis; still ongoing CHF exacerbation Intractable Back pain MELVIN hx of aspiration PNA morbid obesity CAD/GA CHF HTN hypothryoidism hx of abdominal wall cellulitis MDD w/ psychotic features peripheral neuropathy s/p cholecystectomy s/p hysterectomy s/p appendectomy tobacco abuse HLD Dm2 COPD [place] resident VRE and MRSA colonized Plan: -Continue Ceftriaxone #09/18 for PNA and cellulitis -07/19 SP IV Vancomycin #2 -f/u cx -Monitor CBC/CMP, temperatares -aspiration precautions -Pulm f/u Thank you for consulting [facility]. Will continue to follow along with you. Discussed with RN. Subjective Allergies: Coded Allergies: HALOPERIDOL (Verified Allergy, Unknown, 06/16/17) Subjective afebrile leukocytosis resolved Objective Vital Signs Last 24 Hour Vital Signs Date Time Temp Pulse Resp B/P (MAP) Pulse Ox O2 Delivery O2 Flow Rate FiO2 07/21/19 19:02 94 Simple Mask 8.0 40 07/21/19 18:59 98 20 98 Simple Mask 5.0 40 99 20 94 07/21/19 17:02 101 107/60 07/21/19 16:00 127 07/21/19 16:00 97.5 101 22 107/60 (76) 96 07/21/19 15:26 111 20 98 Simple Mask 8.0 40 102 20 98 07/21/19 12:24 127 119/82 07/21/19 12:00 98.1 127 22 119/82 (94) 95 07/21/19 12:00 137 07/21/19 11:36 135 07/21/19 11:34 121 112/78 07/21/19 10:34 90 20 96 Simple Mask 8.0 40 07/21/19 10:17 96 20 97 Simple Mask 5.0 40 90 20 94 07/21/19 09:00 Simple Mask 5.0 07/21/19 08:39 118 132/72 07/21/19 08:00 128 07/21/19 08:00 98.1 118 22 132/72 (92) 93 07/21/19 07:23 68 20 97 Simple Mask 8.0 40 62 20 94 07/21/19 07:23 94 Simple Mask 8.0 40 07/21/19 04:29 131 07/21/19 04:00 98.1 92 18 134/58 (83) 98 07/21/19 00:00 97.9 131 18 124/65 (84) 97 07/21/19 00:00 110 07/20/19 23:26 70 20 98 Simple Mask 8.0 40 65 20 95 07/20/19 21:36 98 20 96 Simple Mask 5.0 40 95 20 92 07/20/19 21:00 Simple Mask 5.0 07/20/19 20:00 97.6 104 18 109/75 (86) 98 07/20/19 20:00 113 07/20/19 19:39 95 Simple Mask 8.0 40 07/20/19 19:37 109 22 97 Simple Mask 8.0 40 107 22 94 Height (Feet): 5 Height (Inches): 5.00 Weight (Pounds): 398 Objective GENERAL: Slightly anxious, O2 in place, slight short of breath in bed.. CARDIOVASCULAR: No murmur. LUNGS: Poor air exchange. ABDOMEN: Bowel sounds distant. EXTREMITIES: No cyanosis or clubbing. 1+ edema. NEUROLOGIC: The patient is moving all extremities, slightly weak. Laboratory Tests Test 07/21/19 05:30 White Blood Count 8.4 K/UL (4.8-10.8) Red Blood Count 4.20 M/UL (4.20-5.40) Hemoglobin 12.7 G/DL (12.0-16.0) Hematocrit 36.9 % (37.0-47.0) L Mean Corpuscular Volume 88 FL (80-99) Mean Corpuscular Hemoglobin 30.3 PG (27.0-31.0) Mean Corpuscular Hemoglobin Concent 34.5 G/DL (32.0-36.0) Red Cell Distribution Width 13.5 % (11.6-14.8) Platelet Count 240 K/UL (150-450) Mean Platelet Volume 5.6 FL (6.5-10.1) L Neutrophils (%) (Auto) 72.8 % (45.0-75.0) Lymphocytes (%) (Auto) 12.5 % (20.0-45.0) L Monocytes (%) (Auto) 11.7 % (1.0-10.0) H Eosinophils (%) (Auto) 1.6 % (0.0-3.0) Basophils (%) (Auto) 1.5 % (0.0-2.0) Sodium Level 137 MMOL/L (136-145) Potassium Level 3.7 MMOL/L (3.5-5.1) Chloride Level 98 MMOL/L (98-107) Carbon Dioxide Level 36 MMOL/L (21-32) H Anion Gap 3 mmol/L (5-15) L Blood Urea Nitrogen 8 mg/dL (7-18) Creatinine 0.6 MG/DL (0.55-1.30) Estimat Glomerular Filtration Rate mL/min (>60) Glucose Level 142 MG/DL (74-106) H Calcium Level 8.8 MG/DL (8.5-10.1) Total Bilirubin 0.5 MG/DL (0.2-1.0) Aspartate Amino Transf (AST/SGOT) 18 U/L (15-37) Alanine Aminotransferase (ALT/SGPT) 31 U/L (12-78) Alkaline Phosphatase 59 U/L (46-116) Pro-B-Type Natriuretic Peptide 445 pg/mL (0-125) H Total Protein 6.3 G/DL (6.4-8.2) L Albumin 2.5 G/DL (3.4-5.0) L Globulin 3.8 g/dL Albumin/Globulin Ratio 0.7 (1.0-2.7) L Current Medications Medications (Trade) Dose Ordered Sig/Marleni Route PRN Reason Start Time Stop Time Status Last Admin Dose Admin Acetaminophen (Tylenol) 650 mg Q6H PRN ORAL Mild Pain/Temp > 100.5 07/20/19 16:14 08/19/19 16:13 Acetaminophen/ Hydrocodone Bitart ([place] 5/325) 1 tab Q6H PRN ORAL Moderate Pain (Pain Scale 4-6) 07/20/19 16:15 07/27/19 16:14 07/20/19 21:44 Acetaminophen/ Hydrocodone Bitart ([place] 7.5/325) 1 tab Q4H PRN ORAL Severe Pain (Pain Scale 7-10) 07/20/19 16:15 07/27/19 16:14 07/21/19 17:02 Acetylcysteine (Mucomyst) 400 mg Q8HRT INH 07/20/19 23:00 08/15/19 07:29 07/21/19 15:25 Aspirin (ASA) 81 mg DAILY ORAL 07/21/19 09:00 08/15/19 08:59 07/21/19 08:37 Budesonide (Pulmicort) 0.5 mg Q12HRT HHN 07/20/19 22:00 08/15/19 09:59 07/21/19 10:15 Ceftriaxone Sodium 1 gm/ Dextrose 55 ml @ 110 mls/hr Q24H IVPB 07/21/19 14:00 07/25/19 13:59 07/21/19 13:47 Dextrose (Dextrose 50%) 25 ml Q30M PRN IV Hypoglycemia 07/20/19 16:30 08/15/19 07:29 Dextrose (Dextrose 50%) 50 ml Q30M PRN IV Hypoglycemia 07/20/19 16:30 08/15/19 07:29 Diltiazem HCl (Cardizem) 30 mg QID ORAL 07/21/19 13:00 08/20/19 12:59 07/21/19 17:02 Docusate Sodium (Colace) 100 mg TWICE A DAY ORAL 07/20/19 18:00 08/15/19 08:59 07/21/19 17:01 Enoxaparin Sodium (Lovenox) 40 mg DAILY SUBQ 07/21/19 09:00 08/18/19 08:59 07/21/19 08:40 Furosemide (Lasix) 20 mg EVERY 6 HOURS IV 07/21/19 12:00 08/20/19 11:59 07/21/19 17:02 Gabapentin (Neurontin) 300 mg THREE TIMES A DAY ORAL 07/20/19 18:00 08/15/19 08:59 07/21/19 17:01 Guaifenesin (Robitussin) 200 mg Q4H PRN ORAL FOR COUGH 07/20/19 16:15 08/19/19 16:14 Insulin Aspart (NovoLOG) BEFORE MEALS AND HS SUBQ 07/20/19 16:30 08/15/19 11:29 Levalbuterol HCl (Xopenex) 1.25 mg Q4HRT HHN 07/21/19 14:00 07/26/19 13:59 07/21/19 18:58 Lorazepam (Ativan) 0.5 mg Q6H PRN ORAL For Anxiety 07/20/19 16:16 07/27/19 16:15 Memantine (Namenda) 5 mg BID ORAL 07/20/19 18:00 08/15/19 08:59 07/21/19 17:01 Mirtazapine (Remeron) 15 mg BEDTIME ORAL 07/20/19 21:00 08/15/19 20:59 07/20/19 21:40 Morphine Sulfate (Morphine Sulfate) 2 mg Q4H PRN IVP Severe Breakthru Pain (>7) 07/20/19 16:16 07/27/19 16:15 Naloxone HCl (Narcan) 0.1 mg PRN PRN IV Sedation scale 3 or 4 07/20/19 16:16 07/27/19 16:15 Pantoprazole (Protonix) 40 mg BEFORE BREAKFAST ORAL 07/21/19 06:30 08/16/19 06:29 Promethazine HCl/ Codeine (Phenergan with Codeine) 5 ml Q4H PRN ORAL For Cough 07/20/19 16:16 08/19/19 16:15 Sennosides (Senokot) 8.6 mg QHS ORAL 07/20/19 21:00 08/15/19 20:59 07/20/19 21:40 Sertraline HCl (Zoloft) 50 mg DAILY ORAL 07/21/19 09:00 08/15/19 08:59 07/21/19 08:38 Theophylline (P[place]-Dur) 100 mg EVERY 12 HOURS ORAL 07/20/19 21:00 08/16/19 20:59 07/21/19 08:38 Zolpidem Tartrate (Ambien) 5 mg BEDTIME PRN ORAL Insomnia 07/20/19 16:17 07/27/19 16:16 07/20/19 21:45 Ange Grant M.D. Jul 21, 2019 19:28
--- NOTE | 2019-07-21 19:35 | Cardiology Progress Note ---
Assessment/Plan Assessment/Plan hypertension, hypothyroidism, peripheral neuropathy, lumbar degenerative joint disease, radiculopathy diabetes mellitus COPD multifocal atrial tachycardia hhn oxygen cpap abx tele reviewed c/w mat not afib ekg echo noted tds dvt ppx steroids i was clled multipl time for afib but trn out that she has MAT d/w neuro Subjective Cardiovascular: Reports: palpitations - sometiems ; Denies: chest pain, lightheadedness Respiratory: Reports: cough, shortness of breath Gastrointestinal/Abdominal: Reports: abdominal pain Genitourinary: Reports: burning Objective Last 24 Hour Vital Signs Date Time Temp Pulse Resp B/P (MAP) Pulse Ox O2 Delivery O2 Flow Rate FiO2 07/21/19 19:02 94 Simple Mask 8.0 40 07/21/19 18:59 98 20 98 Simple Mask 5.0 40 99 20 94 07/21/19 17:02 101 107/60 07/21/19 16:00 127 07/21/19 16:00 97.5 101 22 107/60 (76) 96 07/21/19 15:26 111 20 98 Simple Mask 8.0 40 102 20 98 07/21/19 12:24 127 119/82 07/21/19 12:00 98.1 127 22 119/82 (94) 95 07/21/19 12:00 137 07/21/19 11:36 135 07/21/19 11:34 121 112/78 07/21/19 10:34 90 20 96 Simple Mask 8.0 40 07/21/19 10:17 96 20 97 Simple Mask 5.0 40 90 20 94 07/21/19 09:00 Simple Mask 5.0 07/21/19 08:39 118 132/72 07/21/19 08:00 128 07/21/19 08:00 98.1 118 22 132/72 (92) 93 07/21/19 07:23 68 20 97 Simple Mask 8.0 40 62 20 94 07/21/19 07:23 94 Simple Mask 8.0 40 07/21/19 04:29 131 07/21/19 04:00 98.1 92 18 134/58 (83) 98 07/21/19 00:00 97.9 131 18 124/65 (84) 97 07/21/19 00:00 110 07/20/19 23:26 70 20 98 Simple Mask 8.0 40 65 20 95 07/20/19 21:36 98 20 96 Simple Mask 5.0 40 95 20 92 07/20/19 21:00 Simple Mask 5.0 07/20/19 20:00 97.6 104 18 109/75 (86) 98 07/20/19 20:00 113 07/20/19 19:39 95 Simple Mask 8.0 40 07/20/19 19:37 109 22 97 Simple Mask 8.0 40 107 22 94 General Appearance: no apparent distress, alert, obese, patient on isolation Neck: supple Cardiovascular: irregularly irregular Respiratory/Chest: rhonchi - bilaterally Abdomen: normal bowel sounds, non tender, soft Extremities: no swelling Intake and Output 07/20/19 07/21/19 19:00 07:00 Output Total 300 ml Balance -300 ml Output Urine Total 300 ml # Voids 3 Laboratory Tests Test 07/21/19 05:30 White Blood Count 8.4 K/UL (4.8-10.8) Red Blood Count 4.20 M/UL (4.20-5.40) Hemoglobin 12.7 G/DL (12.0-16.0) Hematocrit 36.9 % (37.0-47.0) L Mean Corpuscular Volume 88 FL (80-99) Mean Corpuscular Hemoglobin 30.3 PG (27.0-31.0) Mean Corpuscular Hemoglobin Concent 34.5 G/DL (32.0-36.0) Red Cell Distribution Width 13.5 % (11.6-14.8) Platelet Count 240 K/UL (150-450) Mean Platelet Volume 5.6 FL (6.5-10.1) L Neutrophils (%) (Auto) 72.8 % (45.0-75.0) Lymphocytes (%) (Auto) 12.5 % (20.0-45.0) L Monocytes (%) (Auto) 11.7 % (1.0-10.0) H Eosinophils (%) (Auto) 1.6 % (0.0-3.0) Basophils (%) (Auto) 1.5 % (0.0-2.0) Sodium Level 137 MMOL/L (136-145) Potassium Level 3.7 MMOL/L (3.5-5.1) Chloride Level 98 MMOL/L (98-107) Carbon Dioxide Level 36 MMOL/L (21-32) H Anion Gap 3 mmol/L (5-15) L Blood Urea Nitrogen 8 mg/dL (7-18) Creatinine 0.6 MG/DL (0.55-1.30) Estimat Glomerular Filtration Rate mL/min (>60) Glucose Level 142 MG/DL (74-106) H Calcium Level 8.8 MG/DL (8.5-10.1) Total Bilirubin 0.5 MG/DL (0.2-1.0) Aspartate Amino Transf (AST/SGOT) 18 U/L (15-37) Alanine Aminotransferase (ALT/SGPT) 31 U/L (12-78) Alkaline Phosphatase 59 U/L (46-116) Pro-B-Type Natriuretic Peptide 445 pg/mL (0-125) H Total Protein 6.3 G/DL (6.4-8.2) L Albumin 2.5 G/DL (3.4-5.0) L Globulin 3.8 g/dL Albumin/Globulin Ratio 0.7 (1.0-2.7) L Josesito Paulino MD Jul 21, 2019 19:35
--- NOTE | 2019-07-21 19:42 | NUR ---
HAND-OFF: Report given to Aida MANCUSO. Patient stable. Plan of care endorsed.
--- NOTE | 2019-07-21 19:57 | NUR ---
NURSE NOTES: Received patient from JAMEE Sosa. Patient resting in bed. Patient is alert, awake and talkative. On simple mask. Bed locked, lowest position. Call light within reach. Will continue to monitor.
[2019-07-21 20:00] VITALS: BP 111/63
[2019-07-21] MEDS: Sennosides 8.6mg tab ORAL SCH (20:54)
[2019-07-21] MEDS: Zolpidem 5mg tab ORAL PRN (22:10)
[2019-07-22] VITALS: BP 130/60
--- NOTE | 2019-07-22 | Consultation ---
DATE OF CONSULTATION: 07/21/2019 CONSULTING PHYSICIAN: Samir Nash M.D. CHIEF COMPLAINT: This 73-year-old right-handed white woman with history of hypertension, diabetes for at least 3 years who was admitted for intractable back pain. The patient has had back pain for years, but over the last 2 weeks, she has had severe back pain. The back pain seems to be in the mid back and down. She also had some shortness of breath. The back pain is at least 8/10 and apparently does not go to her legs. The patient in the last couple of days could not move her right leg and it feels all the way up to at least the right hip and probably higher. The left leg she can feel, but still she cannot move the right leg and cannot move the left leg because of hip problems for several years. However, she can move her left foot. The patient has gained weight weighing over 300 pounds. She has not been able to go into an MRI. She has had hearing loss in the right ear, which is nearly complete and her left ear is "okay." There is no diplopia, dysarthria, dysphagia, facial pain, numbness, or weakness. She has occasional headaches. She has no bladder dysfunction. The patient had cholelithiasis in the past and appendicitis in the past with cholecystectomy and appendectomy. She also had a hysterectomy in the past. The patient denies any tremors or shakes and her arms are "okay" except she has had some fracture of the left upper arm. The patient's brother may have had a brain tumor. PAST MEDICAL HISTORY/PAST MEDICAL ILLNESSES: 1. Cholelithiasis with cholecystectomy. 2. Appendicitis with appendectomy. 3. COPD with a long history of tobacco abuse from the age of 28 up to several years ago pack and half of cigarettes a day. 4. Organic heart disease. 5. History of congestive heart failure. 6. Hypothyroidism 7. Degenerative joint disease. ALLERGIES: She is allergic to Haldol. MEDICATIONS: She is on pantoprazole, potassium, insulin, aspirin, enoxaparin, gabapentin, memantine, sertraline, Tylenol, hydrocodone, albuterol, zolpidem, ketorolac, lorazepam. SOCIAL HISTORY: Alcohol, she has no history of alcohol abuse. She is unmarried and has no children, but adopted a daughter. FAMILY HISTORY: Unavailable. REVIEW OF SYSTEMS: CONSTITUTIONAL: She is over 300 pounds. RESPIRATORY: She complains of shortness of breath. The rest of the review of systems except for the above is noncontributory. PHYSICAL EXAMINATION: GENERAL: She is a well-developed, extremely obese woman, lying in bed. VITAL SIGNS: Blood pressure 107/60, pulse is 101, temperature is 97.5 degrees, respiration rate is at least 20 to 24 on a pulse oximetry of 94% simple mask. HEENT: Examination of head, ears, eyes, nose, mouth, and throat reveals arcus senilis. NECK: There is no tenderness to palpation. Auscultation of the carotids is not possible. LUNGS: She has bilateral rhonchi noted. CARDIOVASCULAR: The heart tones could not be heard. ABDOMEN: Obese. Bowel sounds are decreased. There is no tenderness, masses, or organomegaly. BACK: Could not be tested. EXTREMITIES: She had some slight peripheral edema noted. She also had surgical scars on her knees. NEUROLOGIC EXAMINATION: MENTAL STATUS: Judgment could not be tested. Affect was appropriate to her mood. Memory, her past memory is intact to her date of 1945. Immediate recall is 3/3 objects. Recent recall is 0/3 objects at 5 minutes. Intellect could not be tested. Orientation - time, she thought it was 07/22/2019 and it was Wednesday. Place, she knew she was at [facility] [address] on the second floor. Person, she was oriented to person. Language function, spoken speech was fluent without paraphasias. She could spell world backwards and forwards. There is probably no right left confusion. CRANIAL NERVE EXAMINATION: CRANIAL NERVE II: Visual howard are intact to confrontation. Fundi were not visualized. CRANIAL NERVES III, IV, AND : Extraocular motility was full. Pupils are approximately 5 mm, round, and light reactive. CRANIAL NERVE V: Corneal sensation was intact to fine touch. Facial sensation was also intact to fine touch. Pterygoid strength is 5/5. CRANIAL NERVE VII: Facial strength is 5/5 bilaterally. CRANIAL NERVE VIII: Auditory acuity is significantly decreased and pretty much intact. CRANIAL NERVES IX AND X: Gag was intact bilaterally. CRANIAL NERVE XI: Sternocleidomastoid strength is 5/5. CRANIAL NERVE XII: Tongue protrudes in the midline without fasciculations or atrophy. MUSCLE EXAMINATION: Muscle bulk is impossible to tell. Tone, there was mild paratonia in the upper extremities. Decreased tone in the lower extremities. Strength was 5/5 in the upper extremities. She could move her left foot up and down and her left toe up and down. There was no proximal movement at her knee or her left hip. On the right side, there was absolutely no movement at all in the right lower extremity. REFLEXES: +1 in the upper extremities, 0 at the knees and ankles with bilateral upgoing toes on testing for Babinski response. COORDINATION: [id number] revealed a tremor throughout without dysmetria. SENSORY EXAMINATION: There is decreased sensation in the right leg all the way up the right side of the body to probably the lower mid thoracic area. Otherwise, difficult to both pinprick and fine touch although it is difficult to get a good level. There may have been some decreased sensation on the left side as well, so it was inconsistent. LABORATORY DATA: The patient has evidence for congestive heart failure on the chest x-ray of 07/18/2019. Her laboratory studies reveal that she is anemic and was admitted with a high white blood cell count and platelet counts were normal. Chemistries revealed a low anion gap. BUN was normal. Creatinine was normal. Blood sugars were mild to moderately elevated and in the 150 range maximum. Liver function tests appeared to be normal. Albumin was low. Carbon dioxide was high. Troponin was 0. EKG does not appear to have been done. 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 The patient may need MRI scan of the thoracic spine and/or CT scan of the thoracic spine. She is on antibiotics at that time, but it may not be good enough to treat this problem. cannot get an MRI of the spine at this hospital, therefore, she will have to be sent out to receive an MRI scan of the thoracic and probably a cervical spine MRI. Lumbar spine . PLAN: 1. I will speak to you about this case. 2. Sedimentation rate and C-reactive protein. 3. Continue antibiotics. Thank you for this interesting case. Samir MD Charity DR: RADHA JOB#: [id number] CC:
[2019-07-22] MEDS: Levalbuterol Inh UD 1.25mg/0.5ml HHN SCH ×6 (03:08→23:13)
[2019-07-22 04:00] VITALS: BP 120/59
[2019-07-22] MEDS: HYDROcodone/Acetamin 7.5/325 tab ORAL PRN ×3 (05:08→17:07)
--- NOTE | 2019-07-22 05:30 | NUR ---
NURSE NOTES: Called and left message for MD Domingo regarding pt's request for nausea medicine. Awaiting for call back. Will continue to monitor.
[2019-07-22] MEDS: NovoLOG Insulin Flexpen SUBQ SCH ×4 (05:35→21:00)
[2019-07-22 07:15] LABS: BASOPHILS % (AUTO) 1.4 % (0.0-2.0); EOSINOPHILS % (AUTO) 0.1 % (0.0-3.0); HEMATOCRIT 37.7 % (37.0-47.0); HEMOGLOBIN 12.7 G/DL (12.0-16.0); LYMPHOCYTES % (AUTO) 14.3 % (20.0-45.0); MEAN CORPUSCULAR VOLUME 89 FL (80-99); MONOCYTES % (AUTO) 9.5 % (1.0-10.0); NEUTROPHILS % (AUTO) 74.9 % (45.0-75.0); PLATELET COUNT 253 K/UL (150-450); RED BLOOD COUNT 4.25 M/UL (4.20-5.40); RED CELL DISTRIBUTION WIDTH 13.4 % (11.6-14.8); WHITE BLOOD COUNT 9.2 K/UL (4.8-10.8)
--- NOTE | 2019-07-22 07:39 | NUR ---
HAND-OFF: Report given to JAMEE Moon. Pt stable.
[2019-07-22 07:54] LABS: ALANINE AMINOTRANSFERASE 38 U/L (12-78); ALBUMIN 2.8 G/DL (3.4-5.0); ALBUMIN/GLOBULIN RATIO 0.9 (1.0-2.7); ALKALINE PHOSPHATASE 63 U/L (46-116); ANION GAP 4 mmol/L (5-15); ASPARTATE AMINO TRANSFERASE 24 U/L (15-37); BILIRUBIN,TOTAL 0.5 MG/DL (0.2-1.0); BLOOD UREA NITROGEN 5 mg/dL (7-18); CALCIUM 8.5 MG/DL (8.5-10.1); CARBON DIOXIDE 38 MMOL/L (21-32); CHLORIDE 97 MMOL/L (98-107); CREATININE 0.4 MG/DL (0.55-1.30); POTASSIUM 3.7 MMOL/L (3.5-5.1); SODIUM 139 MMOL/L (136-145)
[2019-07-22 08:00] VITALS: BP 101/64
--- NOTE | 2019-07-22 08:35 | General Progress Note ---
Assessment/Plan Problem List: (1) HTN (hypertension) ICD Codes: I10 - Essential (primary) hypertension SNOMED: 30605461 (2) COPD (chronic obstructive pulmonary disease) ICD Codes: J44.9 - Chronic obstructive pulmonary disease, unspecified SNOMED: 66941811 (3) Hypothyroidism ICD Codes: E03.9 - Hypothyroidism, unspecified SNOMED: 69039567 (4) Peripheral edema ICD Codes: R60.9 - Edema, unspecified SNOMED: 182026858 Status: stable, progressing Assessment/Plan: pt dit o2 pulm tx bp bs control cbc bmp in am dc plan Subjective Constitutional: Reports: weakness Allergies: Coded Allergies: HALOPERIDOL (Verified Allergy, Unknown, 06/16/17) All Systems: reviewed and negative except above Subjective pulm tx c/o lbp Objective Last 24 Hour Vital Signs Date Time Temp Pulse Resp B/P (MAP) Pulse Ox O2 Delivery O2 Flow Rate FiO2 07/22/19 08:00 98.1 113 18 101/64 (76) 93 07/22/19 07:25 113 21 99 Simple Mask 8.0 40 108 20 95 07/22/19 07:10 93 Simple Mask 8.0 40 07/22/19 04:00 97.8 108 20 120/59 (79) 96 07/22/19 03:59 116 07/22/19 03:08 77 21 98 Simple Mask 8.0 40 74 16 95 07/22/19 00:00 97.9 109 20 130/60 (83) 96 07/21/19 23:42 111 07/21/19 23:05 83 18 98 Simple Mask 8.0 40 80 20 95 07/21/19 21:56 91 20 98 Simple Mask 5.0 40 90 18 96 07/21/19 21:00 Simple Mask 5.0 07/21/19 20:55 98 111/63 07/21/19 20:10 97 07/21/19 20:00 98.1 98 20 111/63 (79) 92 07/21/19 19:02 94 Simple Mask 8.0 40 07/21/19 18:59 98 20 98 Simple Mask 5.0 40 99 20 94 07/21/19 17:02 101 107/60 07/21/19 16:00 127 07/21/19 16:00 97.5 101 22 107/60 (76) 96 07/21/19 15:26 111 20 98 Simple Mask 8.0 40 102 20 98 07/21/19 12:24 127 119/82 07/21/19 12:00 98.1 127 22 119/82 (94) 95 07/21/19 12:00 137 07/21/19 11:36 135 07/21/19 11:34 121 112/78 07/21/19 10:34 90 20 96 Simple Mask 8.0 40 07/21/19 10:17 96 20 97 Simple Mask 5.0 40 90 20 94 07/21/19 09:00 Simple Mask 5.0 07/21/19 08:39 118 132/72 Intake and Output 07/21/19 07/22/19 19:00 07:00 Intake Total 655 ml 300 ml Output Total 1300 ml Balance 655 ml -1000 ml Intake Oral 600 ml 300 ml IV Total 55 ml Output Urine Total 1300 ml # Voids 3 Laboratory Tests 07/22/19 06:30: White Blood Count 9.2, Red Blood Count 4.25, Hemoglobin 12.7, Hematocrit 37.7, Mean Corpuscular Volume 89, Mean Corpuscular Hemoglobin 29.9, Mean Corpuscular Hemoglobin Concent 33.7, Red Cell Distribution Width 13.4, Platelet Count 253, Mean Platelet Volume 5.4L, Neutrophils (%) (Auto) 74.9, Lymphocytes (%) (Auto) 14.3L, Monocytes (%) (Auto) 9.5, Eosinophils (%) (Auto) 0.1, Basophils (%) (Auto ) 1.4, Sodium Level 139, Potassium Level 3.7, Chloride Level 97L, Carbon Dioxide Level 38H, Anion Gap 4L, Blood Urea Nitrogen 5L, Creatinine 0.4L, Estimat Glomerular Filtration Rate , Glucose Level 164H, Calcium Level 8.5, Total Bilirubin 0.5, Aspartate Amino Transf (AST/SGOT) 24, Alanine Aminotransferase (ALT/SGPT) 38, Alkaline Phosphatase 63, Pro-B-Type Natriuretic Peptide 294H, Total Protein 6.0L, Albumin 2.8L, Globulin 3.2, Albumin/Globulin Ratio 0.9L Height (Feet): 5 Height (Inches): 5.00 Weight (Pounds): 398 General Appearance: lethargic EENT: normal ENT inspection Neck: normal alignment Cardiovascular: normal peripheral pulses, normal rate, regular rhythm Respiratory/Chest: chest wall non-tender, decreased breath sounds Abdomen: normal bowel sounds, non tender, soft Extremities: normal inspection Edema: no edema noted Arm (L), no edema noted Arm (R), no edema noted Leg (L), no edema noted Leg (R), no edema noted Pedal (L), no edema noted Pedal (R), no edema noted Generalized Neurologic: responsive, motor weakness Skin: normal pigmentation, warm/dry Bill Lane DO Jul 22, 2019 08:35
[2019-07-22] MEDS: dilTIAZem HCl 30mg tab ORAL SCH ×2 (09:00→12:20)
[2019-07-22] MEDS: Budesonide HHN 0.25mg/2ml ud HHN SCH ×2 (09:33→21:36)
[2019-07-22] MEDS: Docusate 100mg cap ORAL SCH ×2 (09:53→17:07)
[2019-07-22] MEDS: Memantine 5 MG TAB ORAL SCH ×2 (09:54→17:07)
[2019-07-22] MEDS: Theophylline ER 100mg ORAL SCH (09:54)
[2019-07-22] MEDS: Aspirin Baby 81mg ORAL SCH (09:54)
[2019-07-22] MEDS: Sertraline 50mg tab ORAL SCH (09:55)
[2019-07-22] MEDS: Enoxaparin 40mg Inj SUBQ SCH (09:59)
--- NOTE | 2019-07-22 10:05 | Pulmonology Progress Note ---
Assessment/Plan Assessment/Plan ASSESSMENT acute hypoxemic RF, requiring VM and FM multifocal AT Intractable back pain due to lumbar DD with radiculopathy COPD probably PNA left lung collapse pleuritic CP MELVIN Hypertension History of smoking Morbid obesity Peripheral neuropathy Hypertension Hypothyroidism Peripheral edema Diabetes mellitus Schizophrenia PLAN OF CARE tele CXR 07/20 with complete opacification of L hemithorax at least partially due to atelectasis, CHF elevate left side of the chest CPT follow-up CXR -> opacified left hemithorax, unchanged US of the chest -> no pleural effusion continue with L side elevation and CPT with HHN, fup with CXR O2 HHN PRN continue budesonide inhaler was on trial of theophylline, no significant improvement, will dc due to MAT antitussive prn prior CXR Suspected left perihilar infiltrate; slightly worsening CHF SCX negatuve, influenza swab negative abx as per ID , Venous Duplex BLE troponin 2 negative, ECG 07/19 - multifocal AT as read by cardio transferred to tele , s/p Diltiazem x1 IV, then started on oral Diltiazem dc Theophylline as possible contributor to MAT DVT prophylaxis BiPAP at night + PRN BP management with Cardizem BS management with SSRI pain management as per pain specialist recommendation GI prophylaxis PT case discussed and evaluated by supervising physician Subjective Allergies: Coded Allergies: HALOPERIDOL (Verified Allergy, Unknown, 06/16/17) Subjective transferred to tele de to A fib with RVR per ECG 07/19, CXR with L lung collapse leukocytosis resolved, afebrile denies 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, + SOB, + dry cough Objective Last 24 Hour Vital Signs Date Time Temp Pulse Resp B/P (MAP) Pulse Ox O2 Delivery O2 Flow Rate FiO2 07/22/19 09:48 74 18 95 Simple Mask 8.0 50 71 20 94 07/22/19 08:54 Simple Mask 5.0 07/22/19 08:00 98.1 113 18 101/64 (76) 93 07/22/19 07:25 113 21 99 Simple Mask 8.0 40 108 20 95 07/22/19 07:10 93 Simple Mask 8.0 40 07/22/19 04:00 97.8 108 20 120/59 (79) 96 07/22/19 03:59 116 07/22/19 03:08 77 21 98 Simple Mask 8.0 40 74 16 95 07/22/19 00:00 97.9 109 20 130/60 (83) 96 07/21/19 23:42 111 07/21/19 23:05 83 18 98 Simple Mask 8.0 40 80 20 95 07/21/19 21:56 91 20 98 Simple Mask 5.0 40 90 18 96 07/21/19 21:00 Simple Mask 5.0 07/21/19 20:55 98 111/63 07/21/19 20:10 97 07/21/19 20:00 98.1 98 20 111/63 (79) 92 07/21/19 19:02 94 Simple Mask 8.0 40 07/21/19 18:59 98 20 98 Simple Mask 5.0 40 99 20 94 07/21/19 17:02 101 107/60 07/21/19 16:00 127 07/21/19 16:00 97.5 101 22 107/60 (76) 96 07/21/19 15:26 111 20 98 Simple Mask 8.0 40 102 20 98 07/21/19 12:24 127 119/82 07/21/19 12:00 98.1 127 22 119/82 (94) 95 07/21/19 12:00 137 07/21/19 11:36 135 07/21/19 11:34 121 112/78 07/21/19 10:34 90 20 96 Simple Mask 8.0 40 07/21/19 10:17 96 20 97 Simple Mask 5.0 40 90 20 94 Intake and Output 07/21/19 07/22/19 19:00 07:00 Intake Total 655 ml 300 ml Output Total 1300 ml Balance 655 ml -1000 ml Intake Oral 600 ml 300 ml IV Total 55 ml Output Urine Total 1300 ml # Voids 3 Objective General Appearance: no acute distress, awake, alert, oriented morbidly obese female HEENT: normocephalic, atraumatic, anicteric, mucous membranes moist, FM on Respiratory/Chest: no accessory muscle use, decreased BS on the left, crackles on the right Cardiovascular: normal rate, regular rhythm Abdomen: soft, non tender - obese Extremities: other - +1-2 BLE edema Neurologic/Psychiatric: abnormal gait, alert, oriented x 3, responsive Laboratory Tests 07/22/19 06:30: White Blood Count 9.2, Red Blood Count 4.25, Hemoglobin 12.7, Hematocrit 37.7, Mean Corpuscular Volume 89, Mean Corpuscular Hemoglobin 29.9, Mean Corpuscular Hemoglobin Concent 33.7, Red Cell Distribution Width 13.4, Platelet Count 253, Mean Platelet Volume 5.4L, Neutrophils (%) (Auto) 74.9, Lymphocytes (%) (Auto) 14.3L, Monocytes (%) (Auto) 9.5, Eosinophils (%) (Auto) 0.1, Basophils (%) (Auto ) 1.4, Sodium Level 139, Potassium Level 3.7, Chloride Level 97L, Carbon Dioxide Level 38H, Anion Gap 4L, Blood Urea Nitrogen 5L, Creatinine 0.4L, Estimat Glomerular Filtration Rate , Glucose Level 164H, Calcium Level 8.5, Total Bilirubin 0.5, Aspartate Amino Transf (AST/SGOT) 24, Alanine Aminotransferase (ALT/SGPT) 38, Alkaline Phosphatase 63, Pro-B-Type Natriuretic Peptide 294H, Total Protein 6.0L, Albumin 2.8L, Globulin 3.2, Albumin/Globulin Ratio 0.9L Current Medications Medications (Trade) Dose Ordered Sig/Marleni Route PRN Reason Start Time Stop Time Status Last Admin Dose Admin Acetaminophen (Tylenol) 650 mg Q6H PRN ORAL Mild Pain/Temp > 100.5 07/20/19 16:14 08/19/19 16:13 Acetaminophen/ Hydrocodone Bitart ([place] 5/325) 1 tab Q6H PRN ORAL Moderate Pain (Pain Scale 4-6) 07/20/19 16:15 07/27/19 16:14 07/20/19 21:44 Acetaminophen/ Hydrocodone Bitart ([place] 7.5/325) 1 tab Q4H PRN ORAL Severe Pain (Pain Scale 7-10) 07/20/19 16:15 07/27/19 16:14 07/22/19 05:08 Acetylcysteine (Mucomyst) 400 mg Q8HRT INH 07/20/19 23:00 08/15/19 07:29 07/22/19 07:20 Aspirin (ASA) 81 mg DAILY ORAL 07/21/19 09:00 08/15/19 08:59 07/21/19 08:37 Budesonide (Pulmicort) 0.5 mg Q12HRT HHN 07/20/19 22:00 3/3/20 09:59 07/22/19 09:33 Ceftriaxone Sodium 1 gm/ Dextrose 55 ml @ 110 mls/hr Q24H IVPB 07/21/19 14:00 07/25/19 13:59 07/21/19 13:47 Dextrose (Dextrose 50%) 25 ml Q30M PRN IV Hypoglycemia 07/20/19 16:30 08/15/19 07:29 Dextrose (Dextrose 50%) 50 ml Q30M PRN IV Hypoglycemia 07/20/19 16:30 08/15/19 07:29 Diltiazem HCl (Cardizem) 30 mg QID ORAL 07/21/19 13:00 08/20/19 12:59 07/21/19 20:55 Docusate Sodium (Colace) 100 mg TWICE A DAY ORAL 07/20/19 18:00 08/15/19 08:59 07/21/19 17:01 Enoxaparin Sodium (Lovenox) 40 mg DAILY SUBQ 07/21/19 09:00 08/18/19 08:59 07/21/19 08:40 Furosemide (Lasix) 20 mg EVERY 6 HOURS IV 07/21/19 12:00 08/20/19 11:59 07/22/19 05:11 Gabapentin (Neurontin) 300 mg THREE TIMES A DAY ORAL 07/20/19 18:00 08/15/19 08:59 07/21/19 17:01 Guaifenesin (Robitussin) 200 mg Q4H PRN ORAL FOR COUGH 07/20/19 16:15 08/19/19 16:14 Insulin Aspart (NovoLOG) BEFORE MEALS AND HS SUBQ 07/20/19 16:30 08/15/19 11:29 Levalbuterol HCl (Xopenex) 1.25 mg Q4HRT HHN 07/21/19 14:00 07/26/19 13:59 07/22/19 07:19 Lorazepam (Ativan) 0.5 mg Q6H PRN ORAL For Anxiety 07/20/19 16:16 07/27/19 16:15 Memantine (Namenda) 5 mg BID ORAL 07/20/19 18:00 08/15/19 08:59 07/21/19 17:01 Mirtazapine (Remeron) 15 mg BEDTIME ORAL 07/20/19 21:00 08/15/19 20:59 07/21/19 20:54 Morphine Sulfate (Morphine Sulfate) 2 mg Q4H PRN IVP Severe Breakthru Pain (>7) 07/20/19 16:16 07/27/19 16:15 Naloxone HCl (Narcan) 0.1 mg PRN PRN IV Sedation scale 3 or 4 07/20/19 16:16 07/27/19 16:15 Ondansetron HCl (Zofran) 4 mg Q4H PRN IVP Nausea & Vomiting 07/22/19 07:15 08/21/19 07:14 07/22/19 08:39 Pantoprazole (Protonix) 40 mg BEFORE BREAKFAST ORAL 07/21/19 06:30 08/16/19 06:29 07/22/19 05:35 Promethazine HCl/ Codeine (Phenergan with Codeine) 5 ml Q4H PRN ORAL For Cough 07/20/19 16:16 08/19/19 16:15 Sennosides (Senokot) 8.6 mg QHS ORAL 07/20/19 21:00 08/15/19 20:59 07/21/19 20:54 Sertraline HCl (Zoloft) 50 mg DAILY ORAL 07/21/19 09:00 08/15/19 08:59 07/21/19 08:38 Theophylline ([place]) 100 mg EVERY 12 HOURS ORAL 07/20/19 21:00 08/16/19 20:59 07/21/19 20:55 Zolpidem Tartrate (Ambien) 5 mg BEDTIME PRN ORAL Insomnia 07/20/19 16:17 07/27/19 16:16 07/21/19 22:[address] [employer] Jul 22, 2019 10:05
--- NOTE | 2019-07-22 10:13 | Infectious Diseases Prog Note ---
Assessment/Plan Assessment/Plan Assessment: Sepsis, Sp Early PNA CHF L lung collapse -07/21 US Chest:No pleural effusion -07/20 CXR: Complete opacification of left hemithorax at least partly due to atelectasis. Some volume loss noted.Congestive heart failure. -07/18 CXR: Suspected left perihilar infiltrate. Correlate clinically. Slightly worsening CH -07/15 CXR: Limited hypoventilatory exam. Prominence of the central bronchovascular structures may be in part due to low lung volumes. -influenza sc neg, sp cx normal resp frank Leukocytosis, SP Afebrile REcent Abdominal wall cellulitis (L side) and L mastitis; still ongoing CHF exacerbation Intractable Back pain MELVIN hx of aspiration PNA morbid obesity CAD/HI CHF HTN hypothryoidism hx of abdominal wall cellulitis MDD w/ psychotic features peripheral neuropathy s/p cholecystectomy s/p hysterectomy s/p appendectomy tobacco abuse HLD Dm2 COPD [place] resident VRE and MRSA colonized Plan: -Continue Ceftriaxone # 10/18 for PNA and cellulitis -07/19 SP IV Vancomycin #2 -f/u cx -Monitor CBC/CMP, temperatares -aspiration precautions -Pulm f/u Thank you for consulting [facility]. Will continue to follow along with you. Discussed with RN. Subjective Allergies: Coded Allergies: HALOPERIDOL (Verified Allergy, Unknown, 06/16/17) Subjective afebrile Objective Vital Signs Last 24 Hour Vital Signs Date Time Temp Pulse Resp B/P (MAP) Pulse Ox O2 Delivery O2 Flow Rate FiO2 07/22/19 09:48 74 18 95 Simple Mask 8.0 50 71 20 94 07/22/19 09:00 74 101/64 07/22/19 08:54 Simple Mask 5.0 07/22/19 08:00 98.1 113 18 101/64 (76) 93 07/22/19 07:25 113 21 99 Simple Mask 8.0 40 108 20 95 07/22/19 07:10 93 Simple Mask 8.0 40 07/22/19 04:00 97.8 108 20 120/59 (79) 96 07/22/19 03:59 116 07/22/19 03:08 77 21 98 Simple Mask 8.0 40 74 16 95 07/22/19 00:00 97.9 109 20 130/60 (83) 96 07/21/19 23:42 111 07/21/19 23:05 83 18 98 Simple Mask 8.0 40 80 20 95 07/21/19 21:56 91 20 98 Simple Mask 5.0 40 90 18 96 07/21/19 21:00 Simple Mask 5.0 07/21/19 20:55 98 111/63 07/21/19 20:10 97 07/21/19 20:00 98.1 98 20 111/63 (79) 92 07/21/19 19:02 94 Simple Mask 8.0 40 07/21/19 18:59 98 20 98 Simple Mask 5.0 40 99 20 94 07/21/19 17:02 101 107/60 07/21/19 16:00 127 07/21/19 16:00 97.5 101 22 107/60 (76) 96 07/21/19 15:26 111 20 98 Simple Mask 8.0 40 102 20 98 07/21/19 12:24 127 119/82 07/21/19 12:00 98.1 127 22 119/82 (94) 95 07/21/19 12:00 137 07/21/19 11:36 135 07/21/19 11:34 121 112/78 07/21/19 10:34 90 20 96 Simple Mask 8.0 40 07/21/19 10:17 96 20 97 Simple Mask 5.0 40 90 20 94 Height (Feet): 5 Height (Inches): 5.00 Weight (Pounds): 398 Respiratory/Chest: lungs clear Cardiovascular: regular rhythm Abdomen: no organomegaly Laboratory Tests Test 07/22/19 06:30 White Blood Count 9.2 K/UL (4.8-10.8) Red Blood Count 4.25 M/UL (4.20-5.40) Hemoglobin 12.7 G/DL (12.0-16.0) Hematocrit 37.7 % (37.0-47.0) Mean Corpuscular Volume 89 FL (80-99) Mean Corpuscular Hemoglobin 29.9 PG (27.0-31.0) Mean Corpuscular Hemoglobin Concent 33.7 G/DL (32.0-36.0) Red Cell Distribution Width 13.4 % (11.6-14.8) Platelet Count 253 K/UL (150-450) Mean Platelet Volume 5.4 FL (6.5-10.1) L Neutrophils (%) (Auto) 74.9 % (45.0-75.0) Lymphocytes (%) (Auto) 14.3 % (20.0-45.0) L Monocytes (%) (Auto) 9.5 % (1.0-10.0) Eosinophils (%) (Auto) 0.1 % (0.0-3.0) Basophils (%) (Auto) 1.4 % (0.0-2.0) Sodium Level 139 MMOL/L (136-145) Potassium Level 3.7 MMOL/L (3.5-5.1) Chloride Level 97 MMOL/L (98-107) L Carbon Dioxide Level 38 MMOL/L (21-32) H Anion Gap 4 mmol/L (5-15) L Blood Urea Nitrogen 5 mg/dL (7-18) L Creatinine 0.4 MG/DL (0.55-1.30) L Estimat Glomerular Filtration Rate mL/min (>60) Glucose Level 164 MG/DL (74-106) H Calcium Level 8.5 MG/DL (8.5-10.1) Total Bilirubin 0.5 MG/DL (0.2-1.0) Aspartate Amino Transf (AST/SGOT) 24 U/L (15-37) Alanine Aminotransferase (ALT/SGPT) 38 U/L (12-78) Alkaline Phosphatase 63 U/L (46-116) Pro-B-Type Natriuretic Peptide 294 pg/mL (0-125) H Total Protein 6.0 G/DL (6.4-8.2) L Albumin 2.8 G/DL (3.4-5.0) L Globulin 3.2 g/dL Albumin/Globulin Ratio 0.9 (1.0-2.7) L Current Medications Medications (Trade) Dose Ordered Sig/Marleni Route PRN Reason Start Time Stop Time Status Last Admin Dose Admin Acetaminophen (Tylenol) 650 mg Q6H PRN ORAL Mild Pain/Temp > 100.5 07/20/19 16:14 08/19/19 16:13 Acetaminophen/ Hydrocodone Bitart ([place] 5/325) 1 tab Q6H PRN ORAL Moderate Pain (Pain Scale 4-6) 07/20/19 16:15 07/27/19 16:14 07/20/19 21:44 Acetaminophen/ Hydrocodone Bitart ([place] 7.5/325) 1 tab Q4H PRN ORAL Severe Pain (Pain Scale 7-10) 07/20/19 16:15 07/27/19 16:14 07/22/19 09:56 Acetylcysteine (Mucomyst) 400 mg Q8HRT INH 07/20/19 23:00 08/15/19 07:29 07/22/19 07:20 Aspirin (ASA) 81 mg DAILY ORAL 07/21/19 09:00 08/15/19 08:59 07/22/19 09:54 Budesonide (Pulmicort) 0.5 mg Q12HRT HHN 07/20/19 22:00 08/15/19 09:59 07/22/19 09:33 Ceftriaxone Sodium 1 gm/ Dextrose 55 ml @ 110 mls/hr Q24H IVPB 07/21/19 14:00 07/25/19 13:59 07/21/19 13:47 Dextrose (Dextrose 50%) 25 ml Q30M PRN IV Hypoglycemia 07/20/19 16:30 08/15/19 07:29 Dextrose (Dextrose 50%) 50 ml Q30M PRN IV Hypoglycemia 07/20/19 16:30 08/15/19 07:29 Diltiazem HCl (Cardizem) 30 mg QID ORAL 07/21/19 13:00 08/20/19 12:59 07/21/19 20:55 Docusate Sodium (Colace) 100 mg TWICE A DAY ORAL 07/20/19 18:00 08/15/19 08:59 07/22/19 09:53 Enoxaparin Sodium (Lovenox) 40 mg DAILY SUBQ 07/21/19 09:00 08/18/19 08:59 07/22/19 09:59 Furosemide (Lasix) 20 mg EVERY 6 HOURS IV 07/21/19 12:00 08/20/19 11:59 07/22/19 05:11 Gabapentin (Neurontin) 300 mg THREE TIMES A DAY ORAL 07/20/19 18:00 08/15/19 08:59 07/22/19 09:55 Guaifenesin (Robitussin) 200 mg Q4H PRN ORAL FOR COUGH 07/20/19 16:15 08/19/19 16:14 Insulin Aspart (NovoLOG) BEFORE MEALS AND HS SUBQ 07/20/19 16:30 08/15/19 11:29 Levalbuterol HCl (Xopenex) 1.25 mg Q4HRT HHN 07/21/19 14:00 07/26/19 13:59 07/22/19 07:19 Lorazepam (Ativan) 0.5 mg Q6H PRN ORAL For Anxiety 07/20/19 16:16 07/27/19 16:15 Memantine (Namenda) 5 mg BID ORAL 07/20/19 18:00 08/15/19 08:59 07/22/19 09:54 Mirtazapine (Remeron) 15 mg BEDTIME ORAL 07/20/19 21:00 08/15/19 20:59 07/21/19 20:54 Morphine Sulfate (Morphine Sulfate) 2 mg Q4H PRN IVP Severe Breakthru Pain (>7) 07/20/19 16:16 07/27/19 16:15 Naloxone HCl (Narcan) 0.1 mg PRN PRN IV Sedation scale 3 or 4 07/20/19 16:16 07/27/19 16:15 Ondansetron HCl (Zofran) 4 mg Q4H PRN IVP Nausea & Vomiting 07/22/19 07:15 08/21/19 07:14 07/22/19 08:39 Pantoprazole (Protonix) 40 mg BEFORE BREAKFAST ORAL 07/21/19 06:30 08/16/19 06:29 07/22/19 05:35 Promethazine HCl/ Codeine (Phenergan with Codeine) 5 ml Q4H PRN ORAL For Cough 07/20/19 16:16 08/19/19 16:15 Sennosides (Senokot) 8.6 mg QHS ORAL 07/20/19 21:00 08/15/19 20:59 07/21/19 20:54 Sertraline HCl (Zoloft) 50 mg DAILY ORAL 07/21/19 09:00 08/15/19 08:59 07/22/19 09:55 Zolpidem Tartrate (Ambien) 5 mg BEDTIME PRN ORAL Insomnia 07/20/19 16:17 07/27/19 16:16 07/21/19 22:10 Iván Bernstein MD Jul 22, 2019 10:13
[2019-07-22] MEDS: LORazepam 0.5mg tab ORAL PRN (11:07)
--- NOTE | 2019-07-22 11:16 | Diagnostic Imaging Report ---
EXAM: XR Chest, 1 View CLINICAL HISTORY: DYSPNEA TECHNIQUE: Frontal view of the chest. COMPARISON: Chest x-ray 07/21/19 751 FINDINGS: Lungs: Continued near complete opacification of the left hemithorax, minimally improved aeration in the left lung apex. Mild interstitial prominence with increased vague opacity peripheral right lower lung. Pleural space: See above. No pneumothorax. Heart: Cardiomegaly. Mediastinum: Unremarkable. Bones/joints: Unremarkable. IMPRESSION: 1. Continued near complete opacification of the left hemithorax, minimally improved aeration in the left lung apex. 2. Mild interstitial prominence with increased vague opacity peripheral right lower lung.
--- NOTE | 2019-07-22 11:19 | NUR ---
RADIOLOGY DEPT., CHEST X-RAY DONE.-P.DYE
--- NOTE | 2019-07-22 11:39 | NUR ---
NURSE NOTES: Notified Dr. Paulino pt had episode of A-fib with RVR and HR 158, currently in A-fib 136
[2019-07-22 12:00] VITALS: BP 132/73
--- NOTE | 2019-07-22 14:23 | Cardiology Progress Note ---
Assessment/Plan Problem List: (1) Atrial paroxysmal tachycardia (2) CAD (coronary artery disease) (3) Morbid obesity (4) COPD (chronic obstructive pulmonary disease) (5) HTN (hypertension) (6) Myelopathy Status: not improved, unchanged Status Narrative Atrial tachyarrhythmia - appears w/ runs of atrial tach, w/ uncontrolled ventricular rates. R LE paresis - ? of myelopathy, epidural abscess. Morbid obesity hx of HTN COPD Assessment/Plan Will increase diltiazem and give 1 dose iv digoxin. Ventricular rates are poorly controlled in AT currently Imaging is recommended for evaluation of ? spine abscess, but cannot be done due to pt size. Rec transfer to another facility for evaluation w/ CT or MRI Continue iv abx Continue o2, bronchodilators for copd. Lasix for ? diastolic dysfunction (ECHO technically difficult study, but reported nl lv systolic function) d/w RN Subjective ROS Limited/Unobtainable: No Subjective Cardiology for Dr. Paulino Pt c/o R leg numbness and weakness. also, c/o dyspnea. Events noted. Objective Last 24 Hour Vital Signs Date Time Temp Pulse Resp B/P (MAP) Pulse Ox O2 Delivery O2 Flow Rate FiO2 07/22/19 12:20 128 132/73 07/22/19 12:00 98.2 128 20 132/73 (92) 93 07/22/19 11:35 121 07/22/19 10:56 121 23 96 Simple Mask 8.0 50 111 24 93 07/22/19 10:26 98.1 07/22/19 09:48 74 18 95 Simple Mask 8.0 50 71 20 94 07/22/19 09:00 74 101/64 07/22/19 08:55 158 07/22/19 08:54 Simple Mask 5.0 07/22/19 08:00 98.1 113 18 101/64 (76) 93 07/22/19 07:58 104 07/22/19 07:25 113 21 99 Simple Mask 8.0 40 108 20 95 07/22/19 07:10 93 Simple Mask 8.0 40 07/22/19 04:00 97.8 108 20 120/59 (79) 96 07/22/19 03:59 116 07/22/19 03:08 77 21 98 Simple Mask 8.0 40 74 16 95 07/22/19 00:00 97.9 109 20 130/60 (83) 96 07/21/19 23:42 111 07/21/19 23:05 83 18 98 Simple Mask 8.0 40 80 20 95 07/21/19 21:56 91 20 98 Simple Mask 5.0 40 90 18 96 07/21/19 21:00 Simple Mask 5.0 07/21/19 20:55 98 111/63 07/21/19 20:10 97 07/21/19 20:00 98.1 98 20 111/63 (79) 92 07/21/19 19:02 94 Simple Mask 8.0 40 07/21/19 18:59 98 20 98 Simple Mask 5.0 40 99 20 94 07/21/19 17:02 101 107/60 07/21/19 16:00 127 07/21/19 16:00 97.5 101 22 107/60 (76) 96 07/21/19 15:26 111 20 98 Simple Mask 8.0 40 102 20 98 General Appearance: obese - tachypneic, on fm o2, other EENT: PERRL/EOMI Neck: no JVD Rhythm: Afib Cardiovascular: irregularly irregular Respiratory/Chest: other - shallow respirations, few expir wheezes Abdomen: non tender, soft, other - obese Extremities: no swelling Neurologic: other - 0/5 motor R LE Intake and Output 07/21/19 07/22/19 19:00 07:00 Intake Total 655 ml 300 ml Output Total 1300 ml Balance 655 ml -1000 ml Intake Oral 600 ml 300 ml IV Total 55 ml Output Urine Total 1300 ml # Voids 3 Laboratory Tests Test 07/22/19 06:30 White Blood Count 9.2 K/UL (4.8-10.8) Red Blood Count 4.25 M/UL (4.20-5.40) Hemoglobin 12.7 G/DL (12.0-16.0) Hematocrit 37.7 % (37.0-47.0) Mean Corpuscular Volume 89 FL (80-99) Mean Corpuscular Hemoglobin 29.9 PG (27.0-31.0) Mean Corpuscular Hemoglobin Concent 33.7 G/DL (32.0-36.0) Red Cell Distribution Width 13.4 % (11.6-14.8) Platelet Count 253 K/UL (150-450) Mean Platelet Volume 5.4 FL (6.5-10.1) L Neutrophils (%) (Auto) 74.9 % (45.0-75.0) Lymphocytes (%) (Auto) 14.3 % (20.0-45.0) L Monocytes (%) (Auto) 9.5 % (1.0-10.0) Eosinophils (%) (Auto) 0.1 % (0.0-3.0) Basophils (%) (Auto) 1.4 % (0.0-2.0) Sodium Level 139 MMOL/L (136-145) Potassium Level 3.7 MMOL/L (3.5-5.1) Chloride Level 97 MMOL/L (98-107) L Carbon Dioxide Level 38 MMOL/L (21-32) H Anion Gap 4 mmol/L (5-15) L Blood Urea Nitrogen 5 mg/dL (7-18) L Creatinine 0.4 MG/DL (0.55-1.30) L Estimat Glomerular Filtration Rate mL/min (>60) Glucose Level 164 MG/DL (74-106) H Calcium Level 8.5 MG/DL (8.5-10.1) Total Bilirubin 0.5 MG/DL (0.2-1.0) Aspartate Amino Transf (AST/SGOT) 24 U/L (15-37) Alanine Aminotransferase (ALT/SGPT) 38 U/L (12-78) Alkaline Phosphatase 63 U/L (46-116) Pro-B-Type Natriuretic Peptide 294 pg/mL (0-125) H Total Protein 6.0 G/DL (6.4-8.2) L Albumin 2.8 G/DL (3.4-5.0) L Globulin 3.2 g/dL Albumin/Globulin Ratio 0.9 (1.0-2.7) L Madiha Stinson MD Jul 22, 2019 14:23
[2019-07-22] MEDS: cefTRIAXone 1 GM in D5W 55 ML IVPB SCH (14:26)
[2019-07-22] MEDS ORDERED: Digoxin 0.5mg/2ml Inj IVP SCH (15:00)
[2019-07-22 15:54] VITALS: BP 121/69
[2019-07-22] MEDS ORDERED: Fleet's Enema 133ml RECTAL PRN (16:00)
[2019-07-22] MEDS: Miralax 17gm pkt ORAL PRN (16:20)
[2019-07-22] MEDS: dilTIAZem HCl 60mg tab ORAL SCH ×2 (17:07→21:36)
--- NOTE | 2019-07-22 19:32 | NUR ---
HAND-OFF: Report given to JAMEE Parra. Pt waiting for RT treatment, RT has been contacted.
--- NOTE | 2019-07-22 19:50 | NUR ---
NURSE NOTES: Received pt from JAMEE Moon. Pt awake, alert, and talkative. Bed in lowest position. Call light within reach. Will continue to monitor.
[2019-07-22 20:00] VITALS: BP 131/76
--- NOTE | 2019-07-22 21:24 | NUR ---
NURSE NOTES: Pitkin 7.5 was given and didn't save in emar. Reassessment pain level was 9/10.
[2019-07-22] MEDS: Sennosides 8.6mg tab ORAL SCH (21:36)
--- NOTE | 2019-07-22 22:00 | Progress Note ---
DATE: 07/22/2019 NOTE: "POOR AUDIO QUALITY" SUBJECTIVE: This is a 73-year-old female patient with cough and back pain, but this patient continues to have a lot of mood lability, easily agitated, irritable, confused, and disorganized. She has no logical plan for her own self-care. She has got feelings of helplessness, hopelessness, low energy, poor appetite, and loss of interest in activity. MENTAL STATUS EXAMINATION: A 73-year-old female. Appearance is disheveled. Attitude, irritable and agitated. Affect, guarded and restricted. Intellect poor. Mood, depressed and anxious. Motor activity, psychomotor agitation. Attention span is poor. Orientation x2. Speech is pressured. Thought process, disorganized and illogical. Thought content, auditory hallucinations and paranoid delusions. Insight and judgment is poor. DIAGNOSIS: PLAN: Treat her with Remeron 15 mg nightly, Zoloft 50 mg daily, Namenda 5 mg twice a day, Ativan 0.5 mg q.6 hours p.r.n. anxiety and agitation, and Neurontin at a dose of 300 mg 3 times a day. Twenty minutes of cognitive behavioral therapy is provided to help her identify automatic negative thoughts and help her to convert negative thoughts to more positive thoughts to reduce depression, anxiety, and mood lability. Chart was reviewed. Discussed with staff. Seen and assessed at bedside. Filipe Yen M.D. DR: Sayda JOB#: [id number] CC:
--- NOTE | 2019-07-22 22:00 | NUR ---
NURSE NOTES: Called and left a message with Dr. Lane regarding pts request for a linder. He called back approving the request. Will input order and will continue to monitor.
[2019-07-23] VITALS: BP 96/59
[2019-07-23] MEDS: Levalbuterol Inh UD 1.25mg/0.5ml HHN SCH ×6 (03:17→23:29)
[2019-07-23] MEDS: HYDROcodone/Acetamin 7.5/325 tab ORAL PRN ×5 (03:57→22:48)
[2019-07-23 04:00] VITALS: BP 126/84
[2019-07-23] MEDS: NovoLOG Insulin Flexpen SUBQ SCH ×4 (06:15→21:00)
--- NOTE | 2019-07-23 07:26 | NUR ---
HAND-OFF: Report given to JAMEE Moon. Pt stable.
--- NOTE | 2019-07-23 07:47 | NUR ---
NURSE NOTES: Received report from JAMEE Parra. PT in bed, awake, receiving breathing treatment from RT, pt states she "has an upset stomach" RN will give Zofran when available and called for tramaine cobos from kitchen, pt is in bariatric bed which in in lowest position, and locked with call light within reach, no c/o pain at this time, discussed plan of care with pt.
[2019-07-23 08:00] VITALS: BP 153/74
[2019-07-23] MEDS: Docusate 100mg cap ORAL SCH ×2 (08:11→17:31)
[2019-07-23] MEDS: dilTIAZem HCl 60mg tab ORAL SCH ×4 (08:12→22:45)
[2019-07-23] MEDS: Sertraline 50mg tab ORAL SCH (08:12)
[2019-07-23] MEDS: Memantine 5 MG TAB ORAL SCH ×2 (08:12→17:31)
[2019-07-23] MEDS: Aspirin Baby 81mg ORAL SCH (08:12)
[2019-07-23] MEDS: Enoxaparin 40mg Inj SUBQ SCH (08:14)
[2019-07-23 08:34] LABS: BASOPHILS % (AUTO) 1.5 % (0.0-2.0); EOSINOPHILS % (AUTO) 2.3 % (0.0-3.0); HEMOGLOBIN 12.5 G/DL (12.0-16.0); LYMPHOCYTES % (AUTO) 15.1 % (20.0-45.0); MEAN CORPUSCULAR VOLUME 89 FL (80-99); MONOCYTES % (AUTO) 9.1 % (1.0-10.0); PLATELET COUNT 273 K/UL (150-450); RED BLOOD COUNT 4.15 M/UL (4.20-5.40); RED CELL DISTRIBUTION WIDTH 13.2 % (11.6-14.8); WHITE BLOOD COUNT 8.9 K/UL (4.8-10.8)
[2019-07-23] MEDS: Budesonide HHN 0.25mg/2ml ud HHN SCH ×2 (08:43→21:33)
--- NOTE | 2019-07-23 08:43 | Diagnostic Imaging Report ---
EXAM: XR Chest, 1 View CLINICAL HISTORY: SOB TECHNIQUE: Frontal view of the chest. COMPARISON: 1 day prior FINDINGS: Lungs: Since prior study there is been improved aeration of the left lung with mild to moderate diffuse alveolar infiltrate throughout the left upper and left lower lobe. Pleural space: There is an improving small left pleural effusion. No pneumothorax identified. There is unchanged cardiomegaly and perihilar pulmonary edema. Heart: See above. Mediastinum: Unremarkable. Bones/joints: Unremarkable. IMPRESSION: Improved aeration left lung with persistent moderate diffuse alveolar infiltrate suspicious for pneumonia and/or atelectasis. There is unchanged mild superimposed pulmonary edema with improving mild left pleural effusion
[2019-07-23 08:50] LABS: ANION GAP 2 mmol/L (5-15); BLOOD UREA NITROGEN 5 mg/dL (7-18); CALCIUM 8.8 MG/DL (8.5-10.1); CHLORIDE 96 MMOL/L (98-107); CREATININE 0.6 MG/DL (0.55-1.30); POTASSIUM 3.2 MMOL/L (3.5-5.1); SODIUM 141 MMOL/L (136-145)
[2019-07-23 08:56] LABS: CARBON DIOXIDE 44 MMOL/L (21-32)
--- NOTE | 2019-07-23 08:56 | General Progress Note ---
Assessment/Plan Problem List: (1) HTN (hypertension) ICD Codes: I10 - Essential (primary) hypertension SNOMED: 05349412 (2) COPD (chronic obstructive pulmonary disease) ICD Codes: J44.9 - Chronic obstructive pulmonary disease, unspecified SNOMED: 71274118 (3) Hypothyroidism ICD Codes: E03.9 - Hypothyroidism, unspecified SNOMED: 19017442 (4) Peripheral edema ICD Codes: R60.9 - Edema, unspecified SNOMED: 094869015 Status: unchanged Assessment/Plan: pt dit o2 pulm tx bp bs control cbc bmp in am dc plan Subjective Constitutional: Reports: weakness Allergies: Coded Allergies: HALOPERIDOL (Verified Allergy, Unknown, 06/16/17) All Systems: reviewed and negative except above Subjective pulm tx c/o lbp Objective Last 24 Hour Vital Signs Date Time Temp Pulse Resp B/P (MAP) Pulse Ox O2 Delivery O2 Flow Rate FiO2 07/23/19 08:41 63 20 97 Simple Mask 8.0 40 64 20 95 07/23/19 08:12 112 126/84 07/23/19 07:55 Simple Mask 5.0 07/23/19 07:32 53 20 97 Simple Mask 8.0 40 57 20 94 07/23/19 07:31 94 Simple Mask 8.0 40 07/23/19 04:00 129 07/23/19 04:00 97.9 129 22 126/84 (98) 94 07/23/19 00:00 98.1 91 23 96/59 (71) 94 07/23/19 00:00 117 07/22/19 23:17 53 22 99 Simple Mask 8.0 50 50 22 97 07/22/19 23:14 Simple Mask 5.0 07/22/19 21:37 52 18 98 Simple Mask 8.0 50 50 20 96 07/22/19 21:36 70 131/76 07/22/19 21:00 Simple Mask 5.0 07/22/19 20:00 97.6 70 20 131/76 (94) 97 07/22/19 20:00 120 07/22/19 19:41 97 Simple Mask 8.0 40 07/22/19 17:37 98.1 07/22/19 17:07 120 121/69 07/22/19 16:26 120 07/22/19 15:54 98.1 96 20 121/69 (86) 93 2/8/20 15:00 123 07/22/19 14:23 123 22 96 Simple Mask 8.0 50 118 24 94 07/22/19 12:20 128 132/73 07/22/19 12:00 98.2 128 20 132/73 (92) 93 07/22/19 11:35 121 07/22/19 10:56 121 23 96 Simple Mask 8.0 50 111 24 93 07/22/19 09:48 74 18 95 Simple Mask 8.0 50 71 20 94 07/22/19 09:00 74 101/64 Intake and Output 07/22/19 07/23/19 19:00 07:00 Output Total 1500 ml 800 ml Balance -1500 ml -800 ml Output Urine Total 1500 ml 800 ml Laboratory Tests 07/23/19 07:06: White Blood Count 8.9, Red Blood Count 4.15L, Hemoglobin 12.5, Hematocrit 37.0, Mean Corpuscular Volume 89, Mean Corpuscular Hemoglobin 30.0, Mean Corpuscular Hemoglobin Concent 33.7, Red Cell Distribution Width 13.2, Platelet Count 273, Mean Platelet Volume 5.4L, Neutrophils (%) (Auto) 72.0, Lymphocytes (%) (Auto) 15.1L, Monocytes (%) (Auto) 9.1, Eosinophils (%) (Auto) 2.3, Basophils (%) (Auto ) 1.5, Sodium Level [Pending], Potassium Level [Pending], Chloride Level [ Pending], Carbon Dioxide Level [Pending], Blood Urea Nitrogen [Pending], Creatinine [Pending], Estimat Glomerular Filtration Rate [Pending], Glucose Level [Pending], Calcium Level [Pending] Height (Feet): 5 Height (Inches): 5.00 Weight (Pounds): 398 General Appearance: lethargic EENT: normal ENT inspection Neck: normal alignment Cardiovascular: normal peripheral pulses, normal rate, regular rhythm Respiratory/Chest: chest wall non-tender, decreased breath sounds Abdomen: normal bowel sounds, non tender, soft Extremities: normal inspection Edema: no edema noted Arm (L), no edema noted Arm (R), no edema noted Leg (L), no edema noted Leg (R), no edema noted Pedal (L), no edema noted Pedal (R), no edema noted Generalized Neurologic: responsive, motor weakness Skin: normal pigmentation, warm/dry Bill Lane DO Jul 23, 2019 08:56
--- NOTE | 2019-07-23 10:04 | NUR ---
NURSE NOTES: Notified Sharon Gimenez NP Serum Carbon Dioxide is 44, and made aware of all ABG results, and K is 3.2
--- NOTE | 2019-07-23 10:11 | Pulmonology Progress Note ---
Assessment/Plan Assessment/Plan ASSESSMENT acute hypoxemic hypercapnic RF, requiring VM and FM likely acute on chronic CO2 retainer multifocal AT Intractable back pain due to lumbar DD with radiculopathy COPD probably PNA left lung collapse pleuritic CP MELVIN Hypertension History of smoking Morbid obesity Peripheral neuropathy Hypertension Hypothyroidism Peripheral edema Diabetes mellitus Schizophrenia PLAN OF CARE tele CXR 07/20 with complete opacification of L hemithorax at least partially due to atelectasis, CHF elevate left side of the chest CPT follow-up CXR -> opacified left hemithorax, unchanged US of the chest -> no pleural effusion CXR this am 07/23 better -> Improved aeration left lung with persistent moderate diffuse alveolar infiltrate suspicious for pneumonia and/or atelectasis. continue elevation L chest and CPT with HHN O2 and titrate to keep sat above 90% HHN PRN ABG noted start on trial of Diamox fup with ABG in am continue budesonide inhaler was on trial of theophylline, no significant improvement, was dc due to MAT antitussive prn prior CXR with suspected left perihilar infiltrate; slightly worsening CHF SCX negative, influenza swab negative abx as per ID , Venous Duplex BLE troponin 2/5 negative, ECG 2/5 - multifocal AT as read by cardio transferred to tele , s/p Diltiazem x1 IV, then started on oral Diltiazem Theophylline was dc as possible contributor to MAT, tachycardia resolving DVT prophylaxis BiPAP at night + PRN K replaced, check K and Mg in am BP management with Cardizem BS management with SSRI pain management as per pain specialist recommendation GI prophylaxis PT when dc to SNF will need HHN q 4 case discussed and evaluated by supervising physician Subjective Allergies: Coded Allergies: HALOPERIDOL (Verified Allergy, Unknown, 06/16/17) Subjective CXR better this am with improved aeration remains on FM leukocytosis resolved, afebrile denies [employer]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, + SOB, ABG with pCO2 >70 K-3.2 Objective Last 24 Hour Vital Signs Date Time Temp Pulse Resp B/P (MAP) Pulse Ox O2 Delivery O2 Flow Rate FiO2 07/23/19 08:41 63 20 97 Simple Mask 8.0 40 64 20 95 07/23/19 08:12 112 126/84 07/23/19 08:00 97.9 101 17 153/74 (100) 93 07/23/19 07:55 Simple Mask 5.0 2/9/20 07:32 53 20 97 Simple Mask 8.0 40 57 20 94 07/23/19 07:31 94 Simple Mask 8.0 40 07/23/19 04:00 129 07/23/19 04:00 97.9 129 22 126/84 (98) 94 07/23/19 00:00 98.1 91 23 96/59 (71) 94 07/23/19 00:00 117 07/22/19 23:17 53 22 99 Simple Mask 8.0 50 50 22 97 07/22/19 23:14 Simple Mask 5.0 07/22/19 21:37 52 18 98 Simple Mask 8.0 50 50 20 96 07/22/19 21:36 70 131/76 07/22/19 21:00 Simple Mask 5.0 07/22/19 20:00 97.6 70 20 131/76 (94) 97 07/22/19 20:00 120 07/22/19 19:41 97 Simple Mask 8.0 40 07/22/19 17:37 98.1 07/22/19 17:07 120 121/69 07/22/19 16:26 120 07/22/19 15:54 98.1 96 20 121/69 (86) 93 07/22/19 15:00 123 07/22/19 14:23 123 22 96 Simple Mask 8.0 50 118 24 94 07/22/19 12:20 128 132/73 07/22/19 12:00 98.2 128 20 132/73 (92) 93 07/22/19 11:35 121 07/22/19 10:56 121 23 96 Simple Mask 8.0 50 111 24 93 Intake and Output 07/22/19 07/23/19 19:00 07:00 Output Total 1500 ml 800 ml Balance -1500 ml -800 ml Output Urine Total 1500 ml 800 ml Objective General Appearance: no acute distress, awake, alert, oriented morbidly obese female HEENT: normocephalic, atraumatic, anicteric, mucous membranes moist, FM on Respiratory/Chest: no accessory muscle use, decreased BS on the left, crackles on the right Cardiovascular: normal rate, regular rhythm Abdomen: soft, non tender - obese Extremities: +1-2 BLE edema Neurologic/Psychiatric: abnormal gait, alert, oriented x 3, responsive Laboratory Tests 07/23/19 04:00: Arterial Blood pH 7.393, Arterial Blood Partial Pressure CO2 73.3*H, Arterial Blood Partial Pressure O2 90.1, Arterial Blood HCO3 43.7*H, Arterial Blood Oxygen Saturation 97.0, Arterial Blood Base Excess 15.3*H, Nathan Test Positive 07/23/19 07:06: White Blood Count 8.9, Red Blood Count 4.15L, Hemoglobin 12.5, Hematocrit 37.0, Mean Corpuscular Volume 89, Mean Corpuscular Hemoglobin 30.0, Mean Corpuscular Hemoglobin Concent 33.7, Red Cell Distribution Width 13.2, Platelet Count 273, Mean Platelet Volume 5.4L, Neutrophils (%) (Auto) 72.0, Lymphocytes (%) (Auto) 15.1L, Monocytes (%) (Auto) 9.1, Eosinophils (%) (Auto) 2.3, Basophils (%) (Auto ) 1.5, Sodium Level 141, Potassium Level 3.2L, Chloride Level 96L, Carbon Dioxide Level 44*H, Anion Gap 2L, Blood Urea Nitrogen 5L, Creatinine 0.6, Estimat Glomerular Filtration Rate , Glucose Level 146H, Calcium Level 8.8 Current Medications Medications (Trade) Dose Ordered Sig/Marleni Route PRN Reason Start Time Stop Time Status Last Admin Dose Admin Acetaminophen (Tylenol) 650 mg Q6H PRN ORAL Mild Pain/Temp > 100.5 07/20/19 16:14 08/19/19 16:13 Acetaminophen/ Hydrocodone Bitart (Armona 5/325) 1 tab Q6H PRN ORAL Moderate Pain (Pain Scale 4-6) 07/20/19 16:15 07/27/19 16:14 07/20/19 21:44 Acetaminophen/ Hydrocodone Bitart (Armona 7.5/325) 1 tab Q4H PRN ORAL Severe Pain (Pain Scale 7-10) 07/20/19 16:15 07/27/19 16:14 07/23/19 08:12 Acetylcysteine (Mucomyst) 400 mg Q8HRT INH 07/20/19 23:00 08/15/19 07:29 07/23/19 07:00 Aspirin (ASA) 81 mg DAILY ORAL 07/21/19 09:00 08/15/19 08:59 07/23/19 08:12 Budesonide (Pulmicort) 0.5 mg Q12HRT HHN 07/20/19 22:00 08/15/19 09:59 07/23/19 08:43 Ceftriaxone Sodium 1 gm/ Dextrose 55 ml @ 110 mls/hr Q24H IVPB 07/21/19 14:00 07/25/19 13:59 07/22/19 14:26 Dextrose (Dextrose 50%) 25 ml Q30M PRN IV Hypoglycemia 07/20/19 16:30 08/15/19 07:29 Dextrose (Dextrose 50%) 50 ml Q30M PRN IV Hypoglycemia 07/20/19 16:30 08/15/19 07:29 Diltiazem HCl (Cardizem) 60 mg QID ORAL 07/22/19 18:00 08/20/19 12:59 07/23/19 08:12 Docusate Sodium (Colace) 100 mg TWICE A DAY ORAL 07/20/19 18:00 08/15/19 08:59 07/23/19 08:11 Enoxaparin Sodium (Lovenox) 40 mg DAILY SUBQ 07/21/19 09:00 08/18/19 08:59 07/23/19 08:14 Furosemide (Lasix) 20 mg EVERY 6 HOURS IV 07/21/19 12:00 08/20/19 11:59 07/23/19 06:13 Gabapentin (Neurontin) 300 mg THREE TIMES A DAY ORAL 07/20/19 18:00 08/15/19 08:59 07/23/19 08:12 Guaifenesin (Robitussin) 200 mg Q4H PRN ORAL FOR COUGH 07/20/19 16:15 08/19/19 16:14 Insulin Aspart (NovoLOG) BEFORE MEALS AND HS SUBQ 07/20/19 16:30 08/15/19 11:29 07/23/19 06:15 Levalbuterol HCl (Xopenex) 1.25 mg Q4HRT HHN 07/21/19 14:00 07/26/19 13:59 07/23/19 07:37 Lorazepam (Ativan) 0.5 mg Q6H PRN ORAL For Anxiety 07/20/19 16:16 07/27/19 16:15 07/22/19 11:07 Memantine (Namenda) 5 mg BID ORAL 07/20/19 18:00 08/15/19 08:59 07/23/19 08:12 Mirtazapine (Remeron) 15 mg BEDTIME ORAL 07/20/19 21:00 08/15/19 20:59 07/22/19 21:36 Morphine Sulfate (Morphine Sulfate) 2 mg Q4H PRN IVP Severe Breakthru Pain (>7) 07/20/19 16:16 07/27/19 16:15 Naloxone HCl (Narcan) 0.1 mg PRN PRN IV Sedation scale 3 or 4 07/20/19 16:16 07/27/19 16:15 Ondansetron HCl (Zofran) 4 mg Q4H PRN IVP Nausea & Vomiting 07/22/19 07:15 08/21/19 07:14 07/23/19 08:12 Pantoprazole (Protonix) 40 mg BEFORE BREAKFAST ORAL 07/21/19 06:30 08/16/19 06:29 07/23/19 06:13 Polyethylene Glycol (Miralax) 17 gm DAILYPRN PRN ORAL Constipation 07/22/19 16:00 08/21/19 15:59 07/22/19 16:20 Promethazine HCl/ Codeine (Phenergan with Codeine) 5 ml Q4H PRN ORAL For Cough 07/20/19 16:16 08/19/19 16:15 Sennosides (Senokot) 8.6 mg QHS ORAL 07/20/19 21:00 08/15/19 20:59 07/22/19 21:36 Sertraline HCl (Zoloft) 50 mg DAILY ORAL 07/21/19 09:00 08/15/19 08:59 07/23/19 08:12 Sodium Phosphate (Fleet's Sodium Phosl Enema) 133 ml DAILYPRN PRN RECTAL Constipation 07/22/19 16:00 08/21/19 15:59 Zolpidem Tartrate (Ambien) 5 mg BEDTIME PRN ORAL Insomnia 07/20/19 16:17 07/27/19 16:16 07/21/19 22:10 Sharon Gimenez [employer] Jul 23, 2019 10:11
[2019-07-23] MEDS: LORazepam 0.5mg tab ORAL PRN ×2 (10:37→18:39)
[2019-07-23 12:00] VITALS: BP 126/52
--- NOTE | 2019-07-23 13:06 | General Progress Note ---
Assessment/Plan Assessment/Plan: (1) Morbid obesity (2) Lumbago (3) Peripheral neuropathy (4) COPD (5) CHF Patient will be continued on Shedd D/w Dr. Hicks and he concurred. Subjective Date patient seen: Jul 23, 2019 Time patient seen: 12:30 - pm Allergies: Coded Allergies: HALOPERIDOL (Verified Allergy, Unknown, 06/16/17) Subjective Constitutional: Reports: weakness HEENT: Reports: no symptoms Cardiovascular: Reports: no symptoms Respiratory: Reports: shortness of breath Gastrointestinal/Abdominal: Reports: no symptoms Genitourinary: Reports: no symptoms Neurologic/Psychiatric: Reports: no symptoms Endocrine: Reports: no symptoms Hematologic/Lymphatic: Reports: no symptoms Subjective Patient showing no signs of pain or distress. Pain has been tolerated on the Shedd. D/w Nurse. Objective Last 24 Hour Vital Signs Date Time Temp Pulse Resp B/P (MAP) Pulse Ox O2 Delivery O2 Flow Rate FiO2 07/23/19 12:39 97.9 07/23/19 12:09 98 126/84 07/23/19 12:00 98.5 88 20 126/52 (76) 96 07/23/19 11:31 82 24 97 Simple Mask 8.0 50 79 24 95 07/23/19 08:41 63 20 97 Simple Mask 8.0 40 64 20 95 07/23/19 08:26 127 07/23/19 08:12 112 126/84 07/23/19 08:00 97.9 101 17 153/74 (100) 93 07/23/19 07:55 Simple Mask 5.0 07/23/19 07:32 53 20 97 Simple Mask 8.0 40 57 20 94 07/23/19 07:31 94 Simple Mask 8.0 40 07/23/19 04:00 129 07/23/19 04:00 97.9 129 22 126/84 (98) 94 07/23/19 00:00 98.1 91 23 96/59 (71) 94 07/23/19 00:00 117 07/22/19 23:17 53 22 99 Simple Mask 8.0 50 50 22 97 07/22/19 23:14 Simple Mask 5.0 07/22/19 21:37 52 18 98 Simple Mask 8.0 50 50 20 96 07/22/19 21:36 70 131/76 07/22/19 21:00 Simple Mask 5.0 07/22/19 20:00 97.6 70 20 131/76 (94) 97 07/22/19 20:00 120 07/22/19 19:41 97 Simple Mask 8.0 40 07/22/19 17:07 120 121/69 07/22/19 16:26 120 07/22/19 15:54 98.1 96 20 121/69 (86) 93 07/22/19 15:00 123 07/22/19 14:23 123 22 96 Simple Mask 8.0 50 118 24 94 Intake and Output 07/22/19 07/23/19 19:00 07:00 Output Total 1500 ml 800 ml Balance -1500 ml -800 ml Output Urine Total 1500 ml 800 ml Laboratory Tests 07/23/19 04:00: Arterial Blood pH 7.393, Arterial Blood Partial Pressure CO2 73.3*H, Arterial Blood Partial Pressure O2 90.1, Arterial Blood HCO3 43.7*H, Arterial Blood Oxygen Saturation 97.0, Arterial Blood Base Excess 15.3*H, Nathan Test Positive 07/23/19 07:00: Vitamin B12 Level 508, Methylmalonic Acid [Pending] 07/23/19 07:06: White Blood Count 8.9, Red Blood Count 4.15L, Hemoglobin 12.5, Hematocrit 37.0, Mean Corpuscular Volume 89, Mean Corpuscular Hemoglobin 30.0, Mean Corpuscular Hemoglobin Concent 33.7, Red Cell Distribution Width 13.2, Platelet Count 273, Mean Platelet Volume 5.4L, Neutrophils (%) (Auto) 72.0, Lymphocytes (%) (Auto) 15.1L, Monocytes (%) (Auto) 9.1, Eosinophils (%) (Auto) 2.3, Basophils (%) (Auto ) 1.5, Sodium Level 141, Potassium Level 3.2L, Chloride Level 96L, Carbon Dioxide Level 44*H, Anion Gap 2L, Blood Urea Nitrogen 5L, Creatinine 0.6, Estimat Glomerular Filtration Rate , Glucose Level 146H, Calcium Level 8.8 Height (Feet): 5 Height (Inches): 5.00 Weight (Pounds): 398 Objective General Appearance: no apparent distress, alert EENT: PERRL/EOMI, normal ENT inspection Neck: non-tender, normal alignment Cardiovascular: normal rate, regular rhythm Respiratory/Chest: decreased breath sounds Abdomen: non tender, soft Edema: mild edema Neurologic: alert, oriented x 3 Skin: warm/dry David Odom Jul 23, 2019 13:06
[2019-07-23] MEDS: cefTRIAXone 1 GM in D5W 55 ML IVPB SCH (13:44)
--- NOTE | 2019-07-23 14:38 | Cardiology Progress Note ---
Assessment/Plan Problem List: (1) Atrial paroxysmal tachycardia (2) CAD (coronary artery disease) (3) Morbid obesity (4) COPD (chronic obstructive pulmonary disease) (5) HTN (hypertension) (6) Myelopathy Status: stable, progressing Status Narrative Atrial tachyarrhythmia - improved rates, less AT on higher dose of diltiazem. R LE paresis - ? of myelopathy, epidural abscess. Morbid obesity hx of HTN COPD exacerbation Assessment/Plan Continue diltiazem at 60 mg tid. Hold further digoxin Continue o2, bronchodilators for copd. Will continue acetazolamide and hold lasix today, as pt w/ worsening metabolic alkalosis Followup labs in am ? transfer for spine imaging - r/o epidural abscess - management per primary team Subjective ROS Limited/Unobtainable: No Subjective Cardiology for Dr. Paulino Pt has no new c/o Objective Last 24 Hour Vital Signs Date Time Temp Pulse Resp B/P (MAP) Pulse Ox O2 Delivery O2 Flow Rate FiO2 07/23/19 13:04 110 07/23/19 12:39 97.9 07/23/19 12:09 98 126/84 07/23/19 12:00 98.5 88 20 126/52 (76) 96 07/23/19 11:31 82 24 97 Simple Mask 8.0 50 79 24 95 07/23/19 08:41 63 20 97 Simple Mask 8.0 40 64 20 95 07/23/19 08:26 127 07/23/19 08:12 112 126/84 07/23/19 08:00 97.9 101 17 153/74 (100) 93 07/23/19 07:55 Simple Mask 5.0 07/23/19 07:32 53 20 97 Simple Mask 8.0 40 57 20 94 07/23/19 07:31 94 Simple Mask 8.0 40 07/23/19 04:00 129 07/23/19 04:00 97.9 129 22 126/84 (98) 94 07/23/19 00:00 98.1 91 23 96/59 (71) 94 07/23/19 00:00 117 07/22/19 23:17 53 22 99 Simple Mask 8.0 50 50 22 97 07/22/19 23:14 Simple Mask 5.0 07/22/19 21:37 52 18 98 Simple Mask 8.0 50 50 20 96 07/22/19 21:36 70 131/76 07/22/19 21:00 Simple Mask 5.0 07/22/19 20:00 97.6 70 20 131/76 (94) 97 07/22/19 20:00 120 07/22/19 19:41 97 Simple Mask 8.0 40 07/22/19 17:07 120 121/69 07/22/19 16:26 120 07/22/19 15:54 98.1 96 20 121/69 (86) 93 07/22/19 15:00 123 General Appearance: other - morbidly obese WF EENT: PERRL/EOMI Neck: supple, no JVD Rhythm: NSR Cardiovascular: no gallop/murmur Respiratory/Chest: other - scattered rhonchi bilat Abdomen: non tender, soft Extremities: moderate edema Intake and Output 07/22/19 07/23/19 19:00 07:00 Output Total 1500 ml 800 ml Balance -1500 ml -800 ml Output Urine Total 1500 ml 800 ml Laboratory Tests Test 07/23/19 04:00 07/23/19 07:00 07/23/19 07:06 Arterial Blood pH 7.393 (7.350-7.450) Arterial Blood Partial Pressure CO2 73.3 mmHg (35.0-45.0) *H Arterial Blood Partial Pressure O2 90.1 mmHg (75.0-100.0) Arterial Blood HCO3 43.7 mmol/L (22.0-26.0) *H Arterial Blood Oxygen Saturation 97.0 % (95-100) Arterial Blood Base Excess 15.3 (-2-2) *H Nathan Test Positive Vitamin B12 Level 508 PG/ML (193-986) Methylmalonic Acid Pending White Blood Count 8.9 K/UL (4.8-10.8) Red Blood Count 4.15 M/UL (4.20-5.40) L Hemoglobin 12.5 G/DL (12.0-16.0) Hematocrit 37.0 % (37.0-47.0) Mean Corpuscular Volume 89 FL (80-99) Mean Corpuscular Hemoglobin 30.0 PG (27.0-31.0) Mean Corpuscular Hemoglobin Concent 33.7 G/DL (32.0-36.0) Red Cell Distribution Width 13.2 % (11.6-14.8) Platelet Count 273 K/UL (150-450) Mean Platelet Volume 5.4 FL (6.5-10.1) L Neutrophils (%) (Auto) 72.0 % (45.0-75.0) Lymphocytes (%) (Auto) 15.1 % (20.0-45.0) L Monocytes (%) (Auto) 9.1 % (1.0-10.0) Eosinophils (%) (Auto) 2.3 % (0.0-3.0) Basophils (%) (Auto) 1.5 % (0.0-2.0) Sodium Level 141 MMOL/L (136-145) Potassium Level 3.2 MMOL/L (3.5-5.1) L Chloride Level 96 MMOL/L (98-107) L Carbon Dioxide Level 44 MMOL/L (21-32) *H Anion Gap 2 mmol/L (5-15) L Blood Urea Nitrogen 5 mg/dL (7-18) L Creatinine 0.6 MG/DL (0.55-1.30) Estimat Glomerular Filtration Rate mL/min (>60) Glucose Level 146 MG/DL (74-106) H Calcium Level 8.8 MG/DL (8.5-10.1) Madiha Stinson MD Jul 23, 2019 14:38
[2019-07-23 16:00] VITALS: BP 112/59
[2019-07-23] MEDS: Miralax 17gm pkt ORAL PRN (17:31)
--- NOTE | 2019-07-23 19:40 | NUR ---
HAND-OFF: Report given to JAMEE Palomino. RT contacted to give breathing treatment.
--- NOTE | 2019-07-23 19:45 | NUR ---
NURSE NOTES: Received report from Sarai Wilks RN. PT is in bed, awake, awaiting receiving a breathing treatment from RT per report, Pt is on special bariatric bed, locked in lowest position, call light within reach, no c/o pain at this time, discussed plan of care with pt. Told her RT has been called and will see pt.
--- NOTE | 2019-07-23 19:57 | NUR ---
NURSE NOTES: RT in room seeing pt at this time
[2019-07-23 20:00] VITALS: BP 138/83
--- NOTE | 2019-07-23 21:15 | Progress Note ---
DATE: 07/23/2019 SUBJECTIVE: The patient is complaining of less pain in her back, but more numbness on the right side all the way up to her chest. She still cannot move her right leg . Although, she has no problems with her arm, she still has some movement in the left foot. OBJECTIVE: VITAL SIGNS: Blood pressure is 126/84, temperature is 97.9 degrees, respiratory rate is 20, and pulse is 63. NEUROLOGIC: MENTAL STATUS: Her mental status is unchanged. She is awake and alert. CRANIAL NERVE EXAMINATION: CRANIAL NERVE II: Visual howard are intact to confrontation. Fundi are not visualized. CRANIAL NERVE III, IV, AND : Extraocular motility is full. Pupils are approximately 4 mm, round, and light reactive. CRANIAL NERVE V: Facial and corneal sensations are intact to fine touch. CRANIAL NERVE VII: Facial strength is 5/5 bilaterally. CRANIAL NERVE VIII: There is decreased auditory acuity, A.D., probably near normal in the left. CRANIAL NERVE XI: Sternocleidomastoid strength is 5/5. CRANIAL NERVE XII: Tongue protrudes in the midline without fasciculations or atrophy. MUSCLE EXAMINATION: Muscle bulk and tone are normal. The upper extremity strength is probably 5/5. In the lower extremities, there is movement of the left toe. No other muscle movement. Reflexes are trace to +1 in the upper extremities, 0 at the knees, and ankles with upgoing toes and testing for Babinski response bilaterally. COORDINATION: [id number] reveals tremors throughout. No dysmetria. Glit-gr-kesu testing could not be done. SENSORY EXAMINATION: Decreased pinprick and fine touch probably in both the extremities, but much more so on the right than the left all the way up to at least the mid upper thoracic level. IMPRESSION: The patient probably has myelopathy, probably at the cervical or upper thoracic level. Need MRI scan of the brain, cervical, and thoracic level. She unfortunately is too obese to have them done here. Therefore, she has to be transferred to a facility who can do the studies. I doubt that she has a left anterior cerebral artery stroke at this time. The patient's sedimentation rate is 90 suggesting sepsis, but the white count still is basically in the normal range in the recent last couple of days. PLAN: 1. Transfer the patient. 2. Serum copper level and methylmalonic acid level and B12 level. Samir Nash MD DR: Kimmie JOB#: [id number] CC:
[2019-07-23] MEDS: Sennosides 8.6mg tab ORAL SCH (22:45)
[2019-07-24] VITALS (7 sets, daily range): BP systolic 105–131; BP diastolic 57–71
--- NOTE | 2019-07-24 | Progress Note ---
DATE: 07/23/2019 SUBJECTIVE: This is a 73-year-old female patient with cough and back pain and confusion. She is still irritable, agitated, and mood labile, worsened by her medical illness. That is why, her attending physician has requested daily psychiatric consultation in order to stabilize her mood. MENTAL STATUS EXAMINATION: This is a 73-year-old female. Appearance is disheveled. Attitude, irritable and agitated. Affect, guarded and restricted. Intellect poor. Mood, depressed and anxious. Motor activity, psychomotor agitation. Attention span is poor. Orientation x2. Speech is low volume, slurred. Thought process, disorganized and illogical. Insight and judgment is poor. DIAGNOSIS: Major depressive disorder, severe, recurrent with psychotic features, rule out dementia with psychosis. PLAN: Treat her with Zoloft 50 mg daily, Remeron 15 mg at bedtime, Ativan 0.5 mg p.o. q.6 hours p.r.n. anxiety and agitation, Neurontin 300 mg three times a day, and Namenda 5 mg twice a day. A 20 minutes of cognitive behavioral therapy to help her identify automatic negative thoughts and help to convert her negative thoughts to more positive thoughts to reduce depression, anxiety, and mood lability. Chart was reviewed. Discussed with staff. Seen and assessed at bedside. Filipe Yen M.D. DR: ERIC JOB#: [id number] CC:
[2019-07-24] MEDS: LORazepam 0.5mg tab ORAL PRN ×2 (01:56→08:55)
[2019-07-24] MEDS: Miralax 17gm pkt ORAL PRN (01:56)
[2019-07-24] MEDS: Levalbuterol Inh UD 1.25mg/0.5ml HHN SCH ×6 (02:26→22:50)
[2019-07-24] MEDS: HYDROcodone/Acetamin 7.5/325 tab ORAL PRN ×4 (04:43→22:05)
--- NOTE | 2019-07-24 05:45 | NUR ---
NURSE NOTES:Morbidly obese Pt with moisture intertrigo noted to abdominal folds and R groin. Erythema with moisture denudement and mild odor noted. Buttocks and bilat hips assessed and no evidence of skin breakdown noted. Primary nurse reported noting erythema both heels. Both heels re-assessed and erythema has now resolved . Pt denied tenderness when each heel individually palpated. Moisture Barrier Paste applied to abd folds and groin . Abd pads placed within abdominal folds for moisture absorption. Moisture Barrier paste applied to buttocks. Optifoam drsg applied to sacrum and both hips to minimize friction. Cavilon Skin Barrier applied to both heels and each heel covered with Optifoam drsgand both heels floated off mattress with pillows. Pt has been identified as high risks for Skin breakdown secondary to immobility ,incontinence,obesity and a Fermín score of 9. Pt had an APM/KULDEEP Mattress overlay and positioned on side with pillows. Tx.Plan:Apply Moisture Barrier paste to abdominal folds and groin. Place abd pads along abdominal folds Daily and prn. Apply Moisture Barrier paste to buttocks. Cover Sacrum with Optifoam drsg every 3 days and prn. Apply Cavilon Skin Barrier to both heels. Cover each heel with Optifoam drsg. Change every 7 days and prn. APM/KULDEEP Mattress overlay. Reposition at least every 2hours or as tolerated. Off-load heels with pillow.
[2019-07-24] MEDS: NovoLOG Insulin Flexpen SUBQ SCH ×4 (06:17→21:00)
--- NOTE | 2019-07-24 06:54 | NUR ---
NURSE NOTES: Wound care nurse saw patient and there was some redness on heels but no dti. floating heels to offload pressure and redness was no longer there. will inform oncoming nurse
[2019-07-24 07:30] LABS: BASOPHILS % (AUTO) 0.9 % (0.0-2.0); EOSINOPHILS % (AUTO) 1.6 % (0.0-3.0); HEMATOCRIT 37.6 % (37.0-47.0); HEMOGLOBIN 12.7 G/DL (12.0-16.0); LYMPHOCYTES % (AUTO) 17.8 % (20.0-45.0); MEAN CORPUSCULAR VOLUME 89 FL (80-99); MONOCYTES % (AUTO) 5.6 % (1.0-10.0); NEUTROPHILS % (AUTO) 74.1 % (45.0-75.0); PLATELET COUNT 282 K/UL (150-450); RED BLOOD COUNT 4.21 M/UL (4.20-5.40); RED CELL DISTRIBUTION WIDTH 13.3 % (11.6-14.8); WHITE BLOOD COUNT 10.4 K/UL (4.8-10.8)
--- NOTE | 2019-07-24 07:30 | NUR ---
NURSE NOTES: Received pt from STEFANI MANCUSO, Pt is sleeping, pt has simple mask, Pt has intact iv access LFA 24G SL. Pt is on continues heart monitoring. no complain of pain at this moment. all needs attended, bed is locked and is in the lowest position, call light within easy reach. will continue to monitor.
[2019-07-24 07:44] LABS: BLOOD UREA NITROGEN 6 mg/dL (7-18); CALCIUM 9.1 MG/DL (8.5-10.1); CARBON DIOXIDE 40 MMOL/L (21-32); CHLORIDE 97 MMOL/L (98-107); CREATININE 0.6 MG/DL (0.55-1.30); POTASSIUM 3.3 MMOL/L (3.5-5.1); SODIUM 138 MMOL/L (136-145)
--- NOTE | 2019-07-24 07:52 | NUR ---
HAND-OFF: Report given to JAMEE Teran.
[2019-07-24] MEDS: Memantine 5 MG TAB ORAL SCH ×3 (08:55→18:00)
[2019-07-24] MEDS: Aspirin Baby 81mg ORAL SCH (08:55)
[2019-07-24] MEDS: Sertraline 50mg tab ORAL SCH (08:55)
[2019-07-24] MEDS: dilTIAZem HCl 60mg tab ORAL SCH ×5 (08:55→21:00)
[2019-07-24] MEDS: Docusate 100mg cap ORAL SCH ×3 (08:55→18:00)
[2019-07-24] MEDS: Enoxaparin 40mg Inj SUBQ SCH (08:56)
--- NOTE | 2019-07-24 08:59 | General Progress Note ---
Assessment/Plan Assessment/Plan: (1) Morbid obesity (2) Lumbago (3) Peripheral neuropathy (4) COPD (5) CHF Patient will be continued on [place] D/w Dr. Hicks and he concurred. Subjective Date patient seen: Jul 24, 2019 Time patient seen: 08:30 - am Allergies: Coded Allergies: HALOPERIDOL (Verified Allergy, Unknown, 06/16/17) Subjective Constitutional: Reports: weakness HEENT: Reports: no symptoms Cardiovascular: Reports: no symptoms Respiratory: Reports: shortness of breath Gastrointestinal/Abdominal: Reports: no symptoms Genitourinary: Reports: no symptoms Neurologic/Psychiatric: Reports: no symptoms Endocrine: Reports: no symptoms Hematologic/Lymphatic: Reports: no symptoms Subjective Patient is in bed with oxygen applied. Pain has been stable and tolerated on the [place]. She has no new complaints at this time. Objective Last 24 Hour Vital Signs Date Time Temp Pulse Resp B/P (MAP) Pulse Ox O2 Delivery O2 Flow Rate FiO2 07/24/19 08:55 89 123/58 07/24/19 08:00 98.6 89 19 123/58 (79) 96 07/24/19 07:55 91 Venturi Mask 10.0 45 07/24/19 07:55 101 20 98 Venturi Mask 10.0 45 98 20 91 07/24/19 07:55 101 20 98 Venturi Mask 10.0 45 98 20 91 07/24/19 04:08 98.6 116 22 125/66 (85) 93 07/24/19 04:00 98 07/24/19 02:36 79 20 97 Venturi Mask 10.0 45 07/24/19 02:26 78 20 95 Venturi Mask 10.0 45 07/24/19 00:00 99 07/24/19 00:00 98.2 116 30 113/57 (75) 92 07/23/19 23:45 85 20 98 Venturi Mask 10.0 45 07/23/19 23:44 85 20 98 Venturi Mask 10.0 45 07/23/19 23:30 82 20 95 Venturi Mask 10.0 45 07/23/19 23:29 82 20 95 Venturi Mask 10.0 45 07/23/19 22:45 75 138/83 07/23/19 21:46 75 20 98 Venturi Mask 10.0 45 2/9/20 21:33 69 20 94 Venturi Mask 10.0 45 07/23/19 21:00 Simple Mask 5.0 07/23/19 20:00 91 07/23/19 20:00 97.7 90 28 138/83 (101) 92 07/23/19 19:56 79 20 97 Venturi Mask 10.0 45 07/23/19 19:46 75 20 96 Simple Mask 6.0 07/23/19 19:46 96 Simple Mask 6.0 07/23/19 18:02 96.8 07/23/19 17:31 81 112/59 07/23/19 16:47 101 07/23/19 16:00 96.8 81 18 112/59 (76) 96 07/23/19 15:25 65 20 98 Simple Mask 8.0 50 68 20 97 07/23/19 13:04 110 07/23/19 12:09 98 126/84 07/23/19 12:00 98.5 88 20 126/52 (76) 96 07/23/19 11:31 82 24 97 Simple Mask 8.0 50 79 24 95 Intake and Output 07/23/19 07/24/19 19:00 07:00 Intake Total 860 ml 600 ml Output Total 3175 ml 1800 ml Balance -2315 ml -1200 ml Intake Oral 860 ml Other 600 ml Output Urine Total 3175 ml 1800 ml Laboratory Tests 07/24/19 06:20: White Blood Count 10.4, Red Blood Count 4.21, Hemoglobin 12.7, Hematocrit 37.6, Mean Corpuscular Volume 89, Mean Corpuscular Hemoglobin 30.1, Mean Corpuscular Hemoglobin Concent 33.7, Red Cell Distribution Width 13.3, Platelet Count 282, Mean Platelet Volume 5.3L, Neutrophils (%) (Auto) 74.1, Lymphocytes (%) (Auto) 17.8L, Monocytes (%) (Auto) 5.6, Eosinophils (%) (Auto) 1.6, Basophils (%) (Auto ) 0.9, Sodium Level 138, Potassium Level 3.3L, Chloride Level 97L, Carbon Dioxide Level 40H, Blood Urea Nitrogen 6L, Creatinine 0.6, Estimat Glomerular Filtration Rate , Glucose Level 142H, Calcium Level 9.1, Magnesium Level 1.8 Height (Feet): 5 Height (Inches): 5.00 Weight (Pounds): 398 Objective General Appearance: no apparent distress, alert EENT: PERRL/EOMI, normal ENT inspection Neck: non-tender, normal alignment Cardiovascular: normal rate, regular rhythm Respiratory/Chest: decreased breath sounds Abdomen: non tender, soft Edema: mild edema Neurologic: alert, oriented x 3 Skin: warm/dry David Odom Jul 24, 2019 08:59
--- NOTE | 2019-07-24 09:14 | General Progress Note ---
Assessment/Plan Problem List: (1) HTN (hypertension) ICD Codes: I10 - Essential (primary) hypertension SNOMED: 48174927 (2) COPD (chronic obstructive pulmonary disease) ICD Codes: J44.9 - Chronic obstructive pulmonary disease, unspecified SNOMED: 76974031 (3) Hypothyroidism ICD Codes: E03.9 - Hypothyroidism, unspecified SNOMED: 04852722 (4) Peripheral edema ICD Codes: R60.9 - Edema, unspecified SNOMED: 400133203 Status: unchanged Assessment/Plan: pt dit o2 pulm tx bp bs control cbc bmp in am dc plan vc scan Subjective Constitutional: Reports: weakness Allergies: Coded Allergies: HALOPERIDOL (Verified Allergy, Unknown, 06/16/17) All Systems: reviewed and negative except above Subjective pulm tx c/o lbp Objective Last 24 Hour Vital Signs Date Time Temp Pulse Resp B/P (MAP) Pulse Ox O2 Delivery O2 Flow Rate FiO2 07/24/19 08:55 89 123/58 07/24/19 08:00 98.6 89 19 123/58 (79) 96 07/24/19 07:55 91 Venturi Mask 10.0 45 07/24/19 07:55 101 20 98 Venturi Mask 10.0 45 98 20 91 07/24/19 07:55 101 20 98 Venturi Mask 10.0 45 98 20 91 07/24/19 04:08 98.6 116 22 125/66 (85) 93 07/24/19 04:00 98 07/24/19 02:36 79 20 97 Venturi Mask 10.0 45 07/24/19 02:26 78 20 95 Venturi Mask 10.0 45 07/24/19 00:00 99 07/24/19 00:00 98.2 116 30 113/57 (75) 92 07/23/19 23:45 85 20 98 Venturi Mask 10.0 45 07/23/19 23:44 85 20 98 Venturi Mask 10.0 45 07/23/19 23:30 82 20 95 Venturi Mask 10.0 45 07/23/19 23:29 82 20 95 Venturi Mask 10.0 45 07/23/19 22:45 75 138/83 07/23/19 21:46 75 20 98 Venturi Mask 10.0 45 07/23/19 21:33 69 20 94 Venturi Mask 10.0 45 07/23/19 21:00 Simple Mask 5.0 07/23/19 20:00 91 07/23/19 20:00 97.7 90 28 138/83 (101) 92 07/23/19 19:56 79 20 97 Venturi Mask 10.0 45 07/23/19 19:46 75 20 96 Simple Mask 6.0 07/23/19 19:46 96 Simple Mask 6.0 07/23/19 18:02 96.8 07/23/19 17:31 81 112/59 07/23/19 16:47 101 07/23/19 16:00 96.8 81 18 112/59 (76) 96 07/23/19 15:25 65 20 98 Simple Mask 8.0 50 68 20 97 07/23/19 13:04 110 07/23/19 12:09 98 126/84 07/23/19 12:00 98.5 88 20 126/52 (76) 96 07/23/19 11:31 82 24 97 Simple Mask 8.0 50 79 24 95 Intake and Output 07/23/19 07/24/19 19:00 07:00 Intake Total 860 ml 600 ml Output Total 3175 ml 1800 ml Balance -2315 ml -1200 ml Intake Oral 860 ml Other 600 ml Output Urine Total 3175 ml 1800 ml Laboratory Tests 07/24/19 06:20: White Blood Count 10.4, Red Blood Count 4.21, Hemoglobin 12.7, Hematocrit 37.6, Mean Corpuscular Volume 89, Mean Corpuscular Hemoglobin 30.1, Mean Corpuscular Hemoglobin Concent 33.7, Red Cell Distribution Width 13.3, Platelet Count 282, Mean Platelet Volume 5.3L, Neutrophils (%) (Auto) 74.1, Lymphocytes (%) (Auto) 17.8L, Monocytes (%) (Auto) 5.6, Eosinophils (%) (Auto) 1.6, Basophils (%) (Auto ) 0.9, Sodium Level 138, Potassium Level 3.3L, Chloride Level 97L, Carbon Dioxide Level 40H, Blood Urea Nitrogen 6L, Creatinine 0.6, Estimat Glomerular Filtration Rate , Glucose Level 142H, Calcium Level 9.1, Magnesium Level 1.8 Height (Feet): 5 Height (Inches): 5.00 Weight (Pounds): 398 General Appearance: lethargic EENT: normal ENT inspection Neck: normal alignment Cardiovascular: normal peripheral pulses, normal rate, regular rhythm Respiratory/Chest: chest wall non-tender, lungs clear, normal breath sounds Abdomen: normal bowel sounds, non tender, soft Extremities: normal inspection Edema: no edema noted Arm (L), no edema noted Arm (R), no edema noted Leg (L), no edema noted Leg (R), no edema noted Pedal (L), no edema noted Pedal (R), no edema noted Generalized Neurologic: responsive, motor weakness Skin: normal pigmentation, warm/dry Bill Lane DO Jul 24, 2019 09:14
--- NOTE | 2019-07-24 10:17 | NUR ---
RADIOLOGY DEPT., CHEST X-RAY DONE.-P.DYE
[2019-07-24] MEDS: Budesonide HHN 0.25mg/2ml ud HHN SCH ×2 (10:22→22:45)
--- NOTE | 2019-07-24 11:30 | NUR ---
NURSE NOTES: Dr ROY is aware about ABG results, ordered to put pt on bipap, RT notified. will continue to monitor.
--- NOTE | 2019-07-24 11:40 | Pulmonology Progress Note ---
Assessment/Plan Problems: (1) Collapse of left lung (2) COPD (chronic obstructive pulmonary disease) (3) Peripheral edema (4) MELVIN (obstructive sleep apnea) (5) Schizophrenia (6) Morbid obesity (7) HTN (hypertension) (8) Hypothyroidism Assessment/Plan cxr reviewed, Left lung slightly better aerated, but still lots of edema and infiltrate on laxis, check BNP respiratory treatment continue supplemental oxygen symptomatic treatment titrate fio2 to sat of 92% Subjective ROS Limited/Unobtainable: No Constitutional: Reports: no symptoms Respiratory: Reports: no symptoms Allergies: Coded Allergies: HALOPERIDOL (Verified Allergy, Unknown, 06/16/17) Objective Last 24 Hour Vital Signs Date Time Temp Pulse Resp B/P (MAP) Pulse Ox O2 Delivery O2 Flow Rate FiO2 07/24/19 10:58 96 20 98 Venturi Mask 10.0 45 94 20 99 07/24/19 10:22 101 18 97 Venturi Mask 10.0 45 99 20 91 07/24/19 09:53 98.6 07/24/19 09:00 Simple Mask 5.0 07/24/19 08:55 89 123/58 07/24/19 08:00 98.6 89 19 123/58 (79) 96 07/24/19 07:55 91 Venturi Mask 10.0 45 07/24/19 07:55 101 20 98 Venturi Mask 10.0 45 98 20 91 07/24/19 07:55 101 20 98 Venturi Mask 10.0 45 98 20 91 07/24/19 07:36 90 07/24/19 04:08 98.6 116 22 125/66 (85) 93 07/24/19 04:00 98 07/24/19 02:36 79 20 97 Venturi Mask 10.0 45 07/24/19 02:26 78 20 95 Venturi Mask 10.0 45 07/24/19 00:00 99 07/24/19 00:00 98.2 116 30 113/57 (75) 92 07/23/19 23:45 85 20 98 Venturi Mask 10.0 45 07/23/19 23:44 85 20 98 Venturi Mask 10.0 45 07/23/19 23:30 82 20 95 Venturi Mask 10.0 45 07/23/19 23:29 82 20 95 Venturi Mask 10.0 45 2/9/20 22:45 75 138/83 07/23/19 21:46 75 20 98 Venturi Mask 10.0 45 07/23/19 21:33 69 20 94 Venturi Mask 10.0 45 07/23/19 21:00 Simple Mask 5.0 07/23/19 20:00 91 07/23/19 20:00 97.7 90 28 138/83 (101) 92 07/23/19 19:56 79 20 97 Venturi Mask 10.0 45 07/23/19 19:46 75 20 96 Simple Mask 6.0 07/23/19 19:46 96 Simple Mask 6.0 07/23/19 17:31 81 112/59 07/23/19 16:47 101 07/23/19 16:00 96.8 81 18 112/59 (76) 96 07/23/19 15:25 65 20 98 Simple Mask 8.0 50 68 20 97 07/23/19 13:04 110 07/23/19 12:09 98 126/84 07/23/19 12:00 98.5 88 20 126/52 (76) 96 Intake and Output 07/23/19 07/24/19 19:00 07:00 Intake Total 860 ml 600 ml Output Total 3175 ml 1800 ml Balance -2315 ml -1200 ml Intake Oral 860 ml Other 600 ml Output Urine Total 3175 ml 1800 ml General Appearance: WD/WN HEENT: normocephalic, atraumatic Respiratory/Chest: chest wall non-tender, lungs clear Cardiovascular: normal peripheral pulses, murmur diastolic, murmur systolic Abdomen: normal bowel sounds Genitourinary: normal external genitalia Extremities: no cyanosis, no clubbing Skin: no ulcers Neurologic/Psychiatric: it generalist II-XII grossly normal Laboratory Tests 07/24/19 06:20: White Blood Count 10.4, Red Blood Count 4.21, Hemoglobin 12.7, Hematocrit 37.6, Mean Corpuscular Volume 89, Mean Corpuscular Hemoglobin 30.1, Mean Corpuscular Hemoglobin Concent 33.7, Red Cell Distribution Width 13.3, Platelet Count 282, Mean Platelet Volume 5.3L, Neutrophils (%) (Auto) 74.1, Lymphocytes (%) (Auto) 17.8L, Monocytes (%) (Auto) 5.6, Eosinophils (%) (Auto) 1.6, Basophils (%) (Auto ) 0.9, Sodium Level 138, Potassium Level 3.3L, Chloride Level 97L, Carbon Dioxide Level 40H, Blood Urea Nitrogen 6L, Creatinine 0.6, Estimat Glomerular Filtration Rate , Glucose Level 142H, Calcium Level 9.1, Magnesium Level 1.8 07/24/19 10:48: Arterial Blood pH 7.307L, Arterial Blood Partial Pressure CO2 84.3*H, Arterial Blood Partial Pressure O2 71.7L, Arterial Blood HCO3 41.2*H, Arterial Blood Oxygen Saturation 94.2L, Arterial Blood Base Excess 11.3*H, Nathan Test Positive Current Medications Medications (Trade) Dose Ordered Sig/Marleni Route PRN Reason Start Time Stop Time Status Last Admin Dose Admin Acetaminophen (Tylenol) 650 mg Q6H PRN ORAL Mild Pain/Temp > 100.5 07/20/19 16:14 08/19/19 16:13 Acetaminophen/ Hydrocodone Bitart ([place] 5/325) 1 tab Q6H PRN ORAL Moderate Pain (Pain Scale 4-6) 07/20/19 16:15 07/27/19 16:14 07/20/19 21:44 Acetaminophen/ Hydrocodone Bitart ([place] 7.5/325) 1 tab Q4H PRN ORAL Severe Pain (Pain Scale 7-10) 07/20/19 16:15 07/27/19 16:14 07/24/19 09:23 Acetazolamide (Diamox) 250 mg TWICE A DAY ORAL 07/23/19 18:00 08/22/19 17:59 07/24/19 08:55 Acetylcysteine (Mucomyst) 400 mg Q8HRT INH 07/20/19 23:00 08/15/19 07:29 07/24/19 07:55 Aspirin (ASA) 81 mg DAILY ORAL 07/21/19 09:00 08/15/19 08:59 07/24/19 08:55 Budesonide (Pulmicort) 0.5 mg Q12HRT HHN 07/20/19 22:00 08/15/19 09:59 07/24/19 10:22 Ceftriaxone Sodium 1 gm/ Dextrose 55 ml @ 110 mls/hr Q24H IVPB 07/21/19 14:00 07/25/19 13:59 07/23/19 13:44 Dextrose (Dextrose 50%) 25 ml Q30M PRN IV Hypoglycemia 07/20/19 16:30 08/15/19 07:29 Dextrose (Dextrose 50%) 50 ml Q30M PRN IV Hypoglycemia 07/20/19 16:30 08/15/19 07:29 Diltiazem HCl (Cardizem) 60 mg QID ORAL 07/22/19 18:00 08/20/19 12:59 07/24/19 08:55 Docusate Sodium (Colace) 100 mg TWICE A DAY ORAL 07/20/19 18:00 08/15/19 08:59 07/24/19 08:55 Enoxaparin Sodium (Lovenox) 40 mg DAILY SUBQ 07/21/19 09:00 08/18/19 08:59 07/24/19 08:56 Gabapentin (Neurontin) 300 mg THREE TIMES A DAY ORAL 07/20/19 18:00 08/15/19 08:59 07/24/19 08:55 Guaifenesin (Robitussin) 200 mg Q4H PRN ORAL FOR COUGH 07/20/19 16:15 08/19/19 16:14 Insulin Aspart (NovoLOG) BEFORE MEALS AND HS SUBQ 07/20/19 16:30 08/15/19 11:29 07/23/19 06:15 Levalbuterol HCl (Xopenex) 1.25 mg Q4HRT HHN 07/21/19 14:00 07/26/19 13:59 07/24/19 10:24 Lorazepam (Ativan) 0.5 mg Q6H PRN ORAL For Anxiety 07/20/19 16:16 07/27/19 16:15 07/24/19 08:55 Memantine (Namenda) 5 mg BID ORAL 07/20/19 18:00 08/15/19 08:59 07/24/19 08:55 Mirtazapine (Remeron) 15 mg BEDTIME ORAL 07/20/19 21:00 08/15/19 20:59 07/23/19 22:45 Naloxone HCl (Narcan) 0.1 mg PRN PRN IV Sedation scale 3 or 4 07/20/19 16:16 07/27/19 16:15 Ondansetron HCl (Zofran) 4 mg Q4H PRN IVP Nausea & Vomiting 07/22/19 07:15 08/21/19 07:14 07/24/19 04:43 Pantoprazole (Protonix) 40 mg BEFORE BREAKFAST ORAL 07/21/19 06:30 08/16/19 06:29 07/24/19 06:04 Polyethylene Glycol (Miralax) 17 gm DAILYPRN PRN ORAL Constipation 07/22/19 16:00 08/21/19 15:59 07/24/19 01:56 Promethazine HCl/ Codeine (Phenergan with Codeine) 5 ml Q4H PRN ORAL For Cough 07/20/19 16:16 08/19/19 16:15 Sennosides (Senokot) 8.6 mg QHS ORAL 07/20/19 21:00 08/15/19 20:59 07/23/19 22:45 Sertraline HCl (Zoloft) 50 mg DAILY ORAL 07/21/19 09:00 08/15/19 08:59 07/24/19 08:55 Sodium Phosphate (Fleet's Sodium Phosl Enema) 133 ml DAILYPRN PRN RECTAL Constipation 07/22/19 16:00 08/21/19 15:59 Zolpidem Tartrate (Ambien) 5 mg BEDTIME PRN ORAL Insomnia 07/20/19 16:17 07/27/19 16:16 07/21/19 22:10 Fartun Gan MD Jul 24, 2019 11:39
--- NOTE | 2019-07-24 12:51 | Infectious Diseases Prog Note ---
Assessment/Plan Assessment/Plan Assessment: Sepsis, Sp PNA CHF L lung collapse -07/23 CXR: Improved aeration left lung with persistent moderate diffuse alveolar infiltrate suspicious for pneumonia and/or atelectasis. There is unchanged mild superimposed pulmonary edema with improving mild left pleural effusion -07/21 US Chest:No pleural effusion -07/20 CXR: Complete opacification of left hemithorax at least partly due to atelectasis. Some volume loss noted.Congestive heart failure. -07/18 CXR: Suspected left perihilar infiltrate. Correlate clinically. Slightly worsening CH -07/15 CXR: Limited hypoventilatory exam. Prominence of the central bronchovascular structures may be in part due to low lung volumes. 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 Will continue to follow along with you. Discussed with RN. Subjective Allergies: Coded Allergies: HALOPERIDOL (Verified Allergy, Unknown, 06/16/17) Subjective afebrile no leukocytosis on face mask Objective Vital Signs Last 24 Hour Vital Signs Date Time Temp Pulse Resp B/P (MAP) Pulse Ox O2 Delivery O2 Flow Rate FiO2 07/24/19 12:39 75 131/62 07/24/19 11:25 74 19 92 Facial 45 07/24/19 10:58 96 20 98 Venturi Mask 10.0 45 94 20 99 07/24/19 10:22 101 18 97 Venturi Mask 10.0 45 99 20 91 07/24/19 09:53 98.6 07/24/19 09:00 Simple Mask 5.0 07/24/19 08:55 89 123/58 07/24/19 08:00 98.6 89 19 123/58 (79) 96 07/24/19 07:55 91 Venturi Mask 10.0 45 07/24/19 07:55 101 20 98 Venturi Mask 10.0 45 98 20 91 07/24/19 07:55 101 20 98 Venturi Mask 10.0 45 98 20 91 07/24/19 07:36 90 07/24/19 04:08 98.6 116 22 125/66 (85) 93 07/24/19 04:00 98 07/24/19 02:36 79 20 97 Venturi Mask 10.0 45 07/24/19 02:26 78 20 95 Venturi Mask 10.0 45 07/24/19 00:00 99 07/24/19 00:00 98.2 116 30 113/57 (75) 92 07/23/19 23:45 85 20 98 Venturi Mask 10.0 45 07/23/19 23:44 85 20 98 Venturi Mask 10.0 45 07/23/19 23:30 82 20 95 Venturi Mask 10.0 45 07/23/19 23:29 82 20 95 Venturi Mask 10.0 45 07/23/19 22:45 75 138/83 07/23/19 21:46 75 20 98 Venturi Mask 10.0 45 07/23/19 21:33 69 20 94 Venturi Mask 10.0 45 07/23/19 21:00 Simple Mask 5.0 07/23/19 20:00 91 07/23/19 20:00 97.7 90 28 138/83 (101) 92 07/23/19 19:56 79 20 97 Venturi Mask 10.0 45 07/23/19 19:46 75 20 96 Simple Mask 6.0 07/23/19 19:46 96 Simple Mask 6.0 07/23/19 17:31 81 112/59 07/23/19 16:47 101 07/23/19 16:00 96.8 81 18 112/59 (76) 96 07/23/19 15:25 65 20 98 Simple Mask 8.0 50 68 20 97 07/23/19 13:04 110 Height (Feet): 5 Height (Inches): 5.00 Weight (Pounds): 398 Objective GENERAL: O2 in place, slight short of breath in bed.. CARDIOVASCULAR: No murmur. LUNGS: Poor air exchange. ABDOMEN: B non tender, soft EXTREMITIES: No cyanosis or clubbing. 1+ edema. NEUROLOGIC: The patient is moving all extremities, slightly weak. Laboratory Tests Test 07/24/19 06:20 07/24/19 10:48 White Blood Count 10.4 K/UL (4.8-10.8) Red Blood Count 4.21 M/UL (4.20-5.40) Hemoglobin 12.7 G/DL (12.0-16.0) Hematocrit 37.6 % (37.0-47.0) Mean Corpuscular Volume 89 FL (80-99) Mean Corpuscular Hemoglobin 30.1 PG (27.0-31.0) Mean Corpuscular Hemoglobin Concent 33.7 G/DL (32.0-36.0) Red Cell Distribution Width 13.3 % (11.6-14.8) Platelet Count 282 K/UL (150-450) Mean Platelet Volume 5.3 FL (6.5-10.1) L Neutrophils (%) (Auto) 74.1 % (45.0-75.0) Lymphocytes (%) (Auto) 17.8 % (20.0-45.0) L Monocytes (%) (Auto) 5.6 % (1.0-10.0) Eosinophils (%) (Auto) 1.6 % (0.0-3.0) Basophils (%) (Auto) 0.9 % (0.0-2.0) Sodium Level 138 MMOL/L (136-145) Potassium Level 3.3 MMOL/L (3.5-5.1) L Chloride Level 97 MMOL/L (98-107) L Carbon Dioxide Level 40 MMOL/L (21-32) H Blood Urea Nitrogen 6 mg/dL (7-18) L Creatinine 0.6 MG/DL (0.55-1.30) Estimat Glomerular Filtration Rate mL/min (>60) Glucose Level 142 MG/DL (74-106) H Calcium Level 9.1 MG/DL (8.5-10.1) Magnesium Level 1.8 MG/DL (1.8-2.4) Arterial Blood pH 7.307 (7.350-7.450) Arterial Blood Partial Pressure CO2 84.3 mmHg (35.0-45.0) *H Arterial Blood Partial Pressure O2 71.7 mmHg (75.0-100.0) L Arterial Blood HCO3 41.2 mmol/L (22.0-26.0) *H Arterial Blood Oxygen Saturation 94.2 % (95-100) L Arterial Blood Base Excess 11.3 (-2-2) *H Nathan Test Positive Current Medications Medications (Trade) Dose Ordered Sig/Marleni Route PRN Reason Start Time Stop Time Status Last Admin Dose Admin Acetaminophen (Tylenol) 650 mg Q6H PRN ORAL Mild Pain/Temp > 100.5 07/20/19 16:14 08/19/19 16:13 Acetaminophen/ Hydrocodone Bitart ([place] 5/325) 1 tab Q6H PRN ORAL Moderate Pain (Pain Scale 4-6) 07/20/19 16:15 07/27/19 16:14 07/20/19 21:44 Acetaminophen/ Hydrocodone Bitart ([place] 7.5/325) 1 tab Q4H PRN ORAL Severe Pain (Pain Scale 7-10) 07/20/19 16:15 07/27/19 16:14 07/24/19 09:23 Acetazolamide (Diamox) 250 mg TWICE A DAY ORAL 07/23/19 18:00 08/22/19 17:59 07/24/19 08:55 Acetylcysteine (Mucomyst) 400 mg Q8HRT INH 07/20/19 23:00 08/15/19 07:29 07/24/19 07:55 Aspirin (ASA) 81 mg DAILY ORAL 07/21/19 09:00 08/15/19 08:59 07/24/19 08:55 Budesonide (Pulmicort) 0.5 mg Q12HRT HHN 07/20/19 22:00 08/15/19 09:59 07/24/19 10:22 Ceftriaxone Sodium 1 gm/ Dextrose 55 ml @ 110 mls/hr Q24H IVPB 07/21/19 14:00 07/25/19 13:59 07/23/19 13:44 Dextrose (Dextrose 50%) 25 ml Q30M PRN IV Hypoglycemia 07/20/19 16:30 08/15/19 07:29 Dextrose (Dextrose 50%) 50 ml Q30M PRN IV Hypoglycemia 07/20/19 16:30 08/15/19 07:29 Diltiazem HCl (Cardizem) 60 mg QID ORAL 07/22/19 18:00 08/20/19 12:59 07/24/19 12:39 Docusate Sodium (Colace) 100 mg TWICE A DAY ORAL 07/20/19 18:00 08/15/19 08:59 07/24/19 08:55 Enoxaparin Sodium (Lovenox) 40 mg DAILY SUBQ 07/21/19 09:00 08/18/19 08:59 07/24/19 08:56 Gabapentin (Neurontin) 300 mg THREE TIMES A DAY ORAL 07/20/19 18:00 08/15/19 08:59 07/24/19 12:38 Guaifenesin (Robitussin) 200 mg Q4H PRN ORAL FOR COUGH 07/20/19 16:15 08/19/19 16:14 Insulin Aspart (NovoLOG) BEFORE MEALS AND HS SUBQ 07/20/19 16:30 08/15/19 11:29 07/24/19 12:40 Levalbuterol HCl (Xopenex) 1.25 mg Q4HRT HHN 07/21/19 14:00 07/26/19 13:59 07/24/19 10:24 Lorazepam (Ativan) 0.5 mg Q6H PRN ORAL For Anxiety 07/20/19 16:16 07/27/19 16:15 07/24/19 08:55 Memantine (Namenda) 5 mg BID ORAL 07/20/19 18:00 08/15/19 08:59 07/24/19 08:55 Mirtazapine (Remeron) 15 mg BEDTIME ORAL 07/20/19 21:00 08/15/19 20:59 07/23/19 22:45 Naloxone HCl (Narcan) 0.1 mg PRN PRN IV Sedation scale 3 or 4 07/20/19 16:16 07/27/19 16:15 Ondansetron HCl (Zofran) 4 mg Q4H PRN IVP Nausea & Vomiting 07/22/19 07:15 08/21/19 07:14 07/24/19 04:43 Pantoprazole (Protonix) 40 mg BEFORE BREAKFAST ORAL 07/21/19 06:30 08/16/19 06:29 07/24/19 06:04 Polyethylene Glycol (Miralax) 17 gm DAILYPRN PRN ORAL Constipation 07/22/19 16:00 08/21/19 15:59 07/24/19 01:56 Promethazine HCl/ Codeine (Phenergan with Codeine) 5 ml Q4H PRN ORAL For Cough 07/20/19 16:16 08/19/19 16:15 Sennosides (Senokot) 8.6 mg QHS ORAL 07/20/19 21:00 08/15/19 20:59 07/23/19 22:45 Sertraline HCl (Zoloft) 50 mg DAILY ORAL 07/21/19 09:00 08/15/19 08:59 07/24/19 08:55 Sodium Phosphate (Fleet's Sodium Phosl Enema) 133 ml DAILYPRN PRN RECTAL Constipation 07/22/19 16:00 08/21/19 15:59 Zolpidem Tartrate (Ambien) 5 mg BEDTIME PRN ORAL Insomnia 07/20/19 16:17 07/27/19 16:16 07/21/19 22:10 Ange Grant M.D. Jul 24, 2019 12:51
--- NOTE | 2019-07-24 14:30 | NUR ---
CASE MANAGEMENT:REVIEW 07/24/19 SI: PNA. COPD. CHF COLLAPSE OF LEFT LUNG 98.6 89 19 123/58 96% ON VENTURI MASK 10L/45% FIO2 PH-7.3 PCO2+84.3 PO2-71.7 HCO3+41.2 IS: IV ROCEPHIN Q24 ASA PO QD ZOLOFT PO QD PROTONIX PO QAM MUCOMYST INH Q8HRS PULMICORT HHN Q12HRS REMERON PO QHS CARDIZEM PO QID DIAMOX PO BID LOVENOX SQ QD : NOW ON TELEMETRY DCP: PATIENT IS FROM [facility] Addendum: 07/24/19 at 1442 by ALTHEA CLARKE LVN LVN PLAN: PLACE ON BIPAP TRANSFER TO STEP DOWN UNIT DR OCHOA IS REQUESTING TRANSFER FOR MRI/CT~ BRAIN,CERVICAL AND THORACIC LEVEL
--- NOTE | 2019-07-24 14:35 | Diagnostic Imaging Report ---
Indication: Dyspnea Comparison: 07/23/2019 A single view chest radiograph was obtained. Findings: There is a hazy increasing opacity at the left lung base consistent with a pleural effusion. Pulmonary vascular congestion present with interstitial densities. Heart is enlarged. IMPRESSION: Suspect a left pleural effusion which may shifted or increased. CHF
--- NOTE | 2019-07-24 14:47 | NUR ---
TRANSFER UPDATE CALLED AND SPOKE WITH DR OCHOA REGARDING BARRIERS TO TRANSFER. HE FEELS THE MRI NEEDS TO BE DONE CALLED [facility] T: [phone] THEIR MRI ONLY HOLDS UP TO 400LBS.... THEY ARE REQUESTING EXACT AND ACCURATE WEIGHT AND ALSO MEASUREMENT FROM SHOULDER TO SHOULDER DISCUSSED NEEDS WITH TELEMETRY CHARGE NURSE
[2019-07-24] MEDS: cefTRIAXone 1 GM in D5W 55 ML IVPB SCH (15:00)
--- NOTE | 2019-07-24 15:35 | NUR ---
As per [employer] requests, Measurements as follows: Shoulder to Shoulder = 27 inches, Abd. Girth = 64 inches, Wt. 319.4 lbs. ( weighed by Bed).
--- NOTE | 2019-07-24 16:15 | Consultation ---
DATE OF CONSULTATION: 07/24/2019 CONSULTING PHYSICIAN: Ulysses Moore M.D. REFERRING PHYSICIAN: Bill Lane D.O. REASON FOR CONSULTATION: 1. Metabolic alkalosis. 2. Hypokalemia. HISTORY OF PRESENT ILLNESS: The patient is a morbidly obese female who was admitted on July 16, 2019 for intractable lower back pain. She presented from [facility]. During her admission, the patient does have atrial fibrillation and has been diuresed. Her serum bicarb had peaked up to 44 with variable low potassium. Both Cardiology and pain management have been consulted. The patient has been initiated on Diamox. PAST MEDICAL HISTORY: 1. Morbid obesity. 2. Diabetes mellitus. 3. Hypertension. 4. Back pain. 5. Peripheral edema. 6. CHF. 7. COPD. 8. Hypothyroidism. 9. Arthritis. PAST SURGICAL HISTORY: 1. Cholecystectomy. 2. Appendectomy. 3. Hysterectomy. ALLERGIES: Haldol. SOCIAL HISTORY: No tobacco, alcohol, or illicit drug use. FAMILY HISTORY: Noncontributory. REVIEW OF SYSTEMS: NEUROLOGIC: No headache, change in vision, syncope, or presyncopal episodes. CARDIOVASCULAR: No current chest pain, palpitations, or angina. PULMONARY: Shortness of breath and nonproductive cough. GASTROINTESTINAL/GENITOURINARY: No changes in urinary or bowel habits. No nausea, vomiting, or diarrhea. ENDOCRINOLOGIC: No night sweats, fevers, or chills. MUSCULOSKELETAL: The patient is feeling weak, tired and fatigued. PHYSICAL EXAMINATION: VITAL SIGNS: Blood pressure 123/58, pulse 89, temperature 98.6, on Venturimask oxygen flow rate of 5, FiO2 of 45. GENERAL: The patient is awake, arousable, in no overt distress. HEENT: Extraocular muscles intact. No lymphadenopathy noted. CARDIOVASCULAR: S1, S2. No rubs or gallops. PULMONARY: Mild upper rhonchi with fair air movement in all lung howard. ABDOMEN: Obese, nondistended, and nontender. EXTREMITIES: Trace edema versus obesity. ASSESSMENT AND PLAN: 1. Metabolic alkalosis secondary to diuresis and maintenance alkalosis from hypokalemia. At this time, agree with the use of Diamox. To correct maintenance alkalosis, hypokalemia must be aggressively replaced and corrected. 2. Hypokalemia, due to diuretics. Agree with Diamox and replacing hypokalemia. Keep potassium greater than 4. 3. Congestive heart failure and atrial fibrillation per Cardiology. 4. Chronic low back pain. Defer to pain management. Ulysses Moore MD DR: RICH JOB#: [id number] CC:
--- NOTE | 2019-07-24 16:41 | NUR ---
NURSE NOTES: Received patient from telemetry. On venturi mask 10L Fio2 45%, Patient is awake, alert, verbal, no respiratory distress at this time. No belongings noted upon transfer. Will continue plan of care.
--- NOTE | 2019-07-24 16:45 | Progress Note ---
DATE: 07/24/2019 SUBJECTIVE: This is a 73-year-old female patient. She has cough. She has back pain. She has mood lability. She has got a decline in cognition below baseline, but she is still very mood labile and irritable that is why her attending physician has requested daily psychiatric consultation. She also has coronary artery disease, tachycardia, COPD, peripheral edema, chest pain, hypertension, hypothyroidism. Because of her medical illness causing her to have increased mood lability and decline in cognition below baseline that is why her attending physician has requested daily psychiatric consultation at this time. MENTAL STATUS EXAMINATION: This is a 73-year-old female. Appearance is disheveled. Attitude, irritable and agitated. Affect, guarded and restricted. Intellect poor. Mood, depressed and anxious. Motor activity, psychomotor agitation. Attention span is poor. Orientation x2. Speech is pressured. Thought process, disorganized and illogical. Insight and judgment is poor. DIAGNOSIS: Major depressive disorder, severe, recurrent with psychotic features, rule out dementia with psychosis. PLAN: Treat her with psychotropic medication regimen consisting of Zoloft 50 mg, Remeron 15 mg at bedtime, Namenda 5 mg twice a day, Ativan 0.5 mg every six hours p.r.n. anxiety and agitation, and Neurontin 300 mg three times a day. A 20 minutes of cognitive behavioral therapy to help her identify automatic negative thoughts and help convert her negative thoughts to more positive thoughts to reduce depression, anxiety, and mood lability. Chart was reviewed. Discussed with staff. Seen and assessed at bedside. . Filipe Yen M.D. DR: Shine JOB#: [id number] CC:
--- NOTE | 2019-07-24 16:50 | NUR ---
NURSE NOTES: Patient refused to have insulin at this time. She verbalized that she's not gonna eat dinner tonight.
--- NOTE | 2019-07-24 16:55 | NUR ---
NURSE NOTES: Transferred pt to [facility] at 1620, pt is A&O x4. pt has venturi mask, V/S in normal range, skin is intact, Pt has Huertas cath in place is working good with 1200 Urin out put. Report given to JAMEE BOBO.
[2019-07-24] MEDS ORDERED: LORazepam 0.5mg tab ORAL PRN (17:00)
[2019-07-24] MEDS ORDERED: Fleet's Enema 133ml RECTAL PRN (17:00)
[2019-07-24] MEDS ORDERED: Naloxone 0.4mg/ml Inj IV PRN (17:00)
[2019-07-24] MEDS ORDERED: Miralax 17gm pkt ORAL PRN (17:00)
[2019-07-24] MEDS ORDERED: Promethazine/Codeine 5ml UD ORAL PRN (17:00)
[2019-07-24] MEDS ORDERED: HYDROcodone/Acetamin 5/325 tab ORAL PRN (17:00)
[2019-07-24] MEDS ORDERED: guaiFENesin 100mg/5ml Liq ud ORAL PRN (17:00)
--- NOTE | 2019-07-24 17:30 | NUR ---
NURSE NOTES: Patient refused to use bipap at this time.
--- NOTE | 2019-07-24 19:10 | NUR ---
NURSE NOTES: Received pt from JAMEE Haddad; Pt is awake and oriented x3-4. Pt placed on tele monitor and remains SR with a HR of 92 noted with no s/sx of cardiac distress. Pt is currently on Venturi mask 10L at 45%, and declining Bipap until bedtime, with an O2 saturation of 96% noted.Pt has a GT with Glucerna 1.5 running at 45ml/hr as prescribed. Huertas Catheter noted which remains patent and draining yellow urine to gravity. L FA 24g IV catheter noted which remains asymptomatic, patent and intact. Lab values and diagnostics reviewed. Skin alterations noted. Will continue plan of care. Will continue to monitor.
--- NOTE | 2019-07-24 19:20 | NUR ---
HAND-OFF: Report given to Tessa Gomez RN.
--- NOTE | 2019-07-24 19:59 | Cardiology Progress Note ---
Assessment/Plan Assessment/Plan hypertension, hypothyroidism, peripheral neuropathy, lumbar degenerative joint disease, radiculopathy diabetes mellitus COPD multifocal atrial tachycardia hhn oxygen cpap abx ekg echo noted tds dvt ppx pulm toilette Subjective Cardiovascular: Denies: chest pain Respiratory: Reports: cough, shortness of breath - but better she says Gastrointestinal/Abdominal: Denies: abdominal pain Genitourinary: Denies: burning Objective Last 24 Hour Vital Signs Date Time Temp Pulse Resp B/P (MAP) Pulse Ox O2 Delivery O2 Flow Rate FiO2 07/24/19 19:14 91 Venturi Mask 10.0 45 07/24/19 19:11 93 17 97 Venturi Mask 10.0 45 91 18 90 07/24/19 17:00 Venturi Mask 07/24/19 17:00 98.2 103 23 122/66 (84) 91 07/24/19 16:00 98.5 98 22 122/57 (78) 93 07/24/19 15:51 91 15 92 Facial 45 93 16 94 Bi-Pap 45 07/24/19 15:35 112 07/24/19 13:30 75 18 94 Facial 45 07/24/19 12:39 75 131/62 07/24/19 12:00 98.7 75 19 131/62 (85) 96 07/24/19 11:58 94 07/24/19 11:25 74 19 92 Facial 45 07/24/19 10:58 96 20 98 Venturi Mask 10.0 45 94 20 99 07/24/19 10:22 101 18 97 Venturi Mask 10.0 45 99 20 91 07/24/19 09:53 98.6 07/24/19 09:00 Simple Mask 5.0 07/24/19 08:55 89 123/58 07/24/19 08:00 98.6 89 19 123/58 (79) 96 07/24/19 07:55 91 Venturi Mask 10.0 45 07/24/19 07:55 101 20 98 Venturi Mask 10.0 45 98 20 91 07/24/19 07:55 101 20 98 Venturi Mask 10.0 45 98 20 91 07/24/19 07:36 90 07/24/19 04:08 98.6 116 22 125/66 (85) 93 07/24/19 04:00 98 07/24/19 02:36 79 20 97 Venturi Mask 10.0 45 07/24/19 02:26 78 20 95 Venturi Mask 10.0 45 07/24/19 00:00 99 07/24/19 00:00 98.2 116 30 113/57 (75) 92 07/23/19 23:45 85 20 98 Venturi Mask 10.0 45 07/23/19 23:44 85 20 98 Venturi Mask 10.0 45 07/23/19 23:30 82 20 95 Venturi Mask 10.0 45 07/23/19 23:29 82 20 95 Venturi Mask 10.0 45 07/23/19 22:45 75 138/83 07/23/19 21:46 75 20 98 Venturi Mask 10.0 45 07/23/19 21:33 69 20 94 Venturi Mask 10.0 45 07/23/19 21:00 Simple Mask 5.0 07/23/19 20:00 91 07/23/19 20:00 97.7 90 28 138/83 (101) 92 General Appearance: no apparent distress, obese, patient on isolation Neck: no JVD Cardiovascular: normal rate Respiratory/Chest: decreased breath sounds - left side Abdomen: normal bowel sounds, non tender, soft Extremities: moderate edema Intake and Output 07/23/19 07/24/19 19:00 07:00 Intake Total 860 ml 600 ml Output Total 3175 ml 1800 ml Balance -2315 ml -1200 ml Intake Oral 860 ml Other 600 ml Output Urine Total 3175 ml 1800 ml Laboratory Tests Test 07/24/19 06:20 07/24/19 10:48 07/24/19 13:16 White Blood Count 10.4 K/UL (4.8-10.8) Red Blood Count 4.21 M/UL (4.20-5.40) Hemoglobin 12.7 G/DL (12.0-16.0) Hematocrit 37.6 % (37.0-47.0) Mean Corpuscular Volume 89 FL (80-99) Mean Corpuscular Hemoglobin 30.1 PG (27.0-31.0) Mean Corpuscular Hemoglobin Concent 33.7 G/DL (32.0-36.0) Red Cell Distribution Width 13.3 % (11.6-14.8) Platelet Count 282 K/UL (150-450) Mean Platelet Volume 5.3 FL (6.5-10.1) L Neutrophils (%) (Auto) 74.1 % (45.0-75.0) Lymphocytes (%) (Auto) 17.8 % (20.0-45.0) L Monocytes (%) (Auto) 5.6 % (1.0-10.0) Eosinophils (%) (Auto) 1.6 % (0.0-3.0) Basophils (%) (Auto) 0.9 % (0.0-2.0) Sodium Level 138 MMOL/L (136-145) Potassium Level 3.3 MMOL/L (3.5-5.1) L Chloride Level 97 MMOL/L (98-107) L Carbon Dioxide Level 40 MMOL/L (21-32) H Blood Urea Nitrogen 6 mg/dL (7-18) L Creatinine 0.6 MG/DL (0.55-1.30) Estimat Glomerular Filtration Rate mL/min (>60) Glucose Level 142 MG/DL (74-106) H Calcium Level 9.1 MG/DL (8.5-10.1) Magnesium Level 1.8 MG/DL (1.8-2.4) Arterial Blood pH 7.307 (7.350-7.450) 7.310 (7.350-7.450) Arterial Blood Partial Pressure CO2 84.3 mmHg (35.0-45.0) *H 75.9 mmHg (35.0-45.0) *H Arterial Blood Partial Pressure O2 71.7 mmHg (75.0-100.0) L 67.1 mmHg (75.0-100.0) L Arterial Blood HCO3 41.2 mmol/L (22.0-26.0) *H 37.4 mmol/L (22.0-26.0) H Arterial Blood Oxygen Saturation 94.2 % (95-100) L 93.1 % (95-100) L Arterial Blood Base Excess 11.3 (-2-2) *H 8.3 (-2-2) H Nathan Test Positive Positive Josesito Paulino MD Jul 24, 2019 19:59
[2019-07-24] MEDS: Sennosides 8.6mg tab ORAL SCH (20:32)
--- NOTE | 2019-07-24 21:00 | NUR ---
NURSE NOTES: Cardizem held, BP out of parameters for safe administration. Will continue to monitor.
--- NOTE | 2019-07-24 21:15 | NUR ---
NURSE NOTES: Pt provided with evening bath, oral care and linen change. Pt tolerated care well but remains dependent. Pt continues resting in bed; bed remains in lowest position with safety wheels engaged, side rails up x3, call light within reach and bed alarm activated.
--- NOTE | 2019-07-24 22:00 | NUR ---
NURSE NOTES: Pt provided with evening snack compliant with diet order. Pt educated on insulin and refusal of insulin despite BG being elevated. Pt educated on evening medications, pain medications, side effects and s/sx to report. Discussed O2 therapy and end tidal monitoring with BiPap use. Called RT to institute end tidal CO2; RT present at bedside. Pt repositioned and bilateral heels and arms elevated. Pt discussion about wound care and repositioning. Pt declines wound care. Pt provided with assistance with ROM exercises. Pt tolerated care well but remains dependent. Pt continues resting in bed; bed remains in lowest position with safety wheels engaged, side rails up x3, call light within reach and bed alarm activated.
--- NOTE | 2019-07-24 22:05 | NUR ---
NURSE NOTES: Pt complains of pain 9/10 lower back pain which is sharp in nature. Pt requests pain medications. VS obtained as follows: RR24 O2 sat 92% BP 121/78 HR 112. [place] given as ordered. Will continue to monitor patient. Will reassess. Pt continues resting in bed; bed remains in lowest position with safety wheels engaged, side rails up x3, call light within reach and bed alarm activated.
[2019-07-24] MEDS: Zolpidem 5mg tab ORAL PRN (23:34)
--- NOTE | 2019-07-24 23:34 | NUR ---
NURSE NOTES: Pt complains of insomnia. VS remain stable. Pt provided with pillow support, repositioning, warm drink and ROM exercises. Pt provided with Ambien as ordered per pt request. Pt continues resting in bed; bed remains in lowest position with safety wheels engaged, side rails up x3, call light within reach and bed alarm activated. Will continue to monitor.
[2019-07-25] VITALS: BP 109/66
[2019-07-25] MEDS: Levalbuterol Inh UD 1.25mg/0.5ml HHN SCH ×6 (03:16→23:19)
[2019-07-25] MEDS: HYDROcodone/Acetamin 7.5/325 tab ORAL PRN (03:19)
--- NOTE | 2019-07-25 03:25 | NUR ---
NURSE NOTES: Pt complains of pain 9/10 lower back pain which is sharp in nature. Pt requests pain medications. VS obtained as follows: RR24 O2 sat 94% BP 136/84 HR 92. [place] given as ordered. Will continue to monitor patient. Will reassess. Pt continues resting in bed; bed remains in lowest position with safety wheels engaged, side rails up x3, call light within reach and bed alarm activated.
[2019-07-25 04:00] VITALS: BP 136/84
[2019-07-25 04:35] LABS: BASOPHILS % (AUTO) 0.9 % (0.0-2.0); EOSINOPHILS % (AUTO) 0.2 % (0.0-3.0); HEMATOCRIT 37.5 % (37.0-47.0); HEMOGLOBIN 12.6 G/DL (12.0-16.0); LYMPHOCYTES % (AUTO) 13.9 % (20.0-45.0); MEAN CORPUSCULAR VOLUME 88 FL (80-99); MONOCYTES % (AUTO) 5.2 % (1.0-10.0); NEUTROPHILS % (AUTO) 79.8 % (45.0-75.0); PLATELET COUNT 288 K/UL (150-450); RED BLOOD COUNT 4.27 M/UL (4.20-5.40); RED CELL DISTRIBUTION WIDTH 13.1 % (11.6-14.8); WHITE BLOOD COUNT 11.3 K/UL (4.8-10.8)
[2019-07-25 04:43] LABS: ANION GAP 2 mmol/L (5-15); BLOOD UREA NITROGEN 8 mg/dL (7-18); CALCIUM 9.5 MG/DL (8.5-10.1); CARBON DIOXIDE 38 MMOL/L (21-32); CHLORIDE 100 MMOL/L (98-107); CREATININE 0.5 MG/DL (0.55-1.30); POTASSIUM 3.9 MMOL/L (3.5-5.1); SODIUM 140 MMOL/L (136-145)
[2019-07-25] MEDS: NovoLOG Insulin Flexpen SUBQ SCH ×4 (05:35→21:00)
--- NOTE | 2019-07-25 07:25 | NUR ---
HAND-OFF: Report given to JAMEE Dubois. Pt remains stable at this time.
--- NOTE | 2019-07-25 07:30 | NUR ---
NURSE NOTES: Received bedside report from Maria Fernanda Louise RN. Pt. in bed, sleeping but arousable. On Bipap at present 29/01, Fi O2 45%. No grimacing noted. IV at left FA #24g. in placed SL. Bed in low position, locked. Call light within reach. Will cont. to monitor.
[2019-07-25 08:00] VITALS: BP 134/66
--- NOTE | 2019-07-25 09:04 | General Progress Note ---
Assessment/Plan Assessment/Plan: (1) Morbid obesity (2) Lumbago (3) Peripheral neuropathy (4) COPD (5) CHF Patient will be continued on [place] D/w Dr. Hicks and he concurred. Subjective Date patient seen: Jul 26, 2019 Time patient seen: 08:45 - am Allergies: Coded Allergies: HALOPERIDOL (Verified Allergy, Unknown, 06/16/17) Subjective Constitutional: Reports: weakness HEENT: Reports: no symptoms Cardiovascular: Reports: no symptoms Respiratory: Reports: shortness of breath Gastrointestinal/Abdominal: Reports: no symptoms Genitourinary: Reports: no symptoms Neurologic/Psychiatric: Reports: no symptoms Endocrine: Reports: no symptoms Hematologic/Lymphatic: Reports: no symptoms Subjective Patient in SDU on Bipap. Denies pain at this time which has been tolerated on the [place], using it as needed. Objective Last 24 Hour Vital Signs Date Time Temp Pulse Resp B/P (MAP) Pulse Ox O2 Delivery O2 Flow Rate FiO2 07/25/19 05:33 90 16 96 Full Face 45 07/25/19 04:09 88 14 95 Full Face 45 07/25/19 04:00 Venturi Mask 10.0 07/25/19 04:00 98.2 91 24 136/84 (101) 93 07/25/19 03:38 112 07/25/19 03:17 92 17 95 Venturi Mask 10.0 45 89 18 92 07/25/19 00:00 97.8 78 15 109/66 (80) 95 07/25/19 00:00 Venturi Mask 10.0 07/24/19 23:29 108 07/24/19 22:52 89 17 96 Facial 45 91 16 99 Bi-Pap 45 07/24/19 21:45 88 16 96 Facial 45 07/24/19 21:45 90 16 99 Bi-Pap 45 88 16 96 07/24/19 20:00 98.1 85 22 105/71 (82) 94 07/24/19 20:00 Venturi Mask 10.0 07/24/19 19:14 91 Venturi Mask 10.0 45 07/24/19 19:11 93 17 97 Venturi Mask 10.0 45 91 18 90 07/24/19 19:05 97 07/24/19 17:00 Venturi Mask 07/24/19 17:00 98.2 103 23 122/66 (84) 91 07/24/19 16:00 98.5 98 22 122/57 (78) 93 07/24/19 15:51 91 15 92 Facial 45 93 16 94 Bi-Pap 45 07/24/19 15:35 112 07/24/19 13:30 75 18 94 Facial 45 07/24/19 12:39 75 131/62 07/24/19 12:00 98.7 75 19 131/62 (85) 96 07/24/19 11:58 94 07/24/19 11:25 74 19 92 Facial 45 07/24/19 10:58 96 20 98 Venturi Mask 10.0 45 94 20 99 07/24/19 10:22 101 18 97 Venturi Mask 10.0 45 99 20 91 07/24/19 09:53 98.6 Intake and Output 07/24/19 07/25/19 19:00 07:00 Intake Total 115 ml 242 ml Output Total 100 ml 1500 ml Balance 15 ml -1258 ml Intake Oral 60 ml 242 ml IV Total 55 ml Output Urine Total 100 ml 1500 ml Laboratory Tests 07/24/19 10:48: Arterial Blood pH 7.307L, Arterial Blood Partial Pressure CO2 84.3*H, Arterial Blood Partial Pressure O2 71.7L, Arterial Blood HCO3 41.2*H, Arterial Blood Oxygen Saturation 94.2L, Arterial Blood Base Excess 11.3*H, Nathan Test Positive 07/24/19 13:16: Arterial Blood pH 7.310L, Arterial Blood Partial Pressure CO2 75.9*H, Arterial Blood Partial Pressure O2 67.1L, Arterial Blood HCO3 37.4H, Arterial Blood Oxygen Saturation 93.1L, Arterial Blood Base Excess 8.3H, Nathan Test Positive 07/25/19 03:25: White Blood Count 11.3H, Red Blood Count 4.27, Hemoglobin 12.6, Hematocrit 37.5 , Mean Corpuscular Volume 88, Mean Corpuscular Hemoglobin 29.5, Mean Corpuscular Hemoglobin Concent 33.6, Red Cell Distribution Width 13.1, Platelet Count 288, Mean Platelet Volume 5.6L, Neutrophils (%) (Auto) 79.8H, Lymphocytes (%) (Auto) 13.9L, Monocytes (%) (Auto) 5.2, Eosinophils (%) (Auto) 0.2, Basophils (%) (Auto) 0.9, Sodium Level 140, Potassium Level 3.9, Chloride Level 100, Carbon Dioxide Level 38H, Anion Gap 2L, Blood Urea Nitrogen 8, Creatinine 0.5L, Estimat Glomerular Filtration Rate , Glucose Level 150H, Calcium Level 9.5 Height (Feet): 5 Height (Inches): 5.00 Weight (Pounds): 398 Respiratory/Chest: decreased breath sounds Objective General Appearance: no apparent distress, alert EENT: PERRL/EOMI, normal ENT inspection Neck: non-tender, normal alignment Cardiovascular: normal rate, regular rhythm Respiratory/Chest: decreased breath sounds Abdomen: non tender, soft Edema: mild edema Neurologic: alert, oriented x 3 Skin: warm/dry David Odom Jul 25, 2019 09:04
[2019-07-25] MEDS: Docusate 100mg cap ORAL SCH ×2 (09:30→18:00)
[2019-07-25] MEDS: Sertraline 50mg tab ORAL SCH (09:31)
[2019-07-25] MEDS: dilTIAZem HCl 60mg tab ORAL SCH ×4 (09:31→20:47)
[2019-07-25] MEDS: Memantine 5 MG TAB ORAL SCH ×2 (09:31→18:00)
[2019-07-25] MEDS: Aspirin Baby 81mg ORAL SCH (09:31)
[2019-07-25] MEDS: Enoxaparin 40mg Inj SUBQ SCH (09:33)
[2019-07-25] MEDS: Budesonide HHN 0.25mg/2ml ud HHN SCH ×2 (10:08→21:45)
--- NOTE | 2019-07-25 10:39 | Pulmonology Progress Note ---
Assessment/Plan Problems: (1) Collapse of left lung (2) COPD (chronic obstructive pulmonary disease) (3) Peripheral edema (4) MELVIN (obstructive sleep apnea) (5) Schizophrenia (6) Morbid obesity (7) HTN (hypertension) (8) Hypothyroidism Assessment/Plan abg reviewed, slightly better, needs to stay in [facility] on laxis, check BNP, watch bun/creatinine respiratory treatment continue supplemental oxygen symptomatic treatment titrate fio2 to sat of 92% Subjective ROS Limited/Unobtainable: No Interval Events: awake,comfortable, Allergies: Coded Allergies: HALOPERIDOL (Verified Allergy, Unknown, 06/16/17) Objective Last 24 Hour Vital Signs Date Time Temp Pulse Resp B/P (MAP) Pulse Ox O2 Delivery O2 Flow Rate FiO2 07/25/19 09:31 101 134/66 07/25/19 08:00 97.7 101 18 134/66 (88) 96 07/25/19 05:33 90 16 96 Full Face 45 07/25/19 04:09 88 14 95 Full Face 45 07/25/19 04:00 Venturi Mask 10.0 07/25/19 04:00 98.2 91 24 136/84 (101) 93 07/25/19 03:38 112 07/25/19 03:17 92 17 95 Venturi Mask 10.0 45 89 18 92 07/25/19 00:00 97.8 78 15 109/66 (80) 95 07/25/19 00:00 Venturi Mask 10.0 07/24/19 23:29 108 07/24/19 22:52 89 17 96 Facial 45 91 16 99 Bi-Pap 45 07/24/19 21:45 88 16 96 Facial 45 07/24/19 21:45 90 16 99 Bi-Pap 45 88 16 96 07/24/19 20:00 98.1 85 22 105/71 (82) 94 07/24/19 20:00 Venturi Mask 10.0 07/24/19 19:14 91 Venturi Mask 10.0 45 07/24/19 19:11 93 17 97 Venturi Mask 10.0 45 91 18 90 07/24/19 19:05 97 07/24/19 17:00 Venturi Mask 07/24/19 17:00 98.2 103 23 122/66 (84) 91 07/24/19 16:00 98.5 98 22 122/57 (78) 93 07/24/19 15:51 91 15 92 Facial 45 93 16 94 Bi-Pap 45 07/24/19 15:35 112 07/24/19 13:30 75 18 94 Facial 45 07/24/19 12:39 75 131/62 07/24/19 12:00 98.7 75 19 131/62 (85) 96 07/24/19 11:58 94 07/24/19 11:25 74 19 92 Facial 45 07/24/19 10:58 96 20 98 Venturi Mask 10.0 45 94 20 99 Intake and Output 07/24/19 07/25/19 19:00 07:00 Intake Total 115 ml 242 ml Output Total 100 ml 1500 ml Balance 15 ml -1258 ml Intake Oral 60 ml 242 ml IV Total 55 ml Output Urine Total 100 ml 1500 ml General Appearance: no acute distress HEENT: normocephalic Respiratory/Chest: chest wall non-tender, accessory muscle use, rhonchi Breasts: no discharge Cardiovascular: normal peripheral pulses, normal rate Abdomen: normal bowel sounds, soft, non tender Genitourinary: normal external genitalia Extremities: no cyanosis Neurologic/Psychiatric: no motor/sensory deficits Lymphatic: no neck adenopathy Laboratory Tests 07/24/19 10:48: Arterial Blood pH 7.307L, Arterial Blood Partial Pressure CO2 84.3*H, Arterial Blood Partial Pressure O2 71.7L, Arterial Blood HCO3 41.2*H, Arterial Blood Oxygen Saturation 94.2L, Arterial Blood Base Excess 11.3*H, Nathan Test Positive 07/24/19 13:16: Arterial Blood pH 7.310L, Arterial Blood Partial Pressure CO2 75.9*H, Arterial Blood Partial Pressure O2 67.1L, Arterial Blood HCO3 37.4H, Arterial Blood Oxygen Saturation 93.1L, Arterial Blood Base Excess 8.3H, Nathan Test Positive 07/25/19 03:25: White Blood Count 11.3H, Red Blood Count 4.27, Hemoglobin 12.6, Hematocrit 37.5 , Mean Corpuscular Volume 88, Mean Corpuscular Hemoglobin 29.5, Mean Corpuscular Hemoglobin Concent 33.6, Red Cell Distribution Width 13.1, Platelet Count 288, Mean Platelet Volume 5.6L, Neutrophils (%) (Auto) 79.8H, Lymphocytes (%) (Auto) 13.9L, Monocytes (%) (Auto) 5.2, Eosinophils (%) (Auto) 0.2, Basophils (%) (Auto) 0.9, Sodium Level 140, Potassium Level 3.9, Chloride Level 100, Carbon Dioxide Level 38H, Anion Gap 2L, Blood Urea Nitrogen 8, Creatinine 0.5L, Estimat Glomerular Filtration Rate , Glucose Level 150H, Calcium Level 9.5 Current Medications Medications (Trade) Dose Ordered Sig/Marleni Route PRN Reason Start Time Stop Time Status Last Admin Dose Admin Acetaminophen (Tylenol) 650 mg Q6H PRN ORAL Mild Pain/Temp > 100.5 07/24/19 17:00 08/19/19 16:59 Acetaminophen/ Hydrocodone Bitart ([place] 5/325) 1 tab Q6H PRN ORAL Moderate Pain (Pain Scale 4-6) 07/24/19 17:00 07/27/19 16:59 Acetaminophen/ Hydrocodone Bitart ([place] 7.5/325) 1 tab Q4H PRN ORAL Severe Pain (Pain Scale 7-10) 07/24/19 17:00 07/27/19 16:59 07/25/19 03:19 Acetazolamide (Diamox) 250 mg TWICE A DAY ORAL 07/24/19 18:00 08/22/19 17:59 07/25/19 09:31 Acetylcysteine (Mucomyst) 400 mg Q8HRT INH 07/24/19 23:00 08/15/19 07:29 07/25/19 07:20 Aspirin (ASA) 81 mg DAILY ORAL 07/25/19 09:00 08/15/19 08:59 07/25/19 09:31 Budesonide (Pulmicort) 0.5 mg Q12HRT HHN 07/24/19 22:00 08/15/19 09:59 07/25/19 10:08 Ceftriaxone Sodium 1 gm/ Dextrose 55 ml @ 110 mls/hr Q24H IVPB 07/25/19 14:00 07/28/19 13:59 Dextrose (Dextrose 50%) 25 ml Q30M PRN IV Hypoglycemia 07/24/19 17:00 08/15/19 07:29 Dextrose (Dextrose 50%) 50 ml Q30M PRN IV Hypoglycemia 07/24/19 17:00 08/15/19 07:29 Diltiazem HCl (Cardizem) 60 mg QID ORAL 07/24/19 18:00 08/20/19 12:59 07/25/19 09:31 Docusate Sodium (Colace) 100 mg TWICE A DAY ORAL 07/24/19 18:00 08/15/19 08:59 07/25/19 09:30 Enoxaparin Sodium (Lovenox) 40 mg DAILY SUBQ 07/25/19 09:00 08/18/19 08:59 07/25/19 09:33 Gabapentin (Neurontin) 300 mg THREE TIMES A DAY ORAL 07/24/19 18:00 08/15/19 08:59 07/25/19 09:32 Guaifenesin (Robitussin) 200 mg Q4H PRN ORAL FOR COUGH 07/24/19 17:00 08/19/19 16:59 Insulin Aspart (NovoLOG) BEFORE MEALS AND HS SUBQ 07/24/19 21:00 08/15/19 11:29 Levalbuterol HCl (Xopenex) 1.25 mg Q4HRT HHN 07/24/19 19:00 07/26/19 13:59 07/25/19 10:10 Lorazepam (Ativan) 0.5 mg Q6H PRN ORAL For Anxiety 07/24/19 17:00 07/27/19 16:59 Memantine (Namenda) 5 mg BID ORAL 07/24/19 18:00 08/15/19 08:59 07/25/19 09:31 Mirtazapine (Remeron) 15 mg BEDTIME ORAL 07/24/19 21:00 08/15/19 20:59 07/24/19 20:32 Naloxone HCl (Narcan) 0.1 mg PRN PRN IV Sedation scale 3 or 4 07/24/19 17:00 08/23/19 16:59 Ondansetron HCl (Zofran) 4 mg Q4H PRN IVP Nausea & Vomiting 07/24/19 17:00 08/21/19 16:59 07/24/19 17:20 Pantoprazole (Protonix) 40 mg BEFORE BREAKFAST ORAL 07/25/19 06:30 08/16/19 06:29 Polyethylene Glycol (Miralax) 17 gm DAILYPRN PRN ORAL Constipation 07/24/19 17:00 08/23/19 16:59 Promethazine HCl/ Codeine (Phenergan with Codeine) 5 ml Q4H PRN ORAL For Cough 07/24/19 17:00 08/19/19 16:59 Sennosides (Senokot) 8.6 mg QHS ORAL 07/24/19 21:00 08/15/19 20:59 07/24/19 20:32 Sertraline HCl (Zoloft) 50 mg DAILY ORAL 07/25/19 09:00 08/15/19 08:59 07/25/19 09:31 Sodium Phosphate (Fleet's Sodium Phosl Enema) 133 ml DAILYPRN PRN RECTAL Constipation 07/24/19 17:00 08/23/19 16:59 Zolpidem Tartrate (Ambien) 5 mg BEDTIME PRN ORAL Insomnia 07/24/19 21:00 07/27/19 16:16 07/24/19 23:34 Fartun Gan MD Jul 25, 2019 10:39
[2019-07-25 12:00] VITALS: BP 137/65
--- NOTE | 2019-07-25 12:18 | Infectious Diseases Prog Note ---
Assessment/Plan Assessment/Plan Assessment: Sepsis, Sp PNA CHF L lung collapse -07/23 CXR: Improved aeration left lung with persistent moderate diffuse alveolar infiltrate suspicious for pneumonia and/or atelectasis. There is unchanged mild superimposed pulmonary edema with improving mild left pleural effusion -07/21 US Chest:No pleural effusion -07/20 CXR: Complete opacification of left hemithorax at least partly due to atelectasis. Some volume loss noted.Congestive heart failure. -07/18 CXR: Suspected left perihilar infiltrate. Correlate clinically. Slightly worsening CH -07/15 CXR: Limited hypoventilatory exam. Prominence of the central bronchovascular structures may be in part due to low lung volumes. -influenza sc neg, sp cx normal resp frank Leukocytosis, mild, recurrent Afebrile REcent Abdominal wall cellulitis (L side) and L mastitis; improving CHF exacerbation Intractable Back pain MELVIN hx of aspiration PNA morbid obesity CAD/WV CHF HTN hypothryoidism hx of abdominal wall cellulitis MDD w/ psychotic features peripheral neuropathy s/p cholecystectomy s/p hysterectomy s/p appendectomy tobacco abuse HLD Dm2 COPD [place] resident VRE and MRSA colonized Plan: -Continue Ceftriaxone # 8/10 for PNA and cellulitis -07/19 SP IV Vancomycin #2 -f/u cx -Monitor CBC/CMP, temperatares -aspiration precautions -Pulm f/u Thank you for consulting [facility]. Will continue to follow along with you. Discussed with RN. Subjective Allergies: Coded Allergies: HALOPERIDOL (Verified Allergy, Unknown, 06/16/17) Subjective afebrile mild leukocytosis on bipap Objective Vital Signs Last 24 Hour Vital Signs Date Time Temp Pulse Resp B/P (MAP) Pulse Ox O2 Delivery O2 Flow Rate FiO2 07/25/19 10:18 85 20 97 Bi-Pap 45 84 20 94 07/25/19 09:31 101 134/66 07/25/19 08:00 97.7 101 18 134/66 (88) 96 07/25/19 07:30 85 19 97 Bi-Pap 45 81 19 96 07/25/19 07:06 81 19 96 Full Face 45 85 19 99 Bi-Pap 07/25/19 05:33 90 16 96 Full Face 45 07/25/19 04:09 88 14 95 Full Face 45 07/25/19 04:00 Venturi Mask 10.0 07/25/19 04:00 98.2 91 24 136/84 (101) 93 07/25/19 03:38 112 07/25/19 03:17 92 17 95 Venturi Mask 10.0 45 89 18 92 07/25/19 00:00 97.8 78 15 109/66 (80) 95 07/25/19 00:00 Venturi Mask 10.0 07/24/19 23:29 108 07/24/19 22:52 89 17 96 Facial 45 91 16 99 Bi-Pap 45 07/24/19 21:45 88 16 96 Facial 45 07/24/19 21:45 90 16 99 Bi-Pap 45 88 16 96 07/24/19 20:00 98.1 85 22 105/71 (82) 94 07/24/19 20:00 Venturi Mask 10.0 07/24/19 19:14 91 Venturi Mask 10.0 45 07/24/19 19:11 93 17 97 Venturi Mask 10.0 45 91 18 90 07/24/19 19:05 97 07/24/19 17:00 Venturi Mask 07/24/19 17:00 98.2 103 23 122/66 (84) 91 07/24/19 16:00 98.5 98 22 122/57 (78) 93 07/24/19 15:51 91 15 92 Facial 45 93 16 94 Bi-Pap 45 07/24/19 15:35 112 07/24/19 13:30 75 18 94 Facial 45 07/24/19 12:39 75 131/62 Height (Feet): 5 Height (Inches): 5.00 Weight (Pounds): 398 Objective GENERAL: on bipap.. CARDIOVASCULAR: No murmur. LUNGS: Poor air exchange. ABDOMEN: B non tender, soft EXTREMITIES: No cyanosis or clubbing. 1+ edema. NEUROLOGIC: The patient is moving all extremities, slightly weak SKIN: erythema on L breast and abd wall improving Laboratory Tests Test 07/24/19 13:16 07/25/19 03:25 Arterial Blood pH 7.310 (7.350-7.450) Arterial Blood Partial Pressure CO2 75.9 mmHg (35.0-45.0) *H Arterial Blood Partial Pressure O2 67.1 mmHg (75.0-100.0) L Arterial Blood HCO3 37.4 mmol/L (22.0-26.0) H Arterial Blood Oxygen Saturation 93.1 % (95-100) L Arterial Blood Base Excess 8.3 (-2-2) H Nathan Test Positive White Blood Count 11.3 K/UL (4.8-10.8) H Red Blood Count 4.27 M/UL (4.20-5.40) Hemoglobin 12.6 G/DL (12.0-16.0) Hematocrit 37.5 % (37.0-47.0) Mean Corpuscular Volume 88 FL (80-99) Mean Corpuscular Hemoglobin 29.5 PG (27.0-31.0) Mean Corpuscular Hemoglobin Concent 33.6 G/DL (32.0-36.0) Red Cell Distribution Width 13.1 % (11.6-14.8) Platelet Count 288 K/UL (150-450) Mean Platelet Volume 5.6 FL (6.5-10.1) L Neutrophils (%) (Auto) 79.8 % (45.0-75.0) H Lymphocytes (%) (Auto) 13.9 % (20.0-45.0) L Monocytes (%) (Auto) 5.2 % (1.0-10.0) Eosinophils (%) (Auto) 0.2 % (0.0-3.0) Basophils (%) (Auto) 0.9 % (0.0-2.0) Sodium Level 140 MMOL/L (136-145) Potassium Level 3.9 MMOL/L (3.5-5.1) Chloride Level 100 MMOL/L (98-107) Carbon Dioxide Level 38 MMOL/L (21-32) H Anion Gap 2 mmol/L (5-15) L Blood Urea Nitrogen 8 mg/dL (7-18) Creatinine 0.5 MG/DL (0.55-1.30) L Estimat Glomerular Filtration Rate mL/min (>60) Glucose Level 150 MG/DL (74-106) H Calcium Level 9.5 MG/DL (8.5-10.1) Current Medications Medications (Trade) Dose Ordered Sig/Marleni Route PRN Reason Start Time Stop Time Status Last Admin Dose Admin Acetaminophen (Tylenol) 650 mg Q6H PRN ORAL Mild Pain/Temp > 100.5 07/24/19 17:00 08/19/19 16:59 Acetaminophen/ Hydrocodone Bitart ([place] 5/325) 1 tab Q6H PRN ORAL Moderate Pain (Pain Scale 4-6) 07/24/19 17:00 07/27/19 16:59 Acetaminophen/ Hydrocodone Bitart ([place] 7.5/325) 1 tab Q4H PRN ORAL Severe Pain (Pain Scale 7-10) 07/24/19 17:00 07/27/19 16:59 07/25/19 03:19 Acetazolamide (Diamox) 250 mg TWICE A DAY ORAL 07/24/19 18:00 08/22/19 17:59 07/25/19 09:31 Acetylcysteine (Mucomyst) 400 mg Q8HRT INH 07/24/19 23:00 08/15/19 07:29 07/25/19 07:20 Aspirin (ASA) 81 mg DAILY ORAL 07/25/19 09:00 08/15/19 08:59 07/25/19 09:31 Budesonide (Pulmicort) 0.5 mg Q12HRT HHN 07/24/19 22:00 08/15/19 09:59 07/25/19 10:08 Ceftriaxone Sodium 1 gm/ Dextrose 55 ml @ 110 mls/hr Q24H IVPB 07/25/19 14:00 07/28/19 13:59 Dextrose (Dextrose 50%) 25 ml Q30M PRN IV Hypoglycemia 07/24/19 17:00 08/15/19 07:29 Dextrose (Dextrose 50%) 50 ml Q30M PRN IV Hypoglycemia 07/24/19 17:00 08/15/19 07:29 Diltiazem HCl (Cardizem) 60 mg QID ORAL 07/24/19 18:00 08/20/19 12:59 07/25/19 09:31 Docusate Sodium (Colace) 100 mg TWICE A DAY ORAL 07/24/19 18:00 08/15/19 08:59 07/25/19 09:30 Enoxaparin Sodium (Lovenox) 40 mg DAILY SUBQ 07/25/19 09:00 08/18/19 08:59 07/25/19 09:33 Gabapentin (Neurontin) 300 mg THREE TIMES A DAY ORAL 07/24/19 18:00 08/15/19 08:59 07/25/19 09:32 Guaifenesin (Robitussin) 200 mg Q4H PRN ORAL FOR COUGH 07/24/19 17:00 08/19/19 16:59 Insulin Aspart (NovoLOG) BEFORE MEALS AND HS SUBQ 07/24/19 21:00 08/15/19 11:29 Levalbuterol HCl (Xopenex) 1.25 mg Q4HRT HHN 07/24/19 19:00 07/26/19 13:59 07/25/19 10:10 Lorazepam (Ativan) 0.5 mg Q6H PRN ORAL For Anxiety 07/24/19 17:00 07/27/19 16:59 Memantine (Namenda) 5 mg BID ORAL 07/24/19 18:00 08/15/19 08:59 07/25/19 09:31 Mirtazapine (Remeron) 15 mg BEDTIME ORAL 07/24/19 21:00 08/15/19 20:59 07/24/19 20:32 Naloxone HCl (Narcan) 0.1 mg PRN PRN IV Sedation scale 3 or 4 07/24/19 17:00 08/23/19 16:59 Ondansetron HCl (Zofran) 4 mg Q4H PRN IVP Nausea & Vomiting 07/24/19 17:00 08/21/19 16:59 07/24/19 17:20 Pantoprazole (Protonix) 40 mg BEFORE BREAKFAST ORAL 07/25/19 06:30 08/16/19 06:29 Polyethylene Glycol (Miralax) 17 gm DAILYPRN PRN ORAL Constipation 07/24/19 17:00 08/23/19 16:59 Promethazine HCl/ Codeine (Phenergan with Codeine) 5 ml Q4H PRN ORAL For Cough 07/24/19 17:00 08/19/19 16:59 Sennosides (Senokot) 8.6 mg QHS ORAL 07/24/19 21:00 08/15/19 20:59 07/24/19 20:32 Sertraline HCl (Zoloft) 50 mg DAILY ORAL 07/25/19 09:00 08/15/19 08:59 07/25/19 09:31 Sodium Phosphate (Fleet's Sodium Phosl Enema) 133 ml DAILYPRN PRN RECTAL Constipation 07/24/19 17:00 08/23/19 16:59 Zolpidem Tartrate (Ambien) 5 mg BEDTIME PRN ORAL Insomnia 07/24/19 21:00 07/27/19 16:16 07/24/19 23:34 Ange Grant M.D. Jul 25, 2019 12:18
--- NOTE | 2019-07-25 13:00 | NUR ---
NURSE NOTES: Pt. keeps on yelling "help" attended to pt. RN with pt. but still continue to asked for and asking for morphine or norco. Explained to pt. her respiration is not stable. Became quite and went to sleep.
--- NOTE | 2019-07-25 14:01 | General Progress Note ---
Assessment/Plan Problem List: (1) HTN (hypertension) ICD Codes: I10 - Essential (primary) hypertension SNOMED: 10424341 (2) COPD (chronic obstructive pulmonary disease) ICD Codes: J44.9 - Chronic obstructive pulmonary disease, unspecified SNOMED: 60280172 (3) Hypothyroidism ICD Codes: E03.9 - Hypothyroidism, unspecified SNOMED: 36966086 (4) Peripheral edema ICD Codes: R60.9 - Edema, unspecified SNOMED: 857727036 Status: unchanged Assessment/Plan: pt diet o2 pulm tx bp bs control cbc bmp in am dc plan vs scan Subjective Constitutional: Reports: weakness Allergies: Coded Allergies: HALOPERIDOL (Verified Allergy, Unknown, 06/16/17) All Systems: reviewed and negative except above Subjective pulm tx c/o lbp Objective Last 24 Hour Vital Signs Date Time Temp Pulse Resp B/P (MAP) Pulse Ox O2 Delivery O2 Flow Rate FiO2 07/25/19 10:20 86 20 96 Bi-Pap 45 83 20 94 07/25/19 10:18 85 20 97 Bi-Pap 45 84 20 94 07/25/19 09:31 101 134/66 07/25/19 09:20 92 Venturi Mask 12.0 50 07/25/19 08:00 Venturi Mask 10.0 07/25/19 08:00 97.7 101 18 134/66 (88) 96 07/25/19 07:50 105 07/25/19 07:30 85 19 97 Bi-Pap 45 81 19 96 07/25/19 07:06 81 19 96 Full Face 45 85 19 99 Bi-Pap 07/25/19 05:33 90 16 96 Full Face 45 07/25/19 04:09 88 14 95 Full Face 45 07/25/19 04:00 Venturi Mask 10.0 07/25/19 04:00 98.2 91 24 136/84 (101) 93 07/25/19 03:38 112 07/25/19 03:17 92 17 95 Venturi Mask 10.0 45 89 18 92 07/25/19 00:00 97.8 78 15 109/66 (80) 95 07/25/19 00:00 Venturi Mask 10.0 07/24/19 23:29 108 07/24/19 22:52 89 17 96 Facial 45 91 16 99 Bi-Pap 45 07/24/19 21:45 88 16 96 Facial 45 07/24/19 21:45 90 16 99 Bi-Pap 45 88 16 96 07/24/19 20:00 98.1 85 22 105/71 (82) 94 07/24/19 20:00 Venturi Mask 10.0 07/24/19 19:14 91 Venturi Mask 10.0 45 07/24/19 19:11 93 17 97 Venturi Mask 10.0 45 91 18 90 07/24/19 19:05 97 07/24/19 17:00 Venturi Mask 07/24/19 17:00 98.2 103 23 122/66 (84) 91 07/24/19 16:00 98.5 98 22 122/57 (78) 93 07/24/19 15:51 91 15 92 Facial 45 93 16 94 Bi-Pap 45 07/24/19 15:35 112 Intake and Output 07/24/19 07/25/19 19:00 07:00 Intake Total 115 ml 242 ml Output Total 100 ml 1500 ml Balance 15 ml -1258 ml Intake Oral 60 ml 242 ml IV Total 55 ml Output Urine Total 100 ml 1500 ml Laboratory Tests 07/25/19 03:25: White Blood Count 11.3H, Red Blood Count 4.27, Hemoglobin 12.6, Hematocrit 37.5 , Mean Corpuscular Volume 88, Mean Corpuscular Hemoglobin 29.5, Mean Corpuscular Hemoglobin Concent 33.6, Red Cell Distribution Width 13.1, Platelet Count 288, Mean Platelet Volume 5.6L, Neutrophils (%) (Auto) 79.8H, Lymphocytes (%) (Auto) 13.9L, Monocytes (%) (Auto) 5.2, Eosinophils (%) (Auto) 0.2, Basophils (%) (Auto) 0.9, Sodium Level 140, Potassium Level 3.9, Chloride Level 100, Carbon Dioxide Level 38H, Anion Gap 2L, Blood Urea Nitrogen 8, Creatinine 0.5L, Estimat Glomerular Filtration Rate , Glucose Level 150H, Calcium Level 9.5 Height (Feet): 5 Height (Inches): 5.00 Weight (Pounds): 398 General Appearance: lethargic EENT: normal ENT inspection Neck: normal alignment Cardiovascular: normal peripheral pulses, normal rate, regular rhythm Respiratory/Chest: chest wall non-tender, decreased breath sounds Abdomen: normal bowel sounds, non tender, soft Extremities: normal inspection Edema: 1+ Arm (L), 1+ Arm (R), 1+ Leg (L), 1+ Leg (R), 1+ Pedal (L), 1+ Pedal ( R), 1+ Generalized Edema: trace edema Neurologic: motor weakness Skin: normal pigmentation, warm/dry Bill Lane DO Jul 25, 2019 14:01
--- NOTE | 2019-07-25 14:10 | NUR ---
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 97.7 HR 105 RR 18 B/P 134/66 BIPAP 18/5 FIO2 45% WBC 11.3 CO2 38 IS: ROCEPHIN IV ASA PULMICORT HHN STEP DOWN STATUS
[2019-07-25] MEDS: cefTRIAXone 1 GM in D5W 55 ML IVPB SCH (14:33)
--- NOTE | 2019-07-25 14:43 | Nephrology Progress Note ---
Assessment/Plan Status: unchanged Assessment/Plan: 1. Metabolic alkalosis secondary to diuresis and maintenance alkalosis from hypokalemia. continue Diamox. To correct maintenance alkalosis, hypokalemia must be aggressively corrected HCO3 much improved 2. Hypokalemia, corrected hypokalemia. Keep potassium greater than 4. 3. Congestive heart failure and atrial fibrillation per Cardiology. 4. Chronic low back pain. Defer to pain management. Subjective Date patient seen: Jul 25, 2019 Time patient seen: 14:38 ROS Limited/Unobtainable: No Allergies: Coded Allergies: HALOPERIDOL (Verified Allergy, Unknown, 06/16/17) Subjective Patient transferred to [facility] Objective Last 24 Hour Vital Signs Date Time Temp Pulse Resp B/P (MAP) Pulse Ox O2 Delivery O2 Flow Rate FiO2 07/25/19 12:00 Venturi Mask 10.0 07/25/19 12:00 97.7 111 17 137/65 (89) 92 07/25/19 11:50 113 07/25/19 10:20 86 20 96 Bi-Pap 45 83 20 94 07/25/19 10:18 85 20 97 Bi-Pap 45 84 20 94 07/25/19 09:31 101 134/66 07/25/19 09:20 92 Venturi Mask 12.0 50 07/25/19 08:00 Venturi Mask 10.0 07/25/19 08:00 97.7 101 18 134/66 (88) 96 07/25/19 07:50 105 07/25/19 07:30 85 19 97 Bi-Pap 45 81 19 96 07/25/19 07:06 81 19 96 Full Face 45 85 19 99 Bi-Pap 07/25/19 05:33 90 16 96 Full Face 45 07/25/19 04:09 88 14 95 Full Face 45 07/25/19 04:00 Venturi Mask 10.0 07/25/19 04:00 98.2 91 24 136/84 (101) 93 07/25/19 03:38 112 07/25/19 03:17 92 17 95 Venturi Mask 10.0 45 89 18 92 07/25/19 00:00 97.8 78 15 109/66 (80) 95 07/25/19 00:00 Venturi Mask 10.0 07/24/19 23:29 108 07/24/19 22:52 89 17 96 Facial 45 91 16 99 Bi-Pap 45 07/24/19 21:45 88 16 96 Facial 45 07/24/19 21:45 90 16 99 Bi-Pap 45 88 16 96 07/24/19 20:00 98.1 85 22 105/71 (82) 94 07/24/19 20:00 Venturi Mask 10.0 07/24/19 19:14 91 Venturi Mask 10.0 45 07/24/19 19:11 93 17 97 Venturi Mask 10.0 45 91 18 90 07/24/19 19:05 97 07/24/19 17:00 Venturi Mask 07/24/19 17:00 98.2 103 23 122/66 (84) 91 07/24/19 16:00 98.5 98 22 122/57 (78) 93 07/24/19 15:51 91 15 92 Facial 45 93 16 94 Bi-Pap 45 07/24/19 15:35 112 Intake and Output 07/24/19 07/25/19 19:00 07:00 Intake Total 115 ml 242 ml Output Total 100 ml 1500 ml Balance 15 ml -1258 ml Intake Oral 60 ml 242 ml IV Total 55 ml Output Urine Total 100 ml 1500 ml Laboratory Tests 07/25/19 03:25: White Blood Count 11.3H, Red Blood Count 4.27, Hemoglobin 12.6, Hematocrit 37.5 , Mean Corpuscular Volume 88, Mean Corpuscular Hemoglobin 29.5, Mean Corpuscular Hemoglobin Concent 33.6, Red Cell Distribution Width 13.1, Platelet Count 288, Mean Platelet Volume 5.6L, Neutrophils (%) (Auto) 79.8H, Lymphocytes (%) (Auto) 13.9L, Monocytes (%) (Auto) 5.2, Eosinophils (%) (Auto) 0.2, Basophils (%) (Auto) 0.9, Sodium Level 140, Potassium Level 3.9, Chloride Level 100, Carbon Dioxide Level 38H, Anion Gap 2L, Blood Urea Nitrogen 8, Creatinine 0.5L, Estimat Glomerular Filtration Rate , Glucose Level 150H, Calcium Level 9.5 Height (Feet): 5 Height (Inches): 5.00 Weight (Pounds): 398 General Appearance: no apparent distress EENT: normal ENT inspection Neck: normal alignment, supple Cardiovascular: normal rate Respiratory/Chest: rhonchi - bilaterally Abdomen: non tender, soft Edema: no edema noted Arm (L), no edema noted Arm (R), no edema noted Leg (L), no edema noted Leg (R), no edema noted Pedal (L), no edema noted Pedal (R), no edema noted Generalized Ulysses Moore MD Jul 25, 2019 14:43
--- NOTE | 2019-07-25 15:45 | NUR ---
RD ASSESSMENT & RECOMMENDATIONS SEE CARE ACTIVITY FOR COMPLETE ASSESSMENT DAILY ESTIMATED NEEDS: Needs based on Obesity, pulmonary, cardiac /Adj wt 81kg 20-23 kcals/kg 8727-4004 total kcals 1-1.5 g protein/kg 81-122 g total protein 20-25 mL/kg 4578-4637 total fluid mLs NUTRITION DIAGNOSIS: 1) Morbid obesity R/T lifestyle factors? excessive energy? as evidenced by BMI >50, pt is 283% of [place] Body Weight. CURRENT DIET:FARA, CCHO MED/ mech soft ground PO DIET RECOMMENDATIONS: Cardiac/ CCHO LOW, texture per CHILD AND ADOLESCENT PSYCHOLOGIST ADDITIONAL RECOMMENDATIONS: 1) Calibrated bedscale wt for accurate CBW ABLE- pt on bariatric bed 2) Consider CHILD AND ADOLESCENT PSYCHOLOGIST eval for appropriate texture 3) Rec HgA1C for eval 4) Monitor BM regularity: last recorded BM on 2/3 - pt on Colace BID + Senokot qhs
[2019-07-25 16:00] VITALS: BP 133/78
--- NOTE | 2019-07-25 16:00 | Progress Note ---
DATE: 07/25/2019 SUBJECTIVE: This is a 73-year-old female patient with cough and back pain. She has got some confusion, some disorganized thought process, decline in cognition below baseline. MENTAL STATUS EXAMINATION: This is a 73-year-old female. Appearance is disheveled. Attitude, irritable and agitated. Insight and judgment is poor. DIAGNOSIS: Major depressive disorder, severe, recurrent with psychotic features. PLAN: I am going to continue treatment with psychotropic medications. Provide her with 20 minutes of cognitive behavioral therapy to help identify automatic negative thoughts and help her convert negative thoughts to more positive thoughts to reduce depression, anxiety, mood lability. Chart reviewed. Discussed with staff. Seen and assessed at bedside. Filipe Yen M.D. DR: MONTRELL JOB#: [id number] CC:
--- NOTE | 2019-07-25 19:30 | NUR ---
NURSE NOTES: Received report from JAMEE Dubois. Pt is awake and confused and forgetful. On Tele monitor with SR. Pt is currently on Venturi mask 10L at 45% and SaO2 92% noted. IV site intact an no sign of acute distress noted. Pt has Huertas cath and patent and drainage well. Repositioned. Placed fall precaution. Will continue to care plan.
--- NOTE | 2019-07-25 19:33 | NUR ---
HAND-OFF: Report given to Antonio MANCUSO. Pt. remain stable.
[2019-07-25 20:00] VITALS: BP 151/60
[2019-07-25] MEDS: Sennosides 8.6mg tab ORAL SCH (20:47)
--- NOTE | 2019-07-25 23:48 | Cardiology Progress Note ---
Assessment/Plan Assessment/Plan hypertension, hypothyroidism, peripheral neuropathy, lumbar degenerative joint disease, radiculopathy diabetes mellitus COPD multifocal atrial tachycardia hhn oxygen cpap abx ekg echo noted tds dvt ppx pulm toilette on diamox lasix tonite cxr form yest ntoed left efusion infiltrate still has rhonchi Subjective ROS Limited/Unobtainable: Yes Subjective sleeping on fm Objective Last 24 Hour Vital Signs Date Time Temp Pulse Resp B/P (MAP) Pulse Ox O2 Delivery O2 Flow Rate FiO2 07/25/19 23:21 95 14 81 Full Face 45 07/25/19 23:19 95 15 99 Bi-Pap 45 95 14 95 07/25/19 21:50 89 17 93 Full Face 45 07/25/19 21:45 92 20 97 Bi-Pap 45 94 20 92 07/25/19 20:47 104 151/60 07/25/19 20:00 97.6 91 17 151/60 (90) 93 07/25/19 20:00 104 07/25/19 19:52 100 20 99 Venturi Mask 12.0 50 102 20 97 07/25/19 19:52 92 Venturi Mask 12.0 50 07/25/19 18:00 108 133/78 07/25/19 16:00 97.7 108 17 133/78 (96) 93 07/25/19 16:00 Venturi Mask 10.0 07/25/19 15:34 82 20 96 Venturi Mask 12.0 50 79 20 93 07/25/19 15:28 111 07/25/19 12:00 Venturi Mask 10.0 07/25/19 12:00 97.7 111 17 137/65 (89) 92 07/25/19 11:50 113 07/25/19 10:20 86 20 96 Venturi Mask 12.0 50 83 20 94 07/25/19 10:18 85 20 97 Bi-Pap 45 84 20 94 07/25/19 09:31 101 134/66 07/25/19 09:20 92 Venturi Mask 12.0 50 07/25/19 08:00 Venturi Mask 10.0 07/25/19 08:00 97.7 101 18 134/66 (88) 96 07/25/19 07:50 105 07/25/19 07:30 85 19 97 Bi-Pap 45 81 19 96 07/25/19 07:06 81 19 96 Full Face 45 85 19 99 Bi-Pap 07/25/19 05:33 90 16 96 Full Face 45 07/25/19 04:09 88 14 95 Full Face 45 07/25/19 04:00 Venturi Mask 10.0 07/25/19 04:00 98.2 91 24 136/84 (101) 93 07/25/19 03:38 112 07/25/19 03:17 92 17 95 Venturi Mask 10.0 45 89 18 92 07/25/19 00:00 97.8 78 15 109/66 (80) 95 07/25/19 00:00 Venturi Mask 10.0 General Appearance: no apparent distress, patient on isolation Neck: supple Cardiovascular: irregularly irregular Respiratory/Chest: rhonchi - bilaterally Abdomen: normal bowel sounds, non tender, soft Extremities: moderate edema Intake and Output 07/24/19 07/25/19 19:00 07:00 Intake Total 115 ml 242 ml Output Total 100 ml 1500 ml Balance 15 ml -1258 ml Intake Oral 60 ml 242 ml IV Total 55 ml Output Urine Total 100 ml 1500 ml Laboratory Tests Test 07/25/19 03:25 07/25/19 10:13 White Blood Count 11.3 K/UL (4.8-10.8) H Red Blood Count 4.27 M/UL (4.20-5.40) Hemoglobin 12.6 G/DL (12.0-16.0) Hematocrit 37.5 % (37.0-47.0) Mean Corpuscular Volume 88 FL (80-99) Mean Corpuscular Hemoglobin 29.5 PG (27.0-31.0) Mean Corpuscular Hemoglobin Concent 33.6 G/DL (32.0-36.0) Red Cell Distribution Width 13.1 % (11.6-14.8) Platelet Count 288 K/UL (150-450) Mean Platelet Volume 5.6 FL (6.5-10.1) L Neutrophils (%) (Auto) 79.8 % (45.0-75.0) H Lymphocytes (%) (Auto) 13.9 % (20.0-45.0) L Monocytes (%) (Auto) 5.2 % (1.0-10.0) Eosinophils (%) (Auto) 0.2 % (0.0-3.0) Basophils (%) (Auto) 0.9 % (0.0-2.0) Sodium Level 140 MMOL/L (136-145) Potassium Level 3.9 MMOL/L (3.5-5.1) Chloride Level 100 MMOL/L (98-107) Carbon Dioxide Level 38 MMOL/L (21-32) H Anion Gap 2 mmol/L (5-15) L Blood Urea Nitrogen 8 mg/dL (7-18) Creatinine 0.5 MG/DL (0.55-1.30) L Estimat Glomerular Filtration Rate mL/min (>60) Glucose Level 150 MG/DL (74-106) H Calcium Level 9.5 MG/DL (8.5-10.1) Arterial Blood pH 7.340 (7.350-7.450) Arterial Blood Partial Pressure CO2 66.3 mmHg (35.0-45.0) *H Arterial Blood Partial Pressure O2 69.0 mmHg (75.0-100.0) L Arterial Blood HCO3 35.0 mmol/L (22.0-26.0) H Arterial Blood Oxygen Saturation 94.0 % (95-100) L Arterial Blood Base Excess 7.0 (-2-2) H Nathan Test Positive Josesito Paulino MD Jul 25, 2019 23:48
[2019-07-26] VITALS (9 sets, daily range): BP systolic 100–139; BP diastolic 61–82
[2019-07-26] MEDS: Levalbuterol Inh UD 1.25mg/0.5ml HHN SCH ×4 (03:04→23:16)
--- NOTE | 2019-07-26 04:00 | NUR ---
NURSE NOTES: Pt is resting on the bed and awake and confused. Pt refused change position and refused cleaning. Pt refused blood draw at this time. Explained benefits and risks. Will continue to monitor any change of condition.
[2019-07-26] MEDS: NovoLOG Insulin Flexpen SUBQ SCH ×4 (06:24→20:03)
[2019-07-26 07:05] LABS: BASOPHILS % (AUTO) 0.9 % (0.0-2.0); EOSINOPHILS % (AUTO) 0.9 % (0.0-3.0); HEMATOCRIT 36.3 % (37.0-47.0); HEMOGLOBIN 12.4 G/DL (12.0-16.0); LYMPHOCYTES % (AUTO) 11.1 % (20.0-45.0); MEAN CORPUSCULAR VOLUME 87 FL (80-99); MONOCYTES % (AUTO) 5.5 % (1.0-10.0); NEUTROPHILS % (AUTO) 81.7 % (45.0-75.0); PLATELET COUNT 267 K/UL (150-450); RED BLOOD COUNT 4.15 M/UL (4.20-5.40); RED CELL DISTRIBUTION WIDTH 13.2 % (11.6-14.8); WHITE BLOOD COUNT 12.5 K/UL (4.8-10.8)
--- NOTE | 2019-07-26 07:09 | NUR ---
HAND-OFF: Report given to JAMEE Veloz. Pt is resting on the bed and no sign of acute distress noted. .
--- NOTE | 2019-07-26 07:10 | NUR ---
NURSE NOTES: Received report from JAMEE Alvarez. The patient is resting on the bed but is confused. The patient's bed in the lowest position, call light in reach, and fall and aspiration precaution reinforced. IV site intact and patient. The patient was on Bipap at night and is on Venturi mask per order. Will continue plan of care. Addendum: 07/26/19 at 0804 by Ozzy Calderón RN Pageerick Gan regarding potassium level of 3.1. No new order yet. Will continue plan of care. Will carry out the order as soon as receives it.
[2019-07-26 07:29] LABS: ALANINE AMINOTRANSFERASE 24 U/L (12-78); ALBUMIN 2.7 G/DL (3.4-5.0); ALBUMIN/GLOBULIN RATIO 0.7 (1.0-2.7); ALKALINE PHOSPHATASE 96 U/L (46-116); ANION GAP 4 mmol/L (5-15); ASPARTATE AMINO TRANSFERASE 17 U/L (15-37); BILIRUBIN,TOTAL 0.5 MG/DL (0.2-1.0); BLOOD UREA NITROGEN 8 mg/dL (7-18); CALCIUM 9.3 MG/DL (8.5-10.1); CARBON DIOXIDE 37 MMOL/L (21-32); CHLORIDE 97 MMOL/L (98-107); CREATININE 0.6 MG/DL (0.55-1.30); POTASSIUM 3.1 MMOL/L (3.5-5.1); SODIUM 138 MMOL/L (136-145)
[2019-07-26] MEDS: Enoxaparin 40mg Inj SUBQ SCH (08:36)
[2019-07-26] MEDS: Docusate 100mg cap ORAL SCH ×2 (08:37→17:13)
[2019-07-26] MEDS: Aspirin Baby 81mg ORAL SCH (08:37)
[2019-07-26] MEDS: dilTIAZem HCl 60mg tab ORAL SCH ×4 (08:37→20:00)
[2019-07-26] MEDS: Sertraline 50mg tab ORAL SCH (08:39)
[2019-07-26] MEDS: Memantine 5 MG TAB ORAL SCH ×2 (08:39→17:14)
--- NOTE | 2019-07-26 09:46 | General Progress Note ---
Assessment/Plan Assessment/Plan: (1) Morbid obesity (2) Lumbago (3) Peripheral neuropathy (4) COPD (5) CHF Patient will be continued on [place] D/w Dr. Hicks and he concurred. Subjective Date patient seen: Jul 26, 2019 Time patient seen: 09:00 - am Allergies: Coded Allergies: HALOPERIDOL (Verified Allergy, Unknown, 06/16/17) Subjective Constitutional: Reports: weakness HEENT: Reports: no symptoms Cardiovascular: Reports: no symptoms Respiratory: Reports: shortness of breath Gastrointestinal/Abdominal: Reports: no symptoms Genitourinary: Reports: no symptoms Neurologic/Psychiatric: Reports: no symptoms Endocrine: Reports: no symptoms Hematologic/Lymphatic: Reports: no symptoms Subjective Patient in SDU. She is off Bipap. Pain is unchanged continues to have pain which has been tolerated on the [place]. No new complaints at this time. Objective Last 24 Hour Vital Signs Date Time Temp Pulse Resp B/P (MAP) Pulse Ox O2 Delivery O2 Flow Rate FiO2 07/26/19 08:37 114 117/72 07/26/19 08:00 113 07/26/19 07:27 94 Venturi Mask 12.0 50 07/26/19 07:27 86 20 96 Venturi Mask 12.0 50 83 20 94 07/26/19 04:00 114 07/26/19 04:00 Venturi Mask 10.0 07/26/19 04:00 97.6 90 17 100/61 (74) 97 07/26/19 03:13 79 16 99 Full Face 45 07/26/19 03:04 94 15 99 Bi-Pap 45 94 14 96 07/26/19 01:25 81 14 98 Full Face 45 07/26/19 00:00 45 07/26/19 00:00 97.9 91 17 124/82 (96) 97 07/26/19 00:00 Venturi Mask 10.0 07/25/19 23:32 108 07/25/19 23:21 95 14 81 Full Face 45 07/25/19 23:19 95 15 99 Bi-Pap 45 95 14 95 07/25/19 21:50 89 17 93 Full Face 45 07/25/19 21:45 92 20 97 Bi-Pap 45 94 20 92 07/25/19 20:47 104 151/60 07/25/19 20:00 97.6 91 17 151/60 (90) 93 07/25/19 20:00 104 07/25/19 20:00 Venturi Mask 10.0 07/25/19 19:52 100 20 99 Venturi Mask 12.0 50 102 20 97 07/25/19 19:52 92 Venturi Mask 12.0 50 07/25/19 18:00 108 133/78 07/25/19 16:00 97.7 108 17 133/78 (96) 93 07/25/19 16:00 Venturi Mask 10.0 07/25/19 15:34 82 20 96 Venturi Mask 12.0 50 79 20 93 07/25/19 15:28 111 07/25/19 12:00 Venturi Mask 10.0 07/25/19 12:00 97.7 111 17 137/65 (89) 92 07/25/19 11:50 113 07/25/19 10:20 86 20 96 Venturi Mask 12.0 50 83 20 94 07/25/19 10:18 85 20 97 Bi-Pap 45 84 20 94 Intake and Output 07/25/19 07/26/19 19:00 07:00 Intake Total 360 ml 240 ml Output Total 600 ml 600 ml Balance -240 ml -360 ml Intake Oral 360 ml 240 ml Output Urine Total 600 ml 600 ml Laboratory Tests 07/25/19 10:13: Arterial Blood pH 7.340L, Arterial Blood Partial Pressure CO2 66.3*H, Arterial Blood Partial Pressure O2 69.0L, Arterial Blood HCO3 35.0H, Arterial Blood Oxygen Saturation 94.0L, Arterial Blood Base Excess 7.0H, Nathan Test Positive 07/26/19 03:58: White Blood Count 12.5H, Red Blood Count 4.15L, Hemoglobin 12.4, Hematocrit 36.3L, Mean Corpuscular Volume 87, Mean Corpuscular Hemoglobin 29.9, Mean Corpuscular Hemoglobin Concent 34.3, Red Cell Distribution Width 13.2, Platelet Count 267, Mean Platelet Volume 5.2L, Neutrophils (%) (Auto) 81.7H, Lymphocytes (%) (Auto) 11.1L, Monocytes (%) (Auto) 5.5, Eosinophils (%) (Auto) 0.9, Basophils (%) (Auto) 0.9, Sodium Level 138, Potassium Level 3.1L, Chloride Level 97L, Carbon Dioxide Level 37H, Anion Gap 4L, Blood Urea Nitrogen 8, Creatinine 0.6, Estimat Glomerular Filtration Rate > 60, Glucose Level 133H, Calcium Level 9.3, Total Bilirubin 0.5, Aspartate Amino Transf (AST/SGOT) 17, Alanine Aminotransferase (ALT/SGPT) 24, Alkaline Phosphatase 96, Pro-B-Type Natriuretic Peptide 324H, Total Protein 6.7, Albumin 2.7L, Globulin 4.0, Albumin /Globulin Ratio 0.7L Height (Feet): 5 Height (Inches): 5.00 Weight (Pounds): 396 Objective General Appearance: no apparent distress, alert EENT: PERRL/EOMI, normal ENT inspection Neck: non-tender, normal alignment Cardiovascular: normal rate, regular rhythm Respiratory/Chest: decreased breath sounds Abdomen: non tender, soft Edema: mild edema Neurologic: alert, oriented x 3 Skin: warm/dry David Odom Jul 26, 2019 09:46
[2019-07-26] MEDS: HYDROcodone/Acetamin 7.5/325 tab ORAL PRN (10:07)
--- NOTE | 2019-07-26 10:09 | NUR ---
RADIOLOGY DEPT., CHEST X-RAY DONE.-P.DYE
--- NOTE | 2019-07-26 10:11 | Nephrology Progress Note ---
Assessment/Plan Status: unchanged Assessment/Plan: 1. Metabolic alkalosis -secondary to diuresis and maintenance alkalosis from hypokalemia. off Diamox. -To correct maintenance alkalosis, hypokalemia must be aggressively corrected -HCO3 improved 2. Hypokalemia- being replaced po 3. Congestive heart failure and atrial fibrillation per Cardiology. 4. Chronic low back pain. - pain management. Subjective Date patient seen: Jul 26, 2019 Time patient seen: 10:00 ROS Limited/Unobtainable: No Allergies: Coded Allergies: HALOPERIDOL (Verified Allergy, Unknown, 06/16/17) Subjective Patient mild SOB Objective Last 24 Hour Vital Signs Date Time Temp Pulse Resp B/P (MAP) Pulse Ox O2 Delivery O2 Flow Rate FiO2 07/26/19 08:37 114 117/72 07/26/19 08:00 113 07/26/19 08:00 Venturi Mask 10.0 07/26/19 07:27 94 Venturi Mask 12.0 50 07/26/19 07:27 86 20 96 Venturi Mask 12.0 50 83 20 94 07/26/19 04:00 114 07/26/19 04:00 Venturi Mask 10.0 07/26/19 04:00 97.6 90 17 100/61 (74) 97 07/26/19 03:13 79 16 99 Full Face 45 07/26/19 03:04 94 15 99 Bi-Pap 45 94 14 96 07/26/19 01:25 81 14 98 Full Face 45 07/26/19 00:00 45 07/26/19 00:00 97.9 91 17 124/82 (96) 97 07/26/19 00:00 Venturi Mask 10.0 07/25/19 23:32 108 07/25/19 23:21 95 14 81 Full Face 45 07/25/19 23:19 95 15 99 Bi-Pap 45 95 14 95 07/25/19 21:50 89 17 93 Full Face 45 07/25/19 21:45 92 20 97 Bi-Pap 45 94 20 92 07/25/19 20:47 104 151/60 07/25/19 20:00 97.6 91 17 151/60 (90) 93 07/25/19 20:00 104 07/25/19 20:00 Venturi Mask 10.0 07/25/19 19:52 100 20 99 Venturi Mask 12.0 50 102 20 97 07/25/19 19:52 92 Venturi Mask 12.0 50 07/25/19 18:00 108 133/78 07/25/19 16:00 97.7 108 17 133/78 (96) 93 07/25/19 16:00 Venturi Mask 10.0 07/25/19 15:34 82 20 96 Venturi Mask 12.0 50 79 20 93 07/25/19 15:28 111 07/25/19 12:00 Venturi Mask 10.0 07/25/19 12:00 97.7 111 17 137/65 (89) 92 07/25/19 11:50 113 07/25/19 10:20 86 20 96 Venturi Mask 12.0 50 83 20 94 07/25/19 10:18 85 20 97 Bi-Pap 45 84 20 94 Intake and Output 07/25/19 07/26/19 19:00 07:00 Intake Total 360 ml 240 ml Output Total 600 ml 600 ml Balance -240 ml -360 ml Intake Oral 360 ml 240 ml Output Urine Total 600 ml 600 ml Laboratory Tests 07/25/19 10:13: Arterial Blood pH 7.340L, Arterial Blood Partial Pressure CO2 66.3*H, Arterial Blood Partial Pressure O2 69.0L, Arterial Blood HCO3 35.0H, Arterial Blood Oxygen Saturation 94.0L, Arterial Blood Base Excess 7.0H, Nathan Test Positive 07/26/19 03:58: White Blood Count 12.5H, Red Blood Count 4.15L, Hemoglobin 12.4, Hematocrit 36.3L, Mean Corpuscular Volume 87, Mean Corpuscular Hemoglobin 29.9, Mean Corpuscular Hemoglobin Concent 34.3, Red Cell Distribution Width 13.2, Platelet Count 267, Mean Platelet Volume 5.2L, Neutrophils (%) (Auto) 81.7H, Lymphocytes (%) (Auto) 11.1L, Monocytes (%) (Auto) 5.5, Eosinophils (%) (Auto) 0.9, Basophils (%) (Auto) 0.9, Sodium Level 138, Potassium Level 3.1L, Chloride Level 97L, Carbon Dioxide Level 37H, Anion Gap 4L, Blood Urea Nitrogen 8, Creatinine 0.6, Estimat Glomerular Filtration Rate > 60, Glucose Level 133H, Calcium Level 9.3, Total Bilirubin 0.5, Aspartate Amino Transf (AST/SGOT) 17, Alanine Aminotransferase (ALT/SGPT) 24, Alkaline Phosphatase 96, Pro-B-Type Natriuretic Peptide 324H, Total Protein 6.7, Albumin 2.7L, Globulin 4.0, Albumin /Globulin Ratio 0.7L Height (Feet): 5 Height (Inches): 5.00 Weight (Pounds): 396 General Appearance: no apparent distress, alert EENT: normal ENT inspection Neck: normal alignment, supple Cardiovascular: normal rate, regular rhythm Respiratory/Chest: rhonchi - bilaterally Abdomen: non tender, soft Edema: no edema noted Arm (L), no edema noted Arm (R), no edema noted Leg (L), no edema noted Leg (R), no edema noted Pedal (L), no edema noted Pedal (R), no edema noted Generalized Ulysses Moore MD Jul 26, 2019 10:11
[2019-07-26] MEDS: Budesonide HHN 0.25mg/2ml ud HHN SCH ×2 (10:58→21:56)
--- NOTE | 2019-07-26 11:51 | Pulmonology Progress Note ---
Assessment/Plan Problems: (1) Collapse of left lung (2) COPD (chronic obstructive pulmonary disease) (3) Peripheral edema (4) MELVIN (obstructive sleep apnea) (5) Schizophrenia (6) Morbid obesity (7) HTN (hypertension) (8) Hypothyroidism Assessment/Plan abg reviewed, slightly better, needs to stay in [place] on laxis, check BNP, watch bun/creatinine daily respiratory treatment continue supplemental oxygen symptomatic treatment titrate fio2 to sat of 92% pt is so heavy that it is difficult for her to stay on her left side? Subjective Interval Events: still on face mask Allergies: Coded Allergies: HALOPERIDOL (Verified Allergy, Unknown, 06/16/17) Objective Last 24 Hour Vital Signs Date Time Temp Pulse Resp B/P (MAP) Pulse Ox O2 Delivery O2 Flow Rate FiO2 07/26/19 10:07 93 20 108/72 (84) 97 07/26/19 08:37 114 117/72 07/26/19 08:00 113 07/26/19 08:00 97.3 114 18 117/72 (87) 95 07/26/19 08:00 Venturi Mask 10.0 07/26/19 07:27 94 Venturi Mask 12.0 50 07/26/19 07:27 86 20 96 Venturi Mask 12.0 50 83 20 94 07/26/19 04:00 114 07/26/19 04:00 Venturi Mask 10.0 07/26/19 04:00 97.6 90 17 100/61 (74) 97 07/26/19 03:13 79 16 99 Full Face 45 07/26/19 03:04 94 15 99 Bi-Pap 45 94 14 96 07/26/19 01:25 81 14 98 Full Face 45 07/26/19 00:00 45 07/26/19 00:00 97.9 91 17 124/82 (96) 97 07/26/19 00:00 Venturi Mask 10.0 07/25/19 23:32 108 07/25/19 23:21 95 14 81 Full Face 45 07/25/19 23:19 95 15 99 Bi-Pap 45 95 14 95 07/25/19 21:50 89 17 93 Full Face 45 07/25/19 21:45 92 20 97 Bi-Pap 45 94 20 92 07/25/19 20:47 104 151/60 07/25/19 20:00 97.6 91 17 151/60 (90) 93 07/25/19 20:00 104 07/25/19 20:00 Venturi Mask 10.0 07/25/19 19:52 100 20 99 Venturi Mask 12.0 50 102 20 97 07/25/19 19:52 92 Venturi Mask 12.0 50 07/25/19 18:00 108 133/78 07/25/19 16:00 97.7 108 17 133/78 (96) 93 07/25/19 16:00 Venturi Mask 10.0 07/25/19 15:34 82 20 96 Venturi Mask 12.0 50 79 20 93 07/25/19 15:28 111 07/25/19 12:00 Venturi Mask 10.0 07/25/19 12:00 97.7 111 17 137/65 (89) 92 07/25/19 11:50 113 Intake and Output 07/25/19 07/26/19 19:00 07:00 Intake Total 360 ml 240 ml Output Total 600 ml 600 ml Balance -240 ml -360 ml Intake Oral 360 ml 240 ml Output Urine Total 600 ml 600 ml General Appearance: WD/WN HEENT: normocephalic, atraumatic Respiratory/Chest: chest wall non-tender, crackles/rales Cardiovascular: normal peripheral pulses, normal rate Genitourinary: normal external genitalia Extremities: no cyanosis 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/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 Laboratory Tests 07/26/19 03:58: White Blood Count 12.5H, Red Blood Count 4.15L, Hemoglobin 12.4, Hematocrit 36.3L, Mean Corpuscular Volume 87, Mean Corpuscular Hemoglobin 29.9, Mean Corpuscular Hemoglobin Concent 34.3, Red Cell Distribution Width 13.2, Platelet Count 267, Mean Platelet Volume 5.2L, Neutrophils (%) (Auto) 81.7H, Lymphocytes (%) (Auto) 11.1L, Monocytes (%) (Auto) 5.5, Eosinophils (%) (Auto) 0.9, Basophils (%) (Auto) 0.9, Sodium Level 138, Potassium Level 3.1L, Chloride Level 97L, Carbon Dioxide Level 37H, Anion Gap 4L, Blood Urea Nitrogen 8, Creatinine 0.6, Estimat Glomerular Filtration Rate > 60, Glucose Level 133H, Calcium Level 9.3, Total Bilirubin 0.5, Aspartate Amino Transf (AST/SGOT) 17, Alanine Aminotransferase (ALT/SGPT) 24, Alkaline Phosphatase 96, Pro-B-Type Natriuretic Peptide 324H, Total Protein 6.7, Albumin 2.7L, Globulin 4.0, Albumin /Globulin Ratio 0.7L Current Medications Medications (Trade) Dose Ordered Sig/Marleni Route PRN Reason Start Time Stop Time Status Last Admin Dose Admin Acetaminophen (Tylenol) 650 mg Q6H PRN ORAL Mild Pain/Temp > 100.5 07/24/19 17:00 08/19/19 16:59 Acetaminophen/ Hydrocodone Bitart ([place] 5/325) 1 tab Q6H PRN ORAL Moderate Pain (Pain Scale 4-6) 07/26/19 10:00 07/29/19 09:59 Acetaminophen/ Hydrocodone Bitart ([place] 7.5/325) 1 tab Q4H PRN ORAL Severe Pain (Pain Scale 7-10) 07/26/19 10:00 07/29/19 09:59 07/26/19 10:07 Acetazolamide (Diamox) 250 mg TWICE A DAY ORAL 07/24/19 18:00 08/22/19 17:59 07/26/19 08:38 Acetylcysteine (Mucomyst) 400 mg Q8HRT INH 07/24/19 23:00 08/15/19 07:29 07/26/19 07:28 Aspirin (ASA) 81 mg DAILY ORAL 07/25/19 09:00 08/15/19 08:59 07/26/19 08:37 Budesonide (Pulmicort) 0.5 mg Q12HRT HHN 07/24/19 22:00 08/15/19 09:59 07/26/19 10:58 Ceftriaxone Sodium 1 gm/ Dextrose 55 ml @ 110 mls/hr Q24H IVPB 07/25/19 14:00 07/28/19 13:59 07/25/19 14:33 Dextrose (Dextrose 50%) 25 ml Q30M PRN IV Hypoglycemia 07/24/19 17:00 08/15/19 07:29 Dextrose (Dextrose 50%) 50 ml Q30M PRN IV Hypoglycemia 07/24/19 17:00 08/15/19 07:29 Diltiazem HCl (Cardizem) 60 mg QID ORAL 07/24/19 18:00 08/20/19 12:59 07/26/19 08:37 Docusate Sodium (Colace) 100 mg TWICE A DAY ORAL 07/24/19 18:00 08/15/19 08:59 07/26/19 08:37 Enoxaparin Sodium (Lovenox) 40 mg DAILY SUBQ 07/25/19 09:00 08/18/19 08:59 07/26/19 08:36 Gabapentin (Neurontin) 300 mg THREE TIMES A DAY ORAL 07/24/19 18:00 08/15/19 08:59 07/26/19 08:39 Guaifenesin (Robitussin) 200 mg Q4H PRN ORAL FOR COUGH 07/24/19 17:00 08/19/19 16:59 Insulin Aspart (NovoLOG) BEFORE MEALS AND HS SUBQ 07/24/19 21:00 08/15/19 11:29 07/26/19 06:24 Levalbuterol HCl (Xopenex) 1.25 mg Q4HRT HHN 07/24/19 19:00 07/26/19 13:59 07/26/19 10:57 Lorazepam (Ativan) 0.5 mg Q6H PRN ORAL For Anxiety 07/24/19 17:00 07/27/19 16:59 Memantine (Namenda) 5 mg BID ORAL 07/24/19 18:00 08/15/19 08:59 07/26/19 08:39 Mirtazapine (Remeron) 15 mg BEDTIME ORAL 07/24/19 21:00 08/15/19 20:59 07/25/19 20:46 Naloxone HCl (Narcan) 0.1 mg PRN PRN IV Sedation scale 3 or 4 07/24/19 17:00 08/23/19 16:59 Ondansetron HCl (Zofran) 4 mg Q4H PRN IVP Nausea & Vomiting 07/24/19 17:00 08/21/19 16:59 07/24/19 17:20 Pantoprazole (Protonix) 40 mg BEFORE BREAKFAST ORAL 07/25/19 06:30 08/16/19 06:29 07/26/19 06:00 Polyethylene Glycol (Miralax) 17 gm DAILYPRN PRN ORAL Constipation 07/24/19 17:00 08/23/19 16:59 Promethazine HCl/ Codeine (Phenergan with Codeine) 5 ml Q4H PRN ORAL For Cough 07/24/19 17:00 08/19/19 16:59 Sennosides (Senokot) 8.6 mg QHS ORAL 07/24/19 21:00 08/15/19 20:59 07/25/19 20:47 Sertraline HCl (Zoloft) 50 mg DAILY ORAL 07/25/19 09:00 08/15/19 08:59 07/26/19 08:39 Sodium Phosphate (Fleet's Sodium Phosl Enema) 133 ml DAILYPRN PRN RECTAL Constipation 07/24/19 17:00 08/23/19 16:59 Zolpidem Tartrate (Ambien) 5 mg BEDTIME PRN ORAL Insomnia 07/24/19 21:00 07/27/19 16:16 07/24/19 23:34 Fartun Gan MD Jul 26, 2019 11:51
--- NOTE | 2019-07-26 12:26 | Diagnostic Imaging Report ---
Indication: Dyspnea Technique: One view of the chest Comparison: To 04/02/2020 Findings: There is decreased pleural fluid and parenchymal consolidation on the left. Left hemidiaphragm remains obscured, residual pleural fluid and consolidation deemed likely. Mild interstitial edema persists on the right, unchanged. The heart remains enlarged Impression: Improved left-sided pleural and parenchymal disease, over 2 days. Other stable findings as described
[2019-07-26] MEDS: cefTRIAXone 1 GM in D5W 55 ML IVPB SCH (13:21)
--- NOTE | 2019-07-26 14:31 | General Progress Note ---
Assessment/Plan Problem List: (1) HTN (hypertension) ICD Codes: I10 - Essential (primary) hypertension SNOMED: 04266162 (2) COPD (chronic obstructive pulmonary disease) ICD Codes: J44.9 - Chronic obstructive pulmonary disease, unspecified SNOMED: 51173588 (3) Hypothyroidism ICD Codes: E03.9 - Hypothyroidism, unspecified SNOMED: 06764307 (4) Peripheral edema ICD Codes: R60.9 - Edema, unspecified SNOMED: 433827196 Status: unchanged Assessment/Plan: pt diet o2 pulm tx bp bs control cbc bmp in am dc plan vs scan Subjective Constitutional: Reports: weakness Allergies: Coded Allergies: HALOPERIDOL (Verified Allergy, Unknown, 06/16/17) All Systems: reviewed and negative except above Subjective o2 mask sleepy Objective Last 24 Hour Vital Signs Date Time Temp Pulse Resp B/P (MAP) Pulse Ox O2 Delivery O2 Flow Rate FiO2 07/26/19 12:10 97 136/70 07/26/19 12:00 99 07/26/19 12:00 Venturi Mask 10.0 07/26/19 11:55 97.8 97 18 136/70 (92) 95 07/26/19 10:50 87 20 96 Venturi Mask 10.0 45 86 20 95 07/26/19 10:50 87 20 96 Venturi Mask 12.0 50 86 20 95 07/26/19 10:07 93 20 108/72 (84) 97 07/26/19 08:37 114 117/72 07/26/19 08:00 113 07/26/19 08:00 97.3 114 18 117/72 (87) 95 07/26/19 08:00 Venturi Mask 10.0 07/26/19 07:27 94 Venturi Mask 12.0 50 07/26/19 07:27 86 20 96 Venturi Mask 12.0 50 83 20 94 07/26/19 04:00 114 07/26/19 04:00 Venturi Mask 10.0 07/26/19 04:00 97.6 90 17 100/61 (74) 97 07/26/19 03:13 79 16 99 Full Face 45 07/26/19 03:04 94 15 99 Bi-Pap 45 94 14 96 07/26/19 01:25 81 14 98 Full Face 45 07/26/19 00:00 45 07/26/19 00:00 97.9 91 17 124/82 (96) 97 07/26/19 00:00 Venturi Mask 10.0 07/25/19 23:32 108 07/25/19 23:21 95 14 81 Full Face 45 07/25/19 23:19 95 15 99 Bi-Pap 45 95 14 95 07/25/19 21:50 89 17 93 Full Face 45 07/25/19 21:45 92 20 97 Bi-Pap 45 94 20 92 07/25/19 20:47 104 151/60 07/25/19 20:00 97.6 91 17 151/60 (90) 93 07/25/19 20:00 104 07/25/19 20:00 Venturi Mask 10.0 07/25/19 19:52 100 20 99 Venturi Mask 12.0 50 102 20 97 07/25/19 19:52 92 Venturi Mask 12.0 50 07/25/19 18:00 108 133/78 07/25/19 16:00 97.7 108 17 133/78 (96) 93 07/25/19 16:00 Venturi Mask 10.0 07/25/19 15:34 82 20 96 Venturi Mask 12.0 50 79 20 93 07/25/19 15:28 111 Intake and Output 07/25/19 07/26/19 19:00 07:00 Intake Total 360 ml 240 ml Output Total 600 ml 600 ml Balance -240 ml -360 ml Intake Oral 360 ml 240 ml Output Urine Total 600 ml 600 ml Laboratory Tests 07/26/19 03:58: White Blood Count 12.5H, Red Blood Count 4.15L, Hemoglobin 12.4, Hematocrit 36.3L, Mean Corpuscular Volume 87, Mean Corpuscular Hemoglobin 29.9, Mean Corpuscular Hemoglobin Concent 34.3, Red Cell Distribution Width 13.2, Platelet Count 267, Mean Platelet Volume 5.2L, Neutrophils (%) (Auto) 81.7H, Lymphocytes (%) (Auto) 11.1L, Monocytes (%) (Auto) 5.5, Eosinophils (%) (Auto) 0.9, Basophils (%) (Auto) 0.9, Sodium Level 138, Potassium Level 3.1L, Chloride Level 97L, Carbon Dioxide Level 37H, Anion Gap 4L, Blood Urea Nitrogen 8, Creatinine 0.6, Estimat Glomerular Filtration Rate > 60, Glucose Level 133H, Calcium Level 9.3, Total Bilirubin 0.5, Aspartate Amino Transf (AST/SGOT) 17, Alanine Aminotransferase (ALT/SGPT) 24, Alkaline Phosphatase 96, Pro-B-Type Natriuretic Peptide 324H, Total Protein 6.7, Albumin 2.7L, Globulin 4.0, Albumin /Globulin Ratio 0.7L Height (Feet): 5 Height (Inches): 5.00 Weight (Pounds): 309 General Appearance: lethargic EENT: normal ENT inspection Neck: normal alignment Cardiovascular: normal peripheral pulses, normal rate, regular rhythm Respiratory/Chest: chest wall non-tender, decreased breath sounds Abdomen: normal bowel sounds, non tender, soft Extremities: normal inspection Edema: no edema noted Arm (L), no edema noted Arm (R), no edema noted Leg (L), no edema noted Leg (R), no edema noted Pedal (L), no edema noted Pedal (R), no edema noted Generalized Neurologic: motor weakness Skin: normal pigmentation, warm/dry Bill Lane DO Jul 26, 2019 14:31
--- NOTE | 2019-07-26 17:46 | Infectious Diseases Prog Note ---
Assessment/Plan Assessment/Plan Assessment: Sepsis, Sp PNA CHF L lung collapse -07/23 CXR: Improved aeration left lung with persistent moderate diffuse alveolar infiltrate suspicious for pneumonia and/or atelectasis. There is unchanged mild superimposed pulmonary edema with improving mild left pleural effusion -07/21 US Chest:No pleural effusion -07/20 CXR: Complete opacification of left hemithorax at least partly due to atelectasis. Some volume loss noted.Congestive heart failure. -07/18 CXR: Suspected left perihilar infiltrate. Correlate clinically. Slightly worsening CH -07/15 CXR: Limited hypoventilatory exam. Prominence of the central bronchovascular structures may be in part due to low lung volumes. 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 Will continue to follow along with you. Discussed with RN. Subjective Allergies: Coded Allergies: HALOPERIDOL (Verified Allergy, Unknown, 06/16/17) Subjective afebrile leukocytosis increased on venturi mask Objective Vital Signs Last 24 Hour Vital Signs Date Time Temp Pulse Resp B/P (MAP) Pulse Ox O2 Delivery O2 Flow Rate FiO2 07/26/19 17:12 96 135/65 07/26/19 16:00 101 07/26/19 16:00 98.6 96 20 135/65 (88) 96 07/26/19 16:00 Venturi Mask 10.0 07/26/19 12:10 97 136/70 07/26/19 12:00 99 07/26/19 12:00 Venturi Mask 10.0 07/26/19 11:55 97.8 97 18 136/70 (92) 95 07/26/19 10:50 87 20 96 Venturi Mask 10.0 45 86 20 95 07/26/19 10:50 87 20 96 Venturi Mask 12.0 50 86 20 95 07/26/19 10:07 93 20 108/72 (84) 97 07/26/19 08:37 114 117/72 07/26/19 08:00 113 07/26/19 08:00 97.3 114 18 117/72 (87) 95 07/26/19 08:00 Venturi Mask 10.0 07/26/19 07:27 94 Venturi Mask 12.0 50 07/26/19 07:27 86 20 96 Venturi Mask 12.0 50 83 20 94 07/26/19 04:00 114 07/26/19 04:00 Venturi Mask 10.0 07/26/19 04:00 97.6 90 17 100/61 (74) 97 07/26/19 03:13 79 16 99 Full Face 45 07/26/19 03:04 94 15 99 Bi-Pap 45 94 14 96 07/26/19 01:25 81 14 98 Full Face 45 07/26/19 00:00 45 07/26/19 00:00 97.9 91 17 124/82 (96) 97 07/26/19 00:00 Venturi Mask 10.0 07/25/19 23:32 108 07/25/19 23:21 95 14 81 Full Face 45 07/25/19 23:19 95 15 99 Bi-Pap 45 95 14 95 07/25/19 21:50 89 17 93 Full Face 45 07/25/19 21:45 92 20 97 Bi-Pap 45 94 20 92 07/25/19 20:47 104 151/60 07/25/19 20:00 97.6 91 17 151/60 (90) 93 07/25/19 20:00 104 07/25/19 20:00 Venturi Mask 10.0 07/25/19 19:52 100 20 99 Venturi Mask 12.0 50 102 20 97 07/25/19 19:52 92 Venturi Mask 12.0 50 07/25/19 18:00 108 133/78 Height (Feet): 5 Height (Inches): 5.00 Weight (Pounds): 309 Objective GENERAL: on VM CARDIOVASCULAR: No murmur. LUNGS: Poor air exchange. ABDOMEN: non tender, soft, non distended EXTREMITIES: No cyanosis or clubbing. 1+ edema. NEUROLOGIC: The patient is moving all extremities, slightly weak SKIN: erythema on L breast and abd wall improving Laboratory Tests Test 07/26/19 03:58 White Blood Count 12.5 K/UL (4.8-10.8) H Red Blood Count 4.15 M/UL (4.20-5.40) L Hemoglobin 12.4 G/DL (12.0-16.0) Hematocrit 36.3 % (37.0-47.0) L Mean Corpuscular Volume 87 FL (80-99) Mean Corpuscular Hemoglobin 29.9 PG (27.0-31.0) Mean Corpuscular Hemoglobin Concent 34.3 G/DL (32.0-36.0) Red Cell Distribution Width 13.2 % (11.6-14.8) Platelet Count 267 K/UL (150-450) Mean Platelet Volume 5.2 FL (6.5-10.1) L Neutrophils (%) (Auto) 81.7 % (45.0-75.0) H Lymphocytes (%) (Auto) 11.1 % (20.0-45.0) L Monocytes (%) (Auto) 5.5 % (1.0-10.0) Eosinophils (%) (Auto) 0.9 % (0.0-3.0) Basophils (%) (Auto) 0.9 % (0.0-2.0) Sodium Level 138 MMOL/L (136-145) Potassium Level 3.1 MMOL/L (3.5-5.1) L Chloride Level 97 MMOL/L (98-107) L Carbon Dioxide Level 37 MMOL/L (21-32) H Anion Gap 4 mmol/L (5-15) L Blood Urea Nitrogen 8 mg/dL (7-18) Creatinine 0.6 MG/DL (0.55-1.30) Estimat Glomerular Filtration Rate > 60 mL/min (>60) Glucose Level 133 MG/DL (74-106) H Calcium Level 9.3 MG/DL (8.5-10.1) Total Bilirubin 0.5 MG/DL (0.2-1.0) Aspartate Amino Transf (AST/SGOT) 17 U/L (15-37) Alanine Aminotransferase (ALT/SGPT) 24 U/L (12-78) Alkaline Phosphatase 96 U/L (46-116) Pro-B-Type Natriuretic Peptide 324 pg/mL (0-125) H Total Protein 6.7 G/DL (6.4-8.2) Albumin 2.7 G/DL (3.4-5.0) L Globulin 4.0 g/dL Albumin/Globulin Ratio 0.7 (1.0-2.7) L Current Medications Medications (Trade) Dose Ordered Sig/Marleni Route PRN Reason Start Time Stop Time Status Last Admin Dose Admin Acetaminophen (Tylenol) 650 mg Q6H PRN ORAL Mild Pain/Temp > 100.5 07/24/19 17:00 08/19/19 16:59 Acetaminophen/ Hydrocodone Bitart ([place] 5/325) 1 tab Q6H PRN ORAL Moderate Pain (Pain Scale 4-6) 07/26/19 10:00 07/29/19 09:59 Acetaminophen/ Hydrocodone Bitart ([place] 7.5/325) 1 tab Q4H PRN ORAL Severe Pain (Pain Scale 7-10) 07/26/19 10:00 07/29/19 09:59 07/26/19 10:07 Acetazolamide (Diamox) 250 mg TWICE A DAY ORAL 07/24/19 18:00 08/22/19 17:59 07/26/19 17:13 Acetylcysteine (Mucomyst) 400 mg Q8HRT INH 07/24/19 23:00 08/15/19 07:29 07/26/19 07:28 Aspirin (ASA) 81 mg DAILY ORAL 07/25/19 09:00 08/15/19 08:59 07/26/19 08:37 Budesonide (Pulmicort) 0.5 mg Q12HRT HHN 07/24/19 22:00 08/15/19 09:59 07/26/19 10:58 Ceftriaxone Sodium 1 gm/ Dextrose 55 ml @ 110 mls/hr Q24H IVPB 07/25/19 14:00 07/28/19 13:59 07/26/19 13:21 Dextrose (Dextrose 50%) 25 ml Q30M PRN IV Hypoglycemia 07/24/19 17:00 08/15/19 07:29 Dextrose (Dextrose 50%) 50 ml Q30M PRN IV Hypoglycemia 07/24/19 17:00 08/15/19 07:29 Diltiazem HCl (Cardizem) 60 mg QID ORAL 07/24/19 18:00 08/20/19 12:59 07/26/19 17:12 Docusate Sodium (Colace) 100 mg TWICE A DAY ORAL 07/24/19 18:00 08/15/19 08:59 07/26/19 17:13 Enoxaparin Sodium (Lovenox) 40 mg DAILY SUBQ 07/25/19 09:00 08/18/19 08:59 07/26/19 08:36 Gabapentin (Neurontin) 300 mg THREE TIMES A DAY ORAL 07/24/19 18:00 08/15/19 08:59 07/26/19 17:14 Guaifenesin (Robitussin) 200 mg Q4H PRN ORAL FOR COUGH 07/24/19 17:00 08/19/19 16:59 Insulin Aspart (NovoLOG) BEFORE MEALS AND HS SUBQ 07/24/19 21:00 08/15/19 11:29 07/26/19 06:24 Levalbuterol HCl (Xopenex) 1.25 mg Q4HRT HHN 07/26/19 23:00 07/31/19 22:59 Lorazepam (Ativan) 0.5 mg Q6H PRN ORAL For Anxiety 07/24/19 17:00 07/27/19 16:59 Memantine (Namenda) 5 mg BID ORAL 07/24/19 18:00 08/15/19 08:59 07/26/19 17:14 Mirtazapine (Remeron) 15 mg BEDTIME ORAL 07/24/19 21:00 08/15/19 20:59 07/25/19 20:46 Naloxone HCl (Narcan) 0.1 mg PRN PRN IV Sedation scale 3 or 4 07/24/19 17:00 08/23/19 16:59 Ondansetron HCl (Zofran) 4 mg Q4H PRN IVP Nausea & Vomiting 07/24/19 17:00 08/21/19 16:59 07/24/19 17:20 Pantoprazole (Protonix) 40 mg BEFORE BREAKFAST ORAL 07/25/19 06:30 08/16/19 06:29 07/26/19 06:00 Polyethylene Glycol (Miralax) 17 gm DAILYPRN PRN ORAL Constipation 07/24/19 17:00 08/23/19 16:59 Promethazine HCl/ Codeine (Phenergan with Codeine) 5 ml Q4H PRN ORAL For Cough 07/24/19 17:00 08/19/19 16:59 Sennosides (Senokot) 8.6 mg QHS ORAL 07/24/19 21:00 08/15/19 20:59 07/25/19 20:47 Sertraline HCl (Zoloft) 50 mg DAILY ORAL 07/25/19 09:00 08/15/19 08:59 07/26/19 08:39 Sodium Phosphate (Fleet's Sodium Phosl Enema) 133 ml DAILYPRN PRN RECTAL Constipation 07/24/19 17:00 08/23/19 16:59 Zolpidem Tartrate (Ambien) 5 mg BEDTIME PRN ORAL Insomnia 07/24/19 21:00 07/27/19 16:16 07/24/19 23:34 Ange Grant M.D. Jul 26, 2019 17:46
[2019-07-26] MEDS: HYDROcodone/Acetamin 5/325 tab ORAL PRN (18:29)
--- NOTE | 2019-07-26 18:50 | NUR ---
NURSE NOTES: Pt c/o SOB, pt on Venturi mask 10L FiO2 45%, SpO2 95%. Noted patient does not have breathing treatment PRN for SOB, pt on Levalbuterol 1.25 mg HHN Q4HRT scheduled at 2300 hours. Contacted and informed Dr. Gan of assessments and inquired if okay to place patient on Levalbuterol 1.25 mg HHN Q4HRT PRN for SOB. Dr. Gan acknowledged and ordered Levalbuterol 1.25 mg HHN Q4HRT PRN for SOB. Order entered, noted, and carried out. Will continue to monitor patient.
[2019-07-26] MEDS ORDERED: Levalbuterol Inh UD 1.25mg/0.5ml HHN PRN (18:52)
--- NOTE | 2019-07-26 19:10 | NUR ---
HAND-OFF: Report given to JAMEE Meyer.
--- NOTE | 2019-07-26 19:22 | NUR ---
NURSE NOTES: Received report from Magdiel RN, pt. in bed awake- A/O x's 4-a bel to make needs known, no signs or symptoms of acute cardiac or respiratory distress noted, call light within easy reach, bed alarm on, side rails up x's3 and safety brakes engaged, pt. appears to be resting comfortably in bed, pt. appears to be sating well on Venturi mask 10L Fio2 at 45%- no distress noted, Huertas intact and draining to gravity, HOB elevated, suction at bed side, LFA 20G IV intact and patent, safety measures continued, will continue with plan of care.
[2019-07-26] MEDS: Sennosides 8.6mg tab ORAL SCH (20:01)
[2019-07-26] MEDS: Piperacillin/Tazobactam 3.375 GM in NS 110 ML IVPB SCH (20:01)
[2019-07-26] MEDS: Vancomycin 1.25gm/NS Premix q24h IVPB SCH (23:40)
[2019-07-27] VITALS: BP 108/68
[2019-07-27] MEDS: Zolpidem 5mg tab ORAL PRN (00:11)
[2019-07-27] MEDS: Levalbuterol Inh UD 1.25mg/0.5ml HHN SCH ×6 (02:55→23:48)
[2019-07-27] MEDS: Piperacillin/Tazobactam 3.375 GM in NS 110 ML IVPB SCH ×3 (03:13→20:21)
[2019-07-27 04:00] VITALS: BP 123/66
[2019-07-27] MEDS: NovoLOG Insulin Flexpen SUBQ SCH ×4 (05:30→20:22)
[2019-07-27 06:21] LABS: BASOPHILS % (AUTO) 1.3 % (0.0-2.0); EOSINOPHILS % (AUTO) 0.3 % (0.0-3.0); HEMATOCRIT 37.1 % (37.0-47.0); HEMOGLOBIN 12.4 G/DL (12.0-16.0); LYMPHOCYTES % (AUTO) 15.4 % (20.0-45.0); MEAN CORPUSCULAR VOLUME 89 FL (80-99); MONOCYTES % (AUTO) 5.5 % (1.0-10.0); NEUTROPHILS % (AUTO) 77.6 % (45.0-75.0); PLATELET COUNT 259 K/UL (150-450); RED BLOOD COUNT 4.17 M/UL (4.20-5.40); RED CELL DISTRIBUTION WIDTH 13.4 % (11.6-14.8); WHITE BLOOD COUNT 11.4 K/UL (4.8-10.8)
--- NOTE | 2019-07-27 06:55 | NUR ---
HAND-OFF: Report given to Magdiel RN, pt. remains stable and no signs of distress noted.
--- NOTE | 2019-07-27 07:00 | NUR ---
NURSE NOTES: Received report from JAMEE Meyer. Patient is resting in bed, in stable condition. No s/sx of SOB, breathing is unlabored, pt is on Venturi mask 10L 45% with SpO2 95%. Denies pain at this time. Bed is in lowest position, brakes engaged. Call light is kept within reach. Will continue to monitor patient.
[2019-07-27 07:06] LABS: ALANINE AMINOTRANSFERASE 25 U/L (12-78); ALBUMIN 2.8 G/DL (3.4-5.0); ALBUMIN/GLOBULIN RATIO 0.7 (1.0-2.7); ALKALINE PHOSPHATASE 95 U/L (46-116); ANION GAP 10 mmol/L (5-15); ASPARTATE AMINO TRANSFERASE 23 U/L (15-37); BILIRUBIN,TOTAL 0.4 MG/DL (0.2-1.0); BLOOD UREA NITROGEN 9 mg/dL (7-18); CALCIUM 9.4 MG/DL (8.5-10.1); CARBON DIOXIDE 32 MMOL/L (21-32); CHLORIDE 96 MMOL/L (98-107); CREATININE 0.7 MG/DL (0.55-1.30); POTASSIUM 3.9 MMOL/L (3.5-5.1); SODIUM 138 MMOL/L (136-145)
--- NOTE | 2019-07-27 07:15 | Progress Note ---
DATE: 07/26/2019 SUBJECTIVE: This is a 73-year-old female. She has cough and back pain. She has mood lability and decline in cognition below baseline. That is why, her attending has requested daily psychiatric consultation at this time. MENTAL STATUS EXAMINATION: This is a 73-year-old female. Appearance is disheveled. Attitude, irritable and agitated. Affect, guarded and restricted. Intellect poor. Mood, depressed and anxious. Motor activity, psychomotor agitation. Insight and judgment is poor. DIAGNOSIS: Major depression mild, recurrent with psychotic features. PLAN: 00:37. I encouraged her to interact appropriately with staff. Chart reviewed. Discussed with staff. Seen and assessed at bedside. 01:[address]: MONTRELL JOB#: [id number] CC:
[2019-07-27 08:00] VITALS: BP 110/64
[2019-07-27] MEDS: Aspirin Baby 81mg ORAL SCH (09:04)
[2019-07-27] MEDS: Sertraline 50mg tab ORAL SCH (09:04)
[2019-07-27] MEDS: Memantine 5 MG TAB ORAL SCH ×2 (09:04→17:19)
[2019-07-27] MEDS: Docusate 100mg cap ORAL SCH ×2 (09:04→17:18)
[2019-07-27] MEDS: Enoxaparin 40mg Inj SUBQ SCH (09:06)
[2019-07-27] MEDS: dilTIAZem HCl 60mg tab ORAL SCH ×4 (09:07→20:22)
--- NOTE | 2019-07-27 09:14 | NUR ---
RADIOLOGY DEPT., CHEST X-RAY DONE.-P.DYE
--- NOTE | 2019-07-27 09:16 | General Progress Note ---
Assessment/Plan Assessment/Plan: (1) Morbid obesity (2) Lumbago (3) Peripheral neuropathy (4) COPD (5) CHF Patient will be continued on [place] D/w Dr. Hicks and he concurred. Subjective Date patient seen: Jul 27, 2019 Time patient seen: 09:15 - am Allergies: Coded Allergies: HALOPERIDOL (Verified Allergy, Unknown, 06/16/17) Subjective Constitutional: Reports: weakness HEENT: Reports: no symptoms Cardiovascular: Reports: no symptoms Respiratory: Reports: shortness of breath Gastrointestinal/Abdominal: Reports: no symptoms Genitourinary: Reports: no symptoms Neurologic/Psychiatric: Reports: no symptoms Endocrine: Reports: no symptoms Hematologic/Lymphatic: Reports: no symptoms Subjective Patient in SDU. She has no signs of pain or distress. Continues to tolerate the pain on the norco. She has no new complaints at this time. Objective Last 24 Hour Vital Signs Date Time Temp Pulse Resp B/P (MAP) Pulse Ox O2 Delivery O2 Flow Rate FiO2 07/27/19 09:07 109 122/65 07/27/19 08:00 97.3 98 20 110/64 (79) 96 07/27/19 07:58 108 22 97 Venturi Mask 10.0 45 100 22 96 07/27/19 07:43 96 07/27/19 07:43 96 Venturi Mask 10.0 45 07/27/19 04:00 Venturi Mask 10.0 07/27/19 04:00 98.1 98 20 123/66 (85) 97 07/27/19 04:00 10.0 45 07/27/19 03:39 103 07/27/19 03:05 90 20 98 Venturi Mask 10.0 45 07/27/19 02:55 92 20 95 Venturi Mask 10.0 45 07/27/19 00:00 10.0 45 07/27/19 00:00 Venturi Mask 10.0 07/27/19 00:00 99.1 95 24 108/68 (81) 95 07/26/19 23:31 100 20 98 Venturi Mask 10.0 45 07/26/19 23:31 100 20 98 Venturi Mask 10.0 45 07/26/19 23:29 107 07/26/19 23:16 95 20 97 Venturi Mask 10.0 45 07/26/19 23:16 95 20 97 Venturi Mask 10.0 45 07/26/19 22:06 102 20 99 Venturi Mask 10.0 45 07/26/19 21:56 91 20 97 Venturi Mask 10.0 45 07/26/19 20:00 98.0 90 22 109/62 (78) 98 07/26/19 20:00 Venturi Mask 10.0 07/26/19 20:00 97 109/62 07/26/19 20:00 10.0 45 07/26/19 19:37 99 Venturi Mask 10.0 40 07/26/19 19:02 105 07/26/19 18:53 110 20 139/63 (88) 95 07/26/19 18:30 101 20 124/67 (86) 95 07/26/19 17:12 96 135/65 07/26/19 16:00 101 07/26/19 16:00 98.6 96 20 135/65 (88) 96 07/26/19 16:00 Venturi Mask 10.0 07/26/19 12:10 97 136/70 07/26/19 12:00 99 07/26/19 12:00 Venturi Mask 10.0 07/26/19 11:55 97.8 97 18 136/70 (92) 95 07/26/19 10:50 87 20 96 Venturi Mask 10.0 45 86 20 95 07/26/19 10:50 87 20 96 Venturi Mask 12.0 50 86 20 95 07/26/19 10:07 93 20 108/72 (84) 97 Intake and Output 07/26/19 07/27/19 19:00 07:00 Intake Total 1100 ml 531.666 ml Output Total 1100 ml 1000 ml Balance 0 ml -468.334 ml Intake Oral 1100 ml IV Total 531.666 ml Output Urine Total 1100 ml 1000 ml Laboratory Tests 07/27/19 06:00: White Blood Count 11.4H, Red Blood Count 4.17L, Hemoglobin 12.4, Hematocrit 37.1 , Mean Corpuscular Volume 89, Mean Corpuscular Hemoglobin 29.8, Mean Corpuscular Hemoglobin Concent 33.5, Red Cell Distribution Width 13.4, Platelet Count 259, Mean Platelet Volume 5.0L, Neutrophils (%) (Auto) 77.6H, Lymphocytes (%) (Auto) 15.4L, Monocytes (%) (Auto) 5.5, Eosinophils (%) (Auto) 0.3, Basophils (%) (Auto) 1.3, Sodium Level 138, Potassium Level 3.9, Chloride Level 96L, Carbon Dioxide Level 32, Anion Gap 10, Blood Urea Nitrogen 9, Creatinine 0.7, Estimat Glomerular Filtration Rate > 60, Glucose Level 109H, Calcium Level 9.4, Total Bilirubin 0.4, Aspartate Amino Transf (AST/SGOT) 23, Alanine Aminotransferase (ALT/SGPT) 25, Alkaline Phosphatase 95, Pro-B-Type Natriuretic Peptide 328H, Total Protein 6.7, Albumin 2.8L, Globulin 3.9, Albumin/Globulin Ratio 0.7L Height (Feet): 5 Height (Inches): 5.00 Weight (Pounds): 309 Objective General Appearance: no apparent distress, alert EENT: PERRL/EOMI, normal ENT inspection Neck: non-tender, normal alignment Cardiovascular: normal rate, regular rhythm Respiratory/Chest: decreased breath sounds Abdomen: non tender, soft Edema: mild edema Neurologic: alert, oriented x 3 Skin: warm/dry David Odom Jul 27, 2019 09:16
[2019-07-27] MEDS: Budesonide HHN 0.25mg/2ml ud HHN SCH ×2 (10:13→21:17)
--- NOTE | 2019-07-27 10:30 | Diagnostic Imaging Report ---
Indication: Shortness of breath Technique: One view of the chest Comparison: To 06/02/2020 Findings: There is increased pleural fluid and parenchymal consolidation involving the left lung. There is persistent mild left lung volume loss. There is mild interstitial congestion in the right lung which is unchanged. The heart remains enlarged old healed rib fracture deformities are again demonstrated on the left Impression: Increasing pleural fluid and parenchymal consolidation/edema on the left, over one day Stable right-sided interstitial congestion
[2019-07-27] MEDS: Vancomycin 1.25gm/NS Premix q24h IVPB SCH ×2 (10:53→23:34)
[2019-07-27 11:02] VITALS: BP 110/78
--- NOTE | 2019-07-27 11:07 | Infectious Diseases Prog Note ---
Assessment/Plan Assessment/Plan Assessment: Sepsis, Sp PNA CHF L lung collapse -07/27 CXR: Increasing pleural fluid and parenchymal consolidation/edema on the left,over one day.Stable right-sided interstitial congestion -07/26 sp cx p -07/23 CXR: Improved aeration left lung with persistent moderate diffuse alveolar infiltrate suspicious for pneumonia and/or atelectasis. There is unchanged mild superimposed pulmonary edema with improving mild left pleural effusion -07/21 US Chest:No pleural effusion -07/20 CXR: Complete opacification of left hemithorax at least partly due to atelectasis. Some volume loss noted.Congestive heart failure. -07/18 CXR: Suspected left perihilar infiltrate. Correlate clinically. Slightly worsening CH -07/15 CXR: Limited hypoventilatory exam. Prominence of the central bronchovascular structures may be in part due to low lung volumes. 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 Will continue to follow along with you. Discussed with RN. Subjective Allergies: Coded Allergies: HALOPERIDOL (Verified Allergy, Unknown, 06/16/17) Subjective afebrile leukocytosis improved remains on venturi mask Objective Vital Signs Last 24 Hour Vital Signs Date Time Temp Pulse Resp B/P (MAP) Pulse Ox O2 Delivery O2 Flow Rate FiO2 07/27/19 10:33 104 20 98 Venturi Mask 10.0 45 101 24 96 07/27/19 10:23 101 22 99 Venturi Mask 10.0 45 108 24 96 07/27/19 09:07 109 122/65 07/27/19 08:00 97.3 98 20 110/64 (79) 96 07/27/19 07:58 108 22 97 Venturi Mask 10.0 45 100 22 96 07/27/19 07:43 96 07/27/19 07:43 96 Venturi Mask 10.0 45 07/27/19 04:00 Venturi Mask 10.0 07/27/19 04:00 98.1 98 20 123/66 (85) 97 07/27/19 04:00 10.0 45 07/27/19 03:39 103 07/27/19 03:05 90 20 98 Venturi Mask 10.0 45 07/27/19 02:55 92 20 95 Venturi Mask 10.0 45 07/27/19 00:00 10.0 45 07/27/19 00:00 Venturi Mask 10.0 07/27/19 00:00 99.1 95 24 108/68 (81) 95 07/26/19 23:31 100 20 98 Venturi Mask 10.0 45 07/26/19 23:31 100 20 98 Venturi Mask 10.0 45 07/26/19 23:29 107 07/26/19 23:16 95 20 97 Venturi Mask 10.0 45 07/26/19 23:16 95 20 97 Venturi Mask 10.0 45 07/26/19 22:06 102 20 99 Venturi Mask 10.0 45 07/26/19 21:56 91 20 97 Venturi Mask 10.0 45 07/26/19 20:00 98.0 90 22 109/62 (78) 98 07/26/19 20:00 Venturi Mask 10.0 07/26/19 20:00 97 109/62 07/26/19 20:00 10.0 45 07/26/19 19:37 99 Venturi Mask 10.0 40 07/26/19 19:02 105 07/26/19 18:53 110 20 139/63 (88) 95 07/26/19 18:30 101 20 124/67 (86) 95 07/26/19 17:12 96 135/65 07/26/19 16:00 101 07/26/19 16:00 98.6 96 20 135/65 (88) 96 07/26/19 16:00 Venturi Mask 10.0 07/26/19 12:10 97 136/70 07/26/19 12:00 99 07/26/19 12:00 Venturi Mask 10.0 07/26/19 11:55 97.8 97 18 136/70 (92) 95 Height (Feet): 5 Height (Inches): 5.00 Weight (Pounds): 309 Objective GENERAL: on VM CARDIOVASCULAR: No murmur. LUNGS: Poor air exchange. ABDOMEN: non tender, soft, non distended EXTREMITIES: No cyanosis or clubbing. 1+ edema. NEUROLOGIC: The patient is moving all extremities, slightly weak SKIN: erythema on L breast and abd wall improving Microbiology Date/Time Source Procedure Growth Status 07/26/19 20:45 Sputum Induced Gram Stain - Final Resulted 07/26/19 20:45 Sputum Induced Sputum Culture Pending Resulted Laboratory Tests Test 07/27/19 06:00 White Blood Count 11.4 K/UL (4.8-10.8) H Red Blood Count 4.17 M/UL (4.20-5.40) L Hemoglobin 12.4 G/DL (12.0-16.0) Hematocrit 37.1 % (37.0-47.0) Mean Corpuscular Volume 89 FL (80-99) Mean Corpuscular Hemoglobin 29.8 PG (27.0-31.0) Mean Corpuscular Hemoglobin Concent 33.5 G/DL (32.0-36.0) Red Cell Distribution Width 13.4 % (11.6-14.8) Platelet Count 259 K/UL (150-450) Mean Platelet Volume 5.0 FL (6.5-10.1) L Neutrophils (%) (Auto) 77.6 % (45.0-75.0) H Lymphocytes (%) (Auto) 15.4 % (20.0-45.0) L Monocytes (%) (Auto) 5.5 % (1.0-10.0) Eosinophils (%) (Auto) 0.3 % (0.0-3.0) Basophils (%) (Auto) 1.3 % (0.0-2.0) Sodium Level 138 MMOL/L (136-145) Potassium Level 3.9 MMOL/L (3.5-5.1) Chloride Level 96 MMOL/L (98-107) L Carbon Dioxide Level 32 MMOL/L (21-32) Anion Gap 10 mmol/L (5-15) Blood Urea Nitrogen 9 mg/dL (7-18) Creatinine 0.7 MG/DL (0.55-1.30) Estimat Glomerular Filtration Rate > 60 mL/min (>60) Glucose Level 109 MG/DL (74-106) H Calcium Level 9.4 MG/DL (8.5-10.1) Total Bilirubin 0.4 MG/DL (0.2-1.0) Aspartate Amino Transf (AST/SGOT) 23 U/L (15-37) Alanine Aminotransferase (ALT/SGPT) 25 U/L (12-78) Alkaline Phosphatase 95 U/L (46-116) Pro-B-Type Natriuretic Peptide 328 pg/mL (0-125) H Total Protein 6.7 G/DL (6.4-8.2) Albumin 2.8 G/DL (3.4-5.0) L Globulin 3.9 g/dL Albumin/Globulin Ratio 0.7 (1.0-2.7) L Current Medications Medications (Trade) Dose Ordered Sig/Marleni Route PRN Reason Start Time Stop Time Status Last Admin Dose Admin Acetaminophen (Tylenol) 650 mg Q6H PRN ORAL Mild Pain/Temp > 100.5 07/24/19 17:00 08/19/19 16:59 Acetaminophen/ Hydrocodone Bitart ([place] 5/325) 1 tab Q6H PRN ORAL Moderate Pain (Pain Scale 4-6) 07/26/19 10:00 07/29/19 09:59 07/26/19 18:29 Acetaminophen/ Hydrocodone Bitart ([place] 7.5/325) 1 tab Q4H PRN ORAL Severe Pain (Pain Scale 7-10) 07/26/19 10:00 07/29/19 09:59 07/26/19 10:07 Acetazolamide (Diamox) 250 mg TWICE A DAY ORAL 07/24/19 18:00 08/22/19 17:59 07/27/19 09:04 Acetylcysteine (Mucomyst) 400 mg Q8HRT INH 07/24/19 23:00 08/15/19 07:29 07/27/19 07:43 Aspirin (ASA) 81 mg DAILY ORAL 07/25/19 09:00 08/15/19 08:59 07/27/19 09:04 Budesonide (Pulmicort) 0.5 mg Q12HRT HHN 07/24/19 22:00 08/15/19 09:59 07/27/19 10:13 Dextrose (Dextrose 50%) 25 ml Q30M PRN IV Hypoglycemia 07/24/19 17:00 08/15/19 07:29 Dextrose (Dextrose 50%) 50 ml Q30M PRN IV Hypoglycemia 07/24/19 17:00 08/15/19 07:29 Diltiazem HCl (Cardizem) 60 mg QID ORAL 07/24/19 18:00 08/20/19 12:59 07/27/19 09:07 Docusate Sodium (Colace) 100 mg TWICE A DAY ORAL 07/24/19 18:00 08/15/19 08:59 07/27/19 09:04 Enoxaparin Sodium (Lovenox) 40 mg DAILY SUBQ 07/25/19 09:00 08/18/19 08:59 07/27/19 09:06 Gabapentin (Neurontin) 300 mg THREE TIMES A DAY ORAL 07/24/19 18:00 08/15/19 08:59 07/27/19 09:03 Guaifenesin (Robitussin) 200 mg Q4H PRN ORAL FOR COUGH 07/24/19 17:00 08/19/19 16:59 Insulin Aspart (NovoLOG) BEFORE MEALS AND HS SUBQ 07/24/19 21:00 08/15/19 11:29 07/26/19 20:03 Levalbuterol HCl (Xopenex) 1.25 mg Q4HRT HHN 07/26/19 23:00 07/31/19 22:59 07/27/19 10:27 Levalbuterol HCl (Xopenex) 1.25 mg Q4HRT PRN HHN Shortness of Breath 07/26/19 18:52 07/31/19 18:51 Lorazepam (Ativan) 0.5 mg Q6H PRN ORAL For Anxiety 07/24/19 17:00 07/27/19 16:59 Memantine (Namenda) 5 mg BID ORAL 07/24/19 18:00 08/15/19 08:59 07/27/19 09:04 Mirtazapine (Remeron) 15 mg BEDTIME ORAL 07/24/19 21:00 08/15/19 20:59 07/26/19 20:01 Naloxone HCl (Narcan) 0.1 mg PRN PRN IV Sedation scale 3 or 4 07/24/19 17:00 08/23/19 16:59 Ondansetron HCl (Zofran) 4 mg Q4H PRN IVP Nausea & Vomiting 07/24/19 17:00 08/21/19 16:59 07/24/19 17:20 Pantoprazole (Protonix) 40 mg BEFORE BREAKFAST ORAL 07/25/19 06:30 08/16/19 06:29 07/27/19 05:36 Piperacillin Sod/ Tazobactam Sod 3.375 gm/Sodium Chloride 110 ml @ 27.5 mls/hr Q8H IVPB 07/26/19 20:00 08/02/19 19:59 07/27/19 03:13 Polyethylene Glycol (Miralax) 17 gm DAILYPRN PRN ORAL Constipation 07/24/19 17:00 08/23/19 16:59 Promethazine HCl/ Codeine (Phenergan with Codeine) 5 ml Q4H PRN ORAL For Cough 07/24/19 17:00 08/19/19 16:59 Sennosides (Senokot) 8.6 mg QHS ORAL 07/24/19 21:00 08/15/19 20:59 07/26/19 20:01 Sertraline HCl (Zoloft) 50 mg DAILY ORAL 07/25/19 09:00 08/15/19 08:59 07/27/19 09:04 Sodium Phosphate (Fleet's Sodium Phosl Enema) 133 ml DAILYPRN PRN RECTAL Constipation 07/24/19 17:00 08/23/19 16:59 Vancomycin HCl (Vanco rx to dose) 1 ea DAILY PRN MISC Per rx protocol 07/26/19 18:00 08/25/19 17:59 Vancomycin/Sodium Chloride 275 ml @ 183.333 mls/hr Q12HR@1100,2300 IVPB 07/26/19 23:00 07/31/19 22:59 07/27/19 10:53 Zolpidem Tartrate (Ambien) 5 mg BEDTIME PRN ORAL Insomnia 07/24/19 21:00 07/27/19 16:16 07/27/19 00:11 Ange Grant M.D. Jul 27, 2019 11:07
[2019-07-27] MEDS: HYDROcodone/Acetamin 7.5/325 tab ORAL PRN (11:34)
[2019-07-27] MEDS ORDERED: HYDROcodone/Acetamin 10/325 tab ORAL PRN (12:00)
--- NOTE | 2019-07-27 12:36 | Pulmonology Progress Note ---
Assessment/Plan Problems: (1) Collapse of left lung (2) COPD (chronic obstructive pulmonary disease) (3) Peripheral edema (4) MELVIN (obstructive sleep apnea) (5) Schizophrenia (6) Morbid obesity (7) HTN (hypertension) (8) Hypothyroidism Assessment/Plan left chest in partially open needs to stay in [facility] on laxis, check BNP, watch bun/creatinine daily I/O balance - 7.6 liters respiratory treatment continue supplemental oxygen symptomatic treatment titrate fio2 to sat of 92% pt is so heavy that it is difficult for her to stay on her left side Subjective ROS Limited/Unobtainable: No Constitutional: Reports: no symptoms HEENT: Repors: no symptoms Respiratory: Reports: no symptoms Allergies: Coded Allergies: HALOPERIDOL (Verified Allergy, Unknown, 06/16/17) Objective Last 24 Hour Vital Signs Date Time Temp Pulse Resp B/P (MAP) Pulse Ox O2 Delivery O2 Flow Rate FiO2 07/27/19 12:00 Venturi Mask 10.0 07/27/19 11:02 97.0 101 20 110/78 (89) 96 07/27/19 10:33 104 20 98 Venturi Mask 10.0 45 101 24 96 07/27/19 10:23 101 22 99 Venturi Mask 10.0 45 108 24 96 07/27/19 09:07 109 122/65 07/27/19 08:00 97.3 98 20 110/64 (79) 96 07/27/19 08:00 Venturi Mask 10.0 07/27/19 07:58 108 22 97 Venturi Mask 10.0 45 100 22 96 07/27/19 07:50 103 07/27/19 07:43 96 07/27/19 07:43 96 Venturi Mask 10.0 45 07/27/19 04:00 Venturi Mask 10.0 07/27/19 04:00 98.1 98 20 123/66 (85) 97 07/27/19 04:00 10.0 45 07/27/19 03:39 103 07/27/19 03:05 90 20 98 Venturi Mask 10.0 45 07/27/19 02:55 92 20 95 Venturi Mask 10.0 45 07/27/19 00:00 10.0 45 07/27/19 00:00 Venturi Mask 10.0 07/27/19 00:00 99.1 95 24 108/68 (81) 95 07/26/19 23:31 100 20 98 Venturi Mask 10.0 45 07/26/19 23:31 100 20 98 Venturi Mask 10.0 45 07/26/19 23:29 107 07/26/19 23:16 95 20 97 Venturi Mask 10.0 45 07/26/19 23:16 95 20 97 Venturi Mask 10.0 45 07/26/19 22:06 102 20 99 Venturi Mask 10.0 45 07/26/19 21:56 91 20 97 Venturi Mask 10.0 45 07/26/19 20:00 98.0 90 22 109/62 (78) 98 07/26/19 20:00 Venturi Mask 10.0 07/26/19 20:00 97 109/62 07/26/19 20:00 10.0 45 07/26/19 19:37 99 Venturi Mask 10.0 40 07/26/19 19:02 105 07/26/19 18:53 110 20 139/63 (88) 95 07/26/19 18:30 101 20 124/67 (86) 95 07/26/19 17:12 96 135/65 07/26/19 16:00 101 07/26/19 16:00 98.6 96 20 135/65 (88) 96 07/26/19 16:00 Venturi Mask 10.0 Intake and Output 07/26/19 07/27/19 19:00 07:00 Intake Total 1100 ml 531.666 ml Output Total 1100 ml 1000 ml Balance 0 ml -468.334 ml Intake Oral 1100 ml IV Total 531.666 ml Output Urine Total 1100 ml 1000 ml General Appearance: WD/WN HEENT: normocephalic, atraumatic Respiratory/Chest: chest wall non-tender, lungs clear, crackles/rales Cardiovascular: normal peripheral pulses, normal rate Abdomen: normal bowel sounds, no organomegaly Genitourinary: normal external genitalia Skin: no rash Microbiology Date/Time Source Procedure Growth Status 07/26/19 20:45 Sputum Induced Gram Stain - Final Resulted 07/26/19 20:45 Sputum Induced Sputum Culture Pending Resulted Laboratory Tests 07/27/19 06:00: White Blood Count 11.4H, Red Blood Count 4.17L, Hemoglobin 12.4, Hematocrit 37.1 , Mean Corpuscular Volume 89, Mean Corpuscular Hemoglobin 29.8, Mean Corpuscular Hemoglobin Concent 33.5, Red Cell Distribution Width 13.4, Platelet Count 259, Mean Platelet Volume 5.0L, Neutrophils (%) (Auto) 77.6H, Lymphocytes (%) (Auto) 15.4L, Monocytes (%) (Auto) 5.5, Eosinophils (%) (Auto) 0.3, Basophils (%) (Auto) 1.3, Sodium Level 138, Potassium Level 3.9, Chloride Level 96L, Carbon Dioxide Level 32, Anion Gap 10, Blood Urea Nitrogen 9, Creatinine 0.7, Estimat Glomerular Filtration Rate > 60, Glucose Level 109H, Calcium Level 9.4, Total Bilirubin 0.4, Aspartate Amino Transf (AST/SGOT) 23, Alanine Aminotransferase (ALT/SGPT) 25, Alkaline Phosphatase 95, Pro-B-Type Natriuretic Peptide 328H, Total Protein 6.7, Albumin 2.8L, Globulin 3.9, Albumin/Globulin Ratio 0.7L Current Medications Medications (Trade) Dose Ordered Sig/Marleni Route PRN Reason Start Time Stop Time Status Last Admin Dose Admin Acetaminophen (Tylenol) 650 mg Q6H PRN ORAL Mild Pain/Temp > 100.5 07/24/19 17:00 08/19/19 16:59 Acetaminophen/ Hydrocodone Bitart ([place] 10/325) 1 tab Q6H PRN ORAL Severe Pain (Pain Scale 7-10) 07/27/19 12:00 08/03/19 11:59 Acetaminophen/ Hydrocodone Bitart ([place] 5/325) 1 tab Q6H PRN ORAL Moderate Pain (Pain Scale 4-6) 07/26/19 10:00 07/29/19 09:59 07/26/19 18:29 Acetazolamide (Diamox) 250 mg TWICE A DAY ORAL 07/24/19 18:00 08/22/19 17:59 07/27/19 09:04 Acetylcysteine (Mucomyst) 400 mg Q8HRT INH 07/24/19 23:00 08/15/19 07:29 07/27/19 07:43 Aspirin (ASA) 81 mg DAILY ORAL 07/25/19 09:00 08/15/19 08:59 07/27/19 09:04 Budesonide (Pulmicort) 0.5 mg Q12HRT HHN 07/24/19 22:00 08/15/19 09:59 07/27/19 10:13 Dextrose (Dextrose 50%) 25 ml Q30M PRN IV Hypoglycemia 07/24/19 17:00 08/15/19 07:29 Dextrose (Dextrose 50%) 50 ml Q30M PRN IV Hypoglycemia 07/24/19 17:00 08/15/19 07:29 Diltiazem HCl (Cardizem) 60 mg QID ORAL 07/24/19 18:00 08/20/19 12:59 07/27/19 09:07 Docusate Sodium (Colace) 100 mg TWICE A DAY ORAL 07/24/19 18:00 08/15/19 08:59 07/27/19 09:04 Enoxaparin Sodium (Lovenox) 40 mg DAILY SUBQ 07/25/19 09:00 08/18/19 08:59 07/27/19 09:06 Gabapentin (Neurontin) 300 mg THREE TIMES A DAY ORAL 07/24/19 18:00 08/15/19 08:59 07/27/19 09:03 Guaifenesin (Robitussin) 200 mg Q4H PRN ORAL FOR COUGH 07/24/19 17:00 08/19/19 16:59 Insulin Aspart (NovoLOG) BEFORE MEALS AND HS SUBQ 07/24/19 21:00 08/15/19 11:29 07/27/19 11:42 Levalbuterol HCl (Xopenex) 1.25 mg Q4HRT HHN 07/26/19 23:00 07/31/19 22:59 07/27/19 10:27 Levalbuterol HCl (Xopenex) 1.25 mg Q4HRT PRN HHN Shortness of Breath 07/26/19 18:52 07/31/19 18:51 Lorazepam (Ativan) 0.5 mg Q6H PRN ORAL For Anxiety 07/24/19 17:00 07/27/19 16:59 Memantine (Namenda) 5 mg BID ORAL 07/24/19 18:00 08/15/19 08:59 07/27/19 09:04 Mirtazapine (Remeron) 15 mg BEDTIME ORAL 07/24/19 21:00 08/15/19 20:59 07/26/19 20:01 Naloxone HCl (Narcan) 0.1 mg PRN PRN IV Sedation scale 3 or 4 07/24/19 17:00 08/23/19 16:59 Ondansetron HCl (Zofran) 4 mg Q4H PRN IVP Nausea & Vomiting 07/24/19 17:00 08/21/19 16:59 07/24/19 17:20 Pantoprazole (Protonix) 40 mg BEFORE BREAKFAST ORAL 07/25/19 06:30 08/16/19 06:29 07/27/19 05:36 Piperacillin Sod/ Tazobactam Sod 3.375 gm/Sodium Chloride 110 ml @ 27.5 mls/hr Q8H IVPB 07/26/19 20:00 08/02/19 19:59 07/27/19 03:13 Polyethylene Glycol (Miralax) 17 gm DAILYPRN PRN ORAL Constipation 07/24/19 17:00 08/23/19 16:59 Promethazine HCl/ Codeine (Phenergan with Codeine) 5 ml Q4H PRN ORAL For Cough 07/24/19 17:00 08/19/19 16:59 Sennosides (Senokot) 8.6 mg QHS ORAL 07/24/19 21:00 08/15/19 20:59 07/26/19 20:01 Sertraline HCl (Zoloft) 50 mg DAILY ORAL 07/25/19 09:00 08/15/19 08:59 07/27/19 09:04 Sodium Phosphate (Fleet's Sodium Phosl Enema) 133 ml DAILYPRN PRN RECTAL Constipation 07/24/19 17:00 08/23/19 16:59 Vancomycin HCl (Vanco rx to dose) 1 ea DAILY PRN MISC Per rx protocol 07/26/19 18:00 08/25/19 17:59 Vancomycin/Sodium Chloride 275 ml @ 183.333 mls/hr Q12HR@1100,2300 IVPB 07/26/19 23:00 07/31/19 22:59 07/27/19 10:53 Zolpidem Tartrate (Ambien) 5 mg BEDTIME PRN ORAL Insomnia 07/24/19 21:00 07/27/19 16:16 07/27/19 00:11 Fartun Gan MD Jul 27, 2019 12:36
--- NOTE | 2019-07-27 14:45 | Progress Note ---
DATE: 07/27/2019 SUBJECTIVE: This is a 73-year-old female patient with cough and back pain. She is also noted to have confusion and decline in cognition below her baseline. That is why her attending physician has requested daily psychiatric consultation. MENTAL STATUS EXAMINATION: This is a 73-year-old female. Appearance is disheveled. Attitude, irritable and agitated. Affect, guarded and restricted. Intellect, poor. Mood, depressed and anxious. Motor activity, psychomotor agitation. Attention span is poor. Orientation x2. Speech is pressured. Thought process, disorganized thoughts and illogical. Insight and judgment is poor. DIAGNOSIS: Major depressive disorder, mild, recurrent with psychotic features, rule out dementia with psychosis. PLAN: Continue treatment with psychotropic medications to stabilize her mood. Provided with 20 minutes of cognitive behavioral therapy to help identify to her automatic negative thoughts and help her convert negative thoughts to more positive thoughts to reduce depression, anxiety, and mood lability. 20 minutes of cognitive behavioral therapy provided. Chart reviewed. Discussed with staff. Seen and assessed at bedside. Filipe Yen M.D. DR: JOSE JUAN JOB#: [id number] CC:
[2019-07-27 16:00] VITALS: BP 136/68
--- NOTE | 2019-07-27 16:00 | NUR ---
DISCHARGE PLANNING: NOTE CLINICALS FAXED TO [facility] AND [facility] @ [facility] IS WILLING TO ACCEPT THIS PATIENT CLINICALLY. DR JEAN TO ACCEPT AT [facility] IF BED IS AVAILABLE. AWAITING FINANCIAL APPROVAL AWAITING RESPONSE FROM [facility] @ [facility] IS AGREEABLE TO DC PLAN
--- NOTE | 2019-07-27 18:26 | NUR ---
NURSE NOTES: Dr. Nash at nurse station and ordered STAT thoracic x-ray, myelogram of lumbar spine, and myelogram of thoracic spine. Noted.
--- NOTE | 2019-07-27 18:48 | NUR ---
NURSE NOTES: Per Checo of radiology, patient needs to be standing up for Thoracic spine x-ray. Patient is unable to stand for x-ray, Dr. Nash at nurse station and made aware. Dr. Nash cancelled Thoracic spine x-ray.
--- NOTE | 2019-07-27 19:30 | NUR ---
HAND-OFF: Report given to JAMEE Meyer.
--- NOTE | 2019-07-27 19:59 | NUR ---
NURSE NOTES: Received report from Magdiel RN, pt. in bed awake- A/O x's 4-able to make needs known, no signs or symptoms of acute cardiac or respiratory distress noted, call light within easy reach, bed alarm on, side rails up x's3 and safety brakes engaged, pt. appears to be resting comfortably in bed watching television, pt. appears to be sating well on Venturi mask 10L Fio2 at 45%- no distress noted, Huertas intact and draining to gravity, HOB elevated, suction at bed side, SARAH 20G IV intact and patent, safety measures continued, will continue with plan of care.
[2019-07-27 20:00] VITALS: BP 137/67
[2019-07-27] MEDS: Sennosides 8.6mg tab ORAL SCH (20:21)
--- NOTE | 2019-07-27 20:58 | General Progress Note ---
Assessment/Plan Problem List: (1) CAD (coronary artery disease) ICD Codes: I25.10 - Atherosclerotic heart disease of [place] coronary artery without angina pectoris SNOMED: 66203912 (2) Schizophrenia ICD Codes: F20.9 - Schizophrenia, unspecified SNOMED: 31230625 (3) Morbid obesity ICD Codes: E66.01 - Morbid (severe) obesity due to excess calories SNOMED: 766670927 (4) COPD (chronic obstructive pulmonary disease) ICD Codes: J44.9 - Chronic obstructive pulmonary disease, unspecified SNOMED: 76334532 (5) Hypothyroidism ICD Codes: E03.9 - Hypothyroidism, unspecified SNOMED: 33051805 (6) Peripheral edema ICD Codes: R60.9 - Edema, unspecified SNOMED: 345445322 (7) Chest pain ICD Codes: R07.9 - Chest pain, unspecified SNOMED: 07615927 (8) MELVIN (obstructive sleep apnea) ICD Codes: G47.33 - Obstructive sleep apnea (adult) (pediatric) SNOMED: 48310547 (9) HTN (hypertension) ICD Codes: I10 - Essential (primary) hypertension SNOMED: 63441961 Status: progressing Assessment/Plan: obesity edema atypical cp cad hypothyroid check labs Subjective ROS Limited/Unobtainable: Yes Allergies: Coded Allergies: HALOPERIDOL (Verified Allergy, Unknown, 06/16/17) Objective Last 24 Hour Vital Signs Date Time Temp Pulse Resp B/P (MAP) Pulse Ox O2 Delivery O2 Flow Rate FiO2 07/27/19 20:22 92 139/68 07/27/19 19:13 103 23 95 Venturi Mask 10.0 45 98 23 94 07/27/19 19:07 95 Venturi Mask 10.0 45 07/27/19 17:19 101 136/68 07/27/19 16:00 93 07/27/19 16:00 Venturi Mask 10.0 07/27/19 16:00 97.7 101 20 136/68 (90) 95 07/27/19 15:00 82 24 98 Venturi Mask 10.0 45 86 25 94 07/27/19 12:56 102 112/72 07/27/19 12:00 113 07/27/19 12:00 Venturi Mask 10.0 07/27/19 11:02 97.0 101 20 110/78 (89) 96 07/27/19 10:33 104 20 98 Venturi Mask 10.0 45 101 24 96 07/27/19 10:23 101 22 99 Venturi Mask 10.0 45 108 24 96 07/27/19 09:07 109 122/65 07/27/19 08:00 97.3 98 20 110/64 (79) 96 07/27/19 08:00 Venturi Mask 10.0 07/27/19 07:58 108 22 97 Venturi Mask 10.0 45 100 22 96 07/27/19 07:50 103 07/27/19 07:43 96 07/27/19 07:43 96 Venturi Mask 10.0 45 07/27/19 04:00 Venturi Mask 10.0 07/27/19 04:00 98.1 98 20 123/66 (85) 97 07/27/19 04:00 10.0 45 07/27/19 03:39 103 07/27/19 03:05 90 20 98 Venturi Mask 10.0 45 07/27/19 02:55 92 20 95 Venturi Mask 10.0 45 07/27/19 00:00 10.0 45 07/27/19 00:00 Venturi Mask 10.0 07/27/19 00:00 99.1 95 24 108/68 (81) 95 07/26/19 23:31 100 20 98 Venturi Mask 10.0 45 07/26/19 23:31 100 20 98 Venturi Mask 10.0 45 07/26/19 23:29 107 07/26/19 23:16 95 20 97 Venturi Mask 10.0 45 07/26/19 23:16 95 20 97 Venturi Mask 10.0 45 07/26/19 22:06 102 20 99 Venturi Mask 10.0 45 07/26/19 21:56 91 20 97 Venturi Mask 10.0 45 Intake and Output 07/26/19 07/27/19 19:00 07:00 Intake Total 1100 ml 531.666 ml Output Total 1100 ml 1000 ml Balance 0 ml -468.334 ml Intake Oral 1100 ml IV Total 531.666 ml Output Urine Total 1100 ml 1000 ml Laboratory Tests 07/27/19 06:00: White Blood Count 11.4H, Red Blood Count 4.17L, Hemoglobin 12.4, Hematocrit 37.1 , Mean Corpuscular Volume 89, Mean Corpuscular Hemoglobin 29.8, Mean Corpuscular Hemoglobin Concent 33.5, Red Cell Distribution Width 13.4, Platelet Count 259, Mean Platelet Volume 5.0L, Neutrophils (%) (Auto) 77.6H, Lymphocytes (%) (Auto) 15.4L, Monocytes (%) (Auto) 5.5, Eosinophils (%) (Auto) 0.3, Basophils (%) (Auto) 1.3, Sodium Level 138, Potassium Level 3.9, Chloride Level 96L, Carbon Dioxide Level 32, Anion Gap 10, Blood Urea Nitrogen 9, Creatinine 0.7, Estimat Glomerular Filtration Rate > 60, Glucose Level 109H, Calcium Level 9.4, Total Bilirubin 0.4, Aspartate Amino Transf (AST/SGOT) 23, Alanine Aminotransferase (ALT/SGPT) 25, Alkaline Phosphatase 95, Pro-B-Type Natriuretic Peptide 328H, Total Protein 6.7, Albumin 2.8L, Globulin 3.9, Albumin/Globulin Ratio 0.7L Height (Feet): 5 Height (Inches): 5.00 Weight (Pounds): 309 Cardiovascular: regular rhythm Respiratory/Chest: rhonchi - bilaterally Kate Joe MD Jul 27, 2019 20:58
--- NOTE | 2019-07-27 21:00 | NUR ---
NURSE NOTES: per Giorgi in radiology for pt. having Myelogram lumbar and thoracic spine - pt. needs consent and PTT and INR. Pt. does not need to be NPO.
--- NOTE | 2019-07-27 22:02 | Progress Note ---
DATE: 07/27/2019 SUBJECTIVE: Apparently, the patient could not be moved to another hospital. I talked to the person who handles transfers on Wednesday or so. The patient still has back pain, in her shoulders, and it comes around the lower abdomen area. She is not moving either leg. There is no change in pain. It is sharp and aggravated by coughing. The patient also has pneumonia in the left lower lobe and mild interstitial congestion in the right lung, which is unchanged. There are old healed rib fracture deformities demonstrated on the left. The patient's sedimentation rate was 90 on 07/21/2019. She did have a drop in her white count on 07/21/2019, but it is going up again beginning on 07/25/2019. Platelets are normal. She is still mildly anemic. The patient is on vancomycin, piperacillin/tazobactam, hydrocodone for pain, mirtazapine, insulin, memantine 5 mg. PHYSICAL EXAMINATION: VITAL SIGNS: The temperature is 97.7 degrees, respiration rate is 20, blood pressure is 136/68, pulse rate 101. MENTAL STATUS: Unchanged. She is alert and awake. Cannot give a history. CRANIAL NERVE EXAMINATION: Cranial nerves II through XII remain unchanged from previous reports. MUSCLE EXAMINATION: Muscle bulk is impossible to tell. Tone is normal in the upper extremities, difficult to evaluate in the lower extremities, decreased. Strength is 5/5 in the upper extremities, 0/5 on the lower extremities. REFLEXES: 0 in the upper and lower extremities with upgoing toes on testing for Babinski response. COORDINATION: [id number] was basically intact. SENSORY EXAMINATION: It is difficult to get a level on her, but she may have mid thoracic level to pinprick. IMPRESSION: The patient has myelopathy most likely. I could not examine her back. When they tried to get a myelogram on this patient, though there is some risk to it where she has a significant block in the mid thoracic level. Assuming she does not have an epidural abscess, she could have osteoporosis with vertebral compression with cord compression, multiple myeloma with cord compression, although her calciums are normal and the globulin is normal B12 is within the normal range. PLAN: 1. X-ray of the thoracic spine if possible. 2. Myelogram of thoracic spine if possible. Samir MD Charity DR: RADHA JOB#: [id number] CC:
[2019-07-28] VITALS (7 sets, daily range): BP systolic 90–124; BP diastolic 59–71
[2019-07-28] MEDS: Levalbuterol Inh UD 1.25mg/0.5ml HHN SCH ×6 (02:57→23:08)
[2019-07-28] MEDS: Piperacillin/Tazobactam 3.375 GM in NS 110 ML IVPB SCH ×3 (03:12→20:19)
[2019-07-28 04:09] LABS: BASOPHILS % (AUTO) 1.2 % (0.0-2.0); HEMATOCRIT 34.2 % (37.0-47.0); HEMOGLOBIN 11.7 G/DL (12.0-16.0); LYMPHOCYTES % (AUTO) 16.1 % (20.0-45.0); MEAN CORPUSCULAR VOLUME 87 FL (80-99); MONOCYTES % (AUTO) 6.2 % (1.0-10.0); NEUTROPHILS % (AUTO) 76.5 % (45.0-75.0); PLATELET COUNT 270 K/UL (150-450); RED BLOOD COUNT 3.95 M/UL (4.20-5.40); RED CELL DISTRIBUTION WIDTH 13.3 % (11.6-14.8); WHITE BLOOD COUNT 9.4 K/UL (4.8-10.8)
[2019-07-28 04:35] LABS: ALANINE AMINOTRANSFERASE 17 U/L (12-78); ALBUMIN 2.5 G/DL (3.4-5.0); ALBUMIN/GLOBULIN RATIO 0.7 (1.0-2.7); ALKALINE PHOSPHATASE 84 U/L (46-116); ANION GAP 6 mmol/L (5-15); ASPARTATE AMINO TRANSFERASE 13 U/L (15-37); BILIRUBIN,TOTAL 0.4 MG/DL (0.2-1.0); BLOOD UREA NITROGEN 9 mg/dL (7-18); CALCIUM 9.4 MG/DL (8.5-10.1); CARBON DIOXIDE 33 MMOL/L (21-32); CHLORIDE 100 MMOL/L (98-107); CREATININE 0.5 MG/DL (0.55-1.30); POTASSIUM 3.2 MMOL/L (3.5-5.1); SODIUM 139 MMOL/L (136-145)
[2019-07-28] MEDS: NovoLOG Insulin Flexpen SUBQ SCH ×4 (05:31→20:25)
--- NOTE | 2019-07-28 06:58 | NUR ---
HAND-OFF: Report given to Allison RN, pt. remains stable and no signs or symptoms of acute distress noted- aware to f/u on abnormal labs.
--- NOTE | 2019-07-28 06:59 | NUR ---
NURSE NOTES: Received patient in bed. On bipap, Fio2 of 45%. Patient is awake, alert, verbal, call light within reach. No respiratory distress. Huertas cath inplace. Contact isolation observed. Will continue plan of care.
--- NOTE | 2019-07-28 08:28 | NUR ---
NURSE NOTES: Dr. Nash at bedside. And he said that patient is not stable for myelogram right now. Patient is on bipap with fio2 60%.
[2019-07-28] MEDS: Enoxaparin 40mg Inj SUBQ SCH (09:00)
[2019-07-28] MEDS: dilTIAZem HCl 60mg tab ORAL SCH ×4 (09:00→20:21)
[2019-07-28] MEDS: Docusate 100mg cap ORAL SCH ×2 (09:32→17:36)
[2019-07-28] MEDS: Aspirin Baby 81mg ORAL SCH (09:33)
[2019-07-28] MEDS: Sertraline 50mg tab ORAL SCH (09:33)
[2019-07-28] MEDS: Memantine 5 MG TAB ORAL SCH ×2 (09:33→17:36)
--- NOTE | 2019-07-28 09:34 | General Progress Note ---
Assessment/Plan Assessment/Plan: (1) Morbid obesity (2) Back pain (3) Peripheral neuropathy (4) COPD (5) CHF Patient will be continued on [place] D/w Dr. Hicks and he concurred. Subjective Date patient seen: Jul 28, 2019 Time patient seen: 09:15 - am Allergies: Coded Allergies: HALOPERIDOL (Verified Allergy, Unknown, 06/16/17) Subjective Constitutional: Reports: weakness HEENT: Reports: no symptoms Cardiovascular: Reports: no symptoms Respiratory: Reports: shortness of breath Gastrointestinal/Abdominal: Reports: no symptoms Genitourinary: Reports: no symptoms Neurologic/Psychiatric: Reports: no symptoms Endocrine: Reports: no symptoms Hematologic/Lymphatic: Reports: no symptoms Subjective Patient in SDU. Patient continues to c/o pain. The [place] was increased to 10/325mg PO 1 tab Q6H PRN. Was waiting for transfer to another hospital for imaging but was not done, due to this Neurologist who is trying to r/o myelopathy in thoracic spine has ordered an Xray of T spine and myelogram due to patient being to heavy of MRI or CT scan She has no new complaints at this time. Objective Last 24 Hour Vital Signs Date Time Temp Pulse Resp B/P (MAP) Pulse Ox O2 Delivery O2 Flow Rate FiO2 07/28/19 09:20 88 24 94 60 07/28/19 08:05 60 07/28/19 08:00 Bi-pap 07/28/19 07:50 45 07/28/19 07:44 109 24 96 45 07/28/19 07:32 109 24 96 Venturi Mask 10.0 45 100 24 94 07/28/19 07:31 94 Venturi Mask 10.0 45 07/28/19 06:35 10.0 45 07/28/19 06:00 108/63 (78) 07/28/19 05:52 45 07/28/19 05:01 86 18 94 45 07/28/19 04:00 99.0 88 18 124/64 (84) 96 07/28/19 04:00 45 07/28/19 04:00 Venturi Mask 10.0 07/28/19 03:43 93 07/28/19 03:17 83 18 97 45 07/28/19 02:58 93 22 96 Venturi Mask 10.0 45 89 22 95 07/28/19 01:35 45 07/28/19 00:00 10.0 45 07/28/19 00:00 Venturi Mask 10.0 07/28/19 00:00 98.0 107 22 121/71 (88) 96 07/27/19 23:49 102 20 94 Venturi Mask 10.0 45 100 20 92 07/27/19 23:39 102 20 94 Venturi Mask 10.0 45 100 20 92 07/27/19 23:32 93 07/27/19 21:14 105 22 99 Venturi Mask 10.0 45 104 22 96 07/27/19 20:22 92 139/68 07/27/19 20:00 Venturi Mask 10.0 07/27/19 20:00 10.0 45 07/27/19 20:00 98.6 89 22 137/67 (90) 97 07/27/19 19:13 103 23 95 Venturi Mask 10.0 45 98 23 94 07/27/19 19:09 90 07/27/19 19:07 95 Venturi Mask 10.0 45 07/27/19 17:19 101 136/68 07/27/19 16:00 93 07/27/19 16:00 Venturi Mask 10.0 07/27/19 16:00 97.7 101 20 136/68 (90) 95 07/27/19 15:00 82 24 98 Venturi Mask 10.0 45 86 25 94 07/27/19 12:56 102 112/72 07/27/19 12:00 113 07/27/19 12:00 Venturi Mask 10.0 07/27/19 11:02 97.0 101 20 110/78 (89) 96 07/27/19 10:33 104 20 98 Venturi Mask 10.0 45 101 24 96 07/27/19 10:23 101 22 99 Venturi Mask 10.0 45 108 24 96 Intake and Output 07/27/19 07/28/19 19:00 07:00 Intake Total 800 ml 586.666 ml Output Total 1000 ml 1300 ml Balance -200 ml -713.334 ml Intake Oral 800 ml IV Total 586.666 ml Output Urine Total 1000 ml 1300 ml Laboratory Tests 07/28/19 03:50: White Blood Count 9.4, Red Blood Count 3.95L, Hemoglobin 11.7L, Hematocrit 34.2L , Mean Corpuscular Volume 87, Mean Corpuscular Hemoglobin 29.6, Mean Corpuscular Hemoglobin Concent 34.2, Red Cell Distribution Width 13.3, Platelet Count 270, Mean Platelet Volume 5.1L, Neutrophils (%) (Auto) 76.5H, Lymphocytes (%) (Auto) 16.1L, Monocytes (%) (Auto) 6.2, Eosinophils (%) (Auto) 0.0, Basophils (%) (Auto) 1.2, Prothrombin Time 10.3, Prothromb Time International Ratio 1.0, Activated Partial Thromboplast Time 30, Sodium Level 139, Potassium Level 3.2L, Chloride Level 100, Carbon Dioxide Level 33H, Anion Gap 6, Blood Urea Nitrogen 9, Creatinine 0.5L, Estimat Glomerular Filtration Rate > 60, Glucose Level 147H, Calcium Level 9.4, Total Bilirubin 0.4, Aspartate Amino Transf (AST/SGOT) 13L, Alanine Aminotransferase (ALT/SGPT) 17, Alkaline Phosphatase 84, Pro-B-Type Natriuretic Peptide 384H, Total Protein 6.3L, Albumin 2.5L, Globulin 3.8, Albumin/Globulin Ratio 0.7L Height (Feet): 5 Height (Inches): 5.00 Weight (Pounds): 309 Objective General Appearance: no apparent distress, alert EENT: PERRL/EOMI, normal ENT inspection Neck: non-tender, normal alignment Cardiovascular: normal rate, regular rhythm Respiratory/Chest: decreased breath sounds Abdomen: non tender, soft Edema: mild edema Neurologic: alert, oriented x 3 Skin: warm/dry David Odom Jul 28, 2019 09:34
--- NOTE | 2019-07-28 10:11 | Pulmonology Progress Note ---
Assessment/Plan Problems: (1) Collapse of left lung (2) COPD (chronic obstructive pulmonary disease) (3) Peripheral edema (4) MELVIN (obstructive sleep apnea) (5) Schizophrenia (6) Morbid obesity (7) HTN (hypertension) (8) Hypothyroidism Assessment/Plan left lung continues to improve needs to stay in [facility] on laxis, check BNP, watch bun/creatinine daily I/O balance - 8.5 liters incentive spirometry respiratory treatment continue supplemental oxygen symptomatic treatment titrate fio2 to sat of 92% pt is so heavy that it is difficult for her to stay on her left side Subjective ROS Limited/Unobtainable: No Interval Events: less short of breath Allergies: Coded Allergies: HALOPERIDOL (Verified Allergy, Unknown, 06/16/17) Objective Last 24 Hour Vital Signs Date Time Temp Pulse Resp B/P (MAP) Pulse Ox O2 Delivery O2 Flow Rate FiO2 07/28/19 09:20 88 24 94 60 07/28/19 09:00 98.1 95 22 90/59 (69) 95 07/28/19 08:05 60 07/28/19 08:00 Bi-pap 07/28/19 07:50 45 07/28/19 07:44 109 24 96 45 07/28/19 07:32 109 24 96 Venturi Mask 10.0 45 100 24 94 07/28/19 07:31 94 Venturi Mask 10.0 45 07/28/19 06:35 10.0 45 07/28/19 06:00 108/63 (78) 07/28/19 05:52 45 07/28/19 05:01 86 18 94 45 07/28/19 04:00 99.0 88 18 124/64 (84) 96 07/28/19 04:00 45 07/28/19 04:00 Venturi Mask 10.0 07/28/19 03:43 93 07/28/19 03:17 83 18 97 45 07/28/19 02:58 93 22 96 Venturi Mask 10.0 45 89 22 95 07/28/19 01:35 45 07/28/19 00:00 10.0 45 07/28/19 00:00 Venturi Mask 10.0 07/28/19 00:00 98.0 107 22 121/71 (88) 96 07/27/19 23:49 102 20 94 Venturi Mask 10.0 45 100 20 92 07/27/19 23:39 102 20 94 Venturi Mask 10.0 45 100 20 92 07/27/19 23:32 93 07/27/19 21:14 105 22 99 Venturi Mask 10.0 45 104 22 96 07/27/19 20:22 92 139/68 07/27/19 20:00 Venturi Mask 10.0 07/27/19 20:00 10.0 45 07/27/19 20:00 98.6 89 22 137/67 (90) 97 07/27/19 19:13 103 23 95 Venturi Mask 10.0 45 98 23 94 07/27/19 19:09 90 07/27/19 19:07 95 Venturi Mask 10.0 45 07/27/19 17:19 101 136/68 07/27/19 16:00 93 07/27/19 16:00 Venturi Mask 10.0 07/27/19 16:00 97.7 101 20 136/68 (90) 95 07/27/19 15:00 82 24 98 Venturi Mask 10.0 45 86 25 94 07/27/19 12:56 102 112/72 07/27/19 12:00 113 07/27/19 12:00 Venturi Mask 10.0 07/27/19 11:02 97.0 101 20 110/78 (89) 96 07/27/19 10:33 104 20 98 Venturi Mask 10.0 45 101 24 96 07/27/19 10:23 101 22 99 Venturi Mask 10.0 45 108 24 96 Intake and Output 07/27/19 07/28/19 19:00 07:00 Intake Total 800 ml 586.666 ml Output Total 1000 ml 1300 ml Balance -200 ml -713.334 ml Intake Oral 800 ml IV Total 586.666 ml Output Urine Total 1000 ml 1300 ml General Appearance: WD/WN HEENT: normocephalic, atraumatic Respiratory/Chest: chest wall non-tender Cardiovascular: normal peripheral pulses, normal rate Abdomen: soft, non tender, no organomegaly Genitourinary: normal external genitalia Skin: no rash Microbiology Date/Time Source Procedure Growth Status 07/26/19 20:45 Sputum Induced Gram Stain - Final Resulted 07/26/19 20:45 Sputum Culture - Preliminary Pseudomonas Species Resulted Laboratory Tests 07/28/19 03:50: White Blood Count 9.4, Red Blood Count 3.95L, Hemoglobin 11.7L, Hematocrit 34.2L , Mean Corpuscular Volume 87, Mean Corpuscular Hemoglobin 29.6, Mean Corpuscular Hemoglobin Concent 34.2, Red Cell Distribution Width 13.3, Platelet Count 270, Mean Platelet Volume 5.1L, Neutrophils (%) (Auto) 76.5H, Lymphocytes (%) (Auto) 16.1L, Monocytes (%) (Auto) 6.2, Eosinophils (%) (Auto) 0.0, Basophils (%) (Auto) 1.2, Prothrombin Time 10.3, Prothromb Time International Ratio 1.0, Activated Partial Thromboplast Time 30, Sodium Level 139, Potassium Level 3.2L, Chloride Level 100, Carbon Dioxide Level 33H, Anion Gap 6, Blood Urea Nitrogen 9, Creatinine 0.5L, Estimat Glomerular Filtration Rate > 60, Glucose Level 147H, Calcium Level 9.4, Total Bilirubin 0.4, Aspartate Amino Transf (AST/SGOT) 13L, Alanine Aminotransferase (ALT/SGPT) 17, Alkaline Phosphatase 84, Pro-B-Type Natriuretic Peptide 384H, Total Protein 6.3L, Albumin 2.5L, Globulin 3.8, Albumin/Globulin Ratio 0.7L Current Medications Medications (Trade) Dose Ordered Sig/Marleni Route PRN Reason Start Time Stop Time Status Last Admin Dose Admin Acetaminophen (Tylenol) 650 mg Q6H PRN ORAL Mild Pain/Temp > 100.5 07/24/19 17:00 08/19/19 16:59 Acetaminophen/ Hydrocodone Bitart ([place] 10/325) 1 tab Q6H PRN ORAL Severe Pain (Pain Scale 7-10) 07/27/19 12:00 08/03/19 11:59 Acetaminophen/ Hydrocodone Bitart ([place] 5/325) 1 tab Q6H PRN ORAL Moderate Pain (Pain Scale 4-6) 07/26/19 10:00 07/29/19 09:59 07/26/19 18:29 Acetazolamide (Diamox) 250 mg TWICE A DAY ORAL 07/24/19 18:00 08/22/19 17:59 07/27/19 17:19 Acetylcysteine (Mucomyst) 400 mg Q8HRT INH 07/24/19 23:00 08/15/19 07:29 07/28/19 07:22 Aspirin (ASA) 81 mg DAILY ORAL 07/25/19 09:00 08/15/19 08:59 07/28/19 09:33 Budesonide (Pulmicort) 0.5 mg Q12HRT HHN 07/24/19 22:00 08/15/19 09:59 07/27/19 21:17 Dextrose (Dextrose 50%) 25 ml Q30M PRN IV Hypoglycemia 07/24/19 17:00 08/15/19 07:29 Dextrose (Dextrose 50%) 50 ml Q30M PRN IV Hypoglycemia 07/24/19 17:00 08/15/19 07:29 Diltiazem HCl (Cardizem) 60 mg QID ORAL 07/24/19 18:00 08/20/19 12:59 07/27/19 20:22 Docusate Sodium (Colace) 100 mg TWICE A DAY ORAL 07/24/19 18:00 08/15/19 08:59 07/28/19 09:32 Enoxaparin Sodium (Lovenox) 40 mg DAILY SUBQ 07/25/19 09:00 08/18/19 08:59 07/27/19 09:06 Gabapentin (Neurontin) 300 mg THREE TIMES A DAY ORAL 07/24/19 18:00 08/15/19 08:59 07/27/19 17:18 Guaifenesin (Robitussin) 200 mg Q4H PRN ORAL FOR COUGH 07/24/19 17:00 08/19/19 16:59 Insulin Aspart (NovoLOG) BEFORE MEALS AND HS SUBQ 07/24/19 21:00 08/15/19 11:29 07/27/19 11:42 Levalbuterol HCl (Xopenex) 1.25 mg Q4HRT HHN 07/26/19 23:00 07/31/19 22:59 07/28/19 07:21 Levalbuterol HCl (Xopenex) 1.25 mg Q4HRT PRN HHN Shortness of Breath 07/26/19 18:52 07/31/19 18:51 Memantine (Namenda) 5 mg BID ORAL 07/24/19 18:00 08/15/19 08:59 07/28/19 09:33 Mirtazapine (Remeron) 15 mg BEDTIME ORAL 07/24/19 21:00 08/15/19 20:59 07/27/19 20:21 Naloxone HCl (Narcan) 0.1 mg PRN PRN IV Sedation scale 3 or 4 07/24/19 17:00 08/23/19 16:59 Ondansetron HCl (Zofran) 4 mg Q4H PRN IVP Nausea & Vomiting 07/24/19 17:00 08/21/19 16:59 07/28/19 05:55 Pantoprazole (Protonix) 40 mg BEFORE BREAKFAST ORAL 07/25/19 06:30 08/16/19 06:29 07/28/19 05:52 Piperacillin Sod/ Tazobactam Sod 3.375 gm/Sodium Chloride 110 ml @ 27.5 mls/hr Q8H IVPB 07/26/19 20:00 08/02/19 19:59 07/28/19 03:12 Polyethylene Glycol (Miralax) 17 gm DAILYPRN PRN ORAL Constipation 07/24/19 17:00 08/23/19 16:59 Promethazine HCl/ Codeine (Phenergan with Codeine) 5 ml Q4H PRN ORAL For Cough 07/24/19 17:00 08/19/19 16:59 Sennosides (Senokot) 8.6 mg QHS ORAL 07/24/19 21:00 08/15/19 20:59 07/27/19 20:21 Sertraline HCl (Zoloft) 50 mg DAILY ORAL 07/25/19 09:00 08/15/19 08:59 07/28/19 09:33 Sodium Phosphate (Fleet's Sodium Phosl Enema) 133 ml DAILYPRN PRN RECTAL Constipation 07/24/19 17:00 08/23/19 16:59 Vancomycin HCl (Vanco rx to dose) 1 ea DAILY PRN MISC Per rx protocol 07/26/19 18:00 08/25/19 17:59 Vancomycin/Sodium Chloride 275 ml @ 183.333 mls/hr Q12HR@1100,2300 IVPB 07/26/19 23:00 07/31/19 22:59 07/27/19 23:34 Fartun Gan MD Jul 28, 2019 10:11
[2019-07-28] MEDS: Budesonide HHN 0.25mg/2ml ud HHN SCH ×2 (10:48→21:34)
--- NOTE | 2019-07-28 11:06 | NUR ---
RADIOLOGY DEPT., CHEST X-RAY DONE.-P.DYE
[2019-07-28] MEDS: Vancomycin 1.25gm/NS Premix q24h IVPB SCH (11:32)
--- NOTE | 2019-07-28 13:12 | Diagnostic Imaging Report ---
Indication: Dyspnea Comparison: 07/27/2019 A single view chest radiograph was obtained. Findings: Pulmonary vascular congestion demonstrated with interstitial edema and prominent central pulmonary vessels. There is evidence of a left pleural effusion which may have improved slightly. There is airspace disease in the left perihilar region which may have improved slightly. The heart is enlarged. IMPRESSION: CHF. Probably no change in this regard Left pleural effusion suspected. Left perihilar infiltrate airspace disease may be related to CHF or superimposed pneumonia.
--- NOTE | 2019-07-28 13:15 | Progress Note ---
DATE: 07/28/2019 SUBJECTIVE: This is a 73-year-old female patient with cough and back pain. She has still mood lability, confused, disorganized, altered mental status. She has no logical plan for her own self-care. That is why, she does require daily psychiatric consultation because her cognition has declined below baseline. So, her attending has requested daily psychiatric consultation. DIAGNOSIS: Major depressive disorder, mild, recurrent with psychotic features. PLAN: My plan for this patient is, I am going to continue treating medication stabilize her mood. A 20 minutes of reality-based supportive psychotherapy provided. A 20 cognitive behavioral therapy is provided to help her identify automatic negative thoughts and help her to convert negative thoughts to more positive thoughts to reduce depression, anxiety, and mood lability. Seen and assessed at bedside. Chart reviewed. Discussed with staff. Filipe Yen M.D. DR: ERIC JOB#: [id number] CC:
--- NOTE | 2019-07-28 13:17 | Cardiology Progress Note ---
Assessment/Plan Assessment/Plan hypertension, hypothyroidism, peripheral neuropathy, lumbar degenerative joint disease, radiculopathy diabetes mellitus COPD multifocal atrial tachycardia hhn oxygen cpap abx ekg echo noted tds dvt ppx pulm toilette dc daimox unless bicarb increased cxrreviweed resume laxis Subjective Cardiovascular: Reports: chest pain - both side with depe breath ; Denies: lightheadedness Respiratory: Reports: cough, shortness of breath Genitourinary: Denies: burning Subjective on bipap Objective Last 24 Hour Vital Signs Date Time Temp Pulse Resp B/P (MAP) Pulse Ox O2 Delivery O2 Flow Rate FiO2 07/28/19 11:12 92 18 93 Bi-Pap 60 77 18 95 07/28/19 11:12 92 21 93 60 07/28/19 10:58 92 18 93 Bi-Pap 60 77 18 95 07/28/19 09:20 88 24 94 60 07/28/19 09:00 98.1 95 22 90/59 (69) 95 07/28/19 09:00 88 90/59 07/28/19 08:05 60 07/28/19 08:00 Bi-pap 07/28/19 07:50 45 07/28/19 07:44 109 24 96 45 07/28/19 07:43 102 07/28/19 07:32 109 24 96 Venturi Mask 10.0 45 100 24 94 07/28/19 07:31 94 Venturi Mask 10.0 45 07/28/19 06:35 10.0 45 07/28/19 06:00 108/63 (78) 07/28/19 05:52 45 07/28/19 05:01 86 18 94 45 07/28/19 04:00 99.0 88 18 124/64 (84) 96 07/28/19 04:00 45 07/28/19 04:00 Venturi Mask 10.0 07/28/19 03:43 93 07/28/19 03:17 83 18 97 45 07/28/19 02:58 93 22 96 Venturi Mask 10.0 45 89 22 95 07/28/19 01:35 45 07/28/19 00:00 10.0 45 07/28/19 00:00 Venturi Mask 10.0 07/28/19 00:00 98.0 107 22 121/71 (88) 96 07/27/19 23:49 102 20 94 Venturi Mask 10.0 45 100 20 92 07/27/19 23:39 102 20 94 Venturi Mask 10.0 45 100 20 92 07/27/19 23:32 93 07/27/19 21:14 105 22 99 Venturi Mask 10.0 45 104 22 96 07/27/19 20:22 92 139/68 07/27/19 20:00 Venturi Mask 10.0 07/27/19 20:00 10.0 45 07/27/19 20:00 98.6 89 22 137/67 (90) 97 07/27/19 19:13 103 23 95 Venturi Mask 10.0 45 98 23 94 07/27/19 19:09 90 07/27/19 19:07 95 Venturi Mask 10.0 45 07/27/19 17:19 101 136/68 07/27/19 16:00 93 07/27/19 16:00 Venturi Mask 10.0 07/27/19 16:00 97.7 101 20 136/68 (90) 95 07/27/19 15:00 82 24 98 Venturi Mask 10.0 45 86 25 94 General Appearance: no apparent distress, alert, patient on isolation Neck: supple Cardiovascular: normal rate Respiratory/Chest: rhonchi - bilaterally Abdomen: normal bowel sounds, non tender, soft Extremities: no swelling Intake and Output 07/27/19 07/28/19 19:00 07:00 Intake Total 800 ml 586.666 ml Output Total 1000 ml 1300 ml Balance -200 ml -713.334 ml Intake Oral 800 ml IV Total 586.666 ml Output Urine Total 1000 ml 1300 ml Laboratory Tests Test 07/28/19 03:50 07/28/19 10:15 White Blood Count 9.4 K/UL (4.8-10.8) Red Blood Count 3.95 M/UL (4.20-5.40) L Hemoglobin 11.7 G/DL (12.0-16.0) L Hematocrit 34.2 % (37.0-47.0) L Mean Corpuscular Volume 87 FL (80-99) Mean Corpuscular Hemoglobin 29.6 PG (27.0-31.0) Mean Corpuscular Hemoglobin Concent 34.2 G/DL (32.0-36.0) Red Cell Distribution Width 13.3 % (11.6-14.8) Platelet Count 270 K/UL (150-450) Mean Platelet Volume 5.1 FL (6.5-10.1) L Neutrophils (%) (Auto) 76.5 % (45.0-75.0) H Lymphocytes (%) (Auto) 16.1 % (20.0-45.0) L Monocytes (%) (Auto) 6.2 % (1.0-10.0) Eosinophils (%) (Auto) 0.0 % (0.0-3.0) Basophils (%) (Auto) 1.2 % (0.0-2.0) Prothrombin Time 10.3 SEC (9.30-11.50) Prothromb Time International Ratio 1.0 (0.9-1.1) Activated Partial Thromboplast Time 30 SEC (23-33) Sodium Level 139 MMOL/L (136-145) Potassium Level 3.2 MMOL/L (3.5-5.1) L Chloride Level 100 MMOL/L (98-107) Carbon Dioxide Level 33 MMOL/L (21-32) H Anion Gap 6 mmol/L (5-15) Blood Urea Nitrogen 9 mg/dL (7-18) Creatinine 0.5 MG/DL (0.55-1.30) L Estimat Glomerular Filtration Rate > 60 mL/min (>60) Glucose Level 147 MG/DL (74-106) H Calcium Level 9.4 MG/DL (8.5-10.1) Total Bilirubin 0.4 MG/DL (0.2-1.0) Aspartate Amino Transf (AST/SGOT) 13 U/L (15-37) L Alanine Aminotransferase (ALT/SGPT) 17 U/L (12-78) Alkaline Phosphatase 84 U/L (46-116) Pro-B-Type Natriuretic Peptide 384 pg/mL (0-125) H Total Protein 6.3 G/DL (6.4-8.2) L Albumin 2.5 G/DL (3.4-5.0) L Globulin 3.8 g/dL Albumin/Globulin Ratio 0.7 (1.0-2.7) L Vancomycin Level Trough 15.6 ug/mL (5.0-12.0) H Microbiology Date/Time Source Procedure Growth Status 07/26/19 20:45 Sputum Induced Gram Stain - Final Resulted 07/26/19 20:45 Sputum Culture - Preliminary Pseudomonas Species Resulted Josesito Paulino MD Jul 28, 2019 13:16
[2019-07-28] MEDS ORDERED: Tubing IV Secondary IV ONE (13:35)
[2019-07-28] MEDS ORDERED: NS 275ml ONE (13:35)
--- NOTE | 2019-07-28 13:52 | Infectious Diseases Prog Note ---
Assessment/Plan Assessment/Plan Assessment: Sepsis, Sp PNA CHF L lung collapse -07/27 CXR: Increasing pleural fluid and parenchymal consolidation/edema on the left,over one day.Stable right-sided interstitial congestion -07/26 sp cx PsA (sensi P) -07/23 CXR: Improved aeration left lung with persistent moderate diffuse alveolar infiltrate suspicious for pneumonia and/or atelectasis. There is unchanged mild superimposed pulmonary edema with improving mild left pleural effusion -07/21 US Chest:No pleural effusion -07/20 CXR: Complete opacification of left hemithorax at least partly due to atelectasis. Some volume loss noted.Congestive heart failure. -07/18 CXR: Suspected left perihilar infiltrate. Correlate clinically. Slightly worsening CH -07/15 CXR: Limited hypoventilatory exam. Prominence of the central bronchovascular structures may be in part due to low lung volumes. -influenza sc neg, sp cx normal resp frank Leukocytosis, recurrent; SP Afebrile REcent Abdominal wall cellulitis (L side) and L mastitis; improving CHF exacerbation Intractable Back pain MELVIN hx of aspiration PNA morbid obesity CAD/NV CHF HTN hypothryoidism hx of abdominal wall cellulitis MDD w/ psychotic features peripheral neuropathy s/p cholecystectomy s/p hysterectomy s/p appendectomy tobacco abuse HLD Dm2 COPD NH resident VRE and MRSA colonized Plan: -Continue empiric Zosyn #3 (abx d #11) and IV Vancomycin #3 for PNA and cellulitis given worsening wbc and pending sp cx -if no gram positive growth, will dc Vanco -07/26 SP Ceftriaxone #9 -2/ SP IV Vancomycin #2 -f/u cx -Monitor CBC/CMP, temperatares -aspiration precautions -Pulm f/u -f/u sp cx Thank you for consulting [facility]. Will continue to follow along with you. Discussed with RN. Subjective Allergies: Coded Allergies: HALOPERIDOL (Verified Allergy, Unknown, 06/16/17) Subjective afebrile leukocytosis resolved on Bipap Objective Vital Signs Last 24 Hour Vital Signs Date Time Temp Pulse Resp B/P (MAP) Pulse Ox O2 Delivery O2 Flow Rate FiO2 07/28/19 12:00 98.2 89 20 115/64 (81) 95 07/28/19 11:12 92 18 93 Bi-Pap 60 77 18 95 07/28/19 11:12 92 21 93 60 07/28/19 10:58 92 18 93 Bi-Pap 60 77 18 95 07/28/19 09:20 88 24 94 60 07/28/19 09:00 98.1 95 22 90/59 (69) 95 07/28/19 09:00 88 90/59 07/28/19 08:05 60 07/28/19 08:00 Bi-pap 07/28/19 07:50 45 07/28/19 07:44 109 24 96 45 07/28/19 07:43 102 07/28/19 07:32 109 24 96 Venturi Mask 10.0 45 100 24 94 07/28/19 07:31 94 Venturi Mask 10.0 45 07/28/19 06:35 10.0 45 07/28/19 06:00 108/63 (78) 07/28/19 05:52 45 07/28/19 05:01 86 18 94 45 07/28/19 04:00 99.0 88 18 124/64 (84) 96 07/28/19 04:00 45 07/28/19 04:00 Venturi Mask 10.0 07/28/19 03:43 93 07/28/19 03:17 83 18 97 45 07/28/19 02:58 93 22 96 Venturi Mask 10.0 45 89 22 95 07/28/19 01:35 45 07/28/19 00:00 10.0 45 07/28/19 00:00 Venturi Mask 10.0 07/28/19 00:00 98.0 107 22 121/71 (88) 96 07/27/19 23:49 102 20 94 Venturi Mask 10.0 45 100 20 92 07/27/19 23:39 102 20 94 Venturi Mask 10.0 45 100 20 92 07/27/19 23:32 93 07/27/19 21:14 105 22 99 Venturi Mask 10.0 45 104 22 96 07/27/19 20:22 92 139/68 07/27/19 20:00 Venturi Mask 10.0 07/27/19 20:00 10.0 45 07/27/19 20:00 98.6 89 22 137/67 (90) 97 07/27/19 19:13 103 23 95 Venturi Mask 10.0 45 98 23 94 07/27/19 19:09 90 2/13/20 19:07 95 Venturi Mask 10.0 45 07/27/19 17:19 101 136/68 07/27/19 16:00 93 07/27/19 16:00 Venturi Mask 10.0 07/27/19 16:00 97.7 101 20 136/68 (90) 95 07/27/19 15:00 82 24 98 Venturi Mask 10.0 45 86 25 94 Height (Feet): 5 Height (Inches): 5.00 Weight (Pounds): 309 Objective GENERAL: on VM CARDIOVASCULAR: No murmur. LUNGS: Poor air exchange. ABDOMEN: non tender, soft, non distended EXTREMITIES: No cyanosis or clubbing. 1+ edema. NEUROLOGIC: The patient is moving all extremities, slightly weak SKIN: erythema on L breast and abd wall improving Microbiology Date/Time Source Procedure Growth Status 07/26/19 20:45 Sputum Induced Gram Stain - Final Resulted 07/26/19 20:45 Sputum Culture - Preliminary Pseudomonas Species Resulted Laboratory Tests Test 07/28/19 03:50 07/28/19 10:15 White Blood Count 9.4 K/UL (4.8-10.8) Red Blood Count 3.95 M/UL (4.20-5.40) L Hemoglobin 11.7 G/DL (12.0-16.0) L Hematocrit 34.2 % (37.0-47.0) L Mean Corpuscular Volume 87 FL (80-99) Mean Corpuscular Hemoglobin 29.6 PG (27.0-31.0) Mean Corpuscular Hemoglobin Concent 34.2 G/DL (32.0-36.0) Red Cell Distribution Width 13.3 % (11.6-14.8) Platelet Count 270 K/UL (150-450) Mean Platelet Volume 5.1 FL (6.5-10.1) L Neutrophils (%) (Auto) 76.5 % (45.0-75.0) H Lymphocytes (%) (Auto) 16.1 % (20.0-45.0) L Monocytes (%) (Auto) 6.2 % (1.0-10.0) Eosinophils (%) (Auto) 0.0 % (0.0-3.0) Basophils (%) (Auto) 1.2 % (0.0-2.0) Prothrombin Time 10.3 SEC (9.30-11.50) Prothromb Time International Ratio 1.0 (0.9-1.1) Activated Partial Thromboplast Time 30 SEC (23-33) Sodium Level 139 MMOL/L (136-145) Potassium Level 3.2 MMOL/L (3.5-5.1) L Chloride Level 100 MMOL/L (98-107) Carbon Dioxide Level 33 MMOL/L (21-32) H Anion Gap 6 mmol/L (5-15) Blood Urea Nitrogen 9 mg/dL (7-18) Creatinine 0.5 MG/DL (0.55-1.30) L Estimat Glomerular Filtration Rate > 60 mL/min (>60) Glucose Level 147 MG/DL (74-106) H Calcium Level 9.4 MG/DL (8.5-10.1) Total Bilirubin 0.4 MG/DL (0.2-1.0) Aspartate Amino Transf (AST/SGOT) 13 U/L (15-37) L Alanine Aminotransferase (ALT/SGPT) 17 U/L (12-78) Alkaline Phosphatase 84 U/L (46-116) Pro-B-Type Natriuretic Peptide 384 pg/mL (0-125) H Total Protein 6.3 G/DL (6.4-8.2) L Albumin 2.5 G/DL (3.4-5.0) L Globulin 3.8 g/dL Albumin/Globulin Ratio 0.7 (1.0-2.7) L Vancomycin Level Trough 15.6 ug/mL (5.0-12.0) H Current Medications Medications (Trade) Dose Ordered Sig/Marleni Route PRN Reason Start Time Stop Time Status Last Admin Dose Admin Acetaminophen (Tylenol) 650 mg Q6H PRN ORAL Mild Pain/Temp > 100.5 07/24/19 17:00 08/19/19 16:59 Acetaminophen/ Hydrocodone Bitart ([place] 10/325) 1 tab Q6H PRN ORAL Severe Pain (Pain Scale 7-10) 07/27/19 12:00 08/03/19 11:59 Acetaminophen/ Hydrocodone Bitart ([place] 5/325) 1 tab Q6H PRN ORAL Moderate Pain (Pain Scale 4-6) 07/26/19 10:00 07/29/19 09:59 07/26/19 18:29 Acetylcysteine (Mucomyst) 400 mg Q8HRT INH 07/24/19 23:00 08/15/19 07:29 07/28/19 07:22 Aspirin (ASA) 81 mg DAILY ORAL 07/25/19 09:00 08/15/19 08:59 07/28/19 09:33 Budesonide (Pulmicort) 0.5 mg Q12HRT HHN 07/24/19 22:00 08/15/19 09:59 07/28/19 10:48 Dextrose (Dextrose 50%) 25 ml Q30M PRN IV Hypoglycemia 07/24/19 17:00 08/15/19 07:29 Dextrose (Dextrose 50%) 50 ml Q30M PRN IV Hypoglycemia 07/24/19 17:00 08/15/19 07:29 Diltiazem HCl (Cardizem) 60 mg QID ORAL 07/24/19 18:00 08/20/19 12:59 07/27/19 20:22 Docusate Sodium (Colace) 100 mg TWICE A DAY ORAL 07/24/19 18:00 08/15/19 08:59 07/28/19 09:32 Enoxaparin Sodium (Lovenox) 40 mg DAILY SUBQ 07/25/19 09:00 08/18/19 08:59 07/27/19 09:06 Furosemide (Lasix) 40 mg ONCE IV 07/28/19 13:21 07/28/19 15:00 Gabapentin (Neurontin) 300 mg THREE TIMES A DAY ORAL 07/24/19 18:00 08/15/19 08:59 07/27/19 17:18 Guaifenesin (Robitussin) 200 mg Q4H PRN ORAL FOR COUGH 07/24/19 17:00 08/19/19 16:59 Insulin Aspart (NovoLOG) BEFORE MEALS AND HS SUBQ 07/24/19 21:00 08/15/19 11:29 07/27/19 11:42 Levalbuterol HCl (Xopenex) 1.25 mg Q4HRT HHN 07/26/19 23:00 07/31/19 22:59 07/28/19 11:02 Levalbuterol HCl (Xopenex) 1.25 mg Q4HRT PRN HHN Shortness of Breath 07/26/19 18:52 07/31/19 18:51 Memantine (Namenda) 5 mg BID ORAL 07/24/19 18:00 08/15/19 08:59 07/28/19 09:33 Mirtazapine (Remeron) 15 mg BEDTIME ORAL 07/24/19 21:00 08/15/19 20:59 07/27/19 20:21 Naloxone HCl (Narcan) 0.1 mg PRN PRN IV Sedation scale 3 or 4 07/24/19 17:00 08/23/19 16:59 Ondansetron HCl (Zofran) 4 mg Q4H PRN IVP Nausea & Vomiting 07/24/19 17:00 08/21/19 16:59 07/28/19 05:55 Pantoprazole (Protonix) 40 mg BEFORE BREAKFAST ORAL 07/25/19 06:30 08/16/19 06:29 07/28/19 05:52 Piperacillin Sod/ Tazobactam Sod 3.375 gm/Sodium Chloride 110 ml @ 27.5 mls/hr Q8H IVPB 07/26/19 20:00 08/02/19 19:59 07/28/19 03:12 Polyethylene Glycol (Miralax) 17 gm DAILYPRN PRN ORAL Constipation 07/24/19 17:00 08/23/19 16:59 Potassium Chloride 100 ml @ 100 mls/hr Q1H IVPB 07/28/19 14:00 07/28/19 17:59 Promethazine HCl/ Codeine (Phenergan with Codeine) 5 ml Q4H PRN ORAL For Cough 07/24/19 17:00 08/19/19 16:59 Sennosides (Senokot) 8.6 mg QHS ORAL 07/24/19 21:00 08/15/19 20:59 07/27/19 20:21 Sertraline HCl (Zoloft) 50 mg DAILY ORAL 07/25/19 09:00 08/15/19 08:59 07/28/19 09:33 Sodium Chloride 400 ml @ 100 mls/hr Q4H IV 07/28/19 14:00 07/28/19 17:59 Sodium Phosphate (Fleet's Sodium Phosl Enema) 133 ml DAILYPRN PRN RECTAL Constipation 07/24/19 17:00 08/23/19 16:59 Vancomycin HCl (Vanco rx to dose) 1 ea DAILY PRN MISC Per rx protocol 07/26/19 18:00 08/25/19 17:59 Vancomycin/Sodium Chloride 275 ml @ 183.333 mls/hr Q12HR@1100,2300 IVPB 07/26/19 23:00 07/31/19 22:59 07/28/19 11:32 Ange Grant M.D. Jul 28, 2019 13:52
[2019-07-28] MEDS ORDERED: Sodium Chloride for KCL Premix X 4hrs IV SCH (14:00)
--- NOTE | 2019-07-28 17:26 | NUR ---
[employer] NOTES RECEIVED A CALL FROM DONN FROM [place], PT ACCEPTED TO ROOM ICU BED 5 TELE STATUS. NURSE TO CALL REPORT TO [phone]. NURSE TO CALL [facility] TO TRANSPORT WHEN CLEARED BY ALL. LORRIE MADE AWARE. DR MOISE WILL FOLLOW THE PT AT [place]. Addendum: 07/28/19 at 1730 by JUDIE JAMES RN RN [facility] [address] [place] [address]
--- NOTE | 2019-07-28 19:10 | NUR ---
NURSE NOTES: Pt report received from Catie MANCUSO SDU. pt is alert and oriented times 4, able to respond to commands. pt is on venturi mask, sating at 99%, no acute signs symptoms of resp distress noted. pt is on batting machine operator showing SR. no acute signs symptoms of cardiac distress noted. pt bed is low, locked, armed, bed rails up times 3, call light within easy reach. will follow plan of care.
--- NOTE | 2019-07-28 19:30 | NUR ---
HAND-OFF: Report given to Magdiel Julien RN.
[2019-07-28] MEDS: Sennosides 8.6mg tab ORAL SCH (20:21)
[2019-07-28] MEDS: HYDROcodone/Acetamin 5/325 tab ORAL PRN (21:38)
--- NOTE | 2019-07-28 23:38 | NUR ---
NURSE NOTES: spoke to LAUREL from [facility]. requested to have Vanco IV 1.25 gm to be rescheduled 05/28 30 due to pt already being on Zosyn IV 4hr infusion and pt is refusing another IV access. LAUREL will relay information to Pharmacist.
[2019-07-29] VITALS (7 sets, daily range): BP systolic 113–139; BP diastolic 63–82
[2019-07-29] MEDS: Vancomycin 1.25gm/NS Premix q24h IVPB SCH ×2 (00:46→12:54)
--- NOTE | 2019-07-29 03:00 | NUR ---
NURSE NOTES: ZOSYN 3.375gm IV started at this time. 0300 on. scanned later due to [employer] down time.
[2019-07-29] MEDS: Piperacillin/Tazobactam 3.375 GM in NS 110 ML IVPB SCH ×3 (06:20→20:25)
[2019-07-29] MEDS: NovoLOG Insulin Flexpen SUBQ SCH ×4 (06:29→21:00)
[2019-07-29 06:40] LABS: BASOPHILS % (AUTO) 1.3 % (0.0-2.0); EOSINOPHILS % (AUTO) 0.2 % (0.0-3.0); HEMOGLOBIN 11.8 G/DL (12.0-16.0); LYMPHOCYTES % (AUTO) 20.5 % (20.0-45.0); MEAN CORPUSCULAR VOLUME 89 FL (80-99); MONOCYTES % (AUTO) 8.5 % (1.0-10.0); NEUTROPHILS % (AUTO) 69.6 % (45.0-75.0); PLATELET COUNT 286 K/UL (150-450); RED BLOOD COUNT 3.95 M/UL (4.20-5.40); RED CELL DISTRIBUTION WIDTH 13.8 % (11.6-14.8)
[2019-07-29] MEDS: Budesonide HHN 0.25mg/2ml ud HHN SCH (06:51)
[2019-07-29] MEDS: Levalbuterol Inh UD 1.25mg/0.5ml HHN SCH ×3 (06:52→14:02)
[2019-07-29 07:09] LABS: ALANINE AMINOTRANSFERASE 16 U/L (12-78); ALBUMIN 2.5 G/DL (3.4-5.0); ALBUMIN/GLOBULIN RATIO 0.6 (1.0-2.7); ALKALINE PHOSPHATASE 74 U/L (46-116); ANION GAP 4 mmol/L (5-15); ASPARTATE AMINO TRANSFERASE 15 U/L (15-37); BILIRUBIN,TOTAL 0.4 MG/DL (0.2-1.0); BLOOD UREA NITROGEN 9 mg/dL (7-18); CALCIUM 9.2 MG/DL (8.5-10.1); CARBON DIOXIDE 34 MMOL/L (21-32); CHLORIDE 105 MMOL/L (98-107); CREATININE 0.5 MG/DL (0.55-1.30); POTASSIUM 3.7 MMOL/L (3.5-5.1); SODIUM 143 MMOL/L (136-145)
--- NOTE | 2019-07-29 07:30 | NUR ---
HAND-OFF: Report given to SHEILA MANCUSO SDU CHARGE. PT remains stable.
--- NOTE | 2019-07-29 07:42 | Pulmonology Progress Note ---
Assessment/Plan Assessment/Plan ASSESSMENT acute hypoxemic hypercapnic RF, requiring VM and FM likely acute on chronic CO2 retainer multifocal AT Intractable back pain due to lumbar DD with radiculopathy COPD Pseudomonas PNA left lung collapse pleuritic CP MELVIN Hypertension History of smoking Morbid obesity Peripheral neuropathy Hypertension Hypothyroidism Peripheral edema Diabetes mellitus Schizophrenia PLAN OF CARE ALBERTO SCX + pseudomonas, abx as per ID O2 titrate, HHN diuresis with close monitoring of volumes and cardiorenal parameters fup CXR, BNP L lung improving off Diamox continue budesonide inhaler was on trial of theophylline, no significant improvement, was dc due to MAT antitussive prn prior CXR 07/20 with complete opacification of L hemithorax at least partially due to atelectasis, CHF elevate left side of the chest CPT follow-up CXR -> opacified left hemithorax, unchanged US of the chest -> no pleural effusion CXR 07/23 better -> Improved aeration left lung with persistent moderate diffuse alveolar infiltrate suspicious for pneumonia and/or atelectasis. continue elevation L chest and CPT with HHN O2 and titrate to keep sat above 90% HHN PRN ABG noted started on trial of Diamox, now off Venous Duplex BLE troponin 2/5 negative, ECG 2/5 - multifocal AT as read by cardio s/p Diltiazem x1 IV, then started on oral Diltiazem Theophylline was dc as possible contributor to MAT, tachycardia resolving DVT prophylaxis BiPAP at night + PRN monitor lytes, correct prn BP management with Cardizem BS management with SSRI pain management as per pain specialist recommendation GI prophylaxis PT when dc will need HHN q 4 pending transfer to [facility]; was supposed to go today? case discussed and evaluated by supervising physician Subjective Allergies: Coded Allergies: HALOPERIDOL (Verified Allergy, Unknown, 06/16/17) Subjective remains on VM leukocytosis resolved, afebrile denies CP, + SOB, SCX + Pseudomonas Objective Last 24 Hour Vital Signs Date Time Temp Pulse Resp B/P (MAP) Pulse Ox O2 Delivery O2 Flow Rate FiO2 07/29/19 06:55 95 Venturi Mask 10.0 45 07/29/19 06:54 101 22 98 Venturi Mask 10.0 45 99 22 96 07/29/19 06:54 97 20 97 Venturi Mask 10.0 45 103 22 98 07/29/19 00:30 10.0 45 07/29/19 00:00 Bi-pap 07/29/19 00:00 97.8 101 20 123/73 (90) 100 07/29/19 00:00 105 07/28/19 23:06 84 22 98 Venturi Mask 10.0 45 98 23 95 07/28/19 22:08 98.2 07/28/19 21:34 95 20 98 Venturi Mask 10.0 45 98 18 97 07/28/19 20:21 100 115/64 07/28/19 20:00 102 07/28/19 20:00 Bi-pap 07/28/19 20:00 98.0 100 21 115/62 (79) 100 07/28/19 19:12 86 17 100 60 07/28/19 19:09 100 Bi-Pap 60 07/28/19 19:09 86 18 100 Bi-Pap 60 82 18 98 07/28/19 17:37 95 122/71 07/28/19 17:30 111 18 100 60 07/28/19 16:00 98.2 95 20 122/71 (88) 100 07/28/19 16:00 Bi-pap 07/28/19 15:35 91 07/28/19 15:08 97 20 93 60 07/28/19 13:00 91 22 97 60 07/28/19 12:00 99 07/28/19 12:00 98.2 89 20 115/64 (81) 95 07/28/19 12:00 Bi-pap 07/28/19 11:12 92 18 93 Bi-Pap 60 77 18 95 07/28/19 11:12 92 21 93 60 07/28/19 10:58 92 18 93 Bi-Pap 60 77 18 95 07/28/19 09:20 88 24 94 60 07/28/19 09:00 98.1 95 22 90/59 (69) 95 07/28/19 09:00 88 90/59 07/28/19 08:05 60 07/28/19 08:00 Bi-pap 07/28/19 07:50 45 07/28/19 07:44 109 24 96 45 07/28/19 07:43 102 Intake and Output 07/28/19 07/29/19 19:00 07:00 Intake Total 505.000 ml Balance 505.000 ml Intake Oral 120 ml IV Total 385.000 ml Objective General Appearance: no acute distress, awake, alert, oriented morbidly obese female HEENT: normocephalic, atraumatic, anicteric, mucous membranes moist, VN on Respiratory/Chest: no accessory muscle use, decreased BS on the left, crackles on the right Cardiovascular: normal rate, regular rhythm Abdomen: soft, non tender - obese Extremities: +1-2 BLE edema Neurologic/Psychiatric: abnormal gait, alert, oriented x 3, responsive Microbiology Date/Time Source Procedure Growth Status 07/26/19 20:45 Sputum Induced Gram Stain - Final Resulted 07/26/19 20:45 Sputum Culture - Preliminary Pseudomonas Aeruginosa Resulted Laboratory Tests 07/28/19 10:15: Vancomycin Level Trough 15.6H 07/29/19 05:13: White Blood Count 9.0, Red Blood Count 3.95L, Hemoglobin 11.8L, Hematocrit 35.0L , Mean Corpuscular Volume 89, Mean Corpuscular Hemoglobin 29.8, Mean Corpuscular Hemoglobin Concent 33.7, Red Cell Distribution Width 13.8, Platelet Count 286, Mean Platelet Volume 5.5L, Neutrophils (%) (Auto) 69.6, Lymphocytes ( %) (Auto) 20.5, Monocytes (%) (Auto) 8.5, Eosinophils (%) (Auto) 0.2, Basophils (%) (Auto) 1.3, Sodium Level 143, Potassium Level 3.7, Chloride Level 105, Carbon Dioxide Level 34H, Anion Gap 4L, Blood Urea Nitrogen 9, Creatinine 0.5L, Estimat Glomerular Filtration Rate > 60, Glucose Level 137H, Calcium Level 9.2, Total Bilirubin 0.4, Aspartate Amino Transf (AST/SGOT) 15, Alanine Aminotransferase (ALT/SGPT) 16, Alkaline Phosphatase 74, Pro-B-Type Natriuretic Peptide 392H, Total Protein 6.4, Albumin 2.5L, Globulin 3.9, Albumin/Globulin Ratio 0.6L Current Medications Medications (Trade) Dose Ordered Sig/Marleni Route PRN Reason Start Time Stop Time Status Last Admin Dose Admin Acetaminophen (Tylenol) 650 mg Q6H PRN ORAL Mild Pain/Temp > 100.5 07/24/19 17:00 08/19/19 16:59 Acetaminophen/ Hydrocodone Bitart (Jachin 10/325) 1 tab Q6H PRN ORAL Severe Pain (Pain Scale 7-10) 07/27/19 12:00 08/03/19 11:59 Acetaminophen/ Hydrocodone Bitart (Jachin 5/325) 1 tab Q6H PRN ORAL Moderate Pain (Pain Scale 4-6) 07/26/19 10:00 07/29/19 09:59 07/28/19 21:38 Acetylcysteine (Mucomyst) 400 mg Q8HRT INH 07/24/19 23:00 08/15/19 07:29 07/29/19 06:53 Aspirin (ASA) 81 mg DAILY ORAL 07/25/19 09:00 08/15/19 08:59 07/28/19 09:33 Budesonide (Pulmicort) 0.5 mg Q12HRT HHN 07/24/19 22:00 08/15/19 09:59 07/29/19 06:51 Dextrose (Dextrose 50%) 25 ml Q30M PRN IV Hypoglycemia 07/24/19 17:00 08/15/19 07:29 Dextrose (Dextrose 50%) 50 ml Q30M PRN IV Hypoglycemia 07/24/19 17:00 08/15/19 07:29 Diltiazem HCl (Cardizem) 60 mg QID ORAL 07/24/19 18:00 08/20/19 12:59 07/28/19 20:21 Docusate Sodium (Colace) 100 mg TWICE A DAY ORAL 07/24/19 18:00 08/15/19 08:59 07/28/19 17:36 Enoxaparin Sodium (Lovenox) 40 mg DAILY SUBQ 07/25/19 09:00 08/18/19 08:59 07/27/19 09:06 Gabapentin (Neurontin) 300 mg THREE TIMES A DAY ORAL 07/24/19 18:00 08/15/19 08:59 07/28/19 17:37 Guaifenesin (Robitussin) 200 mg Q4H PRN ORAL FOR COUGH 07/24/19 17:00 08/19/19 16:59 Insulin Aspart (NovoLOG) BEFORE MEALS AND HS SUBQ 07/24/19 21:00 08/15/19 11:29 07/28/19 20:25 Levalbuterol HCl (Xopenex) 1.25 mg Q4HRT HHN 07/26/19 23:00 07/31/19 22:59 07/29/19 06:52 Levalbuterol HCl (Xopenex) 1.25 mg Q4HRT PRN HHN Shortness of Breath 07/26/19 18:52 07/31/19 18:51 Memantine (Namenda) 5 mg BID ORAL 07/24/19 18:00 08/15/19 08:59 07/28/19 17:36 Mirtazapine (Remeron) 15 mg BEDTIME ORAL 07/24/19 21:00 08/15/19 20:59 07/28/19 20:21 Naloxone HCl (Narcan) 0.1 mg PRN PRN IV Sedation scale 3 or 4 07/24/19 17:00 08/23/19 16:59 Ondansetron HCl (Zofran) 4 mg Q4H PRN IVP Nausea & Vomiting 07/24/19 17:00 08/21/19 16:59 07/28/19 14:07 Pantoprazole (Protonix) 40 mg BEFORE BREAKFAST ORAL 07/25/19 06:30 08/16/19 06:29 07/29/19 06:32 Piperacillin Sod/ Tazobactam Sod 3.375 gm/Sodium Chloride 110 ml @ 27.5 mls/hr Q8H IVPB 07/26/19 20:00 08/02/19 19:59 07/29/19 06:20 Polyethylene Glycol (Miralax) 17 gm DAILYPRN PRN ORAL Constipation 07/24/19 17:00 08/23/19 16:59 Promethazine HCl/ Codeine (Phenergan with Codeine) 5 ml Q4H PRN ORAL For Cough 07/24/19 17:00 08/19/19 16:59 Sennosides (Senokot) 8.6 mg QHS ORAL 07/24/19 21:00 08/15/19 20:59 07/28/19 20:21 Sertraline HCl (Zoloft) 50 mg DAILY ORAL 07/25/19 09:00 08/15/19 08:59 07/28/19 09:33 Sodium Phosphate (Fleet's Sodium Phosl Enema) 133 ml DAILYPRN PRN RECTAL Constipation 07/24/19 17:00 08/23/19 16:59 Vancomycin HCl (Vanco rx to dose) 1 ea DAILY PRN MISC Per rx protocol 07/26/19 18:00 08/25/19 17:59 Vancomycin/Sodium Chloride 275 ml @ 183.333 mls/hr Q12H IVPB 07/29/19 00:30 08/03/19 00:29 07/29/19 00:46 Sharon Gimenez [employer] M[employer]PERATOR Jul 29, 2019 07:42
--- NOTE | 2019-07-29 08:00 | NUR ---
NURSE NOTES: Received patient in bed not in any respiratory distress denies any pain and discomfort. Called dr Charity brady to discharge patient to [place]. Spoke with Sharon brady to discharge patient. Spoke with Monica at [place] bed still available at ICU bed 5 will fax MAR at [phone]. Call report AT [phone].
--- NOTE | 2019-07-29 08:18 | Infectious Diseases Prog Note ---
Assessment/Plan Assessment/Plan Assessment: Sepsis, Sp PNA CHF L lung collapse -07/28 CXR: CHF. Probably no change in this regard. Left pleural effusion suspected. Left perihilar infiltrate airspace disease may be related to CHF or superimposed pneumonia. -07/27 CXR: Increasing pleural fluid and parenchymal consolidation/edema on the left,over one day.Stable right-sided interstitial congestion -07/26 sp cx PsA (sensi P) -07/23 CXR: Improved aeration left lung with persistent moderate diffuse alveolar infiltrate suspicious for pneumonia and/or atelectasis. There is unchanged mild superimposed pulmonary edema with improving mild left pleural effusion -07/21 US Chest:No pleural effusion -07/20 CXR: Complete opacification of left hemithorax at least partly due to atelectasis. Some volume loss noted.Congestive heart failure. -07/18 CXR: Suspected left perihilar infiltrate. Correlate clinically. Slightly worsening CH -07/15 CXR: Limited hypoventilatory exam. Prominence of the central bronchovascular structures may be in part due to low lung volumes. -influenza sc neg, sp cx normal resp frank Leukocytosis, recurrent; SP Afebrile REcent Abdominal wall cellulitis (L side) and L mastitis; improving CHF exacerbation Intractable Back pain MELVIN hx of aspiration PNA morbid obesity CAD/PA CHF HTN hypothryoidism hx of abdominal wall cellulitis MDD w/ psychotic features peripheral neuropathy s/p cholecystectomy s/p hysterectomy s/p appendectomy tobacco abuse HLD Dm2 COPD PA resident VRE and MRSA colonized Plan: -Continue empiric Zosyn #4 (abx d #12) for pna -IV Vanc #4/5 for cellulitis -07/26 SP Ceftriaxone #9 -/5 SP IV Vancomycin #2 -f/u cx -Monitor CBC/CMP, temperatares -aspiration precautions -Pulm f/u -f/u sp cx Thank you for consulting [facility]. Will continue to follow along with you. Discussed with RN. Subjective Allergies: Coded Allergies: HALOPERIDOL (Verified Allergy, Unknown, 06/16/17) Subjective Afebrile. No leukocytosis. Stable oxygen requirement. reports SOB Objective Vital Signs Last 24 Hour Vital Signs Date Time Temp Pulse Resp B/P (MAP) Pulse Ox O2 Delivery O2 Flow Rate FiO2 07/29/19 06:55 95 Venturi Mask 10.0 45 07/29/19 06:54 101 22 98 Venturi Mask 10.0 45 99 22 96 07/29/19 06:54 97 20 97 Venturi Mask 10.0 45 103 22 98 07/29/19 00:30 10.0 45 07/29/19 00:00 Bi-pap 07/29/19 00:00 97.8 101 20 123/73 (90) 100 07/29/19 00:00 105 07/28/19 23:06 84 22 98 Venturi Mask 10.0 45 98 23 95 07/28/19 22:08 98.2 07/28/19 21:34 95 20 98 Venturi Mask 10.0 45 98 18 97 07/28/19 20:21 100 115/64 07/28/19 20:00 102 07/28/19 20:00 Bi-pap 07/28/19 20:00 98.0 100 21 115/62 (79) 100 07/28/19 19:12 86 17 100 60 07/28/19 19:09 100 Bi-Pap 60 07/28/19 19:09 86 18 100 Bi-Pap 60 82 18 98 07/28/19 17:37 95 122/71 07/28/19 17:30 111 18 100 60 07/28/19 16:00 98.2 95 20 122/71 (88) 100 07/28/19 16:00 Bi-pap 07/28/19 15:35 91 07/28/19 15:08 97 20 93 60 07/28/19 13:00 91 22 97 60 07/28/19 12:00 99 07/28/19 12:00 98.2 89 20 115/64 (81) 95 07/28/19 12:00 Bi-pap 07/28/19 11:12 92 18 93 Bi-Pap 60 77 18 95 07/28/19 11:12 92 21 93 60 07/28/19 10:58 92 18 93 Bi-Pap 60 77 18 95 07/28/19 09:20 88 24 94 60 07/28/19 09:00 98.1 95 22 90/59 (69) 95 07/28/19 09:00 88 90/59 Height (Feet): 5 Height (Inches): 5.00 Weight (Pounds): 309 Objective GENERAL: on VM CARDIOVASCULAR: No murmur. LUNGS: Poor air exchange. ABDOMEN: non tender, soft, non distended EXTREMITIES: No cyanosis or clubbing. 1+ edema. NEUROLOGIC: The patient is moving all extremities, slightly weak SKIN: erythema on L breast and abd wall improving Microbiology Date/Time Source Procedure Growth Status 07/26/19 20:45 Sputum Induced Gram Stain - Final Complete 07/26/19 20:45 Sputum Culture - Final Pseudomonas Aeruginosa Usual Respiratory Frank Complete Laboratory Tests Test 07/28/19 10:15 07/29/19 05:13 Vancomycin Level Trough 15.6 ug/mL (5.0-12.0) H White Blood Count 9.0 K/UL (4.8-10.8) Red Blood Count 3.95 M/UL (4.20-5.40) L Hemoglobin 11.8 G/DL (12.0-16.0) L Hematocrit 35.0 % (37.0-47.0) L Mean Corpuscular Volume 89 FL (80-99) Mean Corpuscular Hemoglobin 29.8 PG (27.0-31.0) Mean Corpuscular Hemoglobin Concent 33.7 G/DL (32.0-36.0) Red Cell Distribution Width 13.8 % (11.6-14.8) Platelet Count 286 K/UL (150-450) Mean Platelet Volume 5.5 FL (6.5-10.1) L Neutrophils (%) (Auto) 69.6 % (45.0-75.0) Lymphocytes (%) (Auto) 20.5 % (20.0-45.0) Monocytes (%) (Auto) 8.5 % (1.0-10.0) Eosinophils (%) (Auto) 0.2 % (0.0-3.0) Basophils (%) (Auto) 1.3 % (0.0-2.0) Sodium Level 143 MMOL/L (136-145) Potassium Level 3.7 MMOL/L (3.5-5.1) Chloride Level 105 MMOL/L (98-107) Carbon Dioxide Level 34 MMOL/L (21-32) H Anion Gap 4 mmol/L (5-15) L Blood Urea Nitrogen 9 mg/dL (7-18) Creatinine 0.5 MG/DL (0.55-1.30) L Estimat Glomerular Filtration Rate > 60 mL/min (>60) Glucose Level 137 MG/DL (74-106) H Calcium Level 9.2 MG/DL (8.5-10.1) Total Bilirubin 0.4 MG/DL (0.2-1.0) Aspartate Amino Transf (AST/SGOT) 15 U/L (15-37) Alanine Aminotransferase (ALT/SGPT) 16 U/L (12-78) Alkaline Phosphatase 74 U/L (46-116) Pro-B-Type Natriuretic Peptide 392 pg/mL (0-125) H Total Protein 6.4 G/DL (6.4-8.2) Albumin 2.5 G/DL (3.4-5.0) L Globulin 3.9 g/dL Albumin/Globulin Ratio 0.6 (1.0-2.7) L Current Medications Medications (Trade) Dose Ordered Sig/Marleni Route PRN Reason Start Time Stop Time Status Last Admin Dose Admin Acetaminophen (Tylenol) 650 mg Q6H PRN ORAL Mild Pain/Temp > 100.5 07/24/19 17:00 08/19/19 16:59 Acetaminophen/ Hydrocodone Bitart (Continental 10/325) 1 tab Q6H PRN ORAL Severe Pain (Pain Scale 7-10) 07/27/19 12:00 08/03/19 11:59 Acetaminophen/ Hydrocodone Bitart (Continental 5/325) 1 tab Q6H PRN ORAL Moderate Pain (Pain Scale 4-6) 07/26/19 10:00 07/29/19 09:59 07/28/19 21:38 Acetylcysteine (Mucomyst) 400 mg Q8HRT INH 07/24/19 23:00 08/15/19 07:29 07/29/19 06:53 Aspirin (ASA) 81 mg DAILY ORAL 07/25/19 09:00 08/15/19 08:59 07/28/19 09:33 Budesonide (Pulmicort) 0.5 mg Q12HRT HHN 07/24/19 22:00 08/15/19 09:59 07/29/19 06:51 Dextrose (Dextrose 50%) 25 ml Q30M PRN IV Hypoglycemia 07/24/19 17:00 08/15/19 07:29 Dextrose (Dextrose 50%) 50 ml Q30M PRN IV Hypoglycemia 07/24/19 17:00 08/15/19 07:29 Diltiazem HCl (Cardizem) 60 mg QID ORAL 07/24/19 18:00 08/20/19 12:59 07/28/19 20:21 Docusate Sodium (Colace) 100 mg TWICE A DAY ORAL 07/24/19 18:00 08/15/19 08:59 07/28/19 17:36 Enoxaparin Sodium (Lovenox) 40 mg DAILY SUBQ 07/25/19 09:00 08/18/19 08:59 07/27/19 09:06 Gabapentin (Neurontin) 300 mg THREE TIMES A DAY ORAL 07/24/19 18:00 08/15/19 08:59 07/28/19 17:37 Guaifenesin (Robitussin) 200 mg Q4H PRN ORAL FOR COUGH 07/24/19 17:00 08/19/19 16:59 Insulin Aspart (NovoLOG) BEFORE MEALS AND HS SUBQ 07/24/19 21:00 08/15/19 11:29 07/28/19 20:25 Levalbuterol HCl (Xopenex) 1.25 mg Q4HRT HHN 07/26/19 23:00 07/31/19 22:59 07/29/19 06:52 Levalbuterol HCl (Xopenex) 1.25 mg Q4HRT PRN HHN Shortness of Breath 07/26/19 18:52 07/31/19 18:51 Memantine (Namenda) 5 mg BID ORAL 07/24/19 18:00 08/15/19 08:59 07/28/19 17:36 Mirtazapine (Remeron) 15 mg BEDTIME ORAL 07/24/19 21:00 08/15/19 20:59 07/28/19 20:21 Naloxone HCl (Narcan) 0.1 mg PRN PRN IV Sedation scale 3 or 4 07/24/19 17:00 08/23/19 16:59 Ondansetron HCl (Zofran) 4 mg Q4H PRN IVP Nausea & Vomiting 07/24/19 17:00 08/21/19 16:59 07/28/19 14:07 Pantoprazole (Protonix) 40 mg BEFORE BREAKFAST ORAL 07/25/19 06:30 08/16/19 06:29 07/29/19 06:32 Piperacillin Sod/ Tazobactam Sod 3.375 gm/Sodium Chloride 110 ml @ 27.5 mls/hr Q8H IVPB 07/26/19 20:00 08/02/19 19:59 07/29/19 06:20 Polyethylene Glycol (Miralax) 17 gm DAILYPRN PRN ORAL Constipation 07/24/19 17:00 08/23/19 16:59 Promethazine HCl/ Codeine (Phenergan with Codeine) 5 ml Q4H PRN ORAL For Cough 07/24/19 17:00 08/19/19 16:59 Sennosides (Senokot) 8.6 mg QHS ORAL 07/24/19 21:00 08/15/19 20:59 07/28/19 20:21 Sertraline HCl (Zoloft) 50 mg DAILY ORAL 07/25/19 09:00 08/15/19 08:59 07/28/19 09:33 Sodium Phosphate (Fleet's Sodium Phosl Enema) 133 ml DAILYPRN PRN RECTAL Constipation 07/24/19 17:00 08/23/19 16:59 Vancomycin HCl (Vanco rx to dose) 1 ea DAILY PRN MISC Per rx protocol 07/26/19 18:00 08/25/19 17:59 Vancomycin/Sodium Chloride 275 ml @ 183.333 mls/hr Q12H IVPB 07/29/19 00:30 08/03/19 00:29 07/29/19 00:46 Alen Carter MD Jul 29, 2019 08:18
[2019-07-29] MEDS: Sertraline 50mg tab ORAL SCH (09:17)
[2019-07-29] MEDS: Docusate 100mg cap ORAL SCH ×2 (09:17→17:40)
[2019-07-29] MEDS: Memantine 5 MG TAB ORAL SCH ×2 (09:17→17:40)
[2019-07-29] MEDS: Aspirin Baby 81mg ORAL SCH (09:24)
[2019-07-29] MEDS: dilTIAZem HCl 60mg tab ORAL SCH ×4 (09:25→20:54)
[2019-07-29] MEDS: Enoxaparin 40mg Inj SUBQ SCH (09:26)
--- NOTE | 2019-07-29 15:05 | Diagnostic Imaging Report ---
EXAM: XR Chest, 1 View CLINICAL HISTORY: DYSPNEA TECHNIQUE: Frontal view of the chest. COMPARISON: Chest x-ray dated 07/28/19 FINDINGS: Lungs: Persistent perihilar interstitial and alveolar opacities. Pleural space: Interval significant improvement of the left pleural effusion. Heart: Unremarkable. No cardiomegaly. Mediastinum: Unremarkable. Bones/joints: Unremarkable. Vasculature: Atherosclerotic calcifications are noted within the aortic arch. Tubes, lines and devices: Telemetry leads overlie the thorax. IMPRESSION: 1. Interval significant improvement of the left pleural effusion. 2. Persistent perihilar interstitial and alveolar opacities.
--- NOTE | 2019-07-29 15:25 | NUR ---
NURSE NOTES: Received report from JAMEE Pepper, pt. in bed awake- A/O x's 4-able to make needs known, no signs or symptoms of acute cardiac or respiratory distress noted, call light within easy reach, bed alarm on, side rails up x's3 and safety brakes engaged, pt. appears to be resting comfortably in bed watching television, pt. appears to be sating well on Venturi mask 10L Fio2 at 45%- no distress noted, Huertas intact and draining to gravity, HOB elevated, suction at bed side, SARAH 20G IV intact and patent- TKO, safety measures continued, will continue with plan of care.
--- NOTE | 2019-07-29 15:30 | NUR ---
HAND-OFF: Report given to Belem.
--- NOTE | 2019-07-29 15:31 | General Progress Note ---
Assessment/Plan Problem List: (1) CAD (coronary artery disease) ICD Codes: I25.10 - Atherosclerotic heart disease of [place] coronary artery without angina pectoris SNOMED: 23397689 (2) Schizophrenia ICD Codes: F20.9 - Schizophrenia, unspecified SNOMED: 06751043 (3) Morbid obesity ICD Codes: E66.01 - Morbid (severe) obesity due to excess calories SNOMED: 195941308 (4) COPD (chronic obstructive pulmonary disease) ICD Codes: J44.9 - Chronic obstructive pulmonary disease, unspecified SNOMED: 53538026 (5) Hypothyroidism ICD Codes: E03.9 - Hypothyroidism, unspecified SNOMED: 71820101 (6) Peripheral edema ICD Codes: R60.9 - Edema, unspecified SNOMED: 195704421 (7) Chest pain ICD Codes: R07.9 - Chest pain, unspecified SNOMED: 90688365 (8) MELVIN (obstructive sleep apnea) ICD Codes: G47.33 - Obstructive sleep apnea (adult) (pediatric) SNOMED: 55512463 (9) HTN (hypertension) ICD Codes: I10 - Essential (primary) hypertension SNOMED: 72050102 Status: progressing Assessment/Plan: obesity edema atypical cp cad no sob reviewed chart and labs Subjective ROS Limited/Unobtainable: Yes Allergies: Coded Allergies: HALOPERIDOL (Verified Allergy, Unknown, 06/16/17) Objective Last 24 Hour Vital Signs Date Time Temp Pulse Resp B/P (MAP) Pulse Ox O2 Delivery O2 Flow Rate FiO2 07/29/19 14:03 87 20 90 Venturi Mask 10.0 45 92 22 96 07/29/19 13:49 97.9 07/29/19 12:36 99 128/71 07/29/19 12:00 98.6 99 24 128/71 (90) 94 07/29/19 11:45 93 07/29/19 10:58 104 20 98 Venturi Mask 10.0 45 97 24 97 07/29/19 09:25 76 126/78 07/29/19 08:18 135 07/29/19 08:00 97.9 102 25 126/78 (94) 98 07/29/19 07:53 99 07/29/19 06:55 95 Venturi Mask 10.0 45 07/29/19 06:54 101 22 98 Venturi Mask 10.0 45 99 22 96 07/29/19 06:54 97 20 97 Venturi Mask 10.0 45 103 22 98 07/29/19 04:00 Bi-pap 07/29/19 04:00 90 07/29/19 04:00 97.6 105 22 130/71 (90) 100 07/29/19 00:30 10.0 45 07/29/19 00:00 Bi-pap 07/29/19 00:00 97.8 101 20 123/73 (90) 100 07/29/19 00:00 105 07/28/19 23:06 84 22 98 Venturi Mask 10.0 45 98 23 95 07/28/19 22:08 98.2 07/28/19 21:34 95 20 98 Venturi Mask 10.0 45 98 18 97 07/28/19 20:21 100 115/64 07/28/19 20:00 102 07/28/19 20:00 Bi-pap 07/28/19 20:00 98.0 100 21 115/62 (79) 100 07/28/19 19:12 86 17 100 60 07/28/19 19:09 100 Bi-Pap 60 07/28/19 19:09 86 18 100 Bi-Pap 60 82 18 98 07/28/19 17:37 95 122/71 07/28/19 17:30 111 18 100 60 07/28/19 16:00 98.2 95 20 122/71 (88) 100 07/28/19 16:00 Bi-pap 07/28/19 15:35 91 Intake and Output 07/28/19 07/29/19 19:00 07:00 Intake Total 505.000 ml 385.000 ml Output Total 850 ml 100 ml Balance -345.000 ml 285.000 ml Intake Oral 120 ml IV Total 385.000 ml 385.000 ml Output Urine Total 850 ml 100 ml Laboratory Tests 07/29/19 05:13: White Blood Count 9.0, Red Blood Count 3.95L, Hemoglobin 11.8L, Hematocrit 35.0L , Mean Corpuscular Volume 89, Mean Corpuscular Hemoglobin 29.8, Mean Corpuscular Hemoglobin Concent 33.7, Red Cell Distribution Width 13.8, Platelet Count 286, Mean Platelet Volume 5.5L, Neutrophils (%) (Auto) 69.6, Lymphocytes ( %) (Auto) 20.5, Monocytes (%) (Auto) 8.5, Eosinophils (%) (Auto) 0.2, Basophils (%) (Auto) 1.3, Sodium Level 143, Potassium Level 3.7, Chloride Level 105, Carbon Dioxide Level 34H, Anion Gap 4L, Blood Urea Nitrogen 9, Creatinine 0.5L, Estimat Glomerular Filtration Rate > 60, Glucose Level 137H, Calcium Level 9.2, Total Bilirubin 0.4, Aspartate Amino Transf (AST/SGOT) 15, Alanine Aminotransferase (ALT/SGPT) 16, Alkaline Phosphatase 74, Pro-B-Type Natriuretic Peptide 392H, Total Protein 6.4, Albumin 2.5L, Globulin 3.9, Albumin/Globulin Ratio 0.6L Height (Feet): 5 Height (Inches): 5.00 Weight (Pounds): 309 Cardiovascular: normal rate Respiratory/Chest: lungs clear Abdomen: soft Kate Joe MD Jul 29, 2019 15:31
--- NOTE | 2019-07-29 16:00 | NUR ---
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
[2019-07-29] MEDS ORDERED: NS 275ml ONE (16:05)
[2019-07-29] MEDS ORDERED: Tubing IV Secondary IV ONE (16:05)
[2019-07-29] MEDS ORDERED: Levalbuterol Inh UD 1.25mg/0.5ml HHN PRN (20:15)
[2019-07-29] MEDS: Sennosides 8.6mg tab ORAL SCH (20:53)
--- NOTE | 2019-07-29 21:00 | Progress Note ---
DATE: 07/29/2019 SUBJECTIVE: This is a 73-year-old female patient. This is a patient who came to the hospital. She is confused and disorganized mood labile. She has cough, chest pain, some respiratory problems that are causing her to have decline in cognition below baseline. That is why her attending has requested a daily psychiatric consultation. MENTAL STATUS EXAMINATION: This is a 73-year-old female patient. Appearance is disheveled. Attitude, irritable and agitated. Affect, guarded and restricted. Intellect poor. Mood, depressed and anxious. Motor activity, psychomotor agitation. Attention span is poor. Orientation x2. Speech is low volume, slurred. Thought process, disorganized and illogical. Insight and judgment is poor. DIAGNOSIS: Major depressive disorder, mild, recurrent with psychotic features. PLAN: I am going to continue treatment with medications to stabilize her mood. Twenty minutes of cognitive behavioral therapy to help identify automatic negative thoughts and help to convert her negative thoughts to more positive thoughts to reduce depression, anxiety, and mood lability. Chart was reviewed and discussed with staff. Seen and assessed at bedside. Filipe Yen M.D. DR: YAAKOV JOB#: [id number] CC:
--- NOTE | 2019-07-29 22:07 | NUR ---
HAND-OFF: Report given to JAMEE Carrasco- with [facility]- pt. discharged for [facility]- pt. remains stable upon transfer and no sigsn of distress noted.
[2019-07-29] MEDS ORDERED: Levalbuterol Inh UD 1.25mg/0.5ml HHN SCH (23:00)
--- NOTE | 2019-08-01 09:15 | Discharge Summary ---
Discharge Summary Discharge Summary _ DATE OF ADMISSION: 07/15/2019 DATE OF DISCHARGE: 07/29/2019 DISCHARGED BY: Dr. Lane REASON FOR ADMISSION: 73 years old female with past medical history of COPD, CHF, obstructive sleep apnea, hypertension, peripheral neuropathy, hypothyroidism, schizophrenia, history of smoking, morbid obesity, was brought from the [facility] facility with the right upper back pain and cough. Upon evaluation patient was on supplemental oxygen 4 L via nasal cannula with saturation 96%. Laboratory work-up revealed leukocytosis WBC 14, stable hemoglobin, hematocrit and platelet count. Stable electrolytes and renal parameters. Glucose 153. Pro BNP 385. Stable LFT and lipase. EKG revealed sinus tachycardia , no acute ST elevation with normal axis. Chest x-ray demonstrated limited atelectasis and congestion. Patient subsequently admitted for further management. CONSULTANTS: rn night Dr. Paulino neurologist Dr. Nash pulmonary Dr. Gan ID specialist Dr. Bernstein cellar packer Dr. Addison pain specialist Dr. Hicks psychiatrist Dr. Yen HOSPITAL COURSE: Patient admitted to monitored floor. Supplemental oxygen provided and titrated to keep pulse oximetry above 92% . Pulmonary toilet with bronchodilator provided. DVT prophylaxis provided. Trial of theophylline instituted. Patient was followed -up with chest x-ray. Patient started on empiric antibiotic as per ID specialist recommendation for presumed pneumonia. Initial sputum culture was negative. Influenza swab was negative. Patient started on diuresis with close monitoring of volumes and cardiorenal parameters. EKG revealed multifocal atrial tachycardia as read by rn night. Patient received IV diltiazem and started on oral diltiazem for adequate rate control. Troponin was negative. Venous duplex bilateral lower extremity was negative. Theophylline was discontinued as a possible contributor to MAT. Tachycardia eventually resolved. Blood pressure was managed with Cardizem. Echocardiogram demonstrated normal left ventricular chamber size, systolic function to the extent visualized. Moderately elevated left atrial pressure grade 2. Right ventricular systolic pressure of 27. Study was technically difficult , given patient body habitus. Chest x-ray on revealed complete opacification of left hemithorax , at least partially due to atelectasis and CHF. Positional therapy provided along with CPT. Ultrasound of the chest revealed no pleural effusion. Follow-up chest x-ray on 07/23 reveal improved aeration of the left lung with persistent moderate diffuse alveolar infiltrate, suspicious for pneumonia . Repeated sputum culture revealed Pseudomonas. Antibiotic regimen optimized as per ID specialist recommendation. Positional therapy continued with CPT and HHN. Supplemental oxygen further titrated to keep pulse oximetry above 90%. Patient was followed-up with ABG. Patient started on Diamox with some improvement in CO2. Diamox was stopped in few days. BiPAP provided at at night and as needed. Blood sugar was managed with sliding scale of insulin. Pain management with addressed as per pain specialist recommendation. GI prophylaxis provided. Synthroid continued. Acid-base parameters and renal parameters were closely monitored. Potassium was replaced. Per psychiatrist patient had major depressive disorder ,mild recurrent ,with psychotic features. Reality orientation and supportive therapy provided. Psychiatric medication regimen was optimized by psychiatry. Last chest x-ray on 07/29 revealed interval significant improvement of the left pleural effusion with persistent perihilar interstitial and alveolar opacity. Placement was found in the [facility] for pulmonary rehabilitation. Patient was stable for discharge prior to discharge no leukocytosis. FINAL DIAGNOSES: Acute hypoxemic hypercapnic respiratory failure requiring Ventimask Acute on chronic CO2 retainer Multifocal atrial tachycardia COPD Pseudomonas pneumonia Left lung collapse Pleuritic chest pain Obstructive sleep apnea Congestive heart failure Intractable back pain likely due to lumbar DDD with radiculopathy Hypertension Morbid obesity Metabolic alkalosis Hypokalemia History of smoking Peripheral neuropathy Hypothyroidism Diabetes mellitus Peripheral edema Major depressive disorder mild, recurrent with psychotic features DISCHARGE MEDICATIONS: See Medication Reconciliation list. DISCHARGE INSTRUCTIONS: Patient was discharged to [facility] for further management and pulmonary rehabilitation. Follow-up with a healthcare provider at the facility. Sharon Gimenez NP Aug 01, 2019 09:15
== END 2019-07-29 22:40 | DRG 551 ==
LOC: EDUNIT# 20:41 → EDBD 20:41 → EMR 22:07 → 4E 22:13 → EDBEDREQ 22:56 → 4E 07-18 14:09 → 2E 07-20 15:20 → 2W 07-24 16:32
DX: M51.16 Intervertebral disc disorders with radiculopathy, lumbar region (principal); A41.9 Sepsis, unspecified organism; J96.02 Acute respiratory failure with hypercapnia; J15.1 Pneumonia due to Pseudomonas; G95.9 Disease of spinal cord, unspecified; Z68.44 Body mass index [BMI] 60.0-69.9, adult; E46 Unspecified protein-calorie malnutrition; F33.3 Major depressive disorder, recurrent, severe with psychotic symptoms; L03.311 Cellulitis of abdominal wall; E66.2 Morbid (severe) obesity with alveolar hypoventilation; I47.1 Supraventricular tachycardia; J44.0 Chronic obstructive pulmonary disease with (acute) lower respiratory infection; E87.3 Alkalosis; J98.11 Atelectasis; I11.0 Hypertensive heart disease with heart failure; I50.9 Heart failure, unspecified; E11.42 Type 2 diabetes mellitus with diabetic polyneuropathy; E03.9 Hypothyroidism, unspecified; I25.10 Atherosclerotic heart disease of native coronary artery without angina pectoris; I25.2 Old myocardial infarction; E87.6 Hypokalemia; G47.33 Obstructive sleep apnea (adult) (pediatric)
CPT/HCPCS: 36415; 36600; 71045; 76604; 80048; 80053; 80202; 82607; 82803; 82962; 83690; 83735; 83880; 83921; 84100; 84484; 85025; 85610; 85651; 85730; 86140; 86710; 87070; 87081; 87181; 87205; 93005; 93306; 94640; 94660; 94664; 96374; 96375; 96376; 99285; J1815; J2405; J7620; J8499